=== PATIENT | female | born 1955 | race Caucasian/White ===

== ENCOUNTER 2017-10-19 14:09 | Emergency (ER) | payer OTHER, SELFPAY ==
[2017-10-19] MEDS ORDERED: MORPHINE 4 MG/ML SYR ONE (15:01)
[2017-10-19] MEDS ORDERED: ONDANSETRON 4 MG/2 ML VIAL ONE (15:02)
--- NOTE | 2017-10-19 17:46 | EDPHYS ---
Physician Documentation [facility] Name: Bernadine Dalal Age: 62 yrs Sex: Female : 1955 Arrival Date: 10/19/2017 Time: 14:12 Bed 23 Private MD: Patric Cole E ED Physician Osito Rodriguez HPI: 10/19 14:46 This 62 yrs old Female presents to ER via Ambulatory with complaints of Hip jmm Pain. 14:46 The patient or guardian reports pain. The complaints affect the left hip. Onset: The jmm symptoms/episode began/occurred gradually, 4 day(s) ago. This is a 62 year old female with a history of svt and hip fracture with multiple revisions that presents to the ED with worsening left lateral hip pain over the past 3 days. Patient states she stepped in a hole 4 days prior with no initial pain to her hip. Patient complains of worsening pain since. Patient is scheduled to see her orthopedic surgeon due to ongoing pain to the hip that she was most recently told, was most likely a muscle strain. Patient denies fever. Patient is concerned her hardware may be out of place. . Historical: - Allergies: 14:17 PENICILLINS; hj 14:17 Vancomycin; hj - Home Meds: 14:17 fentanyl patch [Active]; Robaxin Oral [Active]; hj - PMHx: 14:17 prolapsed uterus; SVT; UTI; hj - PSHx: 14:17 L hip; hj - Immunization history:: Adult Immunizations up to date. - Social history:: Smoking status: Patient/guardian denies using tobacco, Patient/guardian denies using alcohol. - Ebola Screening: : Patient negative for fever greater than or equal to 101.5 degrees Fahrenheit, and additional compatible Ebola Virus Disease symptoms Patient denies exposure to infectious person Patient denies travel to an Ebola-affected area in the 21 days before illness onset. ROS: 14:46 Constitutional: Negative for fever, chills, and weight loss, Cardiovascular: Negative jmm for chest pain, palpitations, and edema, Respiratory: Negative for shortness of breath, cough, wheezing, and pleuritic chest pain. 14:46 Neuro: Negative for headache, weakness, numbness, tingling, and seizure. 14:46 MS/extremity: Positive for pain. 14:46 All other systems are negative. Exam: 14:46 Head/Face: atraumatic. Chest/axilla: Normal chest wall appearance and motion. [facility] Cardiovascular: Regular rate and rhythm. No edema appreciated Respiratory: Normal respirations, no respiratory distress appreciated 14:46 Constitutional: The patient appears alert, awake, uncomfortable. 14:46 Musculoskeletal/extremity: ROM: limited passive range of motion due to pain, in the left hip, mild tenderness on palpation of the left lateral proximal femur. 14:46 Skin: Appearance: Color: normal in color. 14:46 Neuro: Orientation: is normal, Mentation: is normal, Memory: is normal. 14:46 Psych: Behavior/mood is pleasant, cooperative. Vital Signs: 14:18 BP 139 / 91; Pulse 75; Resp 18; Temp 98.0; Pulse Ox 100% on R/A; Weight 88.9 kg; Height hj 5 ft. 9 in. (175.26 cm); Pain 10/10; 15:11 BP 130 / 76; Pulse 73; Resp 18; Pulse Ox 97% on R/A; Pain 8/10; mg2 16:48 BP 109 / 71; Pulse 60; Resp 18; Pulse Ox 100% on R/A; tl3 18:02 BP 108 / 67; Pulse 67; Resp 18; Pulse Ox 98% on R/A; tl3 14:18 Body Mass Index 28.94 (88.90 kg, 175.26 cm) MDM: 14:46 Patient medically screened. [facility] 17:16 Data reviewed: vital signs, EMS record, radiologic studies, plain films. Response to [facility] treatment: the patient's symptoms have markedly improved after treatment, After administration of analgesics, the patient is able to bear weight without difficulty. Patient states feeling much better. . 17:41 Physician consultation: Jerman Wayne MD. ED course: Patient advised to follow up with [facility] orthopedics for further evaluation. otherwise given strict return precautions. . 10/19 14:46 Order name: Hip Left 2 View XRAY; Complete Time: 17:49 [facility] Administered Medications: 15:09 Drug: morphine 4 mg Route: IVP; Site: left hand; mg2 15:56 Follow up: Response: Pain is decreased tl3 15:09 Drug: Zofran 4 mg Route: IVP; Site: left hand; mg2 15:55 Follow up: Response: No adverse reaction tl3 Disposition: 10/19/17 17:45 Discharged to Home. Impression: Pain in left hip. - Condition is Stable. - Discharge Instructions: Joint Pain. - Prescriptions for Zanaflex 4 mg Oral tablet - take 1 tablet by ORAL route every 6 hours as needed not to exceed 3 doses in 24 hours; 20 tablet. Ultram 50 mg Oral Tablet - take 1 tablet by ORAL route every 6 hours As needed; 20 tablet. - Medication Reconciliation Form, Thank You Letter, Antibiotic Education, Prescription Opioid Use form. - Follow up: Private Physician; When: 2 - 3 days; Reason: Recheck today's complaints, Continuance of care, Re-evaluation by your physician. Addendum: 10/23/2017 22:13 Co-signature as Attending Physician, Osito Rodriguez MD Available for consultation at p s1 all times. . Signatures: Dispatcher [employer] EDMS Donald Diop PA PA jmm Joaquin, Henry, RN RN hj Osito Rodriguez MD MD ps1 Ginette Bryant RN RN tl3 Forest Duncan RN RN mg2 Corrections: (The following items were deleted from the chart) 10/19 18:04 17:45 10/19/2017 17:45 Discharged to Home. Impression: Pain in left hip. Condition is tl3 Stable. Forms are Medication Reconciliation Form, Thank You Letter, Antibiotic Education, Prescription Opioid Use. Follow up: Private Physician; When: 2 - 3 days; Reason: Recheck today's complaints, Continuance of care, Re-evaluation by your physician. praveen
--- NOTE | 2017-10-19 17:46 | RAD REPORT ---
EXAM DESCRIPTION: RAD - Hip Left 2 View - 10/19/2017 3:42 pm CLINICAL HISTORY: Left hip and leg pain, pain with ambulation. Extensive surgical history COMPARISON: September 2014 FINDINGS: Multiple AP and lateral views of the left hip and left hip prosthesis obtained. Since the prior examination long length surgical hardware has been removed from the lateral femur. The long thalia m revision implant remains in place. No subsidence of the implants. Bones are osteopenic. No fracture is identifiable. There is lucency along the medial margin of the femoral component in the intertroch anteric region. No lucency along the lateral margin of the proximal implant. Femoral component is wel l positioned. No fracture or acute left armida pelvic finding. No pathologic bone process. No periartic ular mass or hematoma seen. IMPRESSION: No fracture or acute bone process identified. No subsidence of the long-stem revision implant.
--- NOTE | 2017-10-19 17:46 | ER ---
Nurse's Notes [facility] Name: Bernadine Dalal Age: 62 yrs Sex: Female : 1955 Arrival Date: 10/19/2017 Time: 14:12 Bed 23 Private MD: Patric Cole E Diagnosis: Pain in left hip Presentation: 10/19 14:14 Presenting complaint: Patient states: art had 2 hip replacement, now my L hip is hj hurting and shifting; went to my ortho and gave a a steroid shot; i go to my pain doctor for fentanyl patch , now the fentanyl is not working with the pain that i have; its hard for me to walk with this; pain 12/19;. Transition of care: patient was not received from another setting of care. Onset of symptoms was October 19, 2017. Risk Assessment: Do you want to hurt yourself or someone else? Patient reports no desire to harm self or others. Initial Sepsis Screen: Does the patient meet any 2 criteria? No. Patient's initial sepsis screen is negative. Does the patient have a suspected source of infection? No. Patient's initial sepsis screen is negative. Care prior to arrival: None. 14:14 Method Of Arrival: Ambulatory 14:14 Acuity: JODEE 4 hj Triage Assessment: 14:17 General: Appears in no apparent distress. uncomfortable, Behavior is calm, cooperative, hj appropriate for age. General: Behavior is crying. Pain:. Pain: Complains of pain in left hip. Historical: - Allergies: 14:17 PENICILLINS; hj 14:17 Vancomycin; hj - Home Meds: 14:17 fentanyl patch [Active]; Robaxin Oral [Active]; hj - PMHx: 14:17 prolapsed uterus; SVT; UTI; hj - PSHx: 14:17 L hip; hj - Immunization history:: Adult Immunizations up to date. - Social history:: Smoking status: Patient/guardian denies using tobacco, Patient/guardian denies using alcohol. - Ebola Screening: : Patient negative for fever greater than or equal to 101.5 degrees Fahrenheit, and additional compatible Ebola Virus Disease symptoms Patient denies exposure to infectious person Patient denies travel to an Ebola-affected area in the 21 days before illness onset. Screenin:18 Abuse screen: Denies threats or abuse. Denies injuries from another. Nutritional hj screening: No deficits noted. Tuberculosis screening: No symptoms or risk factors identified. Fall Risk Fall in past 12 months (25 points). Assessment: 15:10 General: Appears in no apparent distress. comfortable, Behavior is calm, cooperative. mg2 Pain: Complains of pain in pelvis and left hip Pain does not radiate. Pain currently is 8 out of 10 on a pain scale. Quality of pain is described as aching, Pain began gradually, Is intermittent, Alleviated by medications, Aggravated by increased activity, repositioning, weight bearing. Neuro: Level of Consciousness is awake, alert, obeys commands, Oriented to person, place, time, situation. Cardiovascular: Capillary refill < 3 seconds Patient's skin is warm and dry. Respiratory: Airway is patent Respiratory effort is even, unlabored, Respiratory pattern is regular, symmetrical. GI: No signs and/or symptoms were reported involving the gastrointestinal system. : No signs and/or symptoms were reported regarding the genitourinary system. EENT: No signs and/or symptoms were reported regarding the EENT system. Derm: Skin is intact, Skin is pink, warm \T\ dry. normal. Musculoskeletal: Circulation, motion, and sensation intact. Reports pain in left hip. 16:48 Reassessment: Patient appears in no apparent distress at this time. No changes from tl3 previously documented assessment. Patient and/or family updated on plan of care and expected duration. Pain level reassessed. Patient is alert, oriented x 3, equal unlabored respirations, skin warm/dry/pink. awaiting radiology report. 18:02 Reassessment: Patient appears in no apparent distress at this time. No changes from tl3 previously documented assessment. Patient and/or family updated on plan of care and expected duration. Pain level reassessed. Patient is alert, oriented x 3, equal unlabored respirations, skin warm/dry/pink. Vital Signs: 14:18 BP 139 / 91; Pulse 75; Resp 18; Temp 98.0; Pulse Ox 100% on R/A; Weight 88.9 kg; Height hj 5 ft. 9 in. (175.26 cm); Pain 10/10; 15:11 BP 130 / 76; Pulse 73; Resp 18; Pulse Ox 97% on R/A; Pain 8/10; mg2 16:48 BP 109 / 71; Pulse 60; Resp 18; Pulse Ox 100% on R/A; tl3 18:02 BP 108 / 67; Pulse 67; Resp 18; Pulse Ox 98% on R/A; tl3 14:18 Body Mass Index 28.94 (88.90 kg, 175.26 cm) ED Course: 14:12 Patient arrived in ED. sb2 14:13 Patric Cole MD is Private Physician. sb2 14:16 Triage completed. hj 14:18 Arm band placed on right wrist. hj 14:18 Patient has correct armband on for positive identification. Bed in low position. Call light in reach. Side rails up X 1. 14:36 Donald Diop PA is PHCP. m 14:36 Osito Rodriguez MD is Attending Physician. jmm 15:09 Inserted saline lock: 22 gauge in left hand, using aseptic technique. mg2 15:33 Ginette Bryant, TAMMY is Primary Nurse. tl3 15:33 Patient moved to radiology. tl3 15:43 Hip Left 2 View XRAY In Process Unspecified. EDMS 18:02 No provider procedures requiring assistance completed. IV discontinued, intact, tl3 bleeding controlled, No redness/swelling at site. Pressure dressing applied. Administered Medications: 15:09 Drug: morphine 4 mg Route: IVP; Site: left hand; mg2 15:56 Follow up: Response: Pain is decreased tl3 15:09 Drug: Zofran 4 mg Route: IVP; Site: left hand; mg2 15:55 Follow up: Response: No adverse reaction tl3 Outcome: 17:45 Discharge ordered by MD. [facility] 18:02 Discharged to home ambulatory. tl3 18:02 Condition: stable 18:02 Discharge instructions given to patient, Instructed on discharge instructions, follow up and referral plans. medication usage, Demonstrated understanding of instructions, follow-up care, medications, Prescriptions given X 2. 18:04 Patient left the ED. tl3 Signatures: Dispatcher [employer] EDMS Donald Diop PA PA Boogie Le, Stephanie Ma RN sb2 Ginette Bryant, RN RN tl3 Forest Duncan, TAMMY RN mg2 Corrections: (The following items were deleted from the chart) 14:21 14:18 Pulse 75bpm; Resp 18bpm; Pulse Ox 100% RA; Temp 98.0F; 88.9 kg; Height 5 ft. 9 hj in.; BMI: 28.9; Pain 12/19; hj
[2017-10-19 19:38] VITALS: TEMP 98
[2017-10-19 19:42] VITALS: BP 108/67; O2SAT 98
== END 2017-10-19 18:04 | disposition home or self-care (01) ==
LOC: ER 14:09
DX: M25.552 Pain in left hip (principal); Z88.0 Allergy status to penicillin; Z88.3 Allergy status to other anti-infective agents
CPT/HCPCS: 96374; 96375; 99284; J2405

== ENCOUNTER 2018-02-14 12:20 | Observation (INO) | payer OTHER ==
[2018-02-14 12:57] LABS: Absolute Lymphocytes (CBC) 2.1 K/uL (0.7-4.9); Absolute Monocytes 0.6 K/uL (0.1-1.3); Absolute Neutrophil 4.1 K/uL (1.8-8.0); Eosinophils % 5.9 % (0-4.4); Lymphocytes % 28.5 % (15.3-44.8); MCV 93.1 fL (80-100); MPV 9.7 fL (7.6-11.3); Monocytes % 8.6 % (3.3-12.3); RBC Red Blood Cell Count 4.41 M/uL (3.86-4.86)
[2018-02-14 13:05] LABS: Protime INR 0.99
[2018-02-14] MEDS ORDERED: MORPHINE 4 MG/ML SYR ONE (13:22)
[2018-02-14] MEDS ORDERED: ONDANSETRON 4 MG/2 ML VIAL ONE (13:22)
[2018-02-14 13:26] LABS: ALT/SGPT 33 U/L (12-78); AST/SGOT 31 U/L (15-37); Albumin 3.6 g/dL (3.4-5.0); Alkaline Phosphatase 120 U/L (45-117); BUN Blood Urea Nitrogen 10 mg/dL (7-18); Bicarbonate 27 mmol/L (21-32); Bilirubin Direct 0.1 mg/dL (0-0.2); Bilirubin Total 0.5 mg/dL (0.2-1.0); Glucose Level 97 mg/dL (74-106); NT PRO-BNP 313 pg/mL (<125); Protein, Total 7.8 g/dL (6.4-8.2); Sodium Level 138 mmol/L (136-145); Troponin (Emerg Dept Use Only) < 0.02 ng/mL (0.0-0.045)
[2018-02-14] MEDS ORDERED: ACETAMINOPHEN 500 MG TAB PO PRN (14:10)
[2018-02-14] MEDS ORDERED: ONDANSETRON 4 MG/2 ML VIAL IV PRN (14:10)
--- NOTE | 2018-02-14 14:16 | ER ---
Nurse's Notes [facility] Name: Bernadine Dalal Age: 62 yrs Sex: Female : 1955 Arrival Date: 02/14/2018 Time: 12:20 Bed 16 Private MD: Diagnosis: Chest pain, unspecified Presentation: 02/14 12:24 Presenting complaint: Patient states: I feel like someone is stabbing an ice pick in my la1 chest and going in to my back. Transition of care: patient was not received from another setting of care. Onset of symptoms was February 14, 2018. Risk Assessment: Do you want to hurt yourself or someone else? Patient reports no desire to harm self or others. Initial Sepsis Screen: Does the patient meet any 2 criteria? No. Patient's initial sepsis screen is negative. Does the patient have a suspected source of infection? No. Patient's initial sepsis screen is negative. Care prior to arrival: None. 12:24 Method Of Arrival: Ambulatory la1 12:24 Acuity: JODEE 2 la1 Historical: - Allergies: 12:24 PENICILLINS; la1 12:24 Vancomycin; la1 - Home Meds: 16:27 muscle relaxant starts with a T [Active]; fentanyl patch [Active]; ch - PMHx: 12:24 prolapsed uterus; SVT; UTI; la1 16:27 fall/L hip fx, L hip infected after FX; ch - PSHx: 16:27 cardiac ablation; L hip; bladder "tacked in place"; ch - Immunization history:: Adult Immunizations up to date. - Social history:: Smoking status: Patient/guardian denies using tobacco. - Ebola Screening: : No symptoms or risks identified at this time. Screenin:36 Abuse screen: Denies threats or abuse. Denies injuries from another. Nutritional ch screening: No deficits noted. Tuberculosis screening: No symptoms or risk factors identified. Fall Risk None identified. Assessment: 13:00 General: Appears in no apparent distress. comfortable, Behavior is calm, cooperative, ch appropriate for age. Pain: Complains of pain in mid-sternal area Pain radiates to back Pain currently is 8 out of 10 on a pain scale. Pain began suddenly. Neuro: No deficits noted. Level of Consciousness is awake, alert, obeys commands. Cardiovascular: Heart tones S1 S2 present Capillary refill < 3 seconds in bilateral fingers toes Clubbing of nail beds is absent Patient's skin is warm and dry. Pulses are all present. Edema is absent. Respiratory: Airway is patent Respiratory effort is even, unlabored, Respiratory pattern is regular, Breath sounds are clear bilaterally. pt states it is tender with palpation and deep breath. GI: No signs and/or symptoms were reported involving the gastrointestinal system. Abdomen is round non-distended, Bowel sounds present X 4 quads. Abd is soft and non tender X 4 quads. Derm: Skin is pink, warm \\T\\ dry. 14:00 Reassessment: Patient appears in no apparent distress at this time. Patient and/or ch family updated on plan of care and expected duration. Pain level reassessed. Patient is alert, oriented x 3, equal unlabored respirations, skin warm/dry/pink. Patient states feeling better. Patient states symptoms have improved. 15:00 Reassessment: Patient appears in no apparent distress at this time. Patient and/or ch family updated on plan of care and expected duration. Pain level reassessed. Patient is alert, oriented x 3, equal unlabored respirations, skin warm/dry/pink. pt verb understanding of waiting for room assignment. Patient states feeling better. Patient states symptoms have improved. 15:56 Reassessment: Patient appears in no apparent distress at this time. Patient and/or ch family updated on plan of care and expected duration. Pain level reassessed. Patient is alert, oriented x 3, equal unlabored respirations, skin warm/dry/pink. attempting to call report now. 15:59 Reassessment: Patient appears in no apparent distress at this time. report called dayna garcia. Vital Signs: 12:24 BP 159 / 99; Pulse 90; Resp 16; Temp 97.4; Pulse Ox 98% on R/A; Weight 83.91 kg; la1 13:00 BP 142 / 72; Pulse 65; Resp 18; Temp 98.2; Pulse Ox 99% on R/A; Pain 8/10; ch 14:36 BP 163 / 91; Pulse 62; Resp 15; Temp 98.4; Pulse Ox 99% on R/A; Pain 3/10; ch 15:59 BP 158 / 86; Pulse 58; Resp 14; Temp 98.4; Pulse Ox 99% on R/A; Pain 4/10; ch 16:27 BP 140 / 101; Pulse 56; Resp 18; Temp 98.2; Pulse Ox 99% on R/A; Pain 3/10; ch ED Course: 12:20 Patient arrived in ED. as 12:24 Triage completed. la1 12:25 Arm band placed on right wrist. la1 12:31 Donald Diop PA is PHCP. [facility] 12:31 Jevon Hernandez MD is Attending Physician. [facility] 12:47 Initial lab(s) drawn, by me, sent to lab. Inserted saline lock: 20 gauge in left dh3 antecubital area, using aseptic technique. Blood collected. 12:52 Verena Long, TAMMY is Primary Nurse. ch 13:10 Patient has correct armband on for positive identification. Placed in gown. Bed in low ch position. Call light in reach. Side rails up X 1. surveillance monitor on. Pulse ox on. NIBP on. 13:10 No provider procedures requiring assistance completed. Patient maintains SpO2 ch saturation greater than 95% on room air. 14:08 Kaila Snow MD is Hospitalizing Provider. m 14:37 No apparent distress. Resting quietly. ch 14:40 XRAY Chest (1 view) In Process Unspecified. EDMS 15:59 Warm blanket given. ch 15:59 Inserted saline lock: 22 gauge in left wrist, using aseptic technique. IV discontinued, ch intact, bleeding controlled, No redness/swelling at site. Pressure dressing applied. Administered Medications: 13:26 Drug: morphine 4 mg Route: IVP; Site: left antecubital; ch 16:06 Follow up: Response: No adverse reaction; Marked relief of symptoms ch 13:26 Drug: Zofran 4 mg Route: IVP; Site: left antecubital; ch 16:05 Follow up: Response: No adverse reaction; Marked relief of symptoms ch 14:36 Drug: Aspirin Chewable Tablet 324 mg Route: PO; rb1 16:05 Follow up: Response: No adverse reaction; Marked relief of symptoms ch Outcome: 14:08 Decision to Hospitalize by Provider. jmm 15:59 Admitted to [facility] by [facility], via stretcher, room 428, with chart, Report called to [place] 15:59 Condition: stable 15:59 Instructed on the need for admit. 16:28 Patient left the ED. Signatures: Dispatcher [employer] Verena Navas RN RN Donald Zuleta PA PA jmm Martinez, Amelia as Attema, Lee, RN RN la1 Vivian Lewis RN RN rb1 Stephy Aviles 3 Corrections: (The following items were deleted from the chart) 15:56 15:29 Reassessment: Patient appears in no apparent distress at this time. Patient ch and/or family updated on plan of care and expected duration. Pain level reassessed. Patient is alert, oriented x 3, equal unlabored respirations, skin warm/dry/pink. awaiting ekg and lab results still. Lab contacted, states it will be 5 min. ch
--- NOTE | 2018-02-14 14:16 | EDPHYS ---
Physician Documentation [facility] Name: Bernadine Daall Age: 62 yrs Sex: Female : 1955 Arrival Date: 02/14/2018 Time: 12:20 Bed 16 Private MD: ED Physician Jevon Hernandez HPI: 02/14 12:38 This 62 yrs old Female presents to ER via Ambulatory with complaints of Chest jmm Pain. 12:38 The patient or guardian reports chest pain that is located primarily in the substernal jmm area. Onset: acutely, .5 hour(s) ago. The pain radiates to the left shoulder. Associated signs and symptoms: Pertinent negatives: cough, shortness of breath. The chest pain is described as a pressure, stabbing. Duration: The patient or guardian reports a single episode, that is still ongoing. This is a 62 year old female with a history of SVT that presents to the ED with chest pain beginning while putting groceries up. Patient describes the pain as an ice pick stabbing her alternating with chest pressure. The pain radiates to the left lateral side of her chest. . Historical: - Allergies: 12:24 PENICILLINS; la1 12:24 Vancomycin; la1 - Home Meds: 16:27 muscle relaxant starts with a T [Active]; fentanyl patch [Active]; ch - PMHx: 12:24 prolapsed uterus; SVT; UTI; la1 16:27 fall/L hip fx, L hip infected after FX; ch - PSHx: 16:27 cardiac ablation; L hip; bladder "tacked in place"; ch - Immunization history:: Adult Immunizations up to date. - Social history:: Smoking status: Patient/guardian denies using tobacco. - Ebola Screening: : No symptoms or risks identified at this time. ROS: 12:38 Constitutional: Negative for fever, chills, and weight loss, Eyes: Negative for injury, jmm pain, redness, and discharge. 12:38 Respiratory: Negative for shortness of breath, cough, wheezing, and pleuritic chest pain, Abdomen/GI: Negative for abdominal pain, nausea, vomiting, diarrhea, and constipation, Neuro: Negative for headache, weakness, numbness, tingling, and seizure. 12:38 Cardiovascular: Positive for chest pain. 12:38 All other systems are negative. Exam: 12:38 Constitutional: This is a well developed, well nourished patient who is awake, alert, jmm and in no acute distress. Head/Face: atraumatic. Eyes: EOMI, no conjunctival erythema appreciated ENT: Moist Mucus Membranes Neck: Trachea midline, Supple 12:38 Cardiovascular: Regular rate and rhythm. No edema appreciated Respiratory: Normal respirations, no respiratory distress appreciated Abdomen/GI: Non distended, soft Back: Normal ROM Skin: General appearance color normal MS/ Extremity: Moves all extremities, no obvious deformities appreciated, no edema noted to the lower extremities Neuro: Awake and alert, normal gait Psych: Behavior is normal, Mood is normal, Patient is cooperative and pleasant 12:38 Chest/axilla: Palpation: tenderness, that is moderate, that partially reproduces the patient's complaints. 12:38 Cardiovascular: Rate: normal, Rhythm: regular, Pulses: no pulse deficits are appreciated. Vital Signs: 12:24 BP 159 / 99; Pulse 90; Resp 16; Temp 97.4; Pulse Ox 98% on R/A; Weight 83.91 kg; la1 13:00 BP 142 / 72; Pulse 65; Resp 18; Temp 98.2; Pulse Ox 99% on R/A; Pain 8/10; ch 14:36 BP 163 / 91; Pulse 62; Resp 15; Temp 98.4; Pulse Ox 99% on R/A; Pain 3/10; ch 15:59 BP 158 / 86; Pulse 58; Resp 14; Temp 98.4; Pulse Ox 99% on R/A; Pain 4/10; ch 16:27 BP 140 / 101; Pulse 56; Resp 18; Temp 98.2; Pulse Ox 99% on R/A; Pain 3/10; ch MDM: 12:37 Patient medically screened. jmm 14:07 The patient was given aspirin in the Emergency Department. Data reviewed: vital signs, [facility] nurses notes, lab test result(s), EKG, radiologic studies, plain films. Counseling: I had a detailed discussion with the patient and/or guardian regarding: the historical points, exam findings, and any diagnostic results supporting the discharge/admit diagnosis, lab results, radiology results, the need for further work-up and treatment in the hospital. ED course: I discussed the patient with Dr. Snow whom accepted admission. . 02/14 12:32 Order name: Basic Metabolic Panel; Complete Time: 13:[address] [facility] 02/14 12:32 Order name: CBC with Diff; Complete Time: 13:[address] [facility] 02/14 12:32 Order name: LFT's; Complete Time: 13:[address] [facility] 02/14 12:32 Order name: Magnesium; Complete Time: 13:[address] [facility] 02/14 12:32 Order name: NT PRO-BNP; Complete Time: 13:[address] [facility] 02/14 12:32 Order name: PT-INR; Complete Time: 13:[address] [facility] 02/14 12:32 Order name: Troponin (emerg Dept Use Only); Complete Time: 13:[address] [facility] 02/14 14:41 Order name: CBC with Automated Diff EDMS 02/14 14:41 Order name: CBC with Automated Diff EDMS 02/14 14:41 Order name: CBC with Automated Diff EDMS 02/14 14:41 Order name: CBC with Automated Diff EDMS 02/14 14:42 Order name: Comprehensive Metabolic Panel EDID 02/14 14:42 Order name: Comprehensive Metabolic Panel EDID 02/14 14:42 Order name: Comprehensive Metabolic Panel EDID 02/14 12:32 Order name: XRAY Chest (1 view); Complete Time: 14:[address] [facility] 02/14 12:32 Order name: EKG; Complete Time: 12:[address] [facility] 02/14 12:32 Order name: Cardiac monitoring; Complete Time: 13:[address] [facility] 02/14 12:32 Order name: EKG - Nurse/Tech; Complete Time: 12:[address] [facility] 02/14 12:32 Order name: IV Saline Lock; Complete Time: 12:[address] [facility] 02/14 12:32 Order name: Labs collected and sent; Complete Time: 12:[address] [facility] 02/14 14:41 Order name: Heart Healthy EDID 02/14 14:41 Order name: NPO EDID 02/14 14:42 Order name: Comprehensive Metabolic Panel EDID 02/14 14:42 Order name: Troponin I EDID 02/14 14:42 Order name: Troponin I EDID 02/14 14:42 Order name: Troponin I EDID 02/14 16:16 Order name: Urine Dipstick--Ancillary (enter results) 02/14 12:32 Order name: O2 Per Protocol; Complete Time: 12:[address] [facility] 02/14 12:32 Order name: O2 Sat Monitoring; Complete Time: 12:[address] [facility] Administered Medications: 13:26 Drug: morphine 4 mg Route: IVP; Site: left antecubital; ch 16:06 Follow up: Response: No adverse reaction; Marked relief of symptoms ch 13:26 Drug: Zofran 4 mg Route: IVP; Site: left antecubital; ch 16:05 Follow up: Response: No adverse reaction; Marked relief of symptoms ch 14:36 Drug: Aspirin Chewable Tablet 324 mg Route: PO; rb1 16:05 Follow up: Response: No adverse reaction; Marked relief of symptoms ch Disposition: 18:02 Co-signature as Attending Physician, Jevon Hernandez MD. rn Disposition: 02/14/18 14:08 Hospitalization ordered by Kaila Snow for Observation. Preliminary diagnosis is Chest pain, unspecified. - Bed requested for Telemetry/MedSurg (observation). - Status is Observation. ch - Condition is Stable. - Problem is new. - Symptoms have improved. UTI on Admission? No Signatures: Dispatcher [employer] EDMS Verena Long RN RN ch Shanon Finch RN RN dw Donald Diop PA PA [facility] Jevon Hernandez MD MD rn Attema, Lee RN RN laVivian Sorensen, RN RN rb1 Corrections: (The following items were deleted from the chart) 15:24 14:08 Hospitalization Ordered by Kaila Snow MD for Observation. Preliminary diagnosis dw is Chest pain, unspecified. Bed requested for Telemetry/MedSurg (observation). Status is Observation. Condition is Stable. Problem is new. Symptoms have improved. UTI on Admission? No. [facility] 16:28 15:24 02/14/2018 14:08 Hospitalization Ordered by Kaila Snow MD for Observation. ch Preliminary diagnosis is Chest pain, unspecified. Bed requested for Telemetry/MedSurg (observation). Status is Observation. Condition is Stable. Problem is new. Symptoms have improved. UTI on Admission? No. dw
[2018-02-14] MEDS ORDERED: ASPIRIN 81 MG CHEWABLE TABLET ONE (14:39)
--- NOTE | 2018-02-14 14:50 | RAD REPORT ---
EXAM DESCRIPTION: RAD - Chest Single View - 02/14/2018 2:03 pm CLINICAL HISTORY: Chest pain COMPARISON: May 2016 TECHNIQUE: AP portable chest image was obtained 1322 hours . FINDINGS: No focal lung parenchymal process. Scattered fibrotic changes match the comparison. Heart and vasculature are normal. No measurable pleural effusion and no pneumothorax. No acute bony abnorma lity seen. No acute aortic findings suspected. IMPRESSION: No acute cardiopulmonary process. No significant interval change.
[2018-02-14] MEDS: ENOXAPARIN 40 MG/0.4 ML SQ SCH (17:30)
[2018-02-14 17:34] VITALS: BMI 27.3
[2018-02-14 19:28] LABS: Urine Blood NEGATIVE (NEG); Urine Glucose NEGATIVE (NEG); Urine Protein NEGATIVE (NEG); Urine Specific Gravity 1.015 (1.005-1.030)
[2018-02-14] MEDS ORDERED: TIZANIDINE 4 MG TABLET PO PRN (21:37)
[2018-02-14] MEDS ORDERED: MORPHINE 2 MG/ML SYR IV PRN (21:38)
[2018-02-14] MEDS ORDERED: NITROGLYCERIN 0.4 MG/TAB SL PRN (21:38)
--- NOTE | 2018-02-14 21:50 | P.HP ---
Certification for Inpatient Patient admitted to: Observation With expected LOS: <2 Midnights Practitioner: I am a practitioner with admitting privileges, knowledge of patient current condition, hospital course, and medical plan of care. Services: Services provided to patient in accordance with Admission requirements found in Title 42 Section 412.3 of the Code of Federal Regulations Patient History Date of Service: 02/14/18 Primary Care Provider: Dr. Cole Reason for admission: Chest pain History of Present Illness: This is a 62 yr old female who is a former 3 ppd smoker admitted for chest pain. 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 Pain started while she was putting groceries in the car, which scared her and she drove to the ED. SHe describes the pain as sharp intially which then turned to pressure like pain radiating to the shoulder and throat area. Exacerbating factors include deep breathing. No alleivating factors. She did have a prior episode similar to this approximately 1 yr ago, which she did not go the hospital for. She denies any sob, CLAUDIO, light headedness, dizziness, syncope/ presyncope, vision changes, GI or complaints. In the ED, her BP was found to be elevated to 159/99, which improved to 142/72 after morphine. Her trops were negative x 1, her EKG was normal sinus rhythm. At the time of my exam, she was still having the chest discomfort, though it was more of a soreness. Denied any other symptoms. Allergies Penicillins Allergy (Mild, Verified 06/09/16 21:00) Hives/Rash vancomycin Allergy (Unknown, Verified 06/09/16 21:00) Hives/Rash Home Medications: Fentanyl Patch [Duragesic Patch*] 1 patch TOP Q72H 02/14/18 Tizanidine [Zanaflex*] 4 mg PO Q4HP PRN 02/14/18 clonazePAM [Clonazepam] 1 mg PO BEDTIME 02/14/18 - Past Medical/Surgical History Has patient received pneumonia vaccine in the past: No Diabetic: No -: SVT -: migraines -: prolapsed uterus -: UTI -: Cardiac Ablation -: 2010 left hip replacement 2012,2014 -: 2014 Hip replacement rplacement was replacement x 2 -: 03-19-2014 bladder surgery/Bladder Tack -: 2016 hysterectomy -: cardiac ablation - Family History Father -: Cancer Notes: Prostate, Lung Cancer Mother -: Heart disease ( at age 38 from cardiac arrest) - Social History Smoking Status: Former smoker (3 ppd for 27 years, quit in 2010) Alcohol use: No CD- Drugs: No Caffeine use: Yes Place of Residence: Home Review of Systems General: Unremarkable Eyes: Unremarkable ENT: Unremarkable Respiratory: Unremarkable Cardiovascular: Chest Pain, As per HPI Gastrointestinal: Unremarkable Genitourinary: Unremarkable Musculoskeletal: Unremarkable Integumentary: Unremarkable Neurological: Unremarkable Lymphatics: Unremarkable Physical Examination - Vital Signs Temperature: 98.2 F Blood Pressure: 140/101 Pulse: 56 Respirations: 18 - Physical Exam General: Alert, In no apparent distress, Oriented x3 HEENT: Atraumatic, PERRLA, Mucous membr. moist/pink, EOMI, Sclerae nonicteric Neck: Supple, 2+ carotid pulse no bruit, No LAD, Without JVD or thyroid abnormality Respiratory: Clear to auscultation bilaterally, Normal air movement Cardiovascular: Regular rate/rhythm, Normal S1 S2 Gastrointestinal: Normal bowel sounds, No tenderness Musculoskeletal: No tenderness Integumentary: No rashes Neurological: Normal gait, Normal speech, Normal strength at 5/5 x4 extr, Normal tone, Normal affect Lymphatics: No axilla or inguinal lymphadenopathy - Studies Laboratory Data (last 24 hrs) 02/14/18 12:45: PT 11.7, INR 0.99 02/14/18 12:45: WBC 7.4, Hgb 14.1, Hct 41.0, Plt Count 239 02/14/18 12:45: Sodium 138, Potassium 4.0, BUN 10, Creatinine 1.10, Glucose 97, Magnesium 2.0, Total Bilirubin 0.5, AST 31, ALT 33, Alkaline Phosphatase 120 H Assessment and Plan - Plan This is a 62 yr old female with: chest pain, rule out ACS Risk factors: Overweight, age, Family hx of cardiac related in mother at age 38, former 3 ppd smoker for 27 yrs (quit 2010) Cardiology consulted BB, ACEi, ASA, statin. IV morphine for pain control Nitro prn ECHO pending Trops negative x 2, pending 3rd EKG w/ normal sinus rhythm Hx of SVT, with ablation In NSR at this time, monitor with tele Hypertensive urgency Started ACEi, BB. Will monitor and adjust as needed Chronic hip pain Patient with fentanyl patch on, needs to be changed tomorrow. Ordered DVT Prophylaxis: Lovenox GI prophylaxis: Not needed Diet: Heart healthy, NPO after midnight Disposition: Admit to floor with tele. Monitor BP. pending symptomatic improvement. - Advance Directives Does patient have a Living Will: No Does patient have a Durable POA for Healthcare: No Physician Review: Patient Assessed, Agree with Above Assessment and Plan Time Spent Managing Pts Care (In Minutes): 55
[2018-02-15 05:13] LABS: Absolute Lymphocytes (CBC) 2.2 K/uL (0.7-4.9); Absolute Monocytes 0.6 K/uL (0.1-1.3); Absolute Neutrophil 2.9 K/uL (1.8-8.0); Basophils % 1.4 % (0-1.3); Hematocrit 36.6 % (36.0-45.0); MCV 92.6 fL (80-100); MPV 9.9 fL (7.6-11.3); Monocytes % 9.6 % (3.3-12.3); RBC Red Blood Cell Count 3.95 M/uL (3.86-4.86)
[2018-02-15 05:23] LABS: Magnesium 2.1 mg/dL (1.8-2.4); Phosphorus 3.7 mg/dL (2.5-4.9)
[2018-02-15 05:36] LABS: Albumin 2.9 g/dL (3.4-5.0); Bilirubin Total 0.4 mg/dL (0.2-1.0); Potassium 3.9 mmol/L (3.5-5.1); Protein, Total 6.3 g/dL (6.4-8.2)
[2018-02-15] MEDS ORDERED: METOPROLOL TAR 25 MG TAB PO SCH (06:00)
[2018-02-15] MEDS ORDERED: REGADENOSON 0.4 MG/5 ML SYR IV ONE (08:09)
--- NOTE | 2018-02-15 08:34 | EKG ---
Test Date: 2018-02-14 Test Time: 12:39:44 Entry Level Project Coordinator: AG/D MEASUREMENT RESULTS: Intervals: Rate: 69 OH: 134 QRSD: 94 QT: 412 QTc: 441 Hayden: P: 25 OH: 134 QRS: -12 T: 54 INTERPRETIVE STATEMENTS: Normal sinus rhythm Normal ECG Compared to ECG 05/17/2016 06:30:49 Sinus bradycardia no longer present Electronically Signed On 02-15-18 08:33:07 COIL REPAIR TECHNICIAN by Froilan Gold
[2018-02-15] MEDS: ENOXAPARIN 40 MG/0.4 ML SQ SCH (08:49)
[2018-02-15] MEDS ORDERED: ASPIRIN EC 81 MG TAB PO SCH (09:00)
[2018-02-15] MEDS ORDERED: POTASSIUM CL SA 10 MEQ TAB PO ONE (09:00)
[2018-02-15] MEDS ORDERED: FENTANYL 50 MCG/PATCH TD SCH (09:00)
[2018-02-15] MEDS ORDERED: LISINOPRIL 5 MG TAB PO SCH (09:00)
[2018-02-15 09:27] VITALS: O2SAT 98
--- NOTE | 2018-02-15 10:49 | RAD REPORT ---
EXAM DESCRIPTION: NM - Rest Stress Cardiac Imaging - 02/15/2018 10:37 am CLINICAL HISTORY: CP Chest pain. COMPARISON: Rest Stress Cardiac Imaging dated 05/17/2016 TECHNIQUE: The patient was administered approximately 10mCi of Tc 99m Sestamibi prior to resting SPE CT imaging of the heart. The patient was then administered approximately 30 mCi of Tc 99m Sestamibi f ollowing exercise or pharmacologic stress. Multiplanar SPECT images were reviewed. FINDINGS: A small area of stress-induced ischemia is seen along the inferior wall near the apex. No fixed defect is seen to suggest hibernating myocardium or scarred myocardium. The end diastolic volume is 114 ml, the end systolic volume is 53 ml, and the ejection fraction is 53 %. IMPRESSION: Small area of stress-induced ischemia suspected along the inferior wall near the apex.
[2018-02-15] MEDS ORDERED: IBUPROFEN 400 MG TAB PO ONE (11:24)
--- NOTE | 2018-02-15 14:49 | CON ---
Date of Consultation: 02/15/[address] Snow's service on 02/14/2018. Reason For Consultation: Chest pain. History Of Present Illness: Ms. Dalal is a 62-year-old [place] woman. Most of her histor y is secondary to mitral valve prolapse, positive tobacco use, anxiety, chronic pain. She has had an ablation for SVT approximately 21 years ago with no further issue, has a history of mitral valve pro lapse by echocardiography in 05/26 without any mitral regurgitation, had a negative Lexiscan then as well. Came in with hypertension. She described an ice-pick sharp sensation in the chest that radiat ed to the back without any nausea, vomiting, diaphoresis, PND, orthopnea, pedal edema, palpitations, or syncope. So far, her EKG is negative. Chest x-ray is negative. Troponin is negative. Allergies: SHE IS ALLERGIC TO PENICILLIN AND VANCOMYCIN. Review of Systems: Positive for nose bleed. Positive tobacco. Social History: Negative. Family History: Noncontributory. Medications: Include clonazepam, fentanyl, and Zanaflex. Physical Examination: Her pressure initially was 160/100, then is 140/100, the last one was normal. She is slightly anxiou s, but feeling good. No symptoms. No acute distress. Sinus rhythm. HEENT: Negative. Neck: Supple without any bruit, lymphadenopathy, JVD, or thyromegaly. Chest: Clear to auscultation and percussion. Cardiac: Revealed a regular rhythm and rate without any murmurs, gallops, or rubs. Abdomen: Benign. Extremities: Revealed no clubbing, cyanosis, or edema. Diagnostic Data: As stated earlier. Impression And Plan: The patient with multiple risk factors for heart disease including t obacco use, hypertension. I think it is reasonable to do an echocardiogram and a chemical stress shakira t again as we did approximately 2 years ago to rule out coronary artery disease and/or cardiomyopathy . If these are negative, she can go home. Her primary care physician is Dr. Gelacio Cole. DOLORES/IDA Voice ID: [id number] Report ID: [id number]
[2018-02-15] MEDS ORDERED: D5 0.45 NS 1,000 ML IV SCH (15:00)
--- NOTE | 2018-02-15 15:12 | TREADPHA ---
DX: CHEST PAIN Date of Study: 02/15/18 Ht: 5 9 Wt: 185 lb 0 oz Consulting Physician: ABELARDO MEDICATIONS: TYLENOL, LIPITOR, ASPIRIN, LOVENOX, PRINIVIL, LOPRESSOR, KLONOPIN, NITROSTAT. HISTORY: 62 YEAR OLD FEMALE HERE FOR CHEST PAIN. HISTORY OF SUPRA VENTRICULAR TACHYCARDIA PHYSICIAL EXAMINATION: RESTING B.P.: 128/75 RESTING H.R.: 56 RESTING EKG: SINUS BRADYCARDIA PROTOCOL: LEXISCAN EXERCISE TIME: 3:30 B.P. AT PEAK STRESS: 142/65 IMPRESSION: LEXISCAN STRESS TEST COMPLETED. CARDIOLITE INJECTED PER PROTOCOL. RARE PREMATURE VENTRICULAR COMPLEXES AND PREMATURE ATRIAL COMPLEXES NOTED. DENIES ANY CHEST PAIN. SEE NUCLEAR MEDICINE REPORT.
--- NOTE | 2018-02-15 15:14 | ECHO ---
HEIGHT: 5 ft 9 in WEIGHT: 185 lb 0 oz DATE OF STUDY: 02/15/[address]: Kaila Snow MD 2-DIMENSIONAL: YES M.MODE: YES DOPPLER: YES COLOR FLOW: YES TDS: NO PORTABLE: NO DEFINITY: NO BUBBLE STUDY: NO DIAGNOSIS: CHEST PAIN CARDIAC HISTORY: CATHERIZATION: NO SURGERY: NO PROSTHETIC VALVE: NO PACEMAKER: NO MEASUREMENTS (cm) DIASTOLIC (NORMALS) SYSTOLIC (NORMALS) IVSd 1.1 (0.6-1.2) LA Diam 3.3 (1.9-4.0) LVEF 58% LVIDd 4.5 (3.5-5.7) LVIDs 3.1 (2.0-3.5) %FS 30% LVPWd 1.1 (0.6-1.2) Ao Diam 3.1 (2.0-3.7) 2 DIMENSIONAL ASSESSMENT: RIGHT ATRIUM: NORMAL LEFT ATRIUM: NORMAL RIGHT VENTRICLE: NORMAL LEFT VENTRICLE: NORMAL TRICUSPID VALVE: NORMAL MITRAL VALVE: NORMAL PULMONIC VALVE: NORMAL AORTIC VALVE: NORMAL PERICARDIAL EFFUSION: NONE AORTIC ROOT: NORMAL LEFT VENTRICULAR WALL MOTION: NORMAL. DOPPLER/COLOR FLOW: MILD TRICSPID REGURGITATION, AORTIC REGURGITATION. COMMENTS: MILD TRICSPID AND AORTIC REGURGITATION. NORMAL LEFT VENTRICULAR EJECTION FRACTION AND SIZE. NO WALL MOTION ABNORMALITY. NO EFFUSION. TECHNOLOGIST: IVETT HALE
[2018-02-15 17:15] VITALS: BP 117/54; TEMP 98
[2018-02-15] MEDS ORDERED: ATORVASTATIN 20 MG TAB PO SCH (21:00)
[2018-02-15] MEDS ORDERED: clonazePAM 1 MG TAB PO SCH (21:00)
== END 2018-02-15 18:14 | disposition home or self-care (01) ==
LOC: ER 12:20 → ERHOLD 14:11 → 4TH 16:01
PROVIDERS: ADMIT Family Medicine; ATTEND Family Medicine
DX: R07.9 Chest pain, unspecified (principal); I16.0 Hypertensive urgency; M25.559 Pain in unspecified hip; Z87.891 Personal history of nicotine dependence; Z88.0 Allergy status to penicillin; Z96.642 Presence of left artificial hip joint
CPT/HCPCS: 36415; 71045; 78452; 80048; 80053; 80061; 80076; 81003; 83735; 83880; 84100; 84484; 85025; 85610; 93005; 93017; 93306; 94760; 96374; 96375; 99285; A9500; G0378; J1650; J2405; J2785

== ENCOUNTER 2018-02-26 09:13 | Day surgery (SDC) | payer OTHER ==
[2018-02-22 12:19] LABS: Protime INR 0.98
[2018-02-26] MEDS ORDERED: NA CHLORIDE 0.9% 500 ML ONE (10:13)
[2018-02-26] MEDS ORDERED: MIDAZOLAM HCL 2 MG/2 ML INJ ONE ×2 (11:27→11:38)
[2018-02-26] MEDS ORDERED: ATROPINE SULF 1 MG/10 ML SYR IV ONE (11:28)
[2018-02-26] MEDS ORDERED: FENTANYL CITR 100 MCG/2 ML ONE (11:28)
[2018-02-26] MEDS ORDERED: NA CHLORIDE 0.9% 0 ML ONE (11:28)
--- NOTE | 2018-02-26 12:28 | OP ---
Surgeon: Jose Ball MD In School Suspension Coordinator: Altaf Castellanos. Procedure: The patient is a 62-year-old, a patient of Dr. De Anda. Had been in the hospital approxim ately 2 weeks ago with chest pain, had an abnormal Cardiolite. She was sent home and set up for an o utpatient heart catheterization today. She was brought to the dental laboratory technician today, 02/26/2018, prepped an d draped in routine sterile fashion. She had a left heart catheterization with selective coronary ar teriogram. Indication was chest pain, abnormal Cardiolite. The 6-Monegasque catheters with sheath were introduced in the right common femoral artery. Angiogram there was normal. Angio-Seal was used to c lose the case. 6-Monegasque catheters, Melody were used to do the catheterization. She had a normal le ft main LAD and circumflex. She was left dominant. Her RCA was small and nondominant, but free of d isease. There were no complications. Blood Loss: 5 cc. Postoperative Diagnoses: Positive Cardiolite with chest pain, normal heart catheterization. Plan: Plan is to continue medical therapy. Total conscious sedation was 30 minutes. Disposition: The patient will go home today after 2 hours of bedrest, and she will see me in the off ice in 2 weeks. DOLORES/IDA Voice ID: [id number] Report ID: [id number]
[2018-02-26] MEDS ORDERED: HEPA 1000U/500MLS 1,000 UNIT/500 ML BAG IV ONE (12:34)
[2018-02-26 13:36] VITALS: BP 112/53; TEMP 98.1; O2SAT 98
== END 2018-02-26 13:51 | disposition home or self-care (01) ==
LOC: CCL 09:13
DX: R94.39 Abnormal result of other cardiovascular function study (principal); R07.9 Chest pain, unspecified; I10 Essential (primary) hypertension; I34.1 Nonrheumatic mitral (valve) prolapse; F41.9 Anxiety disorder, unspecified; G89.29 Other chronic pain; F17.200 Nicotine dependence, unspecified, uncomplicated; Z79.891 Long term (current) use of opiate analgesic; Z79.899 Other long term (current) drug therapy
CPT/HCPCS: 36415; 85610; 85730; 93454; C1760; C1893; J0583; J2250; J3010

== ENCOUNTER 2018-03-06 11:06 | Emergency (ER) | payer OTHER ==
--- NOTE | 2018-03-06 12:31 | RAD REPORT ---
EXAM DESCRIPTION: RAD - Chest Pa And Lat (2 Views) - 03/06/2018 12:25 pm CLINICAL HISTORY: COUGH Chest pain. COMPARISON: Chest Single View dated 02/14/2018; Chest Single View dated 06/09/2016; Chest Single View dated 05/17/2016; Chest Single View dated 05/16/2016 FINDINGS: Mild linear subsegmental atelectasis suspected left upper lung. The lungs are otherwise cl ear. The heart is normal in size. No displaced fractures. IMPRESSION: No acute or concerning finding suspected.
[2018-03-06] MEDS ORDERED: IPRATROPIUM BROM 0.5MG/2.5ML ONE (12:40)
[2018-03-06] MEDS ORDERED: LEVALBUTEROL 1.25 MG/3 ML NEB ONE (12:41)
--- NOTE | 2018-03-06 13:22 | EDPHYS ---
Physician Documentation [facility] Name: Bernadine Dalal Age: 62 yrs Sex: Female : 1955 Arrival Date: 03/06/2018 Time: 11:16 Bed 28 Private MD: Patric Cole E ED Physician Clement Beltre HPI: 03/06 13:19 This 62 yrs old Female presents to ER via Ambulatory with complaints of kb Cough, Headache. 13:19 The patient or guardian reports cough, that is intermittent, described as severe, with kb no sputum, flu symptoms, low-grade fever, myalgias. Onset: The symptoms/episode began/occurred 5 day(s) ago. Severity of symptoms: At their worst the symptoms were moderate, in the emergency department the symptoms are unchanged. Modifying factors: The symptoms are alleviated by nothing, the symptoms are aggravated by nothing. Associated signs and symptoms: Pertinent positives: fever, rhinorrhea, Pertinent negatives: chest pain, diarrhea, ear ache, nausea, sore throat, vomiting. The patient has not experienced similar symptoms in the past, but family has similar symptoms. The patient has not recently seen a physician. Historical: - Allergies: 11:20 PENICILLINS; aj1 11:20 Vancomycin; aj1 - PMHx: 11:20 fall/L hip fx, L hip infected after FX; prolapsed uterus; SVT; UTI; Migraines; aj1 ROS: 13:19 ENT: Negative for injury, pain, and discharge, Neck: Negative for injury, pain, and kb swelling, Cardiovascular: Negative for chest pain, palpitations, and edema, Abdomen/GI: Negative for abdominal pain, nausea, vomiting, diarrhea, and constipation, MS/Extremity: Negative for injury and deformity, Skin: Negative for injury, rash, and discoloration, Neuro: Negative for headache, weakness, numbness, tingling, and seizure. 13:19 Constitutional: Positive for body aches, fever, malaise, Negative for chills, fatigue, poor PO intake, weight loss. 13:19 Respiratory: Positive for cough, Negative for dyspnea on exertion, hemoptysis, orthopnea, pleurisy, shortness of breath, sputum production, wheezing. Exam: 13:20 Constitutional: This is a well developed, well nourished patient who is awake, alert, kb and in no acute distress. Head/Face: Normocephalic, atraumatic. ENT: Nares patent. No nasal discharge, no septal abnormalities noted. Tympanic membranes are normal and external auditory canals are clear. Oropharynx with no redness, swelling, or masses, exudates, or evidence of obstruction, uvula midline. Mucous membranes moist. Neck: Trachea midline, no thyromegaly or masses palpated, and no cervical lymphadenopathy. Supple, full range of motion without nuchal rigidity, or vertebral point tenderness. No Meningismus. Chest/axilla: Normal chest wall appearance and motion. Nontender with no deformity. No lesions are appreciated. Cardiovascular: Regular rate and rhythm with a normal S1 and S2. No gallops, murmurs, or rubs. Normal PMI, no JVD. No pulse deficits. Abdomen/GI: Soft, non-tender, with normal bowel sounds. No distension or tympany. No guarding or rebound. No evidence of tenderness throughout. Skin: Warm, dry with normal turgor. Normal color with no rashes, no lesions, and no evidence of cellulitis. MS/ Extremity: Pulses equal, no cyanosis. Neurovascular intact. Full, normal range of motion. Neuro: Awake and alert, GCS 15, oriented to person, place, time, and situation. Cranial nerves II-XII grossly intact. Motor strength 5/5 in all extremities. Sensory grossly intact. Cerebellar exam normal. Normal gait. 13:20 Respiratory: the patient does not display signs of respiratory distress, Respirations: normal, Breath sounds: rhonchi, that are moderate, are heard diffusely. Vital Signs: 11:20 BP 141 / 76; Pulse 91; Resp 20; Temp 99.6(O); Pulse Ox 97% on R/A; Weight 90.26 kg (R); aj1 Pain 10/10; 13:43 BP 136 / 82; Pulse 131; Resp 18; Pulse Ox 98% on R/A; tl3 MDM: 12:07 Patient medically screened. kb 13:20 Data reviewed: vital signs, nurses notes. Data interpreted: Pulse oximetry: on room air kb is 97 %. Interpretation: normal. 13:21 Counseling: I had a detailed discussion with the patient and/or guardian regarding: the kb historical points, exam findings, and any diagnostic results supporting the discharge/admit diagnosis, lab results, radiology results, the need for outpatient follow up, a family practitioner, to return to the emergency department if symptoms worsen or persist or if there are any questions or concerns that arise at home. 03/06 11:48 Order name: Flu; Complete Time: 12:28 kb 03/06 11:22 Order name: XRAY Chest Pa And Lat (2 Views); Complete Time: 12:32 aj1 Administered Medications: 12:41 Drug: Xopenex (3) 1.25 mg Route: Inhalation; sg 13:43 Follow up: Response: No adverse reaction tl3 12:41 Drug: AtroVENT Aerosol 0.5 mg Route: Inhalation; sg 13:43 Follow up: Response: No adverse reaction tl3 Disposition: 16:18 Co-signature as Attending Physician, Clement Beltre MD I agree with the assessment and kdr plan of care. Disposition: 03/06/18 13:21 Discharged to Home. Impression: Influenza due to identified novel influenza A virus. - Condition is Stable. - Discharge Instructions: Influenza, Adult, [id number]. - Prescriptions for Albuterol Sulfate 90 mcg/actuation - inhale 1-2 puff by INHALATION route every 4-6 hours; 1 Inhaler. - Medication Reconciliation Form, Thank You Letter, Antibiotic Education, Prescription Opioid Use form. - Follow up: Emergency Department; When: As needed; Reason: Worsening of condition. Follow up: Patric Cole MD; When: 2 - 3 days; Reason: Recheck today's complaints, Continuance of care, Re-evaluation by your physician. Signatures: Dispatcher [employer] EDMD Geovanna Roy, NURSERY MANAGER-C NURSERY MANAGER-Ckb Tiara Madrid RN RN aj1 Abbe Montes RN RN sg Clement Beltre MD MD [facility] Ginette Bryant RN RN tl3 Corrections: (The following items were deleted from the chart) 13:45 13:21 03/06/2018 13:21 Discharged to Home. Impression: Influenza due to identified tl3 novel influenza A virus. Condition is Stable. Forms are Medication Reconciliation Form, Thank You Letter, Antibiotic Education, Prescription Opioid Use. Follow up: Emergency Department; When: As needed; Reason: Worsening of condition. Follow up: Patric Cole; When: 2 - 3 days; Reason: Recheck today's complaints, Continuance of care, Re-evaluation by your physician. kb
--- NOTE | 2018-03-06 13:22 | ER ---
Nurse's Notes [facility] Name: Bernadine Dalal Age: 62 yrs Sex: Female : 1955 Arrival Date: 03/06/2018 Time: 11:16 Bed 28 Private MD: Patric Cole E Diagnosis: Influenza due to identified novel influenza A virus Presentation: 03/06 11:18 Presenting complaint: Patient states: Headache, non-productive cough since Sunday. aj1 States that she has been taking Tessalon pearls at home with no relief. Reports fever at home TMax 102. Transition of care: patient was not received from another setting of care. Onset of symptoms was February 2018. Risk Assessment: Do you want to hurt yourself or someone else? Patient reports no desire to harm self or others. Initial Sepsis Screen: Does the patient meet any 2 criteria? No. Patient's initial sepsis screen is negative. Does the patient have a suspected source of infection? Yes: Productive cough/pneumonia. Care prior to arrival: None. 11:18 Method Of Arrival: Ambulatory [facility] 11:18 Acuity: JODEE 4 aj1 Triage Assessment: 11:20 Headache History: The patient has had previous headaches and this one is similar to aj1 previous episodes. General: Appears in no apparent distress. uncomfortable, Behavior is calm, cooperative, appropriate for age. Pain: Complains of pain in face Pain currently is 10 out of 10 on a pain scale. Pain began 2-3 days ago. Also complains of nausea. Neuro: Level of Consciousness is awake, alert, obeys commands. Cardiovascular: Patient's skin is warm and dry. Respiratory: Airway is patent Respiratory effort is even, unlabored, Respiratory pattern is regular, symmetrical. Historical: - Allergies: 11:20 PENICILLINS; aj1 11:20 Vancomycin; aj1 - PMHx: 11:20 fall/L hip fx, L hip infected after FX; prolapsed uterus; SVT; UTI; Migraines; aj1 Screenin:43 Abuse screen: Denies threats or abuse. Nutritional screening: No deficits noted. tl3 Tuberculosis screening: No symptoms or risk factors identified. Fall Risk None identified. Vital Signs: 11:20 BP 141 / 76; Pulse 91; Resp 20; Temp 99.6(O); Pulse Ox 97% on R/A; Weight 90.26 kg (R); aj1 Pain 10/10; 13:43 BP 136 / 82; Pulse 131; Resp 18; Pulse Ox 98% on R/A; tl3 ED Course: 11:16 Patient arrived in ED. mr 11:17 Patric Cole MD is Private Physician. mr 11:20 Triage completed. aj1 11:20 Arm band placed on Patient placed in waiting room, Patient notified of wait time. aj1 11:56 Flu Sent. aj1 12:06 Geovanna Roy FNP-C is [facility]. kb 12:06 Clement Beltre MD is Attending Physician. kb 12:24 X-ray completed. Patient tolerated procedure well. Patient moved back from radiology. ls3 12:25 XRAY Chest Pa And Lat (2 Views) In Process Unspecified. EDMS 12:26 Abbe Montes, RN is Primary Nurse. sg 13:21 Patric Cole MD is Referral Physician. kb 13:43 Patient has correct armband on for positive identification. tl3 13:43 No provider procedures requiring assistance completed. Patient did not have IV access tl3 during this emergency room visit. Administered Medications: 12:41 Drug: Xopenex (3) 1.25 mg Route: Inhalation; sg 13:43 Follow up: Response: No adverse reaction tl3 12:41 Drug: AtroVENT Aerosol 0.5 mg Route: Inhalation; sg 13:43 Follow up: Response: No adverse reaction tl3 Outcome: 13:21 Discharge ordered by . kb 13:43 Discharged to home ambulatory. tl3 13:43 Condition: stable 13:43 Instructed on discharge instructions, follow up and referral plans. medication usage, Demonstrated understanding of instructions, follow-up care, medications, Prescriptions given X 1. 13:45 Patient left the ED. tl3 Signatures: Dispatcher [employer] EDNY Geovanna Roy FNP-C FNP-Tiara Cody RN RN aj1 Abbe Montes, RN TAMMY Noris Diaz Ginette Bryant RN RN tl3 Debbie Garcia ls3
[2018-03-06 14:05] VITALS: TEMP 99.6
[2018-03-06 14:06] VITALS: BP 136/82; O2SAT 98
== END 2018-03-06 13:45 | disposition home or self-care (01) ==
LOC: ER 11:06
DX: J10.1 Influenza due to other identified influenza virus with other respiratory manifestations (principal)
CPT/HCPCS: 71046; 87804; 99284

== ENCOUNTER 2019-01-20 09:10 | Emergency (ER) | payer OTHER ==
--- OUTSIDE RECORDS SUMMARY | 2019-01-20 09:12 | XMS REPORT ---
:1955 [facility] Address [address] [place] [address] Dr. Hernandez [address] [place] [id number] Care Team Providers Name Role Phone Unavailable Unavailable Unavailable Problems This patient has no known problems. Allergies, Adverse Reactions, Alerts This patient has no known allergies or adverse reactions. Medications This patient has no known medications.
[2019-01-20 09:58] LABS: Urine Blood NEGATIVE (NEG); Urine Glucose NEGATIVE (NEG); Urine Protein NEGATIVE (NEG)
[2019-01-20] MEDS ORDERED: ONDANSETRON 4 MG/2 ML VIAL ONE (10:02)
[2019-01-20] MEDS ORDERED: MORPHINE 4 MG/ML SYR ONE (10:02)
--- NOTE | 2019-01-20 10:19 | RAD REPORT ---
EXAM DESCRIPTION: CT - Stone Protocol - 01/20/2019 10:07 am CLINICAL HISTORY: Flank pain. FLANK PAIN COMPARISON: Abdomen Pelvis W Contrast dated 06/09/2016 TECHNIQUE: Axial images were obtained without oral or IV contrast. Lack of contrast limits solid org an and vascular assessment. The [id number] spans the entirety of the system partially obscuring uppermost abdomen and lung bases. Coronal reformatted images were obtained and reviewed. All CT scans are performed using dose optimization technique as appropriate and may include automated exposure control or mA/KV adjustment according to patient size. FINDINGS: The lower lung johsnon are clear. Imaged portions of the liver and spleen show no suspicious findings on non-contrast imaging.The gallb ladder is distended and contains small stones. The pancreas and adrenal glands are normal. No patholo gic lymphadenopathy in the abdomen or pelvis. 3 mm nonobstructing calculus is present in the mid aspect of the left kidney. No hydronephrosis of ei ther kidney. No bowel obstruction, free air, free fluid or abscess. Normal appendix noted. No significant bony abnormality. IMPRESSION: Gallbladder distension with small stones present. Nonobstructing 3 mm left renal calculus.
[2019-01-20 11:33] LABS: Albumin 3.7 g/dL (3.4-5.0); Bilirubin Direct 0.1 mg/dL (0-0.2); Bilirubin Total 0.5 mg/dL (0.2-1.0); Potassium 4.5 mmol/L (3.5-5.1); Protein, Total 7.6 g/dL (6.4-8.2)
--- NOTE | 2019-01-20 11:37 | ER ---
Nurse's Notes [facility] Name: Bernadine Dalal Age: 63 yrs Sex: Female : 1955 Arrival Date: 01/20/2019 Time: 09: Bed 19 Private MD: Diagnosis: Mid back pain Presentation: 01/20 09:23 Presenting complaint: Patient states: BACK PAIN x1 WK. Transition of care: patient was bp not received from another setting of care. Onset of symptoms is unknown. Risk Assessment: Do you want to hurt yourself or someone else? Patient reports no desire to harm self or others. Initial Sepsis Screen: Does the patient meet any 2 criteria? No. Patient's initial sepsis screen is negative. Does the patient have a suspected source of infection? No. Patient's initial sepsis screen is negative. Care prior to arrival: None. 09:23 Method Of Arrival: Ambulatory bp 09:23 Acuity: JODEE 3 bp Triage Assessment: 09:26 General: Appears in no apparent distress. uncomfortable, Behavior is cooperative, bp appropriate for age, anxious. Pain: Complains of pain in back. EENT: No deficits noted. Neuro: No deficits noted. Cardiovascular: No deficits noted. Respiratory: No deficits noted. GI: No signs and/or symptoms were reported involving the gastrointestinal system. : No signs and/or symptoms were reported regarding the genitourinary system. Derm: No deficits noted. Musculoskeletal: Circulation, motion, and sensation intact. Historical: - Allergies: 09:26 PENICILLINS; bp 09:26 Vancomycin; bp - Home Meds: 09:26 fentanyl patch [Active]; Topamax Oral [Active]; bp - PMHx: 09:26 fall/L hip fx, L hip infected after FX; Migraines; prolapsed uterus; SVT; UTI; Chronic bp pain; - PSHx: 09:26 CARDIAC ABLATION; Hysterectomy; bp - Immunization history:: Adult Immunizations up to date. - Social history:: Smoking status: Patient/guardian denies using tobacco. - Ebola Screening: : No symptoms or risks identified at this time. Screenin:16 Abuse screen: Denies threats or abuse. Denies injuries from another. Nutritional bp screening: No deficits noted. Tuberculosis screening: No symptoms or risk factors identified. Fall Risk None identified. Assessment: 09:29 General: SEE TRIAGE NOTE. Neuro: No deficits noted. bp 10:15 Reassessment: PT RETURNED FROM CT, RESULTS PENDING. bp 12:09 Reassessment: PT D/C HOME AMBULATORY WITH FAMILY, DX WITH BACK PAIN. Neuro: Level of bp Consciousness is awake, alert, obeys commands, Oriented to person, place, time, situation, Appropriate for age. Vital Signs: 09:26 BP 172 / 83; Pulse 71; Resp 16; Temp 98; Pulse Ox 100% ; Weight 84.37 kg; Height 5 ft. bp 8 in. (172.72 cm); 10:15 BP 153 / 73; Pulse 53; Resp 16; Pulse Ox 97% ; bp 12:10 BP 146 / 88; Pulse 54; Resp 16; Temp 98; Pulse Ox 100% ; bp 09:26 Body Mass Index 28.28 (84.37 kg, 172.72 cm) bp ED Course: 09:11 Patient arrived in ED. rg4 09:15 Dylan Lipscomb, RN is Primary Nurse. bp 09:16 Patient has correct armband on for positive identification. Bed in low position. Call bp light in reach. Side rails up X2. 09:24 Triage completed. bp 09:24 Urine collected: clean catch specimen, clear. ms 09:26 Arm band placed on. bp 09:37 Geovanna Roy FNP-C is [facility]. kb 09:37 Jevon Hernandez MD is Attending Physician. kb 09:[address] via wheelchair. sw 10:09 CT Stone Protocol In Process Unspecified. EDMS 10:15 Inserted saline lock: 22 gauge in right forearm, using aseptic technique. Blood bp collected. 12:10 No provider procedures requiring assistance completed. IV discontinued, intact, bp bleeding controlled, No redness/swelling at site. Pressure dressing applied. Administered Medications: 10:15 Drug: morphine 4 mg Route: IVP; Site: right forearm; bp 10:45 Follow up: Response: Pain is decreased bp 10:15 Drug: Zofran 4 mg Route: IVP; Site: right forearm; bp 10:45 Follow up: Response: Nausea is decreased bp 11:45 Drug: TORadol - Ketorolac 15 mg Route: IVP; Site: right forearm; bp 12:09 Follow up: Response: Pain is decreased bp Outcome: 11:36 Discharge ordered by . kb 12:10 Discharged to home ambulatory, with family. bp 12:10 Condition: stable 12:10 Discharge instructions given to patient, Instructed on discharge instructions, follow up and referral plans. medication usage, Demonstrated understanding of instructions, follow-up care, medications, Prescriptions given X 2. 12:11 Patient left the ED. bp Signatures: Dispatcher [employer] EDMS Geovanna Roy, BANDING MACHINE OPERATOR-C BANDING MACHINE OPERATOR-CkAishwarya Smalls ms Jose, Cherelle Galvez rg4 Dylan Lipscomb, RN RN bp
--- NOTE | 2019-01-20 11:38 | EDPHYS ---
Physician Documentation [facility] Name: Bernadine Dalal Age: 63 yrs Sex: Female : 1955 Arrival Date: 01/20/2019 Time: 09: Bed 19 Private MD: ED Physician Jevon Hernandez HPI: 01/20 11:22 This 63 yrs old Female presents to ER via Ambulatory with complaints of Back kb Pain. 11:22 The patient presents with pain that is acute, with no known mechanism of injury. The kb symptoms are located in the mid back area. Onset: The symptoms/episode began/occurred 1 week(s) ago. The pain does not radiate. Associated signs and symptoms: The patient has no apparent associated signs or symptoms. The problem was sustained from unknown cause. Modifying factors: The patient symptoms are alleviated by nothing, the patient symptoms are aggravated by any movement. Severity of symptoms: At their worst the symptoms were moderate, in the emergency department the symptoms are unchanged. The patient has not experienced similar symptoms in the past. The patient has not recently seen a physician. Historical: - Allergies: 09: PENICILLINS; bp 09: Vancomycin; bp - Home Meds: : fentanyl patch [Active]; Topamax Oral [Active]; bp - PMHx: : fall/L hip fx, L hip infected after FX; Migraines; prolapsed uterus; SVT; UTI; Chronic bp pain; - PSHx: 09: CARDIAC ABLATION; Hysterectomy; bp - Immunization history:: Adult Immunizations up to date. - Social history:: Smoking status: Patient/guardian denies using tobacco. - Ebola Screening: : No symptoms or risks identified at this time. ROS: 11:22 Constitutional: Negative for fever, chills, and weight loss, Cardiovascular: Negative kb for chest pain, palpitations, and edema, Respiratory: Negative for shortness of breath, cough, wheezing, and pleuritic chest pain, Abdomen/GI: Negative for abdominal pain, nausea, vomiting, diarrhea, and constipation, : Negative for injury, bleeding, discharge, and swelling, MS/Extremity: Negative for injury and deformity, Skin: Negative for injury, rash, and discoloration, Neuro: Negative for headache, weakness, numbness, tingling, and seizure. 11:22 Back: Positive for pain at rest, pain with movement. Exam: 11:22 Constitutional: This is a well developed, well nourished patient who is awake, alert, kb and in no acute distress. Head/Face: Normocephalic, atraumatic. ENT: Nares patent. No nasal discharge, no septal abnormalities noted. Tympanic membranes are normal and external auditory canals are clear. Oropharynx with no redness, swelling, or masses, exudates, or evidence of obstruction, uvula midline. Mucous membranes moist. Neck: Trachea midline, no thyromegaly or masses palpated, and no cervical lymphadenopathy. Supple, full range of motion without nuchal rigidity, or vertebral point tenderness. No Meningismus. Chest/axilla: Normal chest wall appearance and motion. Nontender with no deformity. No lesions are appreciated. Cardiovascular: Regular rate and rhythm with a normal S1 and S2. No gallops, murmurs, or rubs. Normal PMI, no JVD. No pulse deficits. Respiratory: Lungs have equal breath sounds bilaterally, clear to auscultation and percussion. No rales, rhonchi or wheezes noted. No increased work of breathing, no retractions or nasal flaring. Abdomen/GI: Soft, non-tender, with normal bowel sounds. No distension or tympany. No guarding or rebound. No evidence of tenderness throughout. Skin: Warm, dry with normal turgor. Normal color with no rashes, no lesions, and no evidence of cellulitis. MS/ Extremity: Pulses equal, no cyanosis. Neurovascular intact. Full, normal range of motion. Neuro: Awake and alert, GCS 15, oriented to person, place, time, and situation. Cranial nerves II-XII grossly intact. Motor strength 5/5 in all extremities. Sensory grossly intact. Cerebellar exam normal. Normal gait. 11:22 Back: pain, that is moderate, of the left mid back and right mid back, ROM is painful, with flexion, with extension, normal spinal alignment noted. Vital Signs: 09:26 BP 172 / 83; Pulse 71; Resp 16; Temp 98; Pulse Ox 100% ; Weight 84.37 kg; Height 5 ft. bp 8 in. (172.72 cm); 10:15 BP 153 / 73; Pulse 53; Resp 16; Pulse Ox 97% ; bp 12:10 BP 146 / 88; Pulse 54; Resp 16; Temp 98; Pulse Ox 100% ; bp 09:26 Body Mass Index 28.28 (84.37 kg, 172.72 cm) bp MDM: 09:37 Patient medically screened. kb 11:23 Data reviewed: vital signs, nurses notes. Data interpreted: Pulse oximetry: on room air kb is 97 %. Interpretation: normal. ED course: Discussed CT findings with pt. Pt denies abd pain, fever, n/v/d, urinary symptoms. . 11:36 Counseling: I had a detailed discussion with the patient and/or guardian regarding: the kb historical points, exam findings, and any diagnostic results supporting the discharge/admit diagnosis, lab results, radiology results, the need for outpatient follow up, a family practitioner, to return to the emergency department if symptoms worsen or persist or if there are any questions or concerns that arise at home. 01/20 09:27 Order name: Urine Dipstick--Ancillary (enter results); Complete Time: 10:04 bd 01/20 09:46 Order name: Basic Metabolic Panel; Complete Time: 11:35 kb 01/20 09:46 Order name: CT Stone Protocol; Complete Time: 10:40 kb 01/20 10:48 Order name: Hepatic Function; Complete Time: 11:35 bp 01/20 10:48 Order name: Lipase; Complete Time: 11:28 bp 01/20 09:46 Order name: IV Start; Complete Time: 10:06 kb 01/20 10:41 Order name: Labs - recollect needed; Complete Time: 10:45 bd Administered Medications: 10:15 Drug: morphine 4 mg Route: IVP; Site: right forearm; bp 10:45 Follow up: Response: Pain is decreased bp 10:15 Drug: Zofran 4 mg Route: IVP; Site: right forearm; bp 10:45 Follow up: Response: Nausea is decreased bp 11:45 Drug: TORadol - Ketorolac 15 mg Route: IVP; Site: right forearm; bp 12:09 Follow up: Response: Pain is decreased bp Disposition: 15:57 Co-signature as Attending Physician, Jevon Hernandez MD. rn Disposition: 01/20/19 11:36 Discharged to Home. Impression: Mid back pain. - Condition is Stable. - Discharge Instructions: Back Pain, Adult, [id number]. - Prescriptions for Cyclobenzaprine 10 mg Oral Tablet - take 1 tablet by ORAL route every 8 hours As needed; 21 tablet. Diclofenac Sodium 75 mg Oral Tablet, Delayed Release (E.C.) - take 1 tablet by ORAL route 2 times per day As needed; 30 tablet. - Medication Reconciliation Form, Thank You Letter, Antibiotic Education, Prescription Opioid Use form. - Follow up: Emergency Department; When: As needed; Reason: Worsening of condition. Follow up: Private Physician; When: 2 - 3 days; Reason: Recheck today's complaints, Continuance of care, Re-evaluation by your physician. Signatures: Dispatcher [employer] EDMS Geovanna Roy, DIVISION COMMANDER-C DIVISION COMMANDER-Ckb Sana Chavez Roman, MD MD rn Dylan Lipscomb RN RN bp Corrections: (The following items were deleted from the chart) 11:23 11:22 Back: pain, that is moderate, of the left mid back and right mid back, ROM is kb painful, normal spinal alignment noted, kb 12:11 11:36 01/20/2019 11:36 Discharged to Home. Impression: Mid back pain. Condition is bp Stable. Forms are Medication Reconciliation Form, Thank You Letter, Antibiotic Education, Prescription Opioid Use. Follow up: Emergency Department; When: As needed; Reason: Worsening of condition. Follow up: Private Physician; When: 2 - 3 days; Reason: Recheck today's complaints, Continuance of care, Re-evaluation by your physician. kb
[2019-01-20] MEDS ORDERED: KETOROLAC 30 MG/ML INJ ONE (12:01)
[2019-01-20 12:35] VITALS: TEMP 98
[2019-01-20 12:38] VITALS: BP 146/88; O2SAT 100
== END 2019-01-20 12:11 | disposition home or self-care (01) ==
LOC: ER 09:10
DX: M54.9 Dorsalgia, unspecified (principal); G43.909 Migraine, unspecified, not intractable, without status migrainosus; Z88.0 Allergy status to penicillin; Z88.3 Allergy status to other anti-infective agents
CPT/HCPCS: 80048; 36415; 80076; 81003; 83690; 76377; 74176; 96375; 96374; 99284; J2405

== ENCOUNTER 2021-01-01 15:44 | Emergency (ER) | payer OTHER ==
[2021-01-01] MEDS ORDERED: HYDROCODONE/APAP 10/325 TAB ONE (16:27)
--- NOTE | 2021-01-01 17:42 | RAD REPORT ---
EXAM DESCRIPTION: RAD - Femur Left - 01/01/2021 5:05 pm CLINICAL HISTORY: PAIN COMPARISON: Femur Left dated 08/07/2010 FINDINGS: Status post left total hip arthroplasty. Lucency along the proximal femoral diaphyseal por tion of the arthroplasty could represent a periprosthetic fracture. No dislocation. IMPRESSION: Lucency through the proximal femoral diaphysis along the stem of the arthroplasty. This could represent a periprosthetic fracture. CT could confirm.
--- NOTE | 2021-01-01 18:55 | RAD REPORT ---
EXAM DESCRIPTION: CT - Pelvis Wo Cont - 01/01/2021 6:08 pm CLINICAL HISTORY: hip pain COMPARISON: Femur Right dated 12/22/2020; Hip Right 2 View dated 12/22/2020; Coccyx dated 12/22/2020 FINDINGS: Right sacral insufficiency fracture is present. The left hip arthroplasty is intact. Note that the distal stem is not included in the field of view. The area in question of possible fracture on the radiograph has a chronic deformity but no acute fracture is seen. No dislocation. IMPRESSION: Intact left hip arthroplasty. No periprosthetic fracture identified at the suspected sit e on the radiograph. Right sacral fracture which may be an acute sacral insufficiency fracture.
--- NOTE | 2021-01-01 19:15 | EDPHYS ---
Physician Documentation [facility] Name: Bernadine Dalal Age: 65 yrs Sex: Female : 1955 Arrival Date: 01/01/2021 Time: 15:46 Bed 5 Private MD: ED Physician Elba Ozuna HPI: 01/01 17:34 This 65 yrs old Female presents to ER via Ambulatory with complaints of Hip kb Pain. 17:34 The patient or guardian reports pain. that occurred at home, sustained from unknown kb reason, There is no obvious deformity, The patient is able to ambulate with assistance. The patient is able to bear partial body weight. The patient's discomfort radiates to the left quadriceps. The complaints affect the left hip. Onset: The symptoms/episode began/occurred 1 week(s) ago. Modifying factors: The symptoms are alleviated by nothing, the symptoms are aggravated by nothing. Associated signs and symptoms: Loss of consciousness: the patient experienced no loss of consciousness, Pertinent positives: None. Severity of symptoms: At their worst the symptoms were moderate, in the emergency department the symptoms are unchanged. The patient has not experienced similar symptoms in the past. The patient has not recently seen a physician. Pt reports left hip pain for 1 week. Denies injury or trauma. . Historical: - Allergies: 15:53 PENICILLINS; aa5 15:53 Vancomycin; aa5 - PMHx: 15:53 Chronic pain; fall/L hip fx, L hip infected after FX; Migraines; prolapsed uterus; SVT; aa5 UTI; - PSHx: 15:53 Left hip replacement; aa5 - Immunization history:: Adult Immunizations up to date, Client reports receiving the 2nd dose of the Covid vaccine. - Social history:: Smoking status: Patient denies any tobacco usage or history of. ROS: 17:34 Constitutional: Negative for fever, chills, and weight loss. kb 17:34 MS/extremity: Positive for pain, of the left hip. 17:34 All other systems are negative. Exam: 17:34 Constitutional: This is a well developed, well nourished patient who is awake, alert, kb and in no acute distress. Head/Face: Normocephalic, atraumatic. ENT: Moist Mucous membranes Respiratory: Respirations even and unlabored. No increased work of breathing, no retractions or nasal flaring. Skin: Warm, dry with normal turgor. Normal color. Neuro: Awake and alert, GCS 15, oriented to person, place, time, and situation. Moves all extremities. Normal gait. Psych: Awake, alert, with orientation to person, place and time. Behavior, mood, and affect are within normal limits. 17:34 Musculoskeletal/extremity: Extremities: grossly normal except: noted in the left hip: pain, tenderness, ROM: intact in all extremities, Circulation is intact in all extremities. Sensation intact. Weight bearing: can bear weight with assistance only, uses cane. Vital Signs: 15:52 BP 174 / 75; Pulse 82; Resp 18 S; Temp 98.2(O); Pulse Ox 100% on R/A; Weight 79.83 kg; aa5 Height 5 ft. 8 in. (172.72 cm) (R); 15:52 Body Mass Index 26.76 (79.83 kg, 172.72 cm) aa5 MDM: 15:52 Patient medically screened. kb 16:34 Data reviewed: vital signs, nurses notes. Data interpreted: Pulse oximetry: on room air kb is 100 %. Interpretation: normal. 19:13 Counseling: I had a detailed discussion with the patient and/or guardian regarding: the kb historical points, exam findings, and any diagnostic results supporting the discharge/admit diagnosis, radiology results, the need for outpatient follow up, a orthopedic surgeon, to return to the emergency department if symptoms worsen or persist or if there are any questions or concerns that arise at home. 19:14 Physician consultation: Justice Sherman MD was called at 19:14, regarding consult, patient's condition, recommends outpatient follow up. 01/01 15:54 Order name: Femur Left XRAY; Complete Time: 17:43 kb 01/01 17:48 Order name: Pelvis Wo Cont; Complete Time: 19:03 EDMS Administered Medications: 16:07 Drug: [place] (HYDROcodone-acetaminophen) 10 mg-325 mg 1 tabs Route: PO; ll1 Disposition Summary: 01/01/21 19:13 Discharge Ordered Location: Home kb Condition: Stable kb Diagnosis - Pain in left hip kb - Right Sacral fracture kb Followup: kb - With: Emergency Department - When: As needed - Reason: Worsening of condition Followup: kb - With: Private Physician - When: 2 - 3 days - Reason: Recheck today's complaints, Continuance of care, Re-evaluation by your physician Discharge Instructions: - Discharge Summary Sheet kb - Musculoskeletal Pain kb - Hip Pain kb Forms: - Medication Reconciliation Form kb - Thank You Letter kb - Antibiotic Education kb - Prescription Opioid Use kb Prescriptions: - Cyclobenzaprine 10 mg Oral Tablet - take 1 tablet by ORAL route every 8 hours As needed; 21 tablet; Refills: 0, kb Product Selection Permitted - Diclofenac Sodium 75 mg Oral tablet,delayed release (DR/EC) - take 1 tablet by ORAL route 2 times per day As needed; 30 tablet; Refills: 0, kb Product Selection Permitted Addendum: 01/10/2021 22:55 Co-signature as Attending Physician, Elba betancur a2 Signatures: Dispatcher [employer] EDGeovanna Lundberg, VEDA-C INTERNATIONAL ACCOUNT REPRESENTATIVE-Julia Cabrera RN RN aa5 Elba Ozuna MD MD ma2 Sobeida Stahl RN RN ll1 Corrections: (The following items were deleted from the chart) 01/01 15:57 15:55 Immunization history: Adult Immunizations up to date, ll1 aa5 17:48 17:46 CT LEFT HIP WO CONTRAST ordered. EDWI TERRANCE
--- NOTE | 2021-01-01 19:15 | ER ---
Nurse's Notes [facility] Name: Bernadine Dalal Age: 65 yrs Sex: Female : 1955 Arrival Date: 01/01/2021 Time: 15:46 Bed 5 Private MD: Diagnosis: Pain in left hip;Right Sacral fracture Presentation: 01/01 15:52 Chief complaint: Patient states: left hip radiating down left leg that began 1 week ago aa5 . Denies known injury. Coronavirus screen: At this time, the client does not indicate any symptoms associated with coronavirus-19. Ebola Screen: No symptoms or risks identified at this time. Initial Sepsis Screen: Does the patient meet any 2 criteria? No. Patient's initial sepsis screen is negative. Does the patient have a suspected source of infection? No. Patient's initial sepsis screen is negative. Risk Assessment: Do you want to hurt yourself or someone else? Patient reports no desire to harm self or others. Onset of symptoms was December 2020. 15:52 Method Of Arrival: Ambulatory aa5 15:52 Acuity: JODEE 4 aa5 Triage Assessment: 16:00 General: Appears uncomfortable, Behavior is calm, cooperative, appropriate for age. ll1 Pain: Complains of pain in L hip Quality of pain is described as aching, Aggravated by increased activity, weight bearing. Musculoskeletal: Circulation, motion, and sensation intact. Capillary refill < 3 seconds, Range of motion: intact in all extremities, Reports pain in L hip. Injury Description: no known new injuries. Historical: - Allergies: 15:53 PENICILLINS; aa5 15:53 Vancomycin; aa5 - PMHx: 15:53 Chronic pain; fall/L hip fx, L hip infected after FX; Migraines; prolapsed uterus; SVT; aa5 UTI; - PSHx: 15:53 Left hip replacement; aa5 - Immunization history:: Adult Immunizations up to date, Client reports receiving the 2nd dose of the Covid vaccine. - Social history:: Smoking status: Patient denies any tobacco usage or history of. Screenin:55 Abuse screen: Denies threats or abuse. Nutritional screening: No deficits noted. ll1 Tuberculosis screening: No symptoms or risk factors identified. 16:08 Fall Risk Ambulatory Aid- Crutches/Cane/Walker (15 pts). Gait- Impaired (20 pts.). ll1 Total Bourne Fall Scale indicates Low Risk Score (25-44 pts). Fall prevention measures have been instituted. Side Rails Up X 2 Frequent Obs/Assesments occuring Family Present and informed to notify staff if they need to leave bedside As available Patient and Family Educated on Fall Prevention Program and strategies. Assessment: 17:00 Reassessment: No changes from previously documented assessment. Patient and/or family ll1 updated on plan of care and expected duration. Pain level reassessed. Patient is alert, oriented x 3, equal unlabored respirations, skin warm/dry/pink. Gait steady with cane.. 17:59 Reassessment: No changes from previously documented assessment. Patient and/or family ll1 updated on plan of care and expected duration. Pain level reassessed. Patient is alert, oriented x 3, equal unlabored respirations, skin warm/dry/pink. 18:48 Reassessment: No changes from previously documented assessment. Patient and/or family ll1 updated on plan of care and expected duration. Pain level reassessed. Patient is alert, oriented x 3, equal unlabored respirations, skin warm/dry/pink. Vital Signs: 15:52 BP 174 / 75; Pulse 82; Resp 18 S; Temp 98.2(O); Pulse Ox 100% on R/A; Weight 79.83 kg; aa5 Height 5 ft. 8 in. (172.72 cm) (R); 15:52 Body Mass Index 26.76 (79.83 kg, 172.72 cm) aa5 ED Course: 15:46 Patient arrived in ED. ds1 15:52 Geovnana Roy FNP-C is PHCP. kb 15:52 Elba Ozuna MD is Attending Physician. kb 15:52 Arm band placed on. aa5 15:53 Triage completed. aa5 15:54 Sobeida Stahl, TAMMY is Primary Nurse. ll1 15:55 Patient placed in an exam room, on a stretcher. ll1 15:55 Patient has correct armband on for positive identification. Bed in low position. Call ll1 light in reach. Side rails up X 1. Cardiac monitoring not applicable on this patient. 17:05 Femur Left XRAY In Process Unspecified. EDMS 18:07 Pelvis Wo Cont In Process Unspecified. EDMS 19:21 No provider procedures requiring assistance completed. Patient did not have IV access ll1 during this emergency room visit. Administered Medications: 16:07 Drug: [place] (HYDROcodone-acetaminophen) 10 mg-325 mg 1 tabs Route: PO; ll1 Outcome: 19:13 Discharge ordered by . sofya 19:21 Discharged to home ambulatory. ll1 19:21 Condition: stable 19:21 Discharge instructions given to patient, Instructed on discharge instructions, follow up and referral plans. Demonstrated understanding of instructions, follow-up care, medications, Prescriptions given X 2. 19:22 Patient left the ED. ll1 Signatures: Dispatcher [employer] EDMS Geovanna Roy, AUTOMATION TECH-C AUTOMATION TECH-Meri Chen ds1 Julia Noyola, RN RN aa5 Sobeida Stahl, TAMMY RN ll1 Corrections: (The following items were deleted from the chart) 15:57 15:55 Immunization history: Adult Immunizations up to date, 1 aa5
[2021-01-01 19:26] VITALS: BP 174/75; TEMP 98.2; O2SAT 100
== END 2021-01-01 19:22 | disposition home or self-care (01) ==
LOC: ER 15:44
DX: M25.552 Pain in left hip (principal); S32.10XA Unspecified fracture of sacrum, initial encounter for closed fracture; X58.XXXA Exposure to other specified factors, initial encounter; Y93.9 Activity, unspecified; Y92.019 Unspecified place in single-family (private) house as the place of occurrence of the external cause; Z88.0 Allergy status to penicillin; Z88.3 Allergy status to other anti-infective agents
CPT/HCPCS: 72192; 99283

== ENCOUNTER 2021-05-22 14:16 | Inpatient (IN) | payer OTHER ==
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
[2021-05-22 14:53] LABS: Absolute Lymphocytes (CBC) 1.7 K/uL (0.7-4.9); Hematocrit 42.8 % (36.0-45.0); Lymphocytes % 17.8 % (15.3-44.8); RBC Red Blood Cell Count 4.54 M/uL (3.86-4.86)
[2021-05-22] MEDS ORDERED: NA CHLORIDE 0.9% 1,000 ML ONE (14:54)
[2021-05-22] MEDS ORDERED: ONDANSETRON 4 MG/2 ML VIAL ONE (14:54)
[2021-05-22] MEDS ORDERED: MORPHINE 4 MG/ML SYR ONE ×3 (14:54→17:40)
[2021-05-22 14:56] LABS: Protime INR 1.03
[2021-05-22 15:12] LABS: Albumin 3.6 g/dL (3.4-5.0); Bilirubin Direct 0.2 mg/dL (0-0.2); Bilirubin Total 0.6 mg/dL (0.2-1.0); Potassium 3.9 mmol/L (3.5-5.1); Protein, Total 8.1 g/dL (6.4-8.2); Troponin High Sensitivity 6.7 pg/mL (<58.9)
--- NOTE | 2021-05-22 15:35 | ER ---
Nurse's Notes [facility] Name: Bernadine Dalal Age: 65 yrs Sex: Female : 1955 Arrival Date: 05/22/2021 Time: 14:21 Bed 25 Private MD: Diagnosis: Fall on same level, unspecified;Pain in right hip;Fracture of unspecified part of neck of right femur;Unspecified kidney failure-insufficency Presentation: 05/22 14:21 Chief complaint: Patient states: "I was moving my couch and slipped and fell. I think ab2 my right hip is broken it feels like my other hip did when I broke it.". Coronavirus screen: Vaccine status: Patient reports receiving the 2nd dose of the covid vaccine. Client denies travel out of the [place] in the last 14 days. At this time, the client does not indicate any symptoms associated with coronavirus-19. Ebola Screen: Patient negative for fever greater than or equal to 101.5 degrees Fahrenheit, and additional compatible Ebola Virus Disease symptoms Patient denies exposure to infectious person. Patient denies travel to an Ebola-affected area in the 21 days before illness onset. No symptoms or risks identified at this time. Initial Sepsis Screen: Does the patient meet any 2 criteria? No. Patient's initial sepsis screen is negative. Does the patient have a suspected source of infection? No. Patient's initial sepsis screen is negative. Risk Assessment: Do you want to hurt yourself or someone else? Patient reports no desire to harm self or others. Onset of symptoms is unknown. 14:21 Method Of Arrival: EMS: [facility] ab2 14:21 Acuity: JODEE 3 ab2 Triage Assessment: 14:23 General: Appears in no apparent distress. uncomfortable, Behavior is calm, cooperative, ab2 appropriate for age. Pain: Complains of pain in right hip Pain does not radiate. Pain currently is 10 out of 10 on a pain scale. EENT: No deficits noted. No signs and/or symptoms were reported regarding the EENT system. Neuro: No deficits noted. Level of Consciousness is awake, alert, obeys commands, Oriented to person, place, time, situation, Appropriate for age Structures Engineer are equal bilaterally Speech is normal, Facial symmetry appears normal. Cardiovascular: No deficits noted. Denies chest pain, shortness of breath, Heart tones S1 S2 present Patient's skin is warm and dry. Respiratory: Airway is patent Respiratory effort is even, unlabored, Respiratory pattern is regular, symmetrical, Breath sounds are clear bilaterally. GI: No deficits noted. No signs and/or symptoms were reported involving the gastrointestinal system. Abdomen is round non-distended, Bowel sounds present X 4 quads. Abd is soft and non tender X 4 quads. : No deficits noted. No signs and/or symptoms were reported regarding the genitourinary system. Derm: No deficits noted. No signs and/or symptoms reported regarding the dermatologic system. Skin is intact, is healthy with good turgor, Skin is dry, Skin is pink, warm \\T\\ dry. Skin temperature is warm. Musculoskeletal: Reports pain in right leg. Injury Description: Puncture Pt was moving couch and slipped and fell onto hip. Historical: - Allergies: 14:23 PENICILLINS; ab2 14:23 Vancomycin; ab2 - Home Meds: 15:02 fentanyl patch [Active]; Topamax Oral [Active]; lr4 - PMHx: 14:23 Chronic pain; fall/L hip fx, L hip infected after FX; Migraines; prolapsed uterus; SVT; ab2 UTI; - PSHx: 14:23 Left hip replacement; ab2 - Immunization history:: Adult Immunizations up to date, Client reports receiving the 2nd dose of the Covid vaccine. - Social history:: Smoking status: Patient denies any tobacco usage or history of. - Family history:: not pertinent. Screenin:25 Abuse screen: Denies threats or abuse. Denies injuries from another. Nutritional ab2 screening: No deficits noted. Tuberculosis screening: No symptoms or risk factors identified. Fall Risk Fall in past 12 months (25 points). No secondary diagnosis (0 pts). No IV (0 pts). Ambulatory Aid- None/Bed Rest/Nurse Assist (0 pts). Gait- Normal/Bed Rest/Wheelchair (0 pts) Mental Status- Oriented to own ability (0 pts). Total Bourne Fall Scale indicates Low Risk Score (25-44 pts). Fall prevention measures have been instituted. Side Rails Up X 2 Placed close to Nursing Station Frequent Obs/Assesments occuring As available Patient and Family Educated on Fall Prevention Program and strategies. Assessment: 14:25 Reassessment: See triage assessment. ab2 Vital Signs: 14:21 BP 174 / 89; Pulse 97; Resp 24; Temp 97.5(O); Pulse Ox 100% on R/A; Weight 79.83 kg; ab2 Height 5 ft. 8 in. (172.72 cm); Pain 10/10; 17:42 BP 111 / 61; Pulse 71; Resp 20; Pulse Ox 98% on R/A; Pain 6/10; lr4 14:21 Body Mass Index 26.76 (79.83 kg, 172.72 cm) ab2 ED Course: 14:21 Patient arrived in ED. ab2 14:21 Arm band placed on Patient placed in an exam room, on a stretcher. ll1 14:22 Sae Miranda MD is Attending Physician. ruel 14:23 Triage completed. ab2 14:25 No provider procedures requiring assistance completed. ab2 14:26 Patient has correct armband on for positive identification. Bed in low position. Call ab2 light in reach. Side rails up X2. Adult w/ patient. 14:46 Dominique Littlejohn, TAMMY is Primary Nurse. lr4 14:47 Basic Metabolic Panel Sent. lr4 14:56 Femur Right XRAY Sent. lr4 14:56 Hip Right 2 View XRAY Sent. lr4 14:56 Pelvis XRAY Sent. lr4 15:34 Jim Wills is Hospitalizing Provider. ruel 15:40 Elba Louis MD is Hospitalizing Provider. ruel 15:44 XRAY Chest (1 view) Sent. lr4 15:53 XRAY Chest (1 view) In Process Unspecified. EDMS 15:53 Pelvis XRAY In Process Unspecified. EDMS 15:53 Hip Right 2 View XRAY In Process Unspecified. EDMS 15:53 Femur Right XRAY In Process Unspecified. EDMS 16:20 CT Pelvis wo Cont: att right hip, fracture In Process Unspecified. EDMS 17:43 Patient admitted, IV remains in place. lr4 18:10 Bates cath inserted, using sterile technique, 18 Fr., by id, balloon inflated, to lr4 gravity drainage. Administered Medications: 14:55 Drug: Zofran (Ondansetron) 4 mg Route: IVP; Site: left forearm; lr4 16:00 Follow up: Response: Nausea is decreased lr4 14:56 Drug: morphine 2 mg Route: IVP; Site: left forearm; lr4 15:01 Drug: NS 0.9% 1000 ml Route: IV; Rate: 125 ml/hr; Site: left forearm; lr4 15:44 Follow up: IV Status: Infusion continued lr4 15:01 Drug: morphine 2 mg Route: IVP; Site: left forearm; lr4 15:59 Follow up: Response: Pain is unchanged, physician notified lr4 15:59 Follow up: Response: Pain is unchanged, physician notified lr4 15:59 Drug: morphine 4 mg Route: IVP; Site: left forearm; lr4 16:00 Follow up: Response: Pain is decreased lr4 17:44 Follow up: Response: Pain is decreased lr4 17:41 Drug: morphine 4 mg Route: IVP; Site: left wrist; lr4 17:43 Follow up: Response: Pain is decreased lr4 Outcome: 15:35 Decision to Hospitalize by Provider. ruel 17:42 Condition: stable lr4 17:43 Instructed on the need for admit. lr4 18:11 Admitted to Med/surg accompanied by tech, room 213, Report called to Nishi lr4 18:33 Patient left the ED. lr4 Signatures: Dispatcher [employer] EDSae Rosario MD MD cha Lewis, Lynsay, RN RN ll1 Suraj Ricketts Lashaunda RN RN lr4
--- NOTE | 2021-05-22 15:36 | EDPHYS ---
Physician Documentation [facility] Name: Bernadine Dalal Age: 65 yrs Sex: Female : 1955 Arrival Date: 05/22/2021 Time: 14:21 Bed 25 Private MD: ED Physician Sae Miranda HPI: 05/22 15:30 This 65 yrs old Female presents to ER via EMS with complaints of FALL AND ruel LEFT HIP PAIN. 15:30 The patient or guardian reports decreased range of motion, deformity, pain. that ruel occurred at home, sustained from a fall, right leg is externally rotated, The patient is not able to ambulate. Patient is not able to bear weight. There is no radiation of the patient's discomfort. The complaints affect the right hip and right upper thigh. Onset: The symptoms/episode began/occurred just prior to arrival. Modifying factors: The symptoms are alleviated by remaining still, the symptoms are aggravated by any movement, flexion. Details of fall: The patient fell from an upright position, while standing. Associated injuries: The patient sustained right hip and right upper thigh, decreased range of motion, painful injury, swelling. Associated signs and symptoms: Loss of consciousness: the patient experienced no loss of consciousness, Pertinent positives: None. Severity of symptoms: At their worst the symptoms were moderate, in the emergency department the symptoms are unchanged. Historical: - Allergies: 14:23 PENICILLINS; ab2 14:23 Vancomycin; ab2 - Home Meds: 15:02 fentanyl patch [Active]; Topamax Oral [Active]; lr4 - PMHx: 14:23 Chronic pain; fall/L hip fx, L hip infected after FX; Migraines; prolapsed uterus; SVT; ab2 UTI; - PSHx: 14:23 Left hip replacement; ab2 - Immunization history:: Adult Immunizations up to date, Client reports receiving the 2nd dose of the Covid vaccine. - Social history:: Smoking status: Patient denies any tobacco usage or history of. - Family history:: not pertinent. ROS: 15:30 Constitutional: Negative for fever, chills, and weight loss, Eyes: Negative for injury, ruel pain, redness, and discharge, ENT: Negative for injury, pain, and discharge, Neck: Negative for injury, pain, and swelling, Cardiovascular: Negative for chest pain, palpitations, and edema, Respiratory: Negative for shortness of breath, cough, wheezing, and pleuritic chest pain, Abdomen/GI: Negative for abdominal pain, nausea, vomiting, diarrhea, and constipation, Back: Negative for injury and pain, : Negative for injury, bleeding, discharge, and swelling, Skin: Negative for injury, rash, and discoloration, Neuro: Negative for headache, weakness, numbness, tingling, and seizure, Psych: Negative for depression, anxiety, suicide ideation, homicidal ideation, and hallucinations, Allergy/Immunology: Negative for hives, rash, and allergies, Endocrine: Negative for neck swelling, polydipsia, polyuria, polyphagia, and marked weight changes, Hematologic/Lymphatic: Negative for swollen nodes, abnormal bleeding, and unusual bruising. 15:30 MS/extremity: Positive for decreased range of motion, pain, of the right hip and right upper thigh. Exam: 15:30 Constitutional: This is a well developed, well nourished patient who is awake, alert, ruel and in no acute distress. Head/Face: Normocephalic, atraumatic. Eyes: Pupils equal round and reactive to light, extra-ocular motions intact. Lids and lashes normal. Conjunctiva and sclera are non-icteric and not injected. Cornea within normal limits. Periorbital areas with no swelling, redness, or edema. ENT: Nares patent. No nasal discharge, no septal abnormalities noted. Tympanic membranes are normal and external auditory canals are clear. Oropharynx with no redness, swelling, or masses, exudates, or evidence of obstruction, uvula midline. Mucous membranes moist. Neck: Trachea midline, no thyromegaly or masses palpated, and no cervical lymphadenopathy. Supple, full range of motion without nuchal rigidity, or vertebral point tenderness. No Meningismus. Chest/axilla: Normal chest wall appearance and motion. Nontender with no deformity. No lesions are appreciated. Cardiovascular: Regular rate and rhythm with a normal S1 and S2. No gallops, murmurs, or rubs. Normal PMI, no JVD. No pulse deficits. Respiratory: Lungs have equal breath sounds bilaterally, clear to auscultation and percussion. No rales, rhonchi or wheezes noted. No increased work of breathing, no retractions or nasal flaring. Abdomen/GI: Soft, non-tender, with normal bowel sounds. No distension or tympany. No guarding or rebound. No evidence of tenderness throughout. Back: No spinal tenderness. No costovertebral tenderness. Full range of motion. Skin: Warm, dry with normal turgor. Normal color with no rashes, no lesions, and no evidence of cellulitis. Neuro: Awake and alert, GCS 15, oriented to person, place, time, and situation. Cranial nerves II-XII grossly intact. Motor strength 5/5 in all extremities. Sensory grossly intact. Cerebellar exam normal. Normal gait. Psych: Awake, alert, with orientation to person, place and time. Behavior, mood, and affect are within normal limits. 15:30 Musculoskeletal/extremity: Extremities: grossly normal except: noted in the right hip and right upper thigh: decreased ROM, laceration, ROM: limited active range of motion, limited passive range of motion, Circulation is intact in all extremities. Sensation intact. Compartment Syndrome exam of affected extremity: is normal. DVT Exam: negative Homans' sign noted on exam, no appreciated bluish discoloration, no erythema, no increased warmth, pain, swelling, tenderness. 15:41 ECG was reviewed by the Attending Physician. [facility] Vital Signs: 14:21 BP 174 / 89; Pulse 97; Resp 24; Temp 97.5(O); Pulse Ox 100% on R/A; Weight 79.83 kg; ab2 Height 5 ft. 8 in. (172.72 cm); Pain 10/10; 17:42 BP 111 / 61; Pulse 71; Resp 20; Pulse Ox 98% on R/A; Pain 6/10; lr4 14:21 Body Mass Index 26.76 (79.83 kg, 172.72 cm) ab2 MDM: 14:22 Patient medically screened. [facility] 15:38 Data reviewed: vital signs, nurses notes, lab test result(s), EKG, radiologic studies. [facility] 05/22 14:25 Order name: Basic Metabolic Panel [facility] 05/22 14:25 Order name: CBC with Diff; Complete Time: 15:42 [facility] 05/22 14:25 Order name: LFT's; Complete Time: 15:42 [facility] 05/22 14:25 Order name: Magnesium; Complete Time: 15:42 [facility] 05/22 14:25 Order name: NT PRO-BNP; Complete Time: 15:42 [facility] 05/22 14:25 Order name: PT-INR; Complete Time: 15:42 [facility] 05/22 14:25 Order name: Troponin HS; Complete Time: 15:42 [facility] 05/22 14:25 Order name: Urine Culture [facility] 05/22 14:25 Order name: SARS-COV-2 RT PCR (Document "Date of Onset" if Symptomatic) [facility] 05/22 14:26 Order name: Basic Metabolic Panel; Complete Time: 15:42 [facility] 05/22 15:44 Order name: Urine Dipstick-Ancillary; Complete Time: 16:00 EDMS 05/22 16:30 Order name: Comprehensive Metabolic Panel EDMS 05/22 16:31 Order name: CBC with Automated Diff EDMS 05/22 16:31 Order name: CBC with Automated Diff EDMS 05/22 14:25 Order name: XRAY Chest (1 view) [facility] 05/22 14:25 Order name: EKG; Complete Time: 14:26 [facility] 05/22 14:25 Order name: Pelvis XRAY [facility] 05/22 14:25 Order name: Hip Right 2 View XRAY [facility] 05/22 14:25 Order name: Femur Right XRAY [facility] 05/22 16:01 Order name: CT Pelvis wo Cont: att right hip, fracture [facility] 05/22 16:31 Order name: Comprehensive Metabolic Panel [facility] 05/22 16:31 Order name: Magnesium [facility] 05/22 16:31 Order name: Magnesium EDMS 05/22 16:31 Order name: Phosphorus EDMS 05/22 16:31 Order name: Phosphorus EDMS 05/22 14:25 Order name: Cardiac monitoring; Complete Time: 14:46 [facility] 05/22 14:25 Order name: EKG - Nurse/Tech; Complete Time: 14:31 [facility] 05/22 14:25 Order name: IV Saline Lock; Complete Time: 14:46 [facility] 05/22 14:25 Order name: Labs collected and sent; Complete Time: 14:46 [facility] 05/22 14:25 Order name: O2 Per Protocol; Complete Time: 14:31 [facility] 05/22 14:25 Order name: O2 Sat Monitoring; Complete Time: 14:31 [facility] 05/22 14:25 Order name: Urine Dipstick-Ancillary (obtain specimen); Complete Time: 15:44 [facility] 05/22 16:31 Order name: CONS Physician Consult [facility] 03/13 16:31 Order name: NPO EDMS EC:41 Rate is 71 beats/min. Rhythm is regular. QRS [place]alante is Normal. NV interval is normal. QRS ruel interval is normal. QT interval is normal. No Q waves. T waves are Normal. No ST changes noted. Clinical impression: NSR w/ Non-specific ST/T Changes and No evidence of ischemia. Administered Medications: 14:55 Drug: Zofran (Ondansetron) 4 mg Route: IVP; Site: left forearm; lr4 16:00 Follow up: Response: Nausea is decreased lr4 14:56 Drug: morphine 2 mg Route: IVP; Site: left forearm; lr4 15:01 Drug: NS 0.9% 1000 ml Route: IV; Rate: 125 ml/hr; Site: left forearm; lr4 15:44 Follow up: IV Status: Infusion continued lr4 15:01 Drug: morphine 2 mg Route: IVP; Site: left forearm; lr4 15:59 Follow up: Response: Pain is unchanged, physician notified lr4 15:59 Follow up: Response: Pain is unchanged, physician notified lr4 15:59 Drug: morphine 4 mg Route: IVP; Site: left forearm; lr4 16:00 Follow up: Response: Pain is decreased lr4 17:44 Follow up: Response: Pain is decreased lr4 17:41 Drug: morphine 4 mg Route: IVP; Site: left wrist; lr4 17:43 Follow up: Response: Pain is decreased lr4 Disposition Summary: 05/22/21 15:35 Hospitalization Ordered Hospitalization Status: Inpatient Admission ruel Location: Telemetry/MedSurg (Inpatient) ruel Condition: Stable ruel Problem: new ruel Symptoms: have improved ruel Bed/Room Type: Standard ruel Provider: Elba Louis(05/22/21 15:40) ruel Room Assignment: Counts include 234 beds at the [facility](05/22/21 17:38) Diagnosis - Fall on same level, unspecified ruel - Pain in right hip ruel - Fracture of unspecified part of neck of right femur ruel - Unspecified kidney failure - insufficency ruel Forms: - Medication Reconciliation Form ruel - SBAR form ruel Signatures: Dispatcher [employer] EDAZ Shanon Finch RN RN dw Anderson, Corey, MD MD cha Bleininger, Alexis [facility] Dominique Littlejohn RN RN lr4 Corrections: (The following items were deleted from the chart) 15:40 15:35 Jim Wills cha, cha 17:38 15:35 ruel elizabeth
[2021-05-22 15:44] LABS: Urine Blood Negative (Negative); Urine Glucose Negative (Negative); Urine Protein Negative (Negative)
--- NOTE | 2021-05-22 16:04 | RAD REPORT ---
EXAM DESCRIPTION: RAD - Hip Right 2 View - 05/22/2021 3:53 pm CLINICAL HISTORY: PAIN COMPARISON: Hip Right 2 View dated 12/22/2020; Pelvis dated 05/22/2021 FINDINGS: Right subcapital femoral neck fracture is suspected and which is only mildly displaced lef t hip arthroplasty. No pelvic fractures otherwise identified IMPRESSION: Right subcapital femoral neck fracture.
--- NOTE | 2021-05-22 16:04 | RAD REPORT ---
EXAM DESCRIPTION: RAD - Femur Right - 05/22/2021 3:53 pm CLINICAL HISTORY: PAIN COMPARISON: Femur Right dated 12/22/2020 FINDINGS: No acute fracture. No malalignment. Mild lateral compartment narrowing and spurring. IMPRESSION: No acute osseous abnormality involving the right knee.
--- NOTE | 2021-05-22 16:05 | RAD REPORT ---
EXAM DESCRIPTION: RAD - Pelvis - 05/22/2021 3:53 pm CLINICAL HISTORY: PAIN COMPARISON: Pelvis Wo Cont dated 01/01/2021 FINDINGS: Right subcapital femoral neck fracture which is only mildly displaced. Left hip arthroplas ty is intact. No pelvic fracture is seen. IMPRESSION: Right subcapital femoral neck fracture.
--- NOTE | 2021-05-22 16:06 | RAD REPORT ---
EXAM DESCRIPTION: RAD - Chest Single View - 05/22/2021 3:53 pm CLINICAL HISTORY: COUGH COMPARISON: Chest Pa And Lat (2 Views) dated 03/06/2018; Chest Single View dated 02/14/2018; Chest Si ngle View dated 06/09/2016; Chest Single View dated 05/17/2016 FINDINGS: Lines: None. Lungs: No evidence of edema or pneumonia. Pleural: No significant pleural effusions or pneumothorax. Cardiac: The heart size is within normal limits. Bones: No acute fractures. Other: IMPRESSION: No acute cardiopulmonary disease.
[2021-05-22] MEDS ORDERED: ACETAMINOPHEN 500 MG TAB PO PRN (16:26)
[2021-05-22] MEDS ORDERED: ONDANSETRON 4 MG/2 ML VIAL IV PRN (16:26)
--- NOTE | 2021-05-22 16:31 | RAD REPORT ---
EXAM DESCRIPTION: CT - Pelvis Wo Cont - 05/22/2021 4:20 pm CLINICAL HISTORY: PAIN COMPARISON: <Comparisons> FINDINGS: Right subcapital femoral neck fracture. There is slight apex anterior angulation. Left hip arthroplasty is intact. The with right sacral insufficiency fracture appears healed. There is some l ucency in the left aspect of the sacrum. IMPRESSION: Right subcapital femoral neck fracture. Probably healed right sacral insufficiency fract ure. There is some sclerosis at the left sacrum. MRI could better assess for sacral insufficiency fra cture if indicated.
[2021-05-22] MEDS: NA CHLORIDE 0.9% 1,000 ML IV SCH (17:00)
[2021-05-22] MEDS: ENOXAPARIN 40 MG/0.4 ML SQ SCH (17:00)
[2021-05-22] MEDS: CEFAZOLIN 1 GM in NA CHLORIDE 0.9% 50 ML IVPB SCH ×2 (18:00→23:52)
[2021-05-22] MEDS: HYDROMORPHONE HCL 0.5 MG/0.5 ML INJ IV PRN ×2 (18:39→22:12)
[2021-05-22 20:04] VITALS: BMI 26.7
--- NOTE | 2021-05-23 00:56 | P.HP ---
Certification for Inpatient Patient admitted to: Inpatient With expected LOS: >2 Midnights Patient will require the following post-hospital care: None Practitioner: I am a practitioner with admitting privileges, knowledge of patient current condition, hospital course, and medical plan of care. Services: Services provided to patient in accordance with Admission requirements found in Title 42 Section 412.3 of the Code of Federal Regulations Patient History Date of Service: 05/22/21 Reason for admission: Right subcapital femoral neck fracture History of Present Illness: Patient is a 65-year-old female who was at home moving her couch when she lost her balance and fell backwards. She fell on her right hip and suffered a right subcapital femoral neck fracture. Patient was brought to the emergency room and hip x-rays revealed that patient had a subcapital femoral neck fracture. Patient was recently diagnosed with osteoporosis and was started on bisphosphonates. She broke her left hip years ago. She did suffer an infection afterwards and required a bone graft. Patient is currently having significant pain. She will be admitted for surgical treatment. Patient had extensive cardiac work-up in the past including cardiac catheterization a few years ago which was completely normal. She denies any cardiac symptoms and has not had any chest pain or shortness of breath. She has had SVTs in the past and she had an ablation for this. Start her on a low-dose beta-sebastian. Patient is low risk for cardiopulmonary complications in the per ioperative. Benefits of surgery outweigh the risk. Would advise proceeding with surgery at this time. Allergies Penicillins Allergy (Mild, Verified 02/22/18 10:40) Hives/Rash vancomycin Allergy (Unknown, Verified 02/22/18 10:40) Hives/Rash Home Medications: Fentanyl Patch [Duragesic Patch*] 1 patch TOP Q72H 02/14/18 Tizanidine [Zanaflex*] 4 mg PO Q4HP PRN 02/14/18 clonazePAM [Clonazepam] 1 mg PO BEDTIME 02/14/18 Atorvastatin Calcium [Lipitor*] 20 mg PO BEDTIME #30 tab 02/15/18 Metoprolol Tartrate 25 mg PO DAILY #30 tablet 02/15/18 Nitroglycerin [Nitrostat*] 0.4 mg SL UD PRN #10 tab 02/15/18 lisinopriL [Prinivil*] 5 mg PO DAILY #30 tab 02/15/18 - Past Medical/Surgical History Has patient received pneumonia vaccine in the past: No Diabetic: No -: SVT -: migraines -: prolapsed uterus -: UTI -: Cardiac Ablation -: 2010 left hip replacement 2012,2014 -: 2014 Hip replacement rplacement was replacement x 2 -: 03-19-2014 bladder surgery/Bladder Tack -: 2015 hysterectomy -: cardiac ablation - Family History Father Medical History: Cancer Notes: Prostate, Lung Cancer Mother Medical History: Heart disease - Social History Smoking Status: Former smoker Place of Residence: Home Review of Systems 10-point ROS is otherwise unremarkable Physical Examination - Vital Signs Temperature: 98.8 F Blood Pressure: 150/67 Pulse: 64 Respirations: 18 Pulse Ox (%): 95 - Physical Exam General: Alert, In no apparent distress, Oriented x3 HEENT: Atraumatic, PERRLA, Mucous membr. moist/pink, EOMI, Sclerae nonicteric Neck: Supple, 2+ carotid pulse no bruit, No LAD, Without JVD or thyroid abnormality Respiratory: Clear to auscultation bilaterally, Normal air movement Cardiovascular: Regular rate/rhythm, Normal S1 S2, No murmurs Gastrointestinal: Normal bowel sounds, Soft and benign, Non-distended, No tenderness Musculoskeletal: Tenderness Integumentary: No rashes Neurological: Normal speech, Normal tone, Sensation intact, Cranial nerves 3-12 intact, Normal affect, Abnormal gait, Abnormal strength Lymphatics: No axilla or inguinal lymphadenopathy - Studies Laboratory Data (last 24 hrs) 05/22/21 14:40: PT 11.3, INR 1.03 05/22/21 14:40: WBC 9.30, Hgb 14.4, Hct 42.8, Plt Count 209 05/22/21 14:40: Sodium 136, Potassium 3.9, BUN 15, Creatinine 1.74 H, Glucose 82, Magnesium 2.0, Total Bilirubin 0.6, AST 30, ALT 31, Alkaline Phosphatase 133 H Assessment & Plan - Problems (Diagnosis) (1) Subcapital fracture of neck of right femur Current Visit: Yes Status: Acute (2) Osteoporosis Current Visit: Yes Status: Acute (3) SVT (supraventricular tachycardia) Current Visit: Yes Status: Acute (4) HTN (hypertension) Onset Date: 05/17/16 Current Visit: No Status: Chronic Qualifiers: Hypertension type: essential hypertension Qualified Code(s): I10 - Essential (primary) hypertension - Plan Plan: 1. Orthopedic consultation 2. Pain control 3. Monitor on telemetry 4. Continue beta-sebastian therapy 5. DVT prophylaxis after surgery 6. Bisphosphonates to be restarted for osteoporosis 7. Os-Marcio as needed 8. Preoperative antibiotics 9. GI and DVT prophylaxis Discharge Plan: Home Plan to discharge in: Greater than 2 days - Advance Directives Does patient have a Living Will: No Does patient have a Durable POA for Healthcare: No - Code Status/Comfort Care Code Status Assessed: Yes Code Status: Full Code Critical Care: No Time Spent Managing PTS Care (In Minutes): 45
[2021-05-23 05:47] LABS: Absolute Lymphocytes (CBC) 1.2 K/uL (0.7-4.9); Hematocrit 38.8 % (36.0-45.0); Lymphocytes % 10.9 % (15.3-44.8); MPV 8.8 fL (7.6-11.3); RBC Red Blood Cell Count 4.18 M/uL (3.86-4.86)
[2021-05-23 06:04] LABS: Albumin 3.3 g/dL (3.4-5.0); Phosphorus 3.2 mg/dL (2.5-4.9); Potassium 4.1 mmol/L (3.5-5.1); Protein, Total 7.3 g/dL (6.4-8.2)
[2021-05-23] MEDS: NA CHLORIDE 0.9% 1,000 ML IV SCH ×2 (06:20→19:40)
[2021-05-23] MEDS: METOPROLOL TAR 25 MG TAB PO SCH ×2 (06:23→18:38)
[2021-05-23] MEDS: CEFAZOLIN 1 GM in NA CHLORIDE 0.9% 50 ML IVPB SCH (06:23)
[2021-05-23] MEDS: HYDROMORPHONE HCL 0.5 MG/0.5 ML INJ IV PRN ×4 (06:24→20:42)
[2021-05-23] MEDS: ENOXAPARIN 40 MG/0.4 ML SQ SCH (09:00)
[2021-05-23] MEDS ORDERED: TRANEXAMIC ACID 1,000 MG in NA CHLORIDE 0.9% 50 ML IV ONE (10:00)
[2021-05-23] MEDS ORDERED: LIDOCAINE 2% MPF 5 ML VIAL ONE (10:41)
[2021-05-23] MEDS ORDERED: dexAMETHasone 10 MG/ML VIAL ONE ×2 (10:41→12:35)
[2021-05-23] MEDS ORDERED: MIDAZOLAM HCL 2 MG/2 ML INJ ONE (10:41)
[2021-05-23] MEDS ORDERED: ROCURONIUM 50 MG/5 ML VIAL IV ONE (10:41)
[2021-05-23] MEDS ORDERED: propofoL 200 MG/20 ML VIAL IV ONE (10:41)
[2021-05-23] MEDS ORDERED: FENTANYL CITR 250 MCG/5 ML ONE (10:41)
[2021-05-23] MEDS ORDERED: ONDANSETRON 4 MG/2 ML VIAL ONE ×2 (10:42→15:09)
[2021-05-23] MEDS ORDERED: Ringers Lactate 1,000 ML IV ONE ×2 (10:55→13:01)
[2021-05-23] MEDS ORDERED: CEFAZOLIN SODIUM 1 GM/VIAL ONE (11:13)
[2021-05-23] MEDS ORDERED: CLINDAMYCIN INJ 600 MG in NA CHLORIDE 0.9% 50 ML IV ONE (11:30)
[2021-05-23] MEDS ORDERED: EPHEDRINE SULF 50 MG/ML VIAL ONE (11:56)
--- NOTE | 2021-05-23 12:28 | CON ---
Date of Consultation: 05/23/2021 Reason For Consultation: Right hip pain. History Of Present Illness: Ms. Dalal is a 65-year-old female who presented to the ER yesterday after sustaining a fall onto her right side with subsequent pain of the right hip and inability to be ar weight. The patient was moving furniture and slipped. The patient has a history of left hip frac ture, which underwent left hip hemiarthroplasty in 2010 and subsequent infection and revision arthrop lasty of the left hip. She denies any ongoing infection involved at this time. Review of Systems: As above, otherwise, negative. Past Medical History: Includes history of SVT and migraines. Past Surgical History: Includes left hip surgery x2, hysterectomy, cardiac ablation, bladder surgery . Medications: Per medication list. Allergies: TO PENICILLIN AND VANCOMYCIN. Social History: Former smoker and lives at home. Physical Examination: General: No apparent distress. HEENT: Normocephalic, atraumatic. Neck: Supple. Cardiovascular: Brisk cap refill to all digits. Chest: Nonlabored breathing. Abdomen: Nondistended. Psychiatric: Responds to exam. Musculoskeletal: Bilateral upper extremities, functional range of motion without pain. No gross defo rmities. No obvious dislocations. Left lower extremity functional range of motion, no pain, no dee s deformities, no obvious dislocations. Right lower extremity pain with range of motion to the right hip. Tenderness to palpation of the right hip. No tenderness over the tibia, foot, or knee. She r eports some paresthesias of the dorsal and plantar surface of her foot. Diagnostic Studies: X-rays of the right hip demonstrated a displaced right femoral neck fracture. Assessment/plan: Ms. Dalal is a 65-year-old female with a right hip fracture. I discussed with the patient at length her diagnosis as well as treatment plan. Given the displaced fracture pattern, I recommend right hip hemiarthroplasty. Risks associated with the procedure were discussed with the patient at length including pain, bleeding, infection, leg length discrepancy, and dislocation. She expressed understanding, would like to proceed with surgical treatment later today and Rag Boiler apy will be consulted postoperatively to work on mobilizations. CV/MODL Voice ID: [id number] Report ID: [id number]
[2021-05-23] MEDS ORDERED: BUPIVACAINE 0.25% PF 10 ML VIAL ONE (12:36)
[2021-05-23] MEDS ORDERED: BUPIVACAINE 0.5% PF 10 ML VIAL ONE (12:36)
[2021-05-23] MEDS ORDERED: KETOROLAC 30 MG/ML INJ ONE (14:18)
--- NOTE | 2021-05-23 14:20 | P.BOP ---
Preoperative diagnosis: right femoral neck fracture Postoperative diagnosis: same Primary procedure: right hip hemiarthroplasty [employer] Worker: NONE,NONE Estimated blood loss: 150 cc Specimen: right femoral head, right lateral hip tissue Findings: see dictation Anesthesia: General Complications: None Drain(s): Urinary catheter Implants: Biomet Rubi 11 Echo Stem, 50 shell, 28 x -6 mm head Fluids & blood products: per anesthesia record Transferred to: Recovery Room Condition: Good
[2021-05-23] MEDS ORDERED: DOCUSATE NA 100 MG CAP PO PRN (14:26)
[2021-05-23] MEDS ORDERED: TRAMADOL HCL 50 MG TAB PO PRN (14:26)
--- NOTE | 2021-05-23 14:44 | P.PN ---
Date of Service: 05/23/21 Subjective: reports severe R hip pain overnight now s/p repair. pain control improved denies shortness of breath, no nausea/vomiting ROS: 10 point ROS as noted above, otherwise negative Physical Exam Gen: NAD HEENT: normal conjunctiva, sclera anicteric CV: regular rate/rhythm Pulm: clear to auscultation bilaterally, nonlabored respirations on room air Abd: soft, nontender, nondistended Neuro: normal speech/affect, wiggles distal toes Problem List: Subcapital fracture of neck of R femur, now s/p repair Osteoporosis SVT HTN Ortho consulted, s/p repair today continue telemetry, beta sebastian will discuss with ortho regarding dvt prophylaxis post-op bisphosphonates to restart for osteoporosis PT consult post-op continue razo for now, remove once improved, will see how she does with PT tomorrow Code: full Dispo: home vs rehab, likely 2-3 days Time Spent Managing PTS Care (In Minutes): 35
[2021-05-23] MEDS ORDERED: HYDROMORPHONE HCL 1 MG/ML INJ ONE (15:09)
--- NOTE | 2021-05-23 15:22 | RAD REPORT ---
EXAM DESCRIPTION: RAD - Hip Right 2 View - 05/23/2021 3:11 pm CLINICAL HISTORY: Right hip surgery FINDINGS: Right hip arthroplasty Prosthesis is in good position. No fracture or dislocation seen.
--- NOTE | 2021-05-23 15:22 | RAD REPORT ---
EXAM DESCRIPTION: RAD - Pelvis - 05/23/2021 3:11 pm CLINICAL HISTORY: Right hip surgery FINDINGS: Right hip arthroplasty Prosthesis is in good position. No fracture or dislocation seen. Visualized left femoral prosthesis in good position
[2021-05-23 15:34] LABS: Hematocrit 38.6 % (36.0-45.0)
[2021-05-23] MEDS: CLINDAMYCIN INJ 600 MG in NA CHLORIDE 0.9% 50 ML IV SCH ×2 (18:38→23:56)
[2021-05-23] MEDS: HYDROCODONE/APAP 7.5/325 MG TAB PO PRN ×2 (18:38→23:55)
--- NOTE | 2021-05-23 21:55 | P.OP ---
Preoperative diagnosis: right femoral neck fracture Postoperative diagnosis: same Primary procedure: right hip hemiarthroplasty Anesthesia: general Estimated blood loss: 150 cc Specimen: right femoral head, right lateral hip tissue Findings: see dictation Operative Technique: Indication For Procedure: Bernadine is a 65-year-old female who presented to the ER after sustaining a fall on her right side with subsequent pain to his right hip and inability to bear weight. X-rays demonstrated a displaced right femoral neck fracture. Discussed with the patient risks and benefits associated with operative and nonoperative treatment. The patient expressed understanding and elected to proceed with operative treatment. Description Of Procedure: After informed consent was obtained, the patient was identified in the preoperative holding area. The right lower extremity was marked. The patient was then taken back to the operating room, transferred to the operating table in supine fashion, placed under general anesthesia. He was then placed in the left lateral decubitus position with his extremities well padded. The right lower extremity was then prepped and draped in usual sterile fashion. A time-out was initiated. The correct patient and procedure were confirmed and identified. The patient did receive preoperative prophylactic antibiotics. Surgery was then begun and approximately a 12 cm long curvilinear incision was placed centered over the greater trochanter consistent with a posterior approach to the hip. Dissection was then taken out of the tensor f ascia kate which was split and divided and retracted using a Charnley retractor. Dissection was then taken down to the short external rotators, which were elevated off the greater trochanter using Bovie electrocautery and tagged using a #5 Ethibond. A T-shaped capsulotomy was then performed. Hematoma was then evacuated using suction. The fracture was then identified. A corkscrew was then placed to remove the femoral head and a size 50 mm head was selected. Trial implant was then placed within the acetabulum. There was good overall fit. Next, attention was taken to the proximal femur. A canal finder was first introduced after using a roloie cutter followed by lateralizer. The canal was then reamed from size 7 mm reamer to a size 13 mm reamer with good fit of the 13 mm reamer at that point. The canal was then broached starting with a 7 mm broach to a 13 mm broach with good fit. Calcar planar was then used to freshen up the femoral neck cut and a -6 mm head and neck with 50 mm shell was then placed on the trial. The hip was reduced. There was good overall leg length and range of motion as well as stability noted. The trial implants were then removed. The proximal femur as well as acetabulum were then irrigated thoroughly with normal saline using pulse lavage. The canal was then prepped for placement of cement. A bone plug was then placed to a depth of 160 mm deep to the medial calcar. There was good overall with the plug. Next, cement was placed using a cement gun down the femoral canal and the stem was then placed and held into position until the cement hardened. Excess cement was removed using [place] elevators. -6 x 28 mm head and a 50 mm shell were then placed on the stem and the hip was reduced. The patient had overall good leg length, good stability of the hip with good range of motion. The wound was then irrigated thoroughly with normal saline using pulse lavage. The capsule was then approximated using a 5-0 Ethibond. The external rotators were then tacked back to the greater trochanter using a drill and suture passer. The wound again was then irrigated with normal saline. The tensor fascia kate was approximated using 0 Vicryl. Subcutaneous tissue was approximated using a 2-0 Vicryl. Skin was approximated using david. Sterile dressings were applied. The patient was placed in an abduction pillow, awakened, and transferred to PACU in stable condition. Complications: None Drain(s): Urinary catheter Implants: Biomet Rubi Echo 11 Stem, 50 mm shell, 28 x -6 mm head Fluids & blood products: per anesthesia record Transferred to: Recovery Room Condition: Good
[2021-05-24] MEDS: HYDROMORPHONE HCL 0.5 MG/0.5 ML INJ IV PRN ×6 (02:15→20:23)
[2021-05-24] MEDS: NA CHLORIDE 0.9% 1,000 ML IV SCH (03:08)
[2021-05-24] MEDS: HYDROCODONE/APAP 7.5/325 MG TAB PO PRN ×5 (03:58→22:24)
[2021-05-24] MEDS: METOPROLOL TAR 25 MG TAB PO SCH ×2 (05:19→17:28)
[2021-05-24] MEDS: CLINDAMYCIN INJ 600 MG in NA CHLORIDE 0.9% 50 ML IV SCH (05:19)
[2021-05-24 05:37] LABS: Absolute Lymphocytes (CBC) 0.9 K/uL (0.7-4.9); Hematocrit 34.2 % (36.0-45.0); Lymphocytes % 6.9 % (15.3-44.8); MPV 9.4 fL (7.6-11.3); RBC Red Blood Cell Count 3.65 M/uL (3.86-4.86)
[2021-05-24 05:52] LABS: Potassium 4.6 mmol/L (3.5-5.1)
[2021-05-24 06:15] LABS: Blood Morphology Comment NOT SEEN (NOT SEEN); Platelet Estimate ADEQ; White Blood Cell Scan OK (OK)
--- NOTE | 2021-05-24 06:17 | P.PN ---
Date of Service: 05/24/21 Subjective: feeling better, pain improving, taking PO & IV medication ambulated with PT -using walker states she did well with outpatient PT after her last hip replacement and thinking of doing the same this time no nausea/vomiting, +flatus razo remains ROS: 10 point ROS as noted above, otherwise negative Physical Exam Gen: sitting up in bedside chair, slightly uncomfortable appearing HEENT: normal conjunctiva, sclera anicteric CV: regular rate/rhythm Pulm: clear to auscultation bilaterally, non-labored respirations on room air Abd: soft, nontender, nondistended R hip - no palpable fluid collection/abscess Neuro: normal speech/affect, wiggles distal toes, sensation intact Problem List: Subcapital fracture of neck of R femur, now s/p repair on 05/23 Osteoporosis SVT HTN Ortho consulted, s/p repair on 05/23 continue telemetry, beta sebastian, no events will discuss with ortho regarding dvt prophylaxis post-op bisphosphonates to restart for osteoporosis PT consulted / rehab consult placed pain control per Ortho can likely remove dc later today, patient improving Code: full Dispo: home vs rehab, likely 1-2 days Time Spent Managing PTS Care (In Minutes): 35
[2021-05-24] MEDS: ENOXAPARIN 40 MG/0.4 ML SQ SCH (08:24)
--- NOTE | 2021-05-24 13:07 | P.PN ---
Subjective Date of Service: 05/24/21 Chief Complaint: s/p right hip armida Subjective: Ambulating, Working w/ PT reports some breakthrough pain Physical Examination - Vital Signs Temperature: 97.8 F Blood Pressure: 126/65 Pulse: 57 Respirations: 16 Pulse Ox (%): 100 - Physical Exam General: Alert, In no apparent distress, Oriented x3 Musculoskeletal: Other (RLE: dressing c/d/i; no significant swelling; +EHL/FHL/GSC/TA; gross sensation intact) Assessment And Plan - Plan Bernadine is a 65 yo female s/p right hip hemiarthroplasty POD#1 -PT to mobilize; WBAT RLE; posterior hip precautions -lovenox for DVT prophylaxis -add Robaxin to aid with pain
[2021-05-25] MEDS: HYDROMORPHONE HCL 0.5 MG/0.5 ML INJ IV PRN ×3 (01:03→08:08)
[2021-05-25] MEDS: HYDROCODONE/APAP 7.5/325 MG TAB PO PRN ×3 (02:58→20:19)
[2021-05-25 04:50] LABS: Absolute Lymphocytes (CBC) 2.5 K/uL (0.7-4.9); Hematocrit 35.5 % (36.0-45.0); Lymphocytes % 20.3 % (15.3-44.8); MPV 8.9 fL (7.6-11.3); RBC Red Blood Cell Count 3.77 M/uL (3.86-4.86)
[2021-05-25] MEDS: METOPROLOL TAR 25 MG TAB PO SCH ×2 (06:02→16:46)
--- NOTE | 2021-05-25 06:10 | P.PN ---
Date of Service: 05/25/21 Subjective: continues with R hip pain, worse yesterday slept better overnight feels like still catching up to pain requiring IV pain medication denies SOB, no chest pain, denies dysuria, no change in urinary habits ROS: 10 point ROS as noted above, otherwise negative Physical Exam Gen: sitting up in bedside chair, NAD HEENT: normal conjunctiva, sclera anicteric CV: regular rate/rhythm Pulm: clear to auscultation bilaterally, non-labored respirations on room air Abd: soft, nontender, nondistended R hip - no palpable fluid collection/abscess, dressing c/d/i Neuro: normal speech/affect, wiggles distal toes, sensation intact Problem List: Subcapital fracture of neck of R femur, now s/p repair on 05/23 Osteoporosis SVT HTN Ortho consulted, s/p repair on 05/23 continue telemetry, beta sebastian, no events xarelto 10mg [id number] on discharge, will send to pharmacy to ensure coverage/ affordability bisphosphonates to restart for osteoporosis PT consulted, patient improving main issue has been pain control, still requiring IV pain control per Ortho, added robaxin last night Code: full Dispo: home with outpatient PT, within 24hrs Time Spent Managing PTS Care (In Minutes): 35
[2021-05-25] MEDS: ENOXAPARIN 40 MG/0.4 ML SQ SCH (08:08)
[2021-05-25] MEDS: methocarbamoL 500 MG TAB PO PRN ×2 (09:05→16:17)
--- NOTE | 2021-05-25 11:47 | P.PN ---
Subjective Date of Service: 05/25/21 Chief Complaint: s/p right hip armida Subjective: Improving, Working w/ PT pain controlled Physical Examination - Vital Signs Temperature: 98.2 F Blood Pressure: 134/65 Pulse: 58 Respirations: 18 Pulse Ox (%): 98 - Physical Exam General: Alert, In no apparent distress Musculoskeletal: Other (RLE: dressing c/d/i; +EHL/FHL/GSC/TA; sensation grossly intact distally) Assessment And Plan - Plan Bernadine is a 65 yo female s/p right hip hemiarthroplasty POD#2 -H/H stable -PT to mobilize; WBAT RLE; posterior hip precautions -lovenox for DVT prophylaxis; -july d/c home with HHPT from ortho standpoint
[2021-05-25] MEDS ORDERED: clonazePAM 1 MG TAB PO PRN (16:15)
[2021-05-25 16:49] VITALS: O2SAT 98
[2021-05-25] MEDS ORDERED: ATORVASTATIN 20 MG TAB PO SCH (21:00)
[2021-05-26] MEDS: HYDROCODONE/APAP 7.5/325 MG TAB PO PRN ×3 (00:18→09:10)
[2021-05-26] MEDS: methocarbamoL 500 MG TAB PO PRN (01:33)
[2021-05-26 05:09] LABS: Hematocrit 33.8 % (36.0-45.0); MPV 9.1 fL (7.6-11.3); RBC Red Blood Cell Count 3.56 M/uL (3.86-4.86)
[2021-05-26 05:24] LABS: Potassium 4.3 mmol/L (3.5-5.1)
[2021-05-26] MEDS: METOPROLOL TAR 25 MG TAB PO SCH (05:42)
[2021-05-26 08:24] VITALS: BP 136/62; TEMP 97.8
[2021-05-26] MEDS: ENOXAPARIN 40 MG/0.4 ML SQ SCH (09:10)
--- NOTE | 2021-05-26 17:27 | P.DS ---
Admission Date: 05/22/21 Discharge Date: 05/26/21 Disposition: ROUTINE DISCHARGE Discharge Condition: GOOD Reason for Admission: s/p right hip hemiarthroplasty Consultations: Ortho - Dr. Sherman Procedures: Problem List: Subcapital fracture of neck of R femur, now s/p repair on 05/23 Osteoporosis HTN Brief History of Present Illness: Patient is a 65-year-old female who was at home moving her couch when she lost her balance and fell backwards. She fell on her right hip and suffered a right subcapital femoral neck fracture. Patient was brought to the emergency room and hip x-rays revealed that patient had a subcapital femoral neck fracture. Patient was recently diagnosed with osteoporosis and was started on bisphosphonates. She broke her left hip years ago. She did suffer an infection afterwards and required a bone graft. Patient is currently having significant pain. She will be admitted for surgical treatment. Patient had extensive cardiac work-up in the past including cardiac catheterization a few years ago which was completely normal. She denies any cardiac symptoms and has not had any chest pain or shortness of breath. She has had SVTs in the past and she had an ablation for this. Started her on a low- dose beta-sebastian Hospital Course: Patient underwent right hip repair. Post-operative course was uncomplicated. Pain slowly improved. She ambulated with physical therapy. She was deemed stable for discharge home with home health / PT Prescribed xarelto 10mg daily for 1 month. Follow up with Dr. Sherman Continue home pain regimen with fentanyl patch and tramadol. Contact your pain management doctor for further medication if needed. If unable to contact your pain management doctor, call Dr. Sherman's office. Patient's UA was negative, however for some reason this was sent for culture as well. She denied any urinary symptoms, was afebrile, without any leukocytosis Urine culture eventually grew gram-positive strep. Patient continued to remain asymptomatic for several days without antibiotics, Patient does not have a urinary tract infection, no antibiotics indicated on discharge. Vital Signs/Physical Exam: Temp Pulse Resp BP Pulse Ox 97.8 F 54 18 136/62 98 05/26/21 08:00 05/26/21 08:00 05/26/21 10:10 05/26/21 08:00 05/26/21 10:10 Physical Exam Gen: sitting up in bedside chair, NAD HEENT: normal conjunctiva, sclera anicteric CV: regular rate/rhythm Pulm: clear to auscultation bilaterally, non-labored respirations on room air Abd: soft, nontender, nondistended R hip - no palpable fluid collection/abscess, dressing c/d/i Neuro: normal speech/affect, wiggles distal toes, sensation intact Laboratory Data at Discharge: WBC 8.00 K/uL (4.3-10.9) D 05/26/21 04:42 Hgb 11.3 g/dL (12.0-15.0) L 05/26/21 04:42 Hct 33.8 % (36.0-45.0) L 05/26/21 04:42 Plt Count 198 K/uL (152-406) 05/26/21 04:42 PT 11.3 SECONDS (9.5-12.5) 05/22/21 14:40 INR 1.03 05/22/21 14:40 APTT 31.8 SECONDS (24.3-36.9) 05/22/21 21:09 Sodium 139 mmol/L (136-145) 05/26/21 04:42 Potassium 4.3 mmol/L (3.5-5.1) 05/26/21 04:42 BUN 13 mg/dL (7-18) 05/26/21 04:42 Creatinine 0.92 mg/dL (0.55-1.3) 05/26/21 04:42 Glucose 92 mg/dL (74-106) 05/26/21 04:42 Phosphorus 3.2 mg/dL (2.5-4.9) 05/23/21 05:20 Magnesium 2.0 mg/dL (1.8-2.4) 05/23/21 05:20 Total Bilirubin 1.0 mg/dL (0.2-1.0) 05/23/21 05:20 AST 22 U/L (15-37) 05/23/21 05:20 ALT 26 U/L (12-78) 05/23/21 05:20 Alkaline Phosphatase 117 U/L (45-117) 05/23/21 05:20 Home Medications: Fentanyl Patch [Duragesic Patch*] 1 patch TOP Q72H 02/14/18 Tizanidine [Zanaflex*] 4 mg PO Q4HP PRN 02/14/18 clonazePAM [Clonazepam] 1 mg PO BEDTIME 02/14/18 Atorvastatin Calcium [Lipitor*] 20 mg PO BEDTIME #30 tab 02/15/18 Metoprolol Tartrate 25 mg PO DAILY #30 tablet 02/15/18 Nitroglycerin [Nitrostat*] 0.4 mg SL UD PRN #10 tab 02/15/18 lisinopriL [Prinivil*] 5 mg PO DAILY #30 tab 02/15/18 Rivaroxaban [Xarelto] 10 mg PO DAILY 30 Days #30 tablet 05/25/21 New Medications: Rivaroxaban [Xarelto] 10 mg PO DAILY 30 Days #30 tablet Physician Discharge Instructions: Patient underwent right hip repair. Post-operative course was uncomplicated. Pain slowly improved. She ambulated with physical therapy. She was deemed stable for discharge home with home health / PT Prescribed xarelto 10mg daily for 1 month. Follow up with Dr. Sherman Continue home pain regimen with fentanyl patch and tramadol. Contact your pain management doctor for further medication if needed. If unable to contact your pain management doctor, call Dr. Sherman's office. Diet: Regular Followup: Justice Sherman MD [ACTIVE - CAN ADMIT] - (Call to schedule follow up appointment.) Time spent managing pt's care (in minutes): 45
== END 2021-05-26 11:15 | disposition home health service (06) | DRG 522 ==
LOC: ER 14:16 → ERHOLD 16:32 → 2ND 17:50
PROVIDERS: ADMIT Hospitalist; ATTEND Hospitalist
PROC: 0SRR019 Replacement of Right Hip Joint, Femoral Surface with Metal Synthetic Substitute, Cemented, Open Approach (ICD-10-PCS; principal; 2021-05-23 11:30)
DX: S72.011A Unspecified intracapsular fracture of right femur, initial encounter for closed fracture (principal); I47.1 Supraventricular tachycardia; W01.0XXA Fall on same level from slipping, tripping and stumbling without subsequent striking against object, initial encounter; Y92.008 Other place in unspecified non-institutional (private) residence as the place of occurrence of the external cause; I10 Essential (primary) hypertension; M81.0 Age-related osteoporosis without current pathological fracture; Z96.642 Presence of left artificial hip joint; Z20.822 Contact with and (suspected) exposure to COVID-19; Z88.0 Allergy status to penicillin
CPT/HCPCS: 36415; 51702; 71045; 72170; 72192; 80048; 80053; 80076; 81003; 83735; 83880; 84100; 84484; 85014; 85018; 85025; 85027; 85610; 85730; 87077; 87086; 87088; 87186; 88305; 88311; 93005; 97110; 97116; 97161; 97530; 99285; J0690; J1100; J1170; J1650; J2250; J2405; J2704; J3010; J7030; J7120; U0003

== ENCOUNTER 2022-07-31 17:47 | Emergency (ER) | payer OTHER ==
--- OUTSIDE RECORDS SUMMARY | 2022-07-31 17:57 | XMS REPORT | Continuity of Care Document ---
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 [place] 00 72 Medical (seventy-t Branch wo) hours. FENTanyl 50 Yes 1{patch Apply 1 Univers mcg/hr 7-20 } Patch to ity of patch 00:00: skin every [place] 00 72 Medical (seventy-t Branch wo) hours. FENTanyl 50 0 Yes 1{patch Apply 1 Univers mcg/hr 7-20 } Patch to ity of patch 00:00: skin every [place] 00 72 Medical (seventy-t Branch wo) hours. FENTanyl 50 0 Yes 1{patch Apply 1 Univers mcg/hr 7-20 } Patch to ity of patch 00:00: skin every [place] 00 72 Medical (seventy-t Branch wo) hours. FENTanyl 50 0 Yes 1{patch Apply 1 Univers mcg/hr 7-20 } Patch to ity of patch 00:00: skin every [place] 72 Medical (seventy-t Branch wo) hours. FENTanyl 50 2020-0 Yes 1{patch Apply 1 [facility] mcg/hr 7-20 } Patch to ity of patch 00:00: skin every [place] 72 Medical (seventy-t Branch wo) hours. FENTanyl 50 2020-0 Yes 1{patch Apply 1 Univers mcg/hr 7-20 } Patch to ity of patch 00:00: skin every [place] 72 Medical (seventy-t Branch wo) hours. methocarbam 0 Yes Univer s oL 500 mg 7-14 ity of tablet 00:00: [place] [facility] methocarbam 2020-0 Yes Univer s oL 500 mg 7-14 ity of tablet 00:00: [place] [facility] methocarbam 2020-0 Yes Univer s oL 500 mg 7-14 ity of tablet 00:00: [place] [facility] methocarbam 2020-0 Yes Univer s oL 500 mg 7-14 ity of tablet 00:00: [place] [facility] methocarbam 2020-0 Yes Univer s oL 500 mg 7-14 ity of tablet 00:00: [place] [facility] methocarbam 2020-0 Yes Univer s oL 500 mg 7-14 ity of tablet 00:00: [place] [facility] methocarbam 2020-0 Yes Univer s oL 500 mg 7-14 ity of tablet 00:00: [place] [facility] methocarbam 2020-0 Yes Univer s oL 500 mg 7-14 ity of tablet 00:00: [place] [facility] methocarbam 2020-0 Yes Univer s oL 500 mg 7-14 ity of tablet 00:00: [place] [facility] methocarbam 2020-0 Yes Univer s oL 500 mg 7-14 ity of tablet 00:00: [place] [facility] methocarbam 2020-0 Yes Univer s oL 500 mg 7-14 ity of tablet 00:00: [place] [facility] methocarbam 2020-0 Yes Univer s oL 500 mg 7-14 ity of tablet 00:00: [place] [facility] methocarbam 2020-0 Yes Univer s oL 500 mg 7-14 ity of tablet 00:00: [place] [facility] Branch methocarbam 2020-0 Yes Univer s oL 500 mg 7-14 ity of tablet 00:00: [place] [facility] methocarbam 2020-0 Yes Univer s oL 500 mg 7-14 ity of tablet 00:00: [place] [facility] Branch cephALEXin 2020-0 2- No [id number] 500mg Take 1 Univers (KEFLEX) 09-17 capsule by ity of 500 mg 00:00: 00:00 mouth 2 [place] capsule 00 :00 (two) Medical times [place] daily. cephALEXin 2020-0 2021- No [id number] 500mg Take 1 Univers (KEFLEX) 09-17 capsule by ity of 500 mg 00:00: 00:00 mouth 2 [place] capsule 00 :00 (two) Medical times [place] daily. topiramate 0 Yes Univers 25 mg 7-01 ity of tablet 00:00: [place] [facility] topiramate 2020-0 Yes Univers 25 mg 7-01 ity of tablet 00:00: [place] [facility] Branch topiramate 2020-0 Yes Univers 25 mg 7-01 ity of tablet 00:00: [place] [facility] topiramate 2020-0 Yes Univers 25 mg 7-01 ity of tablet 00:00: [place] [facility] Branch topiramate 2020-0 Yes Univers 25 mg 7-01 ity of tablet 00:00: [place] [facility] topiramate 2020-0 Yes Univers 25 mg 7-01 ity of tablet 00:00: [place] [facility] topiramate 2020-0 Yes Univers 25 mg 7-01 ity of tablet 00:00: [place] [facility] topiramate 2020-0 Yes Univers 25 mg 7-01 ity of tablet 00:00: [place] [facility] topiramate 1-0 Yes Univers 25 mg 7-01 ity of tablet 00:00: [place] [facility] topiramate 2020-0 Yes Univers 25 mg 7-01 ity of tablet 00:00: [place] [facility] topiramate 2020-0 Yes Univers 25 mg 7-01 ity of tablet 00:00: [place] [facility] topiramate 2020-0 Yes Univers 25 mg 7-01 ity of tablet 00:00: [place] [facility] topiramate 2020-0 Yes Univers 25 mg 7-01 ity of tablet 00:00: Medical Branch topiramate 2020-0 Yes Univers 25 mg 7-01 ity of tablet 00:00: Medical Branch topiramate 2020-0 Yes Univers 25 mg 7-01 ity of tablet 00:00: [place] [facility] cephALEXin 0 2021- No [id number] 500mg Take 1 Univers (KEFLEX) 07-12- capsule by ity of 500 mg 00:00: 00:00 mouth 2 [place] capsule 00 :00 (two) Medical times Branch daily. cephALEXin 2021- No [id number] 500mg Take 1 Univers (KEFLEX) 5- capsule by ity of 500 mg 00:00: 00:00 mouth 2 [place] capsule 00 :00 (two) Medical times Branch daily. cephALEXin 2021- No [id number] 500mg Take 1 Univers (KEFLEX) 06-04- capsule by ity of 500 mg 00:00: 00:00 mouth 2 [place] capsule 00 :00 (two) Medical times Branch daily. cephALEXin 2021- No [id number] 500mg Take 1 Univers (KEFLEX) 06-04-28 capsule by ity of 500 mg 00:00: 00:00 mouth 2 [place] capsule 00 :00 (two) Medical times Branch daily. Kenalog Kenalog No 40mg Common (Triamcinol (Triamcinol 3-08 S pirit one) one) 00:00: - [facility] 00 [facility] Bupivicaine Bupivicaine 2020-0 No 2.5mg [facility] [place] [facility] 00:00: - [facility] 00 [facility] Kenalog Kenalog 2020-0 No 40mg Common (Triamcinol (Triamcinol 3-08 S pirit one) one) 00:00: - [facility] 00 [facility] Bupivicaine Bupivicaine 2020-0 No 2.5mg Common [place] [facility] 00:00: - [facility] Kenalog Kenalog 2020-0 No 40mg Common (Triamcinol (Triamcinol 3-08 S pirit one) one) 00:00: - [facility] 00 [facility] Bupivicaine Bupivicaine 2020-0 No 2.5mg Common [place] [facility] 00:00: - [facility] 00 [facility] Kenalog Kenalog 2020-0 No 40mg Common (Triamcinol (Triamcinol 3-08 S pirit one) one) 00:00: - [facility] 00 [facility] Bupivicaine Bupivicaine 1-0 No 2.5mg Common [place] [facility] 00:00: - [facility] 00 [facility] Kenalog Kenalog 2020-0 No 40mg Common (Triamcinol (Triamcinol 3-08 S pirit one) one) 00:00: - [facility] 00 [facility] Bupivicaine Bupivicaine 1-0 No Common [place] 3[facility] 00:00: - [facility] 00 [facility] Kenalog Kenalog 2020-0 No 40mg Common (Triamcinol (Triamcinol 3-08 S pirit one) one) 00:00: - [facility] 00 [facility] Bupivicaine Bupivicaine 2020-0 No 2.5mg Common [place] [facility] 00:00: - [facility] 00 [facility] ibuprofen 2020-0 Yes [id number] 600mg Take 1 U nivers 600 mg 1-28 tablet by ity of tablet 00:00: mouth [place] 00 every 6 Medical (six) Branch hours as needed for Pain (scale 4-6). ibuprofen 2020-0 Yes [id number] 600mg Take 1 U nivers 600 mg 1-28 tablet by ity of tablet 00:00: mouth [place] 00 every 6 Medical (six) Branch hours as needed for Pain (scale 4-6). ibuprofen 2020-0 Yes [id number] 600mg Take 1 U nivers 600 mg 1-28 tablet by ity of tablet 00:00: mouth [place] 00 every 6 Medical (six) Branch hours as needed for Pain (scale 4-6). ibuprofen 2021-0 Yes [id number] 600mg Take 1 U nivers 600 mg 1-28 tablet by ity of tablet 00:00: mouth [place] 00 every 6 Medical (six) Branch hours as needed for Pain (scale 4-6). ibuprofen 2020-0 Yes [id number] 600mg Take 1 U nivers 600 mg 1-28 tablet by ity of tablet 00:00: mouth [place] 00 every 6 Medical (six) Branch hours as needed for Pain (scale 4-6). ibuprofen 1-0 Yes [id number] 600mg Take 1 U nivers 600 mg 1-28 tablet by ity of tablet 00:00: mouth [place] 00 every 6 Medical (six) Branch hours as needed for Pain (scale 4-6). ibuprofen 2020-0 Yes [id number] 600mg Take 1 U nivers 600 mg 1-28 tablet by ity of tablet 00:00: mouth [place] 00 every 6 Medical (six) Branch hours as needed for Pain (scale 4-6). ibuprofen 2020-0 Yes [id number] 600mg Take 1 U nivers 600 mg 1-28 tablet by ity of tablet 00:00: mouth [place] 00 every 6 Medical (six) Branch hours as needed for Pain (scale 4-6). ibuprofen 2020-0 Yes [id number] 600mg Take 1 U nivers 600 mg 1-28 tablet by ity of tablet 00:00: mouth [place] 00 every 6 Medical (six) Branch hours as needed for Pain (scale 4-6). ibuprofen 2020-0 Yes [id number] 600mg Take 1 U nivers 600 mg 1-28 tablet by ity of tablet 00:00: mouth [place] 00 every 6 Medical (six) Branch hours as needed for Pain (scale 4-6). ibuprofen 2020-0 Yes [id number] 600mg Take 1 U nivers 600 mg 1-28 tablet by ity of tablet 00:00: mouth [place] 00 every 6 Medical (six) Branch hours as needed for Pain (scale 4-6). ibuprofen 2020-0 Yes [id number] 600mg Take 1 U nivers 600 mg 1-28 tablet by ity of tablet 00:00: mouth [place] 00 every 6 Medical (six) Branch hours as needed for Pain (scale 4-6). ibuprofen 2021-0 Yes [id number] 600mg Take 1 U nivers 600 mg 1-28 tablet by ity of tablet 00:00: mouth [place] 00 every 6 Medical (six) Branch hours as needed for Pain (scale 4-6). ibuprofen 2021-0 Yes [id number] 600mg Take 1 U nivers 600 mg 1-28 tablet by ity of tablet 00:00: mouth [place] 00 every 6 Medical (six) Branch hours as needed for Pain (scale 4-6). ibuprofen 2020-0 Yes [id number] 600mg Take 1 U nivers 600 mg 1-28 tablet by ity of tablet 00:00: mouth [place] 00 every 6 Medical (six) Branch hours as needed for Pain (scale 4-6). Bupivicaine Bupivicaine 2019- No 2.5mg Common [place] [facility] 00:00: - [facility] Kenalog Kenalog 2019- No 40mg Common (Triamcinol (Triamcinol 2-30 S pirit one) one) 00:00: - [facility] Bupivicaine Bupivicaine 2019- No 2.5mg Common [place] [facility] Spirit 00:00: - [facility] Kenalog Kenalog 2019- No 40mg Common (Triamcinol (Triamcinol 2-30 S pirit one) one) 00:00: - [facility] Bupivicaine Bupivicaine 2019- No 2.5mg Common [place] [facility] Spirit 00:00: - [facility] Kenalog Kenalog 2019- No 40mg Common (Triamcinol (Triamcinol 2-30 S pirit one) one) 00:00: - [facility] Bupivicaine Bupivicaine 2019- No 2.5mg Common [place] 2[facility] Spirit 00:00: - [facility] Kenalog Kenalog 2019- No 40mg Common (Triamcinol (Triamcinol 2-30 S pirit one) one) 00:00: - [facility] Bupivicaine Bupivicaine 2019- No [place] [facility] 00:00: - [facility] Kenalog Kenalog 2019- No 40mg Common (Triamcinol (Triamcinol 2-30 S pirit one) one) 00:00: - [facility] Bupivicaine Bupivicaine 2019- No 2.5mg Common [place] 2[facility] Spirit 00:00: - [facility] Kenalog Kenalog 2020-1 No 40mg Common (Triamcinol (Triamcinol 2-30 S pirit one) one) 00:00: - [facility] 00 [facility] Nitrofurant 2020-0 Yes [id number] 100mg Take 1 Univers oin&Nit. 9-15 capsule by ity o f Macrocryst 00:00: mouth as [place] (MACROBID) 00 needed for Med ical 100 mg Other Branch capsule (after intecourse ). Nitrofurant 2020-0 Yes [id number] 100mg Take 1 Univers oin&Nit. 9-15 capsule by ity o f Macrocryst 00:00: mouth as [place] (MACROBID) 00 needed for Med ical 100 mg Other Branch capsule (after intecourse ). Nitrofurant 2019-0 Yes [id number] 100mg Take 1 Univers oin&Nit. 9-15 capsule by ity o f Macrocryst 00:00: mouth as [place] (MACROBID) 00 needed for Med ical 100 mg Other Branch capsule (after intecourse ). Nitrofurant 2019-0 Yes [id number] 100mg Take 1 Univers oin&Nit. 9-15 capsule by ity o f Macrocryst 00:00: mouth as [place] (MACROBID) 00 needed for Med ical 100 mg Other Branch capsule (after intecourse ). Nitrofurant 2019-0 Yes [id number] 100mg Take 1 Univers oin&Nit. 9-15 capsule by ity o f Macrocryst 00:00: mouth as [place] (MACROBID) 00 needed for Med ical 100 mg Other Branch capsule (after intecourse ). Nitrofurant 2020-0 Yes [id number] 100mg Take 1 Univers oin&Nit. 9-15 capsule by ity o f Macrocryst 00:00: mouth as [place] (MACROBID) 00 needed for Med ical 100 mg Other Branch capsule (after intecourse ). Nitrofurant 2020-0 Yes [id number] 100mg Take 1 Univers oin&Nit. 9-15 capsule by ity o f Macrocryst 00:00: mouth as [place] (MACROBID) 00 needed for Med ical 100 mg Other Branch capsule (after intecourse ). Nitrofurant 2020-0 Yes [id number] 100mg Take 1 Univers oin&Nit. 9-15 capsule by ity o f Macrocryst 00:00: mouth as [place] (MACROBID) 00 needed for Med ical 100 mg Other Branch capsule (after intecourse ). Nitrofurant 2020-0 Yes [id number] 100mg Take 1 Univers oin&Nit. 9-15 capsule by ity o f Macrocryst 00:00: mouth as [place] (MACROBID) 00 needed for Med ical 100 mg Other Branch capsule (after intecourse ). Nitrofurant 2020-0 Yes [id number] 100mg Take 1 Univers oin&Nit. 9-15 capsule by ity o f Macrocryst 00:00: mouth as [place] (MACROBID) 00 needed for Med ical 100 mg Other Branch capsule (after intecourse ). Nitrofurant 2020-0 Yes [id number] 100mg Take 1 Univers oin&Nit. 9-15 capsule by ity o f Macrocryst 00:00: mouth as [place] (MACROBID) 00 needed for Med ical 100 mg Other Branch capsule (after intecourse ). Nitrofurant 2020-0 Yes [id number] 100mg Take 1 Univers oin&Nit. 9-15 capsule by ity o f Macrocryst 00:00: mouth as [place] (MACROBID) 00 needed for Med ical 100 mg Other Branch capsule (after intecourse ). Nitrofurant 2020-0 Yes [id number] 100mg Take 1 Univers oin&Nit. 9-15 capsule by ity o f Macrocryst 00:00: mouth as [place] (MACROBID) 00 needed for Med ical 100 mg Other Branch capsule (after intecourse ). Nitrofurant 2020-0 Yes [id number] 100mg Take 1 Univers oin&Nit. 9-15 capsule by ity o f Macrocryst 00:00: mouth as [place] (MACROBID) 00 needed for Med ical 100 mg Other Branch capsule (after intecourse ). Nitrofurant 2020-0 Yes [id number] 100mg Take 1 Univers oin&Nit. 9-15 capsule by ity o f Macrocryst 00:00: mouth as [place] (MACROBID) 00 needed for Med ical 100 mg Other Branch capsule (after intecourse ). Bupivicaine Bupivicaine 2020-0 No 5mL Common [place] [facility] 00:00: - [facility] 00 [facility] Kenalog Kenalog 2020-0 No 40mg Common (Triamcinol (Triamcinol 8-03 S pirit one) one) 00:00: - [facility] 00 [facility] Bupivicaine Bupivicaine 2020-0 No 5mL Common [place] [facility] 00:00: - [facility] 00 [facility] Kenalog Kenalog 2020-0 No 40mg Common (Triamcinol (Triamcinol 8-03 S pirit one) one) 00:00: - [facility] 00 [facility] Bupivicaine Bupivicaine 2020-0 No 5mL Common [place] [facility] 00:00: - [facility] 00 [facility] Kenalog Kenalog 2020-0 No 40mg Common (Triamcinol (Triamcinol 8-03 S pirit one) one) 00:00: - [facility] 00 [facility] Bupivicaine Bupivicaine 2020-0 No 5mL Common [place] [facility] 00:00: - [facility] 00 [facility] Kenalog Kenalog 2020-0 No 40mg Common (Triamcinol (Triamcinol 8-03 S pirit one) one) 00:00: - [facility] 00 [facility] Bupivicaine Bupivicaine 2020-0 No 5mL Common [place] [facility] 00:00: - [facility] 00 [facility] Kenalog Kenalog 2020-0 No 40mg Common (Triamcinol (Triamcinol 8-03 S pirit one) one) 00:00: - [facility] 00 [facility] Bupivicaine Bupivicaine 2020-0 No 5mL Common [place] [facility] 00:00: - [facility] 00 [facility] Kenalog Kenalog 2020-0 No 40mg Common (Triamcinol (Triamcinol 8-03 S pirit one) one) 00:00: - [facility]I 00 [facility] Meloxicam Meloxicam 2020-0 2020- No [facility] 1 tablet Common 10-12 [place] [facility] 00:00: 00:00 - [facility]I 00 :00 [facility] Estrace Estrace 2018-0 Yes [place] as Comm on 04-24 [place] directed Spirit 00:00: - [facility] 00 [facility] Estrace 0.1 Estrace 0.1 2018-0 No Estrace MG/GM MG/GM 2-13 0.1 MG/GM 00:00: 00 Estrace 0.1 Estrace 0.1 2018-0 No Estrace MG/GM MG/GM 2-13 0.1 MG/GM 00:00: 00 Estrace 0.1 Estrace 0.1 2018-0 No Estrace MG/GM MG/GM 2-13 0.1 MG/GM 00:00: 00 Estrace 0.1 Estrace 0.1 2018-0 No Estrace MG/GM MG/GM 2-13 0.1 MG/GM 00:00: 00 Estrace 0.1 Estrace 0.1 2018-0 No Estrace MG/GM MG/GM 2-13 0.1 MG/GM 00:00: 00 Estrace 0.1 Estrace 0.1 2018-0 No Estrace MG/GM MG/GM 2-13 0.1 MG/GM 00:00: 00 morpHINE 2021- No Univers E.R. (MS 12-06 ity of CONTIN) 30 00:00: 00:00 [place] mg SR 00 :00 Medical tablet Branch morpHINE 2021- No Univers I.R. (MSIR) 12-06 ity of 15 mg 00:00: 00:00 [place] tablet 00 :00 Medical Branch morpHINE 2021- No Univers E.R. (MS 905-09 ity of CONTIN) 30 00:00: 00:00 [place] mg SR 00 :00 Medical tablet Branch morpHINE 2021- No Univers I.R. (MSIR) 905-09 ity of 15 mg 00:00: 00:00 [place] tablet 00 :00 Medical Branch Robaxin-750 Robaxin-750 No Robaxin-75 Livia 750 mg 750 mg 8-05 0 750 mg [facility] tablet 1 po tablet 1 po 00:00: tablet 1 dic every 6 every 6 00 po every 6 Spo rts hours prn hours prn hours prn Medicin muscle muscle muscle e spasm spasm spasm Vimovo 500 Vimovo 500 No Vimovo 500 Livia mg-20 mg mg-20 mg 8-05 mg-20 mg [facility] hope tablet,imme tablet,imme 00:00: tablet,imm dic diate and diate and 00 ediate and Sports delay delay delay Medicin release 1 release 1 release 1 e tab twice tab twice tab twice daily daily daily Robaxin-750 Robaxin-750 No Robaxin-75 Livia 750 mg 750 mg 8-05 0 750 mg [facility] tablet 1 po tablet 1 po 00:00: tablet 1 dic every 6 every 6 00 po every 6 Spo rts hours prn hours prn hours prn Medicin muscle muscle muscle e spasm spasm spasm Vimovo 500 Vimovo 500 No Vimovo 500 Livia mg-20 mg mg-20 mg 8-05 mg-20 mg [facility] tablet,imme tablet,imme 00:00: tablet,imm dic diate and diate and 00 ediate and Sports delay delay delay Medicin release 1 release 1 release 1 e tab twice tab twice tab twice daily daily daily Robaxin-750 Robaxin-750 No Robaxin-75 Livia 750 mg 750 mg 8-05 0 750 mg [facility] tablet 1 po tablet 1 po 00:00: tablet 1 dic every 6 every 6 00 po every 6 Spo rts hours prn hours prn hours prn Medicin muscle muscle muscle e spasm spasm spasm Vimovo 500 Vimovo 500 No Vimovo 500 Livia mg-20 mg mg-20 mg 8-05 mg-20 mg [facility] tablet,imme tablet,imme 00:00: tablet,imm dic diate and diate and 00 ediate and Sports delay delay delay Medicin release 1 release 1 release 1 e tab twice tab twice tab twice daily daily daily Robaxin-750 Robaxin-750 No Robaxin-75 Livia 750 mg 750 mg 8-05 0 750 mg [facility] tablet 1 po tablet 1 po 00:00: tablet 1 dic every 6 every 6 00 po every 6 Spo rts hours prn hours prn hours prn Medicin muscle muscle muscle e spasm spasm spasm Vimovo 500 Vimovo 500 No Vimovo 500 Livia mg-20 mg mg-20 mg 8-05 mg-20 mg [facility] tablet,imme tablet,imme 00:00: tablet,imm dic diate and diate and 00 ediate and Sports delay delay delay Medicin release 1 release 1 release 1 e tab twice tab twice tab twice daily daily daily Robaxin-750 Robaxin-750 No Robaxin-75 Livia 750 mg 750 mg 8-05 0 750 mg [facility] tablet 1 po tablet 1 po 00:00: tablet 1 dic every 6 every 6 00 po every 6 Spo rts hours prn hours prn hours prn Medicin muscle muscle muscle e spasm spasm spasm Vimovo 500 Vimovo 500 No Vimovo 500 Livia mg-20 mg mg-20 mg 8-05 mg-20 mg [facility] tablet,imme tablet,imme 00:00: tablet,imm dic diate and diate and ediate and Sports delay delay delay Medicin release 1 release 1 release 1 e tab twice tab twice tab twice daily daily daily Robaxin-750 Robaxin-750 No Robaxin-75 Livia 750 mg 750 mg 8-05 0 750 mg [facility] tablet 1 po tablet 1 po 00:00: tablet 1 dic every 6 every 6 00 po every 6 Spo rts hours prn hours prn hours prn Medicin muscle muscle muscle e spasm spasm spasm Vimovo 500 Vimovo 500 No Vimovo 500 Livia mg-20 mg mg-20 mg 8-05 mg-20 mg [facility] tablet,imme tablet,imme 00:00: tablet,imm dic diate and diate and 00 ediate and Sports delay delay delay Medicin release 1 release 1 release 1 e tab twice tab twice tab twice daily daily daily Robaxin-750 Robaxin-750 No Robaxin-75 Livia 750 mg 750 mg 8-05 0 750 mg [facility] tablet 1 po tablet 1 po 00:00: tablet 1 dic every 6 every 6 00 po every 6 Spo rts hours prn hours prn hours prn Medicin muscle muscle muscle e spasm spasm spasm Vimovo 500 Vimovo 500 No Vimovo 500 Livia mg-20 mg mg-20 mg 8-05 mg-20 mg [facility] tablet,imme tablet,imme 00:00: tablet,imm dic diate and diate and 00 ediate and Sports delay delay delay Medicin release 1 release 1 release 1 e tab twice tab twice tab twice daily daily daily Robaxin-750 Robaxin-750 No Robaxin-75 Livia 750 mg 750 mg 8-05 0 750 mg [facility] tablet 1 po tablet 1 po 00:00: tablet 1 dic every 6 every 6 00 po every 6 Spo rts hours prn hours prn hours prn Medicin muscle muscle muscle e spasm spasm spasm Vimovo 500 Vimovo 500 No Vimovo 500 Livia mg-20 mg mg-20 mg 8-05 mg-20 mg [facility] tablet,imme tablet,imme 00:00: tablet,imm dic diate and diate and 00 ediate and Sports delay delay delay Medicin release 1 release 1 release 1 e tab twice tab twice tab twice daily daily daily Robaxin-750 Robaxin-750 No Robaxin-75 Livia 750 mg 750 mg 8-05 0 750 mg [facility] tablet 1 po tablet 1 po 00:00: tablet 1 dic every 6 every 6 00 po every 6 Spo rts hours prn hours prn hours prn Medicin muscle muscle muscle e spasm spasm spasm Vimovo 500 Vimovo 500 No Vimovo 500 Livia mg-20 mg mg-20 mg 8-05 mg-20 mg [facility] tablet,imme tablet,imme 00:00: tablet,imm dic diate and diate and 00 ediate and Sports delay delay delay Medicin release 1 release 1 release 1 e tab twice tab twice tab twice daily daily daily Robaxin-750 Robaxin-750 No Robaxin-75 Livia 750 mg 750 mg 8-05 0 750 mg [facility] tablet 1 po tablet 1 po 00:00: tablet 1 dic every 6 every 6 00 po every 6 Spo rts hours prn hours prn hours prn Medicin muscle muscle muscle e spasm spasm spasm Vimovo 500 Vimovo 500 No Vimovo 500 Livia mg-20 mg mg-20 mg 8-05 mg-20 mg [facility] tablet,imme tablet,imme 00:00: tablet,imm dic diate and diate and 00 ediate and Sports delay delay delay Medicin release 1 release 1 release 1 e tab twice tab twice tab twice daily daily daily Vicodin 5 Vicodin 5 No Vicodin 5 Livia mg-300 mg mg-300 mg 7-17 mg-300 mg [facility] tablet 1 tablet 1 00:00: tablet 1 d ic every 6 every 6 00 every 6 Sports hours prn hours prn hours prn Medicin pain pain pain e Vicodin 5 Vicodin 5 No Vicodin 5 Livia mg-300 mg mg-300 mg 7-17 mg-300 mg [facility] tablet 1 tablet 1 00:00: tablet 1 d ic every 6 every 6 00 every 6 Sports hours prn hours prn hours prn Medicin pain pain pain e Vicodin 5 Vicodin 5 No Vicodin 5 Livia mg-300 mg mg-300 mg 7-17 mg-300 mg [facility] tablet 1 tablet 1 00:00: tablet 1 d ic every 6 every 6 00 every 6 Sports hours prn hours prn hours prn Medicin pain pain pain e Vicodin 5 Vicodin 5 No Vicodin 5 Liiva mg-300 mg mg-300 mg 7-17 mg-300 mg [facility] tablet 1 tablet 1 00:00: tablet 1 d ic every 6 every 6 00 every 6 Sports hours prn hours prn hours prn Medicin pain pain pain e Vicodin 5 Vicodin 5 No Vicodin 5 Livia mg-300 mg mg-300 mg 7-17 mg-300 mg [facility] tablet 1 tablet 1 00:00: tablet 1 d ic every 6 every 6 00 every 6 Sports hours prn hours prn hours prn Medicin pain pain pain e Vicodin 5 Vicodin 5 No Vicodin 5 Livia mg-300 mg mg-300 mg 7-17 mg-300 mg [facility] tablet 1 tablet 1 00:00: tablet 1 d ic every 6 every 6 00 every 6 Sports hours prn hours prn hours prn Medicin pain pain pain e Vicodin 5 Vicodin 5 No Vicodin 5 Livia mg-300 mg mg-300 mg 7-17 mg-300 mg [facility] tablet 1 tablet 1 00:00: tablet 1 d ic every 6 every 6 00 every 6 Sports hours prn hours prn hours prn Medicin pain pain pain e Vicodin 5 Vicodin 5 No Vicodin 5 Livia mg-300 mg mg-300 mg 7-17 mg-300 mg [facility] tablet 1 tablet 1 00:00: tablet 1 d ic every 6 every 6 00 every 6 Sports hours prn hours prn hours prn Medicin pain pain pain e Vicodin 5 Vicodin 5 No Vicodin 5 Livia mg-300 mg mg-300 mg 7-17 mg-300 mg [facility] tablet 1 tablet 1 00:00: tablet 1 d ic every 6 every 6 00 every 6 Sports hours prn hours prn hours prn Medicin pain pain pain e Vicodin 5 Vicodin 5 No Vicodin 5 Livia mg-300 mg mg-300 mg 7-17 mg-300 mg [facility] tablet 1 tablet 1 00:00: tablet 1 d ic every 6 every 6 00 every 6 Sports hours prn hours prn hours prn Medicin pain pain pain e [place] 10 [place] 10 No [place] 10 A zalea mg-325 mg mg-325 mg 6-25 mg-325 mg [facility] tablet 1-2 tablet 1-2 00:00: tablet 1-2 dic every 4-6 every 4-6 00 every 4-6 Sports hours prn hours prn hours prn Medicin pain pain pain e Ciprofloxac Ciprofloxac Yes Justice not Common in HCl in HCl [facility] defined [facility] Nitrofurant Nitrofurant Yes Justice 1 capsule Common oin oin [place] with food Spirit Macrocrysta Macrocrysta or milk - [facility] Nitrofurant Nitrofurant Yes Justice not Common oin Monohyd oin Monohyd [place] defined Spirit Macro [facility] Fluticasone Fluticasone Yes Justice not Common Propionate Propionate [place] defined Spirit [facility] Topiramate Topiramate Yes Justice not Common [place] defined Spirit [facility] Levofloxaci Levofloxaci Yes Justice not Common n n [place] defined Spirit [facility] Cyclobenzap Cyclobenzap Yes Justice not Common rine HCl rine HCl Sherman defined Spir it [facility] Robaxin-750 Robaxin-750 Yes Justice 1 tablet Common [place] [facility] Tamsulosin Tamsulosin Yes Justice not Common HCl HCl [place] defined [facility] Cephalexin Cephalexin Yes Justice not Common [place] defined Spirit [facility] Tizanidine Tizanidine Yes Justice not Common HCl HCl [place] defined Spirit - [facility] Alprazolam Alprazolam Yes Justice not Common [place] defined [facility] Tramadol Tramadol Yes Justice not Comm on HCl HCl [place] defined [facility] Clonazepam Clonazepam Yes Justice not Common [place] defined [facility] Fentanyl Fentanyl Yes Justice 1 patch to Common [place] skin [facility] Topiramate Topiramate No Topiramate Estradiol Estradiol No Estradiol clonazePAM clonazePAM No clonazePAM Nitrofurant Nitrofurant No 1{capsu QD Nitrofuran oin oin le_with toin Macrocrysta Macrocrysta _food_o Macrocryst l 100 mg l 100 mg r_milk} al 100 mg Meloxicam Meloxicam No Meloxicam Tamsulosin Tamsulosin No Tamsulosin HCl HCl HCl Robaxin-750 Robaxin-750 No 1{table 6xD Robaxin-75 750 MG 750 MG t} 0 750 MG Doxycycline Doxycycline No Doxycyclin Monohydrate Monohydrate e Monohydrat e Ibuprofen Ibuprofen No Ibuprofen Fluconazole Fluconazole No Fluconazol e Cephalexin Cephalexin No Cephalexin traMADol traMADol No traMADol HCl HCl HCl Xarelto Xarelto No Xarelto Cyanocobala Cyanocobala No Cyanocobal min min [place] Ciprofloxac Ciprofloxac No Ciprofloxa in HCl in HCl jennifer HCl Nitrofurant Nitrofurant No Nitrofuran oin Monohyd oin Monohyd toin Macro Macro Monohyd Macro fentaNYL 75 fentaNYL 75 No 1{patch fentaNYL MCG/HR MCG/HR _to_ski 75 MCG/HR n} cyclobenzap cyclobenzap No cyclobenza rine rine brady Pantoprazol Pantoprazol No Pantoprazo e Sodium e Sodium le Sodium levoFLOXaci levoFLOXaci No levoFLOXac n n in ALPRAZolam ALPRAZolam No ALPRAZolam Cyclobenzap Cyclobenzap No Cyclobenza rine HCl rine HCl brady HCl tiZANidine tiZANidine No tiZANidine HCl HCl HCl Fluticasone Fluticasone No Fluticason Propionate Propionate e Propionate Pantoprazol Pantoprazol No Pantoprazo e Sodium e Sodium le Sodium cyclobenzap cyclobenzap No cyclobenza rine rine brady Nitrofurant Nitrofurant No 1{capsu QD Nitrofuran oin oin le_with toin Macrocrysta Macrocrysta _food_o Macrocryst l 100 mg l 100 mg r_milk} al 100 mg Tamsulosin Tamsulosin No Tamsulosin HCl HCl HCl Fluconazole Fluconazole No Fluconazol e clonazePAM clonazePAM No clonazePAM Meloxicam Meloxicam No Meloxicam tiZANidine tiZANidine No tiZANidine HCl HCl HCl Fluticasone Fluticasone No Fluticason Propionate Propionate e Propionate levoFLOXaci levoFLOXaci No levoFLOXac n n in Robaxin-750 Robaxin-750 No 1{table 6xD Robaxin-75 750 MG 750 MG t} 0 750 MG Doxycycline Doxycycline No Doxycyclin Monohydrate Monohydrate e Monohydrat e ALPRAZolam ALPRAZolam No ALPRAZolam Estradiol Estradiol No Estradiol fentaNYL 75 fentaNYL 75 No 1{patch fentaNYL MCG/HR MCG/HR _to_ski 75 MCG/HR n} Topiramate Topiramate No Topiramate Ciprofloxac Ciprofloxac No Ciprofloxa in HCl in HCl jennifer HCl Nitrofurant Nitrofurant No Nitrofuran oin Monohyd oin Monohyd toin Macro Macro Monohyd Macro Cyclobenzap Cyclobenzap No Cyclobenza rine HCl rine HCl brady HCl traMADol traMADol No traMADol HCl HCl HCl Ibuprofen Ibuprofen No Ibuprofen Xarelto Xarelto No Xarelto Cephalexin Cephalexin No Cephalexin Cyanocobala Cyanocobala No Cyanocobal min min l[place] Pantoprazol Pantoprazol No Pantoprazo e Sodium e Sodium le Sodium cyclobenzap cyclobenzap No cyclobenza rine rine brady Nitrofurant Nitrofurant No 1{capsu QD Nitrofuran oin oin le_with toin Macrocrysta Macrocrysta _food_o Macrocryst l 100 mg l 100 mg r_milk} al 100 mg Tamsulosin Tamsulosin No Tamsulosin HCl HCl HCl Fluconazole Fluconazole No Fluconazol e clonazePAM clonazePAM No clonazePAM Meloxicam Meloxicam No Meloxicam tiZANidine tiZANidine No tiZANidine HCl HCl HCl Fluticasone Fluticasone No Fluticason Propionate Propionate e Propionate levoFLOXaci levoFLOXaci No levoFLOXac n n in Robaxin-750 Robaxin-750 No 1{table 6xD Robaxin-75 750 MG 750 MG t} 0 750 MG Doxycycline Doxycycline No Doxycyclin Monohydrate Monohydrate e Monohydrat e ALPRAZolam ALPRAZolam No ALPRAZolam Estradiol Estradiol No Estradiol fentaNYL 75 fentaNYL 75 No 1{patch fentaNYL MCG/HR MCG/HR _to_ski 75 MCG/HR n} Topiramate Topiramate No Topiramate Ciprofloxac Ciprofloxac No Ciprofloxa in HCl in HCl jennifer HCl Nitrofurant Nitrofurant No Nitrofuran oin Monohyd oin Monohyd toin Macro Macro Monohyd Macro Cyclobenzap Cyclobenzap No Cyclobenza rine HCl rine HCl brady HCl traMADol traMADol No traMADol HCl HCl HCl Ibuprofen Ibuprofen No Ibuprofen Xarelto Xarelto No Xarelto Cephalexin Cephalexin No Cephalexin Cyanocobala Cyanocobala No Cyanocobal min min l[place] traMADol traMADol No traMADol HCl HCl HCl Topiramate Topiramate No Topiramate Doxycycline Doxycycline No Doxycyclin Monohydrate Monohydrate e Monohydrat e Ibuprofen Ibuprofen No Ibuprofen fentaNYL 75 fentaNYL 75 No 1{patch fentaNYL MCG/HR MCG/HR _to_ski 75 MCG/HR n} Tamsulosin Tamsulosin No Tamsulosin HCl HCl HCl Meloxicam Meloxicam No Meloxicam clonazePAM clonazePAM No clonazePAM Fluconazole Fluconazole No Fluconazol e tiZANidine tiZANidine No tiZANidine HCl HCl HCl ALPRAZolam ALPRAZolam No ALPRAZolam Robaxin-750 Robaxin-750 No 1{table 6xD Robaxin-75 750 MG 750 MG t} 0 750 MG Pantoprazol Pantoprazol No Pantoprazo e Sodium e Sodium le Sodium Fluticasone Fluticasone No Fluticason Propionate Propionate e Propionate Xarelto Xarelto No Xarelto cyclobenzap cyclobenzap No cyclobenza rine rine brady Cyanocobala Cyanocobala No Cyanocobal min min l[place] Estradiol Estradiol No Estradiol Alendronate Alendronate No Alendronat Sodium Sodium e Sodium Cephalexin Cephalexin No Cephalexin Nitrofurant Nitrofurant No Nitrofuran oin Monohyd oin Monohyd toin Macro Macro Monohyd Macro levoFLOXaci levoFLOXaci No levoFLOXac n n in Nitrofurant Nitrofurant No 1{capsu QD Nitrofuran oin oin le_with toin Macrocrysta Macrocrysta _food_o Macrocryst l 100 mg l 100 mg r_milk} al 100 mg Ciprofloxac Ciprofloxac No Ciprofloxa in HCl in HCl jennifer HCl Cyclobenzap Cyclobenzap No Cyclobenza rine HCl rine HCl brady HCl Topiramate Topiramate No Topiramate Estradiol Estradiol No Estradiol clonazePAM clonazePAM No clonazePAM Nitrofurant Nitrofurant No 1{capsu QD Nitrofuran oin oin le_with toin Macrocrysta Macrocrysta _food_o Macrocryst l 100 mg l 100 mg r_milk} al 100 mg Meloxicam Meloxicam No Meloxicam Tamsulosin Tamsulosin No Tamsulosin HCl HCl HCl Robaxin-750 Robaxin-750 No 1{table 6xD Robaxin-75 750 MG 750 MG t} 0 750 MG Doxycycline Doxycycline No Doxycyclin Monohydrate Monohydrate e Monohydrat e Ibuprofen Ibuprofen No Ibuprofen Fluconazole Fluconazole No Fluconazol e Cephalexin Cephalexin No Cephalexin traMADol traMADol No traMADol HCl HCl HCl Xarelto Xarelto No Xarelto Cyanocobala Cyanocobala No Cyanocobal min min [place] Ciprofloxac Ciprofloxac No Ciprofloxa in HCl in HCl jennifer HCl Nitrofurant Nitrofurant No Nitrofuran oin Monohyd oin Monohyd toin Macro Macro Monohyd Macro fentaNYL 75 fentaNYL 75 No 1{patch fentaNYL MCG/HR MCG/HR _to_ski 75 MCG/HR n} cyclobenzap cyclobenzap No cyclobenza rine rine bardy Pantoprazol Pantoprazol No Pantoprazo e Sodium e Sodium le Sodium levoFLOXaci levoFLOXaci No levoFLOXac n n in ALPRAZolam ALPRAZolam No ALPRAZolam Cyclobenzap Cyclobenzap No Cyclobenza rine HCl rine HCl brady HCl tiZANidine tiZANidine No tiZANidine HCl HCl HCl Fluticasone Fluticasone No Fluticason Propionate Propionate e Propionate Topiramate Topiramate No Topiramate Estradiol Estradiol No Estradiol clonazePAM clonazePAM No clonazePAM Nitrofurant Nitrofurant No 1{capsu QD Nitrofuran oin oin le_with toin Macrocrysta Macrocrysta _food_o Macrocryst l 100 mg l 100 mg r_milk} al 100 mg Meloxicam Meloxicam No Meloxicam Tamsulosin Tamsulosin No Tamsulosin HCl HCl HCl Robaxin-750 Robaxin-750 No 1{table 6xD Robaxin-75 750 MG 750 MG t} 0 750 MG Doxycycline Doxycycline No Doxycyclin Monohydrate Monohydrate e Monohydrat e Ibuprofen Ibuprofen No Ibuprofen Fluconazole Fluconazole No Fluconazol e Cephalexin Cephalexin No Cephalexin traMADol traMADol No traMADol HCl HCl HCl Xarelto Xarelto No Xarelto Cyanocobala Cyanocobala No Cyanocobal min min [place] Ciprofloxac Ciprofloxac No Ciprofloxa in HCl in HCl jennifer HCl Nitrofurant Nitrofurant No Nitrofuran oin Monohyd oin Monohyd toin Macro Macro Monohyd Macro fentaNYL 75 fentaNYL 75 No 1{patch fentaNYL MCG/HR MCG/HR _to_ski 75 MCG/HR n} cyclobenzap cyclobenzap No cyclobenza rine rine brady Pantoprazol Pantoprazol No Pantoprazo e Sodium e Sodium le Sodium levoFLOXaci levoFLOXaci No levoFLOXac n n in ALPRAZolam ALPRAZolam No ALPRAZolam Cyclobenzap Cyclobenzap No Cyclobenza rine HCl rine HCl brady HCl tiZANidine tiZANidine No tiZANidine HCl HCl HCl Fluticasone Fluticasone No Fluticason Propionate Propionate e Propionate meloxicam meloxicam No meloxicam Livia 15 mg 15 mg 15 mg [facility] tablet Take tablet Take tablet dic 1 tablet 1 tablet Take 1 Sport s every day every day tablet Med icin by oral by oral every day e route as route as by oral directed directed route as for 30 for 30 directed days. days. for 30 days. methocarbam methocarbam No methocarba Livia ol 500 mg ol 500 mg mol 500 mg [facility] tablet Take tablet Take tablet dic by oral by oral Take by Sports route for route for oral route Medicin 15 days. 15 days. for 15 e days. metoprolol metoprolol No metoprolol Livia succinate succinate succinate [facility] ER 25 mg ER 25 mg ER 25 mg dic tablet,exte tablet,exte tablet,ext Sports nded nded ended Medicin release 24 release 24 release 24 e hr hr hr nitroglycer nitroglycer No nitroglyce Livia in 0.4 mg in 0.4 mg rin 0.4 mg [facility] sublingual sublingual sublingual dic tablet tablet tablet Sports Medicin e Robaxin RX Robaxin RX No Robaxin RX Livia by other MD by other MD by other [facility] MD dic Sports Medicin e tizanidine tizanidine No tizanidine Livia 4 mg tablet 4 mg tablet 4 mg O rthope TAKE 1 TAKE 1 tablet dic TABLET BY TABLET BY TAKE 1 Spo rts MOUTH AT MOUTH AT TABLET BY Me dicin BEDTIME BEDTIME MOUTH AT e BEDTIME topiramate topiramate No topiramate Livia 25 mg 25 mg 25 mg [facility] tablet TAKE tablet TAKE tablet dic 1 TABLET BY 1 TABLET BY TAKE 1 Sports MOUTH TWICE MOUTH TWICE TABLET BY Medicin DAILY DAILY MOUTH e TWICE DAILY tramadol 50 tramadol 50 No tramadol Livia mg tablet mg tablet 50 mg Orth ope Take 1 Take 1 tablet dic tablet tablet Take 1 Sports every 6 every 6 tablet Medicin hours by hours by every 6 e oral route oral route hours by as needed as needed oral route for 7 days. for 7 days. as needed for 7 days. Xarelto 10 Xarelto 10 No Xarelto 10 Livia mg tablet mg tablet mg tablet [facility] TAKE ONE TAKE ONE TAKE ONE dic (1) (1) (1) Sports TABLET(S) TABLET(S) TABLET(S) Medicin BY MOUTH BY MOUTH BY MOUTH e ONCE A DAY. ONCE A DAY. ONCE A DAY. albuterol albuterol No albuterol Livia sulfate 2.5 sulfate 2.5 sulfate [facility] mg/3 mL mg/3 mL 2.5 mg/3 dic (0.083 %) (0.083 %) mL (0.083 Sports solution solution %) Medicin for for solution e nebulizatio nebulizatio for n n nebulizati on alendronate alendronate No alendronat Livia 70 mg 70 mg e 70 mg [facility] tablet tablet tablet dic Sports Medicin e amlodipine amlodipine No amlodipine Livia 10 mg 10 mg 10 mg [facility] tablet tablet tablet dic Sports Medicin e amlodipine amlodipine No amlodipine Livia 5 mg tablet 5 mg tablet 5 mg O rthope TAKE 1 TAKE 1 tablet dic TABLET BY TABLET BY TAKE 1 Spo rts MOUTH EVERY MOUTH EVERY TABLET BY Medicin DAY DAY MOUTH e EVERY DAY aspirin 81 aspirin 81 No 1 BID aspirin 81 Livia mg chewable mg chewable mg O r[facility]ope tablet Chew tablet Chew chewable dic 1 tablet 1 tablet tablet Sport s twice a day twice a day Chew 1 Medicin by oral by oral tablet e route as route as twice a directed directed day by for 30 for 30 oral route days. days. as directed for 30 days. cephalexin cephalexin No cephalexin Livia 500 mg 500 mg 500 mg [facility] capsule capsule capsule dic Sports Medicin e clonazepam clonazepam No clonazepam Livia 1 mg tablet 1 mg tablet 1 mg O r[facility]ope TAKE 1 TAKE 1 tablet dic TABLET BY TABLET BY TAKE 1 Spo rts MOUTH THREE MOUTH THREE TABLET BY Medicin TIMES DAILY TIMES DAILY MOUTH e THREE TIMES DAILY cyanocobala cyanocobala No cyanocobal Livia min (vit min (vit luevano (vit Or thope B-12) 1,000 B-12) 1,000 B-12) dic mcg/mL mcg/mL 1,000 Sports injection injection mcg/mL Med icin solution solution injection e INJECT 1ML INJECT 1ML solution ONCE A ONCE A INJECT 1ML MONTH MONTH ONCE A MONTH Dayvigo 5 Dayvigo 5 No Dayvigo 5 Livia mg tablet mg tablet mg tablet [facility] dic Sports Medicin e doxycycline doxycycline No doxycyclin Livia hyclate 100 hyclate 100 e hyclate [facility] mg capsule mg capsule 100 mg d ic Take 1 Take 1 capsule Sports capsule capsule Take 1 Medicin twice a day twice a day capsule e by oral by oral twice a route as route as day by directed directed oral route for 7 days. for 7 days. as directed for 7 days. fentanyl 50 fentanyl 50 No fentanyl Livia mcg/hr mcg/hr 50 mcg/hr [facility] e transdermal transdermal transderma dic patch APPLY patch APPLY l patch Sports ONE PATCH ONE PATCH APPLY ONE Medicin TO SKIN TO SKIN PATCH TO e EVERY 72 EVERY 72 SKIN EVERY HOURS HOURS 72 HOURS hydrocodone hydrocodone No hydrocodon Livia 10 10 e 10 [facility] mg-acetamin mg-acetamin mg-acetami dic ophen 325 ophen 325 nophen 325 Sports mg tablet mg tablet mg tablet Medicin Take 1 Take 1 Take 1 e tablet tablet tablet every 6 every 6 every 6 hours by hours by hours by oral route oral route oral route as needed as needed as needed for 7 days. for 7 days. for 7 days. hydrocodone hydrocodone No hydrocodon Livia 5 5 e 5 [facility] mg-acetamin mg-acetamin mg-acetami dic ophen 325 ophen 325 nophen 325 Sports mg tablet mg tablet mg tablet Medicin e hydromorpho hydromorpho No hydromorph Livia ne 4 mg ne 4 mg one 4 mg Ortho pe tablet tablet tablet dic Sports Medicin e meloxicam meloxicam No meloxicam Livia 15 mg 15 mg 15 mg [facility] tablet Take tablet Take tablet dic 1 tablet 1 tablet Take 1 Sport s every day every day tablet Med icin by oral by oral every day e route as route as by oral directed directed route as for 30 for 30 directed days. days. for 30 days. methocarbam methocarbam No methocarba Livia ol 500 mg ol 500 mg mol 500 mg [facility] tablet Take tablet Take tablet dic by oral by oral Take by Sports route for route for oral route Medicin 15 days. 15 days. for 15 e days. metoprolol metoprolol No metoprolol Livia succinate succinate succinate [facility] ER 25 mg ER 25 mg ER 25 mg dic tablet,exte tablet,exte tablet,ext Sports nded nded ended Medicin release 24 release 24 release 24 e hr hr hr nitroglycer nitroglycer No nitroglyce Livia in 0.4 mg in 0.4 mg rin 0.4 mg [facility] sublingual sublingual sublingual dic tablet tablet tablet Sports Medicin e Robaxin RX Robaxin RX No Robaxin RX Livia by other MD by other MD by other [facility] dic Sports Medicin e tizanidine tizanidine No tizanidine Livia 4 mg tablet 4 mg tablet 4 mg O r[facility]ope TAKE 1 TAKE 1 tablet dic TABLET BY TABLET BY TAKE 1 Spo rts MOUTH AT MOUTH AT TABLET BY Md dicin BEDTIME BEDTIME MOUTH AT e BEDTIME topiramate topiramate No topiramate Livia 25 mg 25 mg 25 mg [facility] tablet TAKE tablet TAKE tablet dic 1 TABLET BY 1 TABLET BY TAKE 1 Sports MOUTH TWICE MOUTH TWICE TABLET BY Medicin DAILY DAILY MOUTH e TWICE DAILY tramadol 50 tramadol 50 No tramadol Livia mg tablet mg tablet 50 mg Orth ope Take 1 Take 1 tablet dic tablet tablet Take 1 Sports every 6 every 6 tablet Medicin hours by hours by every 6 e oral route oral route hours by as needed as needed oral route for 7 days. for 7 days. as needed for 7 days. Xarelto 10 Xarelto 10 No Xarelto 10 Livia mg tablet mg tablet mg tablet [facility] TAKE ONE TAKE ONE TAKE ONE dic (1) (1) (1) Sports TABLET(S) TABLET(S) TABLET(S) Medicin BY MOUTH BY MOUTH BY MOUTH e ONCE A DAY. ONCE A DAY. ONCE A DAY. albuterol albuterol No albuterol Livia sulfate 2.5 sulfate 2.5 sulfate [facility] mg/3 mL mg/3 mL 2.5 mg/3 dic (0.083 %) (0.083 %) mL (0.083 Sports solution solution %) Medicin for for solution e nebulizatio nebulizatio for n n nebulizati on alendronate alendronate No alendronat Livia 70 mg 70 mg e 70 mg [facility] tablet tablet tablet dic Sports Medicin e amlodipine amlodipine No amlodipine Livia 10 mg 10 mg 10 mg [facility] tablet tablet tablet dic Sports Medicin e amlodipine amlodipine No amlodipine Livia 5 mg tablet 5 mg tablet 5 mg O r[facility]ope TAKE 1 TAKE 1 tablet dic TABLET BY TABLET BY TAKE 1 Spo rts MOUTH EVERY MOUTH EVERY TABLET BY Medicin DAY DAY MOUTH e EVERY DAY aspirin 81 aspirin 81 No 1 BID aspirin 81 Livia mg chewable mg chewable mg O [facility] tablet Chew tablet Chew chewable dic 1 tablet 1 tablet tablet Sport s twice a day twice a day Chew 1 Medicin by oral by oral tablet e route as route as twice a directed directed day by for 30 for 30 oral route days. days. as directed for 30 days. cephalexin cephalexin No cephalexin Livia 500 mg 500 mg 500 mg [facility] capsule capsule capsule dic Sports Medicin e clonazepam clonazepam No clonazepam Livia 1 mg tablet 1 mg tablet 1 mg O [facility]ope TAKE 1 TAKE 1 tablet dic TABLET BY TABLET BY TAKE 1 Spo rts MOUTH THREE MOUTH THREE TABLET BY Medicin TIMES DAILY TIMES DAILY MOUTH e THREE TIMES DAILY cyanocobala cyanocobala No cyanocobal Livia min (vit min (vit luevano (vit Or thope B-12) 1,000 B-12) 1,000 B-12) dic mcg/mL mcg/mL 1,000 Sports injection injection mcg/mL Med icin solution solution injection e INJECT 1ML INJECT 1ML solution ONCE A ONCE A INJECT 1ML MONTH MONTH ONCE A MONTH Dayvigo 5 Dayvigo 5 No Dayvigo 5 Livia mg tablet mg tablet mg tablet [facility] dic Sports Medicin e doxycycline doxycycline No doxycyclin Livia hyclate 100 hyclate 100 e hyclate [facility] mg capsule mg capsule 100 mg d ic Take 1 Take 1 capsule Sports capsule capsule Take 1 Medicin twice a day twice a day capsule e by oral by oral twice a route as route as day by directed directed oral route for 7 days. for 7 days. as directed for 7 days. fentanyl 50 fentanyl 50 No fentanyl Livia mcg/hr mcg/hr 50 mcg/hr [facility] e transdermal transdermal transderma dic patch APPLY patch APPLY l patch Sports ONE PATCH ONE PATCH APPLY ONE Medicin TO SKIN TO SKIN PATCH TO e EVERY 72 EVERY 72 SKIN EVERY HOURS HOURS 72 HOURS hydrocodone hydrocodone No hydrocodon Livia 10 10 e 10 [facility] mg-acetamin mg-acetamin mg-acetami dic ophen 325 ophen 325 nophen 325 Sports mg tablet mg tablet mg tablet Medicin Take 1 Take 1 Take 1 e tablet tablet tablet every 6 every 6 every 6 hours by hours by hours by oral route oral route oral route as needed as needed as needed for 7 days. for 7 days. for 7 days. hydrocodone hydrocodone No hydrocodon Livia 5 5 e 5 [facility] mg-acetamin mg-acetamin mg-acetami dic ophen 325 ophen 325 nophen 325 Sports mg tablet mg tablet mg tablet Medicin e hydromorpho hydromorpho No hydromorph Livia ne 4 mg ne 4 mg one 4 mg [facility] pe tablet tablet tablet dic Sports Medicin e meloxicam meloxicam No meloxicam Livia 15 mg 15 mg 15 mg [facility] tablet Take tablet Take tablet dic 1 tablet 1 tablet Take 1 Sport s every day every day tablet Med icin by oral by oral every day e route as route as by oral directed directed route as for 30 for 30 directed days. days. for 30 days. methocarbam methocarbam No methocarba Livia ol 500 mg ol 500 mg mol 500 mg [facility] tablet Take tablet Take tablet dic 1 tablet 1 tablet Take 1 Sport s every 8 every 8 tablet Medicin hours by hours by every 8 e oral route oral route hours by as needed as needed oral route for 30 for 30 as needed days. days. for 30 days. metoprolol metoprolol No metoprolol Livia succinate succinate succinate [facility] ER 25 mg ER 25 mg ER 25 mg dic tablet,exte tablet,exte tablet,ext Sports nded nded ended Medicin release 24 release 24 release 24 e hr hr hr nitroglycer nitroglycer No nitroglyce Livia in 0.4 mg in 0.4 mg rin 0.4 mg [facility] sublingual sublingual sublingual dic tablet tablet tablet Sports Medicin e ofloxacin ofloxacin No ofloxacin Livia 0.3 % eye 0.3 % eye 0.3 % eye [facility] drops drops drops dic Sports Medicin e Robaxin RX Robaxin RX No Robaxin RX Livia by other MD by other MD by other [facility] MD dic Sports Medicin e tizanidine tizanidine No tizanidine Livia 4 mg tablet 4 mg tablet 4 mg [facility] TAKE 1 TAKE 1 tablet dic TABLET BY TABLET BY TAKE 1 Spo rts MOUTH AT MOUTH AT TABLET BY Me dicin BEDTIME BEDTIME MOUTH AT e BEDTIME topiramate topiramate No topiramate Livia 25 mg 25 mg 25 mg [facility] tablet TAKE tablet TAKE tablet dic 1 TABLET BY 1 TABLET BY TAKE 1 Sports MOUTH TWICE MOUTH TWICE TABLET BY Medicin DAILY DAILY MOUTH e TWICE DAILY tramadol 50 tramadol 50 No tramadol Livia mg tablet mg tablet 50 mg Orth ope Take 1 Take 1 tablet dic tablet tablet Take 1 Sports every 6 every 6 tablet Medicin hours by hours by every 6 e oral route oral route hours by as needed as needed oral route for 7 days. for 7 days. as needed for 7 days. Xarelto 10 Xarelto 10 No Xarelto 10 Livia mg tablet mg tablet mg tablet [facility] TAKE ONE TAKE ONE TAKE ONE dic (1) (1) (1) Sports TABLET(S) TABLET(S) TABLET(S) Medicin BY MOUTH BY MOUTH BY MOUTH e ONCE A DAY. ONCE A DAY. ONCE A DAY. albuterol albuterol No albuterol Livia sulfate 2.5 sulfate 2.5 sulfate [facility] mg/3 mL mg/3 mL 2.5 mg/3 dic (0.083 %) (0.083 %) mL (0.083 Sports solution solution %) Medicin for for solution e nebulizatio nebulizatio for n n nebulizati on alendronate alendronate No alendronat Livia 70 mg 70 mg e 70 mg [facility] tablet tablet tablet dic Sports Medicin e amlodipine amlodipine No amlodipine Livia 10 mg 10 mg 10 mg [facility] tablet tablet tablet dic Sports Medicin e amlodipine amlodipine No amlodipine Livia 5 mg tablet 5 mg tablet 5 mg [facility] TAKE 1 TAKE 1 tablet dic TABLET BY TABLET BY TAKE 1 Spo rts MOUTH EVERY MOUTH EVERY TABLET BY Medicin DAY DAY MOUTH e EVERY DAY aspirin 81 aspirin 81 No 1 BID aspirin 81 Livia mg chewable mg chewable mg [facility] tablet Chew tablet Chew chewable dic 1 tablet 1 tablet tablet Sport s twice a day twice a day Chew 1 Medicin by oral by oral tablet e route as route as twice a directed directed day by for 30 for 30 oral route days. days. as directed for 30 days. cephalexin cephalexin No cephalexin Livia 500 mg 500 mg 500 mg [facility] capsule capsule capsule dic Sports Medicin e clonazepam clonazepam No clonazepam Livia 1 mg tablet 1 mg tablet 1 mg [facility]ope TAKE 1 TAKE 1 tablet dic TABLET BY TABLET BY TAKE 1 Spo rts MOUTH THREE MOUTH THREE TABLET BY Medicin TIMES DAILY TIMES DAILY MOUTH e THREE TIMES DAILY cyanocobala cyanocobala No cyanocobal Livia min (vit min (vit luevano (vit Or thope B-12) 1,000 B-12) 1,000 B-12) dic mcg/mL mcg/mL 1,000 [facility] injection injection mcg/mL Med [facility] solution solution injection e INJECT 1ML INJECT 1ML solution ONCE A ONCE A INJECT 1ML MONTH MONTH ONCE A MONTH Dayvigo 5 Dayvigo 5 No Dayvigo 5 [facility] mg tablet mg tablet mg tablet [facility] e doxycycline doxycycline No doxycyclin [facility] hyclate 100 hyclate 100 e hyclate [facility] mg capsule mg capsule 100 mg d ic Take 1 Take 1 capsule [facility] capsule capsule Take 1 Medicin twice a day twice a day capsule e by oral by oral twice a route as route as day by directed directed oral route for 7 days. for 7 days. as directed for 7 days. fentanyl 50 fentanyl 50 No fentanyl [facility] mcg/hr mcg/hr 50 mcg/hr [facility] e transdermal transdermal transderma dic patch APPLY patch APPLY l patch [facility] ONE PATCH ONE PATCH APPLY ONE Medicin TO SKIN TO SKIN PATCH TO e EVERY 72 EVERY 72 SKIN EVERY HOURS HOURS 72 HOURS hydrocodone hydrocodone No hydrocodon [facility] 10 10 e 10 [facility] mg-acetamin mg-acetamin mg-acetami dic ophen 325 ophen 325 nophen 325 [facility] mg tablet mg tablet mg tablet Medicin Take 1 Take 1 Take 1 e tablet tablet tablet every 6 every 6 every 6 hours by hours by hours by oral route oral route oral route as needed as needed as needed for 7 days. for 7 days. for 7 days. hydrocodone hydrocodone No hydrocodon [facility] 5 5 e 5 [facility] mg-acetamin mg-acetamin mg-acetami dic ophen 325 ophen 325 nophen 325 [facility] mg tablet mg tablet mg tablet Medicin e hydromorpho hydromorpho No hydromorph [facility] ne 4 mg ne 4 mg one 4 mg [facility] pe tablet tablet tablet dic Sports Medicin e meloxicam meloxicam No meloxicam L[facility] 15 mg 15 mg 15 mg [facility] tablet Take tablet Take tablet dic 1 tablet 1 tablet Take 1 Sport s every day every day tablet Med icin by oral by oral every day e route as route as by oral directed directed route as for 30 for 30 directed days. days. for 30 days. methocarbam methocarbam No methocarba [facility] ol 500 mg ol 500 mg mol 500 mg [facility] tablet Take tablet Take tablet dic 1 tablet 1 tablet Take 1 [facility] s every 8 every 8 tablet Medicin hours by hours by every 8 e oral route oral route hours by as needed as needed oral route for 30 for 30 as needed days. days. for 30 days. metoprolol metoprolol No metoprolol [facility] succinate succinate succinate [facility] ER 25 mg ER 25 mg ER 25 mg dic tablet,exte tablet,exte tablet,ext [facility] nded nded ended Medicin release 24 release 24 release 24 e hr hr hr nitroglycer nitroglycer No nitroglyce [facility] in 0.4 mg in 0.4 mg rin 0.4 mg [facility] sublingual sublingual sublingual dic tablet tablet tablet Sports Medicin e ofloxacin ofloxacin No ofloxacin [facility] 0.3 % eye 0.3 % eye 0.3 % eye [facility] drops drops drops dic Sports Medicin e Robaxin RX Robaxin RX No Robaxin RX [facility] by other MD by other MD by other [facility] MD dic [facility] Medicin e tizanidine tizanidine No tizanidine [facility] 4 mg tablet 4 mg tablet 4 mg O [facility] TAKE 1 TAKE 1 tablet dic TABLET BY TABLET BY TAKE 1 Spo rts MOUTH AT MOUTH AT TABLET BY Me dicin BEDTIME BEDTIME MOUTH AT e BEDTIME topiramate topiramate No topiramate [facility] 25 mg 25 mg 25 mg [facility] tablet TAKE tablet TAKE tablet dic 1 TABLET BY 1 TABLET BY TAKE 1 Sports MOUTH TWICE MOUTH TWICE TABLET BY Medicin DAILY DAILY MOUTH e TWICE DAILY tramadol 50 tramadol 50 No tramadol [facility] mg tablet mg tablet 50 mg [facility] Take 1 Take 1 tablet dic tablet tablet Take 1 Sports every 6 every 6 tablet Medicin hours by hours by every 6 e oral route oral route hours by as needed as needed oral route for 7 days. for 7 days. as needed for 7 days. Xarelto 10 Xarelto 10 No Xarelto 10 [facility] mg tablet mg tablet mg tablet [facility] TAKE ONE TAKE ONE TAKE ONE dic (1) (1) (1) Sports TABLET(S) TABLET(S) TABLET(S) Medicin BY MOUTH BY MOUTH BY MOUTH e ONCE A DAY. ONCE A DAY. ONCE A DAY. albuterol albuterol No albuterol [facility] sulfate 2.5 sulfate 2.5 sulfate [facility] mg/3 mL mg/3 mL 2.5 mg/3 dic (0.083 %) (0.083 %) mL (0.083 [facility] solution solution %) Medicin for for solution e nebulizatio nebulizatio for n n nebulizati on alendronate alendronate No alendronat [facility] 70 mg 70 mg e 70 mg [facility] tablet tablet tablet dic [facility] Medicin e amlodipine amlodipine No amlodipine [facility] 10 mg 10 mg 10 mg [facility] tablet tablet tablet dic [facility] Medicin e amlodipine amlodipine No amlodipine [facility] 5 mg tablet 5 mg tablet 5 mg [facility] TAKE 1 TAKE 1 tablet dic TABLET BY TABLET BY TAKE 1 Spo rts MOUTH EVERY MOUTH EVERY TABLET BY Medicin DAY DAY MOUTH e EVERY DAY aspirin 81 aspirin 81 No 1 BID aspirin 81 [facility] mg chewable mg chewable mg [facility] tablet Chew tablet Chew chewable dic 1 tablet 1 tablet tablet Sport s twice a day twice a day Chew 1 Medicin by oral by oral tablet e route as route as twice a directed directed day by for 30 for 30 oral route days. days. as directed for 30 days. cephalexin cephalexin No cephalexin [facility] 500 mg 500 mg 500 mg [facility] capsule capsule capsule dic [facility] Medicin e clonazepam clonazepam No clonazepam [facility] 1 mg tablet 1 mg tablet 1 mg [facility] TAKE 1 TAKE 1 tablet dic TABLET BY TABLET BY TAKE 1 Spo rts MOUTH THREE MOUTH THREE TABLET BY Medicin TIMES DAILY TIMES DAILY MOUTH e THREE TIMES DAILY cyanocobala cyanocobala No cyanocobal [facility] min (vit min (vit luevano (vit [facility] B-12) 1,000 B-12) 1,000 B-12) dic mcg/mL mcg/mL 1,000 [facility] injection injection mcg/mL Med ic[facility] solution solution injection e INJECT 1ML INJECT 1ML solution ONCE A ONCE A INJECT 1ML MONTH MONTH ONCE A MONTH Dayvigo 5 Dayvigo 5 No Dayvigo 5 [facility] mg tablet mg tablet mg tablet [facility] e doxycycline doxycycline No doxycyclin [facility] hyclate 100 hyclate 100 e hyclate [facility] mg capsule mg capsule 100 mg d ic Take 1 Take 1 capsule [facility] capsule capsule Take 1 Medicin twice a day twice a day capsule e by oral by oral twice a route as route as day by directed directed oral route for 7 days. for 7 days. as directed for 7 days. fentanyl 50 fentanyl 50 No fentanyl [facility] mcg/hr mcg/hr 50 mcg/hr [facility] e transdermal transdermal transderma dic patch APPLY patch APPLY l patch [facility] ONE PATCH ONE PATCH APPLY ONE Medicin TO SKIN TO SKIN PATCH TO e EVERY 72 EVERY 72 SKIN EVERY HOURS HOURS 72 HOURS hydrocodone hydrocodone No hydrocodon [facility] 10 10 e 10 [facility] mg-acetamin mg-acetamin mg-acetami dic ophen 325 ophen 325 nophen 325 [facility] mg tablet mg tablet mg tablet Medicin Take 1 Take 1 Take 1 e tablet tablet tablet every 6 every 6 every 6 hours by hours by hours by oral route oral route oral route as needed as needed as needed for 7 days. for 7 days. for 7 days. hydrocodone hydrocodone No hydrocodon [facility] 5 5 e 5 [facility] mg-acetamin mg-acetamin mg-acetami dic ophen 325 ophen 325 nophen 325 [facility] mg tablet mg tablet mg tablet Medicin e hydromorpho hydromorpho No hydromorph L[facility] ne 4 mg ne 4 mg one 4 mg [facility] pe tablet tablet tablet dic Sports Medicin e levofloxaci levofloxaci No levofloxac [facility] n 500 mg n 500 mg in 500 mg Or [facility]ope tablet tablet tablet dic [facility] Medicin e meloxicam meloxicam No meloxicam [facility] 15 mg 15 mg 15 mg [facility] tablet Take tablet Take tablet dic 1 tablet(s) 1 tablet(s) Take 1 [facility] every day every day tablet(s) Medicin by oral by oral every day e route as route as by oral directed directed route as for 30 for 30 directed days. days. for 30 days. methocarbam methocarbam No methocarba [facility] ol 500 mg ol 500 mg mol 500 mg [facility] tablet Take tablet Take tablet dic 1 tablet 1 tablet Take 1 Sport s every 8 every 8 tablet Medicin hours by hours by every 8 e oral route oral route hours by as needed as needed oral route for 30 for 30 as needed days. days. for 30 days. metoprolol metoprolol No metoprolol [facility] succinate succinate succinate [facility] ER 25 mg ER 25 mg ER 25 mg dic tablet,exte tablet,exte tablet,ext [facility] nded nded ended Medicin release 24 release 24 release 24 e hr hr hr nitroglycer nitroglycer No nitroglyce [facility] in 0.4 mg in 0.4 mg rin 0.4 mg [facility] sublingual sublingual sublingual dic tablet tablet tablet Sports Medicin e ofloxacin ofloxacin No ofloxacin [facility] 0.3 % eye 0.3 % eye 0.3 % eye [facility] drops drops drops dic [facility] Medicin e Robaxin RX Robaxin RX No Robaxin RX [facility] by other MD by other MD by other [facility] MD dic [facility] Medicin e tizanidine tizanidine No tizanidine [facility] 4 mg tablet 4 mg tablet 4 mg [facility] TAKE 1 TAKE 1 tablet dic TABLET BY TABLET BY TAKE 1 Spo rts MOUTH AT MOUTH AT TABLET BY Me dicin BEDTIME BEDTIME MOUTH AT e BEDTIME topiramate topiramate No topiramate L[facility] 25 mg 25 mg 25 mg [facility] tablet TAKE tablet TAKE tablet dic 1 TABLET BY 1 TABLET BY TAKE 1 Sports MOUTH TWICE MOUTH TWICE TABLET BY Medicin DAILY DAILY MOUTH e TWICE DAILY tramadol 50 tramadol 50 No tramadol [facility] mg tablet mg tablet 50 mg [facility] Take 1 Take 1 tablet dic tablet tablet Take 1 Sports every 6 every 6 tablet Medicin hours by hours by every 6 e oral route oral route hours by as needed as needed oral route for 7 days. for 7 days. as needed for 7 days. Xarelto 10 Xarelto 10 No Xarelto 10 [facility] mg tablet mg tablet mg tablet [facility] TAKE ONE TAKE ONE TAKE ONE dic (1) (1) (1) Sports TABLET(S) TABLET(S) TABLET(S) Medicin BY MOUTH BY MOUTH BY MOUTH e ONCE A DAY. ONCE A DAY. ONCE A DAY. albuterol albuterol No albuterol [facility] sulfate 2.5 sulfate 2.5 sulfate [facility] mg/3 mL mg/3 mL 2.5 mg/3 dic (0.083 %) (0.083 %) mL (0.083 [facility] solution solution %) Medicin for for solution e nebulizatio nebulizatio for n n nebulizati on alendronate alendronate No alendronat [facility] 70 mg 70 mg e 70 mg [facility] tablet tablet tablet dic [facility] Medic[facility] e amlodipine amlodipine No amlodipine [facility] 10 mg 10 mg 10 mg [facility] tablet tablet tablet dic [facility] Medicin e amlodipine amlodipine No amlodipine [facility] 5 mg tablet 5 mg tablet 5 mg [facility] TAKE 1 TAKE 1 tablet dic TABLET BY TABLET BY TAKE 1 Spo rts MOUTH EVERY MOUTH EVERY TABLET BY Medicin DAY DAY MOUTH e EVERY DAY aspirin 81 aspirin 81 No 1 BID aspirin 81 [facility] mg chewable mg chewable mg [facility] tablet Chew tablet Chew chewable dic 1 tablet 1 tablet tablet Sport s twice a day twice a day Chew 1 Medicin by oral by oral tablet e route as route as twice a directed directed day by for 30 for 30 oral route days. days. as directed for 30 days. cephalexin cephalexin No cephalexin [facility] 500 mg 500 mg 500 mg [facility] capsule capsule capsule dic [facility] Medicin e clonazepam clonazepam No clonazepam [facility] 1 mg tablet 1 mg tablet 1 mg [facility] TAKE 1 TAKE 1 tablet dic TABLET BY TABLET BY TAKE 1 Spo rts MOUTH THREE MOUTH THREE TABLET BY Medicin TIMES DAILY TIMES DAILY MOUTH e THREE TIMES DAILY cyanocobala cyanocobala No cyanocobal [facility] min (vit min (vit luevano (vit [facility] B-12) 1,000 B-12) 1,000 B-12) dic mcg/mL mcg/mL 1,000 [facility] injection injection mcg/mL Med ic[facility] solution solution injection e INJECT 1ML INJECT 1ML solution ONCE A ONCE A INJECT 1ML MONTH MONTH ONCE A MONTH Dayvigo 5 Dayvigo 5 No Dayvigo 5 [facility] mg tablet mg tablet mg tablet [facility] e doxycycline doxycycline No doxycyclin L[facility] hyclate 100 hyclate 100 e hyclate [facility] mg capsule mg capsule 100 mg d ic Take 1 Take 1 capsule [facility] capsule capsule Take 1 Medicin twice a day twice a day capsule e by oral by oral twice a route as route as day by directed directed oral route for 7 days. for 7 days. as directed for 7 days. fentanyl 50 fentanyl 50 No fentanyl [facility] mcg/hr mcg/hr 50 mcg/hr [facility] e transdermal transdermal transderma dic patch APPLY patch APPLY l patch [facility] ONE PATCH ONE PATCH APPLY ONE Medicin TO SKIN TO SKIN PATCH TO e EVERY 72 EVERY 72 SKIN EVERY HOURS HOURS 72 HOURS hydrocodone hydrocodone No hydrocodon [facility] 10 10 e 10 [facility] mg-acetamin mg-acetamin mg-acetami dic ophen 325 ophen 325 nophen 325 [facility] mg tablet mg tablet mg tablet Medicin Take 1 Take 1 Take 1 e tablet tablet tablet every 6 every 6 every 6 hours by hours by hours by oral route oral route oral route as needed as needed as needed for 7 days. for 7 days. for 7 days. hydrocodone hydrocodone No hydrocodon [facility] 5 5 e 5 [facility] mg-acetamin mg-acetamin mg-acetami dic ophen 325 ophen 325 nophen 325 [facility] mg tablet mg tablet mg tablet Medicin e hydromorpho hydromorpho No hydromorph L[facility] ne 4 mg ne 4 mg one 4 mg [facility] pe tablet tablet tablet dic [facility] Medicin e levofloxaci levofloxaci No levofloxac [facility] n 500 mg n 500 mg in 500 mg Or [facility] tablet tablet tablet dic [facility] Medicin e meloxicam meloxicam No meloxicam [facility] 15 mg 15 mg 15 mg [facility] tablet Take tablet Take tablet dic 1 tablet(s) 1 tablet(s) Take 1 [facility] every day every day tablet(s) Medicin by oral by oral every day e route as route as by oral directed directed route as for 30 for 30 directed days. days. for 30 days. methocarbam methocarbam No methocarba [facility] ol 500 mg ol 500 mg mol 500 mg [facility] tablet Take tablet Take tablet dic 1 tablet 1 tablet Take 1 Sport s every 8 every 8 tablet Medicin hours by hours by every 8 e oral route oral route hours by as needed as needed oral route for 30 for 30 as needed days. days. for 30 days. metoprolol metoprolol No metoprolol [facility] succinate succinate succinate [facility] ER 25 mg ER 25 mg ER 25 mg dic tablet,exte tablet,exte tablet,ext [facility] nded nded ended Medicin release 24 release 24 release 24 e hr hr hr nitroglycer nitroglycer No nitroglyce [facility] in 0.4 mg in 0.4 mg rin 0.4 mg [facility] sublingual sublingual sublingual dic tablet tablet tablet Sports Medicin e ofloxacin ofloxacin No ofloxacin [facility] 0.3 % eye 0.3 % eye 0.3 % eye [facility] drops drops drops dic [facility] Medicin e Robaxin RX Robaxin RX No Robaxin RX [facility] by other by other MD by other [facility] MD bell [facility] Medicin e tizanidine tizanidine No tizanidine [facility] 4 mg tablet 4 mg tablet 4 mg [facility] TAKE 1 TAKE 1 tablet dic TABLET BY TABLET BY TAKE 1 Spo rts MOUTH AT MOUTH AT TABLET BY Me mendoza BEDTIME BEDTIME MOUTH AT e BEDTIME Robaxin RX Robaxin RX No Robaxin RX [facility] by other by other by other [facility] MD bell [facility] Medicin e topiramate topiramate No topiramate [facility] 25 mg 25 mg 25 mg [facility] tablet TAKE tablet TAKE tablet dic 1 TABLET BY 1 TABLET BY TAKE 1 Sports MOUTH TWICE MOUTH TWICE TABLET BY Medicin DAILY DAILY MOUTH e TWICE DAILY tramadol 50 tramadol 50 No tramadol [facility] mg tablet mg tablet 50 mg [facility] Take 1 Take 1 tablet dic tablet tablet Take 1 Sports every 6 every 6 tablet Medicin hours by hours by every 6 e oral route oral route hours by as needed as needed oral route for 7 days. for 7 days. as needed for 7 days. Xarelto 10 Xarelto 10 No Xarelto 10 [facility] mg tablet mg tablet mg tablet [facility] TAKE ONE TAKE ONE TAKE ONE dic (1) (1) (1) Sports TABLET(S) TABLET(S) TABLET(S) Medicin BY MOUTH BY MOUTH BY MOUTH e ONCE A DAY. ONCE A DAY. ONCE A DAY. Robaxin 500 Robaxin 500 No Robaxin [facility] mg tablet 1 mg tablet 1 500 mg [facility] tid tid tablet 1 dic tid Sports Medicin e albuterol albuterol No albuterol [facility] sulfate 2.5 sulfate 2.5 sulfate [facility] mg/3 mL mg/3 mL 2.5 mg/3 dic (0.083 %) (0.083 %) mL (0.083 [facility] solution solution %) Medicin for for solution e nebulizatio nebulizatio for n n nebulizati on albuterol albuterol No albuterol [facility] sulfate HFA sulfate HFA sulfate [facility] 90 90 HFA 90 dic mcg/actuati mcg/actuati mcg/actuat [facility] on aerosol on aerosol ion Med icin inhaler inhaler aerosol e inhaler alendronate alendronate No alendronat [facility] 70 mg 70 mg e 70 mg [facility] tablet tablet tablet dic [facility] Medicin e amlodipine amlodipine No amlodipine [facility] 10 mg 10 mg 10 mg [facility] tablet tablet tablet dic [facility] Medicin e amlodipine amlodipine No amlodipine L[facility] 5 mg tablet 5 mg tablet 5 mg [facility] TAKE 1 TAKE 1 tablet dic TABLET BY TABLET BY TAKE 1 Spo rts MOUTH EVERY MOUTH EVERY TABLET BY Medicin DAY DAY MOUTH e EVERY DAY aspirin 81 aspirin 81 No 1 BID aspirin 81 [facility] mg chewable mg chewable mg [facility] tablet Chew tablet Chew chewable dic 1 tablet 1 tablet tablet [facility] s twice a day twice a day Chew 1 Medicin by oral by oral tablet e route as route as twice a directed directed day by for 30 for 30 oral route days. days. as directed for 30 days. cephalexin cephalexin No cephalexin [facility] 500 mg 500 mg 500 mg [facility] capsule capsule capsule dic [facility] Medicin e clonazepam clonazepam No clonazepam [facility] 1 mg tablet 1 mg tablet 1 mg [facility] TAKE 1 TAKE 1 tablet dic TABLET BY TABLET BY TAKE 1 Spo rts MOUTH THREE MOUTH THREE TABLET BY Medicin TIMES DAILY TIMES DAILY MOUTH e THREE TIMES DAILY cyanocobala cyanocobala No cyanocobal [facility] min (vit min (vit luevano (vit [facility] B-12) 1,000 B-12) 1,000 B-12) dic mcg/mL mcg/mL 1,000 [facility] injection injection mcg/mL Med ic[facility] solution solution injection e INJECT 1ML INJECT 1ML solution ONCE A ONCE A INJECT 1ML MONTH MONTH ONCE A MONTH Dayvigo 5 Dayvigo 5 No Dayvigo 5 [facility] mg tablet mg tablet mg tablet [facility] Medicin e doxycycline doxycycline No doxycyclin [facility] hyclate 100 hyclate 100 e hyclate [facility] mg capsule mg capsule 100 mg d ic Take 1 Take 1 capsule [facility] capsule capsule Take 1 Medicin twice a day twice a day capsule e by oral by oral twice a route as route as day by directed directed oral route for 7 days. for 7 days. as directed for 7 days. fentanyl 50 fentanyl 50 No fentanyl [facility] mcg/hr mcg/hr 50 mcg/hr [facility] e transdermal transdermal transderma dic patch APPLY patch APPLY l patch [facility] ONE PATCH ONE PATCH APPLY ONE Medicin TO SKIN TO SKIN PATCH TO e EVERY 72 EVERY 72 SKIN EVERY HOURS HOURS 72 HOURS hydrocodone hydrocodone No hydrocodon [facility] 10 10 e 10 [facility] mg-acetamin mg-acetamin mg-acetami dic ophen 325 ophen 325 nophen 325 [facility] mg tablet mg tablet mg tablet Medicin Take 1 Take 1 Take 1 e tablet tablet tablet every 6 every 6 every 6 hours by hours by hours by oral route oral route oral route as needed as needed as needed for 7 days. for 7 days. for 7 days. hydrocodone hydrocodone No hydrocodon [facility] 5 5 e 5 [facility] mg-acetamin mg-acetamin mg-acetami dic ophen 325 ophen 325 nophen 325 [facility] mg tablet mg tablet mg tablet Medicin e hydromorpho hydromorpho No hydromorph L[facility] ne 4 mg ne 4 mg one 4 mg [facility] pe tablet tablet tablet dic [facility] Medicin e levofloxaci levofloxaci No levofloxac [facility] n 500 mg n 500 mg in 500 mg [facility] tablet tablet tablet dic [facility] Medicin e meloxicam meloxicam No meloxicam [facility] 15 mg 15 mg 15 mg [facility] tablet Take tablet Take tablet dic 1 tablet(s) 1 tablet(s) Take 1 [facility] every day every day tablet(s) Medicin by oral by oral every day e route as route as by oral directed directed route as for 30 for 30 directed days. days. for 30 days. methocarbam methocarbam No 1 Q8H methocarba [facility] ol 500 mg ol 500 mg mol 500 mg [facility] tablet Take tablet Take tablet dic 1 tablet 1 tablet Take 1 Sport s every 8 every 8 tablet Medicin hours by hours by every 8 e oral route oral route hours by as needed as needed oral route for 30 for 30 as needed days. days. for 30 days. metoprolol metoprolol No metoprolol [facility] succinate succinate succinate [facility] ER 25 mg ER 25 mg ER 25 mg dic tablet,exte tablet,exte tablet,ext [facility] nded nded ended Medicin release 24 release 24 release 24 e hr hr hr nitroglycer nitroglycer No nitroglyce [facility] in 0.4 mg in 0.4 mg rin 0.4 mg [facility] sublingual sublingual sublingual dic tablet tablet tablet Sports Medicin e ofloxacin ofloxacin No ofloxacin [facility] 0.3 % eye 0.3 % eye 0.3 % eye [facility] drops drops drops dic [facility] Medicin e Robaxin RX Robaxin RX No Robaxin RX [facility] by other MD by other MD by other [facility] MD dic [facility] Medicin e tizanidine tizanidine No tizanidine [facility] 4 mg tablet 4 mg tablet 4 mg [facility] TAKE 1 TAKE 1 tablet dic TABLET BY TABLET BY TAKE 1 Spo rts MOUTH AT MOUTH AT TABLET BY dicin BEDTIME BEDTIME MOUTH AT e BEDTIME topiramate topiramate No topiramate L[facility] 25 mg 25 mg 25 mg [facility] tablet TAKE tablet TAKE tablet dic 1 TABLET BY 1 TABLET BY TAKE 1 Sports MOUTH TWICE MOUTH TWICE TABLET BY Medicin DAILY DAILY MOUTH e TWICE DAILY tramadol 50 tramadol 50 No tramadol [facility] mg tablet mg tablet 50 mg [facility] Take 1 Take 1 tablet dic tablet tablet Take 1 Sports every 6 every 6 tablet Medicin hours by hours by every 6 e oral route oral route hours by as needed as needed oral route for 7 days. for 7 days. as needed for 7 days. Xarelto 10 Xarelto 10 No Xarelto 10 [facility] mg tablet mg tablet mg tablet [facility] TAKE ONE TAKE ONE TAKE ONE dic (1) (1) (1) Sports TABLET(S) TABLET(S) TABLET(S) Medicin BY MOUTH BY MOUTH BY MOUTH e ONCE A DAY. ONCE A DAY. ONCE A DAY. albuterol albuterol No albuterol [facility] sulfate 2.5 sulfate 2.5 sulfate [facility] mg/3 mL mg/3 mL 2.5 mg/3 dic (0.083 %) (0.083 %) mL (0.083 [facility] solution solution %) Medicin for for solution e nebulizatio nebulizatio for n n nebulizati on albuterol albuterol No albuterol [facility] sulfate HFA sulfate HFA sulfate [facility] 90 90 HFA 90 dic mcg/actuati mcg/actuati mcg/actuat [facility] on aerosol on aerosol ion Med icin inhaler inhaler aerosol e inhaler alendronate alendronate No alendronat [facility] 70 mg 70 mg e 70 mg [facility] tablet tablet tablet dic [facility] Medicin e amlodipine amlodipine No amlodipine [facility] 10 mg 10 mg 10 mg [facility] tablet tablet tablet dic [facility] Medicin e amlodipine amlodipine No amlodipine L[facility] 5 mg tablet 5 mg tablet 5 mg [facility] TAKE 1 TAKE 1 tablet dic TABLET BY TABLET BY TAKE 1 Spo rts MOUTH EVERY MOUTH EVERY TABLET BY Medicin DAY DAY MOUTH e EVERY DAY aspirin 81 aspirin 81 No 1 BID aspirin 81 [facility] mg chewable mg chewable mg [facility] tablet Chew tablet Chew chewable dic 1 tablet 1 tablet tablet Sport s twice a day twice a day Chew 1 Medicin by oral by oral tablet e route as route as twice a directed directed day by for 30 for 30 oral route days. days. as directed for 30 days. cephalexin cephalexin No cephalexin [facility] 500 mg 500 mg 500 mg [facility] capsule capsule capsule dic [facility] Medicin e clonazepam clonazepam No clonazepam [facility] 1 mg tablet 1 mg tablet 1 mg [facility] TAKE 1 TAKE 1 tablet dic TABLET BY TABLET BY TAKE 1 Spo rts MOUTH THREE MOUTH THREE TABLET BY Medicin TIMES DAILY TIMES DAILY MOUTH e THREE TIMES DAILY cyanocobala cyanocobala No cyanocobal [facility] min (vit min (vit luevano (vit [facility] B-12) 1,000 B-12) 1,000 B-12) dic mcg/mL mcg/mL 1,000 [facility] injection injection mcg/mL Med icin solution solution injection e INJECT 1ML INJECT 1ML solution ONCE A ONCE A INJECT 1ML MONTH MONTH ONCE A MONTH Dayvigo 5 Dayvigo 5 No Dayvigo 5 [facility] mg tablet mg tablet mg tablet [facility] dic [facility] Medicin e doxycycline doxycycline No doxycyclin L[facility] hyclate 100 hyclate 100 e hyclate [facility] mg capsule mg capsule 100 mg d ic Take 1 Take 1 capsule [facility] capsule capsule Take 1 Medicin twice a day twice a day capsule e by oral by oral twice a route as route as day by directed directed oral route for 7 days. for 7 days. as directed for 7 days. fentanyl 50 fentanyl 50 No fentanyl [facility] mcg/hr mcg/hr 50 mcg/hr [facility] e transdermal transdermal transderma dic patch APPLY patch APPLY l patch Sports ONE PATCH ONE PATCH APPLY ONE Medicin TO SKIN TO SKIN PATCH TO e EVERY 72 EVERY 72 SKIN EVERY HOURS HOURS 72 HOURS hydrocodone hydrocodone No hydrocodon [facility] 10 10 e 10 [facility] mg-acetamin mg-acetamin mg-acetami dic ophen 325 ophen 325 nophen 325 [facility] mg tablet mg tablet mg tablet Medicin Take 1 Take 1 Take 1 e tablet tablet tablet every 6 every 6 every 6 hours by hours by hours by oral route oral route oral route as needed as needed as needed for 7 days. for 7 days. for 7 days. hydrocodone hydrocodone No hydrocodon [facility] 5 5 e 5 [facility] mg-acetamin mg-acetamin mg-acetami dic ophen 325 ophen 325 nophen 325 [facility] mg tablet mg tablet mg tablet Medicin e hydromorpho hydromorpho No hydromorph L[facility] ne 4 mg ne 4 mg one 4 mg [facility] pe tablet tablet tablet dic Sports Medicin e levofloxaci levofloxaci No levofloxac [facility] n 500 mg n 500 mg in 500 mg Or [facility]ope tablet tablet tablet dic [facility] Medicin e meloxicam meloxicam No meloxicam [facility] 15 mg 15 mg 15 mg [facility] tablet Take tablet Take tablet dic 1 tablet(s) 1 tablet(s) Take 1 [facility] every day every day tablet(s) Medicin by oral by oral every day e route as route as by oral directed directed route as for 30 for 30 directed days. days. for 30 days. methocarbam methocarbam No 1 Q8H methocarba [facility] ol 500 mg ol 500 mg mol 500 mg [facility] tablet Take tablet Take tablet dic 1 tablet 1 tablet Take 1 Sport s every 8 every 8 tablet Medicin hours by hours by every 8 e oral route oral route hours by as needed as needed oral route for 30 for 30 as needed days. days. for 30 days. metoprolol metoprolol No metoprolol [facility] succinate succinate succinate [facility] ER 25 mg ER 25 mg ER 25 mg dic tablet,exte tablet,exte tablet,ext Sports nded nded ended Medicin release 24 release 24 release 24 e hr hr hr nitroglycer nitroglycer No nitroglyce Livia in 0.4 mg in 0.4 mg rin 0.4 mg [facility] sublingual sublingual sublingual dic tablet tablet tablet Sports Medicin e ofloxacin ofloxacin No ofloxacin Livia 0.3 % eye 0.3 % eye 0.3 % eye [facility] drops drops drops dic Sports Medicin e Robaxin RX Robaxin RX No Robaxin RX Livia by other MD by other MD by other [facility] MD dic Sports Medicin e tizanidine tizanidine No tizanidine Livia 4 mg tablet 4 mg tablet 4 mg O rthope TAKE 1 TAKE 1 tablet dic TABLET BY TABLET BY TAKE 1 Spo rts MOUTH AT MOUTH AT TABLET BY dicin BEDTIME BEDTIME MOUTH AT e BEDTIME topiramate topiramate No topiramate [facility] 25 mg 25 mg 25 mg [facility] tablet TAKE tablet TAKE tablet dic 1 TABLET BY 1 TABLET BY TAKE 1 Sports MOUTH TWICE MOUTH TWICE TABLET BY Medicin DAILY DAILY MOUTH e TWICE DAILY tramadol 50 tramadol 50 No tramadol [facility] mg tablet mg tablet 50 mg Orth ope Take 1 Take 1 tablet dic tablet tablet Take 1 Sports every 6 every 6 tablet Medicin hours by hours by every 6 e oral route oral route hours by as needed as needed oral route for 7 days. for 7 days. as needed for 7 days. Xarelto 10 Xarelto 10 No Xarelto 10 [facility]ivia mg tablet mg tablet mg tablet [facility] TAKE ONE TAKE ONE TAKE ONE dic (1) (1) (1) Sports TABLET(S) TABLET(S) TABLET(S) Medicin BY MOUTH BY MOUTH BY MOUTH e ONCE A DAY. ONCE A DAY. ONCE A DAY. albuterol albuterol No albuterol [facility] sulfate 2.5 sulfate 2.5 sulfate [facility] mg/3 mL mg/3 mL 2.5 mg/3 dic (0.083 %) (0.083 %) mL (0.083 Sports solution solution %) Medicin for for solution e nebulizatio nebulizatio for n n nebulizati on alendronate alendronate No alendronat [facility]ivia 70 mg 70 mg e 70 mg [facility] tablet tablet tablet dic Sports Medicin e amlodipine amlodipine No amlodipine [facility] 10 mg 10 mg 10 mg [facility] tablet tablet tablet dic Sports Medicin e amlodipine amlodipine No amlodipine Livia 5 mg tablet 5 mg tablet 5 mg O rthope TAKE 1 TAKE 1 tablet dic TABLET BY TABLET BY TAKE 1 Spo rts MOUTH EVERY MOUTH EVERY TABLET BY Medicin DAY DAY MOUTH e EVERY DAY aspirin 81 aspirin 81 No 1 BID aspirin 81 Livia mg chewable mg chewable mg O rthope tablet Chew tablet Chew chewable dic 1 tablet 1 tablet tablet Sport s twice a day twice a day Chew 1 Medicin by oral by oral tablet e route as route as twice a directed directed day by for 30 for 30 oral route days. days. as directed for 30 days. cephalexin cephalexin No cephalexin [facility] 500 mg 500 mg 500 mg [facility] capsule capsule capsule dic Sports Medicin e clonazepam clonazepam No clonazepam [facility] 1 mg tablet 1 mg tablet 1 mg O rthope TAKE 1 TAKE 1 tablet dic TABLET BY TABLET BY TAKE 1 Spo rts MOUTH THREE MOUTH THREE TABLET BY Medicin TIMES DAILY TIMES DAILY MOUTH e THREE TIMES DAILY cyanocobala cyanocobala No cyanocobal [facility] min (vit min (vit luevano (vit Or thope B-12) 1,000 B-12) 1,000 B-12) dic mcg/mL mcg/mL 1,000 Sports injection injection mcg/mL Med icin solution solution injection e INJECT 1ML INJECT 1ML solution ONCE A ONCE A INJECT 1ML MONTH MONTH ONCE A MONTH Dayvigo 5 Dayvigo 5 No Dayvigo 5 Livia mg tablet mg tablet mg tablet [facility] dic Sports Medicin e doxycycline doxycycline No doxycyclin [facility] hyclate 100 hyclate 100 e hyclate [facility] mg capsule mg capsule 100 mg d ic Take 1 Take 1 capsule Sports capsule capsule Take 1 Medicin twice a day twice a day capsule e by oral by oral twice a route as route as day by directed directed oral route for 7 days. for 7 days. as directed for 7 days. fentanyl 50 fentanyl 50 No fentanyl [facility]ivia mcg/hr mcg/hr 50 mcg/hr Orthop e transdermal transdermal transderma dic patch APPLY patch APPLY l patch Sports ONE PATCH ONE PATCH APPLY ONE Medicin TO SKIN TO SKIN PATCH TO e EVERY 72 EVERY 72 SKIN EVERY HOURS HOURS 72 HOURS hydrocodone hydrocodone No hydrocodon [facility] 10 10 e 10 [facility] mg-acetamin mg-acetamin mg-acetami dic ophen 325 ophen 325 nophen 325 Sports mg tablet mg tablet mg tablet Medicin Take 1 Take 1 Take 1 e tablet tablet tablet every 6 every 6 every 6 hours by hours by hours by oral route oral route oral route as needed as needed as needed for 7 days. for 7 days. for 7 days. hydromorpho hydromorpho No hydromorph [facility] ne 4 mg ne 4 mg one 4 mg Ortho pe tablet tablet tablet dic Sports Medicin e meloxicam meloxicam No meloxicam [facility] 15 mg 15 mg 15 mg [facility] tablet Take tablet Take tablet dic 1 tablet 1 tablet Take 1 Sport s every day every day tablet Med icin by oral by oral every day e route as route as by oral directed directed route as for 30 for 30 directed days. days. for 30 days. methocarbam methocarbam No methocarba [facility] ol 500 mg ol 500 mg mol 500 mg [facility] tablet Take tablet Take tablet dic by oral by oral Take by Sports route for route for oral route Medicin 15 days. 15 days. for 15 e days. metoprolol metoprolol No metoprolol [facility] succinate succinate succinate [facility] ER 25 mg ER 25 mg ER 25 mg dic tablet,exte tablet,exte tablet,ext Sports nded nded ended Medicin release 24 release 24 release 24 e hr hr hr nitroglycer nitroglycer No nitroglyce [facility] in 0.4 mg in 0.4 mg rin 0.4 mg [facility] sublingual sublingual sublingual dic tablet tablet tablet Sports Medicin e Robaxin RX Robaxin RX No Robaxin RX [facility]ivia by other MD by other MD by other [facility] MD dic Sports Medicin e tizanidine tizanidine No tizanidine [facility] 4 mg tablet 4 mg tablet 4 mg O rthope TAKE 1 TAKE 1 tablet dic TABLET BY TABLET BY TAKE 1 Spo rts MOUTH AT MOUTH AT TABLET BY Me dicin BEDTIME BEDTIME MOUTH AT e BEDTIME topiramate topiramate No topiramate L[facility] 25 mg 25 mg 25 mg [facility] tablet TAKE tablet TAKE tablet dic 1 TABLET BY 1 TABLET BY TAKE 1 Sports MOUTH TWICE MOUTH TWICE TABLET BY Medicin DAILY DAILY MOUTH e TWICE DAILY tramadol 50 tramadol 50 No tramadol [facility] mg tablet mg tablet 50 mg Orth ope Take 1 Take 1 tablet dic tablet tablet Take 1 Sports every 6 every 6 tablet Medicin hours by hours by every 6 e oral route oral route hours by as needed as needed oral route for 7 days. for 7 days. as needed for 7 days. Xarelto 10 Xarelto 10 No Xarelto 10 [facility] mg tablet mg tablet mg tablet [facility] TAKE ONE TAKE ONE TAKE ONE dic (1) (1) (1) Sports TABLET(S) TABLET(S) TABLET(S) Medicin BY MOUTH BY MOUTH BY MOUTH e ONCE A DAY. ONCE A DAY. ONCE A DAY. albuterol albuterol No albuterol [facility] sulfate 2.5 sulfate 2.5 sulfate [facility] mg/3 mL mg/3 mL 2.5 mg/3 dic (0.083 %) (0.083 %) mL (0.083 Sports solution solution %) Medicin for for solution e nebulizatio nebulizatio for n n nebulizati on alendronate alendronate No alendronat [facility] 70 mg 70 mg e 70 mg [facility] tablet tablet tablet dic Sports Medicin e amlodipine amlodipine No amlodipine [facility] 10 mg 10 mg 10 mg [facility] tablet tablet tablet dic Sports Medicin e amlodipine amlodipine No amlodipine Livia 5 mg tablet 5 mg tablet 5 mg O rthope TAKE 1 TAKE 1 tablet dic TABLET BY TABLET BY TAKE 1 Spo rts MOUTH EVERY MOUTH EVERY TABLET BY Medicin DAY DAY MOUTH e EVERY DAY aspirin 81 aspirin 81 No 1 BID aspirin 81 Livia mg chewable mg chewable mg O rthope tablet Chew tablet Chew chewable dic 1 tablet 1 tablet tablet Sport s twice a day twice a day Chew 1 Medicin by oral by oral tablet e route as route as twice a directed directed day by for 30 for 30 oral route days. days. as directed for 30 days. cephalexin cephalexin No cephalexin [facility] 500 mg 500 mg 500 mg [facility] capsule capsule capsule dic Sports Medicin e clonazepam clonazepam No clonazepam Livia 1 mg tablet 1 mg tablet 1 mg O rthope TAKE 1 TAKE 1 tablet dic TABLET BY TABLET BY TAKE 1 Spo rts MOUTH THREE MOUTH THREE TABLET BY Medicin TIMES DAILY TIMES DAILY MOUTH e THREE TIMES DAILY cyanocobala cyanocobala No cyanocobal [facility] min (vit min (vit luevano (vit Or thope B-12) 1,000 B-12) 1,000 B-12) dic mcg/mL mcg/mL 1,000 Sports injection injection mcg/mL Med icin solution solution injection e INJECT 1ML INJECT 1ML solution ONCE A ONCE A INJECT 1ML MONTH MONTH ONCE A MONTH Dayvigo 5 Dayvigo 5 No Dayvigo 5 Livia mg tablet mg tablet mg tablet [facility] dic Sports Medicin e doxycycline doxycycline No doxycyclin Livia hyclate 100 hyclate 100 e hyclate [facility] mg capsule mg capsule 100 mg d ic Take 1 Take 1 capsule Sports capsule capsule Take 1 Medicin twice a day twice a day capsule e by oral by oral twice a route as route as day by directed directed oral route for 7 days. for 7 days. as directed for 7 days. fentanyl 50 fentanyl 50 No fentanyl Livia mcg/hr mcg/hr 50 mcg/hr Orth[facility] e transdermal transdermal transderma dic patch APPLY patch APPLY l patch Sports ONE PATCH ONE PATCH APPLY ONE Medicin TO SKIN TO SKIN PATCH TO e EVERY 72 EVERY 72 SKIN EVERY HOURS HOURS 72 HOURS hydrocodone hydrocodone No hydrocodon [facility]ivia 10 10 e 10 [facility] mg-acetamin mg-acetamin mg-acetami dic ophen 325 ophen 325 nophen 325 Sports mg tablet mg tablet mg tablet Medicin Take 1 Take 1 Take 1 e tablet tablet tablet every 6 every 6 every 6 hours by hours by hours by oral route oral route oral route as needed as needed as needed for 7 days. for 7 days. for 7 days. hydrocodone hydrocodone No hydrocodon [facility] 5 5 e 5 [facility] mg-acetamin mg-acetamin mg-acetami dic ophen 325 ophen 325 nophen 325 Sports mg tablet mg tablet mg tablet Medicin e hydromorpho hydromorpho No hydromorph Livia ne 4 mg ne 4 mg one 4 mg Ortho pe tablet tablet tablet dic Sports Medicin e Immunizations Ordered Filled Immunization Date Status Comments [facility] e Immunization Name Name SARS-COV-2 COVID-19 2020-07-07 Completed Unive rsity of MODER[facility] VACCINE 00:00:00 [facility] SARS-COV-2 COVID-19 2020-07-07 Completed Unive rsity of MODERNA VACCINE 00:00:00 [facility] SARS-COV-2 COVID-19 2020-07-07 Completed Unive rsity of MODERNA VACCINE 00:00:00 [facility] SARS-COV-2 COVID-19 2020-07-07 Completed Unive rsity of MODERNA 12+ YRS 00:00:00 [facility] ical VACCINE Branch SARS-COV-2 COVID-19 2020-07-07 Completed Unive rsity of MODERNA 12+ YRS 00:00:00 [facility] ical VACCINE Branch SARS-COV-2 COVID-19 2020-07-07 Completed Unive rsity of MODERNA 12+ YRS 00:00:00 [facility] ical VACCINE Branch SARS-COV-2 COVID-19 2020-07-07 Completed Unive rsity of MODERNA 12+ YRS 00:00:00 [facility] ical VACCINE Branch SARS-COV-2 COVID-19 2020-07-07 Completed Unive rsity of MODERNA 12+ YRS 00:00:00 [facility] ical VACCINE Branch SARS-COV-2 COVID-19 2020-07-07 Completed Unive rsity of MODERNA 12+ YRS 00:00:00 [facility] ical VACCINE Branch SARS-COV-2 COVID-19 2020-07-07 Completed Unive rsity of MODERNA 12+ YRS 00:00:00 [place] [facility] SARS-COV-2 COVID-19 2020-07-07 Completed Unive rsity of MODERNA 12+ YRS 00:00:00 [place] [facility]ACCINE [facility] SARS-COV-2 COVID-19 2020-07-07 Completed Unive rsity of MODERNA 12+ YRS 00:00:00 [place] [facility]INE [facility] SARS-COV-2 COVID-19 2020-07-07 Completed Unive rsity of MODERNA 12+ YRS 00:00:00 [place] [facility]INE [facility] SARS-COV-2 COVID-19 2020-07-07 Completed Unive rsity of MODERNA 12+ YRS 00:00:00 [place] [facility]INE [facility] SARS-COV-2 COVID-19 2020-07-07 Completed Unive rsity of MODERNA 12+ YRS 00:00:00 [place] [facility]ACCINE [facility] SARS-COV-2 COVID-19 2020-06-09 Completed Unive rsity of MODERNA VACCINE 00:00:00 [place] [facility] SARS-COV-2 COVID-19 2020-06-09 Completed Unive rsity of MODERNA VACCINE 00:00:00 [place] [facility] SARS-COV-2 COVID-19 2020-06-09 Completed Unive rsity of MODERNA VACCINE 00:00:00 [place] [facility] SARS-COV-2 COVID-19 2020-06-09 Completed Unive rsity of MODERNA 12+ YRS 00:00:00 [place] [facility] VACCINE [facility] SARS-COV-2 COVID-19 2020-06-09 Completed Unive rsity of MODERNA 12+ YRS 00:00:00 [place] [facility] VACCINE [facility] SARS-COV-2 COVID-19 2020-06-09 Completed Unive rsity of MODERNA 12+ YRS 00:00:00 [place] [facility] VACCINE [facility] SARS-COV-2 COVID-19 2020-06-09 Completed Unive rsity of MODERNA 12+ YRS 00:00:00 [place] [facility] VACCINE [facility] SARS-COV-2 COVID-19 2020-06-09 Completed Unive rsity of MODERNA 12+ YRS 00:00:00 [place] [facility]ACCINE [facility] SARS-COV-2 COVID-19 2020-06-09 Completed Unive rsity of MODERNA 12+ YRS 00:00:00 [place] [facility] VACCINE [facility] SARS-COV-2 COVID-19 2020-06-09 Completed Unive rsity of MODERNA 12+ YRS 00:00:00 [place] [facility] VACCINE [facility] SARS-COV-2 COVID-19 2020-06-09 Completed Unive rsity of MODERNA 12+ YRS 00:00:00 [place] [facility] VACCINE [facility] SARS-COV-2 COVID-19 2020-06-09 Completed Unive rsity of MODERNA 12+ YRS 00:00:00 [place] [facility] VACCINE [facility] SARS-COV-2 COVID-19 2020-06-09 Completed Unive rsity of MODERNA 12+ YRS 00:00:00 [place] [facility] VACCINE [facility] SARS-COV-2 COVID-19 2020-06-09 Completed Unive rsity of MODERNA 12+ YRS 00:00:00 [place] [facility] VACCINE [facility] SARS-COV-2 COVID-19 2020-06-09 Completed Unive rsity of MODERNA 12+ YRS 00:00:00 [place] [facility] VACCINE [facility] Vital Signs Vital Name Observation Time Observation Value Comments Source Height 2022-06-14 00:00:00 68 [in_i] [facility] BMI (Body Mass 2022-06-14 00:00:00 25.8 kg/m2 [facility] Index) Sports Medicine Body Weight 2022-06-14 00:00:00 170 [lb_av] [facility] Height 2022-04-28 00:00:00 68 [in_i] [facility] BMI (Body Mass 2022-04-28 00:00:00 25.8 kg/m2 [facility] Index) Sports Medicine Body Weight 2022-04-28 00:00:00 170 [lb_av] [facility] Height 2022-03-15 00:00:00 68 [in_i] [facility] BMI (Body Mass 2022-03-15 00:00:00 25.8 kg/m2 [facility] Index) Sports Medicine Body Weight 2022-03-15 00:00:00 170 [lb_av] [facility] Height 2022-02-15 00:00:00 68 [in_i] [facility] BMI (Body Mass 2022-02-15 00:00:00 25.8 kg/m2 [facility] Index) Sports Medicine Body Weight 2022-02-15 00:00:00 170 [lb_av] [facility] Systolic blood 2021-12-29 17:53:00 107 mm[Hg] Univer sity of pressure [facility] Diastolic blood 2021-12-29 17:53:00 67 mm[Hg] Unive rsity of pressure [facility] Heart rate 2021-12-29 17:53:00 74 /min [facility] Body temperature 2021-12-29 17:53:[address] [facility] Respiratory rate 2021-12-29 17:53:00 18 /min [facility] Body height 2021-12-29 17:53:00 172.7 cm per pt [facility] Body weight 2021-12-29 17:53:00 81.965 kg Univers[facility] BMI 2021-12-29 17:53:00 27.48 kg/m2 [facility] Oxygen saturation in 2021-12-29 17:53:00 99 /min [facility] Arterial blood by [facility] Pulse oximetry Branch Height 2021-11-02 00:00:00 68 [in_i] [facility] BMI (Body Mass 2021-11-02 00:00:00 25.8 kg/m2 [facility] Index) Sports Medicine Body Weight 2021-11-02 00:00:00 170 [lb_av] [facility] Systolic blood 2021-10-20 15:53:00 160 mm[Hg] Univer sity of [facility] Diastolic blood 2021-10-20 15:53:00 78 mm[Hg] Unive rsity of pressure [facility] Heart rate 2021-10-20 15:50:00 82 /min [facility]i [facility] of [facility] Body temperature 2021-10-20 15:50:00 36.89 Sonam [facility] Respiratory rate 2021-10-20 15:50:00 17 /min [facility] Body height 2021-10-20 15:50:00 172.7 cm [facility] Body weight 2021-10-20 15:50:00 77.565 kg [facility] BMI 2021-10-20 15:50:00 26.00 kg/m2 [facility] Oxygen saturation in 2021-10-20 15:50:00 98 /min [facility] Arterial blood by [facility] Pulse oximetry Branch height 2021-09-06 08:30:00 68 [in_i] [facility] weight 2021-09-06 08:30:00 173.3 [lb_av] [facility] bmi 2021-09-06 08:30:00 26.35 kg/m2 [facility] blood pressure 2021-09-06 08:30:00 144 mm[Hg] [facility] blood pressure 2021-09-06 08:30:00 84 mm[Hg] [facility] diastolic [facility] height 2021-07-07 13:30:00 68 [in_i] [facility] weight 2021-07-07 13:30:00 176 [lb_av] [facility] temperature 2021-07-07 13:30:00 97.2 [degF] [facility] bmi 2021-07-07 13:30:00 26.76 kg/m2 [facility] blood pressure 2021-07-07 13:30:00 148 mm[Hg] [facility] systolic [facility] blood pressure 2021-07-07 13:30:00 73 mm[Hg] [facility] diastolic [facility] height 2021-06-07 13:00:00 68 [in_i] [facility] weight 2021-06-07 13:00:00 176 [lb_av] [facility] temperature 2021-06-07 13:00:00 96.8 [degF] Common [facility] bmi 2021-06-07 13:00:00 26.76 kg/m2 [facility] blood pressure 2021-06-07 13:00:00 124 mm[Hg] [facility] systolic [facility] blood pressure 2021-06-07 13:00:00 76 mm[Hg] [facility] diastolic [facility] Systolic blood 2021-05-09 16:22:00 153 mm[Hg] Univer sity of [facility] Diastolic blood 2021-05-09 16:22:00 73 mm[Hg] Unive rsity [facility] Heart rate 2021-05-09 16:22:00 69 /min [facility] Respiratory rate 2021-05-09 16:21:00 19 /min [facility] Body height 2021-05-09 16:21:00 172.7 cm [facility] Body weight 2021-05-09 16:21:00 81.285 kg [facility] BMI 2021-05-09 16:21:00 27.25 kg/m2 [facility] Oxygen saturation in 2021-05-09 16:21:00 100 /min [facility] Arterial blood by [facility] Pulse oximetry Branch Procedures Procedure Date / Time Performing Clinician Source Performed XR, femur, 2 or more 2022-06-14 00:00:00 [facility] view [facility] Medicine XR, hip + pelvis, 2022-06-14 00:00:00 Livia Ort hopedic unilateral, 2 or 3 view Sports M edicine XR, hip + pelvis, 2022-03-15 00:00:00 Livia Ort hopedic unilateral, 2 or [address], lower extremity, 2022-03-15 00:00:00 [facility] w/o contrast Sports Medicine XR, hip + pelvis, 2022-02-15 00:00:00 [facility] Ort hopedic unilateral, 2 or 3 view Sports M edicine [id number] 2022-01-20 00:00:00 MATVA.01 [facility] [id number] 2022-01-20 00:00:00 MATVA.01 [facility] [id number] 2022-01-19 00:00:00 BRIMA.01 [facility] [id number] 2022-01-19 00:00:00 MATVA.01 [facility] [id number] 2022-01-19 00:00:00 MATVA.01 [facility] [id number] 2022-01-19 00:00:00 MATVA.01 [facility] Revise Hip Joint 2022-01-19 00:00:00 [facility]edic Replacement Sports Medicine ASSIGNMENT OF BENEFITS 2021-12-29 17:31:06 Doctor Unassigned, No [facility] Medical Branch MEDICAL 2021-12-14 05:01:00 Doctor Unassigned, No [facility] RELEASE/CLEARANCE FORMS [facility] NOTICE OF BILLING 2021-12-08 14:33:50 Doctor Unassigned, No [facility] PRACTICES FOR MEDICARE Name Medical B ranch PATIENTS MEDICAL 2021-11-25 05:01:00 Doctor Unassigned, No [facility] RELEASE/CLEARANCE FORMS [facility] XR, hip + pelvis, 2021-11-02 00:00:00 Livia Landry hopedic unilateral, 2 or 3 view Sports edicine POCT URINALYSIS 2021-10-20 15:58:00 Kelly Avalos [place] [facility] HB ECG ROUTINE & RHYTHM 2021-05-09 16:14:24 Maricarmen Nguyen [facility] Plan of Care Planned Activity Planned Date Details Comments Source Future Appointment 2022-09-20 Juan Francisco Wilder ea Orthopedic 10:00:00 [address] [facility] , [place] [address] Future Appointment 2022-08-16 Vineet Weeks, [address] [facility] Orthopedic 10:15:00 [facility] [place] [facility] [place] [id number] Instructions [facility] Medicine Encounters Start End Encounter Admission Attending Care Care Encounter Source Date/Time Date/Time Type Type Clinicians Facility Department ID 2021-10-10 Outpatient Cole, STLMLC [facility] [id number] Common 12:15:00 Patric Henry [facility] 2021-09-06 Outpatient Cole, STLMLC [facility] [id number] Common 08:26:01 Patric Henry [facility] 2021-06-07 Outpatient Cole, STLMLC [facility] [id number] Common 14:54:02 Patric Henry [facility] 2021-05-23 Outpatient Cole, STLMLC [facility] [id number] Common 15:27:02 Patric Henry [facility] 2021-04-06 Outpatient Cole, STLMLC [facility] [id number] Common 12:20:03 Patric [id number] Henry Mayo [facility] 2021-04-06 Outpatient Cole, STLMLC [facility] [id number] Common 11:34:20 Patric [id number] Henry Mayo [facility] 2021-03-07 Inpatient OLGA LIDIA Linares, [facility] [id number] [facility] 10:45:[address] 2021-01-12 Outpatient [facility] [id number] [place] 13:28:28 [facility] 2021-01-10 Outpatient MAXINE, [facility] [id number] [place] 11:46:45 [facility]ly [facility] 2021-01-08 Emergency [facility] [id number] Univers 23:01:54 [facility] 2021-01-08 Emergency [facility] [id number] Univers 20:27:01 [facility] 2022-07-19 2022-07-19 Outpatient FOG_Mathews AOSM AOSM [id number] Livia 00:00:00 00:00:00 _Domitila [id number] [facility] e 2022-07-19 2022-07-19 Outpatient FOG_Mathews AOSM AOSM [id number] Livia 00:00:00 00:00:00 _Domitila [id number] Orth ope dic Sports Medicin e 2022-07-11 2022-07-11 Outpatient FOG_Mathews AOSM AOSM [id number] Livia 00:00:00 00:00:00 _Domitila [id number] Orth ope dic Sports Medicin e 2022-06-16 2022-06-16 Outpatient FOG_Mathews AOSM AOSM [id number] Livia 00:00:00 00:00:00 _Domitila [id number] Orth ope dic Sports Medicin e 2022-06-14 2022-06-14 Fabricio AOSM [place] - Ortho 05 Livia 00:00:00 00:00:00 Swathi Cartagena MD: [id number] FOG_Ofc dic [facility] Spo [facility], [place] [address] , Ph. [phone] 2022-06-10 2022-06-10 Outpatient FOG_Mathews AOSM AOSM [id number] Livia 00:00:00 00:00:00 _Domitila [id number] Orth ope dic Sports Medicin e 2022-06-10 2022-06-10 Outpatient FOG_Mathews AOSM AOSM [id number] Livia 00:00:00 00:00:00 _Domitila [id number] Orth ope dic Sports Medicin e 2022-06-10 2022-06-10 Outpatient FOG_Mathews AOSM AOSM [id number] Livia 00:00:00 00:00:00 _Domitila [id number] Orth ope dic Sports Medicin e 2022-05-30 2022-05-30 Outpatient FOG_Mathews AOSM AOSM [id number] Livia 00:00:00 00:00:00 _Domitila [id number] Orth ope dic Sports Medicin e 2022-05-12 2022-05-12 Outpatient FOG_Mathews AOSM AOSM [id number] Livia 00:00:00 00:00:00 _Domitila [id number] Orth ope dic Sports Medicin e 2022-05-08 2022-05-08 Outpatient FOG_Mathews AOSM AOSM [id number] Livia 00:00:00 00:00:00 _Domitila [id number] Orth ope dic Sports Medicin e 2022-05-08 2022-05-08 Outpatient FOG_Mathews AOSM AOSM [id number] Livia 00:00:00 00:00:00 _Domitila [id number] Orth ope dic Sports Medicin e 2022-05-03 2022-05-03 Outpatient FOG_Mathews AOSM AOSM [id number] Livia 00:00:00 00:00:00 _Domitila [id number] Orth ope dic Sports Medicin e 2022-05-02 2022-05-02 Outpatient FOG_Mathews AOSM AOSM 557 1276-20 Livia 00:00:00 00:00:00 _Domitila [id number] [facility] 2022-04-28 2022-04-28 Vineet AOSM [place] - Ortho [id number] 7 Livia 00:00:00 00:00:00 Swathi Weeks MD: 7401 FOG_Ofc dic [facility], [place] [address] , Ph. [phone] 2022-04-19 2022-04-19 Outpatient FOG_Mathews AOSM AOSM 557 1276-20 Livia 00:00:00 00:00:00 _Domitila [id number] Orth ope dic Sports Medicin e 2022-04-19 2022-04-19 Outpatient FOG_Mathews AOSM AOSM 557 1276-20 Livia 00:00:00 00:00:00 _Domitila [id number] Orth ope dic Sports Medicin e 2022-04-19 2022-04-19 Outpatient FOG_Mathews AOSM AOSM 557 1276-20 Livia 00:00:00 00:00:00 _Domitila [id number] Orth ope dic Sports Medicin e 2022-04-19 2022-04-19 Outpatient FOG_Mathews AOSM AOSM 557 1276-20 Livia 00:00:00 00:00:00 _Domitila [id number] Orth ope dic Sports Medicin e 2022-04-11 2022-04-11 Outpatient R PATRICK, [facility] [id number] Univers 10:00:00 10:00:00 LYDIANGJUN ity o f [facility] 2022-03-15 2022-03-15 Outpatient FOG_Mathews AOSM AOSM 557 1276-20 Livia 00:00:00 00:00:00 _Domitila [id number] Orth ope dic Sports Medicin e 2022-03-15 2022-03-15 Fabricio AOSM [place] - Ortho 04 Livia 00:00:00 00:00:00 Swathi Cartagena MD: 7401 FOG_Ofc dic [facility] [place] [place], [place] [address] , Ph. [phone] 2022-03-06 2022-03-06 Outpatient FOG_Mathews AOSM AOSM 557 1276-20 Livia 00:00:00 00:00:00 _Domitila [id number] Orth ope dic Sports Medicin e 2022-03-06 2022-03-06 Outpatient FOG_Mathews AOSM AOSM 557 1276-20 Livia 00:00:00 00:00:00 _Domitila [id number] Orth ope dic Sports Medicin e 2022-03-06 2022-03-06 Outpatient FOG_Mathews AOSM AOSM 557 1276-20 Livia 00:00:00 00:00:00 _Domitila [id number] Orth ope dic Sports Medicin e 2022-02-17 2022-02-17 Outpatient FOG_Mathews AOSM AOSM 557 1276-20 Livia 00:00:00 00:00:00 _Domitila [id number] Orth ope dic Sports Medicin e 2022-02-15 2022-02-15 Outpatient FOG_Mathews AOSM AOSM 557 1276-20 Livia 00:00:00 00:00:00 _Domitila [id number] Orth ope dic Sports Medicin e 2022-02-15 2022-02-15 Fabricio AOSM [place] - Ortho [id number] 07 Livia 00:00:00 00:00:00 Swathi Cartagena MD: 7401 FOG_Ofc dic [facility] Spo [place]ts [place], [place] [address] , Ph. [phone] 2022-02-07 2022-02-07 Outpatient FOG_Mathews AOSM AOSM 557 1276-20 Livia 00:00:00 00:00:00 _Domitila [id number] Orth ope dic Sports Medicin e 2022-02-06 2022-02-06 Outpatient FOG_Mathews AOSM AOSM 557 1276-20 Livia 00:00:00 00:00:00 _Domitila [id number] Orth ope dic Sports Medicin e 2022-01-31 2022-01-31 Outpatient FOG_Mathews AOSM AOSM 557 1276-20 Livia 00:00:00 00:00:00 _Domitila [id number] Orth ope dic Sports Medicin e 2022-01-26 2022-01-26 Outpatient FOG_Mathews AOSM AOSM 557 1276-20 Livia 00:00:00 00:00:00 _Domitila [id number] Orth ope dic Sports Medicin e 2022-01-19 2022-01-24 Inpatient EL Osiel, [facility] SURG [id number] [facility] 08:01:00 18:53:00 Fabricio [facility] 2022-01-24 2022-01-24 Outpatient FOG_Mathews AOSM AOSM 557 1276-20 Livia 00:00:00 00:00:00 _Domitila [id number] Orth ope dic Sports Medicin e 2022-01-23 2022-01-23 Outpatient FOG_Mathews AOSM AOSM 557 1276-20 Livia 00:00:00 00:00:00 _Domitila [id number] Orth ope dic Sports Medicin e 2022-01-19 2022-01-19 Fabricio AOSM [place] - [place] [id number] Livia 00:00:00 00:00:00 Swathi Cartagena MD: 7401 FOG_Surgery dic [facility], [facility] [place] [address] , Ph. [phone] 2021-12-29 2021-12-29 [facility] [id number] 295 [facility] 13:00:00 16:09:11 MARICARMEN ity o f [facility] 2021-12-29 2021-12-29 Office [facility] 1.2.840.114 [id number] Univers 13:00:00 13:20:00 Visit Maricarmen REID 350.1.13.10 ity [facility] [place] [phone] Md dical NAL [address] [place] [address] 2021-12-29 2021-12-29 Orders Doctor RAMIREZ 1.2.840.114 [id number] Univers 00:00:00 00:00:00 Only Unassigned, THEA 350.1.13.10 ity of [place] [facility] 4.2.7.2.686 Jose as [phone] [address] 2021-12-22 2021-12-22 Outpatient FOG_Mathews AOSM AOSM 557 1276-20 Livia 00:00:00 00:00:00 _Domitila [id number] Orth ope dic Sports Medicin e 2021-12-16 2021-12-16 Outpatient FOG_Mathews AOSM AOSM 557 1276-20 Livia 00:00:00 00:00:00 _Domitila [id number] Orth ope dic Sports Medicin e 2021-12-15 2021-12-15 Telephone [facility] 1.2.393.062 [id number] Univers 00:00:00 00:00:00 Maricarmen MATHEWS 350.1.13.10 ity of [facility] [place] [phone] Md dical NAL [address] [place] [address] 2021-12-14 2021-12-14 Telephone [facility] 1.2.628.589 [id number] Univers 00:00:00 00:00:00 Maricarmen MATHEWS 350.1.13.10 ity of [place] [phone] Md rayal NAL 059 [facility] 2021-12-14 2021-12-14 Orders Doctor RAMIREZ 1.2.840.114 [id number] Univers 00:00:00 00:00:00 Only Unassigned, THEA 350.1.13.10 ity of [place] [facility] 4.2.7.2.686 Jose as [phone] [place] [address] [address] 2021-12-13 2021-12-13 Telephone [facility] 1.2.381.526 [id number] Univers 00:00:00 00:00:00 Maricarmen MATHEWS 350.1.13.10 ity of [place] [phone] Md dical NAL 059 [facility] 2021-12-08 2021-12-08 Outpatient R [facility] [id number] Univers 09:33:57 23:59:00 MARICARMEN mendiola o f [facility] 2021-12-08 2021-12-08 Orders Doctor RAMIREZ 1.2.840.114 [id number] Univers 00:00:00 00:00:00 Only Unassigned, THEA 350.1.13.10 ity of [place] [facility] 4.2.7.2.686 Jose as [phone] [address] 2021-12-02 2021-12-02 Outpatient ELLA CartagenaCL LABO [id number] [facility] 16:09:00 16:09:00 Fabricio 81 [facility] 2021-12-02 2021-12-02 Outpatient ELLA CardozaCL LABO [id number] [facility] 16:09:00 16:09:00 Fabricio 81 [facility] 2021-12-02 2021-12-02 Outpatient OLGA LIDIA Cartagena HCATO RADI [id number] [facility] 10:27:00 10:27:00 Fabricio [facility] 2021-12-02 2021-12-02 Outpatient OLGA LIDIA Cartagena HCATO RADI [id number] [facility] 10:27:00 10:27:00 Fabricio 21 [facility] 2021-11-25 2021-11-25 Telephone [facility] 1.2.688.377 [id number] Univers 00:00:00 00:00:00 Maricarmen MATHEWS 350.1.13.10 ity of [place] [phone] Md dical NAL 059 [facility] 2021-11-25 2021-11-25 Orders Doctor RAMIREZ 1.2.840.114 [id number] Univers 00:00:00 00:00:00 Only Unassigned, THEA 350.1.13.10 ity of [place] [facility] 4.2.7.2.686 Jose as [phone] [address] 2021-11-24 2021-11-24 Outpatient FOG_Mathews AOSM AOSM 557 1276-20 Livia 00:00:00 00:00:00 _Domitila [id number] Orth ope dic Sports Medicin e 2021-11-21 2021-11-21 Outpatient OLGA LIDIA FITO Cartagena LABO [id number] [facility] 16:22:00 16:22:00 Fabricio 87 [facility] 2021-11-21 2021-11-21 Outpatient OLGA LIDIA ELLA CartagenaTO 3DAY [id number] [facility] 09:00:00 09:01:00 Fabricio 15 [facility] 2021-11-11 2021-11-11 Outpatient FOG_Mathews AOSM AOSM 557 1276-20 Livia 00:00:00 00:00:00 _Domitila [id number] Orth ope dic Sports Medicin e 2021-11-02 2021-11-02 Outpatient FOG_Mathews AOSM AOSM 557 1276-20 Livia 00:00:00 00:00:00 _Domitila [id number] Orth ope dic Sports Medicin e 2021-11-02 2021-11-02 Fabricio AOSM [place] - Ortho 24 Livia 00:00:00 00:00:00 Swathi Cartagena MD: 7401 FOG_Ofc dic [facility], [place] [address] , Ph. [phone] 2021-11-02 2021-11-02 Outpatient Osiel AOSM AOSM [id number]-2 00:00:00 00:00:00 Fabricio [id number] 2021-10-20 2021-10-20 Outpatient R LETA [facility] [id number] Univers 11:00:00 11:20:08 [facility]-10-20 2021-10-20 Urgent [facility] 1.2.840.114 [id number] Univers 11:00:00 11:20:00 Care [facility] 350.1.13.10 it [facility] 4.2.7.2.686 Jose as LEXIE?BLEA [phone] Md dical [facility] [address] [place] MEDICAL OFFICE [facility]ILDING 2021-09-28 2021-09-28 Outpatient FOG_Osiel AOSM AOSM 557 1276-20 Livia 00:00:00 00:00:00 _Domitila [id number] Orth ope dic Sports Medicin e 2021-09-21 2021-09-21 Telephone [facility] 1.2.620.199 [id number] Univers 00:00:00 00:00:00 Maricarmen ASHER 350.1.13.10 ity [facility] [place] [phone] Md dical [facility] 059 [facility] 2021-09-06 2021-09-06 OFFICE STLMLC STLMLC [id number] Co mmon 00:00:00 00:00:00 VISIT Spirit ESTAB PT - CHI LEVEL 4 [facility] 2021-07-13 2021-07-13 (TEL) STLMLC STLMLC [id number] Co mmon 00:00:00 00:00:00 Spirit - CHI [facility] 2021-07-07 2021-07-07 Postop STLMLC STLMLC [id number] Co mmon 00:00:00 00:00:00 visit [facility] CHI [facility] 2021-07-04 2021-07-04 (TEL) STLMLC STLMLC [id number] Co mmon 00:00:00 00:00:00 [facility] 2021-06-23 2021-06-23 (TEL) STLMLC STLMLC [id number] Co mmon 00:00:00 00:00:00 [facility] 2021-06-08 2021-06-08 Outpatient R PATRICK, [facility] [id number] Univers 09:00:00 09:00:00 MARICARMEN stewart [facility] 2021-06-07 2021-06-07 Outpatient R PATRICK, [facility] [id number] Univers 10:00:00 10:00:00 MARICARMEN stewart [facility] 2021-06-07 2021-06-07 Outpatient R PATRICK, [facility] [id number] Univers 10:00:00 10:00:[address] [facility] 2021-06-07 2021-06-07 NON-BILLAB STLMLC STLMLC [id number] Common 00:00:00 00:00:00 [facility] 2021-06-06 2021-06-06 Outpatient R [facility] [id number] Univers 10:00:00 10:00:00 ity [facility] 2021-05-09 2021-05-09 Outpatient R PATRICK, [facility] [id number] Univers 09:40:00 10:48:[address] [facility] 2021-05-09 2021-05-09 Office [facility] 1.2.840.114 [id number] Univers 09:40:00 10:48:25 Visit Harshilisak REID 350.1.13.10 [facility] 4.2.7.2.686 Lisseth WINTERS [phone] Md dical NAL [address] [facility] 2021-05-09 2021-05-09 Outpatient R PATRICK, [facility] [id number] Univers 09:40:00 10:48:[address] [facility] 2021-05-09 2021-05-09 Outpatient R PATRICK, [facility] [id number] Univers 09:40:00 10:48:[address] [facility] 2021-05-09 2021-05-09 Orders Doctor GUZMÁN 1.2.840.114 [id number] Univers 00:00:00 00:00:00 Only Unassigned, THEA 350.1.13.10 ity of [place] [facility] 4.2.7.2.686 Jose as [phone] [facility] [address] 2021-04-11 2021-04-11 Outpatient R KIRILL [facility] [id number] Univers 08:06:01 23:59:00 SHANNAN mendiola [facility] 2021-04-11 2021-04-11 Hospital [facility] 1.2.792.659 [id number] Univers 08:00:00 23:59:00 Encounter Shannan MATHEWS 350.1.13.10 ity [facility] [place]2.[place].2.[place] [phone] [facility] [address] 2021-04-04 2021-04-04 Outpatient [facility] [id number] Univers 00:00:00 00:00:00 SHANNAN orellanaomaira [facility] 2021-03-29 2021-03-29 Outpatient R MARCK HANNA [facility] [id number] Univers 11:00:00 11:00:00 MARCK HANNA itomaira [facility] 2021-03-25 2021-03-25 Outpatient [facility] [id number] Univers 11:00:00 11:50:59 SHANNAN [facility] 2021-03-25 2021-03-25 Office [facility] 1.2.840.114 [id number] Univers 11:00:00 11:50:59 Visit Shannan MATHEWS 350.1.13.10 i ty [facility] [place]2.7.2.[place] [facility] [phone] Md dical [facility] 098 [facility] 2021-03-25 2021-03-25 Outpatient R [facility] [id number] Univers 11:00:00 11:50:59 SHANNAN [facility] 2021-03-25 2021-03-25 Orders Doctor GUZMÁN 1.2.840.114 [id number] Univers 00:00:00 00:00:00 Only Unassigned, THEA 350.1.13.10 ity [place] [facility]OSPITAL 4.2.7.2.686 Jose as [phone] [facility] [address] [place] 2021-03-21 2021-03-21 Fast Food Supervisor Pinky Pugh Lab Main [facility] 1.2.8 40.114 [id number] Univers 07:45:00 08:00:00 Visit Shannan RoyPEARL 350.1.13.10 [facility] [place].2.[place] [phone] Md dical [facility] 353 [facility] 2021-03-21 2021-03-21 Outpatient R [facility] [id number] Univers 07:45:00 07:45:00 SHANNAN ity of [facility] 2021-02-18 2021-02-18 Outpatient R [facility] [id number] Univers 10:00:00 10:00:00 ity of [facility] 2021-02-17 2021-02-17 Telephone [facility] 1.2.840.114 [id number] Univers 00:00:00 00:00:00 Shannan REID 350.1.13.10 i ty of [place] [phone] Md dical NAL 204 [facility] 2021-02-14 2021-02-14 Orders Doctor RAMIREZ 1.2.840.114 [id number] Univers 00:00:00 00:00:00 Only Unassigned, THEA 350.1.13.10 ity [place] HOSPITAL 4.2.7.2.686 Jose as [phone] [address] 2021-02-08 2021-02-08 Telephone [facility] 1.2.840.114 [id number] Univers 00:00:00 00:00:00 Shannan REID 350.1.13.10 i ty [facility] 4.2.[place].2.[place] [phone] Md dical NAL 204 [facility] 2021-01-10 2021-01-10 Case [facility] 1.2.840.114 [id number] Univers 00:00:00 00:00:00 [facility] 350.1.13.10 ity of [place]2.7.2.[place] [phone] [place] [id number] [place] OFFICE [facility] 2021-01-07 2021-01-07 Outpatient R [facility] [id number] Univers 10:00:00 10:27:04 SHANNAN ity [facility] 2021-01-07 2021-01-07 Office [facility] 1.2.840.114 [id number] Univers 09:56:23 10:27:04 Visit Shannan [place] 350.1.13.10 i ty of [place] 4.2.7.2.[place] [phone] [facility] 098 [facility] 2021-01-07 2021-01-07 Outpatient R [facility] [id number] Univers 10:00:00 10:00:00 SHANNAN ity [facility] 2021-01-03 2021-01-03 Telephone [facility] 1.2.840.114 [id number] Univers 00:00:00 00:00:00 [facility] 350.1.13.10 it y of [place] [phone] [address] Office [facility] 2021-01-03 2021-01-03 Telephone [facility] 1.2.840.114 [id number] Univers 00:00:00 00:00:00 Shannan Romulus 350.1.13.10 i ty of [place] [phone] Md dical [facility] 134 [facility] 2020-12-30 2020-12-30 Hospital Radiology [facility] 1.2.840.114 [id number] Univers 08:40:00 23:59:00 Encounter Romulus 350.1.13.10 ity of [place].2.[place] [phone] [facility] [address] 2020-12-30 2020-12-30 Outpatient R ERICA CABA [facility] [id number] Univers 10:30:00 10:30:00 ERICA CABA i ty of [facility] 2020-12-30 2020-12-30 Fast Food Supervisor Keaton, Pinky Lab Main [facility] 1.2.8 40.114 [id number] Univers 08:59:10 09:14:10 Visit Shannan Roy 350.1.13.10 ity of [place].2.[place] [phone] Md dical nal [address] [facility] 2020-12-28 2020-12-28 Hospital Radiology [facility] 1.2.840.114 [id number] Univers 09:58:42 23:59:00 Encounter Romulus 350.1.13.10 ity of [place].2.[place] [phone] [facility] [address] 2020-12-28 2020-12-28 Outpatient R RADIOLOGY [facility] [id number] Univers 00:00:00 00:00:00 ity of [facility] 2020-12-28 2020-12-28 Orders Doctor RAMIREZ 1.2.840.114 [id number] Univers 00:00:00 00:00:00 Only Unassigned, THEA 350.1.13.10 it[place] [facility]OSPITAL 4.2.7.2.686 Jose as [phone] [facility] [address] 2020-11-12 2020-11-12 Outpatient R KIRILL [facility] [id number] Univers 09:30:00 09:30:00 SHANNAN itomaira of [facility] 2020-11-12 2020-11-12 Telephone Aleks [facility] 1.2.752.030 [id number] Univers 00:00:00 00:00:00 Shimartinn Romulus 350.1.13.10 i ty [place] [phone] Md dical nal 085 [facility] 2020-11-08 2020-11-08 [facility] 1.2.840.114 [id number] Univers 07:50:52 23:59:00 Encounter Erica Casont[place] 350.1.13.10 ity of [place].2.[place] [phone] [facility] [address] 2020-11-08 2020-11-08 Outpatient R [facility] [id number] Univers 09:00:00 09:00:00 SHANNAN mendiola [facility] 2020-11-08 2020-11-08 Outpatient R ERICA CABA [facility] [id number] Univers 00:00:00 00:00:00 ERICA CABA i ty [facility] 2020-11-05 2020-11-05 Outpatient R [facility] [id number] Univers 13:00:00 13:00:00 SHANNAN omaira [facility] 2020-10-29 2020-10-29 Office [facility] 1.2.840.114 [id number] Univers 13:48:11 14:15:23 Visit Erica Mathews 350.1.13.10 i ty [facility] [place].2.7.2.[place] [phone] Md dical nal 085 [facility] 2020-10-29 2020-10-29 Outpatient R ERICA CABA [facility] [id number] Univers 14:00:00 14:00:00 ERICA CABA i ty [facility] 2020-10-11 2020-10-11 Outpatient R [facility] [id number] Univers 10:00:00 10:00:00 [facility] 2020-10-07 2020-10-07 Telephone [facility] 1.2.922.657 [id number] Univers 00:00:00 00:00:00 Sana Mathews 350.1.13.10 ity [facility] 4[place]2.7.2.[place] [phone] Md dical nal 204 [facility] 2020-10-05 2020-10-05 Outpatient R [facility] [id number] Univers 11:30:00 11:30:00 SANA mendiola [facility] 2020-10-05 2020-10-05 Fast Food Supervisor Keaton, Pinky Lab Main [facility] 1.2.8 40.114 [id number] Univers 11:14:57 11:29:57 Visit Sana Gao 350.1.13.10 ity of [place] [phone] Md dical nal 353 [facility] 2020-10-05 2020-10-05 Orders Doctor RAMIREZ 1.2.840.114 [id number] Univers 00:00:00 00:00:00 Only Unassigned, THEA 350.1.13.10 ity of [place] [facility] 4.2.7.2.686 Jose as [phone] [facility] [address] 2020-09-30 2020-09-30 Outpatient R ERICA CABA [facility] [id number] Univers 09:00:00 09:00:00 ERICA CABA i ty [facility] 2020-09-17 2020-09-17 Telephone [facility] 1.2.696.651 [id number] Univers 00:00:00 00:00:00 Sana A Romulus 350.1.13.10 [place] of [place] [phone] Md dical nal 204 [facility] 2020-09-16 2020-09-16 Telephone [facility] 1.2.377.178 [id number] Univers 00:00:00 00:00:00 Sana A Romulus 350.1.13.10 ity of [place] [phone] Md dical [facility] 204 [facility] 2020-08-16 2020-08-16 Telephone [facility] 1.2.908.826 [id number] Univers 00:00:00 00:00:00 [facility] 350.1.13.10 it y of [place].2.[place] - [phone] Med ical [facility] [address] 2020-08-12 2020-08-12 Hospital Radiology [facility] 1.2.840.114 [id number] Univers 10:23:08 23:59:00 Encounter Reid 350.1.13.10 ity of [place].2.[place] [phone] [facility] [address] 2020-08-12 2020-08-12 Fast Food Supervisor Keaton, Adc Lab Main [facility] 1.2.8 40.114 [id number] Univers 10:25:23 10:40:23 Visit Eusebio Johanny Mathews 350.1.13.10 ity of [place].7.2.[place] [phone] Md dical nal 353 [facility] 2020-08-12 2020-08-12 Outpatient R RADIOLOGY [facility] [id number] Univers 00:00:00 00:00:00 ity of [facility] 2020-08-12 2020-08-12 Orders Doctor RAMIREZ 1.2.840.114 [id number] Univers 00:00:00 00:00:00 Only Unassigned, THEA 350.1.13.10 ity of [facility] 4.2.7.2.686 Jose as [phone] [address] 2020-08-11 2020-08-11 Telephone [facility] 1.2.556.280 [id number] Univers 00:00:00 00:00:00 Sana Mathews 350.1.13.10 ity of [place] [phone] [facility] [address] [facility] 2020-07-26 2020-07-26 Outpatient R MIKE, [facility] [id number] Univers 13:20:00 13:20:00 GRACY ity [facility] 2020-07-20 2020-07-20 Outpatient R EUSEBIO [facility] [id number] Univers 10:00:00 10:00:00 BILAL ity [facility] 2020-07-12 2020-07-12 Telephone Murray, [facility] [id number] Univers 00:00:00 00:00:00 Sana Mathews [id number] [id number] [phone] Md dical nal [address] [facility] 2020-07-08 2020-07-08 Fast Food Supervisor Keaton, [facility] Main [facility] 1.2.8 40.114 [id number] Univers 10:28:55 10:43:55 Visit Giuseppe Tri Mathews [id number] [id number] [phone] Md dical [facility] [address] [facility] 2020-07-08 2020-07-08 Outpatient R GIUSEPPE [facility] [id number] Univers 10:30:00 10:30:00 TRI ity [facility] 2020-07-08 2020-07-08 Telephone [facility] [id number] Univers 00:00:00 00:00:00 Sana Mathews [id number] [id number] [phone] [facility] [address] [facility] 2020-07-08 2020-07-08 Orders Doctor RAMIREZ [id number] Univers 00:00:00 00:00:00 Only Unassigned, THEA [id number] ity of [place] [facility] [id number] Jose as [phone] [facility] [address] 2020-07-06 2020-07-06 Office [facility] [id number] Univers 09:48:07 10:54:20 Visit [facility] [id number] it [id number] [facility] [phone] [facility] Primary & [address] [facility] 2020-07-06 2020-07-06 Outpatient R EUSEBIO [facility] [id number] Univers 09:45:00 09:45:00 BILAZ ity [facility] 2020-06-30 2020-06-30 Fast Food Supervisor Pinky Pugh Lab Main [facility] 1.2.8 40.114 [id number] Univers 16:54:53 17:09:53 Visit Sana Gao [id number] [id number] [phone] [facility] [address] [facility] 2020-06-30 2020-06-30 [facility] [id number] Univers 17:00:00 17:00:00 SANA ity of [facility] 2020-06-30 2020-06-30 Orders Doctor RAMIREZ 1.2.840.114 [id number] Univers 00:00:00 00:00:00 Only Unassigned, THEA 350.1.13.10 ity of [place] [facility] 4.2.7.2.686 Jose as [phone] [facility] [address] [place] 2020-06-28 2020-06-28 Telephone [facility] 1.2.578.425 [id number] Univers 00:00:00 00:00:00 Sana Mathews 350.1.13.10 [place] [phone] [address] 2020-06-21 2020-06-21 Hospital Radiology [facility] 1.2.840.114 [id number] Univers 10:25:21 23:59:00 Encounter Romulus 350.1.13.10 [place] [phone] [facility] 801 [place] 2020-06-21 2020-06-21 Outpatient R RADIOLOGY [facility] [id number] Univers 00:00:00 00:00:00 ity of [facility] 2020-06-04 2020-06-04 Case [facility] 1.2.840.114 [id number] Univers 00:00:00 00:00:00 Management Sana Mathews 350.1.13.10 [place] [phone] [facility] 204 [facility] 2020-06-03 2020-06-03 [facility] 1.2.840.114 [id number] Univers 16:10:40 23:59:00 Encounter Sana Casonton 350.1.13.10 [place] [phone] [facility] 801 [place] 2020-06-03 2020-06-03 Nurse Nurse, Adc [facility] 1.2. 840.114 [id number] Univers 14:28:14 16:02:32 Visit Sana Gao 350.1.13.10 [place] [phone] Md dical nal 204 [facility] 2020-06-03 2020-06-03 Outpatient R [facility] [id number] Univers 14:30:00 14:30:00 ity of [facility] 2020-06-03 2020-06-03 Orders Doctor RAMIREZ 1.2.840.114 [id number] Univers 00:00:00 00:00:00 Only Unassigned, THEA 350.1.13.10 [facility] [place] [facility] 4.2.7.2.686 Jose as [phone] [address] 2020-06-02 2020-06-02 Fast Food Supervisor Keaton, Adc Lab Main [facility] 1.2.8 40.114 [id number] Univers 12:51:03 13:06:03 Visit Sana Gao 350.1.13.10 [place] [phone] Md dical nal 353 [facility] 2020-06-02 2020-06-02 Outpatient R MURRAY [facility] [id number] Univers 13:00:00 13:00:00 SANA mendiola of [facility] 2020-06-01 2020-06-01 Patient Sunday [facility] 1.2.840.114 [id number] Univers 00:00:00 00:00:00 Outreach Paul KEEN 350.1.13.10 i ty of [facility] [place] [phone] Md dical 388 [place] 2020-05-17 2020-05-17 Outpatient [facility] [id number] Common 00:00:00 00:00:00 [facility] 2020-05-11 2020-05-11 Office [facility] 1.2.840.114 [id number] Univers 10:39:02 11:23:09 Visit Sana Mathews 350.1.13.10 [place] [facility] [phone] Md dical [facility] 204 [facility] 2020-05-11 2020-05-11 Outpatient R MURRAY [facility] [id number] Univers 10:45:00 10:45:00 SANA mendiola [facility] 2020-04-27 2020-04-27 Outpatient R MURRAY [facility] [id number] Univers 10:30:00 10:30:00 SANA [facility] [place] 2020-04-22 2020-04-22 Emergency [facility] 1.2.162.669 [id number] Univers 09:35:00 10:45:00 Osito Mathews 350.1.13.10 i ty [place] [phone] [address] 2020-04-13 2020-04-13 Telephone Geovany Carbone [facility] 1.2.840.114 [id number] Univers 00:00:00 00:00:00 [facility] 350.1.13.10 it y [place] [phone] [address] Office Building 2020-04-08 2020-04-08 Emergency Sergio, K [facility] 1.2.840.114 [id number] Univers 18:57:00 21:59:00 Sue Mathews 350.1.13.10 i ty [place] [phone] [address] 2020-04-07 2020-04-07 Telephone Aisha [facility] 1.2.343.294 [id number] Univers 00:00:00 00:00:00 [facility] 350.1.13.10 it y [place] [phone] [address] Office Building 2020-04-05 2020-04-05 Outpatient R GEOVANY CARBONE [facility] [id number] Univers 10:00:00 10:00:00 ity of [facility] 2020-04-05 2020-04-05 Fast Food Supervisor Keaton, Pinky Lab Main [facility] 1.2.8 40.114 [id number] Univers 09:08:27 09:23:27 Visit Geovany Carbone [place] 350.1.13.10 ity of [place] [phone] Md dical [address] 2020-04-05 2020-04-05 Orders Doctor RAMIREZ 1.2.840.114 [id number] Univers 00:00:00 00:00:00 Only Unassigned, THEA 350.1.13.10 ity of [place] [facility] 4.2.7.2.686 Jose as [phone] [address] 2020-04-05 2020-04-05 Outpatient STLMLC [facility] [id number] Common 00:00:00 00:00:00 [facility] 2020-04-02 2020-04-02 Telephone Aisha [facility] 1.2.778.397 [id number] Univers 00:00:00 00:00:00 [facility] 350.1.13.10 it y [place] [phone] [address] Office Building 2020-04-02 2020-04-02 Telephone Geovany Carbone [facility] 1.2.840.114 [id number] Univers 00:00:00 00:00:00 [facility] 350.1.13.10 it [place] [phone] [address] Office Building 2020-03-22 2020-03-22 Outpatient STLMLC ST[facility] [id number] Common 00:00:00 00:00:00 [facility] 2020-03-10 2020-03-10 Outpatient STLMLC STLMLC [id number] Common 00:00:00 00:00:00 [facility] 2020-02-24 2020-02-24 Outpatient [facility] [id number] Univers 10:30:00 10:30:00 ELIEL ity of [facility] 2020-02-10 2020-02-10 Outpatient STLMLC STLC [id number] Common 00:00:00 00:00:00 [facility] 2020-01-12 2020-01-12 Outpatient STLMLC STLC [id number] Common 00:00:00 00:00:00 [facility] 2019-11-28 2019-11-28 Telephone [facility] 1.2.325.845 [id number] Univers 00:00:00 00:00:00 Kendra SPECIALTY 350.1.13.10 ity of CARE 4.2.7.2.[address] [facility] KATHLEEN AT [phone] [address] 2019-11-25 2019-11-25 Office [facility] 1.2.840.114 [id number] Univers 13:17:08 14:58:15 Visit Kendra SPECIALTY 350.1.13.10 ity of CARE 4.2.7.2.686 [facility] KATHLEEN AT [phone] [address] 2019-11-25 2019-11-25 Outpatient R [facility] [id number] Univers 13:30:00 13:30:00 [facility] ity [facility] 2019-11-25 2019-11-25 Orders Doctor RAMIREZ 1.2.840.114 [id number] Univers 00:00:00 00:00:00 Only Unassigned, THEA 350.1.13.10 ity [place] [facility] 4.2.7.2.686 Jose [phone] [address] 2019-11-18 2019-11-18 Outpatient R [facility] [id number] Univers 09:30:00 09:30:00 KENDRA ity [facility] 2019-10-13 2019-10-13 Outpatient [facility] [id number] Common 10:00:00 10:00:00 [facility] 2018-11-29 2018-11-29 Telephone [facility] 1.2.827.456 [id number] 00:00:00 00:00:00 Sana Mathews 350.1.13.10 [place] 4.2.7.2.686 Professio [phone] [facility] 204 [facility] 2018-11-29 2018-11-29 Telephone [facility] 1.2.886.792 [id number] Univers 00:00:00 00:00:00 Sana Mathews 350.1.13.10 [place] [phone] [facility] 204 [facility] 2018-10-24 2018-10-24 Office [facility] 1.2.840.114 [id number] 15:15:31 15:41:04 Visit Erica Mathews 350.1.13.10 [place] 4.2.7.2.686 Professio [phone] [address] 2018-10-24 2018-10-24 Office [facility] 1.2.840.114 [id number] Univers 15:15:31 15:41:04 Visit Erica Casonton 350.1.13.10 i [place] [phone] [facility] 085 [facility] 2018-10-16 2018-10-16 Orders Doctor RAMIREZ 1.2.840.114 [id number] Univers 00:00:00 00:00:00 Only Unassigned, THEA 350.1.13.10 [place] [facility] 4.2.7.2.686 Jose as [phone] [address] Results Test Description Test Time Test Comments Results Result [facility] e Comments - XR PELVIS 03/132022-01-24 VIEWS 10:13:00 [facility] : 1955 Sex: F Patient Name: VALENTINO DALAL Unit No: [id number] EXAMS: CPT CODE: [id number] XR PELVIS 1/2 VIEWS 59611 AP VIEW OF THE PELVIS. COMMENT: In progress total right hip arthroplasty. Fracture of the right proximal femur is partially demonstrated laterally. AP view of the pelvis COMMENT: Completed total right hip arthroplasty. Lateral plate and screw fixation of the right femur is noted without immediate complication. at 1013 Reported and signed by: Chong Ochoa M.D. CC: Fabricio Cartagena MD Technologist: Charles Munoz(R) Transcribed D/ (1013) VicenteSLJ [facility] NAME: VALENTINO DALAL [address] [facility] PHYS: MATVA.Yvrose - Fabricio Cartagena : 1955 AGE: 66 SEX: F [place] [address] LOC: Y.507 A PHONE #: [phone] EXAM DATE: 01/20/2022 STATUS: ADM IN FAX #: [phone] RAD #: D/C DT PAGE 1 Signed Report Patient Name: VALENTINO DALAL Unit No: [id number] EXAMS: CPT CODE: [id number] XR PELVIS 1/2 VIEWS 94481 (Continued) Orig Print D/T: S: 01/24/2022 (1017) [facility] NAME: VALENTINO DALAL [address] [facility] PHYS: MATVA.Yvrose - Fabricio Cartagena : 1955 AGE: 66 SEX: F [place] [address] LOC: Y.507 A PHONE #: [phone] EXAM DATE: 01/20/2022 STATUS: ADM IN FAX #: [phone] RAD #: D/C DT PAGE 2 Signed Report - XR PELVIS 1/2 2022-01-24 VIEWS 10:13:00 [facility] 1955 Sex: F Patient Name: VALENTINO DALAL Unit No: [id number] EXAMS: CPT CODE: [id number] XR PELVIS 1/2 VIEWS 94316 AP VIEW OF THE PELVIS. COMMENT: In progress total right hip arthroplasty. Fracture of the right proximal femur is partially demonstrated laterally. AP view of the pelvis COMMENT: Completed total right hip arthroplasty. Lateral plate and screw fixation of the right femur is noted without immediate complication. at 1013 Reported and signed by: Chong Ochoa M.D. CC: Fabricio Cartagena MD Technologist: Charles Munoz(R) Transcribed D/ (1013) VicenteSLJ [facility] NAME: VALENTINO DALAL [address] [facility] PHYS: MATVA.01 - Fabricio Cartagena : 1955 AGE: 66 SEX: F [place], [place] [address] LOC: Y.507 A PHONE #: [phone] EXAM DATE: 01/19/2022 STATUS: ADM IN FAX #: [phone] RAD #: D/C DT PAGE 1 Signed Report Patient Name: VALENTINO DALAL Unit No: [id number] EXAMS: CPT CODE: [id number] XR PELVIS 1/2 VIEWS 15555 (Continued) Orig Print D/T: S: 01/24/2022 (1017) [facility] NAME: VALENTINO DALAL [address] [facility] PHYS: JACKLYN.01 - Fabricio Cartagena : 1955 AGE: 66 SEX: F [place], [place] [address] LOC: YJovany Wall PHONE #: [phone] EXAM DATE: 01/19/2022 STATUS: ADM IN FAX #: [phone] RAD #: D/C DT PAGE 2 Signed Report BASIC METABOLIC PANEL 2022-01-20 07:12:00 Test Item Value Reference Range Interpretation Comme nts SODIUM (test code = NA) 139 mmol/L 136-145 N POTASSIUM (test code = K) 5.2 mmol/L 3.5-5.1 H CHLORIDE (test code = CL) 103.0 mmol/L 98-107 N CARBON DIOXIDE (test code = 23.7 mmol/L 21-32 N CO2) GLUCOSE (test code = GLU) 127 mg/dL 70-110 H BLOOD UREA NITROGEN (test 20 mg/dL 7-18 H code = BUN) GLOMERULAR FILTRATION RATE 45.6 >60 T he Glomerular Filtration Rate (test code = GFR) is a calcu lated parameterbased on serum Creati nine, patient age and sex. GFR va luesless than 60 mL/min/1.73 squ are meters are indicative ofCh ronic Kidney Disease. Values less than 15 mL/min/1.73squa re meters indicate Kidney failure. The calculation for GFR is based on the CKD-EPI (20 21) calculation. This formulais race indifferent and is the olga mmended formula for GFRby the [facility] Kidney Foundation for Adults.The GFR will not calcul ate if the sex is unknown or if t hepatient's age is <18 years. CREATININE (test code = 1.30 mg/dL 0.55-1.30 N CREAT) CALCIUM (test code = CA) 8.1 mg/dL 8.2-10.1 L HGB [id number] 06:43:00 Test Item Value Reference Range Interpretation Comments HEMOGLOBIN (test code = HGB) 9.9 g/dL 12-16 L HEMATOCRIT (test code = HCT) 29.7 % 37-47 L Hemoglobin and Hematocrit panel - [id number] 04:00:00 Test Item Value Reference Range Interpretation Comments hemoglobin (test code = hemoglobin) 9.9 g/dL 12-16 L hematocrit (test code = hematocrit) 29.7 % 37-47 L performing lab: (test code = performing lab:) [facility] metabolic [id number] 04:00:00 Test Item Value Reference Range Interpretation Comments sodium (test code = sodium) 139 mmol/L 136-145 potassium (test code = 5.2 mmol/L 3.5-5.1 H potassium) chloride (test code = chloride) 103.0 mmol/L 98-107 carbon dioxide (test code = 23.7 mmol/L 21-32 carbon dioxide) glucose (test code = glucose) 127 mg/dL 70-110 H blood urea nitrogen (test code = 20 mg/dL 7-18 H blood urea nitrogen) glomerular filtration rate (test 45.6 >60 code = glomerular filtration rate) creatinine (test code = 1.30 mg/dL 0.55-1.30 creatinine) calcium (test code = calcium) 8.1 mg/dL 8.2-10.1 L performing lab: (test code = performing lab:) [facility] 2022-01-20 04:00:00 Test Item Value Reference Range Interpretation Comments hemoglobin (test code = hemoglobin) 9.9 g/dL 12-16 L hematocrit (test code = hematocrit) 29.7 % 37-47 L performing lab: (test code = performing lab:) [facility] metabolic [id number] 04:00:00 Test Item Value Reference Range Interpretation Comments sodium (test code = sodium) 139 mmol/L 136-145 potassium (test code = 5.2 mmol/L 3.5-5.1 H potassium) chloride (test code = chloride) 103.0 mmol/L 98-107 carbon dioxide (test code = 23.7 mmol/L 21-32 carbon dioxide) glucose (test code = glucose) 127 mg/dL 70-110 H blood urea nitrogen (test code = 20 mg/dL 7-18 H blood urea nitrogen) glomerular filtration rate (test 45.6 >60 code = glomerular filtration rate) creatinine (test code = 1.30 mg/dL 0.55-1.30 creatinine) calcium (test code = calcium) 8.1 mg/dL 8.2-10.1 L performing lab: (test code = performing lab:) [facility] Blood 2022-01-20 04:00:00 Test Item Value Reference Range Interpretation Comments hemoglobin (test code = hemoglobin) 9.9 g/dL 12-16 L hematocrit (test code = hematocrit) 29.7 % 37-47 L performing lab: (test code = performing lab:) [facility] [id number] 04:00:00 Test Item Value Reference Range Interpretation Comments sodium (test code = sodium) 139 mmol/L 136-145 potassium (test code = 5.2 mmol/L 3.5-5.1 H potassium) chloride (test code = chloride) 103.0 mmol/L 98-107 carbon dioxide (test code = 23.7 mmol/L 21-32 carbon dioxide) glucose (test code = glucose) 127 mg/dL 70-110 H blood urea nitrogen (test code = 20 mg/dL 7-18 H blood urea nitrogen) glomerular filtration rate (test 45.6 >60 code = glomerular filtration rate) creatinine (test code = 1.30 mg/dL 0.55-1.30 creatinine) calcium (test code = calcium) 8.1 mg/dL 8.2-10.1 L performing lab: (test code = performing lab:) [facility]- XR FLUORO [id number] 11:29:00 [facility] 1955 Sex: F Patient Name: VALENTINO DALAL Unit No: [id number] EXAMS: CPT CODE: [id number] XR FLUORO NDL 56607 Fluoroscopically guided right hip aspiration FINDINGS: After informed consent was obtained a 22-gauge needle is inserted into the right hip under fluoroscopic guidance using sterile technique. 1.5 cc of red fluid was aspirated. This is sent to the lab for analysis. The patient tolerated the procedure well. 4 seconds of fluoroscopy time was used on this exam. IMPRESSION: Fluoroscopically guided right hip aspiration. at 1129 Reported and signed by: Chong Ochoa M.D. CC: Fabricio Cartagena MD Technologist: Kallie BECKWITH-RAD-TECH Transcribed D/ (1129) Celestine [facility] NAME: VALENTINO DALAL [address] [place] [address] PHYS: MATGODWIN. - Fabricio Cartagena : 1955 AGE: 66 SEX: F [place] [address] LOC: Y.RAD PHONE #: [phone] EXAM DATE: 12/02/2021 STATUS: DEP CLI FAX #: [phone] RAD #: D/C DT PAGE 1 Signed Report Patient Name: VALENTINO DALAL Unit No: [id number] EXAMS: CPT CODE: [id number] XR FLUORO NDL 97116 (Continued) Orig Print D/T: S: 12/07/2021 (1132) [facility] NAME: VALENTINO DALAL [address] [place] [address] PHYS: MATGODWIN. - Fabricio Cartagena : 1955 AGE: 66 SEX: F [place] [address] LOC: Y.RAD PHONE #: [phone] EXAM DATE: 12/02/2021 STATUS: DEP CLI FAX #: [phone] RAD #: D/C DT PAGE 2 Signed Report- XR FLUORO [id number] 11:29:00 [facility] : 1955 Sex: F Patient Name: VALENTINO DALAL Unit No: [id number] EXAMS: CPT CODE: [id number] XR FLUORO NDL 65998 Fluoroscopically guided right hip aspiration FINDINGS: After informed consent was obtained a 22-gauge needle isinserted into the right hip under fluoroscopic guidance using sterile technique. 1.5 cc of red fluidwas aspirated. This is sent to the lab for analysis. The patient tolerated the procedure well. 4 seconds of fluoroscopy time was used on this exam. IMPRESSION: Fluoroscopically guided right hip aspiration. at 1129 Reported and signed by: Chong Ochoa M.D. CC: Fabricio Cartagena MD Technologist: Kallie BECKWITH-RAD-TECH Transcribed D/ (0590) VicenteSLJ [facility] NAME: VALENTINO DALAL [address] [place] [address] PHYS: Fabricio Hoffman : 1955 AGE: 66 SEX: F [place] [address] LOC: Y.RAD PHONE #: [phone] EXAM DATE: 12/02/2021 STATUS: DEP CLI FAX #: [phone] RAD #: D/C DT PAGE 1 Signed Report Patient Name: VALENTINO DALAL Unit No: [id number] EXAMS: CPT CODE: [id number] XR FLUORO NDL 06477 (Continued) Orig Print D/T: S: 12/07/2021 (1132) [facility] NAME: VALENTINO DALAL [address] [place] [address] PHYS: JACKLYN.Yvrose - Fabricio Cartagena : 1955 AGE: 66 SEX: F [place] [address] LOC: NICK PHONE #: [phone] EXAM DATE: 12/02/2021 STATUS: DEP CLI FAX #: [phone] RAD #: D/C DT PAGE [address] FLD CELL [id number] 16:31:00 Test Item Value Reference Range Interpretation Comments SYNOVIAL FLD BLOODY LT. YELLOW A COLOR (test code = COLSY) SYNOVIAL FLD SLIGHT HAZY CLEAR APPEARANCE (test code = APPSY) SYNOVIAL FLD 1 mL VOLUME (test code = VOLSY) SYNOVIAL FLD WBC 1170.000 /MM3 0-200 H (test code = WBCSY) SYNOVIAL FLD RBC 172211.000 0-2 H NOTE: An au tomated (test code = /mm3 method is now b eing used RBCSY) to determinesyn ovial fluid WBC and R BC counts. The dif ferential willstill be pe rformed manually. SYNOVIAL FLD POLY 25 % 0-25 N (test code = POLYSY) SYNOVIAL FLD 19 % 0-78 N LYMPHOCYTE (test code = LYMPHSY) SYNOVIAL FLD 1 % 0-71 N MONOCYTE (test code = MONOSY) SYNOVIAL FLUID 1 EOS (test code = EOSSY) SYNOVIAL FLD 54 % 0-0 H PLASMA CELL (test code = PLASY) SPECIMEN COMMENT: ASPIRATIONCBC W/MANUAL [id number] 13:15:00 Test Item Value Reference Range Interpretation Comments WHITE BLOOD CELL 7.6 K/mm3 5.8-11.0 N (test code = WBC) RED BLOOD CELL (test 4.39 M/mm3 4.2-5.4 N code = RBC) HEMOGLOBIN (test 13.2 g/dL 12-16 N code = HGB) HEMATOCRIT (test 39.9 % 37-47 N code = HCT) MEAN CELL VOLUME 91 fL 80-98 N (test code = MCV) MEAN CELL HGB (test 30.1 pg 27-34 N code = MCH) MEAN CELL HGB 33.1 g/dL 30.8-34.1 N CONCENTRATION (test code = MCHC) RED CELL 13.4 % 11-16 N DISTRIBUTION WIDTH (test code = RDW) PLT (test code = 209 K/mm3 130-400 N PLT) MEAN PLATELET VOLUME 11.1 fL 8.9-12.1 N (test code = MPV) STAIN ACCEPTABILITY STAIN ACCEPTABLE (test code = STN ACCEPTABLE) CELLS COUNTED (test 100 See_Comment [Automa ian code = TCC) message] The system which generated this result transmitted reference range : 100. The reference range was not used to interpret this result as normal/abnormal . SEGMENTED 57 % 50-65 N NEUTROPHILS (test code = SEG) LYMPHOCYTE (test 26 % 20-40 N code = LYMPH) NUCLEATED RED BLOOD 0 % 0-0 N CELL (test code = NRBC) MONOCYTE (test code 7 % 2-9 N = MON) EOSINOPHIL (test 10 % 1-3 H code = EOS) SED [id number] 13:15:00 Test Item Value Reference Range Interpretation Comments SED RATE (test code = SEDW) 30 mm/hr 0-20 H COMPREHENSIVE METABOLIC [id number] 12:49:00 Test Item Value Reference Range Interpretation Comments SODIUM (test code = 138 mmol/L 136-145 N NA) POTASSIUM (test code = 4.7 mmol/L 3.5-5.1 N K) CHLORIDE (test code = 102.0 mmol/L 98-107 N CL) CARBON DIOXIDE (test 29.4 mmol/L 21-32 N code = CO2) GLUCOSE (test code = 90 mg/dL 70-110 N GLU) BLOOD UREA NITROGEN 18 mg/dL 7-18 N (test code = BUN) GLOMERULAR FILTRATION 46.0 >60 Unit o f measure: RATE (test code = GFR) mL/mi n/1.73 [id number] Range:Healthy Adults >90 mL/min/1.73 m2 For Chronic Kidney Disease: Stage II Mild Decrease i n GFR 60-90 Stage III Moderate Decrea se in GFR 30-59 St age IV Severe Decre ase in GFR 15-29 St age V Kidney Failur e <15 CREATININE (test code 1.18 mg/dL 0.55-1.30 N = CREAT) TOTAL PROTEIN (test 7.0 g/dL 6.4-8.2 N code = PROT) ALBUMIN (test code = 3.2 g/dL 3.4-5.0 L ALB) GLOBULIN (test code = 3.8 g/dL 2.2-4.2 N GLOB) ALBUMIN/GLOBULIN RATIO 0.8 0.7-2.0 N (test code = A/G) CALCIUM (test code = 8.7 mg/dL 8.2-10.1 N CA) BILIRUBIN TOTAL (test 0.50 mg/dL 0.2-1.00 N code = BILT) SGOT/AST (test code = 29.0 U/L 15-37 N AST) SGPT/ALT (test code = 38.0 U/L 12-78 N Please note new ALT) normal range. ALKALINE PHOSPHATASE 123 U/L 46-116 H TOTAL (test code = ALKP) PROTHROMBIN [id number] 12:49:00 Test Item Value Reference Range Interpretation Comments PROTHROMBIN TIME 10.8 secs 9.7-12.5 N Please note new normal PATIENT (test code = range. PTP) INTERNATIONAL NORMAL 0.97 <2.0 RECOMME NDED THERAPEUTIC RATIO (test code = RANGE FOR ORAL INR) ANTICOAGULANTTR EATMENT: CONDITION INRPr ophylaxis of venous throm bosis in 2.0 - 3.0 high- risk medical or surg ical patientsTreatme nt of venous thrombos is 2.0 - 3.0Prevention o f embolism 2.0 - 3.0Prevention o f recurrent embol ism, or 3.0 - 4.5 patie nts with mechanical pros thetic intravascular v mercado IS PATIENT ON ANTICOAGULANTS ? NHas Lab been notified if Patient is on Heparin Drip? NOIf Yes, orderCBC, OCCULT BLOOD, PT every other day NTHROMBOPLASTIN TIME [id number] 12:49:00 Test Item Value Reference Range Interpretation Comments PTT ACTIVATED (test 31.4 secs 26.6-34.6 N Please n ote new code = APTT) normal range. IS PATIENT ON ANTICOAGULANTS ? NHas Lab been notified if Patient is on Heparin Drip? NOIf Yes, orderCBC, OCCULT BLOOD, PT every other day NC REACTIVE PROTEIN 2021-11-21 12:49:00 Test Item Value Reference Range Interpretation Comments C REACTIVE PROTEIN (test code = 1.7 mg/dL <0.9 CRP) CBC W/AUTO [id number] 12:39:00 Test Item Value Reference Range Interpretation Comments WHITE BLOOD CELL (test 7.6 K/mm3 5.8-11.0 N code = WBC) RED BLOOD CELL (test 4.39 M/mm3 4.2-5.4 N code = RBC) HEMOGLOBIN (test code = 13.2 g/dL 12-16 N HGB) HEMATOCRIT (test code = 39.9 % 37-47 N HCT) MEAN CELL VOLUME (test 91 fL 80-98 N code = MCV) MEAN CELL HGB (test code 30.1 pg 27-34 N = MCH) MEAN CELL HGB 33.1 g/dL 30.8-34.1 N CONCENTRATION (test code = MCHC) RED CELL DISTRIBUTION 13.4 % 11-16 N WIDTH (test code = RDW) PLT (test code = PLT) 209 K/mm3 130-400 N MEAN PLATELET VOLUME 11.1 fL 8.9-12.1 N (test code = MPV) NEUTROPHIL % (test code 53.7 % 45-70 N = NT%) LYMPHOCYTE % (test code 22.0 % 20-40 N = LY%) MONOCYTE % (test code = 10.8 % 3-10 H MO%) EOSINOPHIL % (test code 12.3 % 1-5 H = EO%) BASOPHIL % (test code = 0.8 % 0.0-1.1 N BA%) NEUTROPHIL # (test code 4.06 K/mm3 2.00-7.50 N = NT#) LYMPHOCYTE # (test code 1.66 K/mm3 1.50-4.00 N = LY#) MONOCYTE # (test code = 0.82 K/mm3 0.2-0.8 H MO#) EOSINOPHIL # (test code 0.93 K/mm3 0.04-0.4 H = EO#) BASOPHIL # (test code = 0.06 K/mm3 0.02-0.10 N BA#) MANUAL DIFF REQUIRED YES MANUAL DIFF MANUAL DIFF (test code = MDIFF) REQUIRED . NUCLEATED RED BLOOD CELL 0 % 0-0 N (test code = NRBC) POCT URINALYSIS W SPECIFIC [id number] 16:01:00 Test Item Value Reference Range Interpretation Comments POCT U SP GRAV (test 1.015 mg/dl 1.005-1.025 code = 3255) POCT PH U (test code = 5 mg/dl 5-8 3254) POCT U LEUK EST (test ++ Negative - code = 7203) Negative POCT U NIT (test code positive Negative - = 3262) Negative POCT U PROT (test code trace Negative - = 3259) Negative POCT U GLU (test code normal Negative - = 3256) Negative POCT U KETONE (test negative Negative - code = 3258) Negative POCT U UROBILI (test normal 0.2-1 code = 3260) POCT U BILI (test code negative Negative - = 3261) Negative POCT U BLD (test code trace Negative - = 3257) Negative POCT U COLOR (test dark yellow code = 3266) POCT U APPEAR (test cloudy code = 3267) HARRIET (test code = HARRIET) accurate development and interpretation of all internal controls Lab Interpretation Abnormal (test code = 00396-6) [facility] Notes Date/Time Note Provider Source 2022-01-26 17:22:00-00:00 [id number] [place] [address] PATIENT NAME: VALENTINO DALAL ADMIT DATE: 01/19/22 ACCOUNT NO: [id number] ROOM NO: .[facility] AGE: 66 REPORT TYPE: OPERATIVE REPORT SEX: F ADMITTING PHYSICIAN:Fabricio Cartagena MD ATTENDING PHYSICIAN:Fabricio Cartagena MD OPERATION DATE: 01/19/2022 SURGEON: Vineet Weeks MD COOK TACO: Fabricio Cartagena MD PREOPERATIVE DIAGNOSIS: Periprosthetic fracture around internal prosthetic right hip joint, intraoperative fracture (ICD-10 , #M97.01XA). POSTOPERATIVE DIAGNOSIS: Periprosthetic fracture around internal prosthetic right hip joint, intraoperative fracture (ICD-10 , #M97.01XA). PROCEDURE: 1. Open reduction internal fixation of periprost hetic right femoral shaft fracture. 2. Open reduction and internal fixation of right periprosthetic greater trochanteric fracture. ANESTHESIA: Per anesthesia team and general endo tracheal. COMPLICATIONS: None. TOURNIQUET TIME: None used. DESCRIPTION OF PROCEDURE: During the course of a complex revision total hip arthroplasty, Dr. Cartagena noted a fracture of th e greater trochanter and the right femoral shaft. He called myself, Dr. Vineet Weeks of the trauma service with an intraoperative consu lt to fixate this complex right periprosthetic femur fracture involving the right femoral shaft and g reater trochanter. After Dr. Cartagena had placed the femor al stem, the case was turned over to Dr. Weeks for stabilization of the greater trochanteric fractu re as well as the complex comminuted shaft fracture. The exposure was extended. Cheyanne Weeks performed the longitudinal incision over the distal femur. Dissection was carried down th rough skin and subcutaneous tissue. Hemostasis was achieved using electrocau dafne. Dissection was carried down through the layers of tissue to the lateral aspect of the femur. Next, a Synthes periprosthetic plate with a grea ter trochanteric hook was fashioned to the lateral asp ect of the femur. Reduction was performed with bone reduction forceps and the greater trocha nteric fracture as well as the femoral shaft fracture were reduced and stabilized using multiple locking screws. PATIENT NAME: VALENTINO DALAL Excellent stability was achieved. This was a com plex fracture and required multiple manipulations. It also required the skilled assistance of Dr. Cartagena as this case required four skilled hands and two skilled hands would not have been able to complete such a procedure. After stabilization, Dr. Mario trivedi continued with the hip replacement arthroplasty and completed this revision and then performed w ound closure. Following this, bulky sterile dressings were applied. An esthesia was reversed, the patient was taken to the recovery room, where it was noted that the toes had good capillary refill. The skilled assistance of Dr. Fabricio dodson the fracture fixation portion was necessary because it was complex and required sophisticated instrumentation. Dr. Cartagena assisted with every aspect of the op eration including but not limited to proper and safe positioning of the pa tient, obtaining adequate surgical exposure, manipulat ion of surgical instruments and the delicate task of providing suction to the surgical wound. In addition, Dr. Cartagena assisted with reduction and fixation of this intraoperative periprosthetic fracture. He also performed wound closure. Dr. Cartagena' assistance allowed me to pe rform the most sensitive and technical portions of this operation using two rodriguez ds thus enhancing patient safety. This would not be possible without the help of the josette gautam land surveyor assistant familiar with the procedure and capable safely performing the aforementioned tasks. Dictated By: Vineet Weeks MD Date Dictated: 01/26/2022 17:22:48 Date Transcribed: 01/26/2022 20:46:00 ARABELLA/ROHAN Receipt ID: [id number] Authenticated by Vineet Weeks MD On 09:31:57 AM at 0931 PATIENT NAME: VALENTINO DALAL 2022-01-24 16:57:00-00:00 [facility]) Clinical Note REPORT#:[id number] REPORT STATUS: Signed DATE:01/24/22 TIME: 1656 PATIENT: VALENTINO DALAL UNIT #: [id number] ROOM/BED: [address] : 56 AGE: 66 SEX: F ATTEND: Mary Cartagena MD ADM AUTHOR: Brant Inman MD * ALL edits or amendments must be made on the [employer]/computer document * Clinical Note Note: Progress Note Dictated [id number] Electronically Signed by Brant Inman MD o n 01/24/22 at 1701 RPT #:[id number] END OF REPORT 2022-01-24 15:31:00-00:00 [id number] [place] [address] PATIENT NAME: VALENTINO DALAL ADMIT DATE: 01/19/22 ACCOUNT NO: [id number] ROOM NO: [facility] AGE: 66 REPORT TYPE: PROGRESS NOTE SEX: F ADMITTING PHYSICIAN:Fabricio Cartagena MD ATTENDING PHYSICIAN:Fabricio Cartagena MD DATE: 01/24/2022 The patient is seen in her room. The patient's brother and son are present. The patient states that she is doing better toda y. The patient feels the pain is under better control at this time. The patient does have pain primarily in her righ t thigh anteriorly. Some cramping and spasm is present, but less intense. The patient states the pain overall is about a 4 on a scale of 0 to 10. No nausea. Motor exam does show good strength in both arms. Good strength in the left leg. Good strength in the right anterior tibialis mus randy. Vital signs reviewed. Blood pressure is 141/83, pulse rate 101, respirations 15. Temperature is 36.9 Celsius. Oxygen saturation is 96%. Medications reviewed. The patient is on Robaxin 500 mg q. 6 hours to help reduce muscle spasm. We will dispense 40 pills w ith 1 refill. The patient is instructed to take it as schedule d for the first 10 days, then p.r.n. muscle spasm thereafter. The patient is also on Toradol, which will be di scontinued at the time of discharge. The patient is on famotidine 40 mg q.a.m. and as pirin 81 mg b.i.d. The patient is on her baseline of amlodipine 5 m g daily for blood pressure control. PATIENT NAME: VALENTINO DALAL The patient will be discharged on tramadol 50 mg q. 6 hours for muscle spasm. Dispensed 30 pills with 1 refill. The patient is instructed to take as scheduled q . 6 hours for a week, then p.r.n. muscle spasm thereafter. The patient will also be discharged on [place] 5 m g q. 6 hours p.r.n. for pain, dispensed 32 pills. The patient is instr ucted to take it q. 6 hours p.r.n. for breakthrough pain symptoms. The patient to follow up with Dr. Cartagena [facility]. Dictated By: Brant Inman MD Date Dictated: 01/24/2022 15:31:37 Date Transcribed: 01/24/2022 17:20:57 RADHA/ARNULFO/YOLANDA/ROLO Receipt ID: [id number] CC: Fabricio Cartagena MD Authenticated by Brant Inman MD On 01/31 04:51:20 PM at 0451 PATIENT NAME: VALENTINO DALAL 2022-01-24 08:38:00-00:00 [facility] ([facility]) Discharge Summary REPORT#:[id number] REPORT STATUS: Signed DATE:01/24/22 TIME: 837 PATIENT: VALENTINO DALAL UNIT #: [id number] ROOM/BED: .507-A : 56 AGE: 66 SEX: F ATTEND: Mary Cartagena MD ADM AUTHOR: Elida Yanes * ALL edits or amendments must be made on the [employer]/computer document * General Information Discharge date: 01/24/22 Discharge diagnosis: RIGHT HIP LOOSE HARDWARE Hospital course: Discharge Diagnosis: Right Hip Degenerative Dise ase Procedure: Right Hip REVISION Arthroplasty Hospital Course and Findings The patient underwent the pr ocedure without incident. Findings were significant for degenerative disease of the hip. The patient was hemodynamically and medically monitored during the postoperative per iod. Anticoagulation was instituted for postoperative DVT prophylaxis. Th e patient was progressively able to tolerate PO pain med ications and the appropriate diet. Physical therapy was instituted, with a progressive ability to am bulate and perform exercises. The patient was eventually deemed stable and saf e for discharge. At discharge, the patient w as comfortable, with a controlled pain level. There were no chest or abdominal symptoms present. Dis charge physical examination demonstrated stable vital signs and no acute dis tress. The patient had an intact wound with no signifi cant drainage, and no calf tenderness and a negative Endy s sign bilaterally. There were no neurolog ic or vascular deficits or changes from the preoperative state. Disposition: Discharged to home Discharge Condition: Stable Instructions: Instruction sheet given to patient Activity: weight-bearing as instructed in the ho spital. Weight bearing limitations were reviewed with the patient ida g the hospitalization. Diet: As per preoperatively Prescriptions 1. Pain Medications: As per discharge prescription, with progressive weaning as pain decreases 2. Anticoagulation: As per discharge prescription, or PreOp anticoa gulant, as discussed with patient Follow-up Appointment: Patient instructe d to arrange appointment for an office visit in 2 weeks Med Rec Med Rec Discharge meds: Continue taking these medications: tiZANidine (ZANAFLEX) 4 MG TAB 4 MILLIGRAM ORAL BEDTIME. amLODIPine (NORVASC) 5 MG TAB 5 MILLIGRAM ORAL DAILY AT NOON. NITROGLYCERIN (NITROSTAT) (Unknown Strength) TAB .SL Unknown Dose SUBLINGUAL EVERY 5 MINUTES NEED ED. as needed for CHEST PAIN CALCIUM CARBONATE (TUMS) 200 MG CALCIUM (500 MG) TAB.CHEW 500 MILLIGRAM ORAL PRN as needed for WITH NTG HYDROcodone/APAP (HYDROcodone/APAP 10/325) 10 MG -325 MG TAB 1 TABLET ORAL EVERY 6 HOURS. traMADol (ULTRAM) 50 MG TAB 50 MILLIGRAM ORAL EVERY FOUR HOURS. Start taking the following new medications: ASPIRIN (ASPIRIN) 81 MG TAB.CHEW 81 MILLIGRAM ORAL TWICE DAILY. Qty = 30 No Refills DOXYCYCLINE HYCLATE (VIBRAMYCIN) 100 MG CAP 100 MILLIGRAM ORAL TWICE DAILY. Qty = 14 No Refills methocarbamoL (ROBAXIN) 500 MG TAB 500 MILLIGRAM ORAL FOUR TIMES A DAY. Qty = 60 No Refills MELOXICAM (MOBIC) 15 MG TAB 15 MILLIGRAM ORAL DAILY. Qty = 30 No Refills Discharge Instructions PCP PCP: PCP: Fabricio Cartagena MD Discharge Instructions Additional Discharge Routines: None at 0841 at 1647 RPT #:[id number] END OF REPORT 2022-01-23 17:10:00-00:00 [facility] ([facility]) Clinical Note REPORT#:[id number] REPORT STATUS: Signed DATE:01/23/22 TIME: 1709 PATIENT: VALENTINO DALAL UNIT #: [id number] ROOM/BED: [address] : 56 AGE: 66 SEX: F ATTEND: Mary Cartagena MD ADM AUTHOR: Brant Inman MD * ALL edits or amendments must be made on the [employer]/computer document * Clinical Note Note: Consult Note Dictated [id number] Electronically Signed by Brant Inman MD o n 01/23/22 at 1713 RPT #:[id number] END OF REPORT 2022-01-23 13:06:00-00:00 [id number] [address] PATIENT NAME: VALENTINO DALAL ADMIT DATE: 01/19/22 ACCOUNT NO: [id number] ROOM NO: [facility] AGE: 66 REPORT TYPE: CONSULTATION REPORT SEX: F ADMITTING PHYSICIAN:Fabricio Cartagena MD ATTENDING PHYSICIAN:Fabricio Cartagena MD CONSULTATION DATE: 01/23/2022 I constantly cover this consultation out to Meenakshi Cartagena M.D. The patient is a 66-year-old woman, , r ight hand, right footed. The patient is being seen at the request of Dr. Adorno for neurologic evaluation of pain symptoms and medication manag ement. The patient was admitted to [facility] on January 19. The patient had sustained a fall at home earlier in May 2021. The patient was diagnosed as having a right femu r fracture. The patient did undergo initial surgery on or ab out 05/16/2021. The patient did have a right hip hemiarthroplast y. The patient has had an increase of pain in the r ight hip area. The patient's pain is radiating to the right thi gh. She has also had pain in the right groin. The patient has had low back pain. The patient has had cramping and spasm, low back , right hip, right groin and right thigh area. She has had some weakness in t he legs. No numbness or tingling in the legs or feet. No incontinence of urine or stool. No blurred vision, diplopia or loss of vision. PAST MEDICAL HISTORY: 1. Hypertension. 2. Supraventricular tachycardia. 3. Cardiac ablation in 1996. 4. Gastroesophageal reflux disease. PAST SURGICAL HISTORY: PATIENT NAME: VALENTINO DALAL 1. Left total hip arthroplasty, 2010 2. Hysterectomy, 2013. REVIEW OF SYSTEMS: EYES: No blurred vision. ENT: No dizziness. PULMONARY: No chest pain, cough or hemoptysis. CARDIOVASCULAR: The patient does have a history of hypertension. The patient did have cardiac ablation in 1996 for treatment of supraventricular tachycardia. GASTROINTESTINAL: The patient does have epigastr ic pain. GENITOURINARY: The patient did have a hysterecto my. MUSCULOSKELETAL: As above. NEUROLOGICAL: As above. PSYCHIATRIC: The patient states in the past jamar h, pain has made her energy level to be less. Pain does interfere with her g etting sleep and staying asleep. Pain has made her nervous, restless, dep ressed and forgetful. MEDICATIONS: Prior to this admission include nit roglycerin p.r.n. chest pain, tizanidine 4 mg at bedtime, amlodipine 5 mg vasyl y at noon and also calcium carbonate ____ p.r.n. DRUG ALLERGIES: PENICILLIN AND VANCOMYCIN. SOCIAL HISTORY: The patient stopped smoking ciga rettes in approximately 2010. Prior to that, the patient smoked 2.5 to 3 packs a day for 31 years. The patient does not drink alcohol. The patient does not take street drugs. The patient is . She does live in a 1-l evel house. The patient's son and grandchild live with her. The patient did have surgery on January 19. The patient was diagnosed as having a loose righ t total hip arthroplasty. The patient to undergo revision of right total h ip arthroplasty and open reduction internal fixation of right femur fract ure. The patient is now touchdown weightbearing in e right leg. Postoperatively, the patient was prescribed Roba alban ____ mg q. 6 hours p.r.n. muscle spasm. The patient also prescribed Toradol 50 mg IV pus h q. 6 hours p.r.n. pain. The patient was prescribed Tramadol 50 m g q. 6 hours p.r.n. moderate levels of pain. The patient also prescribed oxycodone 5 mg q. 4 hours p.r.n. moderate levels of pain and oxycodone 10 mg q. [address] levels of pain. PATIENT NAME: VALENTINO DALAL The patient did have pain increased yesterday. The patient was started on a pain pump with hydromorphone, Dilaudid, dose 0.1 mg delay 8 minutes, 1 hour limit of 0.8 mg. PHYSICAL EXAMINATION: EYES: Pupils are equal, 3 mm in size. Extraocula r movements, visual johnson intact. NEUROLOGIC: Mental status: The patient is alert. She is oriented to place and to year. The patient could subtract serial 7s x2 to 86. The patient reversed presidents x2 to Cristino Bentley. Short-term memory intact to 3/3 objects. The patient states that her righ t hip, right leg pain is a 5 now on a scale of 0-10, yesterday was an 8 on a scale of 0-10. Cranial n erves II, III, IV, and as above. V, VII through XII intact. Motor exam, go od strength in the arms and legs. Sensory exam intact to light touch. Reflex es 2 at the biceps, 2 at the wrist, zero at both knees, zero at both ankles. CLINICAL DIAGNOSES: 1. History of right femur fracture in May 2021 . 2. Right hip hemiarthroplasty performed on or ab out 05/16/2021. 3. Loose hardware. 4. Right total hip arthroplasty revision. 5. Open reduction internal fixation of right fem ur fracture. 6. Musculoskeletal spasm, low back, right hip, r ight leg. 7. Hypertension. 8. Gastroesophageal reflux disease. 9. History of supraventricular tachycardia and c ardiac ablation in 1996. TREATMENT: Will continue pain pump overnight thr ough tomorrow a.m. We will make the Robaxin schedule as opposed to p.r.n. 5 mg q. 6 hours. If pain does remain better controlled, we will w pete and stop the pain pump tomorrow and place her back on pain pills. The p atient agrees with same ____. Dictated By: Brant Inman MD Date Dictated: 01/23/2022 13:06:44 Date Transcribed: 01/23/2022 19:03:28 RADHA/MEI/BRANT/ROLO Receipt ID: [id number] Authenticated by Brant Inman MD On 01/31 04:51:16 PM at 0451 PATIENT NAME: VALENTINO DALAL 2022-01-23 07:05:00-00:00 [facility]) Pain Management Progress Note REPORT#:[id number] REPORT STATUS: Signed DATE:01/23/22 TIME: 704 PATIENT: VALENTINO DALAL UNIT #: [id number] ROOM/BED: [facility]-A : 56 AGE: 66 SEX: F ATTEND: Mary Cartagena MD ADM AUTHOR: Indra Humphries APRN * ALL edits or amendments must be made on the [employer]/computer document * Subjective Chief complaint: Post OP Pain Management Requested by Surgeon Right hip and Right Leg pain s/p Right Hip Arthr oplasty Revision with ORIF of periprosthetic femur fracture HPI: Interval History: Right hip and Right Leg pain s /p Right Hip Arthroplasty Revision with ORIF of periprosthetic fem ur fracture. Consultation requested by Dr Cartagena to initiate CASH REGISTER BALANCER pump for patient last night. Patient reports her pain is primarily in the rig ht anterior and lateral thigh area, not so much the hip. Due to the pain, patient's ability to frankie ate walking is limited to the door of her room. Patient ra ian severe pain 9-12/19 with an inability to sleep. Patient reports significant improved pain management with the CASH REGISTER BALANCER pump, now 3-. Patient reports finally getting a good nigh t's sleep. Dr Inman contacted nursing staff this AM and he will see the patient today Comments: Vital Signs: Date Time Temp Pulse Resp B/P B/P Pulse O2 O2 F low FiO2 Mean Ox Delivery Rate 01/23 0702 36.9 79 16 153/66 95.1 100 Room air 01/23 0538 35.5 80 16 159/80 106.2 100 Room air 01/23 0031 99 Room air 21 01/22 2202 36.1 78 16 137/66 90.1 97 Room air 01/22 1923 35.8 84 16 152/74 99.8 98 Room air 01/22 1920 Room air History: PMH: SVT-Ablation 1996, HTN, GERD, FORMER SMOKE R 3PPD X 40 YRS POD: 4 Medication: DILAUDID Pump settings: BASAL RATE: O DOSE: 0.1MG DELAY: 8 MIN CASH REGISTER BALANCER Use: Moderate Activity status: OOB Pain: 3/10 Physical Exam: VAS: 3/10 LOS: Awake, Alert, Oriented Resp Quality: Regular, Unlabored, Even Side Effects: None PATIENT RESTING IN BED WATCHING TV AND APPEARS COMFORTABLE AND WELL RESTED Plan: CONTINUE CASH REGISTER BALANCER PUMP PATIENT TO BE SEEN BY DR INMAN IN THE AM. at 0732 RPT #:[id number] END OF REPORT 2022-01-22 09:09:00-00:00 [facility] ([facility]) Clinical Note REPORT#:[id number] REPORT STATUS: Signed DATE:01/22/22 TIME: 09 PATIENT: VALENTINO DALAL UNIT #: [id number] AGE: 66 SEX: F ATTEND: Mary Cartagena MD ADM AUTHOR: Fabricio Cartagena MD * ALL edits or amendments must be made on the [employer] document * Clinical Note Note: Able to walk to the door yesterday. Pain signifi cant. No Shortness of breath or chest symptoms. Afebrile VSS Alert, oriented, no acute distress Wound clean and dry. No significant drainage. Neurologic and vascular systems intact distally. (-) Endy s (-) Calf tenderness A/P: s/p Joint Arthroplasty 1)Anticoagulation instituted 2)PT progressing 3)Following labs 4)Discharge planning - likely tomorrow 5) Will add a couple more days of Torad ol, as it helps significantly with her pain Last Documented: Result Date Time Pulse Ox 95 01/22 717 B/P 158/49 01/22 717 B/P Mean 85.5 01/22 717 O2 Delivery Room air 01/22 717 Temp 96.4 01/22 717 Pulse 70 01/22 717 Resp 18 01/22 717 FiO2 32 01/20 0306 O2 Flow Rate 3 01/20 0306 at 0910 [facility] #:[id number] END OF REPORT 2022-01-21 11:20:00-00:00 [facility]) Orthopaedic Progress Note REPORT#:[id number] REPORT STATUS: Signed DATE:01/21/22 TIME: 1119 PATIENT: VALENTINO DALAL UNIT #: [id number] ROOM/BED: [address] : 56 AGE: 66 SEX: F ATTEND: Mary Cartagena MD ADM AUTHOR: Elida Yanes * ALL edits or amendments must be made on the [employer] document * Diagnosis, Assessment Plan Free text A P: Comfortable. Pain moderate. No Shortness of ran ath or chest symptoms. Afebrile VSS Alert, oriented, no acute distress Wound clean and dry. No significant drainage. Neurologic and vascular systems intact distally. (-) Endy s (-) Calf tenderness A/P: s/p Joint Arthroplasty 1)Anticoagulation instituted 2)PT progressing 3)Following labs 4)Discharge planning - will plan to masha p patient here at least one more night due to issues with pain control. Electronically Signed by Elida Yanes on 1 03/23/21 at 1122 at 0908 RPT #:[id number] END OF REPORT 2022-01-20 10:40:00-00:00 [facility]) Orthopaedic Progress Note REPORT#:[id number] REPORT STATUS: Signed DATE:01/20/22 TIME: 1040 PATIENT: VALENTINO DALAL UNIT #: [id number] ROOM/BED: [address] : 56 AGE: 66 SEX: F ATTEND: Mary Cartagena MD ADM AUTHOR: Hafsa Mathew * ALL edits or amendments must be made on the [employer] document * Subjective HPI: Patient sleeping upon exam. No family in the [facility]. Objective VS: Last Documented: Result Date Time Pulse Ox 97 01/20 722 B/P 154/68 01/20 722 B/P Mean 96.5 01/20 722 O2 Delivery Room air 01/20 722 Temp 36.8 01/20 722 Pulse 73 01/20 722 Resp 16 01/20 722 FiO2 32 01/20 306 O2 Flow Rate 3 01/20 306 PATIENT WEIGHT: Weight (lb): 175 Weight (oz): 14.86 Weight (kg): 79.800 Medications: Active Meds + DC'd Last 24 Hrs Ketorolac Tromethamine (TORADOL) 15 MG Q6H PRN P RN IV Famotidine (PEPCID) 40 MG DAILY PO Aspirin (ASPIRIN) 81 MG BID@0600,1700 PO Dexamethasone Sodium Phosphate 10 MG ONCE ONE IV Ketorolac Tromethamine (TORADOL) 15 MG Q6HR IV ( DC) Methocarbamol (ROBAXIN) 500 MG Q6H PRN PRN PO (D C) Docusate Sodium (COLACE) 100 MG BID PO Amlodipine Besylate (NORVASC) 5 MG DAILY 1200 PO Ketorolac Tromethamine (TORADOL) 15 MG Q6H IV Methocarbamol (ROBAXIN) 500 MG Q6H PRN PRN PO Cefazolin Sodium (KEFZOL) 2 GM Q8HR IV Sodium Chloride (SODIUM CHLORIDE) 20 ML ASDIR I V Acetaminophen (TYLENOL) 650 MG Q4H PRN PRN PO Al Hydrox/Mg Hydrox/Simethicone (MAALOX PLUS) 30 ML Q6H PRN PRN PO Benzocaine/Menthol (CEPACOL SORE THROAT LOZENGE) 1 LOZENGE Q2H PRN PRN PO Bisacodyl (BISACODYL 10 MG SUPP) 10 MG ASDIR PRN RECTAL Bisacodyl (bisacodyL) 10 MG DAILY PRN PO Diphenhydramine HCl (BENADRYL) 25 MG Q4H PRN PRN PO Hydromorphone HCl (DILAUDID) 0.5 MG Q6H PRN PRN IV Hydroxyzine (ATARAX) 25 MG Q4H PRN PRN PO (CAN) Lactated Ringer's (LACTATED RINGERS) 1,000 ML .Q 10H IV Magnesium Hydroxide (MILK OF MAGNESIA) 30 ML BED TIME PRN PRN PO Ondansetron HCl (ZOFRAN) 4 MG Q8H PRN PRN IV Oxycodone HCl (ROXICODONE) 5 MG Q4H PRN PRN PO Oxycodone HCl (ROXICODONE) 10 MG Q6H PRN PRN PO Promethazine HCl (PHENERGAN) 12.5 MG Q6H PRN PRN IM Tramadol HCl (ULTRAM) 50 MG Q6H PRN PRN PO Nitroglycerin (NITROSTAT) 0.4 MG Q5M PRN PRN SL Aztreonam (AZACTAM) 1 GM .STK-MED ONE IV (DC) Dexamethasone Sodium Phosphate (DECADRON) 8 MG . STK-MED ONE IV (DC) Esmolol HCl (BREVIBLOC) 100 MG .STK-MED ONE IV ( DC) Fentanyl Citrate (SUBLIMAZE) 100 MCG .STK-MED ON E IV (DC) Hydromorphone HCl (DILAUDID) 2 MG .STK-MED ONE I V (DC) Ketamine HCl (Ketamine HCl) 100 MG .STK-MED ONE IV (DC) Lactated Ringer's (LACTATED RINGERS) 4,000 ML . STK-MED ONE IV (DC) Lidocaine HCl (XYLOCAINE MPF 1% 5 mL) 5 ML .STK- MED ONE IV (DC) Midazolam HCl (VERSED) 5 MG .STK-MED ONE IV (DC) Nicardipine HCl (CARDENE I.V.) 25 MG .STK-MED ON E IV (DC) Ondansetron HCl (ZOFRAN) 4 MG .STK-MED ONE IV (D C) Propofol (DIPRIVAN) 200 MG .STK-MED ONE IV (DC) Rocuronium Cavalier (Rocuronium Cavalier 10 mg/mL) 50 MG .STK-MED ONE IV ( DC) Sodium Chloride (SODIUM CHLORIDE 0.9%) 100 ML .S TK-MED ONE IV (DC) Sugammadex Sodium (Bridion) 200 MG .STK-MED ONE IV (DC) Tranexamic Acid (CYKLOKAPRON) 2,000 MG .STK-MED ONE IV (DC) Vecuronium Cavalier (NORCURON) 10 MG .STK-MED ONE IV (DC) Oxycodone/Acetaminophen (PERCOCET) 1 TAB Q6H PRN PRN PO (DC) Oxycodone/Acetaminophen (PERCOCET) 2 TAB Q6H PRN PRN PO (DC) Cefazolin Sodium (KEFZOL) 0 .STK-MED ONE .ROUTE (DCr) Aztreonam (AZACTAM) 0 .STK-MED ONE .ROUTE (DC) Albumin Human (ALBUMINAR-5) 500 ML .STK-MED ONE IV (DC) Pharmacy Profile Note (CLARIFICATION NEEDED) PAT IENT W/ CONVULSIONS TO PCN, CAN SHE TOLERATE ANCEF? Nurse Do not delete this Rx. Pharmacy will delete. To remove the admin time, use FD (full document) Given = No Q2HR MISC (DC) Fentanyl Citrate (SUBLIMAZE) 25 MCG PACU Q5MIN P RN PRN IV (DC) Hydralazine HCl (hydrALAZINE HCL) 10 MG PACU Q10 MIN PRN PRN IV (DC) Hydrocodone Bitart/Acetaminophen (NORCO 5/325 TA BLET) 1 UDTAB PACU Q4H PRN PRN PO (DC) Hydrocodone Bitart/Acetaminophen (NORCO 10/325 T ABLET) 1 UDTAB PACU Q4H PRN PRN PO (DC) Hydromorphone HCl (DILAUDID) 0.2 MG PACU Q5MIN P RN PRN IV (DC) Meperidine HCl (MEPERIDINE HCL) 12.5 MG PACU Q5M IN PRN PRN IV (DC) Methocarbamol (ROBAXIN) 500 MG PACU ONCE PRN PO (DC) Metoprolol Tartrate (LOPRESSOR) 2 MG PACU Q10MIN PRN PRN IV (DC) Ondansetron HCl (ZOFRAN) 4 MG PACU ONCE PRN PRN IV (DC) Acetaminophen (TYLENOL) 650 MG PREOP ONCE PO (DC ) Celecoxib (CeleBREX) 200 MG PREOP PO (DC) Lactated Ringer's (LACTATED RINGERS) 1,000 ML OH EOP IV FLUID IV (DC) Lidocaine HCl (XYLOCAINE) 2 ML PREOP SUBQ (DC) Methocarbamol (ROBAXIN) 500 MG PREOP ONCE PO (DC ) Physical Exam Extremities: Right femur with dressing C/D/I. Diagnosis, Assessment Plan Free text A P: POD#1 s/p right JEAN CARLOS with ORIF of periprosthetic fracture - DVT prophylaxis - PT - Pain control - CM on board for d/c planning Electronically Signed by Hafsa Mathew on at 1043 Electronically Signed by Vineet Weeks MD on at 0902 RPT #:[id number] END OF REPORT 2022-01-20 07:00:00-00:00 [facility] ([facility]) Orthopaedic Progress Note REPORT#:[id number] REPORT STATUS: Signed DATE:01/20/22 TIME: 0700 PATIENT: VALENTINO DALAL UNIT #: [id number] ROOM/BED: [id number] : 56 AGE: 66 SEX: F ATTEND: Mary Cartagena MD ADM AUTHOR: Eilda Yanes * ALL edits or amendments must be made on the el ectronic/computer document * Diagnosis, Assessment Plan Free text A P: Comfortable. Pain mild-moderate. No Shortness of breath or chest symptoms. Afebrile VSS Alert, oriented, no acute distress Wound clean and dry. No significant drainage. Neurologic and vascular systems intact distally. (-) Endy s (-) Calf tenderness A/P: s/p Joint Arthroplasty 1)Anticoagulation instituted 2)PT progressing 3)Following labs 4)Discharge planning Electronically Signed by Elida Yanes on 1 03/22/21 at 0700 at 0952 RPT #:[id number] END OF REPORT 2022-01-20 06:58:00-00:00 [id number] [facility] [place] [address] PATIENT NAME: VALENTINO DALAL ADMIT DATE: 01/19/22 ACCOUNT NO: [id number] ROOM NO: [facility] AGE: 66 REPORT TYPE: OPERATIVE REPORT SEX: F ADMITTING PHYSICIAN:Fabricio Cartagena MD ATTENDING PHYSICIAN:Fabricio Cartagena MD OPERATION DATE: PREOPERATIVE DIAGNOSIS: Loosening of right hip a rthroplasty. POSTOPERATIVE DIAGNOSIS: Loosening of right hip arthroplasty and femur fracture. PROCEDURES: 1. Revision right total hip replacement. 2. Open reduction and internal fixation of right femur. SURGEON: Fabricio Dawson M.D. COOK TACO: Vineet Weeks M.D. COMPONENTS USED IMPLANTS: Rubi Biomet Janusz 17 x 250 fully porous coated cylindrical stem with a 58 body and a -6 dual mo bility 44 mm femoral head, a Biomet PPS 56 mm acetabular component. ESTIMATED BLOOD LOSS: 700 mL. FINDINGS: 1. Loosening of femoral stem. 2. Minmimal, cracked proximal cement mantle. 3. Well interdigitated distal cement mantle. 4. Acetabular wear. 5. Right leg was 1.5 cm long preoperatively 6. Cement migration and interdigitation well dis domenico to the stem. PROCEDURE IN DETAIL: The patient was brought to the operating room and placed in supine position. After induction of anesthesi a, she was turned to the left side and secured to the operating table. Right h ip area was sterilely prepped and draped. Incision was made through the patient's old inci antonietta, but the entire old incision was not necessarily at first. Dissectio n was sharply carried down through the subcutaneous tissues, the gl uteus joyce and IT band were incised and split and held open with a Charnley retracto r. The external rotators and capsule were taken down and tagged. The femoral head was dislocated and the stem was found to be loosely swimming within the proximal femur eroding the entire proximal femur. This was removed easily. PATIENT NAME: VALENTINO DALAL The femur was then retracted anteriorly and retr actors were placed around the acetabulum. 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 Labrectomy was performed and soft tissue was removed from the acetabular fossa and then reaming was performed. A size 55 reamer created excellent bleeding bone in all the santizo areas and a 56 mm acetabular component was impacted into position in the correct amount of anteve rsion and lateral opening. This had an excellent scratch fit. A trial dual mobility kelly er was placed. The decision was made to use a dual mobility in this patient who was ligamentously lax and high risk for dislocation, given the revision si tuation. We next came to the painstaking process of cemen t removal. I worked on it for an hour with osteotomes as well as the Ultra anupama bang. The proxiaml cement was easy to remove, but distally, the cement was extremely well interdigitated and for several centimeters distal to the stem, with a solid cement column. During the process, the very thin osteoporotic b one began to fail, and there was noted to be a femoral fracture, which was di splacing. The incison was extended distally, and the fract ure site was exposed. There was also noted to be another separate fracture f ragment. At this point in time, I asked Dr. Nitza barnett to come in to help us with fixation of the femur fracture, given his expertise and t he extremely poor bone quality, so that we could have an intact femur t o work with. Even exposing into the fract ure site, I had significant difficulty removing this well interdigitated distal cement. I had to use the Ultra drive as well as osteotomes for several centimeters until I was a ble to remove all the cement through the fracture site and removed the plasti c plug. Next, the decision was made to proceed w ith implantation of a hip stem all the way down toward the knee, taking advantage of th e intact distal diaphyseal region for fixation. Using a stem with distal fi xation hasd been the plan all along, so these instruments were already availab le. This was reamed over a guidewire and had excelle nt cortical chatter at 17 mm. The stem was then after thorough irrigation open ed and impacted into position and had an excellent scratch fit. A body was prepared for it. A trial body was lashay rudi and the hip was relocated found to have excellent stability in fle xion, internal rotation, with position of sleep, in extension and external rotation. A trial x-ray demonstrated adequate positioning and sizing of the components. The hip was once again redislocated. The final body was impacted into position and locked down and the hip was relocated once a gain. Next, a definitive fracture fixation was perform ed by Dr. Weeks as per his operative report. After thorough irrigation an d a Betadine soak, the external rotators and capsule were closed back to the trochanter through drill holes. PATIENT NAME: VALNETINO DALAL The vastus lateralis was kemal sed over the hardware as much as possible, and then the gluteus joyce and IT band were closed usin g Quill suture. Subcutaneous tissues were closed in a multilayered fa shion using Vicryl and Monocryl suture and david were used for skin. Sterile dressing was applied. The patient was awakened and transported to the recovery room in stable condition having tolerated the procedure well. Dictated By: Fabricio Cartagena MD Date Dictated: 01/20/2022 06:58:26 Date Transcribed: 01/20/2022 07:45:22 SORIN/ZOHRA/BRANT Receipt ID: [id number] Authenticated and Edited by Fabricio Cartagena MD On 01/22/22 7:58:29 AM at 0801 PATIENT NAME: VALENTINO DALAL 2022-01-19 14:23:00-00:00 [facility] ([facility]) Brief Op Note REPORT#:[id number] REPORT STATUS: Signed DATE:01/19/22 TIME: 1423 PATIENT: VALENTINO DALAL UNIT #: [id number] ROOM/BED: [place] [id number] : 56 AGE: 66 SEX: F ATTEND: Mary Cartagena MD ADM AUTHOR: Fabricio Cartagena MD * ALL edits or amendments must be made on the [employer]/computer document * Op/Inv Proc Note - Brief Pre-procedure diagnosis: R LOOSE JEAN CARLOS Post-procedure diagnosis: same as pre procedure dx Procedures performed: R REV JEAN CARLOS Primary Surgeon: OSIEL Co-surgeon: JENNIFER Cigar Packer And Sorter(s): Lana YANES PA-C Findings: LOOSE STEM, ACETABULAR WEAR WELL-EMBEDDED DISTAL CEMENT, WEAKENED BONE Complications: INTRAOP FEMUR FX Estimated blood loss in ml's: 700 CC Specimens removed/altered: none at 2055 RPT #:[id number] END OF REPORT 2021-11-21 11:37:00-00:00 [id number] [place] [address] PATIENT NAME: VALENTINO DALAL ADMIT DATE: ACCOUNT NO: [id number] ROOM NO: AGE: 66 REPORT TYPE: ELECTROCARDIOGRAM SEX: F ADMITTING PHYSICIAN:Fabricio Cartagena MD ATTENDING PHYSICIAN:Fabricio Cartagena MD Order: [id number] Test Reason : PRE-OP CLEARANCE HTN Test Date/Time Stamp: SunNov 21 2021 11:37:34 Blood Pressure : / mmHG Vent. Rate : 058 BPM Atrial Rate : 058 BPM P-R Int : 112 ms QRS Dur : 098 ms QT Int : 424 ms P-R-T Axes : 012 -08 061 degree s QTc Int : 416 ms Sinus bradycardia Otherwise normal ECG When compared with ECG of 07-DEC-2014 12:02, No significant change was found Confirmed by DOM FORBES MD ([id number]) on 11/22/2021 5:35:29 PM Referred By: Fabricio Cartagena Confirmed by:RENARD FORBES MD PATIENT NAME: VALENTINO DALAL
--- NOTE | 2022-07-31 19:42 | RAD REPORT ---
EXAM DESCRIPTION: CT - Head Brain Wo Cont - 07/31/2022 7:11 pm CLINICAL HISTORY: HEADACHE COMPARISON: No comparisons TECHNIQUE: All CT scans are performed using dose optimization technique as appropriate and may inclu de automated exposure control or mA/KV adjustment according to patient size. FINDINGS: No intracranial hemorrhage, hydrocephalus or extra-axial fluid collection.No areas of brai n edema or evidence of midline shift. The paranasal sinuses and mastoids are clear. The calvarium is intact. IMPRESSION: No acute intracranial abnormality.
[2022-07-31] MEDS ORDERED: HYDROMORPHONE HCL 1 MG/ML INJ ONE (20:27)
[2022-07-31] MEDS ORDERED: ONDANSETRON 4 MG/2 ML VIAL ONE (20:27)
[2022-07-31] MEDS ORDERED: LABETALOL 20 MG/4ML SYRINGE IV ONE (20:28)
[2022-07-31 20:53] LABS: Absolute Lymphocytes (CBC) 1.7 K/uL (0.7-4.9); Hematocrit 32.4 % (36.0-45.0); Lymphocytes % 27.7 % (15.3-44.8); MCV 77.8 fL (80-100); MPV 8.8 fL (7.6-11.3); RBC Red Blood Cell Count 4.17 M/uL (3.86-4.86)
[2022-07-31 20:54] LABS: Protime INR 0.96
[2022-07-31] MEDS ORDERED: OXYMETAZOLINE HCL 0.05% 15ML NAS ONE (21:02)
[2022-07-31 21:09] LABS: Potassium 3.9 mEq/L (3.5-5.1)
[2022-07-31] MEDS ORDERED: NA CHLORIDE 0.9% 50 ML ONE ×2 (21:48→21:55)
[2022-07-31] MEDS ORDERED: DIPHENHYDRAMINE 50 MG/ML VIAL ONE ×2 (21:48→21:54)
[2022-07-31] MEDS ORDERED: METOCLOPRAMIDE 10 MG/2mL INJ ONE (21:48)
[2022-07-31] MEDS ORDERED: KETOROLAC 30 MG/ML INJ ONE ×2 (21:48→21:54)
--- NOTE | 2022-07-31 22:49 | EDPHYS ---
Physician Documentation [facility] Name: Bernadine Dalal Age: 67 yrs Sex: Female : 1955 Arrival Date: 07/31/2022 Time: 17:47 Bed 5 Private MD: Patric Cole E ED Physician Artemio Oseguera HPI: 07/31 21:29 This 67 yrs old Female presents to ER via Ambulatory with complaints of Nose sp4 Bleed, Headache. 21:29 A very pleasant 67-year-old female presents with headache and an episode of nosebleed sp4 since starting 4 days ago.. Historical: - Allergies: 18:14 PENICILLINS; aa5 18:14 Vancomycin; aa5 - PMHx: 18:14 Chronic pain; fall/L hip fx, L hip infected after FX; Migraines; prolapsed uterus; SVT; aa5 UTI; 18:14 Hypertensive disorder; Brain cyst; aa5 - PSHx: 18:14 Left hip replacement; Right hip replacement; aa5 - Immunization history:: Adult Immunizations unknown. - Social history:: Smoking status: Patient denies any tobacco usage or history of. - Family history:: not pertinent. ROS: 23:32 Constitutional: Negative for fever, chills, and weight loss. sp4 Vital Signs: 18:14 BP 181 / 84; Pulse 72; Resp 18 S; Temp 98.5(O); Pulse Ox 99% on R/A; Weight 78.93 kg aa5 (R); Height 5 ft. 7 in. (R); 20:00 BP 160 / 66; Pulse 66; Pulse Ox 100% ; vc1 20:27 BP 156 / 76; Pulse 78; kl 21:45 BP 145 / 67; Pulse 68; Resp 15; Pulse Ox 99% ; vc1 18:14 Body Mass Index 27.25 (78.93 kg, 170.18 cm) aa5 MDM: 18:28 Patient medically screened. sp3 07/31 18:27 Order name: Basic Metabolic Panel; Complete Time: 21:36 sp3 07/31 18:27 Order name: CBC with Diff; Complete Time: 21:36 sp3 07/31 18:27 Order name: PT-INR; Complete Time: 21:36 sp3 07/31 18:27 Order name: Troponin HS; Complete Time: 21:36 sp3 07/31 18:27 Order name: CT Head Brain wo Cont: Known prior cysts; Complete Time: 20:11 sp3 07/31 18:27 Order name: EKG; Complete Time: 18:28 sp3 07/31 18:27 Order name: NPO; Complete Time: 20:58 sp3 07/31 18:27 Order name: Cardiac monitoring; Complete Time: 20:57 sp3 07/31 18:27 Order name: EKG - Nurse/Tech; Complete Time: 20:57 sp3 07/31 18:27 Order name: IV Saline Lock; Complete Time: 20:42 sp3 07/31 18:27 Order name: Labs collected and sent; Complete Time: 20:42 sp3 07/31 18:27 Order name: O2 Sat Monitoring; Complete Time: 20:57 sp3 Administered Medications: 20:21 Drug: HYDROmorphone IVP 1 mg Route: IVP; Site: right antecubital; kl 23:32 Follow up: Response: No adverse reaction; Pain is decreased kd3 20:26 Drug: Ondansetron IVP 4 mg Route: IVP; Site: right antecubital; kl 23:33 Follow up: Response: No adverse reaction; Nausea is decreased kd3 20:58 Drug: Oxymetazoline Intranasal Drops (0.05 %) 2 sprays Route: Intranasal; Site: left vc1 nare; 21:59 Drug: Ketorolac IVP 30 mg Route: IVP; Site: right antecubital; vc1 23:33 Follow up: Response: No adverse reaction; Pain is decreased kd3 21:59 Drug: metoCLOPramide IVP 10 mg Route: IVP; Site: right antecubital; vc1 23:33 Follow up: Response: No adverse reaction kd3 21:59 Drug: diphenhydrAMINE IVP 25 mg Route: IVP; Site: right antecubital; vc1 23:33 Follow up: Response: No adverse reaction kd3 23:32 Not Given (blood pressure within defined parameter ): Labetalol IV 10 mg IV at kd3 calculated rate once Disposition Summary: 07/31/22 22:48 Discharge Ordered Location: Home sp4 Problem: new sp4 Symptoms: have improved sp4 Condition: Stable sp4 Diagnosis - Migraine without aura, intractable sp4 - Epistaxis sp4 - Acute anterior epistaxis left nostril, exacerbation of migraine headache, elevated sp4 blood pressure Followup: sp4 - With: Mariangel Aviles MD - When: 7 - 10 days - Reason: Recheck today's complaints Discharge Instructions: - Discharge Summary Sheet sp4 - Chronic Migraine Headache sp4 Forms: - Medication Reconciliation Form sp4 Prescriptions: - Fioricet 50-300-40 mg Oral capsule - take 1 capsule by ORAL route every 4 to 6 hours as needed for headache; 30 sp4 capsule; Refills: 0, Product Selection Permitted - oxymetazoline 0.05 % Nasal spray, non-aerosol - spray 3 spray by INTRANASAL route every 12 hours for 5 days as needed for nasal sp4 congestion or nasal bleeds; 1 unit; Refills: 0, Product Selection Permitted Signatures: Dispatcher [employer] EDEdilma Thomas, RN RN kl Julia Noyola RN RN aa5 Lesly Moser MD MD sp3 Erika Fish RN RN vc1 Artemio Oseguera MD MD sp4 Chrissie Grossman RN kd3
--- NOTE | 2022-07-31 22:49 | ER ---
Nurse's Notes [facility] Name: Bernadine Dalal Age: 67 yrs Sex: Female : 1955 Arrival Date: 07/31/2022 Time: 17:47 Bed 5 Private MD: Patric Cole E Diagnosis: Migraine without aura, intractable;Epistaxis;Acute anterior epistaxis left nostril, exacerbation of migraine headache, elevated blood pressure Presentation: 07/31 18:14 Chief complaint: Patient states: nose bleed to left nare on and off since Sunday, pt aa5 also reports migraine. Reports she sees a surgical oncologist and has not been taking antihypertensive medication since May 2021. 18:14 Onset of symptoms was July 2022. aa5 18:14 Method Of Arrival: Ambulatory aa5 18:14 Coronavirus screen: At this time, the client does not indicate any symptoms associated aa5 with coronavirus-19. Ebola Screen: Patient denies travel to an Ebola-affected area in the 21 days before illness onset. Initial Sepsis Screen: Does the patient meet any 2 criteria? No. Patient's initial sepsis screen is negative. Does the patient have a suspected source of infection? No. Patient's initial sepsis screen is negative. Risk Assessment: Do you want to hurt yourself or someone else? Patient reports no desire to harm self or others. 18:14 Acuity: JODEE 3 aa5 Triage Assessment: 18:14 General: Appears comfortable. EENT: no active nose bleed noted. aa5 23:37 Headache History: Denies prior headaches. General: Behavior is calm, cooperative. Pain: kd3 Pain at worst was 8 out of 10 on a pain scale. Pain began gradually, Also complains of photophobia. Historical: - Allergies: 18:14 PENICILLINS; aa5 18:14 Vancomycin; aa5 - PMHx: 18:14 Chronic pain; fall/L hip fx, L hip infected after FX; Migraines; prolapsed uterus; SVT; aa5 UTI; 18:14 Hypertensive disorder; Brain cyst; aa5 - PSHx: 18:14 Left hip replacement; Right hip replacement; aa5 - Immunization history:: Adult Immunizations unknown. - Social history:: Smoking status: Patient denies any tobacco usage or history of. - Family history:: not pertinent. Screenin:58 [facility] ED Fall Risk Assessment (Adult) History of falling in the last 3 months, vc1 including since admission No falls in past 3 months (0 pts) Confusion or Disorientation No (0 pts) Intoxicated or Sedated No (0 pts) Impaired Gait No (0 pts) Mobility Assist Device Used No (0 pt) Altered Elimination No (0 pt) Score/Fall Risk Level 0 - 2 = Low Risk Oriented to surroundings, Maintained a safe environment, Educated pt \T\ family on fall prevention, incl call for assistance when getting out of bed. Abuse screen: Denies threats or abuse. Nutritional screening: No deficits noted. Tuberculosis screening: No symptoms or risk factors identified. Assessment: 20:40 Reassessment: Patient and/or family updated on plan of care and expected duration. Pain vc1 level reassessed. Patient is alert, oriented x 3, equal unlabored respirations, skin warm/dry/pink. Neuro: Level of Consciousness is awake, alert, obeys commands, Oriented to person, place, time, situation, Appropriate for age. 22:09 Reassessment: No changes from previously documented assessment. Patient and/or family vc1 updated on plan of care and expected duration. Pain level reassessed. Patient is alert, oriented x 3, equal unlabored respirations, skin warm/dry/pink. Vital Signs: 18:14 BP 181 / 84; Pulse 72; Resp 18 S; Temp 98.5(O); Pulse Ox 99% on R/A; Weight 78.93 kg aa5 (R); Height 5 ft. 7 in. (R); 20:00 BP 160 / 66; Pulse 66; Pulse Ox 100% ; vc1 20:27 BP 156 / 76; Pulse 78; kl 21:45 BP 145 / 67; Pulse 68; Resp 15; Pulse Ox 99% ; vc1 18:14 Body Mass Index 27.25 (78.93 kg, 170.18 cm) aa5 ED Course: 17:50 Patient arrived in ED. mr 17:50 Patric Cole MD is Private Physician. mr 18:14 Lesly Moser MD is Attending Physician. sp3 18:14 Arm band placed on Patient placed in an exam room, on a stretcher. aa5 18:22 Tracee Prater RN is Primary Nurse. jl7 18:32 Triage completed. aa5 19:12 CT Head Brain wo Cont: Known prior cysts In Process Unspecified. EDMS 20:20 Inserted saline lock: 20 gauge in right antecubital area, using aseptic technique. kl 20:35 Initial lab(s) drawn, by me, sent to lab. wm 20:40 Erika Fish, RN is Primary Nurse. vc1 20:42 Basic Metabolic Panel Sent. wm 20:42 CBC with Diff Sent. wm 20:42 PT-INR Sent. wm 20:42 Troponin HS Sent. wm 20:58 Patient has correct armband on for positive identification. Placed in gown. Call light vc1 in reach. Client placed on continuous cardiac and pulse oximetry monitoring. NIBP monitoring applied. 20:58 EKG done, by ED staff. wm 21:29 Attending Physician role handed off by Lesly Moser MD sp4 21:29 Artemio Oseguera MD is Attending Physician. sp4 22:48 Mariangel Aviles MD is Referral Physician. sp4 23:37 No provider procedures requiring assistance completed. IV discontinued, intact, kd3 bleeding controlled, No redness/swelling at site. Pressure dressing applied. Administered Medications: 20:21 Drug: HYDROmorphone IVP 1 mg Route: IVP; Site: right antecubital; kl 23:32 Follow up: Response: No adverse reaction; Pain is decreased kd3 20:26 Drug: Ondansetron IVP 4 mg Route: IVP; Site: right antecubital; kl 23:33 Follow up: Response: No adverse reaction; Nausea is decreased kd3 20:58 Drug: Oxymetazoline Intranasal Drops (0.05 %) 2 sprays Route: Intranasal; Site: left vc1 nare; 21:59 Drug: Ketorolac IVP 30 mg Route: IVP; Site: right antecubital; vc1 23:33 Follow up: Response: No adverse reaction; Pain is decreased kd3 21:59 Drug: metoCLOPramide IVP 10 mg Route: IVP; Site: right antecubital; vc1 23:33 Follow up: Response: No adverse reaction kd3 21:59 Drug: diphenhydrAMINE IVP 25 mg Route: IVP; Site: right antecubital; vc1 23:33 Follow up: Response: No adverse reaction kd3 23:32 Not Given (blood pressure within defined parameter ): Labetalol IV 10 mg IV at kd3 calculated rate once Medication: 20:59 VIS not applicable for this client. vc1 Outcome: 22:48 Discharge ordered by . sp4 23:38 Discharged to home ambulatory. kd3 23:38 Condition: stable 23:38 Discharge instructions given to patient, family, Instructed on discharge instructions, follow up and referral plans. Demonstrated understanding of instructions, follow-up care. 23:38 Patient left the ED. kd3 Signatures: Dispatcher [employer] EDMS Edilma Stahl, RN RN chano DiazNoris, Julia, RN RN aa5 Tracee Prater RN RN [email or web address] Sophie Lagunas Setul, MD MD sp3 Chrissie Grossman RN RN kd3 Erika Fish RN RN vc1 Artemio Oseguera MD MD sp4 Corrections: (The following items were deleted from the chart) 20:59 20:58 EKG done, by ED staff, [facility]
[2022-08-01 00:50] VITALS: TEMP 98.5
[2022-08-01 00:56] VITALS: BP 145/67; O2SAT 99
== END 2022-07-31 23:38 | disposition home or self-care (01) ==
LOC: ER 17:47
DX: G43.019 Migraine without aura, intractable, without status migrainosus (principal); R04.0 Epistaxis; I10 Essential (primary) hypertension; Z96.643 Presence of artificial hip joint, bilateral; Z88.0 Allergy status to penicillin; Z88.3 Allergy status to other anti-infective agents
CPT/HCPCS: 85025; 80048; 36415; 85610; 84484; 70450; J2765; J1200 ×2; J1170; J2405; 93005

== ENCOUNTER 2022-08-26 19:28 | Emergency (ER) | payer OTHER ==
--- OUTSIDE RECORDS SUMMARY | 2022-08-26 19:37 | XMS REPORT | Continuity of Care Document ---
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 Evangeline Evangeline 3-08 Spirit 00:00: - [facility] 00 [facility] Kenalog Kenalog 2020-0 No 40mg Common (Triamcinol (Triamcinol 3-08 S pirit one) one) 00:00: - [facility] 00 [facility] Bupivicaine Bupivicaine 1-0 No 2.5mg Common Evangeline Evangeline 3-08 Spirit 00:00: - [facility] 00 [facility] Kenalog Kenalog 2020-0 No 40mg Common (Triamcinol (Triamcinol 3-08 S pirit one) one) 00:00: - [facility] 00 [facility] Bupivicaine Bupivicaine 1-0 No Common Evangeline Evangeline 3-08 Spirit 00:00: - [facility] 00 [facility] Kenalog Kenalog 2020-0 No 40mg Common (Triamcinol (Triamcinol 3-08 S pirit one) one) 00:00: - [facility] 00 [facility] Bupivicaine Bupivicaine 2020-0 No 2.5mg Common Evangeline Evangeline 3-08 Spirit 00:00: - [facility] 00 [facility] ibuprofen 2020-0 Yes [id number] 600mg Take 1 U nivers 600 mg 1-28 tablet by ity of tablet 00:00: mouth [place] 00 every 6 Medical (six) Branch hours as needed for Pain (scale 4-6). ibuprofen 2020-0 Yes [id number] 600mg Take 1 U nivers 600 mg 1-28 tablet by ity of tablet 00:00: mouth [place] 00 every 6 Medical (six) Branch hours as needed for Pain (scale 4-6). ibuprofen 2020-0 Yes [id number] 600mg Take 1 U nivers 600 mg 1-28 tablet by ity of tablet 00:00: mouth [place] 00 every 6 Medical (six) Branch hours as needed for Pain (scale 4-6). ibuprofen 2021-0 Yes [id number] 600mg Take 1 U nivers 600 mg 1-28 tablet by ity of tablet 00:00: mouth [place] 00 every 6 Medical (six) Branch hours as needed for Pain (scale 4-6). ibuprofen 2020-0 Yes [id number] 600mg Take 1 U nivers 600 mg 1-28 tablet by ity of tablet 00:00: mouth [place] 00 every 6 Medical (six) Branch hours as needed for Pain (scale 4-6). ibuprofen 1-0 Yes [id number] 600mg Take 1 U nivers 600 mg 1-28 tablet by ity of tablet 00:00: mouth [place] 00 every 6 Medical (six) Branch hours as needed for Pain (scale 4-6). ibuprofen 2020-0 Yes [id number] 600mg Take 1 U nivers 600 mg 1-28 tablet by ity of tablet 00:00: mouth [place] 00 every 6 Medical (six) Branch hours as needed for Pain (scale 4-6). ibuprofen 2020-0 Yes [id number] 600mg Take 1 U nivers 600 mg 1-28 tablet by ity of tablet 00:00: mouth [place] 00 every 6 Medical (six) Branch hours as needed for Pain (scale 4-6). ibuprofen 2020-0 Yes [id number] 600mg Take 1 U nivers 600 mg 1-28 tablet by ity of tablet 00:00: mouth [place] 00 every 6 Medical (six) Branch hours as needed for Pain (scale 4-6). ibuprofen 2020-0 Yes [id number] 600mg Take 1 U nivers 600 mg 1-28 tablet by ity of tablet 00:00: mouth [place] 00 every 6 Medical (six) Branch hours as needed for Pain (scale 4-6). ibuprofen 2020-0 Yes [id number] 600mg Take 1 U nivers 600 mg 1-28 tablet by ity of tablet 00:00: mouth [place] 00 every 6 Medical (six) Branch hours as needed for Pain (scale 4-6). ibuprofen 2020-0 Yes [id number] 600mg Take 1 U nivers 600 mg 1-28 tablet by ity of tablet 00:00: mouth [place] 00 every 6 Medical (six) Branch hours as needed for Pain (scale 4-6). ibuprofen 2021-0 Yes [id number] 600mg Take 1 U nivers 600 mg 1-28 tablet by ity of tablet 00:00: mouth [place] 00 every 6 Medical (six) Branch hours as needed for Pain (scale 4-6). ibuprofen 2021-0 Yes [id number] 600mg Take 1 U nivers 600 mg 1-28 tablet by ity of tablet 00:00: mouth [place] 00 every 6 Medical (six) Branch hours as needed for Pain (scale 4-6). ibuprofen 2020-0 Yes [id number] 600mg Take 1 U nivers 600 mg 1-28 tablet by ity of tablet 00:00: mouth [place] 00 every 6 Medical (six) Branch hours as needed for Pain (scale 4-6). Bupivicaine Bupivicaine 2019- No 2.5mg Common Evangeline Evangeline 2-30 Spirit 00:00: - [facility] Kenalog Kenalog 2019- No 40mg Common (Triamcinol (Triamcinol 2-30 S pirit one) one) 00:00: - [facility] Bupivicaine Bupivicaine 2019- No 2.5mg Common Evangeline Evangeline 2-30 Spirit 00:00: - [facility] Kenalog Kenalog 2019- No 40mg Common (Triamcinol (Triamcinol 2-30 S pirit one) one) 00:00: - [facility] Bupivicaine Bupivicaine 2019- No 2.5mg Common Evangeline Evangeline 2-30 Spirit 00:00: - [facility] Kenalog Kenalog 2019- No 40mg Common (Triamcinol (Triamcinol 2-30 S pirit one) one) 00:00: - [facility] Bupivicaine Bupivicaine 2019- No 2.5mg Common Evangeline Evangeline 2-30 Spirit 00:00: - [facility] Kenalog Kenalog 2019- No 40mg Common (Triamcinol (Triamcinol 2-30 S pirit one) one) 00:00: - [facility] Bupivicaine Bupivicaine 2019- No Common Evangeline Evangeline 2-30 Spirit 00:00: - [facility] Kenalog Kenalog 2019- No 40mg Common (Triamcinol (Triamcinol 2-30 S pirit one) one) 00:00: - [facility] Bupivicaine Bupivicaine 2019- No 2.5mg Common Evangeline Evangeline 2-30 Spirit 00:00: - [facility] Kenalog Kenalog 2020-1 No 40mg Common (Triamcinol (Triamcinol 2-30 S pirit one) one) 00:00: - [facility] 00 [facility] Nitrofurant 2020-0 Yes [id number] 100mg Take 1 Univers oin&Nit. 9-15 capsule by ity o f Macrocryst 00:00: mouth as [place] as (MACROBID) 00 needed for Med ical 100 mg Other Branch capsule (after intecourse ). Nitrofurant 2020-0 Yes [id number] 100mg Take 1 Univers oin&Nit. 9-15 capsule by ity o f Macrocryst 00:00: mouth as [place] (MACROBID) 00 needed for Med ical 100 mg Other Branch capsule (after intecourse ). Nitrofurant 2019-0 Yes [id number] 100mg Take 1 Univers oin&Nit. 9-15 capsule by ity o f Macrocryst 00:00: mouth as [place] (MACROBID) 00 needed for Med ical 100 mg Other Branch capsule (after intecourse ). Nitrofurant 2019-0 Yes [id number] 100mg Take 1 Univers oin&Nit. 9-15 capsule by ity o f Macrocryst 00:00: mouth as [place] (MACROBID) 00 needed for Med ical 100 mg Other Branch capsule (after intecourse ). Nitrofurant 2019-0 Yes [id number] 100mg Take 1 Univers oin&Nit. 9-15 capsule by ity o f Macrocryst 00:00: mouth as [place] (MACROBID) 00 needed for Med ical 100 mg Other Branch capsule (after intecourse ). Nitrofurant 2020-0 Yes [id number] 100mg Take 1 Univers oin&Nit. 9-15 capsule by ity o f Macrocryst 00:00: mouth as [place] (MACROBID) 00 needed for Med ical 100 mg Other Branch capsule (after intecourse ). Nitrofurant 2020-0 Yes [id number] 100mg Take 1 Univers oin&Nit. 9-15 capsule by ity o f Macrocryst 00:00: mouth as [place] (MACROBID) 00 needed for Med ical 100 mg Other Branch capsule (after intecourse ). Nitrofurant 2020-0 Yes [id number] 100mg Take 1 Univers oin&Nit. 9-15 capsule by ity o f Macrocryst 00:00: mouth [place] (MACROBID) 00 needed for Med ical 100 mg Other Branch capsule (after intecourse ). Nitrofurant 2020-0 Yes [id number] 100mg Take 1 Univers oin&Nit. 9-15 capsule by ity o f Macrocryst 00:00: mouth as [place] (MACROBID) 00 needed for Med ical 100 mg Other Branch capsule (after intecourse ). Nitrofurant 2020-0 Yes [id number] 100mg Take 1 Univers oin&Nit. 9-15 capsule by ity o f Macrocryst 00:00: mouth as [place] (MACROBID) 00 needed for Med ical 100 mg Other Branch capsule (after intecourse ). Nitrofurant 2020-0 Yes [id number] 100mg Take 1 Univers oin&Nit. 9-15 capsule by ity o f Macrocryst 00:00: mouth as [place] (MACROBID) 00 needed for Med ical 100 mg Other Branch capsule (after intecourse ). Nitrofurant 2020-0 Yes [id number] 100mg Take 1 Univers oin&Nit. 9-15 capsule by ity o f Macrocryst 00:00: mouth as [place] (MACROBID) 00 needed for Med ical 100 mg Other Branch capsule (after intecourse ). Nitrofurant 2020-0 Yes [id number] 100mg Take 1 Univers oin&Nit. 9-15 capsule by ity o f Macrocryst 00:00: mouth as [place] (MACROBID) 00 needed for Med ical 100 mg Other Branch capsule (after intecourse ). Nitrofurant 2020-0 Yes [id number] 100mg Take 1 Univers oin&Nit. 9-15 capsule by ity o f Macrocryst 00:00: mouth as [place] (MACROBID) 00 needed for Med ical 100 mg Other Branch capsule (after intecourse ). Nitrofurant 2020-0 Yes [id number] 100mg Take 1 Univers oin&Nit. 9-15 capsule by ity o f Macrocryst 00:00: mouth as [place] (MACROBID) 00 needed for Med ical 100 mg Other Branch capsule (after intecourse ). Bupivicaine Bupivicaine 2020-0 No 5mL Common Evangeline Evangeline 8-03 Spirit 00:00: - [facility] 00 [facility] Kenalog Kenalog 2020-0 No 40mg Common (Triamcinol (Triamcinol 8-03 S pirit one) one) 00:00: - [facility] 00 [facility] Bupivicaine Bupivicaine 2020-0 No 5mL Common Evangeline Evangeline 8-03 Spirit 00:00: - [facility] 00 [facility] Kenalog Kenalog 2020-0 No 40mg Common (Triamcinol (Triamcinol 8-03 S pirit one) one) 00:00: - [facility] 00 [facility] Bupivicaine Bupivicaine 2020-0 No 5mL Common Evangeline Evangeline 8-03 Spirit 00:00: - [facility] 00 [facility] Kenalog Kenalog 2020-0 No 40mg Common (Triamcinol (Triamcinol 8-03 S pirit one) one) 00:00: - [facility] 00 [facility] Bupivicaine Bupivicaine 2020-0 No 5mL Common Evangeline Evangeline 8-03 Spirit 00:00: - [facility] 00 [facility] Kenalog Kenalog 2020-0 No 40mg Common (Triamcinol (Triamcinol 8-03 S pirit one) one) 00:00: - [facility] 00 [facility] Bupivicaine Bupivicaine 2020-0 No 5mL Common Evangeline Evangeline 8-03 Spirit 00:00: - [facility] 00 [facility] Kenalog Kenalog 2020-0 No 40mg Common (Triamcinol (Triamcinol 8-03 S pirit one) one) 00:00: - [facility] 00 [facility] Bupivicaine Bupivicaine 2020-0 No 5mL Common Evangeline Evangeline 8-03 Spirit 00:00: - [facility] 00 [facility] Kenalog Kenalog 2020-0 No 40mg Common (Triamcinol (Triamcinol 8-03 S pirit one) one) 00:00: - [facility] 00 [facility] Meloxicam Meloxicam 2020-0 2020- No [place] 1 tablet Common 10-12 [place] [facility] 00:00: 00:00 - [facility] 00 :00 [facility] Estrace Estrace 2018-0 Yes [place] as Comm on 04-24 [place] directed Spirit 00:00: - [facility] 00 [facility] Estrace 0.1 Estrace 0.1 2018-0 No [...] hours prn Medicin pain pain pain e [place] No [place] 10 A zalea mg-325 mg mg-325 mg 6-25 mg-325 mg Orthope tablet 1-2 tablet 1-2 00:00: tablet 1-2 dic every 4-6 every 4-6 00 every 4-6 Sports hours prn hours prn hours prn Medicin pain pain pain e Ciprofloxac Ciprofloxac Yes Justice not Common in HCl in HCl [place] defined [facility] Nitrofurant Nitrofurant Yes Justice 1 capsule Common oin oin [place] with food Spirit Macrocrysta Macrocrysta or milk - CHI l l [facility] Nitrofurant Nitrofurant Yes Justice not Common oin Monohyd oin Monohyd [place] defined Spirit Macro Macro [facility] Fluticasone Fluticasone Yes Justice not Common Propionate Propionate [place] defined Spirit [facility] Topiramate Topiramate Yes Justice not Common [place] defined Spirit [facility] Levofloxaci Levofloxaci Yes Justice not Common n n [place] defined Spirit [facility] Cyclobenzap Cyclobenzap Yes Justice not Common rine HCl rine HCl [place] defined Spir it [facility] Robaxin-750 Robaxin-750 Yes Justice 1 tablet Common [place] [facility] Tamsulosin Tamsulosin Yes Justice not Common HCl HCl [place] defined [facility] Cephalexin Cephalexin Yes [place] not Common [place] defined Spirit [facility] Tizanidine Tizanidine Yes Justice not Common HCl HCl [place] defined Spirit - [facility] Alprazolam Alprazolam Yes [place] not Common [place] defined [facility] Tramadol Tramadol Yes Justice not Comm on HCl HCl [place] defined [facility] Clonazepam Clonazepam Yes Justice not Common [place] defined [facility] Fentanyl Fentanyl Yes Justice 1 patch to Common [place] skin [facility] Topiramate Topiramate No Topiramate Estradiol Estradiol [...] rts MOUTH AT MOUTH AT TABLET BY Ri dicin BEDTIME BEDTIME MOUTH AT e BEDTIME [...] hr hr hr nitroglycer nitroglycer No nitroglyce Ilvia in 0.4 mg in 0.4 mg rin [...] tablet Medicin e hydromorpho hydromorpho No hydromorph Liiva ne 4 mg ne 4 mg one [...] Immunizations Ordered Filled Immunization Date Status Comments [facility] e Immunization Name Name SARS-COV-2 COVID-19 2020-07-07 Completed Unive rsity of MODERNA VACCINE 00:00:00 [facility] ical Branch SARS-COV-2 COVID-19 2020-07-07 Completed Unive rsity of MODERNA VACCINE 00:00:00 [facility] ical Branch SARS-COV-2 COVID-19 2020-07-07 Completed Unive rsity of MODERNA VACCINE 00:00:00 [facility] ical Branch SARS-COV-2 COVID-19 2020-07-07 Completed Unive rsity of MODERNA 12+ YRS 00:00:00 [facility] ical VACCINE Branch SARS-COV-2 COVID-19 2020-07-07 Completed Unive rsity of MODERNA 12+ YRS 00:00:00 [facility] ical VACCINE Branch SARS-COV-2 COVID-19 2020-07-07 Completed Unive rsity of MODERNA 12+ YRS 00:00:00 [facility] ical VACCINE Branch SARS-COV-2 COVID-19 2020-07-07 Completed Unive rsity of MODERNA 12+ YRS 00:00:00 [facility] ical VACCINE Branch SARS-COV-2 COVID-19 2020-07-07 Completed Unive rsity of MODERNA 12+ YRS 00:00:00 [facility] ical VACCINE Branch SARS-COV-2 COVID-19 2020-07-07 Completed Unive rsity of MODERNA 12+ YRS 00:00:00 [facility] ical VACCINE Branch SARS-COV-2 COVID-19 2020-07-07 Completed [...] 17:53:00 107 mm[Hg] Univer sity of pressure [facility] Diastolic blood 2021-12-29 17:53:00 67 mm[Hg] Unive rsity of pressure [facility] Heart rate 2021-12-29 17:53:00 74 /min Universi ty [facility] Body temperature 2021-12-29 17:53:00 36.44 Sonam [facility] Res[facility] rate 2021-12-29 17:53:00 18 /min [facility] Body height 2021-12-29 17:53:00 172.7 cm per pt Universi ty [facility] Body weight 2021-12-29 17:53:00 81.965 kg Universi ty [facility] BMI 2021-12-29 17:53:00 27[facility]48 [facility] O[facility] in 2021-12-29 17:53:00 99 /min [facility] Arterial blood by [facility] Pulse oximetry Branch Height 2021-11-02 00:00:00 68 [in_i] [facility] BMI (Body Mass 2021-11-02 00:00:00 25.8 kg/m2 [facility] Index) Sports Medicine Body Weight 2021-11-02 00:00:00 170 [lb_av] [facility] Systolic blood 2021-10-20 15:53:00 160 mm[Hg] Univer [facility] Diastolic blood 2021-10-20 15:53:00 78 mm[Hg] Unive rsity of pressure [facility] Heart rate 2021-10-20 15:50:00 82 /min Universi ty of [facility] Body temperature 2021-10-20 15:50:00 36.89 Sonam [facility] Respiratory rate 2021-10-20 15:50:00 17 /min [facility] Body height 2021-10-20 15:50:00 172.7 cm [facility] Body weight 2021-10-20 15:50:00 77.565 kg [facility] BMI 2021-10-20 15:50:00 26.00 kg/m2 [facility] Oxygen saturation in 2021-10-20 15:50:00 98 /min [facility] Arterial blood by [facility] Pulse oximetry Branch height 2021-09-06 08:30:00 68 [in_i] [facility] weight 2021-09-06 08:30:00 173.3 [lb_av] [facility] bmi 2021-09-06 08:30:00 26.35 kg/m2 [facility] blood pressure 2021-09-06 08:30:00 144 mm[Hg] [facility] - systolic [facility] blood pressure 2021-09-06 08:30:00 84 mm[Hg] [facility] - diastolic [facility] height 2021-07-07 13:30:00 68 [in_i] [facility] weight 2021-07-07 13:30:00 176 [lb_av] [facility] temperature 2021-07-07 13:30:00 97.2 [degF] [facility] bmi 2021-07-07 13:30:00 26.76 kg/m2 [facility] blood pressure 2021-07-07 13:30:00 148 mm[Hg] [facility] - systolic [facility] blood pressure 2021-07-07 13:30:00 73 mm[Hg] [facility] - diastolic [facility] height 2021-06-07 13:00:00 68 [in_i] [facility] weight 2021-06-07 13:00:00 176 [lb_av] Common S pirit - [facility] temperature 2021-06-07 13:00:00 96.8 [degF] Common [facility] bmi 2021-06-07 13:00:00 26.76 kg/m2 Common S pirit - [facility] blood pressure 2021-06-07 13:00:00 124 mm[Hg] [facility] - systolic [facility] blood pressure 2021-06-07 13:00:00 76 mm[Hg] [facility] - diastolic [facility] Systolic blood 2021-05-09 16:22:00 153 mm[Hg] Univer [facility] Diastolic blood 2021-05-09 16:22:00 73 mm[Hg] Unive rsity [facility] Heart rate 2021-05-09 16:22:00 69 /min [facility] Respiratory rate 2021-05-09 16:21:00 19 /min [facility] Body height 2021-05-09 16:21:00 172.7 cm [facility] Body weight 2021-05-09 16:21:00 81.285 kg [facility] BMI 2021-05-09 16:21:00 27.25 kg/m2 [facility] Oxygen saturation in 2021-05-09 16:21:00 100 /min [facility] Arterial blood by [facility] Pulse oximetry Branch Procedures Procedure Date [...] 2 or 3 view Sports M edicine [id number] 2022-01-20 00:00:00 MATVA.01 [facility] [id number] 2022-01-20 00:00:00 MATVA.01 [facility] [id number] 2022-01-19 00:00:00 BRIMA.01 [facility] [id number] 2022-01-19 00:00:00 MATVA.01 [facility] [id number] 2022-01-19 00:00:00 MATVA.01 [facility] [id number] 2022-01-19 00:00:00 MATVA.01 [facility] Revise Hip Joint 2022-01-19 00:00:00 Livia Muir opedic Replacement Sports Medicine ASSIGNMENT OF BENEFITS 2021-12-29 17:31:06 Doctor Unassigned, No [facility] MEDICAL 2021-12-14 05:01:00 Doctor Unassigned, No [facility] RELEASE/CLEARANCE FORMS [facility] NOTICE OF BILLING 2021-12-08 14:33:50 Doctor Unassigned, No [facility] PRACTICES FOR MEDICARE Name Medical B ranch PATIENTS MEDICAL 2021-11-25 05:01:00 Doctor Unassigned, No [facility] RELEASE/CLEARANCE FORMS [facility] XR, hip + pelvis, 2021-11-02 00:00:00 Livia Landry hopedic unilateral, 2 or 3 view Sports M edicine POCT URINALYSIS 2021-10-20 15:58:00 Kelly Avalos Garrison o f [facility] HB ECG ROUTINE & RHYTHM 2021-05-09 16:14:24 Maricarmen Nguyen [facility] Plan of Care Planned Activity Planned Date Details Comments Source Future Appointment 2022-09-20 Juan Francisco Wilder ea Orthopedic 10:00:[address]; , [place] [address] Instructions [facility] Medicine Encounters Start End Encounter Admission Attending Care Care Encounter Source Date/Time Date/Time Type Type Clinicians Facility Department ID 2021-10-10 Outpatient Cole, STLMLC [facility] [id number] Common 12:15:00 Patric [facility] 2021-09-06 Outpatient Cole, STLMLC [facility] [id number] Common 08:26:01 Patric [facility] 2021-06-07 Outpatient Cole, STLMLC [facility] [id number] Common 14:54:02 Patric [facility] 2021-05-23 Outpatient Cole, STLMLC [facility] [id number] Common 15:27:02 Patric [facility] 2021-04-06 Outpatient Cole, STLMLC [facility] [id number] Common 12:20:03 Patric [id number] [facility] 2021-04-06 [facility] [id number] Common 11:34:20 Patric [id number] [facility] 2021-03-07 Inpatient OLGA LIDIA Linares, [facility] [id number] [facility] 10:45:[address] [place] [address] 2021-01-12 Outpatient [facility] [id number] [place] 13:28:28 [facility] 2021-01-10 Outpatient RADWAN, [facility] [id number] [place] 11:46:45 [facility] 2021-01-08 Emergency [facility] [id number] Univers 23:01:54 [facility] 2021-01-08 Emergency [facility] [id number] Univers 20:27:01 [facility] 2022-08-15 2022-08-15 Outpatient FOG_Mathews AOSM AOSM [id number] Livia 00:00:00 00:00:00 _Domitila [id number] Orth ope dic Sports Medicin e 2022-08-08 2022-08-08 Outpatient FOG_Mathews AOSM AOSM [id number] Livia 00:00:00 00:00:00 _Domitila [id number] Orth ope dic Sports Medicin e 2022-08-08 2022-08-08 Outpatient FOG_Mathews AOSM AOSM [id number] Livia 00:00:00 00:00:00 _Domitila [id number] Orth ope dic Sports Medicin e 2022-08-08 2022-08-08 Outpatient FOG_Mathews AOSM AOSM [id number] Livia 00:00:00 00:00:00 _Domitila [id number] Orth ope dic Sports Medicin e 2022-07-29 2022-07-29 Outpatient FOG_Mathews AOSM AOSM [id number] Livia 00:00:00 00:00:00 _Domitila [id number] Orth ope dic Sports Medicin e 2022-07-19 2022-07-19 Outpatient FOG_Mathews AOSM AOSM [id number] Livia 00:00:00 00:00:00 _Domitila [id number] Orth ope dic Sports Medicin e 2022-07-19 2022-07-19 Outpatient FOG_Mathews AOSM AOSM [id number] Livia 00:00:00 00:00:00 _Domitila [id number] Orth ope dic Sports Medicin e 2022-07-11 2022-07-11 Outpatient FOG_Mathews AOSM AOSM [id number] Livia 00:00:00 00:00:00 _Domitila [id number] Orth ope dic Sports Medicin e 2022-06-16 2022-06-16 Outpatient FOG_Mathews AOSM AOSM [id number] Livia 00:00:00 00:00:00 _Domitila [id number] Orth ope dic Sports Medicin e 2022-06-14 2022-06-14 Fabricio AOSM [place] - Ortho 05 Livia 00:00:00 00:00:00 Swathi Cartagena MD: [id number] FOG_Ofc dic [facility] [place], [place] [address] , Ph. [phone] 2022-06-10 2022-06-10 Outpatient FOG_Mathews AOSM AOSM [id number] Livia 00:00:00 00:00:00 _Domitila [id number] Orth ope dic Sports Medicin e 2022-06-10 2022-06-10 Outpatient FOG_Mathews AOSM AOSM [id number] Livia 00:00:00 00:00:00 _Domitila [id number] Orth ope dic Sports Medicin e 2022-06-10 2022-06-10 Outpatient FOG_Mathews AOSM AOSM [id number] Livia 00:00:00 00:00:00 _Domitila [id number] Orth ope dic Sports Medicin e 2022-05-30 2022-05-30 Outpatient FOG_Mathews AOSM AOSM [id number] Livia 00:00:00 00:00:00 _Domitila [id number] Orth ope dic Sports Medicin e 2022-05-12 2022-05-12 Outpatient FOG_Mathews AOSM AOSM [id number] Livia 00:00:00 00:00:00 _Domitila [id number] Orth ope dic Sports Medicin e 2022-05-08 2022-05-08 Outpatient FOG_Mathews AOSM AOSM [id number] Livia 00:00:00 00:00:00 _Domitila [id number] Orth ope dic Sports Medicin e 2022-05-08 2022-05-08 Outpatient FOG_Mathews AOSM AOSM [id number] Livia 00:00:00 00:00:00 _Domitila [id number] Orth ope dic Sports Medicin e 2022-05-03 2022-05-03 Outpatient FOG_Mathews AOSM AOSM 557 [id number] Livia 00:00:00 00:00:00 _Domitila [id number] [facility] 2022-05-02 2022-05-02 Outpatient FOG_Mathews AOSM AOSM 557 1276-20 Livia 00:00:00 00:00:00 _Domitila [id number] [facility] 2022-04-28 2022-04-28 Vineet AOSM [place] - [place] [id number] Livia 00:00:00 00:00:00 Swathi Weeks MD: 7401 FOG_Ofc dic [facility] Spo [facility], [place] [address] , Ph. [phone] 2022-04-19 2022-04-19 Outpatient FOG_Mathews AOSM AOSM 557 1276-20 Livia 00:00:00 00:00:00 _Domitila [id number] [facility] 2022-04-19 2022-04-19 Outpatient FOG_Mathews AOSM AOSM 557 1276-20 Livia 00:00:00 00:00:00 _Domitila [id number] [facility] 2022-04-19 2022-04-19 Outpatient FOG_Mathews AOSM AOSM 557 1276-20 Livia 00:00:00 00:00:00 _Domitila [id number] [facility] Medicin e 2022-04-19 2022-04-19 Outpatient FOG_Mathews AOSM AOSM 557 1276-20 Livia 00:00:00 00:00:00 _Domitila [id number] [facility] 2022-04-11 2022-04-11 Outpatient R PATRICK, [facility] [id number] Univers 10:00:00 10:00:00 MARICARMEN mendiola o f [facility] 2022-03-15 2022-03-15 Outpatient FOG_Mathews AOSM AOSM 557 1276-20 Livia 00:00:00 00:00:00 _Domitila [id number] [facility] 2022-03-15 2022-03-15 Fabricio [place]OSM [place] - [place] [id number] 04 Livia 00:00:00 00:00:00 Swathi Cartagena MD: 7401 FOG_Ofc dic [facility] Spo [facility] [place], [place] [address] , Ph. [phone] 2022-03-06 2022-03-06 Outpatient FOG_Mathews AOSM AOSM 557 1276-20 Livia 00:00:00 00:00:00 _Domitila [id number] [facility] Medicin e 2022-03-06 2022-03-06 Outpatient FOG_Mathews AOSM AOSM 557 1276-20 Livia 00:00:00 00:00:00 _Domitila [id number] Orth [facility] Medicin e 2022-03-06 2022-03-06 Outpatient FOG_Mathews AOSM AOSM 557 1276-20 Livia 00:00:00 00:00:00 _Domitila [id number] [facility] 2022-02-17 2022-02-17 Outpatient FOG_Mathews AOSM AOSM 557 1276-20 Livia 00:00:00 00:00:00 _Domitila [id number] [facility] Medicin e 2022-02-15 2022-02-15 Outpatient FOG_Mathews AOSM AOSM 557 1276-20 Livia 00:00:00 00:00:00 _Domitila [id number] [facility] Medicin e 2022-02-15 2022-02-15 Fabricio [place]OSM [place] - [place] [id number] Livia 00:00:00 00:00:00 Swathi Cartagena MD: 7401 FOG_[address] [facility], [place] [address] , Ph. [phone] 2022-02-07 2022-02-07 Outpatient FOG_Mathews AOSM AOSM 557 1276-20 Livia 00:00:00 00:00:00 _Domitila [id number] Orth [facility] Sports Medicin e 2022-02-06 2022-02-06 Outpatient FOG_Mathews AOSM AOSM 557 1276-20 Livia 00:00:00 00:00:00 _Domitila [id number] Orth [facility] Medicin e 2022-01-31 2022-01-31 Outpatient FOG_Mathews AOSM AOSM 557 1276-20 Livia 00:00:00 00:00:00 _Domitila [id number] [facility] Medicin e 2022-01-26 2022-01-26 Outpatient FOG_Mathews AOSM AOSM 557 1276-20 Livia 00:00:00 00:00:00 _Domitila [id number] [facility] Medicin e 2022-01-19 2022-01-24 Inpatient EL Osiel, HCATO SURG [id number] 286 [facility] 08:01:00 18:53:00 Fabricio [facility] [place] [facility] 2022-01-24 2022-01-24 Outpatient FOG_Mathews AOSM AOSM 557 1276-20 Livia 00:00:00 00:00:00 _Domitila [id number] [facility] Medicin e 2022-01-23 2022-01-23 Outpatient FOG_Mathews AOSM AOSM 557 1276-20 Livia 00:00:00 00:00:00 _Domitila [id number] Orth [facility] Sports Medicin e 2022-01-19 2022-01-19 Fabricio [place]OSM [place] - [place] [id number] Livia 00:00:00 00:00:00 Swathi Cartagena MD: 7401 FOG_Surgery dic [facility], [place] [address] , Ph. [phone] 2021-12-29 2021-12-29 Outpatient R PATRICK [facility] [id number] [facility] 13:00:00 16:09:11 MARICARMEN stewart f [facility] 2021-12-29 2021-12-29 Office Patrick, [facility] 1.2.840.114 [id number] Univers 13:00:00 13:20:00 Visit Maricarmen MATHEWS 350.1.13.10 ity of [place] [phone] Ri dical NAL 059 [facility] 2021-12-29 2021-12-29 Orders Doctor RAMIREZ 1.2.840.114 [id number] Univers 00:00:00 00:00:00 Only Unassigned, THEA 350.1.13.10 ity of [place] [facility] 4.2.7.2.686 Jose as [phone] [address] 2021-12-22 2021-12-22 Outpatient FOG_Mathews AOSM AOSM 557 1276-20 Livia 00:00:00 00:00:00 _Domitila 732358 [facility] Medicin e 2021-12-16 2021-12-16 Outpatient FOG_Mathews AOSM AOSM 557 1276-20 Livia 00:00:00 00:00:00 _Domitila 834153 Orth [facility] dic Sports Medicin e 2021-12-15 2021-12-15 [facility] 1.2.502.310 [id number] Univers 00:00:00 00:00:00 Qiajevon [place] 350.1.13.10 ity of [facility] 4.2.[place] [phone] Ri dical NAL [address] [place] [address] 2021-12-14 2021-12-14 [facility] 1.2.749.232 [id number] Univers 00:00:00 00:00:00 Qiajevon [place] 350.1.13.10 ity of [facility] 4.2.7.2.[place] [phone] Ri dical NAL [address] [place] [address] 2021-12-14 2021-12-14 Orders Doctor RAMIREZ 1.2.840.114 [id number] Univers 00:00:00 00:00:00 Only Unassigned, THEA 350.1.13.10 ity of [facility] [facility] 4.2.7.2.686 Jose as [phone] [address] 2021-12-13 2021-12-13 [facility] 1.2.923.068 [id number] Univers 00:00:00 00:00:00 Maricarmen [place] 350.1.13.10 ity of [facility] 4.2.7.2.[place] [phone] Ri dical NAL [address] [place] [address] 2021-12-08 2021-12-08 Outpatient R [facility] [id number] Univers 09:33:57 23:59:00 MARICARMEN mendiola o f [facility] 2021-12-08 2021-12-08 Orders Doctor RAMIREZ 1.2.840.114 [id number] Univers 00:00:00 00:00:00 Only Unassigned, THEA 350.1.13.10 ity of [place] [facility] 4.2.7.2.686 Jose as [phone] [address] 2021-12-02 2021-12-02 Outpatient FITO Cartagena LABO [id number] [facility] 16:09:00 16:09:00 Fabricio 81 [facility] 2021-12-02 2021-12-02 Outpatient FITO Cardoza LABO [id number] [facility] 16:09:00 16:09:00 Fabricio 81 [facility] 2021-12-02 2021-12-02 Outpatient SAMUEL Cardoza RADI [id number] [facility] 10:27:00 10:27:00 Fabricio [facility] 2021-12-02 2021-12-02 Outpatient SAMUEL Cardoza RADI [id number] [facility] 10:27:00 10:27:00 Fabricio 21 [place] [facility] 2021-11-25 2021-11-25 Telephone Patrick [facility] 1.2.759.478 [id number] Univers 00:00:00 00:00:00 Maricarmen MATHEWS 350.1.13.10 ity of [place] [phone] Ri dical NAL 9 [facility] 2021-11-25 2021-11-25 Orders Doctor RAMIREZ 1.2.840.114 [id number] Univers 00:00:00 00:00:00 Only Unassigned, THEA 350.1.13.10 ity of [facility] 4.2.7.2.686 Jose as [phone] [address] 2021-11-24 2021-11-24 Outpatient [place]_Osiel AOSM AOSM 557 1276-20 Livia 00:00:00 00:00:00 _Libby_ [id number] [facility] 2021-11-21 2021-11-21 Outpatient FITO Cardoza LABO [id number] [facility] 16:22:00 16:22:00 Fabricio 87 [facility] 2021-11-21 2021-11-21 Outpatient SAMUEL Cardoza 3DAY [id number] [facility] 09:00:00 09:01:00 Fabricio [facility] [place] [facility] 2021-11-11 2021-11-11 Outpatient FOG_Mathews AOSM AOSM 557 1276-20 Livia 00:00:00 00:00:00 _Domitila [id number] [facility]in e 2021-11-02 2021-11-02 Outpatient FOG_Mathews AOSM AOSM 557 1276-20 Livia 00:00:00 00:00:00 _Domitila 616083 Orth [facility] Medicin e 2021-11-02 2021-11-02 Fabricio AOSM [place] - Ortho L[place] 00:00:00 00:00:00 Swathi Cartagena MD: 7401 FOG_Ofc dic [facility] Spo [facility], [place] [address] , Ph. [phone] 2021-11-02 2021-11-02 Outpatient LENNY Cartagena AOSM [id number] 00:00:00 00:00:00 Fabricio [id number] 2021-10-20 2021-10-20 [facility] [id number] Univers 11:00:00 11:20:08 [facility] 2021-10-20 2021-10-20 Urgent [facility] 1.2.840.114 [id number] Univers 11:00:00 11:20:00 [facility] 350.1.13.10 it y [facility] 4.2.7.2.686 Jose as LEXIE?BLEA [phone] Ri dical [address] MEDICAL OFFICE BUILDING 2021-09-28 2021-09-28 Outpatient FOG_Mathews AOSM AOSM 557 1276-20 Livia 00:00:00 00:00:00 _Domitila 587702 [facility] Medicin e 2021-09-21 2021-09-21 [facility] 1.2.534.640 [id number] Univers 00:00:00 00:00:00 Maricarmen [place] 350.1.13.10 [facility] 4.2.7.2.686 Lisseth [place] [phone] [facility] 059 [facility] 2021-09-06 2021-09-06 OFFICE STLMLC STLMLC [id number] Co mmon 00:00:00 00:00:00 VISIT [facility] LEVEL 4 [facility] 2021-07-13 2021-07-13 (TEL) STLMLC STLMLC [id number] Co mmon 00:00:00 00:00:00 [facility] 2021-07-07 2021-07-07 Postop STLMLC STLMLC [id number] Co mmon 00:00:00 00:00:00 visit [facility] 2021-07-04 2021-07-04 (TEL) STLMLC STLMLC [id number] Co mmon 00:00:00 00:00:00 [facility] 2021-06-23 2021-06-23 (TEL) STLMLC STLMLC [id number] Co mmon 00:00:00 00:00:00 [facility] 2021-06-08 2021-06-08 Outpatient R PATRICK, [facility] [id number] Univers 09:00:00 09:00:00 [facility] 2021-06-07 2021-06-07 Outpatient R PATRICK, [facility] [id number] Univers 10:00:00 10:00:00 ABNERVALERIA reynaomaira [facility] 2021-06-07 2021-06-07 Outpatient R PATRICK, [facility] [id number] Univers 10:00:00 10:00:00 [facility] 2021-06-07 2021-06-07 NON-BILLAB STLMLC STLMLC [id number] Common 00:00:00 00:00:00 LE VISIT Zoltan [facility] 2021-06-06 2021-06-06 Outpatient R [facility] [id number] Univers 10:00:00 10:00:00 ity [facility] 2021-05-09 2021-05-09 Outpatient R PATRICK, [facility] [id number] Univers 09:40:00 10:48:25 MARICARMEN mendiola o f [facility] 2021-05-09 2021-05-09 Office [facility] 1.2.840.114 [id number] Univers 09:40:00 10:48:25 Visit Maricarmen MATHEWS 350.1.13.10 ity of [place] 4.2.[place].2.686 [place] [facility] [phone] Ri dical [facility] 059 [facility] 2021-05-09 2021-05-09 Outpatient R [facility] [id number] Univers 09:40:00 10:48:25 MARICARMEN mendiola o [facility] 2021-05-09 2021-05-09 Outpatient R [facility] [id number] Univers 09:40:00 10:48:25 MARICARMEN mendiola o [facility] 2021-05-09 2021-05-09 Orders Doctor GUZMÁN 1.2.840.114 [id number] Univers 00:00:00 00:00:00 Only Unassigned, THEA 350.1.13.10 ity [facility] 4.2.7.2.686 Jose as [phone] [facility] [address] 2021-04-11 2021-04-11 [facility] [id number] Univers 08:06:01 23:59:00 [facility] 2021-04-11 2021-04-11 Hospital [facility] 1.2.511.093 [id number] Univers 08:00:00 23:59:00 Encounter Shannan MATHEWS 350.1.13.10 ity of [place] [phone] [facility] [address] 2021-04-04 2021-04-04 [facility] [id number] Univers 00:00:00 00:00:00 SHANNAN mendiola [facility] 2021-03-29 2021-03-29 Outpatient R MARCK HANNA [facility] [id number] Univers 11:00:00 11:00:00 MARCK HANNA [facility] 2021-03-25 2021-03-25 Outpatient R [facility] [id number] Univers 11:00:00 11:50:59 SHANNAN mendiola [facility] 2021-03-25 2021-03-25 Office [facility] 1.2.840.114 [id number] Univers 11:00:00 11:50:59 Visit Shannan MATHEWS 350.1.13.10 i ty of [place] 4[place] [phone] Ri dical NAL 098 [facility] 2021-03-25 2021-03-25 Outpatient R [facility] [id number] Univers 11:00:00 11:50:59 SHANNAN [facility] 2021-03-25 2021-03-25 Orders Doctor RAMIREZ 1.2.840.114 [id number] Univers 00:00:00 00:00:00 Only Unassigned, THEA 350.1.13.10 ity of [facility] 4.2.7.2.686 Jose as [phone] [address] 2021-03-21 2021-03-21 Final Expense Agent Keaton, Pinky Lab Main [facility] 1.2.8 40.114 [id number] Univers 07:45:00 08:00:00 Visit Shannan Roy REID 350.1.13.10 ity of [place] [phone] Ri dical NAL 353 [facility] 2021-03-21 2021-03-21 Outpatient R [facility] [id number] Univers 07:45:00 07:45:00 SHANNAN mendiola [facility] 2021-02-18 2021-02-18 Outpatient R [facility] [id number] Univers 10:00:00 10:00:00 ity of [facility] 2021-02-17 2021-02-17 Telephone [facility] 1.2.840.114 [id number] Univers 00:00:00 00:00:00 Shannan MATHEWS 350.1.13.10 i ty of [place] [phone] Ri dical NAL 204 [facility] 2021-02-14 2021-02-14 Orders Doctor RAMIREZ 1.2.840.114 [id number] Univers 00:00:00 00:00:00 Only Unassigned, THEA 350.1.13.10 ity of [facility] 4.2.7.2.686 Jose as [phone] [address] 2021-02-08 2021-02-08 Telephone [facility] 1.2.840.114 [id number] Univers 00:00:00 00:00:00 Shannan REID 350.1.13.10 i ty of [place] [phone] Ri dical NAL 204 [facility] 2021-01-10 2021-01-10 Case [facility] 1.2.840.114 [id number] Univers 00:00:00 00:00:00 Management Shannan HEALTH 350.1.13.10 [place] of [place].2.[place] [phone] [facility] [address] [place] OFFICE [facility] 2021-01-07 2021-01-07 Outpatient R [facility] [id number] Univers 10:00:00 10:27:04 SHANNAN ity of [facility] 2021-01-07 2021-01-07 Office [facility] 1.2.840.114 [id number] Univers 09:56:23 10:27:04 Visit Shannan MATHEWS 350.1.13.10 i ty of [facility] 4.2.7.2.686 [place] [phone] Ri dical NAL 098 [facility] 2021-01-07 2021-01-07 Outpatient R [facility] [id number] Univers 10:00:00 10:00:00 SHANNAN ity of [facility] 2021-01-03 2021-01-03 Telephone [facility] 1.2.840.114 [id number] Univers 00:00:00 00:00:00 Shannan Health 350.1.13.10 it y of [place].2.[place] [phone] [facility][note 3] [address] Office Building 2021-01-03 2021-01-03 Telephone Kirill [facility] 1.2.840.114 [id number] Univers 00:00:00 00:00:00 Shannan Reid 350.1.13.10 i ty of [place].2.[place] [phone] Ri dical nal 134 [facility] 2020-12-30 2020-12-30 [facility] Radiology [facility] 1.2.840.114 [id number] Univers 08:40:00 23:59:00 Encounter [place] 350.1.13.10 ity of [place].7.2.686 [place] [phone] [facility] [address] [place] 2020-12-30 2020-12-30 Outpatient R ERICA CABA [facility] [id number] Univers 10:30:00 10:30:00 ERICA CABA i ty of [facility] 2020-12-30 2020-12-30 Final Expense Agent Keaton, Pinky Lab Main [facility] 1.2.8 40.114 [id number] Univers 08:59:10 09:14:10 Visit Shannan Roy [place] 350.1.13.10 ity of [place].2.7.2.686 [place] [phone] Ri dical nal 353 [facility] 2020-12-28 2020-12-28 [facility] Radiology [facility] 1.2.840.114 [id number] Univers 09:58:42 23:59:00 Encounter [place] 350.1.13.10 ity of [place] 4.2.7.2.686 [place] [phone] [facility] 8[address] [place] 2020-12-28 2020-12-28 Outpatient R RADIOLOGY [facility] [id number] Univers 00:00:00 00:00:00 ity of [facility] 2020-12-28 2020-12-28 Orders Doctor GUZMÁN 1.2.840.114 [id number] Univers 00:00:00 00:00:00 Only Unassigned, THEA 350.1.13.10 ity of [place] [facility] 4.2.7.2.686 Jose as [phone] [facility] [address] 2020-11-12 2020-11-12 Out[facility] [id number] Univers 09:30:00 09:30:00 SHANNAN mendiola [facility] 2020-11-12 2020-11-12 [facility]phone [facility] 1.2.410.481 [id number] Univers 00:00:00 00:00:00 Shiwan [place] 350.1.13.10 i ty of [place] [phone] Ri dical nal 5 [facility] 2020-11-08 2020-11-08 [facility] 1.2.840.114 [id number] Univers 07:50:52 23:59:00 Encounter Erica Mathews 350.1.13.10 ity of [place] 4.2.7.2.[place] [phone] [facility] [address] 2020-11-08 2020-11-08 Out[facility] [id number] Univers 09:00:00 09:00:00 SHANNAN omaira [facility] 2020-11-08 2020-11-08 Outpatient R ERICA CABA [facility] [id number] Univers 00:00:00 00:00:00 ERICA CABA i ty of [facility] 2020-11-05 2020-11-05 Outpatient [facility] [id number] Univers 13:00:00 13:00:00 [facility] 2020-10-29 2020-10-29 Office [facility] 1.2.840.114 [id number] Univers 13:48:11 14:15:23 Visit Erica Mathews 350.1.13.10 i ty of [place].2.[place] [phone] Ri dical nal [address] [place] [address] 2020-10-29 2020-10-29 Outpatient R ERICA CABA [facility] [id number] Univers 14:00:00 14:00:00 ERICA CABA i ty [facility] 2020-10-11 2020-10-11 Outpatient R KIRILL [facility] [id number] Univers 10:00:00 10:00:00 SHANNAN ity [facility] 2020-10-07 2020-10-07 Telephone [facility] 1.2.100.537 [id number] Univers 00:00:00 00:00:00 Sana Mathews 350.1.13.10 ity of [place].2.[place] [phone] Ri dical [facility] 204 [facility] 2020-10-05 2020-10-05 Outpatient [facility] [id number] Univers 11:30:00 11:30:00 SANA mendiola [facility] 2020-10-05 2020-10-05 Final Expense Agent Keaton, [facility] Lab Main [facility] 1.2.8 40.114 [id number] Univers 11:14:57 11:29:57 Visit Sana Gao 350.1.13.10 ity of [place] 4.[place].2.[place] [phone] [facility] 353 [facility] 2020-10-05 2020-10-05 Orders Doctor RAMIREZ 1.2.840.114 [id number] Univers 00:00:00 00:00:00 Only Unassigned, THEA 350.1.13.10 ity of [place] [facility] 4.2.7.2.686 Jose as [phone] [address] 2020-09-30 2020-09-30 Outpatient R ERICA CABA [facility] 10 [id number] Univers 09:00:00 09:00:00 ERICA CABA i ty [facility] 2020-09-17 2020-09-17 [facility]phone [facility] 1.2.286.179 [id number] Univers 00:00:00 00:00:00 Sana Mathews 350.1.13.10 ity of [place] [phone] Ri dical [facility] 204 [facility] 2020-09-16 2020-09-16 [facility]phone [facility] 1.2.571.170 [id number] Univers 00:00:00 00:00:00 Sana Mathews 350.1.13.10 ity of [place] [phone] Ri dical nal [address] [facility] 2020-08-16 2020-08-16 Telephone Eusebio [facility] 1.2.902.481 [id number] Univers 00:00:00 00:00:00 [facility] 350.1.13.10 it y of [place]2.7.2.686 [place] [phone] Med ical [facility] [address] 2020-08-12 2020-08-12 Hospital Radiology [facility] 1.2.840.114 [id number] Univers 10:23:08 23:59:00 Encounter Reid 350.1.13.10 ity of [place] 4.2.7.2.686 [place] [phone] [facility] [address] [place] 2020-08-12 2020-08-12 Final Expense Agent Keaton, Adc Lab Main [facility] 1.2.8 40.114 [id number] Univers 10:25:23 10:40:23 Visit Johanny Kaplan [place] 350.1.13.10 ity of [place] 4.2.7.2.[place] [phone] Ri dicmt nal 353 [facility] 2020-08-12 2020-08-12 Outpatient R RADIOLOGY [facility] [id number] Univers 00:00:00 00:00:00 ity of [facility] 2020-08-12 2020-08-12 Orders Doctor RAMIREZ 1.2.840.114 [id number] Univers 00:00:00 00:00:00 Only Unassigned, THEA 350.1.13.10 ity of [place] [facility] 4.2.7.2.686 Jose as [phone] [facility] [address] 2020-08-11 2020-08-11 Telephone [facility] 1.2.079.206 [id number] Univers 00:00:00 00:00:00 Sana Mathews 350.1.13.10 ity of [place].2.[place] [phone] Ri dical nal 204 [facility] 2020-07-26 2020-07-26 Outpatient R MIKE [facility] [id number] Univers 13:20:00 13:20:00 GRACY ity [facility] 2020-07-20 2020-07-20 Outpatient R EUSEBIO, [facility] [id number] Univers 10:00:00 10:00:00 BILAL ity [facility] 2020-07-12 2020-07-12 Telephone [facility] [id number] Univers 00:00:00 00:00:00 Sana Mathews [id number] [place] [phone] Ri dicmt nal 204 [facility] 2020-07-08 2020-07-08 Final Expense Agent Keaton, Pinky [facility] Main [facility] 1.2.8 40.114 [id number] Univers 10:28:55 10:43:55 Visit Tri Chin 350.1.13.10 [place] [phone] [facility] 353 [facility] 2020-07-08 2020-07-08 Outpatient R BRIAN [facility] [id number] Univers 10:30:00 10:30:00 TRI itomaira [facility] 2020-07-08 2020-07-08 Telephone [facility] [id number] Univers 00:00:00 00:00:00 Sana Mathews [id number] [place] [phone] Ri dical nal 204 [facility] 2020-07-08 2020-07-08 Orders Doctor GUZMÁN [id number] Univers 00:00:00 00:00:00 Only Unassigned, THEA 350.1.13.10 ity of [place] [facility] 4.2.7.2.686 Jose as [phone] [address] 2020-07-06 2020-07-06 Office [facility] [id number] Univers 09:48:07 10:54:20 Visit [facility] 350.1.13.10 it [place]2.[place] [facility] [phone] [facility] [address] [facility] 2020-07-06 2020-07-06 [facility] [id number] Univers 09:45:00 09:45:00 BILAL ity of [facility] 2020-06-30 2020-06-30 Final Expense Agent Keaton, Pinky [facility] Main [facility] 1.2.8 40.114 [id number] Univers 16:54:53 17:09:53 Visit Sana Gao 350.1.13.10 [place] [facility] [phone] [facility] 353 [facility] 2020-06-30 2020-06-30 Outpatient R MURRAY [facility] [id number] Univers 17:00:00 17:00:00 SANA ity of [facility] 2020-06-30 2020-06-30 Orders Doctor RAMIREZ 1.2.840.114 [id number] Univers 00:00:00 00:00:00 Only Unassigned, THEA 350.1.13.10 ity of [place] [facility] 4.2.7.2.686 Jose as [phone] [address] 2020-06-28 2020-06-28 Telephone Murray [facility] 1.2.659.850 3022 4788 Univers 00:00:00 00:00:00 Sana Mathews 350.1.13.10 [place] [facility] [phone] Ri dical nal 204 [facility] 2020-06-21 2020-06-21 Hospital Radiology [facility] 1.2.840.114 [id number] Univers 10:25:21 23:59:00 Encounter Reid 350.1.13.10 [place] [phone] [facility] [address] [place] 2020-06-21 2020-06-21 Outpatient R RADIOLOGY [facility] [id number] Univers 00:00:00 00:00:00 ity of [facility] 2020-06-04 2020-06-04 [facility] 1.2.840.114 [id number] 26 Univers 00:00:00 00:00:00 Management Sana Mathews 350.1.13.10 [place] Profess[place] [phone] [facility] 204 [facility] 2020-06-03 2020-06-03 Hospital [facility] 1.2.840.114 [id number] 756 Univers 16:10:40 23:59:00 Encounter Sana Mathews 350.1.13.10 [place] of [place] [phone] [facility] [address] 2020-06-03 2020-06-03 Nurse Nurse, [facility] Gu [facility] 1.2. 840.114 [id number] Univers 14:28:14 16:02:32 Visit Sana Gao 350.1.13.10 [place] Profess[place] [phone] [address] 2020-06-03 2020-06-03 Outpatient R [facility] [id number] Univers 14:30:00 14:30:00 ity of [facility] 2020-06-03 2020-06-03 Orders Doctor RAMIREZ 1.2.840.114 [id number] Univers 00:00:00 00:00:00 Only Unassigned, THEA 350.1.13.10 ity of [place] [facility] 4.2.7.2.686 Jose as [phone] [facility] [address] [place] 2020-06-02 2020-06-02 Final Expense Agent Keaton, Adc Lab Main [facility] 1.2.8 40.114 [id number] Univers 12:51:03 13:06:03 Visit Sana Gao 350.1.13.10 [place] Profess[place] [phone] Ri dical nal 353 [facility] 2020-06-02 2020-06-02 Outpatient R MURRAY [facility] [id number] Univers 13:00:00 13:00:00 SANAMIKKI mendiola [facility] 2020-06-01 2020-06-01 [facility] 1.2.840.114 [id number] Univers 00:00:00 00:00:00 Outreach Paulabdelrahman KEEN 350.1.13.10 i ty of [facility] [place].2.[place].2.[place] [facility] [phone] Ri dical [address] 2020-05-17 2020-05-17 [facility] [id number] Common 00:00:00 00:00:00 [facility] 2020-05-11 2020-05-11 Office [facility] 1.2.840.114 [id number] 08 Univers 10:39:02 11:23:09 Visit Sana Mathews 350.1.13.10 [place] of [place] Profess[place] [phone] Ri dical nal 204 [facility] 2020-05-11 2020-05-11 [facility] [id number] Univers 10:45:00 10:45:00 SANA mendiola [facility] 2020-04-27 2020-04-27 Out[facility] [id number] Univers 10:30:00 10:30:00 SANA mendiola [facility] 2020-04-22 2020-04-22 Emergency [facility] 1.2.810.828 [id number] Univers 09:35:00 10:45:00 Osito Mathews 350.1.13.10 i ty of [place] [phone] [facility] [address] [place] 2020-04-13 2020-04-13 Telephone Geovany Carbone [facility] 1.2.840.114 [id number] [id number] Univers 00:00:00 00:00:00 Formerly [facility] 350.1.13.10 it [place] of [place] [phone] [address] Office [facility] 2020-04-08 2020-04-08 Emergency Oscar Hill [facility] 1.2.840.114 [id number] Univers 18:57:00 21:59:00 Sue Jackson 350.1.13.10 i ty of [place].7.2.[place] [phone] [place] [address] [place] 2020-04-07 2020-04-07 Telephone [facility] 1.2.422.427 [id number] 7680 Univers 00:00:00 00:00:00 [place] 350.1.13.10 [place] [phone] [address] Office [facility] 2020-04-05 2020-04-05 Outpatient GEOVANY FERNANDEZ [facility] [id number] Univers 10:00:00 10:00:00 ity of [facility] 2020-04-05 2020-04-05 Final Expense Agent Keaton, Pinky Lab Main [facility] 1.2.8 40.114 [id number] Univers 09:08:27 09:23:27 Visit Geovany Carbone 350.1.13.10 ity of [place]2.[place] [facility] [phone] Ri dical nal 353 [facility] 2020-04-05 2020-04-05 Outpatient STLMLC [facility] [id number] Common 00:00:00 00:00:00 [facility] 2020-04-05 2020-04-05 Orders Doctor RAMIREZ 1.2.840.114 [id number] Univers 00:00:00 00:00:00 Only Unassigned, THEA 350.1.13.10 ity of [place] [facility] 4.2.7.2.686 Jose as [phone] [facility] [address] 2020-04-02 2020-04-02 Telephone [facility] 1.2.754.701 2314 9419 Univers 00:00:00 00:00:00 [place] 350.1.13.10 [place] [phone] [address] Office Building 2020-04-02 2020-04-02 Telephone Geovany Carbone [facility] 1.2.840.114 [id number] [id number] Univers 00:00:00 00:00:00 [facility] 350.1.13.10 it [place] of [place] [phone] [address] Office Building 2020-03-22 2020-03-22 Outpatient STLMLC ST[facility]C [id number] Common 00:00:00 00:00:00 [facility] 2020-03-10 2020-03-10 Outpatient STLMLC STLMLC [id number] Common 00:00:00 00:00:00 [facility] 2020-02-24 2020-02-24 Outpatient R SOHAIL [facility] [id number] Univers 10:30:00 10:30:00 [facility] 2020-02-10 2020-02-10 Outpatient STLMLC STLMLC [id number] Common 00:00:00 00:00:00 [facility] 2020-01-12 2020-01-12 Outpatient STLMLC STLMLC [id number] Common 00:00:00 00:00:00 [facility] 2019-11-28 2019-11-28 Telephone [facility] 1.2.364.635 [id number] Univers 00:00:00 00:00:00 Kendra SPECIALTY 350.1.13.10 ity of [place].2.[place] CENTER AT [phone] Ri rupert DIAZ [address] [place] [address] 2019-11-25 2019-11-25 Office [facility] 1.2.840.114 [id number] Univers 13:17:08 14:58:15 Visit Kendra SPECIALTY 350.1.13.10 ity of [place] CENTER AT [phone] Ri dicisaac DIAZ [address] [place] [address] 2019-11-25 2019-11-25 [facility] [id number] Univers 13:30:00 13:30:00 KENDRA ity [facility] 2019-11-25 2019-11-25 Orders Doctor RAMIREZ 1.2.840.114 [id number] Univers 00:00:00 00:00:00 Only Unassigned, THEA 350.1.13.10 ity of [place] [facility] 4.2.7.2.686 Jose as [phone] [address] 2019-11-18 2019-11-18 Outpatient Evaristo ODEN [facility] [id number] Univers 09:30:00 09:30:00 [facility] 2019-10-13 2019-10-13 Outpatient [facility] [id number] Common 10:00:00 10:00:00 [facility] 2018-11-29 2018-11-29 Telephone Murray [facility] 1.2.732.752 [id number] 3334 00:00:00 00:00:00 Sana Mathews 350.1.13.10 [place] 4.2.7.2.686 Professio [phone] [address] 2018-11-29 2018-11-29 Telephone Murray [facility] 1.2.642.560 9685 3334 Univers 00:00:00 00:00:00 Sana Mathews 350.1.13.10 [place] of [place] [phone] Ri dical [facility] 204 [facility] 2018-10-24 2018-10-24 Office Aleks NYEBER 1.2.840.114 [id number] 15:15:31 15:41:04 Visit Eirca Mathews 350.1.13.10 [place] 4.2.7.2.686 Professio [phone] [address] 2018-10-24 2018-10-24 Office Aleks NYEBER 1.2.840.114 [id number] Univers 15:15:31 15:41:04 Visit Erica Mathews 350.1.13.10 i ty of [place].2.[place] [phone] Ri dical nal [address] 2018-10-16 2018-10-16 Orders Doctor RAMIREZ 1.2.840.114 [id number] Univers 00:00:00 00:00:00 Only Unassigned, THEA 350.1.13.10 ity [facility] [place] [facility] 4.2.7.2.686 Jose as [phone] [facility] [address] Results Test Description Test Time Test Comments Results Result [facility] e Comments - XR PELVIS 1/2 2022-01-24 VIEWS 10:13:00 [facility] 1955 Sex: F Patient Name: VALENTINO DALAL Unit No: [id number] EXAMS: CPT CODE: [id number] XR PELVIS 03/13 VIEWS 77628 AP VIEW OF THE PELVIS. COMMENT: In [...] MD Technologist: Charles Munoz(R) Transcribed D/ (1013) [facility]: VAL[facility]AL [address] [facility] PHYS: MATVA.01 - Fabricio Cartagena : 1955 AGE: 66 SEX: F [place], [place] [address] LOC: YPhi507 A PHONE #: [phone] EXAM DATE: 01/20/2022 STATUS: ADM IN FAX #: [phone] RAD #: D/C DT PAGE 1 Signed Report Patient Name: VALENTINO DALAL Unit No: [id number] EXAMS: CPT CODE: [id number] XR PELVIS 1/2 VIEWS 20531 (Continued) Orig Print D/T: S: 01/24/2022 (1017) [facility] NAME: VALENTINO DALAL [address] [facility] PHYS: MATVA.01 - Fabricio Cartagena Lana : 1955 AGE: 66 SEX: F [place], [place] [address] LOC: Y.507 A PHONE #: [phone] EXAM DATE: 01/20/2022 STATUS: ADM IN FAX #: [phone] RAD #: D/C DT PAGE 2 Signed Report - XR PELVIS 1/2 2022-01-24 VIEWS 10:13:00 [facility] : 1955 Sex: F Patient Name: VALENTINO DALAL Unit No: [id number] EXAMS: CPT CODE: [id number] XR PELVIS 1/2 VIEWS 53388 AP VIEW OF THE PELVIS. COMMENT: In [...] MD Technologist: Charles Munoz(R) Transcribed D/ (1013) Celestine [facility] NAME: VALENTINO DALAL [address] [facility] PHYS: Martinez Hoffmanos Lana : 1955 AGE: 66 SEX: F [place] [address] LOC: Y.507 A PHONE #: [phone] EXAM DATE: 01/19/2022 STATUS: ADM IN FAX #: [phone] RAD #: D/C DT PAGE 1 Signed Report Patient Name: VALENTINO DALAL Unit No: [id number] EXAMS: CPT CODE: [id number] XR PELVIS 1/2 VIEWS 49325 (Continued) Orig Print D/T: S: 01/24/2022 (1017) [facility] NAME: VALENTINO DALAL [address] [place] [address] PHYS: Fabricio Hoffman : 1955 AGE: 66 SEX: F [place], [place] [address] LOC: Y.507 A PHONE #: [phone] EXAM DATE: 01/19/2022 STATUS: ADM IN FAX #: [phone] RAD #: D/C DT PAGE 2 Signed [...] the olga mmended formula for GFRby the [facility] for Adults.The GFR will not calcul ate if the sex is unknown or if t hepatient's age is <18 years. CREATININE (test code = 1.30 mg/dL 0.55-1.30 N CREAT) CALCIUM (test code = CA) 8.1 mg/dL 8.2-10.1 L HGB [id number] 06:43:00 Test Item Value Reference Range Interpretation Comments HEMOGLOBIN (test code = HGB) 9.9 g/dL 12-16 L HEMATOCRIT (test code = HCT) 29.7 % 37-47 L Hemoglobin and Hematocrit panel - [id number] 04:00:00 Test Item Value Reference Range Interpretation Comments hemoglobin (test code = hemoglobin) 9.9 g/dL 12-16 L hematocrit (test code = hematocrit) 29.7 % 37-47 L performing lab: (test code = performing lab:) [facility] [id number] 04:00:00 Test Item Value Reference Range Interpretation [...] lab: (test code = performing lab:) [facility] Blood 2022-01-20 04:00:00 Test Item Value Reference Range Interpretation Comments hemoglobin (test code = hemoglobin) 9.9 g/dL 12-16 L hematocrit (test code = hematocrit) 29.7 % 37-47 L performing lab: (test code = performing lab:) [facility] [id number] 04:00:00 Test Item Value Reference Range Interpretation [...] lab: (test code = performing lab:) [facility] Blood 2022-01-20 04:00:00 Test Item Value Reference Range Interpretation Comments hemoglobin (test code = hemoglobin) 9.9 g/dL 12-16 L hematocrit (test code = hematocrit) 29.7 % 37-47 L performing lab: (test code = performing lab:) [facility] metabolic [id number] 04:00:00 Test Item Value Reference Range Interpretation [...] performing lab: (test code = performing lab:) [facility] Sports Medicine- XR FLUORO [id number] 11:29:00 [facility] 1955 Sex: F Patient Name: VALENTINO DALAL Unit No: [id number] EXAMS: CPT CODE: [id number] XR FLUORO NDL 44072 Fluoroscopically guided right hip aspiration FINDINGS: After [...] MD Technologist: Kallie BECKWITH-RAD-TECH Transcribed D/ (1129) [email or web address] [facility] NAME: VALENTINO DALAL [address] [facility] Main PHYS: Fabricio Hoffman : 1955 AGE: 66 SEX: F [place], [place] [address] LOC: Y.RAD PHONE #: [phone] EXAM DATE: 12/02/2021 STATUS: DEP CLI FAX #: [phone] RAD #: D/C DT PAGE 1 Signed Report Patient Name: VALENTINO DALAL Unit No: [id number] EXAMS: CPT CODE: [id number] XR FLUORO NDL 63597 (Continued) Orig Print D/T: S: 12/07/2021 (1132) [facility] NAME: VALENTINO DALAL [address] [facility] PHYS: JACKLYN.01 - Fabricio Cartagena : [birth year] AGE: 66 SEX: F [place], [place] [address] LOC: Y.RAD PHONE #: [phone] EXAMDATE: 12/02/2021 STATUS: DEP CLI FAX #: [phone] RAD #: D/C DT PAGE 2 Signed Report- XR FLUORO [id number] 11:29:00 [facility] : 1955 Sex: F Patient Name: VALENTINO DALAL Unit No: [id number] EXAMS: CPT CODE: [id number] XR FLUORO NDL 76234 Fluoroscopically guided right hip aspiration FINDINGS: After [...] MD Technologist: Kallie BECKWITH-RAD-TECH Transcribed D/ (1129) FlorenceJ [facility] NAME: VALENTINO DALAL [address] [place] [address] PHYS: Fabricio Hoffman : 1955 AGE: 66 SEX: F [place] [address] LOC: Y.RAD PHONE #: [phone] EXAM DATE: 12/02/2021 STATUS: DEP CLI FAX #: [phone] RAD #: D/C DT PAGE 1 Signed Report Patient Name: VALENTINO DALAL Unit No: [id number] EXAMS: CPT CODE: [id number] XR FLUORO NDL 29557 (Continued) Orig Print D/T: S: 12/07/2021 (1132) [facility] NAME: VALENTINO DALAL [address] [place] [address] PHYS: Fabricio Hoffman : 1955 AGE: 66 SEX: F [place] [address] LOC: Y.RAD PHONE #: [phone] EXAM DATE: 12/02/2021 STATUS: DEP CLI FAX #: [phone] RAD #: D/C DT PAGE [address] CE[id number] 16:31:00 Test Item Value Reference Range Interpretation Comments SYNOVIAL FLD BLOODY LT. YELLOW A COLOR (test code = COLSY) SYNOVIAL FLD SLIGHT HAZY CLEAR APPEARANCE (test code = APPSY) SYNOVIAL FLD 1 mL VOLUME (test code = VOLSY) SYNOVIAL FLD WBC 1170.000 /MM3 0-200 H (test code = WBCSY) SYNOVIAL FLD RBC 204113.000 0-2 H NOTE: An au tomated (test [...] code = PLASY) SPECIMEN COMMENT: ASPIRATIONCBC W/MANUAL [id number] 13:15:00 Test Item Value Reference Range Interpretation [...] % 1-3 H code = EOS) SED [id number] 13:15:00 Test Item Value Reference Range Interpretation Comments SED RATE (test code = SEDW) 30 mm/hr 0-20 H COMPREHENSIVE METABOLIC [id number] 12:49:00 Test Item Value Reference Range Interpretation [...] RATE (test code = GFR) mL/mi n/1.73 i7Agdjexfmd Range:Healthy Adults >90 mL/min/1.73 m2 For Chronic Kidney Disease: Stage II Mild Decrease i n GFR 60-90 Stage III Moderate Decre ase in GFR 30-59 St age IV Severe [...] H TOTAL (test code = ALKP) PROTHROMBIN [id number] 12:49:00 Test Item Value Reference Range Interpretation [...] BLOOD, PT every other day NTHROMBOPLASTIN TIME [id number] 12:49:00 Test Item Value Reference Range Interpretation [...] = 1.7 mg/dL <0.9 CRP) CBC W/AUTO [id number] 12:39:00 Test Item Value Reference Range Interpretation [...] code = NRBC) POCT URINALYSIS W SPECIFIC [id number] 16:01:00 Test Item Value Reference Range Interpretation Comments POCT U SP GRAV (test 1.015 mg/dl 1.005-1.025 code = 3255) POCT PH U (test code = 5 mg/dl 5-8 3254) POCT U LEUK EST (test ++ Negative - code = 3263) Negative POCT U NIT (test code positive [...] controls Lab Interpretation Abnormal (test code = 12703-8) [facility] Notes Date/Time Note Provider Source 2022-01-26 17:22:00-00:00 [id number] [place] [address] PATIENT NAME: VALENTINO DALAL ADMIT DATE: 01/19/22 ACCOUNT NO: [id number] ROOM NO: [facility] AGE: 66 REPORT TYPE: OPERATIVE REPORT SEX: F ADMITTING PHYSICIAN:Fabricio Cartagena MD ATTENDING PHYSICIAN:Fabricio Cartagena MD OPERATION DATE: 01/19/2022 SURGEON: Vineet Weeks MD PIANO REGULATOR: Fabricio Cartagena MD PREOPERATIVE DIAGNOSIS: Periprosthetic fracture [...] refill. The skilled assistance of Dr. Fabricio callejas uring the fracture fixation portion was necessary because [...] be possible without the help of the sk dain court assistant familiar with the procedure and capable safely performing the aforementioned tasks. Dictated By: Vineet Weeks MD Date Dictated: 01/26/2022 17:22:48 Date Transcribed: 01/26/2022 20:46:00 Rhianna/ROHAN Receipt ID: [id number] Authenticated by Vineet Weeks MD On 09:31:57 AM at 0931 PATIENT NAME: VALENTINO DALAL 2022-01-24 16:57:00-00:00 [facility] Clinical Note REPORT#:[id number] REPORT STATUS: Signed DATE:01/24/22 TIME: 1656 PATIENT: VALENTINO DALAL UNIT #: [id number] ROOM/BED: [address] : 56 AGE: 66 SEX: F ATTEND: Mary Cartagena MD ADM AUTHOR: Brant Inman MD * ALL edits or amendments must be made on the el ectronic/computer document * Clinical Note Note: Progress Note Dictated [id number] Electronically Signed by Brant Inman MD o n 01/24/22 at 1701 RPT #:[id number] END OF REPORT 2022-01-24 15:31:00-00:00 [id number] [facility] [address] [place] [address] PATIENT NAME: VALENTINO DALAL ADMIT DATE: 01/19/22 ACCOUNT NO: [id number] ROOM NO: Y.507 AGE: 66 REPORT TYPE: PROGRESS NOTE SEX: [...] The patient will also be discharged on [place] 5 m g q. 6 hours p.r.n. for pain, dispensed 32 pills. The patient is instr ucted to take it q. 6 hours p.r.n. for breakthrough pain symptoms. The patient to follow up with [facility]. [facility] 2 weeks. Dictated By: Brant Inman MD Date Dictated: 01/24/2022 15:31:37 Date Transcribed: 01/24/2022 17:20:57 SIM/MUR/YOLANDA/SHA Receipt ID: [id number] CC: Fabricio Cartagena MD Authenticated by Brant Inman MD On 01/31 04:51:20 PM at 0451 PATIENT NAME: VALENTINO DALAL 2022-01-24 08:38:00-00:00 [facility] Discharge Summary REPORT#:[id number] REPORT STATUS: Signed DATE:01/24/22 TIME: 08 PATIENT: VALENTINO DALAL UNIT #: [id number] [facility] AGE: 66 SEX: F ATTEND: Mary Cartagena MD ADM AUTHOR: Elida Yanes * ALL edits or amendments must be made on the [employer]/computer document * General Information Discharge date: 01/24/22 [...] limitations were reviewed with the patient ida cindy the hospitalization. Diet: As per preoperatively Prescriptions [...] Routines: None at 0841 at 1647 RPT #:[id number] END OF REPORT 2022-01-23 17:10:00-00:00 [facility] Clinical Note REPORT#:[id number] REPORT STATUS: Signed DATE:01/23/22 TIME: 1710 PATIENT: VALENTINO DALAL UNIT #: [id number] [facility] AGE: 66 SEX: F ATTEND: Mary Cartagena MD ADM AUTHOR: Brant Inman MD * ALL edits or amendments must be made on the el ectronic/computer document * Clinical Note Note: Consult Note Dictated [id number] Electronically Signed by Brant Inman MD o n 01/23/22 at 1713 RPT #:[id number] END OF REPORT 2022-01-23 13:06:00-00:00 6311-5193 [place] [address] PATIENT NAME: VALENTINO DALAL ADMIT DATE: 01/19/22 ACCOUNT NO: [id number] [facility] AGE: 66 REPORT TYPE: CONSULTATION REPORT SEX: [...] manag ement. The patient was admitted to [facility] on January 19. The patient had [...] The patient is now touchdown weightbearing in th e right leg. Postoperatively, the patient was [...] Dictated: 01/23/2022 13:06:44 Date Transcribed: 01/23/2022 19:03:28 SIM/LAT/BRANT/SHA Receipt ID: [id number] Authenticated by Brant Inman MD On 01/31 04:51:16 PM at 0451 PATIENT NAME: VALENTINO DALAL 2022-01-23 07:05:00-00:00 [facility] Pain Management Progress Note REPORT#:[id number] REPORT STATUS: Signed DATE:01/23/22 TIME: 704 PATIENT: VALENTINO DALAL UNIT #: [id number] [facility] AGE: 66 SEX: F ATTEND: Mary Cartagena MD ADM AUTHOR: Indra Humphries APRN * ALL edits or amendments must be made on the [employer]/computer document * Subjective Chief complaint: Post OP Pain Management Requested by Surgeon Right hip and Right Leg pain s/p Right Hip Arthr oplasty Revision with ORIF of periprosthetic femur fracture HPI: Interval History: Right hip and Right Leg pain s /p Right Hip Arthroplasty Revision with ORIF of periprosthetic fem ur fracture. Consultation requested by Dr Cartagena to initiate PHARMACIST MANAGER pump for patient last night. Patient reports her pain is primarily in the rig ht anterior and lateral thigh area, not so much the hip. Due to the pain, patient's ability to frankie ate walking is limited to the door of her room. Patient ra ian severe pain 9-10/10 with an inability to sleep. Patient reports significant improved pain management with the PHARMACIST MANAGER pump, now 3-4 /10. Patient reports finally getting a good nigh [...] 84 16 152/74 99.8 98 Room air 01/220 Room air History: PMH: SVT-Ablation 1996, HTN, GERD, FORMER SMOKE R 3PPD X 40 YRS POD: 4 Medication: DILAUDID Pump settings: BASAL RATE: O DOSE: 0.1MG DELAY: 8 MIN PHARMACIST MANAGER Use: Moderate Activity status: OOB Pain: 10 Physical Exam: VAS: 310 LOS: Awake, Alert, Oriented Resp Quality: Regular, Unlabored, Even Side Effects: None PATIENT RESTING IN BED WATCHING TV AND APPEARS COMFORTABLE AND WELL RESTED Plan: CONTINUE PHARMACIST MANAGER PUMP PATIENT TO BE SEEN BY DR INMAN IN THE AM. at 0732 RPT #:[id number] END OF REPORT 2022-01-22 09:09:00-00:00 [facility] Clinical Note REPORT#:[id number] REPORT STATUS: Signed DATE:01/22/22 TIME: 908 PATIENT: VALENTINO DALAL UNIT #: [id number] [facility] AGE: 66 SEX: F ATTEND: Mary Cartagena MD ADM AUTHOR: Fabricio Cartagena MD * ALL edits or amendments must be made on the [employer]/computer document * Clinical Note Note: Able to [...] Resp 18 01/22 717 FiO2 32 01/20 030 O2 Flow Rate 3 01/20 306 at 0910 RPT #:[id number] END OF REPORT 2022-01-21 11:20:00-00:00 [facility] Orthopaedic Progress Note REPORT#:[id number] REPORT STATUS: Signed DATE:01/21/22 TIME: 1120 PATIENT: VALENTINO DALAL UNIT #: [id number] ROOM/BED: [address] : 57 AGE: 66 SEX: F ATTEND: Mary Cartagena MD ADM AUTHOR: Elida Yanes * ALL edits or amendments must be made on the el [employer]/computer document * Diagnosis, Assessment Plan Free text A P: Comfortable. Pain moderate. No Shortness of harjit th or chest symptoms. Afebrile VSS Alert, oriented, [...] 1 03/23/21 at 1122 at 0908 RPT #:[id number] END OF REPORT 2022-01-20 10:40:00-00:00 [facility] ([facility]) Orthopaedic Progress Note REPORT#:[id number] REPORT STATUS: Signed DATE:01/20/22 TIME: 1040 PATIENT: VALENTINO DALAL UNIT #: [id number] [facility] AGE: 66 SEX: F ATTEND: Mary Cartagena MD ADM AUTHOR: Hafsa Mathew * ALL edits or amendments must be made on the [employer] document * Subjective HPI: Patient sleeping upon exam. No family in the [place]. Objective VS: Last Documented: Result Date Time [...] Sodium Chloride (SODIUM CHLORIDE) 20 ML ASDIR IV Acetaminophen (TYLENOL) 650 MG Q4H PRN PRN [...] (DC) Lactated Ringer's (LACTATED RINGERS) 4,000 ML .S TK-MED ONE IV (DC) Lidocaine HCl (XYLOCAINE MPF 1% 5 mL) 5 ML .STK- MED ONE IV (DC) Midazolam HCl (VERSED) 5 MG .STK-MED ONE IV (DC) Nicardipine HCl (CARDENE I.V.) 25 MG .STK-MED ON E IV (DC) Ondansetron HCl (ZOFRAN) 4 MG .STK-MED ONE IV (D C) Propofol (DIPRIVAN) 200 MG .STK-MED ONE IV (DC) Rocuronium [place] (Rocuronium [place] 10 mg/mL) 50 MG .STK-MED ONE IV ( DC) Sodium Chloride (SODIUM CHLORIDE 0.9%) 100 ML .S TK-MED ONE IV (DC) Sugammadex Sodium (Bridion) 200 MG .STK-MED ONE IV (DC) Tranexamic Acid (CYKLOKAPRON) 2,000 MG .STK-MED ONE IV (DC) Vecuronium [place] (NORCURON) 10 MG .STK-MED ONE IV (DC) [...] (DC) Lactated Ringer's (LACTATED RINGERS) 1,000 ML MI EOP IV FLUID IV (DC) Lidocaine HCl [...] Vineet Weeks MD on at 0902 RPT #:[id number] END OF REPORT 2022-01-20 07:00:00-00:00 [facility] ([facility]) Orthopaedic Progress Note REPORT#:[id number] REPORT STATUS: Signed DATE:01/20/22 TIME: 0700 PATIENT: VALENTINO DALAL UNIT #: [id number] ROOM/BED: [address] : 56 AGE: 66 SEX: F ATTEND: Mary Cartagena MD ADM AUTHOR: Elida Yanes * ALL edits or amendments must be made on the el [employer]/computer document * Diagnosis, Assessment Plan Free text A P: Comfortable. Pain mild-moderate. No Shortness of breath or chest symptoms. Afebrile VSS Alert, oriented, no acute distress Wound clean and dry. No significant drainage. Neurologic and vascular systems intact distally. (-) Endy s (-) Calf tenderness A/P: s/p Joint Arthroplasty 1)Anticoagulation instituted 2)PT progressing 3)Following labs 4)Discharge planning at 0700 at 0952 RPT #:[id number] END OF REPORT 2022-01-20 06:58:00-00:00 [id number] [place] [address] PATIENT NAME: VALENTINO DALAL ADMIT DATE: 01/19/22 ACCOUNT NO: [id number] ROOM NO: Y.[id number] AGE: 66 REPORT TYPE: OPERATIVE REPORT SEX: F ADMITTING PHYSICIAN:Fabricio Cartagena MD ATTENDING PHYSICIAN:Fabricio Cartagena MD OPERATION DATE: PREOPERATIVE DIAGNOSIS: Loosening of right hip a rthroplasty. POSTOPERATIVE DIAGNOSIS: Loosening of right hip arthroplasty and femur fracture. PROCEDURES: 1. Revision right total hip replacement. 2. Open reduction and internal fixation of right femur. SURGEON: Fabricio Dawson M.D. PIANO REGULATOR: Vineet Weeks M.D. COMPONENTS USED IMPLANTS: Rubi [...] with osteotomes as well as the Ultra dri ve. The proxiaml cement was easy to remove, [...] the trochanter through drill holes. PATIENT NAME: VALENTINO DALAL The vastus lateralis was kemal sed [...] Date Transcribed: 01/20/2022 07:45:22 SORIN/ZOHRA/BRANT Receipt ID: [id number] Authenticated and Edited by Fabricio Cartagena MD On 01/22/22 7:58:29 AM at 0801 PATIENT NAME: VALENTINO DALAL 2022-01-19 14:23:00-00:00 [facility] Brief Op Note REPORT#:[id number] REPORT STATUS: Signed DATE:01/19/22 TIME: 1423 PATIENT: VALENTINO DALAL UNIT #: [id number] ROOM/BED: [place] [address] : 56 AGE: 66 SEX: F ATTEND: Mary Cartagena MD ADM AUTHOR: Fabricio Cartagena MD * ALL edits or amendments must be made on the el [employer]/computer document * Op/Inv Proc Note - Brief Pre-procedure diagnosis: R LOOSE JEAN CARLOS Post-procedure diagnosis: same as pre procedure dx Procedures performed: R REV JEAN CARLOS Primary Surgeon: OSIEL Co-surgeon: JENNIFER Store Promoter(s): Lana YANES PA-C Findings: LOOSE STEM, ACETABULAR WEAR WELL-EMBEDDED DISTAL CEMENT, WEAKENED BONE Complications: INTRAOP FEMUR FX Estimated blood loss in ml's: 700 CC Specimens removed/altered: none at 2055 [facility] #:[id number] END OF REPORT 2021-11-21 11:37:00-00:00 [id number] [facility] [address] [place] [address] PATIENT NAME: VALENTINO DALAL ADMIT DATE: ACCOUNT NO: [id number] ROOM NO: AGE: 66 REPORT TYPE: ELECTROCARDIOGRAM SEX: F ADMITTING PHYSICIAN:Fabricoi Cartagena MD ATTENDING PHYSICIAN:Fabricio Cartagena MD Order: [id number] Test Reason : PRE-OP CLEARANCE HTN Test [...] was found Confirmed by DOM FORBES MD ([id number]) on 11/22/2021 5:35:29 PM Referred By: Fabricio Cartagena Confirmed by:RENARD FORBES MD PATIENT NAME: VALENTINO DALAL
[2022-08-26 20:01] LABS: Specific Gravity 1.009 (1.005-1.030); Urine Bacteria >50 /HPF (<20); Urine Bilirubin NEGATIVE (Negative); Urine Blood Negative (Negative); Urine Clarity Extremely Turbid (Clear); Urine Color Yellow (Yellow); Urine Glucose NEGATIVE (Negative); Urine Protein NEGATIVE (Negative); Urine RBC <5 /HPF (None Seen); Urine Urobilinogen Normal (Normal); Urine WBC Clump Rare /HPF (None Seen); Urine pH 7.5 (5.0-7.0)
[2022-08-26 20:06] LABS: Absolute Lymphocytes (CBC) 1.6 K/uL (0.7-4.9); Hematocrit 34.9 % (36.0-45.0); Lymphocytes % 23.2 % (15.3-44.8); MCV 78.8 fL (80-100); MPV 8.5 fL (7.6-11.3); RBC Red Blood Cell Count 4.43 M/uL (3.86-4.86)
[2022-08-26] MEDS ORDERED: DICYCLOMINE HCL 10 MG CAP ONE (20:12)
[2022-08-26] MEDS ORDERED: ACETAMINOPHEN 500 MG TAB ONE (20:12)
[2022-08-26] MEDS ORDERED: IBUPROFEN 200 MG TAB PO ONE (20:12)
[2022-08-26] MEDS ORDERED: IBUPROFEN 400 MG TAB ONE (20:12)
[2022-08-26] MEDS ORDERED: ONDANSETRON 4 MG/2 ML VIAL ONE (20:13)
[2022-08-26 20:21] LABS: Albumin 3.1 g/dL (3.4-5.0); Bilirubin Total 0.3 mg/dL (0.2-1.0); Potassium 3.9 mEq/L (3.5-5.1); Protein, Total 7.7 g/dL (6.4-8.2)
[2022-08-26] MEDS ORDERED: levoFLOXacin 250 MG TAB ONE (20:31)
--- NOTE | 2022-08-26 21:37 | EDPHYS ---
Physician Documentation [facility] Name: Bernadine Dalal Age: 67 yrs Sex: Female : 1955 Arrival Date: 08/26/2022 Time: 19:28 Bed 2 Private MD: ED Physician Artemio Oseguera HPI: 08/26 19:35 This 67 yrs old Female presents to ER via Unassigned with complaints of Back sp4 Pain, Pain With Urination. 21:31 Very pleasant 67-year-old female presents with worsening right upper back pain, pain sp4 with urination, bladder pain, burning with urination starting yesterday afternoon. Patient states she commonly gets these symptoms with UTI. Patient took Azo at home for bladder pain.. Historical: - Allergies: 19:48 PENICILLINS; as6 19:48 Vancomycin; as6 - PMHx: 19:48 BRAIN CYST; Chronic pain; fall/L hip fx, L hip infected after FX; Hypertensive as6 disorder; Migraines; prolapsed uterus; SVT; UTI; - PSHx: 19:48 Left hip replacement; Right hip replacement; Total abdominal hysterectomy; as6 - Immunization history:: Client reports receiving the 2nd dose of the Covid vaccine, moderna. - Social history:: Smoking status: Patient denies any tobacco usage or history of. - Family history:: not pertinent. ROS: 21:31 Constitutional: Negative for fever, chills, and weight loss, Eyes: Negative for injury, sp4 pain, redness, and discharge, ENT: Negative for injury, pain, and discharge, Back: Negative for injury positive for right upper back pain : Negative for injury, bleeding, discharge, and swelling, positive for pain on urination, burning with urination, suprapubic pain. Positive for right upper back pain MS/Extremity: Negative for injury and deformity. 21:31 All other systems are negative. Exam: 21:31 Constitutional: This is a well developed, well nourished patient who is awake, alert, sp4 and in no acute distress. Head/Face: Normocephalic, atraumatic. Eyes: Pupils equal round and reactive to light, extra-ocular motions intact. Lids and lashes normal. Conjunctiva and sclera are not injected. Cornea within normal limits. Periorbital areas with no swelling, redness, or edema. ENT: Nares patent. No nasal discharge, no septal abnormalities noted. Tympanic membranes are normal and external auditory canals are clear. Oropharynx with no redness, swelling, or masses, exudates, or evidence of obstruction, uvula midline. Mucous membranes moist. Neck: Trachea midline, no thyromegaly or masses palpated, and no cervical lymphadenopathy. Supple, full range of motion without nuchal rigidity, or vertebral point tenderness. Chest/axilla: Normal chest wall appearance and motion. Nontender with no deformity. No lesions are appreciated. Cardiovascular: Regular rate and rhythm with a normal S1 and S2. No gallops, murmurs, or rubs. Normal PMI, no JVD. No pulse deficits. Respiratory: Lungs have equal breath sounds bilaterally, clear to auscultation and percussion. No rales, rhonchi or wheezes noted. No increased work of breathing, no retractions or nasal flaring. Abdomen/GI: Soft, non-tender, with normal bowel sounds. No distension or tympany. No guarding or rebound. No evidence of tenderness throughout. Back: No spinal tenderness. Positive right CVA tenderness Skin: Warm, dry with normal turgor. Normal color with no rashes, no lesions, and no evidence of cellulitis. MS/ Extremity: Pulses equal, no cyanosis. Neurovascular intact. Full, normal range of motion. Neuro: Awake and alert, GCS 15, oriented to person, place, time, and situation. Cranial nerves II-XII grossly intact. Motor strength 5/5 in all extremities. Sensory grossly intact. Psych: Awake, alert, with orientation to person, place and time. Behavior, mood, and affect are within normal limits Vital Signs: 19:48 BP 176 / 76; Pulse 74; Resp 18 S; Temp 97.4(O); Pulse Ox 100% on R/A; Weight 79.83 kg as6 (R); Height 5 ft. 7 in. (R); Pain 9/10; 20:11 BP 145 / 73; Pulse 84; Resp 16; Pulse Ox 98% on R/A; kd3 20:58 BP 141 / 64; Pulse 67; Resp 19; Pulse Ox 95% on R/A; kd3 21:42 BP 136 / 63; Pulse 61; Resp 15; Pulse Ox 100% on R/A; kd3 19:48 Body Mass Index 27.57 (79.83 kg, 170.18 cm) as6 19:48 Pain Scale: Adult as6 MDM: 19:35 Patient medically screened. sp4 21:31 Differential diagnosis: Ligament Injury Pyelonephritis spinal injury, Ureterolithiasis. sp4 Data reviewed: vital signs, nurses notes, old medical records, lab test result(s). Consideration of Admission/Observation Escalation of care including admission/observation considered. ED course: Analysis reveals signs of urinary tract infection, CBC reveals no elevated white cells. 08/26 19:34 Order name: CBC with Diff; Complete Time: 21:29 sp4 08/26 19:34 Order name: CMP; Complete Time: 21:29 sp4 08/26 19:34 Order name: Urinalysis w/ reflexes; Complete Time: 20:12 sp4 08/26 20:04 Order name: Urine Culture EDWA 08/26 19:34 Order name: IV Saline Lock; Complete Time: 19:59 sp4 08/26 19:34 Order name: Labs collected and sent; Complete Time: 19:59 sp4 Administered Medications: 20:05 Drug: Ibuprofen PO 600 mg Route: PO; kd3 21:44 Follow up: Response: No adverse reaction; Pain is decreased kd3 20:05 Drug: Acetaminophen PO 1000 mg Route: PO; kd3 21:44 Follow up: Response: No adverse reaction kd3 20:05 Drug: Dicyclomine PO 20 mg Route: PO; kd3 21:44 Follow up: Response: No adverse reaction kd3 20:05 Drug: Ondansetron IVP 4 mg Route: IVP; Site: right forearm; kd3 21:44 Follow up: Response: No adverse reaction; Nausea is decreased kd3 20:26 Drug: LevOfloxacin PO 500 mg Route: PO; ll3 21:44 Follow up: Response: No adverse reaction kd3 Disposition Summary: 08/26/22 21:36 Discharge Ordered Location: Home sp4 Problem: new sp4 Symptoms: have improved sp4 Condition: Stable sp4 Diagnosis - Acute cystitis sp4 - UTI/ Urinary tract infection, site not specified sp4 Followup: sp4 - With: Private Physician - When: 7 - 10 days - Reason: Recheck today's complaints Discharge Instructions: - Discharge Summary Sheet sp4 - Urinary Tract Infection, Adult, Poyc-uz-Uvmx sp4 Prescriptions: - Ibuprofen 600 mg Oral Tablet - take 1 tablet by ORAL route every 6 hours As needed take with food; 30 tablet; sp4 Refills: 0, Product Selection Permitted - Pyridium 200 mg Oral Tablet - take 1 tablet by ORAL route every 8 hours for 3 days; 9 tablet; Refills: 0, sp4 Product Selection Permitted - levofloxacin 500 mg Oral Tablet - take 1 tablet by ORAL route once daily for 7 days; 7 tablet; Refills: 0, sp4 Product Selection Permitted Signatures: Dispatcher [employer] EDEric Rosen RN RN as6 Grace Cevallos RN RN ll3 Chrissie Grossman RN RN kd3 Artemio Oseguera MD MD sp4
--- NOTE | 2022-08-26 21:37 | ER ---
Nurse's Notes [facility] Name: Bernadine Dalal Age: 67 yrs Sex: Female : 1955 Arrival Date: 08/26/2022 Time: 19:28 Bed 2 Private MD: Diagnosis: Acute cystitis;UTI/ Urinary tract infection, site not specified Presentation: 08/26 19:48 Chief complaint: Patient states: "I think I have a UTI. I have back pain, it hurts to as6 pee, and it smells. I'm also nauseous". Coronavirus screen: At this time, the client does not indicate any symptoms associated with coronavirus-19. Ebola Screen: No symptoms or risks identified at this time. Initial Sepsis Screen: Does the patient meet any 2 criteria? No. Patient's initial sepsis screen is negative. Does the patient have a suspected source of infection? No. Patient's initial sepsis screen is negative. Risk Assessment: Do you want to hurt yourself or someone else? Patient reports no desire to harm self or others. Onset of symptoms was August 25, 2022. 19:48 Acuity: JODEE 3 as6 19:48 Method Of Arrival: Ambulatory as6 Triage Assessment: 20:12 General: Appears uncomfortable, Behavior is calm, cooperative. Pain: Complains of pain kd3 in left low back and right low back. Neuro: Level of Consciousness is awake, alert, obeys commands, Oriented to person, place, time, situation. Respiratory: Airway is patent Trachea midline Respiratory effort is even, unlabored, Respiratory pattern is regular, symmetrical. Musculoskeletal: Circulation, motion, and sensation intact. Historical: - Allergies: 19:48 PENICILLINS; as6 19:48 Vancomycin; as6 - PMHx: 19:48 BRAIN CYST; Chronic pain; fall/L hip fx, L hip infected after FX; Hypertensive as6 disorder; Migraines; prolapsed uterus; SVT; UTI; - PSHx: 19:48 Left hip replacement; Right hip replacement; Total abdominal hysterectomy; as6 - Immunization history:: Client reports receiving the 2nd dose of the Covid vaccine, moderna. - Social history:: Smoking status: Patient denies any tobacco usage or history of. - Family history:: not pertinent. Screenin:12 [facility] ED Fall Risk Assessment (Adult) History of falling in the last 3 months, kd3 including since admission No falls in past 3 months (0 pts) Confusion or Disorientation No (0 pts) Intoxicated or Sedated No (0 pts) Impaired Gait No (0 pts) Mobility Assist Device Used No (0 pt) Altered Elimination No (0 pt) Score/Fall Risk Level 0 - 2 = Low Risk Maintained a safe environment. Abuse screen: Denies threats or abuse. Denies injuries from another. Nutritional screening: No deficits noted. Tuberculosis screening: No symptoms or risk factors identified. Assessment: 20:13 General: see triage assessment . kd3 21:43 Reassessment: Patient states feeling better. Patient states symptoms have improved. kd3 Neuro: Level of Consciousness is awake, alert, obeys commands. Respiratory: Airway is patent Trachea midline Respiratory effort is even, unlabored, Respiratory pattern is regular, symmetrical. Vital Signs: 19:48 BP 176 / 76; Pulse 74; Resp 18 S; Temp 97.4(O); Pulse Ox 100% on R/A; Weight 79.83 kg as6 (R); Height 5 ft. 7 in. (R); Pain 9/10; 20:11 BP 145 / 73; Pulse 84; Resp 16; Pulse Ox 98% on R/A; kd3 20:58 BP 141 / 64; Pulse 67; Resp 19; Pulse Ox 95% on R/A; kd3 21:42 BP 136 / 63; Pulse 61; Resp 15; Pulse Ox 100% on R/A; kd3 19:48 Body Mass Index 27.57 (79.83 kg, 170.18 cm) as6 19:48 Pain Scale: Adult as6 ED Course: 19:32 Patient arrived in ED. ja2 19:34 Artemio Oseguera MD is Attending Physician. sp4 19:47 Arm band placed on. as6 19:50 Triage completed. as6 19:58 Inserted saline lock: 20 gauge in right forearm, using aseptic technique. Blood kd3 collected. 19:59 Chrissie Grossman, RN is Primary Nurse. kd3 19:59 CBC with Diff Sent. kd3 19:59 CMP Sent. kd3 19:59 Urinalysis w/ reflexes Sent. kd3 20:13 Patient has correct armband on for positive identification. kd3 21:43 No provider procedures requiring assistance completed. IV discontinued, intact, kd3 bleeding controlled, No redness/swelling at site. Pressure dressing applied. Administered Medications: 20:05 Drug: Ibuprofen PO 600 mg Route: PO; kd3 21:44 Follow up: Response: No adverse reaction; Pain is decreased kd3 20:05 Drug: Acetaminophen PO 1000 mg Route: PO; kd3 21:44 Follow up: Response: No adverse reaction kd3 20:05 Drug: Dicyclomine PO 20 mg Route: PO; kd3 21:44 Follow up: Response: No adverse reaction kd3 20:05 Drug: Ondansetron IVP 4 mg Route: IVP; Site: right forearm; kd3 21:44 Follow up: Response: No adverse reaction; Nausea is decreased kd3 20:26 Drug: LevOfloxacin PO 500 mg Route: PO; ll3 21:44 Follow up: Response: No adverse reaction kd3 Medication: 20:13 VIS not applicable for this client. kd3 Outcome: 21:36 Discharge ordered by . sp4 21:43 Discharged to home ambulatory. kd3 21:43 Condition: stable 21:43 Discharge instructions given to patient, Instructed on discharge instructions, follow up and referral plans. Demonstrated understanding of instructions, follow-up care, medications, Prescriptions given X 3. 21:44 Patient left the ED. kd3 Addendum: 08/29/2022 08:22 Addendum: Culture Results: Positive urine culture. No further action required. Bacteria a a5 sensitive to prescribed antibiotic. Signatures: Julia Noyola, RN RN [id number] Donna Dalal Ashby, RN RN as6 Grace Cevallos RN RN ll3 Chrissie Grossman RN RN kd3 Artemio Oseguera MD MD sp4
[2022-08-26 22:25] VITALS: TEMP 97.4
[2022-08-26 22:32] VITALS: BP 136/63; O2SAT 100
== END 2022-08-26 21:44 | disposition home or self-care (01) ==
LOC: ER 19:28
DX: N30.00 Acute cystitis without hematuria (principal); I10 Essential (primary) hypertension; Z88.0 Allergy status to penicillin; Z88.3 Allergy status to other anti-infective agents
CPT/HCPCS: 87088; 85025; 81001; 87086; 36415; 80053; 96374; 99284; J2405; 87077; 87186

== ENCOUNTER → 2023-03-10 | Emergency (ER) | payer OTHER ==
[~2023-03-10] MED LIST: HYDROCODONE/APAP 10/325 TAB ONE
--- OUTSIDE RECORDS SUMMARY | 2023-03-10 13:45 | XMS REPORT | Continuity of Care Document ---
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 Kenalog (Triamcinol one) 0 3-08 00:00: 00 No 40mg [facility] Bupivicaine [place] Bupivicaine [place] 2020-0 3-08 00:00: 00 No 2.5mg [facility] Kenalog (Triamcinol one) Kenalog (Triamcinol one) 0 3-08 00:00: 00 No 40mg [facility] Bupivicaine [place] Bupivicaine [place] 2020-0 3-08 00:00: 00 No 2.5mg [facility] Kenalog (Triamcinol one) Kenalog (Triamcinol one) 2020-0 3-08 00:00: 00 No 40mg [facility] Bupivicaine [place] Bupivicaine [place] 2020-0 3-08 00:00: 00 No 2.5mg [facility] Kenalog (Triamcinol one) Kenalog (Triamcinol one) 3-08 00:00: 00 No 40mg [facility] Bupivicaine [place] Bupivicaine [place] 3-08 00:00: 00 No [facility] Kenalog (Triamcinol one) Kenalog (Triamcinol one) 3-08 00:00: 00 No 40mg [facility] Bupivicaine [place] Bupivicaine [place] 2020-0 308 00:00: 00 No 2.5mg [facility] ibuprofen 600 mg tablet 04-08 00:00: 00 Yes [id number] 600mg Take 1 tablet by mouth every 6 (six) hours as needed for Pain (scale 4-6). [facility] ibuprofen 600 mg tablet 04-08 00:00: 00 Yes [id number] 600mg Take 1 tablet by mouth every 6 (six) hours as needed for Pain (scale 4-6). [facility] ibuprofen 600 mg tablet 04-08 00:00: 00 Yes [id number] 600mg Take 1 tablet by mouth every 6 (six) hours as needed for Pain (scale 4-6). [facility] ibuprofen 600 mg tablet 04-08 00:00: 00 Yes [id number] 600mg Take 1 tablet by mouth every 6 (six) hours as needed for Pain (scale 4-6). [facility] ibuprofen 600 mg tablet 04-08 00:00: 00 Yes [id number] 600mg Take 1 tablet by mouth every 6 (six) hours as needed for Pain (scale 4-6). [facility] ibuprofen 600 mg tablet 04-08 00:00: 00 Yes [id number] 600mg Take 1 tablet by mouth every 6 (six) hours as needed for Pain (scale 4-6). [facility] ibuprofen 600 mg tablet 04-08 00:00: 00 Yes [id number] 600mg Take 1 tablet by mouth every 6 (six) hours as needed for Pain (scale 4-6). [facility] ibuprofen 600 mg tablet 04-08 00:00: 00 Yes [id number] 600mg Take 1 tablet by mouth every 6 (six) hours as needed for Pain (scale 4-6). [facility] ibuprofen 600 mg tablet 04-08 00:00: 00 Yes [id number] 600mg Take 1 tablet by mouth every 6 (six) hours as needed for Pain (scale 4-6). [facility] ibuprofen 600 mg tablet 04-08 00:00: 00 Yes [id number] 600mg Take 1 tablet by mouth every 6 (six) hours as needed for Pain (scale 4-6). [facility] ibuprofen 600 mg tablet 04-08 00:00: 00 Yes [id number] 600mg Take 1 tablet by mouth every 6 (six) hours as needed for Pain (scale 4-6). [facility] ibuprofen 600 mg tablet 04-08 00:00: 00 Yes [id number] 600mg Take 1 tablet by mouth every 6 (six) hours as needed for Pain (scale 4-6). [facility] ibuprofen 600 mg tablet 04-08 00:00: 00 Yes [id number] 600mg Take 1 tablet by mouth every 6 (six) hours as needed for Pain (scale 4-6). [facility] ibuprofen 600 mg tablet 04-08 00:00: 00 Yes [id number] 600mg Take 1 tablet by mouth every 6 (six) hours as needed for Pain (scale 4-6). [facility] ibuprofen 600 mg tablet 04-08 00:00: 00 Yes [id number] 600mg Take 1 tablet by mouth every 6 (six) hours as needed for Pain (scale 4-6). [facility] Bupivicaine [place] Bupivicaine [place] 2019-03 00:00: 00 No 2.5mg [facility] Kenalog (Triamcinol one) Kenalog (Triamcinol one) 2019-03 00:00: 00 No 40mg [facility] Bupivicaine [place] Bupivicaine [place] 2019-03 00:00: 00 No 2.5mg [facility] Kenalog (Triamcinol one) Kenalog (Triamcinol one) 2019-03 00:00: 00 No 40mg [facility] Bupivicaine [place] Bupivicaine [place] 2019-03 00:00: 00 No 2.5mg [facility] Kenalog (Triamcinol one) Kenalog (Triamcinol one) 2019-03 00:00: 00 No 40mg [facility] Bupivicaine [place] Bupivicaine [place] 2019-03 00:00: 00 No 2.5mg [facility] Kenalog (Triamcinol one) Kenalog (Triamcinol one) 2019-03 00:00: 00 No 40mg [facility] Bupivicaine [place] Bupivicaine [place] 2019-03 00:00: 00 No [facility] Kenalog (Triamcinol one) Kenalog (Triamcinol one) 2019-03 00:00: 00 No 40mg [facility] Bupivicaine [place] Bupivicaine [place] 2019-03 00:00: 00 No 2.5mg [facility] Kenalog (Triamcinol one) Kenalog (Triamcinol one) 2019-03 00:00: 00 No 40mg [facility] Nitrofurant oin&Nit. Macrocryst (MACROBID) 100 mg capsule 915 00:00: 00 Yes [id number] 100mg Take 1 capsule by mouth as needed for Other (after intecourse ). [facility] Nitrofurant oin&Nit. Macrocryst (MACROBID) 100 mg capsule 0 915 00:00: 00 Yes [id number] 100mg Take 1 capsule by mouth as needed for Other (after intecourse ). [facility] Nitrofurant oin&Nit. Macrocryst (MACROBID) 100 mg capsule 2020-0 9-15 00:00: 00 Yes [id number] 100mg Take 1 capsule by mouth as needed for Other (after intecourse ). [facility] Nitrofurant oin&Nit. Macrocryst (MACROBID) 100 mg capsule 2020-0 9-15 00:00: 00 Yes [id number] 100mg Take 1 capsule by mouth as needed for Other (after intecourse ). [facility] Nitrofurant oin&Nit. Macrocryst (MACROBID) 100 mg capsule 2020-0 9-15 00:00: 00 Yes [id number] 100mg Take 1 capsule by mouth as needed for Other (after intecourse ). [facility] Nitrofurant oin&Nit. Macrocryst (MACROBID) 100 mg capsule 2020-0 9-15 00:00: 00 Yes [id number] 100mg Take 1 capsule by mouth as needed for Other (after intecourse ). [facility] Nitrofurant oin&Nit. Macrocryst (MACROBID) 100 mg capsule 2020-0 9-15 00:00: 00 Yes [id number] 100mg Take 1 capsule by mouth as needed for Other (after intecourse ). [facility] Nitrofurant oin&Nit. Macrocryst (MACROBID) 100 mg capsule 2020-0 9-15 00:00: 00 Yes [id number] 100mg Take 1 capsule by mouth as needed for Other (after intecourse ). [facility] Nitrofurant oin&Nit. Macrocryst (MACROBID) 100 mg capsule 2020-0 9-15 00:00: 00 Yes [id number] 100mg Take 1 capsule by mouth as needed for Other (after intecourse ). [facility] Nitrofurant oin&Nit. Macrocryst (MACROBID) 100 mg capsule 2020-0 9-15 00:00: 00 Yes [id number] 100mg Take 1 capsule by mouth as needed for Other (after intecourse ). [facility] Nitrofurant oin&Nit. Macrocryst (MACROBID) 100 mg capsule 2020-0 9-15 00:00: 00 Yes 100mg Take 1 capsule by mouth as needed for Other (after intecourse ). [facility] Nitrofurant oin&Nit. Macrocryst (MACROBID) 100 mg capsule 11-24 00:00: 00 Yes 100mg Take 1 capsule by mouth as needed for Other (after intecourse ). [facility] Nitrofurant oin&Nit. Macrocryst (MACROBID) 100 mg capsule 11-24 00:00: 00 Yes 100mg Take 1 capsule by mouth as needed for Other (after intecourse ). [facility] Nitrofurant oin&Nit. Macrocryst (MACROBID) 100 mg capsule 11-24 00:00: 00 Yes 100mg Take 1 capsule by mouth as needed for Other (after intecourse ). [facility] Nitrofurant oin&Nit. Macrocryst (MACROBID) 100 mg capsule 11-24 00:00: 00 Yes 100mg Take 1 capsule by mouth as needed for Other (after intecourse ). [facility] Bupivicaine [place] Bupivicaine [place] 2019-0 8-03 00:00: 00 No 5mL [facility] Kenalog (Triamcinol one) Kenalog (Triamcinol one) 2019-0 8-03 00:00: 00 No 40mg [facility] Bupivicaine [place] Bupivicaine [place] 2019-0 8-03 00:00: 00 No 5mL [facility] Kenalog (Triamcinol one) Kenalog (Triamcinol one) 2020-0 8-03 00:00: 00 No 40mg [facility] Bupivicaine [place] Bupivicaine [place] 2019-0 8-03 00:00: 00 No 5mL [facility] Kenalog (Triamcinol one) Kenalog (Triamcinol one) 2020-0 8-03 00:00: 00 No 40mg [facility] Bupivicaine [place] Bupivicaine [place] 8 00:00: 00 No 5mL [facility] Kenalog (Triamcinol one) Kenalog (Triamcinol one) 8- 00:00: 00 No 40mg [facility] Bupivicaine [place] Bupivicaine [place] - 00:00: 00 No 5mL [facility] Kenalog (Triamcinol one) Kenalog (Triamcinol one) 8 00:00: 00 No 40mg [facility] Bupivicaine [place] Bupivicaine [place] 10-12 00:00: 00 No 5mL [facility] Kenalog (Triamcinol one) Kenalog (Triamcinol one) 10-12 00:00: 00 No 40mg [facility] Meloxicam Meloxicam 10-12 00:00: 00 11-11 00:00 :00 No [facility] 1 tablet [facility] Estrace Estrace 04-24 00:00: 00 [address] [facility] as directed [facility] Estrace 0.1 MG/GM Estrace 0.1 MG/GM 04-24 00:00: 00 No Estrace 0.1 MG/GM Estrace 0.1 MG/GM Estrace 0.1 MG/GM 04-24 00:00: 00 No Estrace 0.1 MG/GM Estrace 0.1 MG/GM Estrace 0.1 MG/GM 04-24 00:00: 00 No Estrace 0.1 MG/GM Estrace 0.1 MG/GM Estrace 0.1 MG/GM 04-24 00:00: 00 No Estrace 0.1 MG/GM Estrace 0.1 MG/GM Estrace 0.1 MG/GM 04-24 00:00: 00 No Estrace 0.1 MG/GM Estrace 0.1 MG/GM Estrace 0.1 MG/GM 04-24 00:00: 00 No Estrace 0.1 MG/GM morpHINE E.R. (MS CONTIN) 30 mg SR tablet 12-06 00:00: 00 05-09 00:00 :00 No [facility] morpHINE I.R. (MSIR) 15 mg tablet 12-06 00:00: 05-09 00:00 :00 No [facility] morpHINE E.R. (MS CONTIN) 30 mg SR tablet 12-06 00:00: 05-09 00:00 :00 No [facility] morpHINE I.R. (MSIR) 15 mg tablet 12-06 00:00: 00 05-09 00:00 :00 No [facility] Robaxin-750 750 mg tablet 1 po every 6 hours prn muscle spasm Robaxin-750 750 mg tablet 1 po every 6 hours prn muscle spasm 10-14 00:00: 00 No Robaxin-75 0 750 mg tablet 1 po every 6 hours prn muscle spasm [facility] Vimovo 500 mg-20 mg tablet,imme diate and delay release 1 tab twice daily Vimovo 500 mg-20 mg tablet,imme diate and delay release 1 tab twice daily 10-14 00:00: 00 No Vimovo 500 mg-20 mg tablet,imm ediate and delay release 1 tab twice daily [facility] Robaxin-750 750 mg tablet 1 po every 6 hours prn muscle spasm Robaxin-750 750 mg tablet 1 po every 6 hours prn muscle spasm 10-14 00:00: 00 No Robaxin-75 0 750 mg tablet 1 po every 6 hours prn muscle spasm [facility] [place] 500 mg-20 mg tablet,imme diate and delay release 1 tab twice daily Vimovo 500 mg-20 mg tablet,imme diate and delay release 1 tab twice daily 10-14 00:00: 00 No [place]ovo 500 mg-20 mg tablet,imm ediate and delay release 1 tab twice daily [facility] Robaxin-750 750 mg tablet 1 po every 6 hours prn muscle spasm Robaxin-750 750 mg tablet 1 po every 6 hours prn muscle spasm 10-14 00:00: 00 No Robaxin-75 0 750 mg tablet 1 po every 6 hours prn muscle spasm [facility] [place] 500 mg-20 mg tablet,imme diate and delay release 1 tab twice daily Vimovo 500 mg-20 mg tablet,imme diate and delay release 1 tab twice daily 10-14 00:00: 00 No [place] 500 mg-20 mg tablet,imm ediate and delay release 1 tab twice daily [facility] Robaxin-750 750 mg tablet 1 po every 6 hours prn muscle spasm Robaxin-750 750 mg tablet 1 po every 6 hours prn muscle spasm 10-14 00:00: 00 No Robaxin-75 0 750 mg tablet 1 po every 6 hours prn muscle spasm [facility] [place] 500 mg-20 mg tablet,imme diate and delay release 1 tab twice daily Vimovo 500 mg-20 mg tablet,imme diate and delay release 1 tab twice daily 10-14 00:00: 00 No [place] 500 mg-20 mg tablet,imm ediate and delay release 1 tab twice daily [facility] Robaxin-750 750 mg tablet 1 po every 6 hours prn muscle spasm Robaxin-750 750 mg tablet 1 po every 6 hours prn muscle spasm 10-14 00:00: 00 No Robaxin-75 0 750 mg tablet 1 po every 6 hours prn muscle spasm [facility] [place] 500 mg-20 mg tablet,imme diate and delay release 1 tab twice daily Vimovo 500 mg-20 mg tablet,imme diate and delay release 1 tab twice daily 10-14 00:00: 00 No [place] 500 mg-20 mg tablet,imm ediate and delay release 1 tab twice daily [facility] Robaxin-750 750 mg tablet 1 po every 6 hours prn muscle spasm Robaxin-750 750 mg tablet 1 po every 6 hours prn muscle spasm 10-14 00:00: 00 No Robaxin-75 0 750 mg tablet 1 po every 6 hours prn muscle spasm [facility] [place] 500 mg-20 mg tablet,imme diate and delay release 1 tab twice daily Vimovo 500 mg-20 mg tablet,imme diate and delay release 1 tab twice daily 10-14 00:00: 00 No [place] 500 mg-20 mg tablet,imm ediate and delay release 1 tab twice daily [facility] Robaxin-750 750 mg tablet 1 po every 6 hours prn muscle spasm Robaxin-750 750 mg tablet 1 po every 6 hours prn muscle spasm 10-14 00:00: 00 No Robaxin-75 0 750 mg tablet 1 po every 6 hours prn muscle spasm [facility] [place] 500 mg-20 mg tablet,imme diate and delay release 1 tab twice daily Vimovo 500 mg-20 mg tablet,imme diate and delay release 1 tab twice daily 10-14 00:00: 00 No [place]imovo 500 mg-20 mg tablet,imm ediate and delay release 1 tab twice daily [facility] Robaxin-750 750 mg tablet 1 po every 6 hours prn muscle spasm Robaxin-750 750 mg tablet 1 po every 6 hours prn muscle spasm 10-14 00:00: 00 No Robaxin-75 0 750 mg tablet 1 po every 6 hours prn muscle spasm [facility] [place] 500 mg-20 mg tablet,imme diate and delay release 1 tab twice daily Vimovo 500 mg-20 mg tablet,imme diate and delay release 1 tab twice daily 10-14 00:00: 00 No [place] 500 mg-20 mg tablet,imm ediate and delay release 1 tab twice daily [facility] Robaxin-750 750 mg tablet 1 po every 6 hours prn muscle spasm Robaxin-750 750 mg tablet 1 po every 6 hours prn muscle spasm 10-14 00:00: 00 No Robaxin-75 0 750 mg tablet 1 po every 6 hours prn muscle spasm [facility] [place] 500 mg-20 mg tablet,imme diate and delay release 1 tab twice daily Vimovo 500 mg-20 mg tablet,imme diate and delay release 1 tab twice daily 10-14 00:00: 00 No [place]ovo 500 mg-20 mg tablet,imm ediate and delay release 1 tab twice daily [facility] Robaxin-750 750 mg tablet 1 po every 6 hours prn muscle spasm Robaxin-750 750 mg tablet 1 po every 6 hours prn muscle spasm 10-14 00:00: 00 No Robaxin-75 0 750 mg tablet 1 po every 6 hours prn muscle spasm [facility] [place] 500 mg-20 mg tablet,imme diate and delay release 1 tab twice daily Vimovo 500 mg-20 mg tablet,imme diate and delay release 1 tab twice daily 10-14 00:00: 00 No Vimovo 500 mg-20 mg tablet,imm ediate and delay release 1 tab twice daily [facility] Vicodin 5 mg-300 mg tablet 1 every 6 hours prn pain Vicodin 5 mg-300 mg tablet 1 every 6 hours prn pain 09-25 00:00: 00 No Vicodin 5 mg-300 mg tablet 1 every 6 hours prn pain [facility] Vicodin 5 mg-300 mg tablet 1 every 6 hours prn pain Vicodin 5 mg-300 mg tablet 1 every 6 hours prn pain 09-25 00:00: 00 No Vicodin 5 mg-300 mg tablet 1 every 6 hours prn pain [facility] Vicodin 5 mg-300 mg tablet 1 every 6 hours prn pain Vicodin 5 mg-300 mg tablet 1 every 6 hours prn pain 09-25 00:00: 00 No Vicodin 5 mg-300 mg tablet 1 every 6 hours prn pain [facility] Vicodin 5 mg-300 mg tablet 1 every 6 hours prn pain Vicodin 5 mg-300 mg tablet 1 every 6 hours prn pain 09-25 00:00: 00 No Vicodin 5 mg-300 mg tablet 1 every 6 hours prn pain [facility] Vicodin 5 mg-300 mg tablet 1 every 6 hours prn pain Vicodin 5 mg-300 mg tablet 1 every 6 hours prn pain 09-25 00:00: 00 No Vicodin 5 mg-300 mg tablet 1 every 6 hours prn pain [facility] Vicodin 5 mg-300 mg tablet 1 every 6 hours prn pain Vicodin 5 mg-300 mg tablet 1 every 6 hours prn pain 09-25 00:00: 00 No Vicodin 5 mg-300 mg tablet 1 every 6 hours prn pain [facility] Vicodin 5 mg-300 mg tablet 1 every 6 hours prn pain Vicodin 5 mg-300 mg tablet 1 every 6 hours prn pain 09-25 00:00: 00 No Vicodin 5 mg-300 mg tablet 1 every 6 hours prn pain [facility] Vicodin 5 mg-300 mg tablet 1 every 6 hours prn pain Vicodin 5 mg-300 mg tablet 1 every 6 hours prn pain 09-25 00:00: 00 No Vicodin 5 mg-300 mg tablet 1 every 6 hours prn pain [facility] Vicodin 5 mg-300 mg tablet 1 every 6 hours prn pain Vicodin 5 mg-300 mg tablet 1 every 6 hours prn pain 09-25 00:00: 00 No Vicodin 5 mg-300 mg tablet 1 every 6 hours prn pain [facility] Vicodin 5 mg-300 mg tablet 1 every 6 hours prn pain Vicodin 5 mg-300 mg tablet 1 every 6 hours prn pain 09-25 00:00: 00 No Vicodin 5 mg-300 mg tablet 1 every 6 hours prn pain [facility] [place] 10 mg-325 mg tablet 1-2 every 4-6 hours prn pain [place] 10 mg-325 mg tablet 1-2 every 4-6 hours prn pain 09-03 00:00: 00 No [place] 10 mg-325 mg tablet 1-2 every 4-6 hours prn pain [facility] Ciprofloxac in HCl Ciprofloxac in HCl Yes [facility] not defined [facility] Nitrofurant oin Macrocrysta l Nitrofurant oin Macrocrysta l Yes [facility] 1 capsule with food or milk [facility] Nitrofurant oin Monohyd Macro Nitrofurant oin Monohyd Macro Yes [facility] not defined [facility] Fluticasone Propionate Fluticasone Propionate Yes [facility] Sherman not defined [facility] Topiramate Topiramate Yes [facility] not defined [facility] Levofloxaci n Levofloxaci n Yes Justice Sherman not defined [facility] Cyclobenzap rine HCl Cyclobenzap rine HCl Yes Justice Sherman not defined [facility] Robaxin-750 Robaxin-750 Yes Andry quick Sherman 1 tablet [facility] Tamsulosin HCl Tamsulosin HCl Yes Justice Sherman not defined [facility] Cephalexin Cephalexin Yes Justice Sherman not defined [facility] Tizanidine HCl Tizanidine HCl Yes Justice Sherman not defined [facility] Alprazolam Alprazolam Yes Justice Sherman not defined [facility] Tramadol HCl Tramadol HCl Yes Justice Sherman not defined [facility] Clonazepam Clonazepam Yes Justice Sherman not defined [facility] Fentanyl Fentanyl Yes Justice Sherman 1 patch to skin [facility] Topiramate Topiramate No Topiramate Estradiol Estradiol No Estradiol clonazePAM clonazePAM No clonazePAM Nitrofurant oin Macrocrysta l 100 mg Nitrofurant oin Macrocrysta l 100 mg No 1{capsu le_with _food_o r_milk} QD Nitrofuran toin Macrocryst al 100 mg Meloxicam Meloxicam No Meloxicam Tamsulosin HCl Tamsulosin HCl No Tamsulosin HCl Robaxin-750 750 MG Robaxin-750 750 MG No 1{table t} 6xD Robaxin-75 0 750 MG Doxycycline Monohydrate Doxycycline Monohydrate No Doxycyclin e Monohydrat e Ibuprofen Ibuprofen No Ibuprofen Fluconazole Fluconazole No Fl uconazol e Cephalexin Cephalexin No Cephalexin traMADol HCl traMADol HCl No traMADol HCl Xarelto Xarelto No Xarelto Cyanocobala min Cyanocobala min No Cyanocobal luevano Ciprofloxac in HCl Ciprofloxac in HCl No Ciprofloxa jennifer HCl Nitrofurant oin Monohyd Macro Nitrofurant oin Monohyd Macro No Nitrofuran toin Monohyd Macro fentaNYL 75 MCG/HR fentaNYL 75 MCG/HR No 1{patch _to_ski n} fentaNYL 75 MCG/HR cyclobenzap rine cyclobenzap rine No cyclobenza brady Pantoprazol e Sodium Pantoprazol e Sodium No Pantoprazo le Sodium levoFLOXaci n levoFLOXaci n No levoFLOXac in ALPRAZolam ALPRAZolam No ALPRAZolam Cyclobenzap rine HCl Cyclobenzap rine HCl No Cyclobenza brady HCl tiZANidine HCl tiZANidine HCl No tiZANidine HCl Fluticasone Propionate Fluticasone Propionate No Fluticason e Propionate Pantoprazol e Sodium Pantoprazol e Sodium No Pantoprazo le Sodium cyclobenzap rine cyclobenzap rine No cyclobenza brady Nitrofurant oin Macrocrysta l 100 mg Nitrofurant oin Macrocrysta l 100 mg No 1{capsu le_with _food_o r_milk} QD Nitrofuran toin Macrocryst al 100 mg Tamsulosin HCl Tamsulosin HCl No Tamsulosin HCl Fluconazole Fluconazole No Fl uconazol e clonazePAM clonazePAM No clonazePAM Meloxicam Meloxicam No Meloxicam tiZANidine HCl tiZANidine HCl No tiZANidine HCl Fluticasone Propionate Fluticasone Propionate No Fluticason e Propionate levoFLOXaci n levoFLOXaci n No levoFLOXac in Robaxin-750 750 MG Robaxin-750 750 MG No 1{table t} 6xD Robaxin-75 0 750 MG Doxycycline Monohydrate Doxycycline Monohydrate No Doxycyclin e Monohydrat e ALPRAZolam ALPRAZolam No ALPRAZolam Estradiol Estradiol No Estradiol fentaNYL 75 MCG/HR fentaNYL 75 MCG/HR No 1{patch _to_ski n} fentaNYL 75 MCG/HR Topiramate Topiramate No Topiramate Ciprofloxac in HCl Ciprofloxac in HCl No Ciprofloxa jennifer HCl Nitrofurant oin Monohyd Macro Nitrofurant oin Monohyd Macro No Nitrofuran toin Monohyd Macro Cyclobenzap rine HCl Cyclobenzap rine HCl No Cyclobenza brady HCl traMADol HCl traMADol HCl No traMADol HCl Ibuprofen Ibuprofen No Ibuprofen Xarelto Xarelto No Xarelto Cephalexin Cephalexin No Cephalexin Cyanocobala min Cyanocobala min No Cyanocobal luevano Pantoprazol e Sodium Pantoprazol e Sodium No Pantoprazo le Sodium cyclobenzap rine cyclobenzap rine No cyclobenza brady Nitrofurant oin Macrocrysta l 100 mg Nitrofurant oin Macrocrysta l 100 mg No 1{capsu le_with _food_o r_milk} QD Nitrofuran toin Macrocryst al 100 mg Tamsulosin HCl Tamsulosin HCl No Tamsulosin HCl Fluconazole Fluconazole No Fl uconazol e clonazePAM clonazePAM No clonazePAM Meloxicam Meloxicam No Meloxicam tiZANidine HCl tiZANidine HCl No tiZANidine HCl Fluticasone Propionate Fluticasone Propionate No Fluticason e Propionate levoFLOXaci n levoFLOXaci n No levoFLOXac in Robaxin-750 750 MG Robaxin-750 750 MG No 1{table t} 6xD Robaxin-75 0 750 MG Doxycycline Monohydrate Doxycycline Monohydrate No Doxycyclin e Monohydrat e ALPRAZolam ALPRAZolam No ALPRAZolam Estradiol Estradiol No Estradiol fentaNYL 75 MCG/HR fentaNYL 75 MCG/HR No 1{patch _to_ski n} fentaNYL 75 MCG/HR Topiramate Topiramate No Topiramate Ciprofloxac in HCl Ciprofloxac in HCl No Ciprofloxa jennifer HCl Nitrofurant oin Monohyd Macro Nitrofurant oin Monohyd Macro No Nitrofuran toin Monohyd Macro Cyclobenzap rine HCl Cyclobenzap rine HCl No Cyclobenza brady HCl traMADol HCl traMADol HCl No traMADol HCl Ibuprofen Ibuprofen No Ibuprofen Xarelto Xarelto No Xarelto Cephalexin Cephalexin No Cephalexin Cyanocobala min Cyanocobala min No Cyanocobal luevano traMADol HCl traMADol HCl No traMADol HCl Topiramate Topiramate No Topiramate Doxycycline Monohydrate Doxycycline Monohydrate No Doxycyclin e Monohydrat e Ibuprofen Ibuprofen No Ibuprofen fentaNYL 75 MCG/HR fentaNYL 75 MCG/HR No 1{patch _to_ski n} fentaNYL 75 MCG/HR Tamsulosin HCl Tamsulosin HCl No Tamsulosin HCl Meloxicam Meloxicam No Meloxicam clonazePAM clonazePAM No clonazePAM Fluconazole Fluconazole No Fl uconazol e tiZANidine HCl tiZANidine HCl No tiZANidine HCl ALPRAZolam ALPRAZolam No ALPRAZolam Robaxin-750 750 MG Robaxin-750 750 MG No 1{table t} 6xD Robaxin-75 0 750 MG Pantoprazol e Sodium Pantoprazol e Sodium No Pantoprazo le Sodium Fluticasone Propionate Fluticasone Propionate No Fluticason e Propionate Xarelto Xarelto No Xarelto cyclobenzap rine cyclobenzap rine No cyclobenza brady Cyanocobala min Cyanocobala min No Cyanocobal luevano Estradiol Estradiol No Estradiol Alendronate Sodium Alendronate Sodium No Alendronat e Sodium Cephalexin Cephalexin No Cephalexin Nitrofurant oin Monohyd Macro Nitrofurant oin Monohyd Macro No Nitrofuran toin Monohyd Macro levoFLOXaci n levoFLOXaci n No levoFLOXac in Nitrofurant oin Macrocrysta l 100 mg Nitrofurant oin Macrocrysta l 100 mg No 1{capsu le_with _food_o r_milk} QD Nitrofuran toin Macrocryst al 100 mg Ciprofloxac in HCl Ciprofloxac in HCl No Ciprofloxa jennifer HCl Cyclobenzap rine HCl Cyclobenzap rine HCl No Cyclobenza brady HCl Topiramate Topiramate No Topiramate Estradiol Estradiol No Estradiol clonazePAM clonazePAM No clonazePAM Nitrofurant oin Macrocrysta l 100 mg Nitrofurant oin Macrocrysta l 100 mg No 1{capsu le_with _food_o r_milk} QD Nitrofuran toin Macrocryst al 100 mg Meloxicam Meloxicam No Meloxicam Tamsulosin HCl Tamsulosin HCl No Tamsulosin HCl Robaxin-750 750 MG Robaxin-750 750 MG No 1{table t} 6xD Robaxin-75 0 750 MG Doxycycline Monohydrate Doxycycline Monohydrate No Doxycyclin e Monohydrat e Ibuprofen Ibuprofen No Ibuprofen Fluconazole Fluconazole No Fl uconazol e Cephalexin Cephalexin No Cephalexin traMADol HCl traMADol HCl No traMADol HCl Xarelto Xarelto No Xarelto Cyanocobala min Cyanocobala min No Cyanocobal luevano Ciprofloxac in HCl Ciprofloxac in HCl No Ciprofloxa jennifer HCl Nitrofurant oin Monohyd Macro Nitrofurant oin Monohyd Macro No Nitrofuran toin Monohyd Macro fentaNYL 75 MCG/HR fentaNYL 75 MCG/HR No 1{patch _to_ski n} fentaNYL 75 MCG/HR cyclobenzap rine cyclobenzap rine No cyclobenza brady Pantoprazol e Sodium Pantoprazol e Sodium No Pantoprazo le Sodium levoFLOXaci n levoFLOXaci n No levoFLOXac in ALPRAZolam ALPRAZolam No ALPRAZolam Cyclobenzap rine HCl Cyclobenzap rine HCl No Cyclobenza brady HCl tiZANidine HCl tiZANidine HCl No tiZANidine HCl Fluticasone Propionate Fluticasone Propionate No Fluticason e Propionate Topiramate Topiramate No Topiramate Estradiol Estradiol No Estradiol clonazePAM clonazePAM No clonazePAM Nitrofurant oin Macrocrysta l 100 mg Nitrofurant oin Macrocrysta l 100 mg No 1{capsu le_with _food_o r_milk} QD Nitrofuran toin Macrocryst al 100 mg Meloxicam Meloxicam No Meloxicam Tamsulosin HCl Tamsulosin HCl No Tamsulosin HCl Robaxin-750 750 MG Robaxin-750 750 MG No 1{table t} 6xD Robaxin-75 0 750 MG Doxycycline Monohydrate Doxycycline Monohydrate No Doxycyclin e Monohydrat e Ibuprofen Ibuprofen No Ibuprofen Fluconazole Fluconazole No Fl uconazol e Cephalexin Cephalexin No Cephalexin traMADol HCl traMADol HCl No traMADol HCl Xarelto Xarelto No Xarelto Cyanocobala min Cyanocobala min No Cyanocobal luevano Ciprofloxac in HCl Ciprofloxac in HCl No Ciprofloxa jennifer HCl Nitrofurant oin Monohyd Macro Nitrofurant oin Monohyd Macro No Nitrofuran toin Monohyd Macro meloxicam 15 mg tablet Take 1 tablet every day by oral route as directed for 30 days. meloxicam 15 mg tablet Take 1 tablet every day by oral route as directed for 30 days. No meloxicam 15 mg tablet Take 1 tablet every day by oral route as directed for 30 days. [facility] fentaNYL 75 MCG/HR fentaNYL 75 MCG/HR No 1{patch _to_ski n} fentaNYL 75 MCG/HR methocarbam ol 500 mg tablet Take by oral route for 15 days. methocarbam ol 500 mg tablet Take by oral route for 15 days. No methocarba mol 500 mg tablet Take by oral route for 15 days. [facility] cyclobenzap rine cyclobenzap rine No cyclobenza brady metoprolol succinate ER 25 mg tablet,exte nded release 24 hr metoprolol succinate ER 25 mg tablet,exte nded release 24 hr No metoprolol succinate ER 25 mg tablet,ext ended release 24 hr [facility] Pantoprazol e Sodium Pantoprazol e Sodium No Pantoprazo le Sodium nitroglycer in 0.4 mg sublingual tablet nitroglycer in 0.4 mg sublingual tablet No nitroglyce rin 0.4 mg sublingual tablet [facility] levoFLOXaci n levoFLOXaci n No levoFLOXac in Robaxin RX by other MD Robaxin RX by other MD No Robaxin RX by other MD [facility] ALPRAZolam ALPRAZolam No ALPRAZolam tizanidine 4 mg tablet TAKE 1 TABLET BY MOUTH AT BEDTIME tizanidine 4 mg tablet TAKE 1 TABLET BY MOUTH AT BEDTIME No tizanidine 4 mg tablet TAKE 1 TABLET BY MOUTH AT BEDTIME [facility] Cyclobenzap rine HCl Cyclobenzap rine HCl No Cyclobenza brady HCl topiramate 25 mg tablet TAKE 1 TABLET BY MOUTH TWICE DAILY topiramate 25 mg tablet TAKE 1 TABLET BY MOUTH TWICE DAILY No topiramate 25 mg tablet TAKE 1 TABLET BY MOUTH TWICE DAILY [facility] tramadol 50 mg tablet Take 1 tablet every 6 hours by oral route as needed for 7 days. tramadol 50 mg tablet Take 1 tablet every 6 hours by oral route as needed for 7 days. No tramadol 50 mg tablet Take 1 tablet every 6 hours by oral route as needed for 7 days. [facility] tiZANidine HCl tiZANidine HCl No tiZANidine HCl Xarelto 10 mg tablet TAKE ONE (1) TABLET(S) BY MOUTH ONCE A DAY. Xarelto 10 mg tablet TAKE ONE (1) TABLET(S) BY MOUTH ONCE A DAY. No Xarelto 10 mg tablet TAKE ONE (1) TABLET(S) BY MOUTH ONCE A DAY. [facility] Fluticasone Propionate Fluticasone Propionate No Fluticason e Propionate albuterol sulfate 2.5 mg/3 mL (0.083 %) solution for nebulizatio n albuterol sulfate 2.5 mg/3 mL (0.083 %) solution for nebulizatio n No albuterol sulfate 2.5 mg/3 mL (0.083 %) solution for nebulizati on [facility] alendronate 70 mg tablet alendronate 70 mg tablet No alendronat e 70 mg tablet [facility] amlodipine 10 mg tablet amlodipine 10 mg tablet No amlodipine 10 mg tablet [facility] amlodipine 5 mg tablet TAKE 1 TABLET BY MOUTH EVERY DAY amlodipine 5 mg tablet TAKE 1 TABLET BY MOUTH EVERY DAY No amlodipine 5 mg tablet TAKE 1 TABLET BY MOUTH EVERY DAY [facility] aspirin 81 mg chewable tablet Chew 1 tablet twice a day by oral route as directed for 30 days. aspirin 81 mg chewable tablet Chew 1 tablet twice a day by oral route as directed for 30 days. No 1 BID aspirin 81 mg chewable tablet Chew 1 tablet twice a day by oral route as directed for 30 days. [facility] cephalexin 500 mg capsule cephalexin 500 mg capsule No cephalexin 500 mg capsule [facility] clonazepam 1 mg tablet TAKE 1 TABLET BY MOUTH THREE TIMES DAILY clonazepam 1 mg tablet TAKE 1 TABLET BY MOUTH THREE TIMES DAILY No clonazepam 1 mg tablet TAKE 1 TABLET BY MOUTH THREE TIMES DAILY [facility] cyanocobala min (vit B-12) 1,000 mcg/mL injection solution INJECT 1ML ONCE A MONTH cyanocobala min (vit B-12) 1,000 mcg/mL injection solution INJECT 1ML ONCE A MONTH No cyanocobal luevano (vit B-12) 1,000 mcg/mL injection solution INJECT 1ML ONCE A MONTH [facility] Dayvigo 5 mg tablet Dayvigo 5 mg tablet No Dayvigo 5 mg tablet [facility] doxycycline hyclate 100 mg capsule Take 1 capsule twice a day by oral route as directed for 7 days. doxycycline hyclate 100 mg capsule Take 1 capsule twice a day by oral route as directed for 7 days. No doxycyclin e hyclate 100 mg capsule Take 1 capsule twice a day by oral route as directed for 7 days. [facility] fentanyl 50 mcg/hr transdermal patch APPLY ONE PATCH TO SKIN EVERY 72 HOURS fentanyl 50 mcg/hr transdermal patch APPLY ONE PATCH TO SKIN EVERY 72 HOURS No fentanyl 50 mcg/hr transderma l patch APPLY ONE PATCH TO SKIN EVERY 72 HOURS [facility] hydrocodone 10 mg-acetamin ophen 325 mg tablet Take 1 tablet every 6 hours by oral route as needed for 7 days. hydrocodone 10 mg-acetamin ophen 325 mg tablet Take 1 tablet every 6 hours by oral route as needed for 7 days. No hydrocodon e 10 mg-acetami nophen 325 mg tablet Take 1 tablet every 6 hours by oral route as needed for 7 days. [facility] hydrocodone 5 mg-acetamin ophen 325 mg tablet hydrocodone 5 mg-acetamin ophen 325 mg tablet No hydrocodon e 5 mg-acetami nophen 325 mg tablet [facility] hydromorpho ne 4 mg tablet hydromorpho ne 4 mg tablet No hydromorph one 4 mg tablet [facility] meloxicam 15 mg tablet Take 1 tablet every day by oral route as directed for 30 days. meloxicam 15 mg tablet Take 1 tablet every day by oral route as directed for 30 days. No meloxicam 15 mg tablet Take 1 tablet every day by oral route as directed for 30 days. [facility] methocarbam ol 500 mg tablet Take by oral route for 15 days. methocarbam ol 500 mg tablet Take by oral route for 15 days. No methocarba mol 500 mg tablet Take by oral route for 15 days. [facility] metoprolol succinate ER 25 mg tablet,exte nded release 24 hr metoprolol succinate ER 25 mg tablet,exte nded release 24 hr No metoprolol succinate ER 25 mg tablet,ext ended release 24 hr [facility] nitroglycer in 0.4 mg sublingual tablet nitroglycer in 0.4 mg sublingual tablet No nitroglyce rin 0.4 mg sublingual tablet [facility] Robaxin RX by other Robaxin RX by other MD No Robaxin RX by other MD [facility] tizanidine 4 mg tablet TAKE 1 TABLET BY MOUTH AT BEDTIME tizanidine 4 mg tablet TAKE 1 TABLET BY MOUTH AT BEDTIME No tizanidine 4 mg tablet TAKE 1 TABLET BY MOUTH AT BEDTIME [facility] topiramate 25 mg tablet TAKE 1 TABLET BY MOUTH TWICE DAILY topiramate 25 mg tablet TAKE 1 TABLET BY MOUTH TWICE DAILY No topiramate 25 mg tablet TAKE 1 TABLET BY MOUTH TWICE DAILY [facility] tramadol 50 mg tablet Take 1 tablet every 6 hours by oral route as needed for 7 days. tramadol 50 mg tablet Take 1 tablet every 6 hours by oral route as needed for 7 days. No tramadol 50 mg tablet Take 1 tablet every 6 hours by oral route as needed for [address] [facility] Xarelto 10 mg tablet TAKE ONE (1) TABLET(S) BY MOUTH ONCE A DAY. Xarelto 10 mg tablet TAKE ONE (1) TABLET(S) BY MOUTH ONCE A DAY. No Xarelto 10 mg tablet TAKE ONE (1) TABLET(S) BY MOUTH ONCE A DAY. [facility] albuterol sulfate 2.5 mg/3 mL (0.083 %) solution for nebulizatio n albuterol sulfate 2.5 mg/3 mL (0.083 %) solution for nebulizatio n No albuterol sulfate 2.5 mg/3 mL (0.083 %) solution for nebulizati on [facility] alendronate 70 mg tablet alendronate 70 mg tablet No alendronat e 70 mg tablet [facility] amlodipine 10 mg tablet amlodipine 10 mg tablet No amlodipine 10 mg tablet [facility] amlodipine 5 mg tablet TAKE 1 TABLET BY MOUTH EVERY DAY amlodipine 5 mg tablet TAKE 1 TABLET BY MOUTH EVERY DAY No amlodipine 5 mg tablet TAKE 1 TABLET BY MOUTH EVERY DAY [facility] aspirin 81 mg chewable tablet Chew 1 tablet twice a day by oral route as directed for 30 days. aspirin 81 mg chewable tablet Chew 1 tablet twice a day by oral route as directed for 30 days. No 1 BID aspirin 81 mg chewable tablet Chew 1 tablet twice a day by oral route as directed for 30 days. [facility] cephalexin 500 mg capsule cephalexin 500 mg capsule No cephalexin 500 mg capsule [facility] clonazepam 1 mg tablet TAKE 1 TABLET BY MOUTH THREE TIMES DAILY clonazepam 1 mg tablet TAKE 1 TABLET BY MOUTH THREE TIMES DAILY No clonazepam 1 mg tablet TAKE 1 TABLET BY MOUTH THREE TIMES DAILY [facility] cyanocobala min (vit B-12) 1,000 mcg/mL injection solution INJECT 1ML ONCE A MONTH cyanocobala min (vit B-12) 1,000 mcg/mL injection solution INJECT 1ML ONCE A MONTH No cyanocobal luevano (vit B-12) 1,000 mcg/mL injection solution INJECT 1ML ONCE A MONTH [facility] Dayvigo 5 mg tablet Dayvigo 5 mg tablet No Dayvigo 5 mg tablet [facility] doxycycline hyclate 100 mg capsule Take 1 capsule twice a day by oral route as directed for 7 days. doxycycline hyclate 100 mg capsule Take 1 capsule twice a day by oral route as directed for 7 days. No doxycyclin e hyclate 100 mg capsule Take 1 capsule twice a day by oral route as directed for 7 days. [facility] fentanyl 50 mcg/hr transdermal patch APPLY ONE PATCH TO SKIN EVERY 72 HOURS fentanyl 50 mcg/hr transdermal patch APPLY ONE PATCH TO SKIN EVERY 72 HOURS No fentanyl 50 mcg/hr transderma l patch APPLY ONE PATCH TO SKIN EVERY 72 HOURS [facility] hydrocodone 10 mg-acetamin ophen 325 mg tablet Take 1 tablet every 6 hours by oral route as needed for 7 days. hydrocodone 10 mg-acetamin ophen 325 mg tablet Take 1 tablet every 6 hours by oral route as needed for 7 days. No hydrocodon e 10 mg-acetami nophen 325 mg tablet Take 1 tablet every 6 hours by oral route as needed for 7 days. [facility] hydrocodone 5 mg-acetamin ophen 325 mg tablet hydrocodone 5 mg-acetamin ophen 325 mg tablet No hydrocodon e 5 mg-acetami nophen 325 mg tablet [facility] hydromorpho ne 4 mg tablet hydromorpho ne 4 mg tablet No hydromorph one 4 mg tablet [facility] meloxicam 15 mg tablet Take 1 tablet every day by oral route as directed for 30 days. meloxicam 15 mg tablet Take 1 tablet every day by oral route as directed for 30 days. No meloxicam 15 mg tablet Take 1 tablet every day by oral route as directed for 30 days. [facility] methocarbam ol 500 mg tablet Take 1 tablet every 8 hours by oral route as needed for 30 days. methocarbam ol 500 mg tablet Take 1 tablet every 8 hours by oral route as needed for 30 days. No methocarba mol 500 mg tablet Take 1 tablet every 8 hours by oral route as needed for 30 days. [facility] metoprolol succinate ER 25 mg tablet,exte nded release 24 hr metoprolol succinate ER 25 mg tablet,exte nded release 24 hr No metoprolol succinate ER 25 mg tablet,ext ended release 24 hr [facility] nitroglycer in 0.4 mg sublingual tablet nitroglycer in 0.4 mg sublingual tablet No nitroglyce rin 0.4 mg sublingual tablet [facility] ofloxacin 0.3 % eye drops ofloxacin 0.3 % eye drops No ofloxacin 0.3 % eye drops [facility] Robaxin RX by other Robaxin RX by other MD No Robaxin RX by other MD [facility] tizanidine 4 mg tablet TAKE 1 TABLET BY MOUTH AT BEDTIME tizanidine 4 mg tablet TAKE 1 TABLET BY MOUTH AT BEDTIME No tizanidine 4 mg tablet TAKE 1 TABLET BY MOUTH AT BEDTIME [facility] topiramate 25 mg tablet TAKE 1 TABLET BY MOUTH TWICE DAILY topiramate 25 mg tablet TAKE 1 TABLET BY MOUTH TWICE DAILY No topiramate 25 mg tablet TAKE 1 TABLET BY MOUTH TWICE DAILY [facility] tramadol 50 mg tablet Take 1 tablet every 6 hours by oral route as needed for 7 days. tramadol 50 mg tablet Take 1 tablet every 6 hours by oral route as needed for 7 days. No tramadol 50 mg tablet Take 1 tablet every 6 hours by oral route as needed for 7 days. [facility] Xarelto 10 mg tablet TAKE ONE (1) TABLET(S) BY MOUTH ONCE A DAY. Xarelto 10 mg tablet TAKE ONE (1) TABLET(S) BY MOUTH ONCE A DAY. No Xarelto 10 mg tablet TAKE ONE (1) TABLET(S) BY MOUTH ONCE A DAY. [facility] albuterol sulfate 2.5 mg/3 mL (0.083 %) solution for nebulizatio n albuterol sulfate 2.5 mg/3 mL (0.083 %) solution for nebulizatio n No albuterol sulfate 2.5 mg/3 mL (0.083 %) solution for nebulizati on [facility] alendronate 70 mg tablet alendronate 70 mg tablet No alendronat e 70 mg tablet [facility] amlodipine 10 mg tablet amlodipine 10 mg tablet No amlodipine 10 mg tablet [facility] amlodipine 5 mg tablet TAKE 1 TABLET BY MOUTH EVERY DAY amlodipine 5 mg tablet TAKE 1 TABLET BY MOUTH EVERY DAY No amlodipine 5 mg tablet TAKE 1 TABLET BY MOUTH EVERY DAY [facility] aspirin 81 mg chewable tablet Chew 1 tablet twice a day by oral route as directed for 30 days. aspirin 81 mg chewable tablet Chew 1 tablet twice a day by oral route as directed for 30 days. No 1 BID aspirin 81 mg chewable tablet Chew 1 tablet twice a day by oral route as directed for 30 days. [facility] cephalexin 500 mg capsule cephalexin 500 mg capsule No cephalexin 500 mg capsule [facility] clonazepam 1 mg tablet TAKE 1 TABLET BY MOUTH THREE TIMES DAILY clonazepam 1 mg tablet TAKE 1 TABLET BY MOUTH THREE TIMES DAILY No clonazepam 1 mg tablet TAKE 1 TABLET BY MOUTH THREE TIMES DAILY [facility] cyanocobala min (vit B-12) 1,000 mcg/mL injection solution INJECT 1ML ONCE A MONTH cyanocobala min (vit B-12) 1,000 mcg/mL injection solution INJECT 1ML ONCE A MONTH No cyanocobal luevano (vit B-12) 1,000 mcg/mL injection solution INJECT 1ML ONCE A MONTH [facility] Dayvigo 5 mg tablet Dayvigo 5 mg tablet No Dayvigo 5 mg tablet [facility] doxycycline hyclate 100 mg capsule Take 1 capsule twice a day by oral route as directed for 7 days. doxycycline hyclate 100 mg capsule Take 1 capsule twice a day by oral route as directed for 7 days. No doxycyclin e hyclate 100 mg capsule Take 1 capsule twice a day by oral route as directed for 7 days. [facility] fentanyl 50 mcg/hr transdermal patch APPLY ONE PATCH TO SKIN EVERY 72 HOURS fentanyl 50 mcg/hr transdermal patch APPLY ONE PATCH TO SKIN EVERY 72 HOURS No fentanyl 50 mcg/hr transderma l patch APPLY ONE PATCH TO SKIN EVERY 72 HOURS [facility] hydrocodone 10 mg-acetamin ophen 325 mg tablet Take 1 tablet every 6 hours by oral route as needed for 7 days. hydrocodone 10 mg-acetamin ophen 325 mg tablet Take 1 tablet every 6 hours by oral route as needed for 7 days. No hydrocodon e 10 mg-acetami nophen 325 mg tablet Take 1 tablet every 6 hours by oral route as needed for 7 days. [facility] [facility] hydrocodone 5 mg-acetamin ophen 325 mg tablet hydrocodone 5 mg-acetamin ophen 325 mg tablet No hydrocodon e 5 mg-acetami nophen 325 mg tablet [facility] hydromorpho ne 4 mg tablet hydromorpho ne 4 mg tablet No hydromorph one 4 mg tablet [facility] meloxicam 15 mg tablet Take 1 tablet every day by oral route as directed for 30 days. meloxicam 15 mg tablet Take 1 tablet every day by oral route as directed for 30 days. No meloxicam 15 mg tablet Take 1 tablet every day by oral route as directed for 30 days. [facility] methocarbam ol 500 mg tablet Take 1 tablet every 8 hours by oral route as needed for 30 days. methocarbam ol 500 mg tablet Take 1 tablet every 8 hours by oral route as needed for 30 days. No methocarba mol 500 mg tablet Take 1 tablet every 8 hours by oral route as needed for 30 days. [facility] metoprolol succinate ER 25 mg tablet,exte nded release 24 hr metoprolol succinate ER 25 mg tablet,exte nded release 24 hr No metoprolol succinate ER 25 mg tablet,ext ended release 24 hr [facility] nitroglycer in 0.4 mg sublingual tablet nitroglycer in 0.4 mg sublingual tablet No nitroglyce rin 0.4 mg sublingual tablet [facility] ofloxacin 0.3 % eye drops ofloxacin 0.3 % eye drops No ofloxacin 0.3 % eye drops [facility] Robaxin RX by other Robaxin RX by other MD No Robaxin RX by other MD [facility] tizanidine 4 mg tablet TAKE 1 TABLET BY MOUTH AT BEDTIME tizanidine 4 mg tablet TAKE 1 TABLET BY MOUTH AT BEDTIME No tizanidine 4 mg tablet TAKE 1 TABLET BY MOUTH AT BEDTIME [facility] topiramate 25 mg tablet TAKE 1 TABLET BY MOUTH TWICE DAILY topiramate 25 mg tablet TAKE 1 TABLET BY MOUTH TWICE DAILY No topiramate 25 mg tablet TAKE 1 TABLET BY MOUTH TWICE DAILY [facility] tramadol 50 mg tablet Take 1 tablet every 6 hours by oral route as needed for 7 days. tramadol 50 mg tablet Take 1 tablet every 6 hours by oral route as needed for 7 days. No tramadol 50 mg tablet Take 1 tablet every 6 hours by oral route as needed for 7 days. [facility] Xarelto 10 mg tablet TAKE ONE (1) TABLET(S) BY MOUTH ONCE A DAY. Xarelto 10 mg tablet TAKE ONE (1) TABLET(S) BY MOUTH ONCE A DAY. No Xarelto 10 mg tablet TAKE ONE (1) TABLET(S) BY MOUTH ONCE A DAY. [facility] albuterol sulfate 2.5 mg/3 mL (0.083 %) solution for nebulizatio n albuterol sulfate 2.5 mg/3 mL (0.083 %) solution for nebulizatio n No albuterol sulfate 2.5 mg/3 mL (0.083 %) solution for nebulizati on [facility] alendronate 70 mg tablet alendronate 70 mg tablet No alendronat e 70 mg tablet [facility] amlodipine 10 mg tablet amlodipine 10 mg tablet No amlodipine 10 mg tablet [facility] amlodipine 5 mg tablet TAKE 1 TABLET BY MOUTH EVERY DAY amlodipine 5 mg tablet TAKE 1 TABLET BY MOUTH EVERY DAY No amlodipine 5 mg tablet TAKE 1 TABLET BY MOUTH EVERY DAY [facility] aspirin 81 mg chewable tablet Chew 1 tablet twice a day by oral route as directed for 30 days. aspirin 81 mg chewable tablet Chew 1 tablet twice a day by oral route as directed for 30 days. No 1 BID aspirin 81 mg chewable tablet Chew 1 tablet twice a day by oral route as directed for 30 days. [facility] cephalexin 500 mg capsule cephalexin 500 mg capsule No cephalexin 500 mg capsule [facility] clonazepam 1 mg tablet TAKE 1 TABLET BY MOUTH THREE TIMES DAILY clonazepam 1 mg tablet TAKE 1 TABLET BY MOUTH THREE TIMES DAILY No clonazepam 1 mg tablet TAKE 1 TABLET BY MOUTH THREE TIMES DAILY [facility] cyanocobala min (vit B-12) 1,000 mcg/mL injection solution INJECT 1ML ONCE A MONTH cyanocobala min (vit B-12) 1,000 mcg/mL injection solution INJECT 1ML ONCE A MONTH No cyanocobal luevano (vit B-12) 1,000 mcg/mL injection solution INJECT 1ML ONCE A MONTH [facility] Dayvigo 5 mg tablet Dayvigo 5 mg tablet No Dayvigo 5 mg tablet [facility] doxycycline hyclate 100 mg capsule Take 1 capsule twice a day by oral route as directed for 7 days. doxycycline hyclate 100 mg capsule Take 1 capsule twice a day by oral route as directed for 7 days. No doxycyclin e hyclate 100 mg capsule Take 1 capsule twice a day by oral route as directed for 7 days. [facility] fentanyl 50 mcg/hr transdermal patch APPLY ONE PATCH TO SKIN EVERY 72 HOURS fentanyl 50 mcg/hr transdermal patch APPLY ONE PATCH TO SKIN EVERY 72 HOURS No fentanyl 50 mcg/hr transderma l patch APPLY ONE PATCH TO SKIN EVERY 72 HOURS [facility] hydrocodone 10 mg-acetamin ophen 325 mg tablet Take 1 tablet every 6 hours by oral route as needed for 7 days. hydrocodone 10 mg-acetamin ophen 325 mg tablet Take 1 tablet every 6 hours by oral route as needed for 7 days. No hydrocodon e 10 mg-acetami nophen 325 mg tablet Take 1 tablet every 6 hours by oral route as needed for 7 days. [facility] hydrocodone 5 mg-acetamin ophen 325 mg tablet hydrocodone 5 mg-acetamin ophen 325 mg tablet No hydrocodon e 5 mg-acetami nophen 325 mg tablet [facility] hydromorpho ne 4 mg tablet hydromorpho ne 4 mg tablet No hydromorph one 4 mg tablet [facility] levofloxaci n 500 mg tablet levofloxaci n 500 mg tablet No levofloxac in 500 mg tablet [facility] meloxicam 15 mg tablet Take 1 tablet(s) every day by oral route as directed for 30 days. meloxicam 15 mg tablet Take 1 tablet(s) every day by oral route as directed for 30 days. No meloxicam 15 mg tablet Take 1 tablet(s) every day by oral route as directed for 30 days. [facility] methocarbam ol 500 mg tablet Take 1 tablet every 8 hours by oral route as needed for 30 days. methocarbam ol 500 mg tablet Take 1 tablet every 8 hours by oral route as needed for 30 days. No methocarba mol 500 mg tablet Take 1 tablet every 8 hours by oral route as needed for 30 days. [facility] metoprolol succinate ER 25 mg tablet,exte nded release 24 hr metoprolol succinate ER 25 mg tablet,exte nded release 24 hr No metoprolol succinate ER 25 mg tablet,ext ended release 24 hr [facility] nitroglycer in 0.4 mg sublingual tablet nitroglycer in 0.4 mg sublingual tablet No nitroglyce rin 0.4 mg sublingual tablet [facility] ofloxacin 0.3 % eye drops ofloxacin 0.3 % eye drops No ofloxacin 0.3 % eye drops [facility] Robaxin RX by other Robaxin RX by other MD No [facility]in [facility] tizanidine 4 mg tablet TAKE 1 TABLET BY MOUTH AT BEDTIME tizanidine 4 mg tablet TAKE 1 TABLET BY MOUTH AT BEDTIME No tizanidine 4 mg tablet TAKE 1 TABLET BY MOUTH AT BEDTIME [facility] topiramate 25 mg tablet TAKE 1 TABLET BY MOUTH TWICE DAILY topiramate 25 mg tablet TAKE 1 TABLET BY MOUTH TWICE DAILY No topiramate 25 mg tablet TAKE 1 TABLET BY MOUTH TWICE DAILY [facility] tramadol 50 mg tablet Take 1 tablet every 6 hours by oral route as needed for 7 days. tramadol 50 mg tablet Take 1 tablet every 6 hours by oral route as needed for 7 days. No tramadol 50 mg tablet Take 1 tablet every 6 hours by oral route as needed for 7 days. [facility] Xarelto 10 mg tablet TAKE ONE (1) TABLET(S) BY MOUTH ONCE A DAY. Xarelto 10 mg tablet TAKE ONE (1) TABLET(S) BY MOUTH ONCE A DAY. No Xarelto 10 mg tablet TAKE ONE (1) TABLET(S) BY MOUTH ONCE A DAY. [facility] albuterol sulfate 2.5 mg/3 mL (0.083 %) solution for nebulizatio n albuterol sulfate 2.5 mg/3 mL (0.083 %) solution for nebulizatio n No albuterol sulfate 2.5 mg/3 mL (0.083 %) solution for nebulizati on [facility] alendronate 70 mg tablet alendronate 70 mg tablet No alendronat e 70 mg tablet [facility] amlodipine 10 mg tablet amlodipine 10 mg tablet No amlodipine 10 mg tablet [facility] amlodipine 5 mg tablet TAKE 1 TABLET BY MOUTH EVERY DAY amlodipine 5 mg tablet TAKE 1 TABLET BY MOUTH EVERY DAY No amlodipine 5 mg tablet TAKE 1 TABLET BY MOUTH EVERY DAY [facility] aspirin 81 mg chewable tablet Chew 1 tablet twice a day by oral route as directed for 30 days. aspirin 81 mg chewable tablet Chew 1 tablet twice a day by oral route as directed for 30 days. No 1 BID aspirin 81 mg chewable tablet Chew 1 tablet twice a day by oral route as directed for 30 days. [facility] cephalexin 500 mg capsule cephalexin 500 mg capsule No cephalexin 500 mg capsule [facility] clonazepam 1 mg tablet TAKE 1 TABLET BY MOUTH THREE TIMES DAILY clonazepam 1 mg tablet TAKE 1 TABLET BY MOUTH THREE TIMES DAILY No clonazepam 1 mg tablet TAKE 1 TABLET BY MOUTH THREE TIMES DAILY [facility] cyanocobala min (vit B-12) 1,000 mcg/mL injection solution INJECT 1ML ONCE A MONTH cyanocobala min (vit B-12) 1,000 mcg/mL injection solution INJECT 1ML ONCE A MONTH No cyanocobal luevano (vit B-12) 1,000 mcg/mL injection solution INJECT 1ML ONCE A MONTH [facility] Dayvigo 5 mg tablet Dayvigo 5 mg tablet No Dayvigo 5 mg tablet [facility] doxycycline hyclate 100 mg capsule Take 1 capsule twice a day by oral route as directed for 7 days. doxycycline hyclate 100 mg capsule Take 1 capsule twice a day by oral route as directed for 7 days. No doxycyclin e hyclate 100 mg capsule Take 1 capsule twice a day by oral route as directed for 7 days. [facility] fentanyl 50 mcg/hr transdermal patch APPLY ONE PATCH TO SKIN EVERY 72 HOURS fentanyl 50 mcg/hr transdermal patch APPLY ONE PATCH TO SKIN EVERY 72 HOURS No fentanyl 50 mcg/hr transderma l patch APPLY ONE PATCH TO SKIN EVERY 72 HOURS [facility] hydrocodone 10 mg-acetamin ophen 325 mg tablet Take 1 tablet every 6 hours by oral route as needed for 7 days. hydrocodone 10 mg-acetamin ophen 325 mg tablet Take 1 tablet every 6 hours by oral route as needed for 7 days. No hydrocodon e 10 mg-acetami nophen 325 mg tablet Take 1 tablet every 6 hours by oral route as needed for 7 days. [facility] hydrocodone 5 mg-acetamin ophen 325 mg tablet hydrocodone 5 mg-acetamin ophen 325 mg tablet No hydrocodon e 5 mg-acetami nophen 325 mg tablet [facility] hydromorpho ne 4 mg tablet hydromorpho ne 4 mg tablet No hydromorph one 4 mg tablet [facility] levofloxaci n 500 mg tablet levofloxaci n 500 mg tablet No levofloxac in 500 mg tablet [facility] meloxicam 15 mg tablet Take 1 tablet(s) every day by oral route as directed for 30 days. meloxicam 15 mg tablet Take 1 tablet(s) every day by oral route as directed for 30 days. No meloxicam 15 mg tablet Take 1 tablet(s) every day by oral route as directed for 30 days. [facility] methocarbam ol 500 mg tablet Take 1 tablet every 8 hours by oral route as needed for 30 days. methocarbam ol 500 mg tablet Take 1 tablet every 8 hours by oral route as needed for 30 days. No methocarba mol 500 mg tablet Take 1 tablet every 8 hours by oral route as needed for 30 days. [facility] metoprolol succinate ER 25 mg tablet,exte nded release 24 hr metoprolol succinate ER 25 mg tablet,exte nded release 24 hr No metoprolol succinate ER 25 mg tablet,ext ended release 24 hr [facility] nitroglycer in 0.4 mg sublingual tablet nitroglycer in 0.4 mg sublingual tablet No nitroglyce rin 0.4 mg sublingual tablet [facility] ofloxacin 0.3 % eye drops ofloxacin 0.3 % eye drops No ofloxacin 0.3 % eye drops [facility] Robaxin RX by other Robaxin RX by other No Robaxin RX by other MD [facility] tizanidine 4 mg tablet TAKE 1 TABLET BY MOUTH AT BEDTIME tizanidine 4 mg tablet TAKE 1 TABLET BY MOUTH AT BEDTIME No tizanidine 4 mg tablet TAKE 1 TABLET BY MOUTH AT BEDTIME [facility] Robaxin RX by other Robaxin RX by other No [facility]axin RX by other MD [facility] topiramate 25 mg tablet TAKE 1 TABLET BY MOUTH TWICE DAILY topiramate 25 mg tablet TAKE 1 TABLET BY MOUTH TWICE DAILY No topiramate 25 mg tablet TAKE 1 TABLET BY MOUTH TWICE DAILY [facility] tramadol 50 mg tablet Take 1 tablet every 6 hours by oral route as needed for 7 days. tramadol 50 mg tablet Take 1 tablet every 6 hours by oral route as needed for 7 days. No tramadol 50 mg tablet Take 1 tablet every 6 hours by oral route as needed for 7 days. [facility] Xarelto 10 mg tablet TAKE ONE (1) TABLET(S) BY MOUTH ONCE A DAY. Xarelto 10 mg tablet TAKE ONE (1) TABLET(S) BY MOUTH ONCE A DAY. No Xarelto 10 mg tablet TAKE ONE (1) TABLET(S) BY MOUTH ONCE A DAY. [facility] Robaxin 500 mg tablet 1 tid Robaxin 500 mg tablet 1 tid No Robaxin 500 mg tablet 1 tid [facility] albuterol sulfate 2.5 mg/3 mL (0.083 %) solution for nebulizatio n albuterol sulfate 2.5 mg/3 mL (0.083 %) solution for nebulizatio n No albuterol sulfate 2.5 mg/3 mL (0.083 %) solution for nebulizati on [facility] albuterol sulfate HFA 90 mcg/actuati on aerosol inhaler albuterol sulfate HFA 90 mcg/actuati on aerosol inhaler No albuterol sulfate HFA 90 mcg/actuat ion aerosol inhaler [facility] alendronate 70 mg tablet alendronate 70 mg tablet No alendronat e 70 mg tablet [facility] amlodipine 10 mg tablet amlodipine 10 mg tablet No amlodipine 10 mg tablet [facility] amlodipine 5 mg tablet TAKE 1 TABLET BY MOUTH EVERY DAY amlodipine 5 mg tablet TAKE 1 TABLET BY MOUTH EVERY DAY No amlodipine 5 mg tablet TAKE 1 TABLET BY MOUTH EVERY DAY [facility] aspirin 81 mg chewable tablet Chew 1 tablet twice a day by oral route as directed for 30 days. aspirin 81 mg chewable tablet Chew 1 tablet twice a day by oral route as directed for 30 days. No 1 BID aspirin 81 mg chewable tablet Chew 1 tablet twice a day by oral route as directed for 30 days. [facility] cephalexin 500 mg capsule cephalexin 500 mg capsule No cephalexin 500 mg capsule [facility] clonazepam 1 mg tablet TAKE 1 TABLET BY MOUTH THREE TIMES DAILY clonazepam 1 mg tablet TAKE 1 TABLET BY MOUTH THREE TIMES DAILY No clonazepam 1 mg tablet TAKE 1 TABLET BY MOUTH THREE TIMES DAILY [facility] cyanocobala min (vit B-12) 1,000 mcg/mL injection solution INJECT 1ML ONCE A MONTH cyanocobala min (vit B-12) 1,000 mcg/mL injection solution INJECT 1ML ONCE A MONTH No cyanocobal luevano (vit B-12) 1,000 mcg/mL injection solution INJECT 1ML ONCE A MONTH [facility] Dayvigo 5 mg tablet Dayvigo 5 mg tablet No Dayvigo 5 mg tablet [facility] doxycycline hyclate 100 mg capsule Take 1 capsule twice a day by oral route as directed for 7 days. doxycycline hyclate 100 mg capsule Take 1 capsule twice a day by oral route as directed for 7 days. No doxycyclin e hyclate 100 mg capsule Take 1 capsule twice a day by oral route as directed for 7 days. [facility] fentanyl 50 mcg/hr transdermal patch APPLY ONE PATCH TO SKIN EVERY 72 HOURS fentanyl 50 mcg/hr transdermal patch APPLY ONE PATCH TO SKIN EVERY 72 HOURS No fentanyl 50 mcg/hr transderma l patch APPLY ONE PATCH TO SKIN EVERY 72 HOURS [facility] hydrocodone 10 mg-acetamin ophen 325 mg tablet Take 1 tablet every 6 hours by oral route as needed for 7 days. hydrocodone 10 mg-acetamin ophen 325 mg tablet Take 1 tablet every 6 hours by oral route as needed for 7 days. No hydrocodon e 10 mg-acetami nophen 325 mg tablet Take 1 tablet every 6 hours by oral route as needed for 7 days. [facility] hydrocodone 5 mg-acetamin ophen 325 mg tablet hydrocodone 5 mg-acetamin ophen 325 mg tablet No hydrocodon e 5 mg-acetami nophen 325 mg tablet [facility] hydromorpho ne 4 mg tablet hydromorpho ne 4 mg tablet No hydromorph one 4 mg tablet [facility] levofloxaci n 500 mg tablet levofloxaci n 500 mg tablet No levofloxac in 500 mg tablet [facility] meloxicam 15 mg tablet Take 1 tablet(s) every day by oral route as directed for 30 days. meloxicam 15 mg tablet Take 1 tablet(s) every day by oral route as directed for 30 days. No meloxicam 15 mg tablet Take 1 tablet(s) every day by oral route as directed for 30 days. [facility] methocarbam ol 500 mg tablet Take 1 tablet every 8 hours by oral route as needed for 30 days. methocarbam ol 500 mg tablet Take 1 tablet every 8 hours by oral route as needed for 30 days. No 1 Q8H methocarba mol 500 mg tablet Take 1 tablet every 8 hours by oral route as needed for 30 days. [facility] metoprolol succinate ER 25 mg tablet,exte nded release 24 hr metoprolol succinate ER 25 mg tablet,exte nded release 24 hr No metoprolol succinate ER 25 mg tablet,ext ended release 24 hr [facility] nitroglycer in 0.4 mg sublingual tablet nitroglycer in 0.4 mg sublingual tablet No nitroglyce rin 0.4 mg sublingual tablet [facility] ofloxacin 0.3 % eye drops ofloxacin 0.3 % eye drops No ofloxacin 0.3 % eye drops [facility] Robaxin RX by other Robaxin RX by other MD No Robaxin RX by other [facility] tizanidine 4 mg tablet TAKE 1 TABLET BY MOUTH AT BEDTIME tizanidine 4 mg tablet TAKE 1 TABLET BY MOUTH AT BEDTIME No tizanidine 4 mg tablet TAKE 1 TABLET BY MOUTH AT BEDTIME [facility] topiramate 25 mg tablet TAKE 1 TABLET BY MOUTH TWICE DAILY topiramate 25 mg tablet TAKE 1 TABLET BY MOUTH TWICE DAILY No topiramate 25 mg tablet TAKE 1 TABLET BY MOUTH TWICE DAILY [facility] tramadol 50 mg tablet Take 1 tablet every 6 hours by oral route as needed for 7 days. tramadol 50 mg tablet Take 1 tablet every 6 hours by oral route as needed for 7 days. No tramadol 50 mg tablet Take 1 tablet every 6 hours by oral route as needed for 7 days. [facility] Xarelto 10 mg tablet TAKE ONE (1) TABLET(S) BY MOUTH ONCE A DAY. Xarelto 10 mg tablet TAKE ONE (1) TABLET(S) BY MOUTH ONCE A DAY. No Xarelto 10 mg tablet TAKE ONE (1) TABLET(S) BY MOUTH ONCE A DAY. [facility] albuterol sulfate 2.5 mg/3 mL (0.083 %) solution for nebulizatio n albuterol sulfate 2.5 mg/3 mL (0.083 %) solution for nebulizatio n No albuterol sulfate 2.5 mg/3 mL (0.083 %) solution for nebulizati on [facility] albuterol sulfate HFA 90 mcg/actuati on aerosol inhaler albuterol sulfate HFA 90 mcg/actuati on aerosol inhaler No albuterol sulfate HFA 90 mcg/actuat ion aerosol inhaler [facility] alendronate 70 mg tablet alendronate 70 mg tablet No alendronat e 70 mg tablet [facility] amlodipine 10 mg tablet amlodipine 10 mg tablet No amlodipine 10 mg tablet [facility] amlodipine 5 mg tablet TAKE 1 TABLET BY MOUTH EVERY DAY amlodipine 5 mg tablet TAKE 1 TABLET BY MOUTH EVERY DAY No amlodipine 5 mg tablet TAKE 1 TABLET BY MOUTH EVERY DAY [facility] aspirin 81 mg chewable tablet Chew 1 tablet twice a day by oral route as directed for 30 days. aspirin 81 mg chewable tablet Chew 1 tablet twice a day by oral route as directed for 30 days. No 1 BID aspirin 81 mg chewable tablet Chew 1 tablet twice a day by oral route as directed for 30 days. [facility] cephalexin 500 mg capsule cephalexin 500 mg capsule No cephalexin 500 mg capsule [facility] clonazepam 1 mg tablet TAKE 1 TABLET BY MOUTH THREE TIMES DAILY clonazepam 1 mg tablet TAKE 1 TABLET BY MOUTH THREE TIMES DAILY No clonazepam 1 mg tablet TAKE 1 TABLET BY MOUTH THREE TIMES DAILY [facility] cyanocobala min (vit B-12) 1,000 mcg/mL injection solution INJECT 1ML ONCE A MONTH cyanocobala min (vit B-12) 1,000 mcg/mL injection solution INJECT 1ML ONCE A MONTH No cyanocobal luevano (vit B-12) 1,000 mcg/mL injection solution INJECT 1ML ONCE A MONTH [facility] Dayvigo 5 mg tablet Dayvigo 5 mg tablet No Dayvigo 5 mg tablet [facility] doxycycline hyclate 100 mg capsule Take 1 capsule twice a day by oral route as directed for 7 days. doxycycline hyclate 100 mg capsule Take 1 capsule twice a day by oral route as directed for 7 days. No doxycyclin e hyclate 100 mg capsule Take 1 capsule twice a day by oral route as directed for 7 days. [facility] fentanyl 50 mcg/hr transdermal patch APPLY ONE PATCH TO SKIN EVERY 72 HOURS fentanyl 50 mcg/hr transdermal patch APPLY ONE PATCH TO SKIN EVERY 72 HOURS No fentanyl 50 mcg/hr transderma l patch APPLY ONE PATCH TO SKIN EVERY 72 HOURS [facility] hydrocodone 10 mg-acetamin ophen 325 mg tablet Take 1 tablet every 6 hours by oral route as needed for 7 days. hydrocodone 10 mg-acetamin ophen 325 mg tablet Take 1 tablet every 6 hours by oral route as needed for 7 days. No hydrocodon e 10 mg-acetami nophen 325 mg tablet Take 1 tablet every 6 hours by oral route as needed for 7 days. [facility] hydrocodone 5 mg-acetamin ophen 325 mg tablet hydrocodone 5 mg-acetamin ophen 325 mg tablet No hydrocodon e 5 mg-acetami nophen 325 mg tablet [facility] hydromorpho ne 4 mg tablet hydromorpho ne 4 mg tablet No hydromorph one 4 mg tablet [facility] levofloxaci n 500 mg tablet levofloxaci n 500 mg tablet No levofloxac in 500 mg tablet [facility] meloxicam 15 mg tablet Take 1 tablet(s) every day by oral route as directed for 30 days. meloxicam 15 mg tablet Take 1 tablet(s) every day by oral route as directed for 30 days. No meloxicam 15 mg tablet Take 1 tablet(s) every day by oral route as directed for 30 days. [facility] methocarbam ol 500 mg tablet Take 1 tablet every 8 hours by oral route as needed for 30 days. methocarbam ol 500 mg tablet Take 1 tablet every 8 hours by oral route as needed for 30 days. No 1 Q8H methocarba mol 500 mg tablet Take 1 tablet every 8 hours by oral route as needed for 30 days. [facility] metoprolol succinate ER 25 mg tablet,exte nded release 24 hr metoprolol succinate ER 25 mg tablet,exte nded release 24 hr No metoprolol succinate ER 25 mg tablet,ext ended release 24 hr [facility] nitroglycer in 0.4 mg sublingual tablet nitroglycer in 0.4 mg sublingual tablet No nitroglyce rin 0.4 mg sublingual tablet [facility] ofloxacin 0.3 % eye drops ofloxacin 0.3 % eye drops No ofloxacin 0.3 % eye drops [facility] Robaxin RX by other Robaxin RX by other MD No Robaxin RX by other MD [facility] tizanidine 4 mg tablet TAKE 1 TABLET BY MOUTH AT BEDTIME tizanidine 4 mg tablet TAKE 1 TABLET BY MOUTH AT BEDTIME No tizanidine 4 mg tablet TAKE 1 TABLET BY MOUTH AT BEDTIME [facility] topiramate 25 mg tablet TAKE 1 TABLET BY MOUTH TWICE DAILY topiramate 25 mg tablet TAKE 1 TABLET BY MOUTH TWICE DAILY No topiramate 25 mg tablet TAKE 1 TABLET BY MOUTH TWICE DAILY [facility] tramadol 50 mg tablet Take 1 tablet every 6 hours by oral route as needed for 7 days. tramadol 50 mg tablet Take 1 tablet every 6 hours by oral route as needed for 7 days. No tramadol 50 mg tablet Take 1 tablet every 6 hours by oral route as needed for 7 days. [facility] Xarelto 10 mg tablet TAKE ONE (1) TABLET(S) BY MOUTH ONCE A DAY. Xarelto 10 mg tablet TAKE ONE (1) TABLET(S) BY MOUTH ONCE A DAY. No Xarelto 10 mg tablet TAKE ONE (1) TABLET(S) BY MOUTH ONCE A DAY. [facility] albuterol sulfate 2.5 mg/3 mL (0.083 %) solution for nebulizatio n albuterol sulfate 2.5 mg/3 mL (0.083 %) solution for nebulizatio n No albuterol sulfate 2.5 mg/3 mL (0.083 %) solution for nebulizati on [facility] alendronate 70 mg tablet alendronate 70 mg tablet No alendronat e 70 mg tablet [facility] amlodipine 10 mg tablet amlodipine 10 mg tablet No amlodipine 10 mg tablet [facility] amlodipine 5 mg tablet TAKE 1 TABLET BY MOUTH EVERY DAY amlodipine 5 mg tablet TAKE 1 TABLET BY MOUTH EVERY DAY No amlodipine 5 mg tablet TAKE 1 TABLET BY MOUTH EVERY DAY [facility] aspirin 81 mg chewable tablet Chew 1 tablet twice a day by oral route as directed for 30 days. aspirin 81 mg chewable tablet Chew 1 tablet twice a day by oral route as directed for 30 days. No 1 BID aspirin 81 mg chewable tablet Chew 1 tablet twice a day by oral route as directed for 30 days. [facility] cephalexin 500 mg capsule cephalexin 500 mg capsule No cephalexin 500 mg capsule [facility] clonazepam 1 mg tablet TAKE 1 TABLET BY MOUTH THREE TIMES DAILY clonazepam 1 mg tablet TAKE 1 TABLET BY MOUTH THREE TIMES DAILY No clonazepam 1 mg tablet TAKE 1 TABLET BY MOUTH THREE TIMES DAILY [facility] cyanocobala min (vit B-12) 1,000 mcg/mL injection solution INJECT 1ML ONCE A MONTH cyanocobala min (vit B-12) 1,000 mcg/mL injection solution INJECT 1ML ONCE A MONTH No cyanocobal luevano (vit B-12) 1,000 mcg/mL injection solution INJECT 1ML ONCE A MONTH [facility] Dayvigo 5 mg tablet Dayvigo 5 mg tablet No Dayvigo 5 mg tablet [facility] doxycycline hyclate 100 mg capsule Take 1 capsule twice a day by oral route as directed for 7 days. doxycycline hyclate 100 mg capsule Take 1 capsule twice a day by oral route as directed for 7 days. No doxycyclin e hyclate 100 mg capsule Take 1 capsule twice a day by oral route as directed for 7 days. [facility] fentanyl 50 mcg/hr transdermal patch APPLY ONE PATCH TO SKIN EVERY 72 HOURS fentanyl 50 mcg/hr transdermal patch APPLY ONE PATCH TO SKIN EVERY 72 HOURS No fentanyl 50 mcg/hr transderma l patch APPLY ONE PATCH TO SKIN EVERY 72 HOURS [facility] hydrocodone 10 mg-acetamin ophen 325 mg tablet Take 1 tablet every 6 hours by oral route as needed for 7 days. hydrocodone 10 mg-acetamin ophen 325 mg tablet Take 1 tablet every 6 hours by oral route as needed for 7 days. No hydrocodon e 10 mg-acetami nophen 325 mg tablet Take 1 tablet every 6 hours by oral route as needed for 7 days. [facility] hydromorpho ne 4 mg tablet hydromorpho ne 4 mg tablet No hydromorph one 4 mg tablet [facility] meloxicam 15 mg tablet Take 1 tablet every day by oral route as directed for 30 days. meloxicam 15 mg tablet Take 1 tablet every day by oral route as directed for 30 days. No meloxicam 15 mg tablet Take 1 tablet every day by oral route as directed for 30 days. [facility] methocarbam ol 500 mg tablet Take by oral route for 15 days. methocarbam ol 500 mg tablet Take by oral route for 15 days. No methocarba mol 500 mg tablet Take by oral route for 15 days. [facility] metoprolol succinate ER 25 mg tablet,exte nded release 24 hr metoprolol succinate ER 25 mg tablet,exte nded release 24 hr No metoprolol succinate ER 25 mg tablet,ext ended release 24 hr [facility] nitroglycer in 0.4 mg sublingual tablet nitroglycer in 0.4 mg sublingual tablet No nitroglyce rin 0.4 mg sublingual tablet [facility] Robaxin RX by other Robaxin RX by other MD No Robaxin RX by other MD [facility] tizan[facility] 4 mg tablet TAKE 1 TABLET BY MOUTH AT BEDTIME tizanidine 4 mg tablet TAKE 1 TABLET BY MOUTH AT BEDTIME No tizanidine 4 mg tablet TAKE 1 TABLET BY MOUTH AT BEDTIME [facility] topiramate 25 mg tablet TAKE 1 TABLET BY MOUTH TWICE DAILY topiramate 25 mg tablet TAKE 1 TABLET BY MOUTH TWICE DAILY No topiramate 25 mg tablet TAKE 1 TABLET BY MOUTH TWICE DAILY [facility] tramadol 50 mg tablet Take 1 tablet every 6 hours by oral route as needed for 7 days. tramadol 50 mg tablet Take 1 tablet every 6 hours by oral route as needed for 7 days. No tramadol 50 mg tablet Take 1 tablet every 6 hours by oral route as needed for 7 days. [facility] Xarelto 10 mg tablet TAKE ONE (1) TABLET(S) BY MOUTH ONCE A DAY. Xarelto 10 mg tablet TAKE ONE (1) TABLET(S) BY MOUTH ONCE A DAY. No Xarelto 10 mg tablet TAKE ONE (1) TABLET(S) BY MOUTH ONCE A DAY. [facility] albuterol sulfate 2.5 mg/3 mL (0.083 %) solution for nebulizatio n albuterol sulfate 2.5 mg/3 mL (0.083 %) solution for nebulizatio n No albuterol sulfate 2.5 mg/3 mL (0.083 %) solution for nebulizati on [facility] alendronate 70 mg tablet alendronate 70 mg tablet No alendronat e 70 mg tablet [facility] amlodipine 10 mg tablet amlodipine 10 mg tablet No amlodipine 10 mg tablet [facility] amlodipine 5 mg tablet TAKE 1 TABLET BY MOUTH EVERY DAY amlodipine 5 mg tablet TAKE 1 TABLET BY MOUTH EVERY DAY No amlodipine 5 mg tablet TAKE 1 TABLET BY MOUTH EVERY DAY [facility] aspirin 81 mg chewable tablet Chew 1 tablet twice a day by oral route as directed for 30 days. aspirin 81 mg chewable tablet Chew 1 tablet twice a day by oral route as directed for 30 days. No 1 BID aspirin 81 mg chewable tablet Chew 1 tablet twice a day by oral route as directed for 30 days. [facility] cephalexin 500 mg capsule cephalexin 500 mg capsule No cephalexin 500 mg capsule [facility] clonazepam 1 mg tablet TAKE 1 TABLET BY MOUTH THREE TIMES DAILY clonazepam 1 mg tablet TAKE 1 TABLET BY MOUTH THREE TIMES DAILY No clonazepam 1 mg tablet TAKE 1 TABLET BY MOUTH THREE TIMES DAILY [facility] cyanocobala min (vit B-12) 1,000 mcg/mL injection solution INJECT 1ML ONCE A MONTH cyanocobala min (vit B-12) 1,000 mcg/mL injection solution INJECT 1ML ONCE A MONTH No cyanocobal luevano (vit B-12) 1,000 mcg/mL injection solution INJECT 1ML ONCE A MONTH [facility] Dayvigo 5 mg tablet Dayvigo 5 mg tablet No Dayvigo 5 mg tablet [facility] doxycycline hyclate 100 mg capsule Take 1 capsule twice a day by oral route as directed for 7 days. doxycycline hyclate 100 mg capsule Take 1 capsule twice a day by oral route as directed for 7 days. No doxycyclin e hyclate 100 mg capsule Take 1 capsule twice a day by oral route as directed for 7 days. [facility] fentanyl 50 mcg/hr transdermal patch APPLY ONE PATCH TO SKIN EVERY 72 HOURS fentanyl 50 mcg/hr transdermal patch APPLY ONE PATCH TO SKIN EVERY 72 HOURS No fentanyl 50 mcg/hr transderma l patch APPLY ONE PATCH TO SKIN EVERY 72 HOURS [facility] hydrocodone 10 mg-acetamin ophen 325 mg tablet Take 1 tablet every 6 hours by oral route as needed for 7 days. hydrocodone 10 mg-acetamin ophen 325 mg tablet Take 1 tablet every 6 hours by oral route as needed for 7 days. No hydrocodon e 10 mg-acetami nophen 325 mg tablet Take 1 tablet every 6 hours by oral route as needed for 7 days. [facility] hydrocodone 5 mg-acetamin ophen 325 mg tablet hydrocodone 5 mg-acetamin ophen 325 mg tablet No hydrocodon e 5 mg-acetami nophen 325 mg tablet [facility] hydromorpho ne 4 mg tablet hydromorpho ne 4 mg tablet No hydromorph one 4 mg tablet [facility] Vital Signs Vital Name Observation Time Observation Value Comments S ource Height 2022-06-14 00:00:00 68 [in_i] [facility] BMI (Body Mass Index) 2022-06-14 00:00:00 25.8 kg/m2 [facility] Body Weight 2022-06-14 00:00:00 170 [lb_av] [facility] Height 2022-04-28 00:00:00 68 [in_i] [facility] BMI (Body Mass Index) 2022-04-28 00:00:00 25.8 kg/m2 [facility] Body Weight 2022-04-28 00:00:00 170 [lb_av] [facility] Height 2022-03-15 00:00:00 68 [in_i] [facility] BMI (Body Mass Index) 2022-03-15 00:00:00 25.8 kg/m2 [facility] Body Weight 2022-03-15 00:00:00 170 [lb_av] [facility] Height 2022-02-15 00:00:00 68 [in_i] [facility] BMI (Body Mass Index) 2022-02-15 00:00:00 25.8 kg/m2 [facility] Body Weight 2022-02-15 00:00:00 170 [lb_av] [facility] Systolic blood pressure 2021-12-29 17:53:00 107 mm[Hg] [facility] Diastolic blood pressure 2021-12-29 17:53:00 67 mm[Hg] [facility] Heart rate 2021-12-29 17:53:00 74 /min Unive [facility] Body temperature 2021-12-29 17:53:00 36.44 Sonam [facility] Respiratory rate 2021-12-29 17:53:00 18 /min [facility] Body height 2021-12-29 17:53:00 172.7 cm per pt [facility] Body weight 2021-12-29 17:53:00 81.965 kg [facility] BMI 2021-12-29 17:53:00 27.48 kg/m2 [facility] Oxygen saturation in Arterial blood by Pulse oximetry 2021-12-29 17:53:00 99 /min [facility] Height 2021-11-02 00:00:00 68 [in_i] [facility] BMI (Body Mass Index) 2021-11-02 00:00:00 25.8 kg/m2 [facility] Body Weight 2021-11-02 00:00:00 170 [lb_av] [facility] Systolic blood pressure 2021-10-20 15:53:00 160 mm[Hg] [facility] Diastolic blood pressure 2021-10-20 15:53:00 78 mm[Hg] [facility] Heart rate 2021-10-20 15:50:00 82 /min Unive [facility] Body temperature 2021-10-20 15:50:00 36.89 Sonam [facility] Respiratory rate 2021-10-20 15:50:00 17 /min [facility] Body height 2021-10-20 15:50:00 172.7 cm [facility] Body weight 2021-10-20 15:50:00 77.565 kg [facility] BMI 2021-10-20 15:50:00 26.00 kg/m2 [facility] Oxygen saturation in Arterial blood by Pulse oximetry 2021-10-20 15:50:00 98 /min [facility] height 2021-09-06 08:30:00 68 [in_i] Commo n [facility] weight 2021-09-06 08:30:00 173.3 [lb_av] Co mmon [facility] bmi 2021-09-06 08:30:00 26.35 kg/m2 Comm on [facility] blood pressure systolic 2021-09-06 08:30:00 144 mm[Hg] Common [facility] blood pressure diastolic 2021-09-06 08:30:00 84 mm[Hg] Common [facility] height 2021-07-07 13:30:00 68 [in_i] Commo n [facility] weight 2021-07-07 13:30:00 176 [lb_av] Comm on [facility] temperature 2021-07-07 13:30:00 97.2 [degF] Com [facility] bmi 2021-07-07 13:30:00 26.76 kg/m2 Comm on [facility] blood pressure systolic 2021-07-07 13:30:00 148 mm[Hg] Common [facility] blood pressure diastolic 2021-07-07 13:30:00 73 mm[Hg] Common [facility] height 2021-06-07 13:00:00 68 [in_i] Commo n [facility] weight 2021-06-07 13:00:00 176 [lb_av] Comm on [facility] temperature 2021-06-07 13:00:00 96.8 [degF] Com mon [facility] bmi 2021-06-07 13:00:00 26.76 kg/m2 Comm on [facility] blood pressure systolic 2021-06-07 13:00:00 124 mm[Hg] [facility] blood pressure diastolic 2021-06-07 13:00:00 76 mm[Hg] [facility] Systolic blood pressure 2021-05-09 16:22:00 153 mm[Hg] [facility] Diastolic blood pressure 2021-05-09 16:22:00 73 mm[Hg] [facility] Heart rate 2021-05-09 16:22:00 69 /min [facility] Respiratory rate 2021-05-09 16:21:00 19 /min [facility] Body height 2021-05-09 16:21:00 172.7 cm [facility] Body weight 2021-05-09 16:21:00 81.285 kg [facility] BMI 2021-05-09 16:21:00 27.25 kg/m2 [facility] Oxygen saturation in Arterial blood by Pulse oximetry 2021-05-09 16:21:00 100 /min [facility] Procedures Procedure Date / Time Performed Performing Clinician Source XR, femur, 2 or more view 2022-06-14 00:00:00 [facility] XR, hip + pelvis, unilateral, 2 or 3 view 2022-06-14 00:00:00 [facility] XR, hip + pelvis, unilateral, 2 or 3 view 2022-03-15 00:00:[address] [facility], lower extremity, w/o contrast 2022-03-15 00:00:00 [facility] XR, hip + pelvis, unilateral, 2 or 3 view 2022-02-15 00:00:00 [facility] Revise Hip Joint Replacement 2022-01-19 00:00:00 [facility] ASSIGNMENT OF BENEFITS 2021-12-29 17:31:06 Sintia ortega Unassigned, [place] [facility] MEDICAL RELEASE/CLEARANCE FORMS 2021-12-14 05:01:00 Doctor Unassigned, [place] [facility] NOTICE OF BILLING PRACTICES FOR MEDICARE PATIENTS 2021-12-08 14:33:50 Doctor Unassigned, [place] [facility] MEDICAL RELEASE/CLEARANCE FORMS 2021-11-25 05:01:00 Doctor Unassigned, [place] [facility] XR, hip + pelvis, unilateral, 2 or 3 view 2021-11-02 00:00:00 [facility] POCT URINALYSIS 2021-10-20 15:58:00 Kelly Avalos [facility] HB ECG ROUTINE & RHYTHM STRIP 2021-05-09 16:14:24 Maricarmen Garcia [facility] Plan of Care Planned Activity Planned Date Details Comments Source Instructions [facility] Encounters Start Date/Time End Date/Time Encounter Type Admission Type Attending [facility] Facility Care Department Encounter ID Source 2021-10-10 12:15:00 Outpatient Cole, Patric [facility] [id number] [facility] 2021-09-06 08:26:01 Outpatient Cole, Patric [facility] [id number] [facility] 2021-06-07 14:54:02 Outpatient Cole, Patric [facility] [id number] [facility] 2021-05-23 15:27:02 Outpatient Cole, Patric [facility] [id number] [facility] 2021-04-06 12:20:03 Outpatient Cole, Patric [facility] [id number] [facility] 2021-04-06 11:34:20 Outpatient Cole, [facility] [id number] [facility] 2021-03-07 10:45:00 Inpatient Andreas Rodriguez [facility] EDUARD[facility] [id number] [facility] 2021-01-12 13:28:28 Outpatient [facility] ER [id number] [facility] 2021-01-10 11:46:45 Outpatient STEFANIE GOODMAN [facility] ER [id number] [facility] 2021-01-08 23:01:54 Emergency [facility] [id number] [facility] 2021-01-08 20:27:01 Emergency [facility] [id number] [facility] 2023-01-24 00:00:00 2023-01-24 00:00:00 Outpatient FOG_Mathews _Vasil_MD AOSM AOSM [id number] [facility] 2023-01-08 00:00:00 2023-01-08 00:00:00 Outpatient GC_GCBZW_Ka diyala_S PRIV PRIV [id number] [facility] 2023-01-07 00:00:00 2023-01-07 00:00:00 Outpatient GC_GCBZW_Ka diyala_S PRIV PRIV [id number] [facility] 2022-12-28 00:00:00 2022-12-28 00:00:00 Outpatient FOG_Mathews _Vasil_MD AOSM AOSM [id number] [facility] 2022-12-28 00:00:00 2022-12-28 00:00:00 Outpatient FOG_Mathews _Vasil_MD AOSM AOSM [id number] [facility] 2022-12-11 00:00:00 2022-12-11 00:00:00 Outpatient FOG_Mathews _Vasil_MD AOSM AOSM [id number] [facility] 2022-12-11 00:00:00 2022-12-11 00:00:00 Outpatient FOG_Mathews _Vasil_MD AOSM AOSM [id number] [facility] 2022-12-11 00:00:00 2022-12-11 00:00:00 Outpatient FOG_Mathews _Vasil_MD AOSM AOSM [id number] [facility] 2022-09-11 00:00:00 2022-09-11 00:00:00 Outpatient FOG_Mathews _Vasil_MD AOSM AOSM [id number] [facility] 2022-08-18 00:00:00 2022-08-18 00:00:00 Outpatient FOG_Mathews _Vasil_MD AOSM AOSM [id number] [facility] 2022-08-15 00:00:00 2022-08-15 00:00:00 Outpatient FOG_Mathews _Vasil_MD AOSM AOSM [id number] [facility] 2022-08-08 00:00:00 2022-08-08 00:00:00 Outpatient FOG_Mathews _Vasil_MD AOSM AOSM [id number] [facility] 2022-08-08 00:00:00 2022-08-08 00:00:00 Outpatient FOG_Mathews _Vasil_MD AOSM AOSM [id number] [facility] 2022-08-08 00:00:00 2022-08-08 00:00:00 Outpatient FOG_Mathews _Vasil_MD AOSM AOSM [id number] [facility] 2022-07-29 00:00:00 2022-07-29 00:00:00 Outpatient FOG_Mathews _Vasil_MD AOSM AOSM [id number] [facility] 2022-07-19 00:00:00 2022-07-19 00:00:00 Outpatient FOG_Mathews _Vasil_MD AOSM AOSM [id number] [facility] 2022-07-19 00:00:00 2022-07-19 00:00:00 Outpatient FOG_Mathews _Vasil_MD AOSM AOSM [id number] [facility] 2022-07-11 00:00:00 2022-07-11 00:00:00 Outpatient FOG_Mathews _Vasil_MD AOSM AOSM [id number] [facility] 2022-06-16 00:00:00 2022-06-16 00:00:00 Outpatient FOG_Mathews _Vasil_MD AOSM AOSM [id number] [facility] 2022-06-14 00:00:00 2022-06-14 00:00:00 Fabricio Cartagena MD: [address] [place] [address] , Ph. [phone] [place] [facility] [place] [facility] [id number] [facility] 2022-06-10 00:00:00 2022-06-10 00:00:00 Outpatient FOG_Mathews _Vasil_MD AOSM AOSM [id number] [facility] 2022-06-10 00:00:00 2022-06-10 00:00:00 Outpatient FOG_Mathews _Vasil_MD AOSM AOSM [id number] [facility] 2022-06-10 00:00:00 2022-06-10 00:00:00 Outpatient FOG_Mathews _Vasil_MD AOSM AOSM [id number] [facility] 2022-05-30 00:00:00 2022-05-30 00:00:00 Outpatient FOG_Mathews _Vasil_MD AOSM AOSM [id number] [facility] 2022-05-12 00:00:00 2022-05-12 00:00:00 Outpatient FOG_Mathews _Vasil_MD AOSM AOSM [id number] [facility] 2022-05-08 00:00:00 2022-05-08 00:00:00 Outpatient FOG_Mathews _Vasil_MD AOSM AOSM [id number] [facility] 2022-05-08 00:00:00 2022-05-08 00:00:00 Outpatient FOG_Mathews _Vasil_MD AOSM AOSM [id number] [facility] 2022-05-03 00:00:00 2022-05-03 00:00:00 Outpatient FOG_Mathews _Vasil_MD AOSM AOSM [id number] [facility] 2022-05-02 00:00:00 2022-05-02 00:00:00 Outpatient FOG_Mathews _Vasil_MD AOSM AOSM [id number] [facility] 2022-04-28 00:00:00 2022-04-28 00:00:00 Vineet Weeks MD: [address] [place] [address] , Ph. [phone] [facility] [place] [facility] [place] [facility] [id number] [facility] 2022-04-19 00:00:00 2022-04-19 00:00:00 Outpatient FOG_Mathews _Vasil_MD AOSM AOSM [id number] [facility] 2022-04-19 00:00:00 2022-04-19 00:00:00 Outpatient FOG_Mathews _Vasil_MD AOSM AOSM [id number] [facility] 2022-04-19 00:00:00 2022-04-19 00:00:00 Outpatient FOG_Mathews _Vasil_MD AOSM AOSM [id number] [facility] 2022-04-19 00:00:00 2022-04-19 00:00:00 Outpatient FOG_Mathews _Vasil_MD AOSM AOSM [id number] [facility] 2022-04-11 10:00:00 2022-04-11 10:00:00 Outpatient MARICARMEN SANDOVAL [facility] [id number] [facility] 2022-03-15 00:00:00 2022-03-15 00:00:00 Outpatient FOG_Mathews _Vasil_MD AOSM AOSM [id number] [facility] 2022-03-15 00:00:00 2022-03-15 00:00:00 Fabricio Cartagena MD: [address] [place] [address] , Ph. [phone] [place] [facility] [place] [facility] [place] [id number] [facility] 2022-03-06 00:00:00 2022-03-06 00:00:00 Outpatient FOG_Mathews _Vasil_ AOSM AO [id number] [facility] 2022-03-06 00:00:00 2022-03-06 00:00:00 Outpatient FOG_Mathdanilo _Maryil_ AOSM AO [id number] [facility] 2022-03-06 00:00:00 2022-03-06 00:00:00 Outpatient FOG_Mathdanilo _Vasil_ AOSM AO [id number] [facility] 2022-02-17 00:00:00 2022-02-17 00:00:00 Outpatient FOG_Mathews _Vasil_ AOSM AO [id number] [facility] 2022-02-15 00:00:00 2022-02-15 00:00:00 Outpatient FOG_Mathews _Vasil_ AOSM AO [id number] [facility] 2022-02-15 00:00:00 2022-02-15 00:00:00 Fabricio Cartagena MD: [address] [place] [address] , Ph. [phone] [place] [facility] [place] [facility] [id number] [facility] 2022-02-07 00:00:00 2022-02-07 00:00:00 Outpatient FOG_Mathews _Vasil_MD AOSM AOSM [id number] [facility] 2022-02-06 00:00:00 2022-02-06 00:00:00 Outpatient FOG_Mathews _Vasil_MD AOSM AO [id number] [facility] 2022-01-31 00:00:00 2022-01-31 00:00:00 Outpatient FOG_Mathdanilo _Vasil_MD AOSM AO [id number] [facility] 2022-01-26 00:00:00 2022-01-26 00:00:00 Outpatient FOG_Mathews _Vasil_MD AOSM AO [id number] [facility] 2022-01-24 00:00:00 2022-01-24 00:00:00 Outpatient FOG_Mathews _Vasil_MD AOSM AO [id number] [facility] 2022-01-23 00:00:00 2022-01-23 00:00:00 Outpatient FOG_Mathews _Vasil_ AO AO [id number] [facility] 2022-01-19 00:00:00 2022-01-19 00:00:00 Fabricio Cartagena MD: [address] [place] [address] , Ph. [phone] [place] [facility] [place] [facility] [id number] [facility] 2021-12-29 13:00:00 2021-12-29 16:09:11 Outpatient R MARICARMEN GARCIA [facility] [id number] [facility] 2021-12-29 13:00:00 2021-12-29 13:20:00 [id number] [facility] 2021-12-29 00:00:00 2021-12-29 00:00:00 Orders Only Doctor Unassigned, [place] [facility] ..[id number] [facility] 2021-12-22 00:00:00 2021-12-22 00:00:00 [facility]patient [place] [id number] [facility] 2021-12-16 00:00:00 2021-12-16 00:00:00 Outpatient [facility] [id number] [facility] 2021-12-15 00:00:00 2021-12-15 00:00[facility] [place] 1.2.840.114 350.1.13.10 4.2.7.2.686 [id number] 059 [id number] [facility] 2021-12-14 00:00:00 2021-12-14 00:00:00 [facility] 1.2.840.114 350.1.13.10 4.2.7.2.686 [id number] 059 [id number] [facility] 2021-12-14 00:00:00 2021-12-14 00:00:00 Orders Only Doctor Unassigned, [place] [facility] 1.2.840.114 350.1.13.10 4.2.7.2.686 [id number] [id number] [facility] 2021-12-13 00:00:00 2021-12-13 00:00:00 [facility] 1.2.840.114 350.1.13.10 4.2.7.2.686 [id number] 059 [id number] [facility] 2021-12-08 09:33:57 2021-12-08 23:59:00 Outpatient R HARSHIL [facility] [id number] [facility] 2021-12-08 00:00:00 2021-12-08 00:00:00 Orders Only Doctor Unassigned, [place] [facility] 1.2.840.114 350.1.13.10 4.2.7.2.686 [id number] [id number] [facility] 2021-12-02 16:09:00 2021-12-02 16:09:00 Outpatient CartagenaMaryFabricio HCACL LABO [id number] [facility] 2021-12-02 16:09:00 2021-12-02 16:09:00 Outpatient OLGA LIDIA CartagenaMaryFabricio HCACL LABO [id number] 81 [facility] 2021-12-02 10:27:00 2021-12-02 10:27:00 Outpatient OLGA LIDIA OsielMaryFabricio HCATO RADI [id number] [facility] 2021-11-25 00:00:00 2021-11-25 00:00:00 Telephone [facility]armen [facility] 1.2.840.114 350.1.13.10 4.2.7.2.686 [id number] [id number] [facility] 2021-11-25 00:00:00 2021-11-25 00:00:00 Orders Only Doctor Unassigned, [place] [facility] 1.2.840.114 350.1.13.10 4.2.7.2.686 [id number] [id number] [facility] 2021-11-24 00:00:00 2021-11-24 00:00:00 Outpatient [place]_Osiel _Libby_ AOSM AO [id number] [facility] 2021-11-21 16:22:00 2021-11-21 16:22:00 Outpatient Fabricio Cardoza HCACL LABO [id number] [facility] 2021-11-11 00:00:00 2021-11-11 00:00:00 Outpatient FOG_Osiel _Libby_ AOSM AO [id number] [facility] 2021-11-02 00:00:00 2021-11-02 00:00:00 Outpatient FOG_Osiel _Libby_ AOSM AO [id number] [facility] 2021-11-02 00:00:00 2021-11-02 00:00:00 Fabricio Cartagena MD: [id number] [place] [address] , Ph. [phone] [facility] [place] [facility] [place] [facility] [id number] [facility] 2021-11-02 00:00:00 2021-11-02 00:00:00 Outpatient Fabricio Cartagena AO AO [id number] 2021-10-20 11:00:00 2021-10-20 11:20:08 Outpatient R FAHEEM DES [facility] [id number] [facility] 2021-10-20 11:00:00 2021-10-20 11:20:00 Urgent Care Faheem [facility] 1.2.840.114 350.1.13.10 4.2.7.2.686 [id number] [facility] 2021-09-28 00:00:00 2021-09-28 00:00:00 Outpatient FOG_Osiel De La Vega AO AO [id number] [facility] 2021-09-21 00:00:00 2021-09-21 00:00:00 Telephone [facility]armen [facility] 1.2.840.114 350.1.13.10 4.2.7.2.686 [id number] [facility] 2021-09-06 00:00:00 2021-09-06 00:00:00 OFFICE VISIT ESTAB PT LEVEL 4 STLMLC STLMLC [id number] [facility] 2021-07-13 00:00:00 2021-07-13 00:00:00 (TEL) STLMLC STLMLC [id number] [facility] 2021-07-07 00:00:00 2021-07-07 00:00:00 Postop visit STLMLC STLMLC [id number] [facility] 2021-07-04 00:00:00 2021-07-04 00:00:00 (TEL) STLMLC STLMLC [id number] [facility] 2021-06-23 00:00:00 2021-06-23 00:00:00 (TEL) STLMLC STLMLC [id number] [facility] 2021-06-08 09:00:00 2021-06-08 09:00:00 Outpatient R MARICARMEN GARCIA [facility] [id number] [facility] 2021-06-07 10:00:00 2021-06-07 10:00:00 Outpatient R HARSHIL [facility]ARCIAFORMERLY [facility] [id number] [facility] 2021-06-07 10:00:00 2021-06-07 10:00:00 Outpatient R MARICARMEN GARCIA [facility] [id number] [facility] 2021-06-07 00:00:00 2021-06-07 00:00:00 NON-BILLAB LE VISIT STLMLC STLMLC [id number] [facility] 2021-06-06 10:00:00 2021-06-06 10:00:00 Outpatient R [facility] [id number] [facility] 2021-05-09 09:40:00 2021-05-09 10:48:25 Outpatient R MARICARMEN GARCIA [facility] [id number] [facility] 2021-05-09 09:40:00 2021-05-09 10:48:25 Office Visit Maricarmen Garcia [facility] 1..840.114 350.1.13.10 4.2.7.2.686 [id number] [facility] 2021-05-09 09:40:00 2021-05-09 10:48:25 Outpatient R HARSHIL GARCIAFORMERLY [facility] [id number] [facility] 2021-05-09 09:40:00 2021-05-09 10:48:25 Outpatient R HARSHIL [facility]ARCIAFORMERLY [facility] [id number] [facility] 2021-05-09 00:00:00 2021-05-09 00:00:00 Orders Only Doctor Unassigned, [place] [facility] 1.2.840.114 350.1.13.10 4.2.7.2.686 [id number] [facility] 2021-04-11 08:06:01 2021-04-11 23:59:00 Outpatient R SHANNAN ROY [facility] [id number] [facility] 2021-04-11 08:00:00 2021-04-11 23:59:00 Hospital Encounter Shannan Roy [facility] 1.2.840.114 350.1.13.10 4.2.7.2.686 [id number] [facility] 2021-04-04 00:00:00 2021-04-04 00:00:00 Outpatient R SHANNAN ROY [facility] [id number] [facility] 2021-03-29 11:00:00 2021-03-29 11:00:00 Outpatient R MARCK HANNA OGECHUKWU [facility] [id number] [facility] 2021-03-25 11:00:00 2021-03-25 11:50:59 Outpatient R SAHNNAN ROY [facility] [id number] [facility] 2021-03-25 11:00:00 2021-03-25 11:50:59 Office Visit Shannan Roy [facility] 1.2.840.114 350.1.13.10 4.2.7.2.686 [id number] [facility] 2021-03-25 11:00:00 2021-03-25 11:50:59 Outpatient R SHANNAN ROY [facility] [id number] [facility] 2021-03-25 00:00:00 2021-03-25 00:00:00 Orders Only Doctor Unassigned, [place] [facility] 1.2840.114 350.1.13.10 4.2.7.2.686 [id number] [id number] [facility] 2021-03-21 07:45:00 2021-03-21 08:00:00 Program Officer Visit Pob, Adc Lab Main [facility] 1.2.840.114 350.1.13.10 4.2.7.2.686 [id number] [facility] 2021-03-21 07:45:00 2021-03-21 07:45:00 Outpatient R SHANNAN ROY [facility] [id number] [facility] 2021-02-18 10:00:00 2021-02-18 10:00:00 Outpatient R [facility] [id number] [facility] 2021-02-17 00:00:00 2021-02-17 00:00:00 [facility] 1.2.840.114 350.1.13.10 4.2.7.2.686 [id number] [facility] 2021-02-14 00:00:00 2021-02-14 00:00:00 Orders Only Doctor Unassigned, [place] [facility] 1.2840.114 350.1.13.10 4.2.7.2.686 [id number] [facility] 2021-02-08 00:00:00 2021-02-08 00:00:00 Telephone Shannan Roy [facility] 1.2.840.114 350.1.13.10 4.2.7.2.686 [id number] [facility] 2021-01-10 00:00:00 2021-01-10 00:00:00 [facility] 1.2.840.114 350.1.13.10 4.2.7.2.686 [id number] [facility] 2021-01-07 10:00:00 2021-01-07 10:27:04 [facility] [id number] 2021-01-07 09:56:23 2021-01-07 10:27:04 [facility] 1.2.840.114 350.1.13.10 4.2.7.2.686 [id number] [facility] 2021-01-07 10:00:00 2021-01-07 10:00:00 [facility] [id number] [facility] 2021-01-03 00:00:00 2021-01-03 00:00:00 [facility] 1.2.840.114 350.1.13.10 4.2.7.2.686 [id number] [facility] 2021-01-03 00:00:00 2021-01-03 00:00:00 [facility] 1.2.840.114 350.1.13.10 4.2.7.2.686 [id number] [facility] 2020-12-30 08:40:00 2020-12-30 23:59:00 Hospital Encounter Radiology [facility] 1.2.840.114 350.1.13.10 4.2.7.2.686 [id number] [facility] 2020-12-30 10:30:00 2020-12-30 10:30:00 Outpatient R ERICA CABA SHIWAN [facility] [id number] [facility] 2020-12-30 08:59:10 2020-12-30 09:14:10 Program Officer Visit Pob, Adc Lab Main Shannan Roy [facility] Professio nal Building 1.2840.114 350.1.13.10 4.2.7.2.686 [id number] [facility] 2020-12-28 09:58:42 2020-12-28 23:59:00 Hospital Encounter Radiology [facility] 1.2.840.114 350.1.13.10 4.2.7.2.686 [id number] [facility] 2020-12-28 00:00:00 2020-12-28 00:00:00 Outpatient R RADIOLOGY [facility] [id number] [facility] 2020-12-28 00:00:00 2020-12-28 00:00:00 Orders Only Doctor Unassigned, [place] [facility] 1.2840.114 350.1.13.10 4.2.7.2.686 [id number] [facility] 2020-11-12 09:30:00 2020-11-12 09:30:00 Outpatient R SHANNAN ROY [facility] [id number] [facility] 2020-11-12 00:00:00 2020-11-12 00:00:00 Telephone Erica Caba [facility] Building 1.2840.114 350.1.13.10 4.2.7.2.686 [id number] [facility] 2020-11-08 07:50:52 2020-11-08 23:59:00 Hospital Encounter Caba Erica [facility] 1.2.840.114 350.1.13.10 4.2.7.2.686 [id number] [facility] 2020-11-08 09:00:00 2020-11-08 09:00:00 Outpatient R SHANNAN ROY [facility] [id number] [facility] 2020-11-08 00:00:00 2020-11-08 00:00:00 Outpatient R ERICA CABA [facility] [id number] [facility] 2020-11-05 13:00:00 2020-11-05 13:00:00 Outpatient R SHANNAN ROY [facility] [id number] [facility] 2020-10-29 13:48:11 2020-10-29 14:15:23 Office Visit Erica Caba [facility] 1.2.840.114 350.1.13.10 4.2.7.2.686 [id number] [facility] 2020-10-29 14:00:00 2020-10-29 14:00:00 Outpatient R ERICA CABA SHIWAN [facility] [id number] [facility] 2020-10-11 10:00:00 2020-10-11 10:00:00 Outpatient R KALEIGH SHANNAN [facility] [id number] [facility] 2020-10-07 00:00:00 2020-10-07 00:00:00 Telephone [facility]ana Gao [facility] 1.2.840.114 350.1.13.10 4.2.7.2.686 [id number] [facility] 2020-10-05 11:30:00 2020-10-05 11:30:00 Outpatient SANA VEGAS [facility] [id number] [facility] 2020-10-05 11:14:57 2020-10-05 11:29:57 Program Officer Visit Keaton, Pinky Lab Main Sana Gao [facility] 1.2.840.114 350.1.13.10 4.2.7.2.686 [id number] [facility] 2020-10-05 00:00:00 2020-10-05 00:00:00 Orders Only Doctor Unassigned, [place] [facility] 1.840.114 350.1.13.10 4.2.7.2.686 [id number] [id number] [facility] 2020-09-30 09:00:00 2020-09-30 09:00:00 Outpatient ERICA LOVE SHIWAN [facility] [id number] [facility] 2020-09-17 00:00:00 2020-09-17 00:00:00 Telephone PerfectoSana [facility] 1.840.114 350.1.13.10 4.2.7.2.686 [id number] [facility] 2020-09-16 00:00:00 2020-09-16 00:00:00 Telephone Perfecto Sana Wall [facility] 1.2.840.114 350.1.13.10 4.2.7.2.686 [id number] [facility] 2020-08-16 00:00:00 2020-08-16 00:00:00 Telephone Johanny Kaplan [facility] 1.2840.114 350.1.13.10 4.2.7.2.686 [id number] [facility] 2020-08-12 10:23:08 2020-08-12 23:59:00 Hospital Encounter Radiology [facility] 1.2840.114 350.1.13.10 4.2.7.2.686 [id number] [facility] 2020-08-12 10:25:23 2020-08-12 10:40:23 Program Officer Visit Pob, Adc Lab Main Eusebio [facility] 1.284.114 350.1.13.10 4.2.7.2.686 [id number] [facility] 2020-08-12 00:00:00 2020-08-12 00:00:00 Outpatient R RADIOLOGY [facility] [id number] [facility] 2020-08-12 00:00:00 2020-08-12 00:00:00 Orders Only Doctor Unassigned, [place] [facility] 1.284.114 350.1.13.10 4.2.7.2.686 [id number] [facility] 2020-08-11 00:00:00 2020-08-11 00:00:00 Telephone Sana Gao [facility] 1.284.114 350.1.13.10 4.2.7.2.686 [id number] [facility] 2020-07-26 13:20:00 2020-07-26 13:20:00 Outpatient R GRACY MCKEON [facility] [id number] [facility] 2020-07-20 10:00:00 2020-07-20 10:00:00 Outpatient R EUSEBIO, RALPHCORAL [facility] [id number] [facility] 2020-07-12 00:00:00 2020-07-12 00:00:00 Telephone Sana Gao [facility] 1.2840.114 350.1.13.10 4.2.7.2.686 [id number] [facility] 2020-07-08 10:28:55 2020-07-08 10:43:55 Program Officer Visit Keaton, Adc Lab Main Tri Torres [facility] Building 1.114 350.1.13.10 4.2.7.2.686 [id number] [facility] 2020-07-08 10:30:00 2020-07-08 10:30:00 Outpatient TRI DURAND [facility] [id number] [facility] 2020-07-08 00:00:00 2020-07-08 00:00:00 Telephone Sana Gao [facility] 1..114 350.1.13.10 4.2.7.2.686 [id number] [facility] 2020-07-08 00:00:00 2020-07-08 00:00:00 Orders Only Doctor Unassigned, [place] [facility] 1.114 350.1.13.10 4.2.7.2.686 [id number] [id number] [facility] 2020-07-06 09:48:07 2020-07-06 10:54:20 Office Visit EusebioJohanny [facility] 1.114 350.1.13.10 4.2.7.2.686 [id number] [facility] 2020-07-06 09:45:00 2020-07-06 09:45:00 Outpatient Evaristo [facility] [id number] [facility] 2020-06-30 16:54:53 2020-06-30 17:09:53 Program Officer Visit Keaton, Adc Lab Main Sana Gao [facility] Building 1.114 350.1.13.10 4.2.7.2.686 [id number] [facility] 2020-06-30 17:00:00 2020-06-30 17:00:00 Outpatient R SANA GAO [facility] [id number] [facility] 2020-06-30 00:00:00 2020-06-30 00:00:00 Orders Only Doctor Unassigned, [place] [facility] 1.2.840.114 350.1.13.10 4.2.7.2.686 [id number] [id number] [facility] 2020-06-28 00:00:00 2020-06-28 00:00:00 Telephone Sana Gao [facility] 1.2.840.114 350.1.13.10 4.2.7.2.686 [id number] [facility] 2020-06-21 10:25:21 2020-06-21 23:59:00 Hospital Encounter Radiology [facility] 1.2.840.114 350.1.13.10 4.2.7.2.686 [id number] [facility] 2020-06-21 00:00:00 2020-06-21 00:00:00 Outpatient R RADIOLOGY [facility] [id number] [facility] 2020-06-04 00:00:00 2020-06-04 00:00:00 Case Management Sana Gao [facility] Building 1.2.840.114 350.1.13.10 4.2.7.2.686 [id number] [facility] 2020-06-03 16:10:40 2020-06-03 23:59:00 Hospital Encounter Sana Gao [facility] 1.2.840.114 350.1.13.10 4.2.7.2.686 [id number] [facility] 2020-06-03 14:28:14 2020-06-03 16:02:32 Nurse Visit Nurse, [facility] Surgery Gu Sana Gao [facility] 1..840.114 350.1.13.10 4.2.7.2.686 [id number] [facility] 2020-06-03 14:30:00 2020-06-03 14:30:00 Outpatient R [facility] [id number] [facility] 2020-06-03 00:00:00 2020-06-03 00:00:00 Orders Only Doctor Unassigned, [place] [facility] 1.840.114 350.1.13.10 4.2.7.2.686 [id number] [id number] [facility] 2020-06-02 12:51:03 2020-06-02 13:06:03 Program Officer Visit Pob, [facility] Lab Main Sana Gao [facility] 1..840.114 350.1.13.10 4.2.7.2.686 [id number] [facility] 2020-06-02 13:00:00 2020-06-02 13:00:00 Outpatient R SANA GAO [facility] [id number] [facility] 2020-06-01 00:00:00 2020-06-01 00:00:00 Patient Outreach Paul Brand [facility] 1.840.114 350.1.13.10 4.2.7.2.686 [id number] [facility] 2020-05-17 00:00:00 2020-05-17 00:00:00 Outpatient STLMLC STLMLC [id number] [facility] 2020-05-11 10:39:02 2020-05-11 11:23:09 Office Visit Sana Gao [facility] 1..840.114 350.1.13.10 4.2.7.2.686 [id number] [facility] 2020-05-11 10:45:00 2020-05-11 10:45:00 Outpatient SANA VEGAS [facility] [id number] [facility] 2020-04-27 10:30:00 2020-04-27 10:30:00 Outpatient SANA VEGAS [facility] [id number] [facility] 2020-04-22 09:35:00 2020-04-22 10:45:00 Emergency Osito Rodriguez [facility] 1.2.840.114 350.1.13.10 4.2.7.2.686 [id number] [facility] 2020-04-13 00:00:00 2020-04-13 00:00:00 Telephone Geovany Brink [facility] Medical Office Building 1.2.840.114 350.1.13.10 4.2.7.2.686 [id number] [facility] 2020-04-08 18:57:00 2020-04-08 21:59:00 Emergency Oscar Hill [facility] 1.2.840.114 350.1.13.10 4.2.7.2.686 [id number] [facility] 2020-04-07 00:00:00 2020-04-07 00:00:00 Telephone Kendra Oden [facility] Medical Office Building 1.2.840.114 350.1.13.10 4.2.7.2.686 [id number] [facility] 2020-04-05 10:00:00 2020-04-05 10:00:00 Outpatient GEOVANY FERNANDEZ [facility] [id number] [facility] 2020-04-05 09:08:27 2020-04-05 09:23:27 Program Officer Visit Pob, Adc Lab Main [facility]ovany [facility]ink [facility] 1.2.840.114 350.1.13.10 4.2.7.2.686 [id number] [facility] 2020-04-05 00:00:00 2020-04-05 00:00:00 Outpatient STLMLC STLMLC [id number] [facility] 2020-04-05 00:00:00 2020-04-05 00:00:00 Orders Only Doctor Unassigned, [place] [facility] 1.2.840.114 350.1.13.10 4.2.7.2.686 [id number] [id number] [facility] 2020-04-02 00:00:00 2020-04-02 00:00:00 Telephone AkshatKendra [facility] Medical Office Building 1.2.840.114 350.1.13.10 4.2.7.2.686 [id number] [facility] 2020-04-02 00:00:00 2020-04-02 00:00:00 Telephone Geovany Brink [facility] Medical Office Building 1.2.840.114 350.1.13.10 4.2.7.2.686 [id number] [facility] 2020-03-22 00:00:00 2020-03-22 00:00:00 Outpatient STLMLC STLMLC [id number] [facility] 2020-03-10 00:00:00 2020-03-10 00:00:00 Outpatient STLMLC STLMLC [id number] [facility] 2020-02-24 10:30:00 2020-02-24 10:30:00 Outpatient ELIEL BRITO [facility] [id number] [facility] 2020-02-10 00:00:00 2020-02-10 00:00:00 Outpatient STLMLC STLMLC [id number] [facility] 2020-01-12 00:00:00 2020-01-12 00:00:00 Outpatient STLMLC STLMLC [id number] [facility] 2019-11-28 00:00:00 2019-11-28 00:00:00 Telephone Akshat [facility] 1.840.114 350.1.13.10 4.2.7.2.686 [id number] [facility] 2019-11-25 13:17:08 2019-11-25 14:58:15 Office Visit Akshat [facility] 1..114 350.1.13.10 4.2.7.2.686 [id number] [facility] 2019-11-25 13:30:00 2019-11-25 13:30:00 Outpatient R AKSHAT KENDRA [facility] [id number] [facility] 2019-11-25 00:00:00 2019-11-25 00:00:00 Orders Only Doctor Unassigned, [place] [facility] 1..114 350.1.13.10 4.2.7.2.686 [id number] [id number] [facility] 2019-11-18 09:30:00 2019-11-18 09:30:00 Outpatient R ISIDRA ODENKHAN [facility] [id number] [facility] 2019-10-13 10:00:00 2019-10-13 10:00:00 Outpatient [facility] [id number] [facility] 2018-11-29 00:00:00 2018-11-29 00:00:00 Telephone Sana Gao [facility] Thomas Esparza [facility] 1.84.114 350.1.13.10 4.2.7.2.686 [id number] 2018-11-29 00:00:00 2018-11-29 00:00:00 Telephone Sana Gao [facility] 1.2.840.114 350.1.13.10 4.2.7.2.686 [id number] [facility] 2018-10-24 15:15:31 2018-10-24 15:41:04 Office Visit Erica Caba [facility] [id number] 350.1.13.10 [id number] [id number] [facility] 2018-10-24 15:15:31 2018-10-24 15:41:04 Office Visit Erica Caba [facility] [id number] [id number] [id number] 2018-10-16 00:00:00 2018-10-16 00:00:00 Orders Only Doctor Unassigned, [place] [facility] [id number] [id number] [id number] [id number] [facility] Results Test Description Test Time Test Comments Results Result Co mments Source [facility] metabolic [id number] 04:00:00* Test Item Value Reference Range Interpretation Comme nts sodium (test code = sodium) 139 mmol/L 136-145 potassium (test code = potassium) 5.2 mmol/L 3.5-5.1 H chloride (test code = chloride) 103.0 mmol/L 98-107 carbon dioxide (test code = carbon dioxide) 23.7 mmol/L 21-32 glucose (test code = glucose) 127 mg/dL 70-110 H blood urea nitrogen (test co de = blood urea nitrogen) 20 mg/dL 7-18 H glomerular filtration rate ( test code = glomerular filtration rate) 45.6 >60 creatinine (test code = creatinine) 1.30 mg/dL 0.55-1.30 calcium (test code = calcium) 8.1 mg/dL 8.2-10.1 L performing lab: (test code = performing lab[facility]20 04:00:00* Test Item Value Reference Range Interpretation Comme nts hemoglobin (test code = hemoglobin) 9.9 g/dL 12-16 L hematocrit (test code = hematocrit) 29.7 % 37-47 L performing lab: (test code = performing lab:) [facility] metabolic [id number] 04:00:00* Test Item Value Reference Range Interpretation Comme nts sodium (test code = sodium) 139 mmol/L 136-145 potassium (test code = potassium) 5.2 mmol/L 3.5-5.1 H chloride (test code = chloride) 103.0 mmol/L 98-107 carbon dioxide (test code = carbon dioxide) 23.7 mmol/L 21-32 glucose (test code = glucose) 127 mg/dL 70-110 H blood urea nitrogen (test co de = blood urea nitrogen) 20 mg/dL 7-18 H glomerular filtration rate ( test code = glomerular filtration rate) 45.6 >60 creatinine (test code = creatinine) 1.30 mg/dL 0.55-1.30 calcium (test code = calcium) 8.1 mg/dL 8.2-10.1 L performing lab: (test code = performing lab:) [facility] 2022-01-20 04:00:00* Test Item Value Reference Range Interpretation Comme nts hemoglobin (test code = hemoglobin) 9.9 g/dL 12-16 L hematocrit (test code = hematocrit) 29.7 % 37-47 L performing lab: (test code = performing lab:) [facility] [id number] 04:00:00* Test Item Value Reference Range Interpretation Comme nts sodium (test code = sodium) 139 mmol/L 136-145 potassium (test code = potassium) 5.2 mmol/L 3.5-5.1 H chloride (test code = chloride) 103.0 mmol/L 98-107 carbon dioxide (test code = carbon dioxide) 23.7 mmol/L 21-32 glucose (test code = glucose) 127 mg/dL 70-110 H blood urea nitrogen (test co de = blood urea nitrogen) 20 mg/dL 7-18 H glomerular filtration rate ( test code = glomerular filtration rate) 45.6 >60 creatinine (test code = creatinine) 1.30 mg/dL 0.55-1.30 calcium (test code = calcium) 8.1 mg/dL 8.2-10.1 L performing lab: (test code = performing lab:) [facility]- XR FLUORO [id number] 11:29:00 [facility] : 1955 Sex: F Patient Name: VALENTINO DALAL Unit No: [id number] EXAMS: CPT CODE: [id number] XR FLUORO NDL 11832 Fluoroscopically guided right hip aspiration FINDINGS: After informed consent was obtained a 22-gauge needle is inserted into the right hip under fluoroscopic guidance using sterile technique. 1.5 cc of red fluid was aspirated. This is sent to the lab for analysis. The patient tolerated the procedure well.4 seconds of fluoroscopy time was used on this exam. IMPRESSION: Fluoroscopically guided right hip aspiration. at 1129 Reported and signed by: Chong Ochoa M.D. CC: Fabricio Cartagena MD Technologist: Kallie BECKWITH-RAD-TECH Transcribed D/ 1124) VicenteJ [facility] NAME: VALENTINO DALAL[address] [facility] PHYS: [id number] - Fabricio Cartagena : 1955 AGE: 66 SEX: F [place], [place] [address] LOC: Y.RAD PHONE #: [phone] EXAM DATE: 12/02/2021 STATUS: DEP CLI FAX #: [phone] RAD #: D/C DT PAGE 1 Signed Report Patient Name: VALENTINO DALAL Unit No: [id number] EXAMS: CPT CODE: [id number] XR FLUORO NDL 07771 (Continued) Orig Print D/T: S: 12/07/2021 (1132) [facility] NAME: VALENTINO DALAL [address] [facility] [place] PHYS: [id number] - Fabricio Cartagena : 1955 AGE: 66 SEX: F [place], [place] [address] LOC: RanjithRAD PHONE #: EXAM DATE: 12/02/2021 STATUS: DEP CLI FAX #: [phone] RAD #: D/C DT PAGE 2 Signed ReportSYNOVIAL FLD CELL [id number] 16:31:00* Test Item Value Reference Range Interpretation Comme nts SYNOVIAL FLD COLOR (test code = COLSY) BLOODY LT. YELLOW A SYNOVIAL FLD APPEARANCE (test code = APPSY) SLIGHT HAZY CLEAR SYNOVIAL FLD VOLUME (test code = VOLSY) 1 mL SYNOVIAL FLD WBC (test code = WBCSY) 1170.000 /MM3 0-200 H SYNOVIAL FLD RBC (test code = RBCSY) 725665.000 /mm3 0-2 H NOTE: An automated method is now being used to determinesynovial fluid WBC and RBC counts. The differential willstill be performed manually. SYNOVIAL FLD POLY (test code = POLYSY) 25 % 0-25 N SYNOVIAL FLD LYMPHOCYTE (test code = LYMPHSY) 19 % 0-78 N SYNOVIAL FLD MONOCYTE (test code = MONOSY) 1 % 0-71 N SYNOVIAL FLUID EOS (test code = EOSSY) 1 SYNOVIAL FLD PLASMA CELL (test code = PLASY) 54 % 0-0 H SPECIMEN COMMENT: ASPIRATIONPOCT URINALYSIS W SPECIFIC [id number] 16:01:00* Test Item Value Reference Range Interpretation Comme nts POCT U SP GRAV (test code = 3255) 1.015 mg/dl 1.005-1.025 POCT PH U (test code = 3254) 5 mg/dl 5-8 POCT U LEUK EST (test code = 3263) ++ Negative - Negative POCT U NIT (test code = 3262) positive Negative - Negative POCT U PROT (test code = 3259) trace Negative - Negative POCT U GLU (test code = 3256) normal Negative - Negative POCT U KETONE (test code = 3258) negative Negative - Negative POCT U UROBILI (test code = 3260) normal 0.2-1 POCT U BILI (test code = 3261) negative Negative - Negative POCT U BLD (test code = 3257) trace Negative - Negative POCT U COLOR (test code = 3266) dark yellow POCT U APPEAR (test code = 3267) cloudy HARRIET (test code = HARRIET) accurate developme nt and interpretation of all internal controls Lab Interpretation (test code = 16212-2) Abnormal [facility]
--- NOTE | 2023-03-10 15:29 | RAD REPORT ---
EXAM DESCRIPTION: RAD - Elbow Right 3 View - 03/10/2023 3:09 pm CLINICAL HISTORY: Right elbow pain status post injury FINDINGS: Mildly displaced radial neck fracture No dislocation Joint effusion
--- NOTE | 2023-03-10 15:30 | RAD REPORT ---
EXAM DESCRIPTION: RAD - Wrist Right 3 View - 03/10/2023 3:09 pm CLINICAL HISTORY: Right wrist pain status post injury FINDINGS: No fracture or dislocation is seen. If the patient continues to have symptoms to suggest a n occult fracture then a followup plain film series in 7 days would be recommended.
--- NOTE | 2023-03-10 15:30 | RAD REPORT ---
EXAM DESCRIPTION: RAD - Forearm Right - 03/10/2023 3:09 pm CLINICAL HISTORY: Right arm pain status post fall FINDINGS: A mildly displaced radial neck fracture
--- NOTE | 2023-03-10 15:31 | RAD REPORT ---
EXAM DESCRIPTION: RAD - Hand Right 3 View - 03/10/2023 3:09 pm CLINICAL HISTORY: Right hand pain status post injury FINDINGS: No fracture or dislocation is seen. Ring overlies the first proximal phalanx obscuring detail
--- NOTE | 2023-03-10 15:58 | EDPHYS ---
Physician Documentation [facility] Name: Bernadine Dalal Age: 67 yrs Sex: Female : 1955 Arrival Date: 03/10/2023 Time: 13:38 Bed 11 Private MD: ED Physician Jevon Hernandez HPI: 03/10 14:03 This 67 yrs old Female presents to ER via Ambulatory with complaints of Arm Injury, jh7 Fall Injury. 14:03 The patient or guardian complains of injury, pain, that is acute, swelling. The jh7 complaints affect the right antecubital area, dorsal aspect of right forearm, right wrist and right hand. Context: The problem was sustained at home, resulted from a fall. Onset: The symptoms/episode began/occurred acutely. Treatment prior to arrival includes: no previous treatment. Associated signs and symptoms: Pertinent positives: decreased range of motion, Pertinent negatives: numbness, tingling, weakness. 67-year-old female presents to the ER status post fall. She reports that she tripped over her dogs and landed on her right arm. She reports pain to the right elbow, forearm, wrist, and dorsal hand, but states the worst of the pain is on the elbow.. Historical: - Allergies: 14:05 PENICILLINS; bp 14:05 Vancomycin; bp - PMHx: 14:05 BRAIN CYST; Chronic pain; fall/L hip fx; Migraines; SVT; UTI; prolapsed uterus; bp Hypertensive disorder; - PSHx: 14:05 Left hip replacement; Total abdominal hysterectomy; Right hip replacement; bp - Immunization history:: Adult Immunizations up to date. - Social history:: Smoking status: Patient denies any tobacco usage or history of. ROS: 14:03 Constitutional: Negative for fever, chills, and weight loss, jh7 14:03 Eyes: Negative for injury, pain, redness, and discharge, Neck: Negative for injury, pain, and swelling, Cardiovascular: Negative for chest pain, palpitations, and edema, Respiratory: Negative for shortness of breath, cough, wheezing, and pleuritic chest pain, Abdomen/GI: Negative for abdominal pain, nausea, vomiting, diarrhea, and constipation, Back: Negative for injury and pain, Skin: Negative for injury, rash, and discoloration, Neuro: Negative for headache, weakness, numbness, tingling, and seizure, 14:03 MS/extremity: Positive for decreased range of motion, pain, swelling, tenderness, of the right wrist and right antecubital area, 14:03 All other systems are negative, Exam: 14:03 Constitutional: This is a well developed, well nourished patient who is awake, alert, jh7 and in no acute distress. Head/Face: Normocephalic, atraumatic. Eyes: Pupils equal round and reactive to light, extra-ocular motions intact. Lids and lashes normal. Conjunctiva and sclera are non-icteric and not injected. Cornea within normal limits. Periorbital areas with no swelling, redness, or edema. Neck: Trachea midline, no thyromegaly or masses palpated, and no cervical lymphadenopathy. Supple, full range of motion without nuchal rigidity, or vertebral point tenderness. No Meningismus. Cardiovascular: Regular rate and rhythm with a normal S1 and S2. No gallops, murmurs, or rubs. Normal PMI, no JVD. No pulse deficits. Respiratory: Lungs have equal breath sounds bilaterally, clear to auscultation and percussion. No rales, rhonchi or wheezes noted. No increased work of breathing, no retractions or nasal flaring. Abdomen/GI: Soft, non-tender, with normal bowel sounds. No distension or tympany. No guarding or rebound. No evidence of tenderness throughout. Back: No spinal tenderness. No costovertebral tenderness. Full range of motion. Skin: Warm, dry with normal turgor. Normal color with no rashes, no lesions, and no evidence of cellulitis. Neuro: Awake and alert, GCS 15, oriented to person, place, time, and situation. Sensory grossly intact. Normal gait. 14:03 Musculoskeletal/extremity: Extremities: noted in the right wrist and right antecubital area: contusion, decreased ROM, swelling, tenderness, ROM: limited active range of motion due to pain, in the right antecubital area, Circulation is intact in all extremities. Perfusion: the extremity is normally perfused throughout, pink, warm, with brisk capillary refill, Sensation intact. Vital Signs: 14:03 BP 162 / 66; Pulse 80; Resp 16; Temp 98.1; Pulse Ox 100% ; Weight 77.11 kg; Height 5 bp ft. 6 in. ; 14:03 Body Mass Index 27.44 (77.11 kg, 167.64 cm) bp MDM: 13:42 Patient medically screened. [facility] 15:40 Differential diagnosis: dislocation, closed fracture, contusion, sprain. Data reviewed: [facility] vital signs, nurses notes, radiologic studies, plain films. I considered the following discharge prescriptions or medication management in the emergency department Medications were administered in the Emergency Department. See MAR. Independent interpretation of the following test(s) in the Emergency Department X-Ray: My interpretation is radial neck fracture. Care significantly affected by the following chronic conditions: Hypertension. Counseling: I had a detailed discussion with the patient and/or guardian regarding the historical points, exam findings, and any diagnostic results supporting the discharge/admit diagnosis, the need for outpatient follow up, a orthopedic surgeon, to return to the emergency department if symptoms worsen or persist or if there are any questions or concerns that arise at home. Response to treatment: the patient's symptoms have mildly improved after treatment. 03/10 13:49 Order name: XRAY Elbow RIGHT 3 view; Complete Time: 15:33 7 03/10 13:49 Order name: XRAY Forearm RIGHT; Complete Time: 15:33 jh7 03/10 13:49 Order name: XRAY Wrist RIGHT 3 view; Complete Time: 15:33 jh7 03/10 13:49 Order name: XRAY Hand RIGHT 3 View; Complete Time: 15:33 jh7 03/10 15:34 Order name: Sling; Complete Time: 16:05 jh7 Administered Medications: 14:10 Drug: [place] PO 10 mg-325 mg 1 tabs PO once Route: PO; bp Disposition: 18:37 Co-signature as Attending Physician, Jevon Hernandez MD I reviewed the patient's care rn provided by the Advanced Practice Provider and agree with the diagnosis and treatment plan. Disposition Summary: 03/10/23 15:57 Discharge Ordered Notes: Location: Home [facility] Problem: new [facility] Symptoms: are unchanged [facility] Condition: Stable [facility] Diagnosis - Right radial neck fracture [facility] Followup: [facility] - With: Julius Oreilly MD - When: 5 - 6 days - Reason: Recheck today's complaints Discharge Instructions: - Discharge Summary Sheet 7 - Radial Fracture [facility] - How to Use a Sling [facility] Forms: - Medication Reconciliation Form [facility] - Thank You Letter 7 - Prescription Opioid Use 7 - Patient Portal Instructions 7 - Leadership Thank You Letter 7 Prescriptions: - Tramadol 50 mg Oral Tablet - take 1 tablet ORAL route every 8 hours as needed; 12 tablet; Refills: 0, jh7 Product Selection Permitted Signatures: Dispatcher [employer] Jevon Roque MD MD rn Peltier, Brian, RN RN Tanya Simpson FNP VEDA [facility] Corrections: (The following items were deleted from the chart) 14:05 14:05 PMHx: fall/L hip fx; bp bp
--- NOTE | 2023-03-10 15:58 | ER ---
Nurse's Notes [facility] Name: Bernadine Dalal Age: 67 yrs Sex: Female : 1955 Arrival Date: 03/10/2023 Time: 13:38 Bed 11 Private MD: Diagnosis: Right radial neck fracture Presentation: 03/10 14:03 Chief complaint: Patient states: TRIP OVER DOG \T\ 0900, NOW R FA AND WRIST PAIN. bp Coronavirus screen: At this time, the client does not indicate any symptoms associated with coronavirus-19. Ebola Screen: No symptoms or risks identified at this time. Initial Sepsis Screen: Does the patient meet any 2 criteria? No. Patient's initial sepsis screen is negative. Does the patient have a suspected source of infection? No. Patient's initial sepsis screen is negative. Risk Assessment: Do you want to hurt yourself or someone else? Patient reports no desire to harm self or others. Onset of symptoms was March 10, 2023 at 09:00. 14:03 Method Of Arrival: Ambulatory bp 14:03 Acuity: JODEE 4 bp Historical: - Allergies: 14:05 PENICILLINS; bp 14:05 Vancomycin; bp - PMHx: 14:05 BRAIN CYST; Chronic pain; fall/L hip fx; Migraines; SVT; UTI; prolapsed uterus; bp Hypertensive disorder; - PSHx: 14:05 Left hip replacement; Total abdominal hysterectomy; Right hip replacement; bp - Immunization history:: Adult Immunizations up to date. - Social history:: Smoking status: Patient denies any tobacco usage or history of. Vital Signs: 14:03 BP 162 / 66; Pulse 80; Resp 16; Temp 98.1; Pulse Ox 100% ; Weight 77.11 kg; Height 5 bp ft. 6 in. ; 14:03 Body Mass Index 27.44 (77.11 kg, 167.64 cm) bp ED Course: 13:40 Patient arrived in ED. ts1 13:42 [facility] j[facility]7 13:42 Jevon Hernandez MD is Attending Physician. jh7 14:05 Triage completed. bp 14:05 Arm band placed on. bp 15:11 XRAY Elbow RIGHT 3 view In Process Unspecified. EDMS 15:11 XRAY Forearm RIGHT In Process Unspecified. EDMS 15:11 XRAY Wrist RIGHT 3 view In Process Unspecified. EDMS 15:11 XRAY Hand RIGHT 3 View In Process Unspecified. EDMS 15:55 Julius Oreilly MD is Referral Physician. [facility] 16:05 Sling applied to right arm. ds4 Administered Medications: 14:10 Drug: [place] PO 10 mg-325 mg 1 tabs PO once Route: PO; bp Outcome: 15:57 Discharge ordered by . [facility] 16:23 Discharged to home via wheelchair, with family, 16:23 Condition: stable 16:23 Discharge instructions given to patient, family, Instructed on discharge instructions, follow up and referral plans. medication usage, Demonstrated understanding of instructions, follow-up care, medications, Prescriptions given X 1, 16:23 Patient left the ED. Signatures: Dispatcher [employer] EDMS Kevin Mcfarland ds4 Rosanna Sheth RN RN Dylan Lipscomb, RN RN Tanya Rojas, STORM WINDOW INSTALLER ST[employer] WINDOW INSTALLER [facility] Monalisa Rowan, PAS PAS ts1 Corrections: (The following items were deleted from the chart) 14:05 14:05 PMHx: fall/L hip fx; bp bp
[2023-03-10 16:50] VITALS: BP 162/66; TEMP 98.1; O2SAT 100
== END ==
LOC: ER 13:38
DX: S52.131A Displaced fracture of neck of right radius, initial encounter for closed fracture (principal); W01.0XXA Fall on same level from slipping, tripping and stumbling without subsequent striking against object, initial encounter; Z96.643 Presence of artificial hip joint, bilateral
CPT/HCPCS: 99283

== ENCOUNTER → 2023-04-07 | Emergency (ER) | payer OTHER ==
[~2023-04-07] MED LIST changes: +CEFTRIAXONE 2000 MG/VIAL ONE; +DIPHENHYDRAMINE 50 MG/ML VIAL ONE; -HYDROCODONE/APAP 10/325 TAB ONE; +KETOROLAC 30 MG/ML INJ ONE; +METOCLOPRAMIDE 10 MG/2mL INJ ONE; +NA CHLORIDE 0.9% 1,000 ML ONE; +dexAMETHasone 10 MG/ML VIAL ONE; +levoFLOXacin 750 MG TAB ONE
[2023-04-07 20:14] LABS: Absolute Lymphocytes (CBC) 1.6 K/uL (0.7-4.9); Hematocrit 34.8 % (36.0-45.0); Lymphocytes % 22.2 % (15.3-44.8); MCV 76.6 fL (80-100); MPV 9.4 fL (7.6-11.3); Platelets 224 thou/uL (152-406); RBC Red Blood Cell Count 4.54 M/uL (3.86-4.86)
[2023-04-07 20:27] LABS: Albumin 3.3 g/dL (3.4-5.0); Bilirubin Total 0.5 mg/dL (0.2-1.0); Protein, Total 7.8 g/dL (6.4-8.2)
[2023-04-07 20:38] LABS: Specific Gravity 1.018 (1.005-1.030); Urine Bacteria None Seen /HPF (<20); Urine Bilirubin NEGATIVE (Negative); Urine Blood Negative (Negative); Urine Clarity Turbid (Clear); Urine Color Light-Yellow (Yellow); Urine Glucose NEGATIVE (Negative); Urine Mucus Slight /HPF (None Seen); Urine Protein NEGATIVE (Negative); Urine RBC <5 /HPF (None Seen); Urine Urobilinogen Normal (Normal); Urine pH 6.5 (5.0-7.0)
--- NOTE | 2023-04-07 21:18 | RAD REPORT ---
EXAM DESCRIPTION: CT - Head Brain Wo Cont - 04/07/2023 9:00 pm CLINICAL HISTORY: Headache COMPARISON: July 2022 TECHNIQUE: Computed axial tomography of the head was obtained. IV contrast was not requested. All CT scans are performed using dose optimization technique as appropriate and may include automated exposure control or mA/KV adjustment according to patient size. FINDINGS: An intracranial bleed is not seen The ventricles are normal in caliber No extra-axial fluid collection is noted. No significant hypodensity within the brain. 10 millimeter partially calcified mass left parietal convexity unchanged. No surrounding edema. This probably represents a meningioma. 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
--- NOTE | 2023-04-07 21:26 | RAD REPORT ---
EXAM DESCRIPTION: Michelle Angio04/07/2023 9:00 pm CLINICAL HISTORY: Headache COMPARISON: None TECHNIQUE: 100 cc Isovue [address] angiogram of the neck was obtained. 3D MIPS reconstruction performed. All CT scans are performed using dose optimization technique as appropriate and may include automated exposure control or mA/KV adjustment according to patient size. FINDINGS: Mild plaque is present within the internal carotid arteries bilaterally. The common carotid and external carotid arteries are unremarkable Vertebral arteries unremarkable No dissection is seen. No high-grade stenosis IMPRESSION: No significant abnormality is displayed [place] Mild stenosis 0 to 49 % Moderate stenosis 50-69% Severe stenosis 70-99%
--- NOTE | 2023-04-07 21:26 | RAD REPORT ---
EXAM DESCRIPTION: CTHead angio04/07/2023 9:00 pm CLINICAL HISTORY: Headache COMPARISON: none TECHNIQUE: 100 cc Isovue [address] angiogram of the head was obtained. 3D MIPS reconstruction performed. All CT scans are performed using dose optimization technique as appropriate and may include automated exposure control or mA/KV adjustment according to patient size. FINDINGS: The basilar, anterior cerebral, middle cerebral and posterior cerebral arteries do not dem onstrate a significant stenosis Mild calcified plaque distal internal carotid arteries An aneurysm is not seen No large vessel occlusion IMPRESSION: No significant abnormality is displayed
--- NOTE | 2023-04-07 21:32 | RAD REPORT ---
EXAM DESCRIPTION: CT - C Spine Wo Con - 04/07/2023 9:03 pm CLINICAL HISTORY: Neck pain COMPARISON: None TECHNIQUE: Computed axial tomography of the cervical spine were obtained with sagittal and coronal r econstruction images generated and reviewed. All CT scans are performed using dose optimization technique as appropriate and may include automated exposure control or mA/KV adjustment according to patient size. FINDINGS: A cervical fracture is not seen. No dislocation. Mild posterior subluxation C5 on C6. Left posterior-lateral disc osteophyte complex C5-6 and C6-7. Moderate to marked narrowing left neura l foramina IMPRESSION: A cervical fracture is not seen. Left posterior-lateral disc osteophyte complexes C5-6 and C6-7 results in moderate to marked left for aminal stenosis If the patient continues to have symptoms to suggest spinal cord/spinal canal/ neural foraminal patho logy then MRI would be recommended.
--- NOTE | 2023-04-07 21:34 | ER ---
Nurse's Notes [facility] Name: Bernadine Dalal Age: 67 yrs Sex: Female : 1955 Arrival Date: 04/07/2023 Time: 18:43 Bed 18 Private MD: Patric Cole E Diagnosis: Headache;Chronic mastoiditis, left ear;Cervical disc disorder with radiculopathy, unspecified cervical region;Cervical disc disorder with radiculopathy Presentation: 04/07 19:02 Chief complaint: Patient states: I have been having a migraine for the past two days ha1 and nothing is helping. I have history of migraines. Coronavirus screen: Vaccine status: Patient reports receiving the 2nd dose of the covid vaccine. Moderna. Ebola Screen: No symptoms or risks identified at this time. Initial Sepsis Screen: Does the patient meet any 2 criteria? No. Patient's initial sepsis screen is negative. Does the patient have a suspected source of infection? No. Patient's initial sepsis screen is negative. Risk Assessment: Do you want to hurt yourself or someone else? Patient reports no desire to harm self or others. Onset of symptoms was April 07, 2023. 19:02 Method Of Arrival: Ambulatory ha1 19:02 Acuity: JODEE 3 ha1 Triage Assessment: 19:06 Headache History: The patient has had previous headaches and this one is similar to [facility] previous episodes. General: Appears uncomfortable, Behavior is calm, cooperative. Pain: Complains of pain in occipital area Pain does not radiate. Pain currently is 10 out of 10 on a pain scale. Neuro: Level of Consciousness is awake, alert, obeys commands, Oriented to person, place, time, situation. Cardiovascular: Capillary refill < 3 seconds Patient's skin is warm and dry. Respiratory: Airway is patent Respiratory effort is even, unlabored, Respiratory pattern is regular, symmetrical. Historical: - Allergies: 19:06 PENICILLINS; ha1 19:06 Vancomycin; ha1 - Home Meds: 19:06 fentanyl patch [Active]; ha1 - PMHx: 19:06 BRAIN CYST; Chronic pain; fall/L hip fx; Hypertensive disorder; Migraines; prolapsed ha1 uterus; SVT; UTI; - PSHx: 19:06 Left hip replacement; Right hip replacement; Total abdominal hysterectomy; ha1 - Immunization history:: Adult Immunizations up to date. - Social history:: Smoking status: Patient/guardian denies using tobacco, the patient reports quitting approximately 13 years ago. Screenin:10 [facility] ED Fall Risk Assessment (Adult) History of falling in the last 3 months, cp4 including since admission No falls in past 3 months (0 pts) Confusion or Disorientation No (0 pts) Intoxicated or Sedated No (0 pts) Impaired Gait No (0 pts) Mobility Assist Device Used No (0 pt) Altered Elimination No (0 pt) Score/Fall Risk Level 0 - 2 = Low Risk Oriented to surroundings, Maintained a safe environment, Educated pt \T\ family on fall prevention, incl call for assistance when getting out of bed, Assessed \T\ reinforced patient's understanding of fall precautions, Hourly rounding (assess needs \T\ fall precautionary measures) done. Abuse screen: Denies threats or abuse. Nutritional screening: No deficits noted. Tuberculosis screening: No symptoms or risk factors identified. Assessment: 19:10 General: Appears in no apparent distress. Behavior is calm, cooperative, appropriate cp4 for age. Pain:. Vital Signs: 19:02 BP 197 / 77; Pulse 85; Resp 17 S; Temp 98.2; Pulse Ox 100% on R/A; Weight 77.11 kg; ha1 Height 5 ft. 6 in. ; Pain 10/10; 20:00 BP 153 / 67; Pulse 66; Resp 18; Pulse Ox 100% ; cp4 21:00 BP 107 / 95; Pulse 63; Resp 18; Pulse Ox 100% ; cp4 19:02 Body Mass Index 27.44 (77.11 kg, 167.64 cm) ha1 19:02 Pain Scale: Adult ha1 [place] Coma Score: 20:11 Eye Response: spontaneous(4). Motor Response: obeys commands(6). Verbal Response: ruel oriented(5). Total: 15. ED Course: 18:46 Patient arrived in ED. mr 18:46 Patric Cole MD is Private Physician. mr 19:06 Triage completed. ha1 19:09 Verena Garg is Primary Nurse. cp4 19:10 Sae Miranda MD is Attending Physician. ruel 19:10 Bed in low position. Call light in reach. Side rails up X2. cp4 20:03 Comprehensive Metabolic Panel Sent. vc1 20:03 CBC with Diff Sent. vc1 20:21 Urinalysis w/ reflexes Sent. cp4 20:21 No provider procedures requiring assistance completed. Inserted saline lock: 22 gauge cp4 in right antecubital area, using aseptic technique. Blood collected. 21:02 CT Head Brain wo Cont In Process Unspecified. EDMS 21:02 CT Head Angio In Process Unspecified. EDMS 21:02 CT Neck Angio In Process Unspecified. EDMS 21:05 CT C Spine In Process Unspecified. EDMS 21:33 Patric Cole MD is Referral Physician. [facility] 21:33 Armaan Snowden MD is Referral Physician. [facility] 21:34 Referral Physician role handed off by Armaan nSowden MD [facility] 21:34 Nelia Russell MD is Referral Physician. [facility] 22:07 Provided Education on: mastoiditis. ha1 22:07 intact, bleeding controlled, No redness/swelling at site. Pressure dressing applied. ha1 Administered Medications: 20:20 Drug: metoCLOPramide IVP 10 mg IVP once; over 1 to 2 minutes Route: IVP; Site: right cp4 antecubital; 20:21 Drug: NS 0.9% IV 1000 ml IV at 1 bolus Per protocol; 1000 mL bolus Route: IV; Rate: 1 cp4 bolus; Site: right antecubital; 20:21 Drug: Ketorolac IVP 30 mg IVP once Route: IVP; Site: right antecubital; cp4 20:21 Drug: diphenhydrAMINE IVP 50 mg IVP once Route: IVP; Site: right antecubital; cp4 21:53 Drug: Rocephin - Rocephin (cefTRIAXone) IVPB 2 grams IVPB once over 30 mins; (mix in cp4 100 mL NS) Route: IVPB; Infused Over: 30 mins; Site: right antecubital; 21:53 Drug: LevOfloxacin PO 750 mg PO once Route: PO; cp4 21:53 Drug: Decadron - Dexamethasone IVP 10 mg IVP once Route: IVP; Site: right antecubital; cp4 Medication: 19:10 VIS not applicable for this client. cp4 Outcome: 21:33 Discharge ordered by . [facility] 22:07 Discharged to home ambulatory, ha 22:07 Condition: stable 22:07 Discharge instructions given to patient, Instructed on discharge instructions, follow up and referral plans. medication usage, Demonstrated understanding of instructions, follow-up care, medications, Prescriptions given X 3, 22:09 Patient left the ED. ha1 Signatures: Dispatcher [employer] EDSae Rosario MD MD cha Rivera, Mary, Reg Reg mr DesiremassimoErika RN RN vc1 Mary Ledbetter RN RN ha1 Verena Garg cp4 Corrections: (The following items were deleted from the chart) 19: 19:06 PMHx: fall/L hip fx; ha1 ha1 : 19:06 PMHx: fall/L hip fx; ha1 ha1 : 19:06 PMHx: fall/L hip fx; ha1 ha1 : 19:06 PMHx: fall/L hip fx; ha1 ha1 19: 19:06 PMHx: fall/L hip fx; ha1 ha1 19: 19:06 PMHx: fall/L hip fx; ha1 ha1 19: 19:06 PMHx: fall/L hip fx; ha1 ha1 19: 19:06 PMHx: fall/L hip fx; ha1 1
--- NOTE | 2023-04-07 21:34 | EDPHYS ---
Physician Documentation [facility] Name: Bernadine Dalal Age: 67 yrs Sex: Female : 1955 Arrival Date: 04/07/2023 Time: 18:43 Bed 18 Private MD: Patric Cole E ED Physician Sae Miranda HPI: 04/07 20:08 This 67 yrs old Female presents to ER via Ambulatory with complaints of ruel Headache, Neck pain. 20:08 The patient complains of pain to the right base of the skull. The patient describes the ruel headache as aching, constant. Onset: The symptoms/episode began/occurred 10 day(s) ago. Associated signs and symptoms: The patient has no apparent associated signs or symptoms. Historical: - Allergies: 19:06 PENICILLINS; ha1 19:06 Vancomycin; ha1 - Home Meds: 19:06 fentanyl patch [Active]; ha1 - PMHx: 19:06 BRAIN CYST; Chronic pain; fall/L hip fx; Hypertensive disorder; Migraines; prolapsed ha1 uterus; SVT; UTI; - PSHx: 19:06 Left hip replacement; Right hip replacement; Total abdominal hysterectomy; ha1 - Immunization history:: Adult Immunizations up to date. - Social history:: Smoking status: Patient/guardian denies using tobacco, the patient reports quitting approximately 13 years ago. ROS: 20:11 Constitutional: Negative for fever, chills, and weight loss, Eyes: Negative for injury, ruel pain, redness, and discharge, ENT: Negative for injury, pain, and discharge, Neck: Negative for injury, pain, and swelling, Cardiovascular: Negative for chest pain, palpitations, and edema, Respiratory: Negative for shortness of breath, cough, wheezing, and pleuritic chest pain, Abdomen/GI: Negative for abdominal pain, nausea, vomiting, diarrhea, and constipation, Back: Negative for injury and pain, : Negative for injury, bleeding, discharge, and swelling, MS/Extremity: Negative for injury and deformity, Skin: Negative for injury, rash, and discoloration, Psych: Negative for depression, anxiety, suicide ideation, homicidal ideation, and hallucinations, Allergy/Immunology: Negative for hives, rash, and allergies, Endocrine: Negative for neck swelling, polydipsia, polyuria, polyphagia, and marked weight changes, Hematologic/Lymphatic: Negative for swollen nodes, abnormal bleeding, and unusual bruising, 20:11 Neuro: Positive for headache, Exam: 20:11 Constitutional: This is a well developed, well nourished patient who is awake, alert, ruel and in no acute distress. Eyes: Pupils equal round and reactive to light, extra-ocular motions intact. Lids and lashes normal. Conjunctiva and sclera are non-icteric and not injected. Cornea within normal limits. Periorbital areas with no swelling, redness, or edema. ENT: Nares patent. No nasal discharge, no septal abnormalities noted. Tympanic membranes are normal and external auditory canals are clear. Oropharynx with no redness, swelling, or masses, exudates, or evidence of obstruction, uvula midline. Mucous membranes moist. Neck: Trachea midline, no thyromegaly or masses palpated, and no cervical lymphadenopathy. Supple, full range of motion without nuchal rigidity, or vertebral point tenderness. No Meningismus. Chest/axilla: Normal chest wall appearance and motion. Nontender with no deformity. No lesions are appreciated. Cardiovascular: Regular rate and rhythm with a normal S1 and S2. No gallops, murmurs, or rubs. Normal PMI, no JVD. No pulse deficits. Respiratory: Lungs have equal breath sounds bilaterally, clear to auscultation and percussion. No rales, rhonchi or wheezes noted. No increased work of breathing, no retractions or nasal flaring. Abdomen/GI: Soft, non-tender, with normal bowel sounds. No distension or tympany. No guarding or rebound. No evidence of tenderness throughout. Back: No spinal tenderness. No costovertebral tenderness. Full range of motion. Female : Normal external genitalia. Skin: Warm, dry with normal turgor. Normal color with no rashes, no lesions, and no evidence of cellulitis. MS/ Extremity: Pulses equal, no cyanosis. Neurovascular intact. Full, normal range of motion. Neuro: Awake and alert, GCS 15, oriented to person, place, time, and situation. Cranial nerves II-XII grossly intact. Motor strength 5/5 in all extremities. Sensory grossly intact. Cerebellar exam normal. Normal gait. Psych: Awake, alert, with orientation to person, place and time. Behavior, mood, and affect are within normal limits. 20:11 Head/face: Noted is tenderness, that is moderate, of the right base of the skull, Vital Signs: 19:02 BP 197 / 77; Pulse 85; Resp 17 S; Temp 98.2; Pulse Ox 100% on R/A; Weight 77.11 kg; ha1 Height 5 ft. 6 in. ; Pain 10/10; 20:00 BP 153 / 67; Pulse 66; Resp 18; Pulse Ox 100% ; cp4 21:00 BP 107 / 95; Pulse 63; Resp 18; Pulse Ox 100% ; cp4 19:02 Body Mass Index 27.44 (77.11 kg, 167.64 cm) ha1 19:02 Pain Scale: Adult ha1 [place] Coma Score: 20:11 Eye Response: spontaneous(4). Motor Response: obeys commands(6). Verbal Response: ruel oriented(5). Total: 15. MDM: 19:10 Patient medically screened. ruel 20:11 Differential diagnosis: cluster headache, intracerebral hemorrhage, migraine, neoplasm, ruel otitis, subarachnoid bleed, subdural hematoma, tension headache, trigeminal neuralgia, vasomotor headache. Data reviewed: vital signs, nurses notes, lab test result(s), radiologic studies, CT scan. Consideration of Admission/Observation Escalation of care including admission/observation considered. I considered the following discharge prescriptions or medication management in the emergency department I discussed and recommended Over The Counter medications. Independent interpretation of the following test(s) in the Emergency Department CT Scan: My interpretation is ct head. Test considered but Not performed: MRI: no mri brain. Historians other than the Patient: pt well informed. Care significantly affected by the following chronic conditions: Hypertension, pain, falls, migraine. 04/07 19:57 Order name: CBC with Diff; Complete Time: 20:49 [facility] 04/07 19:57 Order name: Comprehensive Metabolic Panel; Complete Time: 20:49 [facility] 04/07 19:57 Order name: Urinalysis w/ reflexes; Complete Time: 20:49 [facility] 04/07 19:57 Order name: CT Head Brain wo Cont; Complete Time: 21:29 [facility] 04/07 19:57 Order name: CT Head Angio; Complete Time: 21:29 [facility] 04/07 19:57 Order name: CT Neck Angio; Complete Time: 21:29 [facility] 04/07 20:11 Order name: CT C Spine; Complete Time: 21:42 ruel Administered Medications: 20:20 Drug: metoCLOPramide IVP 10 mg IVP once; over 1 to 2 minutes Route: IVP; Site: right cp4 antecubital; 20:21 Drug: NS 0.9% IV 1000 ml IV at 1 bolus Per protocol; 1000 mL bolus Route: IV; Rate: 1 cp4 bolus; Site: right antecubital; 20:21 Drug: Ketorolac IVP 30 mg IVP once Route: IVP; Site: right antecubital; cp4 20:21 Drug: diphenhydrAMINE IVP 50 mg IVP once Route: IVP; Site: right antecubital; cp4 21:53 Drug: Rocephin - Rocephin (cefTRIAXone) IVPB 2 grams IVPB once over 30 mins; (mix in cp4 100 mL NS) Route: IVPB; Infused Over: 30 mins; Site: right antecubital; 21:53 Drug: LevOfloxacin PO 750 mg PO once Route: PO; cp4 21:53 Drug: Decadron - Dexamethasone IVP 10 mg IVP once Route: IVP; Site: right antecubital; cp4 Disposition Summary: 04/07/23 21:33 Discharge Ordered Notes: Location: Home ruel Problem: new ruel Symptoms: have improved ruel Condition: Stable ruel Diagnosis - Headache ruel - Chronic mastoiditis, left ear ruel - Cervical disc disorder with radiculopathy, unspecified cervical region ruel - Cervical disc disorder with radiculopathy ruel Followup: ruel - With: Patric Cole MD - When: 2 - 3 days - Reason: Recheck today's complaints, Continuance of care, Re-evaluation by your physician Followup: ruel - With: Armaan Snowden MD - When: 2 - 3 days - Reason: Recheck today's complaints, Re-evaluation by your physician Followup: ruel - With: Nelia Russell MD - When: 2 - 3 days - Reason: Recheck today's complaints, Re-evaluation by your physician Discharge Instructions: - Discharge Summary Sheet ruel - Cervical Radiculopathy ruel - General Headache Without Cause ruel - Mastoiditis, Pediatric ruel - General Headache Without Cause, [id number] ruel - Cervical Radiculopathy, [id number] ruel Forms: - Medication Reconciliation Form ruel - Thank You Letter ruel - Antibiotic Education ruel - Prescription Opioid Use [facility] - Patient Portal Instructions [facility] - Leadership Thank You Letter [facility] Prescriptions: - dexamethasone 2 mg Oral tablet - take 1 tablet ORAL route every 12 hours; 10 tablet; Refills: 0, Product [facility] Selection Permitted - Ibuprofen 600 mg Oral Tablet - take 1 tablet ORAL route every 6 hours As needed take with food; 30 tablet; [facility] Refills: 0, Product Selection Permitted - Zofran 4 mg Oral Tablet - take 1 tablet ORAL route every 12 hours As needed; 20 tablet; Refills: 0, [facility] Product Selection Permitted - levofloxacin 500 mg Oral tablet - take 1 tablet ORAL route once daily for 7 days; 10 tablet; Refills: 0, Product [facility] Selection Permitted Signatures: Dispatcher [employer] EDSae Rosario MD MD cha Ayala, Heidy RN RN haVerena Peters cp4 Corrections: (The following items were deleted from the chart) 19:07 19:06 PMHx: fall/L hip fx; ha1 ha1 19: 19:06 PMHx: fall/L hip fx; ha1 ha1 19: 19:06 PMHx: fall/L hip fx; ha1 ha1 19:07 19:06 PMHx: fall/L hip fx; ha1 ha1 19:07 19:06 PMHx: fall/L hip fx; ha1 ha1 19:07 19:06 PMHx: fall/L hip fx; ha1 ha1 19:07 19:06 PMHx: fall/L hip fx; ha1 ha1 19:07 19:06 PMHx: fall/L hip fx; ha1 ha1
[2023-04-07 22:30] VITALS: TEMP 98.2; O2SAT 100
[2023-04-07 22:45] VITALS: BP 107/95
== END ==
LOC: ER 18:43
DX: R51.9 Headache, unspecified (principal); H70.12 Chronic mastoiditis, left ear; M50.10 Cervical disc disorder with radiculopathy, unspecified cervical region; Z88.0 Allergy status to penicillin; Z88.1 Allergy status to other antibiotic agents; G93.0 Cerebral cysts; G89.29 Other chronic pain; I10 Essential (primary) hypertension
CPT/HCPCS: 85025; 81001; 36415; 80053; 70450; 72125; 70496; 70498; Q9967; J2765; J1200; J1100; J0696; J7030

== ENCOUNTER → 2023-04-26 | Emergency (ER) | payer OTHER ==
[~2023-04-26] MED LIST changes: -CEFTRIAXONE 2000 MG/VIAL ONE; -DIPHENHYDRAMINE 50 MG/ML VIAL ONE; -KETOROLAC 30 MG/ML INJ ONE; +METHYLPREDNISOLONE 125 MG INJ ONE; -METOCLOPRAMIDE 10 MG/2mL INJ ONE; +MORPHINE 4 MG/ML SYR ONE; -NA CHLORIDE 0.9% 1,000 ML ONE; +ONDANSETRON 4 MG (ODT) TAB ONE; -dexAMETHasone 10 MG/ML VIAL ONE; -levoFLOXacin 750 MG TAB ONE
--- OUTSIDE RECORDS SUMMARY | 2023-04-26 13:10 | XMS REPORT | Continuity of Care Document ---
Author Name Unknown Address [address] [facility] [place] [address] [facility] Address [address] [facility] [address] [place] [address] Care Team Providers Care Load Mixer Name Role Phone Patric Cole Primary Care Physician [phone] Patric Cole Attending Clinician Unavailable Andreas Linares Attending Clinician Unavailable STEFANIE GOODMAN Attending Clinician Unavailable [place]_Sharron Attending Clinician Unavail able Vineet Weeks Attending Clinician Unavailable Maricarmen Nguyen MD Attending Clinician [phone] Doctor Unassigned, Silas Attending Clinician U navailable [email or web address]_S Attending Clinician Unavaila MARICARMEN Cardoso Attending Clinician Unavailable Fabricio Cartagena Attending Clinician Unavailabl e Fabricio Cartagena Attending Clinician DES GILLETTE Attending Clinician Unavailable Green [employer], Des Attending Clinician SHANNAN ROY Attending Clinician Unavailable MARCK HANNA Attending Clinician Unavailab MARCK Mariscal Attending Clinician Unavailab jessika Pugh, [facility] Attending Clinician Unavailabl e Radiology Attending Clinician Unavailable ERICA CABA Attending Clinician Unavailable ERICA CABA Attending Clinician Unavailable RADIOLOGY Attending Clinician Unavailable Erica Caba DO Attending Clinician Gramm [employer], Sana A Attending Clinician [phone] GRAMM, SANA A Attending Clinician Unavailable Johanny Kaplan MD Attending Clinician [phone] GRACY MCKEON Attending Clinician Unavailab JOHANNY Moore Attending Clinician Unavailable Tri Chin MD Attending Clinician [phone] TRI CHIN Attending Clinician Unavailbert castellon Nurse, [facility] Attending Clinician UnaPaul Donovan DO Attending Clinician [phone] Osito Rodriguez DO Attending Clinician [phone] Geovany Carbone MD Attending Clinician [phone] Sergio CONWAY, Oscar Rogers Attending Clinician [phone] Kendra Oden MD Attending Clinician [phone] GEOVANY CARBONE Attending Clinician Unavailable ELIEL SAUCEDA Attending Clinician Unavail able KENDRA ODEN Attending Clinician Unavailable Patric Cole Admitting Clinician Unavailable Bernice Admitting Clinician Unavail able Vineet Weeks Admitting Clinician Unavailable [email or web address]_S Admitting Clinician Unavaila Fabricio Ledesma Admitting Clinician Unavailabl MARICARMEN Dooley Admitting Clinician Unavailable SHANNAN ROY Admitting Clinician Unavailable Payers Payer Name Policy Type Policy Number Effective Date Expirati on Date Source [facility] MEDICAID STAR [id number] 2021 00:00:00 [facility] PL[facility] STAR PLUS [id number] 2020 00:00:00 [facility] [id number] 00:00:00 [facility] [place] STAR PLUS [id number] 00:00:00 [place] [id number] 2021 00:00:00 [facility] [place]MEDICAID REPLACEMENT - HMO) [id number] 2023 00:00:00 [place]/ADVANTA GE - HMO) [id number] 2022 00:00:00 2023 00:00:00 [place] [id number] Problems Condition Name Condition Details Condition Category Status Onset Date Resolution Date Last Treatment Date Treating Clinician Comments Source Mechanical complicati on associated with orthopedic device Mechanical Complicati on Associated with Orthopedic Device Problem Active 1-24 00:00: 00 [facility] Periprosth etic fracture Periprosth etic Fracture Problem Active 2022-03 0-11 00:00: 00 [facility] Subtrochan teric fracture of left femur Subtrochan teric Fracture of Left Femur Problem Active 2022-03 0-11 00:00: 00 [facility] Closed fracture of shaft of right femur Closed Fracture of Shaft of Right Femur Problem Active 4-05 00:00: 00 [facility] Osteoarthr itis of right hip joint Osteoarthr itis of Right Hip Joint Problem Active 2-16 00:00: 00 [facility] 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 Pain of left hip joint Pain [...] 00 [facility] [id number] Primary osteoarthr itis of right shoulder Problem Active [facility] [id number] Hip joint replacemen t by other means Problem Active [facility] [id number] Recurrent UTI Problem Active [facility] [id number] Hematuria, unspecifie d type Problem Active [facility] Allergies, Adverse Reactions, Alerts Allergy Name Allergy Type Status Severity Reaction(s) Onset Date Inactive Date Treating Clinician Comments Source Iodinate d Contrast Media DA Active IN "INSIDES ON FIRE", HYPERVENTILA MANUEL 04-19 00:00: 00 [facility] Penicill ins DA Active SV convulsions 04-19 00:00: 00 [facility] vancomyc in DA Active IN HIVES, SKIN PEELED OFF, EXTREME RED SKIN 04-19 00:00: 00 [facility] Iodinate d Contrast Media DA Active IN "INSIDES ON FIRE", HYPERVENTILA MANUEL 04-04 00:00: 00 [facility] Penicill ins DA Active SV convulsions 04-04 00:00: 00 [facility] vancomyc in DA Active IN HIVES, SKIN PEELED OFF, EXTREME RED SKIN 04-04 00:00: 00 [facility] OL DRUG INGREDI Active Other-Cmnt 2021-03 00:00: 00 [facility] Metoprol ol Propensi ty to adverse reaction s Active Other - See comments 2021-03 00:00: 00 migraine [facility] Vancomyc in Propensi ty to adverse reaction s to drug Active Other - See comments 2016-03 00:00: 00 [facility] VANCOMYC IN DRUG INGREDI Active High Other-Cmnt 2016-03 00:00: 00 [facility] Penicill in Propensi ty to adverse reaction s Active Other - See comments 2015-03 00:00: 00 [facility] PENICILL IN DRUG INGREDI Active Other-Cmnt 2015-03 00:00: 00 [facility] Iodinate d Contrast Media DA Active IN "INSIDES ON FIRE", HYPERVENTILA MANUEL 2014-03 00:00: 00 [facility] Penicill ins DA Active SV convulsions 2014-03 00:00: 00 [facility] vancomyc in DA Active IN HIVES, SKIN PEELED OFF, EXTREME RED SKIN 2014-03 00:00: 00 [facility] PENICILL IN Allergy to substanc e Active 03-19 00:00: 00 [facility] Penicill in Penicill in Active Unknown [facility] Vancomyc in Vancomyc in Active Unknown [facility] Vancomyc in Allergy to substanc e Active Severe Other [facility] Social History Social Habit Start Date Stop Date Quantity Comments Source [facility] of Tobacco Use [facility] Sex Assigned At [facility] Exposure to SARS-CoV-2 (event) 2021-12-19 00:00:00 2021-12-29 12:30:00 Not sure [facility] Alcohol intake 2021-10-20 00:00:00 2021-10-20 00:00:00 Lifetime non-drinker (finding) [facility] Tobacco use and exposure 2021-05-09 00:00:00 2021-05-09 00:00:00 Smokeless tobacco non-user [facility] Cigarettes smoked current (pack per day) - Reported 2021-05-09 00:00:00 2021-05-09 00:00:00 [facility] Cigarette pack-years 2021-05-09 00:00:00 2021-05-09 00:00:00 [facility] History of Social function 2021-05-09 00:00:00 2021-05-09 00:00:00 [facility] Smoking Status Start Date Stop Date Source Never Smoker [facility] Former Smoker 2021-09-06 00:00:00 2021-09-06 00:00:00 [facility] Medications Ordered Medication Name Filled Medication Name Start Date Stop Date Current Medication? Ordering Clinician Indication Dosage Frequency Signature (SIG) Comments Components Source phenazopyri dine (PYRIDIUM) 200 mg tablet 10-20 00:00: 00 Yes [id number] 200mg Take 1 tablet by mouth every 8 (eight) hours as needed for Pain. [facility] phenazopyri dine (PYRIDIUM) 200 mg tablet 10-20 00:00: 00 Yes [id number] 200mg Take 1 tablet by mouth every 8 (eight) hours as needed for Pain. [facility] phenazopyri dine (PYRIDIUM) 200 mg tablet 10-20 00:00: 00 Yes [id number] 200mg Take 1 tablet by mouth every 8 (eight) hours as needed for Pain. [facility] phenazopyri dine (PYRIDIUM) 200 mg tablet 2021-0 8-11 00:00: 00 Yes [id number] 200mg Take 1 tablet by mouth every 8 (eight) hours as needed for Pain. [facility] phenazopyri dine (PYRIDIUM) 200 mg tablet 2021-0 8-11 00:00: 00 Yes [id number] 200mg Take 1 tablet by mouth every 8 (eight) hours as needed for Pain. [facility] phenazopyri dine (PYRIDIUM) 200 mg tablet 2021-0 8-11 00:00: 00 Yes [id number] 200mg Take 1 tablet by mouth every 8 (eight) hours as needed for Pain. [facility] phenazopyri dine (PYRIDIUM) 200 mg tablet 2021-0 8-11 00:00: 00 Yes [id number] 200mg Take 1 tablet by mouth every 8 (eight) hours as needed for Pain. [facility] phenazopyri dine (PYRIDIUM) 200 mg tablet 2021-0 8-11 00:00: 00 Yes [id number] 200mg Take 1 tablet by mouth every 8 (eight) hours as needed for Pain. [facility] phenazopyri dine (PYRIDIUM) 200 mg tablet 2021-0 8-11 00:00: 00 Yes [id number] 200mg Take 1 tablet by mouth every 8 (eight) hours as needed for Pain. [facility] phenazopyri dine (PYRIDIUM) 200 mg tablet 2021-0 8-11 00:00: 00 Yes [id number] 200mg Take 1 tablet by mouth every 8 (eight) hours as needed for Pain. [facility] phenazopyri dine (PYRIDIUM) 200 mg tablet 2-0 8-11 00:00: 00 Yes [id number] 200mg Take 1 tablet by mouth every 8 (eight) hours as needed for Pain. [facility] phenazopyri dine (PYRIDIUM) 200 mg tablet 2021-0 8-11 00:00: 00 Yes [id number] 200mg Take 1 tablet by mouth every 8 (eight) hours as needed for Pain. [facility] phenazopyri dine (PYRIDIUM) 200 mg tablet 10-20 00:00: 00 Yes [id number] 200mg Take 1 tablet by mouth every 8 (eight) hours as needed for Pain. [facility] phenazopyri dine (PYRIDIUM) 200 mg tablet 10-20 00:00: 00 Yes [id number] 200mg Take 1 tablet by mouth every 8 (eight) hours as needed for Pain. [facility] phenazopyri dine (PYRIDIUM) 200 mg tablet 10-20 00:00: 00 Yes [id number] 200mg Take 1 tablet by mouth every 8 (eight) hours as needed for Pain. [facility] cephALEXin 500 mg capsule 10-20 00:00: 00 10-28 04:59 :00 No [id number] 500mg Take 1 capsule by mouth in the morning and 1 capsule in the evening. Do all this for 7 days. [facility] metoprolol succinate XL 25 mg 24 hr tablet 09-21 00:00: 00 Yes [id number] 25mg Take 1 tablet by mouth in the morning and 1 tablet in the evening. [facility] metoprolol succinate XL 25 mg 24 hr tablet 09-21 00:00: 00 Yes [id number] 25mg Take 1 tablet by mouth in the morning and 1 tablet in the evening. [facility] metoprolol succinate XL 25 mg 24 hr tablet 09-21 00:00: 00 Yes [id number] 25mg Take 1 tablet by mouth in the morning and 1 tablet in the evening. [facility] metoprolol succinate XL 25 mg 24 hr tablet 09-21 00:00: 00 Yes [id number] 25mg Take 1 tablet by mouth in the morning and 1 tablet in the evening. [facility] metoprolol succinate XL 25 mg 24 hr tablet 09-21 00:00: 00 Yes [id number] 25mg Take 1 tablet by mouth in the morning and 1 tablet in the evening. [facility] metoprolol succinate XL 25 mg 24 hr tablet 09-21 00:00: 00 Yes [id number] 25mg Take 1 tablet by mouth in the morning and 1 tablet in the evening. [facility] metoprolol succinate XL 25 mg 24 hr tablet 2-0 7-13 00:00: 00 Yes [id number] 25mg Take 1 tablet by mouth in the morning and 1 tablet in the evening. [facility] metoprolol succinate XL 25 mg 24 hr tablet 2-0 7-13 00:00: 00 Yes [id number] 25mg Take 1 tablet by mouth in the morning and 1 tablet in the evening. [facility] metoprolol succinate XL 25 mg 24 hr tablet 2-0 7-13 00:00: 00 Yes [id number] 25mg Take 1 tablet by mouth in the morning and 1 tablet in the evening. [facility] metoprolol succinate XL 25 mg 24 hr tablet 2021-0 7-13 00:00: 00 Yes [id number] 25mg Take 1 tablet by mouth in the morning and 1 tablet in the evening. [facility] metoprolol succinate XL 25 mg 24 hr tablet 2021-0 - 00:00: 00 Yes [id number] 25mg Take 1 tablet by mouth in the morning and 1 tablet in the evening. [facility] metoprolol succinate XL 25 mg 24 hr tablet 2021-0 09-21 00:00: 00 Yes [id number] 25mg Take 1 tablet by mouth in the morning and 1 tablet in the evening. [facility] metoprolol succinate XL 25 mg 24 hr tablet 2021-0 -13 00:00: 00 Yes [id number] 25mg Take 1 tablet by mouth in the morning and 1 tablet in the evening. [facility] metoprolol succinate XL 25 mg 24 hr tablet 2-0 -13 00:00: 00 Yes [id number] 25mg Take 1 tablet by mouth in the morning and 1 tablet in the evening. [facility] metoprolol succinate XL 25 mg 24 hr tablet 2-0 7-13 00:00: 00 Yes [id number] 25mg Take 1 tablet by mouth in the morning and 1 tablet in the evening. [facility] metoprolol succinate XL 25 mg 24 hr tablet 2-0 7-13 00:00: 00 Yes [id number] 25mg Take 1 tablet by mouth in the morning and 1 tablet in the evening. [facility] it[facility] amLODIPine 5 mg tablet 05-09 10:44: 43 05-09 00:00 :00 No 5mg Take 5 mg by mouth daily. [facility] amLODIPine 5 mg tablet 05-09 10:44: 43 05-09 00:00 :00 No 5mg Take 5 mg by mouth daily. [facility] nitroglycer in 0.4 mg sublingual tablet 05-09 00:00: [id number] 1 tablet under the tongue every 5 (five) minutes as needed for Chest pain. [facility] tablet 05-09 00:00: 00 Yes [id number] 10mg Take 1 tablet by mouth daily. [facility] nitroglycer in 0.4 mg sublingual tablet 05-09 00:00: [id number] 1 tablet under the tongue every 5 (five) minutes as needed for Chest pain. [facility] mg tablet 05-09 00:00: 00 Yes [id number] 10mg Take 1 tablet by mouth daily. [facility] nitroglycer in 0.4 mg sublingual tablet 05-09 00:00: [id number] 1 tablet under the tongue every 5 (five) minutes as needed for Chest pain. [facility] amLODIPine 10 mg tablet 05-09 00:00: 00 Yes [id number] 10mg Take 1 tablet by mouth daily. [facility] nitroglycer in 0.4 mg sublingual tablet 0 05-09 00:00: [id number] 1 tablet under the tongue every 5 (five) minutes as needed for Chest pain. [facility] amLODIPine 10 mg tablet 0 05-09 00:00: 00 Yes [id number] 10mg Take 1 tablet by mouth daily. [facility] nitroglycer in 0.4 mg sublingual tablet 0 05-09 00:00: [id number] 1 tablet under the tongue every 5 (five) minutes as needed for Chest pain. [facility] amLODIPine 10 mg tablet 0 05-09 00:00: 00 Yes [id number] 10mg Take 1 tablet by mouth daily. [facility] nitroglycer in 0.4 mg sublingual tablet 0 05-09 00:00: [id number] 1 tablet under the tongue every 5 (five) minutes as needed for Chest pain. [facility] amLODIPine 10 mg tablet 0 05-09 00:00: 00 Yes [id number] 10mg Take 1 tablet by mouth daily. [facility] nitroglycer in 0.4 mg sublingual tablet 0 05-09 00:00: [id number] 1 tablet under the tongue every 5 (five) minutes as needed for Chest pain. [facility] amLODIPine 10 mg tablet 0 05-09 00:00: 00 Yes [id number] 10mg Take 1 tablet by mouth daily. [facility] nitroglycer in 0.4 mg sublingual tablet 0 05-09 00:00: [id number] 1 tablet under the tongue every 5 (five) minutes as needed for Chest pain. [facility] amLODIPine 10 mg tablet 0 05-09 00:00: 00 Yes [id number] 10mg Take 1 tablet by mouth daily. [facility] nitroglycer in 0.4 mg sublingual tablet 0 05-09 00:00: [id number] 1 tablet under the tongue every 5 (five) minutes as needed for Chest pain. [facility] amLODIPine 10 mg tablet 0 05-09 00:00: 00 Yes [id number] 10mg Take 1 tablet by mouth daily. [facility] nitroglycer in 0.4 mg sublingual tablet 0 05-09 00:00: [id number] 1 tablet under the tongue every 5 (five) minutes as needed for Chest pain. [facility] amLODIPine 10 mg tablet 2021-0 05-09 00:00: 00 Yes [id number] 10mg Take 1 tablet by mouth daily. [facility] nitroglycer in 0.4 mg sublingual tablet 0 05-09 00:00: [id number] 1 tablet under the tongue every 5 (five) minutes as needed for Chest pain. [facility] amLODIPine 10 mg tablet 0 28 00:00: 00 Yes [id number] 10mg Take 1 tablet by mouth daily. [facility] nitroglycer in 0.4 mg sublingual tablet 0 28 00:00: [id number] 1 tablet under the tongue every 5 (five) minutes as needed for Chest pain. [facility] amLODIPine 10 mg tablet 2021-0 05-09 00:00: 00 Yes [id number] 10mg Take 1 tablet by mouth daily. [facility] nitroglycer in 0.4 mg sublingual tablet 0 05-09 00:00: [id number] 1 tablet under the tongue every 5 (five) minutes as needed for Chest pain. [facility] amLODIPine 10 mg tablet 0 05-09 00:00: 00 Yes [id number] 10mg Take 1 tablet by mouth daily. [facility] nitroglycer in 0.4 mg sublingual tablet 0 05-09 00:00: [id number] 1 tablet under the tongue every 5 (five) minutes as needed for Chest pain. [facility] amLODIPine 10 mg tablet 0 05-09 00:00: 00 Yes [id number] 10mg Take 1 tablet by mouth daily. [facility] nitroglycer in 0.4 mg sublingual tablet 2021-0 28 00:00: [id number] 1 tablet under the tongue every 5 (five) minutes as needed for Chest pain. [facility] amLODIPine 10 mg tablet 2021-0 28 00:00: 00 Yes [id number] 10mg Take 1 tablet by mouth daily. [facility] nitroglycer in 0.4 mg sublingual tablet 2021-0 28 00:00: [id number] 1 tablet under the tongue every 5 (five) minutes as needed for Chest pain. [facility] amLODIPine 10 mg tablet 05-09 00:00: 00 Yes [id number] 10mg Take 1 tablet by mouth daily. [facility] nitroglycer in 0.4 mg sublingual tablet 05-09 00:00: [id number] 1 tablet under the tongue every 5 (five) minutes as needed for Chest pain. [facility] amLODIPine 10 mg tablet 05-09 00:00: 00 Yes [id number] 10mg Take 1 tablet by mouth daily. [facility] nitroglycer in 0.4 mg sublingual tablet 05-09 00:00: [id number] 1 tablet under the tongue every 5 (five) minutes as needed for Chest pain. [facility] amLODIPine 10 mg tablet 05-09 00:00: 00 Yes [id number] 10mg Take 1 tablet by mouth daily. [facility] ALPRAZolam 1 mg tablet 2020-03 0 00:00: 00 Yes [facility] ALPRAZolam 1 mg tablet 2020-03 0 00:00: 00 Yes [facility] ALPRAZolam 1 mg tablet 2020-03 0 00:00: 00 Yes [facility] ALPRAZolam 1 mg tablet 2020-03 0-25 00:00: 00 Yes [facility] ALPRAZolam 1 mg tablet 2020-03 0-25 00:00: 00 Yes [facility] ALPRAZolam 1 mg tablet 2020-03 0-25 00:00: 00 Yes [facility] ALPRAZolam 1 mg tablet 2020-03 0-25 00:00: 00 Yes [facility] ALPRAZolam 1 mg tablet 2020-03 0-25 00:00: 00 Yes [facility] ALPRAZolam 1 mg tablet 2020-03 0-25 00:00: 00 Yes [facility] ALPRAZolam 1 mg tablet 2020-03 0-25 00:00: 00 Yes [facility] ALPRAZolam 1 mg tablet 2020-03 0-25 00:00: 00 Yes [facility] ALPRAZolam 1 mg tablet 2020-03 0-25 00:00: 00 Yes [facility] ALPRAZolam 1 mg tablet 2020-03 0-25 00:00: 00 Yes [facility] ALPRAZolam 1 mg tablet 2020-03 0-25 00:00: 00 Yes [facility] ALPRAZolam 1 mg tablet 2020-03 0-25 00:00: 00 Yes [facility] ALPRAZolam 1 mg tablet 2020-03 0-25 00:00: 00 Yes [facility] ALPRAZolam 1 mg tablet 2020-03 0-25 00:00: 00 Yes [facility] ALPRAZolam 1 mg tablet 2020-03 0-25 00:00: 00 Yes [facility] estradioL (ESTRACE) 0.01 % (0.1 mg/gram) vaginal cream 10-11 00:00: 00 Yes [id number] Apply 1g vaginally at bedtime every night for 2 weeks and then apply 0.5 g vaginally at bedtime 2-3 times per week [facility] estradioL (ESTRACE) 0.01 % (0.1 mg/gram) vaginal cream 10-11 00:00: 00 Yes [id number] Apply 1g vaginally at bedtime every night for 2 weeks and then apply 0.5 g vaginally at bedtime 2-3 times per week [facility] estradioL (ESTRACE) 0.01 % (0.1 mg/gram) vaginal cream 10-11 00:00: 00 Yes [id number] Apply 1g vaginally at bedtime every night for 2 weeks and then apply 0.5 g vaginally at bedtime 2-3 times per week [facility] estradioL (ESTRACE) 0.01 % (0.1 mg/gram) vaginal cream 10-11 00:00: 00 Yes [id number] Apply 1g vaginally at bedtime every night for 2 weeks and then apply 0.5 g vaginally at bedtime 2-3 times per week [facility] estradioL (ESTRACE) 0.01 % (0.1 mg/gram) vaginal cream 10-11 00:00: 00 Yes [id number] Apply 1g vaginally at bedtime every night for 2 weeks and then apply 0.5 g vaginally at bedtime 2-3 times per week [facility] estradioL (ESTRACE) 0.01 % (0.1 mg/gram) vaginal cream 10-11 00:00: 00 Yes [id number] Apply 1g vaginally at bedtime every night for 2 weeks and then apply 0.5 g vaginally at bedtime 2-3 times per week [facility] estradioL (ESTRACE) 0.01 % (0.1 mg/gram) vaginal cream 10-11 00:00: 00 Yes [id number] Apply 1g vaginally at bedtime every night for 2 weeks and then apply 0.5 g vaginally at bedtime 2-3 times per week [facility] estradioL (ESTRACE) 0.01 % (0.1 mg/gram) vaginal cream 10-11 00:00: 00 Yes [id number] Apply 1g vaginally at bedtime every night for 2 weeks and then apply 0.5 g vaginally at bedtime 2-3 times per week [facility] estradioL (ESTRACE) 0.01 % (0.1 mg/gram) vaginal cream 10-11 00:00: 00 Yes [id number] Apply 1g vaginally at bedtime every night for 2 weeks and then apply 0.5 g vaginally at bedtime 2-3 times per week [facility] estradioL (ESTRACE) 0.01 % (0.1 mg/gram) vaginal cream 10-11 00:00: 00 Yes [id number] Apply 1g vaginally at bedtime every night for 2 weeks and then apply 0.5 g vaginally at bedtime 2-3 times per week [facility] estradioL (ESTRACE) 0.01 % (0.1 mg/gram) vaginal cream 10-11 00:00: 00 Yes [id number] Apply 1g vaginally at bedtime every night for 2 weeks and then apply 0.5 g vaginally at bedtime 2-3 times per week [facility] estradioL (ESTRACE) 0.01 % (0.1 mg/gram) vaginal cream 10-11 00:00: 00 Yes [id number] Apply 1g vaginally at bedtime every night for 2 weeks and then apply 0.5 g vaginally at bedtime 2-3 times per week [facility] estradioL (ESTRACE) 0.01 % (0.1 mg/gram) vaginal cream 10-11 00:00: 00 Yes [id number] Apply 1g vaginally at bedtime every night for 2 weeks and then apply 0.5 g vaginally at bedtime 2-3 times per week [facility] estradioL (ESTRACE) 0.01 % (0.1 mg/gram) vaginal cream 10-11 00:00: 00 Yes [id number] Apply 1g vaginally at bedtime every night for 2 weeks and then apply 0.5 g vaginally at bedtime 2-3 times per week [facility] estradioL (ESTRACE) 0.01 % (0.1 mg/gram) vaginal cream 10-11 00:00: 00 Yes [id number] Apply 1g vaginally at bedtime every night for 2 weeks and then apply 0.5 g vaginally at bedtime 2-3 times per week [facility] estradioL (ESTRACE) 0.01 % (0.1 mg/gram) vaginal cream 10-11 00:00: 00 Yes [id number] Apply 1g vaginally at bedtime every night for 2 weeks and then apply 0.5 g vaginally at bedtime 2-3 times per week [facility] estradioL (ESTRACE) 0.01 % (0.1 mg/gram) vaginal cream 10-11 00:00: 00 Yes [id number] Apply 1g vaginally at bedtime every night for 2 weeks and then apply 0.5 g vaginally at bedtime 2-[address] [facility] estradioL (ESTRACE) 0.01 % (0.1 mg/gram) vaginal cream 10-11 00:00: 00 Yes [id number] Apply 1g vaginally at bedtime every night for 2 weeks and then apply 0.5 g vaginally at bedtime 2-3 times per week [facility] ciprofloxac in HCl 500 mg tablet 10-07 00:00: 00 05-09 00:00 :00 No [id number] 500mg Take 1 tablet by mouth every 12 (twelve) hours. [facility] ciprofloxac in HCl 500 mg tablet 10-07 00:00: 00 05-09 00:00 :00 No [id number] 500mg Take 1 tablet by mouth every 12 (twelve) hours. [facility] FENTanyl 50 mcg/hr patch 2020-0 09-28 00:00: 00 Yes 1{patch } Apply 1 Patch to skin every 72 (seventy-t wo) hours. [facility] FENTanyl 50 mcg/hr patch 2020-0 09-28 00:00: 00 Yes 1{patch } Apply 1 Patch to skin every 72 (seventy-t wo) hours. [facility] FENTanyl 50 mcg/hr patch 0 09-28 00:00: 00 Yes 1{patch } Apply 1 Patch to skin every 72 (seventy-t wo) hours. [facility] FENTanyl 50 mcg/hr patch 0 09-28 00:00: 00 Yes 1{patch } Apply 1 Patch to skin every 72 (seventy-t wo) hours. [facility] FENTanyl 50 mcg/hr patch 0 09-28 00:00: 00 Yes 1{patch } Apply 1 Patch to skin every 72 (seventy-t wo) hours. [facility] FENTanyl 50 mcg/hr patch 2020-0 09-28 00:00: 00 Yes 1{patch } Apply 1 Patch to skin every 72 (seventy-t wo) hours. [facility] FENTanyl 50 mcg/hr patch 0 09-28 00:00: 00 Yes 1{patch } Apply 1 Patch to skin every 72 (seventy-t wo) hours. [facility] FENTanyl 50 mcg/hr patch 2020-0 09-28 00:00: 00 Yes 1{patch } Apply 1 Patch to skin every 72 (seventy-t wo) hours. [facility] FENTanyl 50 mcg/hr patch 2020-0 20 00:00: 00 Yes 1{patch } Apply 1 Patch to skin every 72 (seventy-t wo) hours. [facility] FENTanyl 50 mcg/hr patch 2020-0 09-28 00:00: 00 Yes 1{patch } Apply 1 Patch to skin every 72 (seventy-t wo) hours. [facility] FENTanyl 50 mcg/hr patch 2020-0 09-28 00:00: 00 Yes 1{patch } Apply 1 Patch to skin every 72 (seventy-t wo) hours. [facility] FENTanyl 50 mcg/hr patch 2020-0 09-28 00:00: 00 Yes 1{patch } Apply 1 Patch to skin every 72 (seventy-t wo) hours. [facility] FENTanyl 50 mcg/hr patch 2020-0 09-28 00:00: 00 Yes 1{patch } Apply 1 Patch to skin every 72 (seventy-t wo) hours. [facility] FENTanyl 50 mcg/hr patch 2020-0 09-28 00:00: 00 Yes 1{patch } Apply 1 Patch to skin every 72 (seventy-t wo) hours. [facility] FENTanyl 50 mcg/hr patch 2020-0 09-28 00:00: 00 Yes 1{patch } Apply 1 Patch to skin every 72 (seventy-t wo) hours. [facility] FENTanyl 50 mcg/hr patch 2020-0 09-28 00:00: 00 Yes 1{patch } Apply 1 Patch to skin every 72 (seventy-t wo) hours. [facility] FENTanyl 50 mcg/hr patch 2020-0 09-28 00:00: 00 Yes 1{patch } Apply 1 Patch to skin every 72 (seventy-t wo) hours. [facility] FENTanyl 50 mcg/hr patch 2020-0 09-28 00:00: 00 Yes 1{patch } Apply 1 Patch to skin every 72 (seventy-t wo) hours. [facility] methocarbam oL 500 mg tablet 2020-0 09-22 00:00: 00 Yes [facility] methocarbam oL 500 mg tablet 2020-0 09-22 00:00: 00 Yes [facility] methocarbam oL 500 mg tablet 0 09-22 00:00: 00 Yes [facility] methocarbam oL 500 mg tablet 0 09-22 00:00: 00 Yes [facility] methocarbam oL 500 mg tablet 0 09-22 00:00: 00 Yes [facility] methocarbam oL 500 mg tablet 09-22 00:00: 00 Yes [facility] methocarbam oL 500 mg tablet 09-22 00:00: 00 Yes [facility] methocarbam oL 500 mg tablet 09-22 00:00: 00 Yes [facility] methocarbam oL 500 mg tablet 09-22 00:00: 00 Yes [facility] methocarbam oL 500 mg tablet 09-22 00:00: 00 Yes [facility] methocarbam oL 500 mg tablet 09-22 00:00: 00 Yes [facility] methocarbam oL 500 mg tablet 09-22 00:00: 00 Yes [facility] methocarbam oL 500 mg tablet 09-22 00:00: 00 Yes [facility] methocarbam oL 500 mg tablet 09-22 00:00: 00 Yes [facility] methocarbam oL 500 mg tablet 09-22 00:00: 00 Yes [facility] methocarbam oL 500 mg tablet 09-22 00:00: 00 Yes [facility] methocarbam oL 500 mg tablet 09-22 00:00: 00 Yes [facility] methocarbam oL 500 mg tablet 09-22 00:00: 00 Yes [facility] cephALEXin (KEFLEX) 500 mg capsule 09-17 00:00: 00 05-09 00:00 :00 No [id number] 500mg Take 1 capsule by mouth 2 (two) times daily. [facility] cephALEXin (KEFLEX) 500 mg capsule 09-17 00:00: 00 05-09 00:00 :00 No [id number] 500mg Take 1 capsule by mouth 2 (two) times daily. [facility] topiramate 25 mg tablet 09-09 00:00: [address] [facility] topiramate 25 mg tablet 09-09 00:00: 00 Yes [facility] topiramate 25 mg tablet 09-09 00:00: [address] Yes [facility] topiramate 25 mg tablet 09-09 00:00: 00 Yes [facility] topiramate 25 mg tablet 09-09 00:00: 00 Yes [facility] topiramate 25 mg tablet 09-09 00:00: 00 Yes [facility] topiramate 25 mg tablet 09-09 00:00: 00 Yes [facility] topiramate 25 mg tablet 09-09 00:00: 00 Yes [facility] topiramate 25 mg tablet 09-09 00:00: [address] Yes [facility] topiramate 25 mg tablet 09-09 00:00: 00 Yes [facility] topiramate 25 mg tablet 09-09 00:00: [address] Yes [facility] topiramate 25 mg tablet 09-09 00:00: [address] Yes [facility] topiramate 25 mg tablet 09-09 00:00: [address] Yes [facility] topiramate 25 mg tablet 09-09 00:00: 00 Yes [facility] topiramate 25 mg tablet 09-09 00:00: [address] [facility] topiramate 25 mg tablet 09-09 00:00: [address] [facility] topiramate 25 mg tablet 09-09 00:00: [address] [facility] topiramate 25 mg tablet - 00:00: 00 Yes [facility] cephALEXin (KEFLEX) 500 mg capsule 5-03 00:00: 00 05-09 00:00 :00 No [id number] 500mg Take 1 capsule by mouth 2 (two) times daily. [facility] cephALEXin (KEFLEX) 500 mg capsule 5- 00:00: 00 05-09 00:00 :00 No [id number] 500mg Take 1 capsule by mouth 2 (two) times daily. [facility] cephALEXin (KEFLEX) 500 mg capsule 3- 00:00: 00 05-09 00:00 :00 No [id number] 500mg Take 1 capsule by mouth 2 (two) times daily. [facility] cephALEXin (KEFLEX) 500 mg capsule 3-26 00:00: 00 05-09 00:00 :00 No [id number] 500mg Take 1 capsule by mouth 2 (two) times daily. [facility] Kenalog (Triamcinol one) Kenalog (Triamcinol one) 0 3-08 00:00: 00 No 40mg [facility] Bupivicaine [place] Bupivicaine [place] 0 3-08 00:00: 00 No 2.5mg [facility] Kenalog (Triamcinol one) Kenalog (Triamcinol one) 0 3-08 00:00: 00 No 40mg [facility] Bupivicaine [place] Bupivicaine [place] 2020-0 3-08 00:00: 00 No 2.5mg [facility] Kenalog (Triamcinol one) Kenalog (Triamcinol one) 0 3-08 00:00: 00 No 40mg [facility] Bupivicaine [place] Bupivicaine [place] 2020-0 3-08 00:00: 00 No 2.5mg [facility] Kenalog (Triamcinol one) Kenalog (Triamcinol one) 0 3-08 00:00: 00 No 40mg [facility] Bupivicaine [place] Bupivicaine [place] 0 3-08 00:00: 00 No 2.5mg [facility] Kenalog (Triamcinol one) Kenalog (Triamcinol one) 0 3-08 00:00: 00 No 40mg [facility] Bupivicaine [place] Bupivicaine [place] 0 3-08 00:00: 00 No [facility] Kenalog (Triamcinol one) Kenalog (Triamcinol one) 0 3-08 00:00: 00 No 40mg [facility] Bupivicaine [place] Bupivicaine [place] 3-08 00:00: 00 No 2.5mg [facility] ibuprofen 600 mg tablet 04-08 00:00: 00 Yes [id number] 600mg Take 1 tablet by mouth every 6 (six) hours as needed for Pain (scale 4-6). [facility] ibuprofen 600 mg tablet 04-08 00:00: 00 Yes [id number] 600mg Take 1 tablet by mouth every 6 (six) hours as needed for Pain (scale 4-6). [facility] ibuprofen 600 mg tablet 04-08 00:00: 00 Yes [id number] 600mg Take 1 tablet by mouth every 6 (six) hours as needed for Pain (scale 4-6). [facility] ibuprofen 600 mg tablet 04-08 00:00: 00 Yes [id number] 600mg Take 1 tablet by mouth every 6 (six) hours as needed for Pain (scale 4-6). [facility] ibuprofen 600 mg tablet 04-08 00:00: 00 Yes [id number] 600mg Take 1 tablet by mouth every 6 (six) hours as needed for Pain (scale 4-6). [facility] ibuprofen 600 mg tablet 04-08 00:00: 00 Yes [id number] 600mg Take 1 tablet by mouth every 6 (six) hours as needed for Pain (scale 4-6). [facility] 0 04-08 00:00: 00 Yes [id number] 600mg Take 1 tablet by mouth every 6 (six) hours as needed for Pain (scale 4-6). [facility] mg tablet 0 04-08 00:00: 00 Yes [id number] 600mg Take 1 tablet by mouth every 6 (six) hours as needed for Pain (scale 4-6). [facility] mg tablet 0 04-08 00:00: 00 Yes [id number] 600mg Take 1 tablet by mouth every 6 (six) hours as needed for Pain (scale 4-6). [facility] ibuprofen 600 mg tablet 0 04-08 00:00: 00 Yes [id number] 600mg Take 1 tablet by mouth every 6 (six) hours as needed for Pain (scale 4-6). [facility] ibuprofen 600 mg tablet 2020-0 04-08 00:00: 00 Yes [id number] 600mg Take 1 tablet by mouth every 6 (six) hours as needed for Pain (scale 4-6). [facility] ibuprofen 600 mg tablet 0 04-08 00:00: 00 Yes [id number] 600mg Take 1 tablet by mouth every 6 (six) hours as needed for Pain (scale 4-6). [facility] ibuprofen 600 mg tablet 0 04-08 00:00: 00 Yes [id number] 600mg Take 1 tablet by mouth every 6 (six) hours as needed for Pain (scale 4-6). [facility] ibuprofen 600 mg tablet 2020-0 04-08 00:00: 00 Yes [id number] 600mg Take 1 tablet by mouth every 6 (six) hours as needed for Pain (scale 4-6). [facility] ibuprofen 600 mg tablet 2020-0 04-08 00:00: 00 Yes [id number] 600mg Take 1 tablet by mouth every 6 (six) hours as needed for Pain (scale 4-6). [facility] ibuprofen 600 mg tablet 2020-0 04-08 00:00: 00 Yes [id number] 600mg Take 1 tablet by mouth every 6 (six) hours as needed for Pain (scale 4-6). [facility] ibuprofen 600 mg tablet 04-08 00:00: 00 Yes [id number] 600mg Take 1 tablet by mouth every 6 (six) hours as needed for Pain (scale 4-6). [facility] ibuprofen 600 mg tablet 04-08 00:00: 00 Yes [id number] 600mg Take 1 tablet by mouth every 6 (six) hours as needed for Pain (scale 4-6). [facility] Bupivicaine [place] Bupivicaine [place] 2019-03 00:00: 00 No 2.5mg [facility] Kenalog (Triamcinol one) Kenalog (Triamcinol one) 2019-03 00:00: 00 No 40mg [facility] Bupivicaine [place] Bupivicaine [place] 2019-03 00:00: 00 No 2[facility] Kenalog (Triamcinol one) Kenalog (Triamcinol one) 2019-03 00:00: 00 No 40mg [facility] Bupivicaine [place] Bupivicaine [place] 2019-03 00:00: 00 No 2[facility]5mg [facility] Kenalog (Triamcinol one) Kenalog (Triamcinol one) 2019-03 00:00: 00 No [facility] Bupivicaine [place] Bupivicaine [place] 2019-03 00:00: 00 No 2.5mg [facility] Kenalog (Triamcinol one) Kenalog (Triamcinol one) 2019-03 00:00: 00 No [facility] Bupivicaine [place] Bupivicaine [place] 2019-03 00:00: 00 No [facility] Kenalog (Triamcinol one) Kenalog (Triamcinol one) 2019-03 00:00: 00 No 40mg [facility] Bupivicaine [place] Bupivicaine [place] 2019-1 2-30 00:00: 00 No 2.5mg [facility] Kenalog (Triamcinol one) Kenalog (Triamcinol one) 1 2-30 00:00: 00 No 40mg [facility] Nitrofurant oin&Nit. Macrocryst (MACROBID) 100 mg capsule 2020-0 9-15 00:00: 00 Yes 100mg Take 1 capsule by mouth as needed for Other (after intecourse ). [facility] Nitrofurant oin&Nit. Macrocryst (MACROBID) 100 mg capsule 2020-0 9-15 00:00: 00 Yes 100mg Take 1 capsule by mouth as needed for Other (after intecourse ). [facility] Nitrofurant oin&Nit. Macrocryst (MACROBID) 100 mg capsule 2019-0 9-15 00:00: 00 Yes 100mg Take 1 capsule by mouth as needed for Other (after intecourse ). [facility] Nitrofurant oin&Nit. Macrocryst (MACROBID) 100 mg capsule 2019-0 9-15 00:00: 00 Yes 100mg Take 1 capsule by mouth as needed for Other (after intecourse ). [facility] Nitrofurant oin&Nit. Macrocryst (MACROBID) 100 mg capsule 2020-0 9-15 00:00: 00 Yes 100mg Take 1 capsule by mouth as needed for Other (after intecourse ). [facility] Nitrofurant oin&Nit. Macrocryst (MACROBID) 100 mg capsule 2020-0 9-15 00:00: 00 Yes 100mg Take 1 capsule by mouth as needed for Other (after intecourse ). [facility] Nitrofurant oin&Nit. Macrocryst (MACROBID) 100 mg capsule 2020-0 9-15 00:00: 00 Yes 100mg Take 1 capsule by mouth as needed for Other (after intecourse ). [facility] Nitrofurant oin&Nit. Macrocryst (MACROBID) 100 mg capsule 2020-0 9-15 00:00: 00 Yes [id number] 100mg Take 1 capsule by mouth as needed for Other (after intecourse ). [facility] Nitrofurant oin&Nit. Macrocryst (MACROBID) 100 mg capsule 2020-0 9-15 00:00: 00 Yes [id number] 100mg Take 1 capsule by mouth as needed for Other (after intecourse ). [facility] Nitrofurant oin&Nit. Macrocryst (MACROBID) 100 mg capsule 2020-0 9-15 00:00: 00 Yes [id number] 100mg Take 1 capsule by mouth as needed for Other (after intecourse ). [facility] Nitrofurant oin&Nit. Macrocryst (MACROBID) 100 mg capsule 2020-0 9-15 00:00: 00 Yes [id number] 100mg Take 1 capsule by mouth as needed for Other (after intecourse ). [facility] Nitrofurant oin&Nit. Macrocryst (MACROBID) 100 mg capsule 2020-0 9-15 00:00: 00 Yes [id number] 100mg Take 1 capsule by mouth as needed for Other (after intecourse ). [facility] Nitrofurant oin&Nit. Macrocryst (MACROBID) 100 mg capsule 2020-0 9-15 00:00: 00 Yes [id number] 100mg Take 1 capsule by mouth as needed for Other (after intecourse ). [facility] Nitrofurant oin&Nit. Macrocryst (MACROBID) 100 mg capsule 2020-0 9-15 00:00: 00 Yes [id number] 100mg Take 1 capsule by mouth as needed for Other (after intecourse ). [facility] Nitrofurant oin&Nit. Macrocryst (MACROBID) 100 mg capsule 2020-0 9-15 00:00: 00 Yes [id number] 100mg Take 1 capsule by mouth as needed for Other (after intecourse ). [facility] Nitrofurant oin&Nit. Macrocryst (MACROBID) 100 mg capsule 2020-0 9-15 00:00: 00 Yes [id number] 100mg Take 1 capsule by mouth as needed for Other (after intecourse ). [facility] Nitrofurant oin&Nit. Macrocryst (MACROBID) 100 mg capsule 11-24 00:00: 00 Yes [id number] 100mg Take 1 capsule by mouth as needed for Other (after intecourse ). [facility] Nitrofurant oin&Nit. Macrocryst (MACROBID) 100 mg capsule 11-24 00:00: 00 Yes [id number] 100mg Take 1 capsule by mouth as needed for Other (after intecourse ). [facility] Bupivicaine [place] Bupivicaine [place] 2019-0 10-12 00:00: 00 No 5mL [facility] Kenalog (Triamcinol one) Kenalog (Triamcinol one) 2019-0 8- 00:00: 00 No 40mg [facility] Bupivicaine [place] Bupivicaine [place] 2019-0 8-03 00:00: 00 No 5mL [facility] Kenalog (Triamcinol one) Kenalog (Triamcinol one) 2019-0 8-03 00:00: 00 No 40mg [facility] Bupivicaine [place] Bupivicaine [place] 2019-0 8-03 00:00: 00 No 5mL [facility] Kenalog (Triamcinol one) Kenalog (Triamcinol one) 2019-0 8-03 00:00: 00 No 40mg [facility] Bupivicaine [place] Bupivicaine [place] 2019-0 8-03 00:00: 00 No 5mL [facility] Kenalog (Triamcinol one) Kenalog (Triamcinol one) 2019-0 8-03 00:00: 00 No 40mg [facility] Bupivicaine [place] Bupivicaine [place] 2019-0 8-03 00:00: 00 No 5mL [facility] Kenalog (Triamcinol one) Kenalog (Triamcinol one) 2019-0 8-03 00:00: 00 No 40mg [facility] Bupivicaine [place] Bupivicaine [place] 10-12 00:00: 00 No 5mL [facility] Kenalog (Triamcinol one) Kenalog (Triamcinol one) 10-12 00:00: 00 No 40mg [facility] Meloxicam Meloxicam 10-12 00:00: 11-11 00:00 :00 No [facility] 1 tablet [facility] Estrace Estrace 04-24 00:00: 00 Yes Justice Sherman as directed [facility] Estrace 0.1 MG/GM Estrace 0.1 MG/GM 04-24 [...] 12-06 00:00: 00 05-09 00:00 :00 No [facility] morpHINE I.R. (MSIR) 15 mg tablet 12-06 00:00: 00 05-09 00:00 :00 No [facility] morpHINE E.R. (MS CONTIN) 30 mg SR tablet 12-06 00:00: 00 05-09 00:00 :00 No [facility] morpHINE I.R. (MSIR) 15 mg tablet 12-06 00:00: 00 05-09 00:00 :00 No [facility] Robaxin-750 750 mg tablet 1 po [...] [facility] [place] 10 mg-325 mg tablet 1-2 every 4-6 hours prn pain [place] 10 mg-325 mg tablet 1-2 every 4-6 hours prn pain 09-03 00:00: 00 No [place] 10 mg-325 mg tablet 1-2 every 4-6 hours prn pain [facility] metoprolol succinate ER 25 mg tablet,exte nded release 24 hr metoprolol succinate ER 25 mg tablet,exte nded release 24 hr No metoprolol succinate ER 25 mg tablet,ext ended release [facility] nitroglycer in 0.4 mg sublingual tablet nitroglycer in 0.4 mg sublingual tablet No nitroglyce rin 0.4 mg sublingual tablet [facility] ofloxacin 0.3 % eye drops ofloxacin 0.3 % eye drops No ofloxacin 0.3 % eye drops [facility] Robaxin RX by other Robaxin RX by other No Robaxin RX by other [facility] tizanidine 4 mg tablet TAKE 1 TABLET BY MOUTH AT BEDTIME tizanidine 4 mg tablet TAKE 1 TABLET BY MOUTH AT BEDTIME No tizanidine 4 mg tablet TAKE 1 TABLET BY MOUTH AT BEDTIME [facility] Robaxin RX by other Robaxin RX by other No Robaxin RX by other MD [facility] topiramate 25 mg tablet TAKE 1 TABLET BY MOUTH TWICE DAILY topiramate 25 mg tablet TAKE 1 TABLET BY MOUTH TWICE DAILY No topiramate 25 mg tablet TAKE 1 TABLET BY MOUTH TWICE DAILY [facility] tramadol 50 mg tablet Take 1 tablet every 6 hours by oral route as needed for 7 days. tramadol 50 mg tablet Take 1 tablet every 6 hours by oral route as needed for 7 days. No tramadol 50 mg tablet Take 1 tablet every 6 hours by oral route as needed for 7 days. [facility] Xarelto 10 mg tablet TAKE ONE (1) TABLET(S) BY MOUTH ONCE A DAY. Xarelto 10 mg tablet TAKE ONE (1) TABLET(S) BY MOUTH ONCE A DAY. No Xarelto 10 mg tablet TAKE ONE (1) TABLET(S) BY MOUTH ONCE A DAY. [facility] Robaxin 500 mg tablet 1 tid Robaxin 500 mg tablet 1 tid No Robaxin 500 mg tablet 1 tid [facility] albuterol sulfate 2.5 [...] MD No Robaxin RX by other MD [facility] tizanidine 4 mg tablet TAKE 1 TABLET BY MOUTH AT BEDTIME tizanidine 4 mg tablet TAKE 1 TABLET BY MOUTH AT BEDTIME No tizanidine 4 mg tablet TAKE 1 TABLET BY MOUTH AT BEDTIME [facility] topiramate 25 [...] No Robaxin RX by other [facility] tizanidine 4 mg [...] tablet [facility] alprazolam 0.5 mg tablet alprazolam 0.5 mg tablet No alprazolam 0.5 mg tablet [facility] amlodipine 10 mg tablet amlodipine 10 mg tablet No amlodipine 10 mg tablet [facility] amlodipine 5 [...] days. [facility] butalbital- acetaminoph en-caffeine 50 mg-300 mg-40 mg capsule butalbital- acetaminoph en-caffeine 50 mg-300 mg-40 mg capsule No butalbital -acetamino phen-caffe ine 50 mg-300 mg-40 mg capsule [facility] cephalexin [...] days. [facility] estradiol 0.01% (0.1 mg/gram) vaginal cream estradiol 0.01% (0.1 mg/gram) vaginal cream No estradiol 0.01% (0.1 mg/gram) vaginal cream [facility] fentanyl 50 mcg/hr transdermal patch APPLY ONE PATCH TO SKIN EVERY 72 HOURS fentanyl 50 mcg/hr transdermal patch APPLY ONE PATCH TO SKIN EVERY 72 HOURS No fentanyl 50 mcg/hr transderma l patch APPLY ONE PATCH TO SKIN EVERY 72 HOURS [facility] fentanyl 75 mcg/hr transdermal patch fentanyl 75 mcg/hr transdermal patch No fentanyl 75 mcg/hr transderma l patch [facility] gabapentin 300 mg capsule gabapentin 300 mg capsule No gabapentin 300 mg capsule [facility] hydrocodone [...] e 5 mg-acetami nophen 325 mg tablet [facility] hydromorpho ne 4 mg tablet hydromorpho ne 4 mg tablet No hydromorph one 4 mg tablet [facility] ibuprofen 600 mg tablet TAKE ONE (1) TABLET(S) BY MOUTH EVERY SIX HOURS NEEDED FOR PAIN. TAKE WITH FOOD. ibuprofen 600 mg tablet TAKE ONE (1) TABLET(S) BY MOUTH EVERY SIX HOURS NEEDED FOR PAIN. TAKE WITH FOOD. No ibuprofen 600 mg tablet TAKE ONE (1) TABLET(S) BY MOUTH EVERY SIX HOURS NEEDED FOR PAIN. TAKE WITH FOOD. [facility] levofloxaci n 500 mg tablet TAKE ONE (1) TABLET(S) BY MOUTH DAILY. levofloxaci n 500 mg tablet TAKE ONE (1) TABLET(S) BY MOUTH DAILY. No levofloxac in 500 mg tablet TAKE ONE (1) TABLET(S) BY MOUTH DAILY. [facility] meloxicam [...] Medicin e methocarbam ol 500 mg tablet TAKE 1 TABLET BY MOUTH EVERY 6-8 HOUR NEEDED FOR MUSCLE SPASMS methocarbam ol 500 mg tablet TAKE 1 TABLET BY MOUTH EVERY 6-8 HOUR NEEDED FOR MUSCLE SPASMS No methocarba mol 500 mg tablet TAKE 1 TABLET BY MOUTH EVERY 6-8 HOUR NEEDED FOR MUSCLE SPASMS [facility] metoprolol [...] drops [facility] ondansetron 8 mg disintegrat ing tablet ondansetron 8 mg disintegrat ing tablet No ondansetro n 8 mg disintegra ting tablet [facility] prednisone 5 mg tablet prednisone 5 mg tablet No prednisone 5 mg tablet [facility] pregabalin 100 mg capsule pregabalin 100 mg capsule No pregabalin 100 mg capsule [facility] Qulipta 60 mg tablet Qulipta 60 mg tablet No Qulipta 60 mg tablet [facility] Robaxin RX by other Robaxin RX by other MD No Robaxin RX by other MD [facility] sulfamethox azole 800 mg-trimetho prim 160 mg tablet sulfamethox azole 800 mg-trimetho prim 160 mg tablet No sulfametho xazole 800 mg-trimeth oprim 160 mg tablet [facility] tizanidine 4 [...] Sports [facility] tramadol 50 mg tablet TAKE ONE (1) TABLET(S) BY MOUTH EVERY EIGHT HOURS NEEDED. tramadol 50 mg tablet TAKE ONE (1) TABLET(S) BY MOUTH EVERY EIGHT HOURS NEEDED. No tramadol 50 mg tablet TAKE ONE (1) TABLET(S) BY MOUTH EVERY EIGHT HOURS NEEDED. [facility] Ubrelvy 100 mg tablet Ubrelvy 100 mg tablet No Ubrelvy 100 mg tablet [facility] Xarelto [...] tablet [facility] alprazolam 0.5 mg tablet alprazolam 0.5 mg tablet No alprazolam 0.5 mg tablet [facility] [...] days. [facility] butalbital- acetaminoph en-caffeine 50 mg-300 mg-40 mg capsule butalbital- acetaminoph en-caffeine 50 mg-300 mg-40 mg capsule No butalbital -acetamino phen-caffe ine 50 mg-300 mg-40 mg capsule [facility] cephalexin 500 mg capsule cephalexin 500 mg capsule No cephalexin 500 mg capsule [facility] alendronate 70 mg tablet alendronate 70 mg tablet No alendronat e 70 mg tablet [facility] clonazepam [...] days. [facility] estradiol 0.01% (0.1 mg/gram) vaginal cream estradiol 0.01% (0.1 mg/gram) vaginal cream No estradiol 0.01% (0.1 mg/gram) vaginal cream [facility] fentanyl 50 mcg/hr transdermal patch APPLY ONE PATCH TO SKIN EVERY 72 HOURS fentanyl 50 mcg/hr transdermal patch APPLY ONE PATCH TO SKIN EVERY 72 HOURS No fentanyl 50 mcg/hr transderma l patch APPLY ONE PATCH TO SKIN EVERY 72 HOURS [facility] fentanyl 75 mcg/hr transdermal patch fentanyl 75 mcg/hr transdermal patch No fentanyl 75 mcg/hr transderma l patch [facility] gabapentin 300 mg capsule gabapentin 300 mg capsule No gabapentin 300 mg capsule [facility] hydrocodone [...] tablet [facility] ibuprofen 600 mg tablet TAKE ONE (1) TABLET(S) BY MOUTH EVERY SIX HOURS NEEDED FOR PAIN. TAKE WITH FOOD. ibuprofen 600 mg tablet TAKE ONE (1) TABLET(S) BY MOUTH EVERY SIX HOURS NEEDED FOR PAIN. TAKE WITH FOOD. No ibuprofen 600 mg tablet TAKE ONE (1) TABLET(S) BY MOUTH EVERY SIX HOURS NEEDED FOR PAIN. TAKE WITH FOOD. [facility] levofloxaci n 500 mg tablet TAKE ONE (1) TABLET(S) BY MOUTH DAILY. levofloxaci n 500 mg tablet TAKE ONE (1) TABLET(S) BY MOUTH DAILY. No levofloxac in 500 mg tablet TAKE ONE (1) TABLET(S) BY MOUTH DAILY. [facility] meloxicam [...] Medicin e methocarbam ol 500 mg tablet TAKE 1 TABLET BY MOUTH EVERY 6-8 HOUR NEEDED FOR MUSCLE SPASMS methocarbam ol 500 mg tablet TAKE 1 TABLET BY MOUTH EVERY 6-8 HOUR NEEDED FOR MUSCLE SPASMS No methocarba mol 500 mg tablet TAKE 1 TABLET BY MOUTH EVERY 6-8 HOUR NEEDED FOR MUSCLE SPASMS [facility] metoprolol [...] drops [facility] ondansetron 8 mg disintegrat ing tablet ondansetron 8 mg disintegrat ing tablet No ondansetro n 8 mg disintegra ting tablet [facility] prednisone 5 mg tablet prednisone 5 mg tablet No prednisone 5 mg tablet [facility] amlodipine 5 mg tablet TAKE 1 TABLET BY MOUTH EVERY DAY amlodipine 5 mg tablet TAKE 1 TABLET BY MOUTH EVERY DAY No amlodipine 5 mg tablet TAKE 1 TABLET BY MOUTH EVERY DAY [facility] pregabalin 100 mg capsule pregabalin 100 mg capsule No pregabalin 100 mg capsule [facility] Qulipta 60 mg tablet Qulipta 60 mg tablet No Qulipta 60 mg tablet [facility] Robaxin RX by other MD Robaxin RX by other MD No Robaxin RX by other MD [facility] sulfamethox azole 800 mg-trimetho prim 160 mg tablet sulfamethox azole 800 mg-trimetho prim 160 mg tablet No sulfametho xazole 800 mg-trimeth oprim 160 mg tablet [facility] tizanidine 4 [...] TAKE 1 TABLET BY MOUTH TWICE DAILY [facility] tramadol 50 mg tablet TAKE ONE (1) TABLET(S) BY MOUTH EVERY EIGHT HOURS NEEDED. tramadol 50 mg tablet TAKE ONE (1) TABLET(S) BY MOUTH EVERY EIGHT HOURS NEEDED. No tramadol 50 mg tablet TAKE ONE (1) TABLET(S) BY MOUTH EVERY EIGHT HOURS NEEDED. [facility] Ubrelvy 100 mg tablet Ubrelvy 100 mg tablet No Ubrelvy 100 mg tablet [facility] aspirin [...] DAY. [facility] cephalexin 500 mg capsule cephalexin 500 mg capsule No cephalexin 500 mg capsule [facility] albuterol sulfate 2.5 mg/3 mL (0.083 %) solution for nebulizatio n albuterol sulfate 2.5 mg/3 mL (0.083 %) solution for nebulizatio n No albuterol sulfate 2.5 mg/3 mL (0.083 %) solution for nebulizati on [facility] clonazepam 1 mg tablet TAKE 1 TABLET BY MOUTH THREE TIMES DAILY clonazepam 1 mg tablet TAKE 1 TABLET BY MOUTH THREE TIMES DAILY No clonazepam 1 mg tablet TAKE 1 TABLET BY MOUTH THREE TIMES DAILY [facility] albuterol sulfate HFA 90 mcg/actuati on aerosol inhaler albuterol sulfate HFA 90 mcg/actuati on aerosol inhaler No albuterol sulfate HFA 90 mcg/actuat ion aerosol inhaler [facility] alendronate 70 mg tablet alendronate 70 mg tablet No alendronat e 70 mg tablet [facility] alprazolam 0.5 mg tablet alprazolam 0.5 mg tablet No alprazolam 0.5 mg tablet [facility] [...] days. [facility] butalbital- acetaminoph en-caffeine 50 mg-300 mg-40 mg capsule butalbital- acetaminoph en-caffeine 50 mg-300 mg-40 mg capsule No butalbital -acetamino phen-caffe ine 50 mg-300 mg-40 mg capsule [facility] cephalexin [...] MONTH [facility] cyanocobala [...] tablet [facility] dexamethaso ne 2 mg tablet TAKE ONE (1) TABLET(S) BY MOUTH EVERY TWELVE HOURS. dexamethaso ne 2 mg tablet TAKE ONE (1) TABLET(S) BY MOUTH EVERY TWELVE HOURS. No dexamethas one 2 mg tablet TAKE ONE (1) TABLET(S) BY MOUTH EVERY TWELVE HOURS. [facility] doxycycline [...] days. [facility] estradiol 0.01% (0.1 mg/gram) vaginal cream estradiol 0.01% (0.1 mg/gram) vaginal cream No estradiol 0.01% (0.1 mg/gram) vaginal cream [facility] fentanyl 50 mcg/hr transdermal patch APPLY ONE PATCH TO SKIN EVERY 72 HOURS fentanyl 50 mcg/hr transdermal patch APPLY ONE PATCH TO SKIN EVERY 72 HOURS No fentanyl 50 mcg/hr transderma l patch APPLY ONE PATCH TO SKIN EVERY 72 HOURS [facility] fentanyl 75 mcg/hr transdermal patch fentanyl 75 mcg/hr transdermal patch No fentanyl 75 mcg/hr transderma l patch [facility] gabapentin 300 mg capsule gabapentin 300 mg capsule No gabapentin 300 mg capsule [facility] hydrocodone [...] tablet [facility] Dayvigo 5 mg tablet Dayvigo 5 mg tablet No Dayvigo 5 mg tablet [facility] ibuprofen 600 mg tablet TAKE ONE (1) TABLET(S) BY MOUTH EVERY SIX HOURS WITH FOOD NEEDED FOR PAIN. ibuprofen 600 mg tablet TAKE ONE (1) TABLET(S) BY MOUTH EVERY SIX HOURS WITH FOOD NEEDED FOR PAIN. No ibuprofen 600 mg tablet TAKE ONE (1) TABLET(S) BY MOUTH EVERY SIX HOURS WITH FOOD NEEDED FOR PAIN. [facility] levofloxaci n 500 mg tablet TAKE ONE (1) TABLET(S) BY MOUTH ONCE A DAY FOR SEVEN DAYS. levofloxaci n 500 mg tablet TAKE ONE (1) TABLET(S) BY MOUTH ONCE A DAY FOR SEVEN DAYS. No levofloxac in 500 mg tablet TAKE ONE (1) TABLET(S) BY MOUTH ONCE A DAY FOR SEVEN DAYS. [facility] meloxicam [...] Medicin e methocarbam ol 500 mg tablet TAKE 1 TABLET BY MOUTH EVERY 6-8 HOUR NEEDED FOR MUSCLE SPASMS methocarbam ol 500 mg tablet TAKE 1 TABLET BY MOUTH EVERY 6-8 HOUR NEEDED FOR MUSCLE SPASMS No methocarba mol 500 mg tablet TAKE 1 TABLET BY MOUTH EVERY 6-8 HOUR NEEDED FOR MUSCLE SPASMS [facility] metoprolol [...] drops [facility] ondansetron 8 mg disintegrat ing tablet ondansetron 8 mg disintegrat ing tablet No ondansetro n 8 mg disintegra ting tablet [facility] ondansetron HCl 4 mg tablet TAKE ONE (1) TABLET(S) BY MOUTH EVERY TWELVE HOURS NEEDED. ondansetron HCl 4 mg tablet TAKE ONE (1) TABLET(S) BY MOUTH EVERY TWELVE HOURS NEEDED. No ondansetro n HCl 4 mg tablet TAKE ONE (1) TABLET(S) BY MOUTH EVERY TWELVE HOURS NEEDED. [facility] prednisone 5 mg tablet prednisone 5 mg tablet No prednisone 5 mg tablet [facility] [...] days. [facility] pregabalin 100 mg capsule pregabalin 100 mg capsule No pregabalin 100 mg capsule [facility] Qulipta 60 mg tablet Qulipta 60 mg tablet No Qulipta 60 mg tablet [facility] Robaxin RX by other Robaxin RX by other MD No Robaxin RX by other MD [facility] sulfamethox azole 800 mg-trimetho prim 160 mg tablet sulfamethox azole 800 mg-trimetho prim 160 mg tablet No sulfametho xazole 800 mg-trimeth oprim 160 mg tablet [facility] tizanidine 4 [...] Sports [facility] tramadol 50 mg tablet TAKE ONE (1) TABLET(S) BY MOUTH EVERY EIGHT HOURS NEEDED. tramadol 50 mg tablet TAKE ONE (1) TABLET(S) BY MOUTH EVERY EIGHT HOURS NEEDED. No tramadol 50 mg tablet TAKE ONE (1) TABLET(S) BY MOUTH EVERY EIGHT HOURS NEEDED. [facility] Ubrelvy 100 mg tablet Ubrelvy 100 mg tablet No Ubrelvy 100 mg tablet [facility] fentanyl 50 mcg/hr transdermal patch APPLY ONE PATCH TO SKIN EVERY 72 HOURS fentanyl 50 mcg/hr transdermal patch APPLY ONE PATCH TO SKIN EVERY 72 HOURS No fentanyl 50 mcg/hr transderma l patch APPLY ONE PATCH TO SKIN EVERY 72 HOURS [facility] Xarelto 10 mg tablet TAKE ONE (1) TABLET(S) BY MOUTH ONCE A DAY. Xarelto 10 mg tablet TAKE ONE (1) TABLET(S) BY MOUTH ONCE A DAY. No Xarelto 10 mg tablet TAKE ONE (1) TABLET(S) BY MOUTH ONCE A DAY. [facility] hydrocodone [...] No Robaxin RX by other MD [facility] tizanidine 4 mg tablet TAKE 1 TABLET BY MOUTH AT BEDTIME tizanidine 4 mg tablet TAKE 1 TABLET BY MOUTH AT BEDTIME No tizanidine 4 mg tablet TAKE 1 TABLET BY MOUTH AT BEDTIME [facility] topiramate 25 mg tablet TAKE 1 TABLET BY MOUTH TWICE DAILY topiramate 25 mg tablet TAKE 1 TABLET BY MOUTH TWICE DAILY No topiramate 25 mg tablet TAKE 1 TABLET BY MOUTH TWICE DAILY [facility] tramadol 50 mg tablet Take 1 tablet every 6 hours by oral route as needed for 7 days. tramadol 50 mg tablet Take 1 tablet every 6 hours by oral route as needed for 7 days. No tramadol 50 mg tablet Take 1 tablet every 6 hours by oral route as needed for 7 days. [facility] Xarelto 10 mg tablet TAKE ONE (1) TABLET(S) BY MOUTH ONCE A DAY. Xarelto 10 mg tablet TAKE ONE (1) TABLET(S) BY MOUTH ONCE A DAY. No Xarelto 10 mg tablet TAKE ONE (1) TABLET(S) BY MOUTH ONCE A DAY. [facility] albuterol sulfate 2.5 mg/3 mL (0.083 %) solution for nebulizatio n albuterol sulfate 2.5 mg/3 mL (0.083 %) solution for nebulizatio n No albuterol sulfate 2.5 mg/3 mL (0.083 %) solution for nebulizati on [facility] alendronate 70 mg tablet alendronate 70 mg tablet No alendronat e 70 mg tablet [facility] amlodipine 10 mg tablet amlodipine 10 mg tablet No amlodipine 10 mg tablet [facility] amlodipine 5 mg tablet TAKE 1 TABLET BY MOUTH EVERY DAY amlodipine 5 mg tablet TAKE 1 TABLET BY MOUTH EVERY DAY No amlodipine 5 mg tablet TAKE 1 TABLET BY MOUTH EVERY DAY [facility] aspirin 81 mg [...] tablet [facility] Ciprofloxac in HCl Ciprofloxac in HCl Yes Justice Sherman not defined [facility] Nitrofurant oin Macrocrysta l Nitrofurant oin Macrocrysta l Yes Justice Sherman 1 capsule with food or milk [facility] Nitrofurant oin Monohyd Macro Nitrofurant oin Monohyd Macro Yes Justice Sherman not defined [facility] Fluticasone Propionate Fluticasone Propionate Yes Justice Sherman not defined [facility] Topiramate Topiramate Yes Justice Sherman not defined [facility] Levofloxaci n Levofloxaci n Yes Justice Sherman not defined [facility] Cyclobenzap rine HCl Cyclobenzap rine HCl Yes Justice Sherman not defined [facility] Robaxin-750 Robaxin-750 Yes Andry Sherman 1 tablet [facility] Tamsulosin HCl Tamsulosin HCl Yes Justice Sherman not defined [facility] Cephalexin Cephalexin Yes Justice Sherman not defined [facility] Tizanidine HCl Tizanidine HCl Yes Justice Sherman not defined [facility] Alprazolam Alprazolam Yes Justice Sherman not defined [facility] Tramadol HCl Tramadol HCl Yes Justice Sherman not defined [facility] Clonazepam Clonazepam Yes Justice Sherman not defined [facility] Fentanyl Fentanyl Yes Justice Sherman 1 patch to skin [facility] Topiramate Topiramate No Topiramate Estradiol Estradiol No [...] Propionate Fluticasone Propionate No Fluticason e Propionate meloxicam 15 mg tablet Take 1 tablet [...] No Robaxin RX by other MD [facility] tizanidine 4 mg [...] No Robaxin RX by other MD [facility] tizanidine 4 mg tablet TAKE 1 TABLET BY MOUTH AT BEDTIME tizanidine 4 mg tablet TAKE 1 TABLET BY MOUTH AT BEDTIME No tizanidine 4 mg tablet TAKE 1 TABLET BY MOUTH AT BEDTIME [facility] topiramate 25 mg tablet TAKE 1 TABLET BY MOUTH TWICE DAILY topiramate 25 mg tablet TAKE 1 TABLET BY MOUTH TWICE DAILY No topiramate 25 mg tablet TAKE 1 TABLET BY MOUTH TWICE DAILY [facility] tramadol 50 mg tablet Take 1 tablet every 6 hours by oral route as needed for 7 days. tramadol 50 mg tablet Take 1 tablet every 6 hours by oral route as needed for 7 days. No tramadol 50 mg tablet Take 1 tablet every 6 hours by oral route as needed for 7 days. [facility] Xarelto 10 mg tablet TAKE ONE (1) TABLET(S) BY MOUTH ONCE A DAY. Xarelto 10 mg tablet TAKE ONE (1) TABLET(S) BY MOUTH ONCE A DAY. No Xarelto 10 mg tablet TAKE ONE (1) TABLET(S) BY MOUTH ONCE A DAY. [facility] albuterol sulfate 2.5 mg/3 mL (0.083 %) solution for nebulizatio n albuterol sulfate 2.5 mg/3 mL (0.083 %) solution for nebulizatio n No albuterol sulfate 2.5 mg/3 mL (0.083 %) solution for nebulizati on [facility] alendronate 70 mg tablet alendronate 70 mg tablet No alendronat e 70 mg tablet [facility] amlodipine 10 mg tablet amlodipine 10 mg tablet No amlodipine 10 mg tablet [facility] amlodipine 5 mg tablet TAKE 1 TABLET BY MOUTH EVERY DAY amlodipine 5 mg tablet TAKE 1 TABLET BY MOUTH EVERY DAY No amlodipine 5 mg tablet TAKE 1 TABLET BY MOUTH EVERY DAY [facility] aspirin 81 mg [...] MD [facility] tizanidine 4 [...] days. [facility] Immunizations Ordered Immunization Name Filled Immunization Name Date Status Comments Source SARS-COV-2 COVID-19 MODERNA VACCINE 2020-07-07 00:00:00 Completed [facility] SARS-COV-2 COVID-19 MODERNA VACCINE 2020-07-07 00:00:00 Completed [facility] SARS-COV-2 COVID-19 MODERNA VACCINE 2020-07-07 00:00:00 Completed [facility] SARS-COV-2 COVID-19 MODERNA 12+ YRS VACCINE 2020-07-07 00:00:00 Completed [facility] SARS-COV-2 COVID-19 MODERNA 12+ YRS VACCINE 2020-07-07 00:00:00 Completed [facility] SARS-COV-2 COVID-19 MODERNA 12+ YRS VACCINE 2020-07-07 00:00:00 Completed [facility] SARS-COV-2 COVID-19 MODERNA 12+ YRS VACCINE 2020-07-07 00:00:00 Completed [facility] SARS-COV-2 COVID-19 MODERNA 12+ YRS VACCINE 2020-07-07 00:00:00 Completed [facility] SARS-COV-2 COVID-19 MODERNA 12+ YRS VACCINE 2020-07-07 00:00:00 Completed [facility] SARS-COV-2 COVID-19 MODERNA 12+ YRS VACCINE 2020-07-07 00:00:00 Completed [facility] SARS-COV-2 COVID-19 MODERNA 12+ YRS VACCINE 2020-07-07 00:00:00 Completed [facility] SARS-COV-2 COVID-19 MODERNA 12+ YRS VACCINE 2020-07-07 00:00:00 Completed [facility] SARS-COV-2 COVID-19 MODERNA 12+ YRS VACCINE 2020-07-07 00:00:00 Completed [facility] SARS-COV-2 COVID-19 MODERNA 12+ YRS VACCINE 2020-07-07 00:00:00 Completed [facility] SARS-COV-2 COVID-19 MODERNA 12+ YRS VACCINE 2020-07-07 00:00:00 Completed [facility] SARS-COV-2 COVID-19 MODERNA VACCINE 2020-06-09 00:00:00 Completed [facility] SARS-COV-2 COVID-19 MODERNA VACCINE 2020-06-09 00:00:00 Completed [facility] SARS-COV-2 COVID-19 MODERNA VACCINE 2020-06-09 00:00:00 Completed [facility] SARS-COV-2 COVID-19 MODERNA 12+ YRS VACCINE 2020-06-09 00:00:00 Completed [facility] SARS-COV-2 COVID-19 MODERNA 12+ YRS VACCINE 2020-06-09 00:00:00 Completed [facility] SARS-COV-2 COVID-19 MODERNA 12+ YRS VACCINE 2020-06-09 00:00:00 Completed [facility] SARS-COV-2 COVID-19 MODERNA 12+ YRS VACCINE 2020-06-09 00:00:00 Completed [facility] SARS-COV-2 COVID-19 MODERNA 12+ YRS VACCINE 2020-06-09 00:00:00 Completed [facility] SARS-COV-2 COVID-19 MODERNA 12+ YRS VACCINE 2020-06-09 00:00:00 Completed [facility] SARS-COV-2 COVID-19 MODERNA 12+ YRS VACCINE 2020-06-09 00:00:00 Completed [facility] SARS-COV-2 COVID-19 MODERNA 12+ YRS VACCINE 2020-06-09 00:00:00 Completed [facility] SARS-COV-2 COVID-19 MODERNA 12+ YRS VACCINE 2020-06-09 00:00:00 Completed [facility] SARS-COV-2 COVID-19 MODERNA 12+ YRS VACCINE 2020-06-09 00:00:00 Completed [facility] SARS-COV-2 COVID-19 MODERNA 12+ YRS VACCINE 2020-06-09 00:00:00 Completed [facility] SARS-COV-2 COVID-19 MODERNA 12+ YRS VACCINE 2020-06-09 00:00:00 Completed [facility] SARS-COV-2 COVID-19 MODERNA 12+ YRS VACCINE Unknown Completed [facility] SARS-COV-2 COVID-19 MODERNA 12+ YRS VACCINE Unknown Completed [facility] SARS-COV-2 COVID-19 MODERNA 12+ YRS VACCINE Unknown Completed [facility] SARS-COV-2 COVID-19 MODERNA 12+ YRS VACCINE Unknown Completed [facility] SARS-COV-2 COVID-19 MODERNA 12+ YRS VACCINE Unknown Completed [facility] SARS-COV-2 COVID-19 MODERNA 12+ YRS VACCINE Unknown Completed [facility] Vital Signs Vital Name Observation Time Observation Value Comments S bobbyce Height 2023-04-04 00:00:00 68 [in_i] [facility] Body Weight 2023-04-04 00:00:00 177.6 [lb_av] [facility] BMI (Body Mass Index) 2023-04-04 00:00:00 27 kg/m2 [facility] Height 2022-06-14 00:00:00 68 [in_i] Azale a [...] Systolic blood pressure 2021-12-29 17:53:00 107 mm[Hg] [facility] Diastolic blood pressure 2021-12-29 17:53:00 67 mm[Hg] [facility] Heart rate 2021-12-29 17:53:00 74 /min [facility] Body temperature 2021-12-29 17:53:00 36.44 Sonam [facility] Respiratory rate 2021-12-29 17:53:00 18 /min [facility] Body height 2021-12-29 17:53:00 172.7 cm per pt [facility] Body weight 2021-12-29 17:53:00 81.965 kg [facility] BMI 2021-12-29 17:53:00 27.48 kg/m2 [facility] Oxygen saturation in Arterial blood by Pulse oximetry 2021-12-29 17:53:00 99 /min [facility] Height 2021-11-02 00:00:00 68 [in_i] [facility] BMI (Body Mass Index) 2021-11-02 00:00:00 25.8 kg/m2 [facility] Body Weight 2021-11-02 00:00:00 170 [lb_av] [facility] Systolic blood pressure 2021-10-20 15:53:00 160 mm[Hg] [facility] Diastolic blood pressure 2021-10-20 15:53:00 78 mm[Hg] [facility] Heart rate 2021-10-20 15:50:00 82 /min General acute hospital Body temperature 2021-10-20 15:50:00 36.89 Sonam [facility] Respiratory rate 2021-10-20 15:50:00 17 /min [facility] Body height 2021-10-20 15:50:00 172.7 cm [facility] Body weight 2021-10-20 15:50:00 77.565 kg [facility] BMI 2021-10-20 15:50:00 26.00 kg/m2 [facility] Oxygen saturation in Arterial blood by Pulse oximetry 2021-10-20 15:50:00 98 /min [facility] height 2021-09-06 08:30:00 68 [in_i] Althea cabrera [facility] weight 2021-09-06 08:30:00 173.3 [lb_av] Co mmon [facility] bmi 2021-09-06 08:30:00 26.35 kg/m2 Comm on [facility] blood pressure systolic 2021-09-06 08:30:00 144 mm[Hg] [facility] blood pressure diastolic 2021-09-06 08:30:00 84 mm[Hg] Common [facility] height 2021-07-07 13:30:00 68 [in_i] Commo n [facility] weight 2021-07-07 13:30:00 176 [lb_av] Comm on [facility] temperature 2021-07-07 13:30:00 97.2 [degF] Com mon [facility] bmi 2021-07-07 13:30:00 26.76 kg/m2 Comm on [facility] blood pressure systolic 2021-07-07 13:30:00 148 mm[Hg] [facility] blood pressure diastolic 2021-07-07 13:30:00 73 mm[Hg] [facility] height 2021-06-07 13:00:00 68 [in_i] Commo n [facility] weight 2021-06-07 13:00:00 176 [lb_av] Comm on [facility] temperature 2021-06-07 13:00:00 96.8 [degF] Com mon [facility] bmi 2021-06-07 13:00:00 26.76 kg/m2 Comm on [facility] blood pressure systolic 2021-06-07 13:00:00 124 mm[Hg] [facility] blood pressure diastolic 2021-06-07 13:00:00 76 mm[Hg] Common [facility] Systolic blood pressure 2021-05-09 16:22:00 153 mm[Hg] [facility] Diastolic blood pressure 2021-05-09 16:22:00 73 mm[Hg] [facility] Heart rate 2021-05-09 16:22:00 69 /min General acute hospital Respiratory rate 2021-05-09 16:21:00 19 /min [facility] Body height 2021-05-09 16:21:00 172.7 cm [facility] Body weight 2021-05-09 16:21:00 81.285 kg [facility] BMI 2021-05-09 16:21:00 27.25 kg/m2 [facility] Oxygen saturation in Arterial blood by Pulse oximetry 2021-05-09 16:21:00 100 /min [facility] Procedures Procedure Date / Time Performed Performing Clinician Source MEDICAL RELEASE/CLEARANCE FORMS 2023-04-05 06:01:00 Doctor Unassigned, Silas [facility] XR, femur, 2 or more view 2023-04-04 00:00:00 [facility] XR, femur, 2 or more view 2022-06-14 [...] 2022-02-15 00:00:00 [facility] [id number] 2022-01-20 00:00:00 MATVA.01 [facility] [id number] 2022-01-20 00:00:00 MATVA.01 [facility] [id number] 2022-01-19 00:00:00 MATVA.01 [facility] [id number] 2022-01-19 00:00:00 MATVA.01 [facility] Revise Hip Joint Replacement 2022-01-19 00:00:00 [facility] [id number] 2022-01-19 00:00:00 BRIMA.01 [facility] [id number] 2022-01-19 00:00:00 MATVA.01 [facility] ASSIGNMENT OF BENEFITS 2021-12-29 17:31:06 Sintia r Unassigned, Silas [facility] MEDICAL RELEASE/CLEARANCE FORMS 2021-12-14 05:01:00 Doctor Unassigned, Silas [facility] NOTICE OF BILLING PRACTICES FOR MEDICARE PATIENTS 2021-12-08 14:33:50 Doctor Unassigned, Silas [facility] MEDICAL RELEASE/CLEARANCE FORMS 2021-11-25 05:01:00 Doctor Unassigned, Silas [facility] XR, hip + pelvis, unilateral, 2 or 3 view 2021-11-02 00:00:00 [facility] POCT URINALYSIS 2021-10-20 15:58:00 Kelly [facility] HB ECG ROUTINE & RHYTHM STRIP 2021-05-09 16:14:24 Maricarmen Nguyen [facility] Plan of Care Planned Activity Planned Date Details Comments Source Future Appointment 2023-05-02 09:30:00 Vineet Weeks, [address] [place] [address] [facility] Instructions [facility] Encounters Start Date/Time End Date/Time Encounter Type Admission Type Attending Clinicians Care Facility Care Department Encounter ID Source 2021-10-10 12:15:00 Outpatient Cole, Patric [facility] [id number] [facility] 2021-09-06 08:26:01 Outpatient Cole, Patric [facility] [id number] [facility] 2021-06-07 14:54:02 Outpatient ColePatric [facility] [id number] [facility] 2021-05-23 15:27:02 Outpatient ColePatric [facility] [id number] [facility] 2021-04-06 12:20:03 Outpatient Cole, Patric [facility] [id number] [facility] 2021-04-06 11:34:20 Outpatient Patric Cole [facility] [id number] [facility] 2021-03-07 10:45:00 Inpatient Andreas Rodriguez [facility] EDUARDO [id number] [facility] 2021-01-12 13:28:28 Outpatient [facility] [id number] [facility] 2021-01-10 11:46:45 Outpatient STEFANIE GOODMAN [facility] [id number] [facility] 2021-01-08 23:01:54 Emergency [facility] [id number] [facility] 2021-01-08 20:27:01 Emergency [facility] [id number] [facility] 2023-04-23 00:00:00 2023-04-23 00:00:00 Outpatient [place] [id number] [facility] 2023-04-19 06:14:00 2023-04-20 15:05:00 Inpatient Vineet Roe [facility] [id number] [facility] 2023-04-19 00:00:00 2023-04-19 00:00:00 Vineet Weeks MD: [address] [place] [address] , Ph. [phone] [place] [facility] [place] [facility]Surgery [id number] [facility] 2023-04-12 00:00:00 2023-04-12 00:00:00 Outpatient [place]_Osiel De La Vega AO AO [id number] [facility] 2023-04-05 00:00:00 2023-04-05 00:00:00 Telephone [facility]armen [facility] [id number] [id number] [facility] 2023-04-05 00:00:00 2023-04-05 00:00:00 Orders Only Doctor Unassigned, Silas [facility] [id number] [id number] [id number] [facility] 2023-04-04 00:00:00 2023-04-04 00:00:00 Fabricio Cartagena MD: [address] [place] [address] , Ph. [phone] AOSM [place] [facility] [place] [facility] [id number] [facility] 2023-03-26 00:00:00 2023-03-26 00:00:00 Outpatient FOG_Osiel _Libby_ AO AO [id number] [facility] 2023-03-22 00:00:00 2023-03-22 00:00:00 Outpatient FOG_Osiel _Libby_ AO AO [id number] [facility] 2023-01-24 00:00:00 2023-01-24 00:00:00 Outpatient FOG_Mathdanilo _Libby_ AO AO [id number] [facility] 2023-01-08 00:00:00 2023-01-08 00:00:00 Outpatient GC_GCBZW_Ka diyala_S PRIV PRIV [id number] [facility] 2023-01-07 00:00:00 2023-01-07 00:00:00 Outpatient GC_GCBZW_Ka diyala_S PRIV PRIV [id number] [facility] 2022-12-28 00:00:00 2022-12-28 00:00:00 Outpatient FOG_Mathews _Vasil_ AO AO [id number] [facility] 2022-12-28 00:00:00 2022-12-28 00:00:00 Outpatient FOG_Mathews _Vasil_ AO AO [id number] [facility] 2022-12-11 00:00:00 2022-12-11 00:00:00 Outpatient FOG_Mathews _Vasil_MD AOSM AOSM [id number] [facility] 2022-12-11 00:00:00 2022-12-11 00:00:00 Outpatient FOG_Mathews _Vasil_MD AOSM AOSM [id number] [facility] 2022-12-11 00:00:00 2022-12-11 00:00:00 Outpatient FOG_Mathews _Vasil_MD AOSM AOSM [id number] [facility] 2022-09-11 00:00:00 2022-09-11 00:00:00 Outpatient FOG_Mathews _Vasil_MD AOSM AOSM [id number] [facility] 2022-08-18 00:00:00 2022-08-18 00:00:00 Outpatient FOG_Mathews _Vasil_MD AOSM AOSM [id number] [facility] 2022-08-15 00:00:00 2022-08-15 00:00:00 Outpatient FOG_Mathews _Vasil_MD AOSM AOSM [id number] [facility] 2022-08-08 00:00:00 2022-08-08 00:00:00 Outpatient FOG_Mathews _Vasil_MD AOSM AOSM [id number] [facility] 2022-08-08 00:00:00 2022-08-08 00:00:00 Outpatient FOG_Mathews _Vasil_MD AOSM AOSM [id number] [facility] 2022-08-08 00:00:00 2022-08-08 00:00:00 Outpatient FOG_Mathews _Vasil_MD AOSM AOSM [id number] [facility] 2022-07-29 00:00:00 2022-07-29 00:00:00 Outpatient FOG_Mathews _Vasil_MD AOSM AOSM [id number] [facility] 2022-07-19 00:00:00 2022-07-19 00:00:00 Outpatient FOG_Mathews _Vasil_MD AOSM AOSM [id number] [facility] 2022-07-19 00:00:00 2022-07-19 00:00:00 Outpatient FOG_Mathews _Vasil_MD AOSM AOSM [id number] [facility] 2022-07-11 00:00:00 2022-07-11 00:00:00 Outpatient FOG_Mathews _Vasil_MD AOSM AOSM [id number] [facility] 2022-06-16 00:00:00 2022-06-16 00:00:00 Outpatient FOG_Mathews _Vasil_MD AOSM AOSM [id number] [facility] 2022-06-14 00:00:00 2022-06-14 00:00:00 Fabricio Cartagena MD: [address] [place] [address] , Ph. [phone] [place]M [place] [facility] [place] [facility] [id number] [facility] 2022-06-10 00:00:00 2022-06-10 00:00:00 Outpatient FOG_Mathews _Vasil_MD AOSM AOSM [id number] [facility] 2022-06-10 00:00:00 2022-06-10 00:00:00 Outpatient FOG_Mathews _Vasil_MD AOSM AOSM [id number] [facility] 2022-06-10 00:00:00 2022-06-10 00:00:00 Outpatient FOG_Mathews _Vasil_MD AOSM AOSM [id number] [facility] 2022-05-30 00:00:00 2022-05-30 00:00:00 Outpatient FOG_Mathews _Vasil_MD AOSM AOSM [id number] [facility] 2022-05-12 00:00:00 2022-05-12 00:00:00 Outpatient FOG_Mathews _Vasil_MD AOSM AOSM [id number] [facility] 2022-05-08 00:00:00 2022-05-08 00:00:00 Outpatient FOG_Mathews _Vasil_MD AOSM AOSM [id number] [facility] 2022-05-08 00:00:00 2022-05-08 00:00:00 Outpatient FOG_Mathews _Vasil_MD AOSM AOSM [id number] [facility] 2022-05-03 00:00:00 2022-05-03 00:00:00 Outpatient FOG_Mathews _Vasil_MD AOSM AOSM [id number] [facility] 2022-05-02 00:00:00 2022-05-02 00:00:00 Outpatient FOG_Mathews _Vasil_MD AOSM AOSM [id number] [facility] 2022-04-28 00:00:00 2022-04-28 00:00:00 Vineet Weeks MD: [address] [place] [address] , Ph. [phone] AOSM [place] [facility] [place] [facility] [id number] [facility] 2022-04-19 00:00:00 2022-04-19 00:00:00 Outpatient FOG_Mathews _Vasil_MD AOSM AOSM [id number] [facility] 2022-04-19 00:00:00 2022-04-19 00:00:00 Outpatient FOG_Mathews _Vasil_MD AOSM AOSM [id number] [facility] 2022-04-19 00:00:00 2022-04-19 00:00:00 Outpatient FOG_Mathews _Vasil_MD AOSM AOSM [id number] [facility] 2022-04-19 00:00:00 2022-04-19 00:00:00 Outpatient FOG_Mathews _Vasil_MD AOSM AOSM [id number] [facility] 2022-04-11 10:00:00 2022-04-11 10:00:00 Outpatient [facility] [id number] [facility] 2022-03-15 00:00:00 2022-03-15 00:00:00 Outpatient FOG_Mathews _Vasil_ AOSM AOSM [id number] [facility] 2022-03-15 00:00:00 2022-03-15 00:00:00 Fabricio Cartagena MD: [address] [place] [address] , Ph. [phone] [place]OSM [place] [facility] [place] [facility] [id number] [facility] 2022-03-06 00:00:00 2022-03-06 00:00:00 Outpatient FOG_Mathews _Vasil_ AOSM AOSM [id number] [facility] 2022-03-06 00:00:00 2022-03-06 00:00:00 Outpatient FOG_Mathews _Vasil_MD AOSM AOSM [id number] [facility] 2022-03-06 00:00:00 2022-03-06 00:00:00 Outpatient FOG_Mathews _Vasil_MD AOSM AOSM [id number] [facility] 2022-02-17 00:00:00 2022-02-17 00:00:00 Outpatient FOG_Mathews _Vasil_MD AOSM AOSM [id number] [facility] 2022-02-15 00:00:00 2022-02-15 00:00:00 Outpatient FOG_Osiel De La Vega AOSM AOSM [id number] [facility] 2022-02-15 00:00:00 2022-02-15 00:00:00 Fabricio Cartagena MD: [address] [place] [address] , Ph. [phone] AOSM [place] - [facility] [place] [facility] [id number] [facility] 2022-02-07 00:00:00 2022-02-07 00:00:00 Outpatient FOG_Osiel De La Vega AOSM AOSM [id number] [facility] 2022-02-06 00:00:00 2022-02-06 00:00:00 Outpatient FOG_Osiel De La Vega AOSM AOSM [id number] [facility] 2022-01-31 00:00:00 2022-01-31 00:00:00 Outpatient FOG_Osiel De La Vega AOSM AOSM [id number] [facility] 2022-01-26 00:00:00 2022-01-26 00:00:00 Outpatient FOG_Osiel uBrgess_ AOSM AOSM [id number] [facility] 2022-01-19 08:01:00 2022-01-24 18:53:00 Inpatient Fabricio Cardoza [facility] [id number] [facility] 2022-01-24 00:00:00 2022-01-24 00:00:00 Outpatient FOG_Osiel De La Vega AOSM AOSM [id number] [facility] 2022-01-23 00:00:00 2022-01-23 00:00:00 Outpatient FOG_Osiel _Domitila AOSM AOSM [id number] [facility] 2022-01-19 00:00:00 2022-01-19 00:00:00 Fabricio Cartagena MD: [address] [place] [address] , Ph. [phone] [place] [facility] [place] [facility] [id number] [facility] 2021-12-29 13:00:00 2021-12-29 16:09:11 [facility] [id number] [facility] 2021-12-29 13:00:00 2021-12-29 13:20:00 [facility] 1.2.840.114 350.1.13.10 [id number] [id number] [facility] 2021-12-29 00:00:00 2021-12-29 00:00:00 Orders Only Doctor Unassigned, Silas [facility] [id number] 350.1.13.10 [id number] [id number] [facility] 2021-12-22 00:00:00 2021-12-22 00:00:00 Outpatient [place]_Osiel De La Vega AO AO [id number] [facility] 2021-12-16 00:00:00 2021-12-16 00:00:00 Outpatient [place]_Osiel De La Vega AO AO [id number] [facility] 2021-12-15 00:00:00 2021-12-15 00:00:00 [facility] 1.2.840.114 350.1.13.10 4.2.7.2.686 [id number] [facility] 2021-12-14 00:00:00 2021-12-14 00:00:00 [facility] 1.2.840.114 350.1.13.10 4.2.7.2.686 [id number] [facility] 2021-12-14 00:00:00 2021-12-14 00:00:00 Orders Only Doctor Unassigned, Silas [facility] 1.2.840.114 350.1.13.10 4.2.7.2.686 [id number] [facility] 2021-12-13 00:00:00 2021-12-13 00:00:00 [facility] 1.2.840.114 350.1.13.10 4.2.7.2.686 [id number] [facility] 2021-12-08 09:33:57 2021-12-08 23:59:00 [id number] [facility] 2021-12-08 00:00:00 2021-12-08 00:00:00 Orders Only Doctor Unassigned, Silas [facility] 1.2.840.114 350.1.13.10 4.2.7.2.686 [id number] [facility] 2021-12-02 16:09:00 2021-12-02 16:09:00 Outpatient Fabricio CardozaCL LABO [id number] [facility] 2021-12-02 16:09:00 2021-12-02 16:09:00 Outpatient Fabricio CartagenaCL LABO [id number] 81 [facility] 2021-12-02 10:27:00 2021-12-02 10:27:00 Outpatient Fabricio Cardoza [facility] RADI [id number] [facility] 2021-12-02 10:27:00 2021-12-02 10:27:00 Outpatient Fabricio Cardoza [facility] RADI [id number] [facility] 2021-11-25 00:00:00 2021-11-25 00:00:00 Telephone PatrickMaricarmen [facility] 1..840.114 350.1.13.10 4.2.7.2.686 [id number] [facility] 2021-11-25 00:00:00 2021-11-25 00:00:00 Orders Only Doctor Unassigned, Silas [facility] 1..840.114 350.1.13.10 4.2.7.2.686 [id number] [facility] 2021-11-24 00:00:00 2021-11-24 00:00:00 Outpatient FOG_Osiel De La Vega AO AO [id number] [facility] 2021-11-21 16:22:00 2021-11-21 16:22:00 Outpatient Fabricio Cardoza HCACL LABO [id number] 87 [facility] 2021-11-21 09:00:00 2021-11-21 09:01:00 Outpatient Fabricio Cardoza HCATO 3DAY [id number] [facility] 2021-11-11 00:00:00 2021-11-11 00:00:00 Outpatient FOG_Osiel De La Vega AOSM AO [id number] [facility] 2021-11-02 00:00:00 2021-11-02 00:00:00 Outpatient FOG_Osiel De La Vega AOSM AO [id number] [facility] 2021-11-02 00:00:00 2021-11-02 00:00:00 Fabricio Cartagena MD: [address] [place] [address] , Ph. [phone] AOSM [place] - [facility] [place] [facility] [id number] [facility] 2021-11-02 00:00:00 2021-11-02 00:00:00 Outpatient Fabricio Cartagena AOSM AOSM [id number] 2021-10-20 11:00:00 2021-10-20 11:20:08 Outpatient R [facility] [id number] [facility] 2021-10-20 11:00:00 2021-10-20 11:20:00 Urgent Care [facility]em [facility] 1.2.840.114 350.1.13.10 4.2.7.2.686 [id number] [facility] 2021-09-28 00:00:00 2021-09-28 00:00:00 Outpatient [place]_Osiel _Libby_ AOSM AOSM [id number] [facility] 2021-09-21 00:00:00 2021-09-21 00:00:00 Telephone Maricarmen Nguyen [facility] [id number] [facility] 2021-09-06 00:00:00 2021-09-06 00:00:00 OFFICE VISIT ESTAB PT LEVEL 4 [facility] [id number] [facility] 2021-07-13 00:00:00 2021-07-13 00:00:00 (TEL) [facility] [id number] [facility] 2021-07-07 00:00:00 2021-07-07 00:00:00 Postop visit [facility] [id number] [facility] 2021-07-04 00:00:00 2021-07-04 00:00:00 (TEL) [facility] [id number] [facility] 2021-06-23 00:00:00 2021-06-23 00:00:00 (TEL) [facility] [id number] [facility] 2021-06-08 09:00:00 2021-06-08 09:00:00 [facility] [id number] 2021-06-07 10:00:00 2021-06-07 10:00:00 [facility] [id number] [facility] 2021-06-07 10:00:00 2021-06-07 10:00:00 [facility] [id number] [facility] 2021-06-07 00:00:00 2021-06-07 00:00:00 NON-BILLAB LE VISIT [facility] [id number] [facility] 2021-06-06 10:00:00 2021-06-06 10:00:00 Outpatient R [facility] [id number] [facility] 2021-05-09 09:40:00 2021-05-09 10:48:25 [facility] [id number] [facility] 2021-05-09 09:40:00 2021-05-09 10:48:25 [facility] [place] 1.2.840.114 350.1.13.10 4.2.7.2.686 [id number] [facility] 2021-05-09 09:40:00 2021-05-09 10:48:25 [facility] [id number] 2021-05-09 09:40:00 2021-05-09 10:48:25 [facility] [id number] [facility] 2021-05-09 00:00:00 2021-05-09 00:00:00 Orders Only Doctor Unassigned, Silas [facility] 1.840.114 350.1.13.10 4.2.7.2.686 [id number] [facility] 2021-04-11 08:06:01 2021-04-11 23:59:00 [facility] [id number] [facility] 2021-04-11 08:00:00 2021-04-11 23:59:00 [facility] 1.840.114 350.1.13.10 4.2.7.2.686 [id number] [facility] 2021-04-04 00:00:00 2021-04-04 00:00:00 [facility] [id number] [facility] 2021-03-29 11:00:00 2021-03-29 11:00:00 Outpatient R MARCK HANNA, [facility]CK [facility] [id number] [facility] 2021-03-25 11:00:00 2021-03-25 11:50:59 Outpatient [facility] [id number] [facility] 2021-03-25 11:00:00 2021-03-25 11:50:59 Office Visit [facility] 1.840.114 350.1.13.10 4.2.7.2.686 [id number] [facility] 2021-03-25 11:00:00 2021-03-25 11:50:59 Outpatient [facility] [id number] [facility] 2021-03-25 00:00:00 2021-03-25 00:00:00 Orders Only Doctor Unassigned, Silas [facility] 1.840.114 350.1.13.10 4.2.7.2.686 [id number] [facility] 2021-03-21 07:45:00 2021-03-21 08:00:00 It Business Process Architect Visit Pob, Adc Lab Main [facility] 1.2840.114 350.1.13.10 4.2.7.2.686 [id number] [facility] 2021-03-21 07:45:00 2021-03-21 07:45:00 Outpatient R [facility] [id number] [facility] 2021-02-18 10:00:00 2021-02-18 10:00:00 Outpatient R [facility] [id number] [facility] 2021-02-17 00:00:00 2021-02-17 00:00:00 [facility] 1.2840.114 350.1.13.10 4.2.7.2.686 [id number] [facility] 2021-02-14 00:00:00 2021-02-14 00:00:00 Orders Only Doctor Unassigned, Silas [facility] 1.2840.114 350.1.13.10 4.2.7.2.686 [id number] [facility] 2021-02-08 00:00:00 2021-02-08 00:00:00 [facility] 1.2840.114 350.1.13.10 4.2.7.2.686 [id number] [facility] 2021-01-10 00:00:00 2021-01-10 00:00:00 [facility] 1.2840.114 350.1.13.10 4.2.7.2.686 [id number] [facility] 2021-01-07 10:00:00 2021-01-07 10:27:04 Outpatient R SHANNAN ROY [facility] [id number] [facility] 2021-01-07 09:56:23 2021-01-07 10:27:04 [facility] 1.2.840.114 350.1.13.10 4.2.7.2.686 [id number] [facility] 2021-01-07 10:00:00 2021-01-07 10:00:00 Outpatient Evaristo SHANNAN ROY [facility] [id number] [facility] 2021-01-03 00:00:00 2021-01-03 00:00:00 [facility] 1.2.840.114 350.1.13.10 4.2.7.2.686 [id number] [facility] 2021-01-03 00:00:00 2021-01-03 00:00:00 Telephone Shannan Roy [facility] Building 1.2.840.114 350.1.13.10 4.2.7.2.686 [id number] [facility] 2020-12-30 08:40:00 2020-12-30 23:59:00 Hospital Encounter Radiology [facility] 1.2.840.114 350.1.13.10 4.2.7.2.686 [id number] [facility] 2020-12-30 10:30:00 2020-12-30 10:30:00 Outpatient ERICA LOVE [facility] [id number] [facility] 2020-12-30 08:59:10 2020-12-30 09:14:10 It Business Process Architect Visit Pob, Adc Lab Main Kirill, [facility] 1.2.840.114 350.1.13.10 4.2.7.2.686 [id number] [facility] 2020-12-28 09:58:42 2020-12-28 23:59:00 Hospital Encounter Radiology [facility] 1.2.840.114 350.1.13.10 4.2.7.2.686 [id number] [facility] 2020-12-28 00:00:00 2020-12-28 00:00:00 Outpatient R RADIOLOGY [facility] [id number] [facility] 2020-12-28 00:00:00 2020-12-28 00:00:00 Orders Only Doctor Unassigned, Silas [facility] 1.2.840.114 350.1.13.10 4.2.7.2.686 [id number] [facility] 2020-11-12 09:30:00 2020-11-12 09:30:00 Outpatient R SHANNAN ROY [facility] [id number] [facility] 2020-11-12 00:00:00 2020-11-12 00:00:00 Telephone Piedad Cabaardeborah [facility] Building 1.2.840.114 350.1.13.10 4.2.7.2.686 [id number] [facility] 2020-11-08 07:50:52 2020-11-08 23:59:00 Hospital Encounter Erica Caba [facility] 1.2.840.114 350.1.13.10 4.2.7.2.686 [id number] [facility] 2020-11-08 09:00:00 2020-11-08 09:00:00 Outpatient R SHANNAN ROY [facility] [id number] [facility] 2020-11-08 00:00:00 2020-11-08 00:00:00 Outpatient R ERICA CABA PIEDAD CABAFLORENCEDeborah [facility] [id number] [facility] 2020-11-05 13:00:00 2020-11-05 13:00:00 Outpatient SHANNAN DAVIS [facility] [id number] [facility] 2020-10-29 13:48:11 2020-10-29 14:15:23 Office Visit CabaHeatherdeborah [facility] 1.2.840.114 350.1.13.10 4.2.7.2.686 [id number] [facility] 2020-10-29 14:00:00 2020-10-29 14:00:00 Outpatient R HEATHER CABAPIEDAD BLOCKPRDeborah [facility] [id number] [facility] 2020-10-11 10:00:00 2020-10-11 10:00:00 Outpatient SHANNAN DAVIS [facility] [id number] [facility] 2020-10-07 00:00:00 2020-10-07 00:00:00 Telephone Sana Gao [facility] 1.2.840.114 350.1.13.10 4.2.7.2.686 [id number] [facility] 2020-10-05 11:30:00 2020-10-05 11:30:00 Outpatient SANA VEGAS [facility] [id number] [facility] 2020-10-05 11:14:57 2020-10-05 11:29:57 It Business Process Architect Visit Pob, Adc Lab Main Sana Gao [facility] 1.2.840.114 350.1.13.10 4.2.7.2.686 [id number] [facility] 2020-10-05 00:00:00 2020-10-05 00:00:00 Orders Only Doctor Unassigned, Silas [facility] 1.2.840.114 350.1.13.10 4.2.7.2.686 [id number] [facility] 2020-09-30 09:00:00 2020-09-30 09:00:00 Outpatient ERICA LOVE SHIWAN [facility] [id number] [facility] 2020-09-17 00:00:00 2020-09-17 00:00:00 Telephone Perfecto Sana Wall [facility] Building 1.2.840.114 350.1.13.10 4.2.7.2.686 [id number] [facility] 2020-09-16 00:00:00 2020-09-16 00:00:00 Telephone Sana Gao [facility] 1.2.840.114 350.1.13.10 4.2.7.2.686 [id number] [facility] 2020-08-16 00:00:00 2020-08-16 00:00:00 Telephone Eusebio [facility] 1.2.840.114 350.1.13.10 4.2.7.2.686 [id number] [facility] 2020-08-12 10:23:08 2020-08-12 23:59:00 Hospital Encounter Radiology [facility] 1.2.840.114 350.1.13.10 4.2.7.2.686 [id number] [facility] 2020-08-12 10:25:23 2020-08-12 10:40:23 It Business Process Architect Visit Pob, Adc Lab Main Eusebio [facility] Building 1.2.840.114 350.1.13.10 4.2.7.2.686 [id number] [facility] 2020-08-12 00:00:00 2020-08-12 00:00:00 Outpatient R RADIOLOGY [facility] [id number] [facility] 2020-08-12 00:00:00 2020-08-12 00:00:00 Orders Only Doctor Unassigned, Silas [facility] 1.2.840.114 350.1.13.10 4.2.7.2.686 [id number] [facility] 2020-08-11 00:00:00 2020-08-11 00:00:00 Telephone Sana Gao [facility] 1.2.840.114 350.1.13.10 4.2.7.2.686 [id number] [facility] 2020-07-26 13:20:00 2020-07-26 13:20:00 Outpatient R GRACY MCKEON [facility] [id number] [facility] 2020-07-20 10:00:00 2020-07-20 10:00:00 Outpatient R JOHANNY KAPLAN [facility] [id number] [facility] 2020-07-12 00:00:00 2020-07-12 00:00:00 Telephone Sana Gao [facility] 1.2.840.114 350.1.13.10 4.2.7.2.686 [id number] [facility] 2020-07-08 10:28:55 2020-07-08 10:43:55 It Business Process Architect Visit Pob, Adc Lab Main Tri Chin [facility] Building 1.2.840.114 350.1.13.10 4.2.7.2.686 [id number] [facility] 2020-07-08 10:30:00 2020-07-08 10:30:00 Outpatient TRI DURAND [facility] [id number] [facility] 2020-07-08 00:00:00 2020-07-08 00:00:00 Telephone Sana Gao Mae [facility] Building 1.2840.114 350.1.13.10 4.2.7.2.686 [id number] [facility] 2020-07-08 00:00:00 2020-07-08 00:00:00 Orders Only Doctor Unassigned, Silas [facility] 1.2840.114 350.1.13.10 4.2.7.2.686 [id number] [facility] 2020-07-06 09:48:07 2020-07-06 10:54:20 Office Visit EusebioJohanny rodriguez [facility] 1.2840.114 350.1.13.10 4.2.7.2.686 [id number] [facility] 2020-07-06 09:45:00 2020-07-06 09:45:00 [facility] [id number] [facility] 2020-06-30 16:54:53 2020-06-30 17:09:53 It Business Process Architect Visit Pob, Adc Lab Main Perfecto Sana Wall [facility] 1.2.840.114 350.1.13.10 4.2.7.2.686 [id number] [facility] 2020-06-30 17:00:00 2020-06-30 17:00:00 Outpatient R SANA GAO [facility] [id number] [facility] 2020-06-30 00:00:00 2020-06-30 00:00:00 Orders Only Doctor Unassigned, Silas [facility] 1.2840.114 350.1.13.10 4.2.7.2.686 [id number] [facility] 2020-06-28 00:00:00 2020-06-28 00:00:00 Telephone Sana Gao [facility] 1.2.840.114 350.1.13.10 4.2.7.2.686 [id number] [facility] 2020-06-21 10:25:21 2020-06-21 23:59:00 Hospital Encounter Radiology [facility] 1.2.840.114 350.1.13.10 4.2.7.2.686 [id number] [facility] 2020-06-21 00:00:00 2020-06-21 00:00:00 Outpatient R RADIOLOGY [facility] [id number] [facility] 2020-06-04 00:00:00 2020-06-04 00:00:00 Case Management Sana Gao [facility] 1.2.840.114 350.1.13.10 4.2.7.2.686 [id number] [facility] 2020-06-03 16:10:40 2020-06-03 23:59:00 Hospital Encounter Sana Gao [facility] 1.2.840.114 350.1.13.10 4.2.7.2.686 [id number] [facility] 2020-06-03 14:28:14 2020-06-03 16:02:32 Nurse Visit Nurse, [facility] Sana Gao [facility] 1.2.840.114 350.1.13.10 4.2.7.2.686 [id number] [facility] 2020-06-03 14:30:00 2020-06-03 14:30:00 Outpatient R [facility] [id number] [facility] 2020-06-03 00:00:00 2020-06-03 00:00:00 Orders Only Doctor Unassigned, Silas [facility] 1.840.114 350.1.13.10 4.2.7.2.686 [id number] [facility] 2020-06-02 12:51:03 2020-06-02 13:06:03 It Business Process Architect Visit Pob, Adc Lab Main Sana Gao [facility] Building 1..840.114 350.1.13.10 4.2.7.2.686 [id number] [facility] 2020-06-02 13:00:00 2020-06-02 13:00:00 Outpatient SANA VEGAS [facility] [id number] [facility] 2020-06-01 00:00:00 2020-06-01 00:00:00 Patient Outreach Paul Brand [facility] 1..840.114 350.1.13.10 4.2.7.2.686 [id number] [facility] 2020-05-17 00:00:00 2020-05-17 00:00:00 Outpatient STLMLC ST[facility]MLC [id number] [facility] 2020-05-11 10:39:02 2020-05-11 11:23:09 Office Visit Sana Gao [facility] 1..840.114 350.1.13.10 4.2.7.2.686 [id number] [facility] 2020-05-11 10:45:00 2020-05-11 10:45:00 Outpatient R SANA GAO [facility] [id number] [facility] 2020-04-27 10:30:00 2020-04-27 10:30:00 Outpatient SANA VEGAS [facility] [id number] [facility] 2020-04-22 09:35:00 2020-04-22 10:45:00 Emergency Osito Rodriguez [facility] 1.2840.114 350.1.13.10 4.2.7.2.686 [id number] [facility] 2020-04-13 00:00:00 2020-04-13 00:00:00 Telephone Geovany Carbone [facility] Building 1.2840.114 350.1.13.10 4.2.7.2.686 [id number] [facility] 2020-04-08 18:57:00 2020-04-08 21:59:00 Emergency Oscar Hill [facility] 1.2840.114 350.1.13.10 4.2.7.2.686 [id number] [facility] 2020-04-07 00:00:00 2020-04-07 00:00:00 Telephone Kendra Oden [facility] Building 1.2840.114 350.1.13.10 4.2.7.2.686 [id number] [facility] 2020-04-05 10:00:00 2020-04-05 10:00:00 Outpatient Evaristo GEOVANY CARBONE [facility] [id number] [facility] 2020-04-05 09:08:27 2020-04-05 09:23:27 It Business Process Architect Visit Pob, Adc Lab Main Geovany Carbone [facility] Professio nal Building 1.2840.114 350.1.13.10 4.2.7.2.686 [id number] [facility] 2020-04-05 00:00:00 2020-04-05 00:00:00 Outpatient STLMLC STLMLC [id number] [facility] 2020-04-05 00:00:00 2020-04-05 00:00:00 Orders Only Doctor Unassigned, Silas [facility] 1.2840.114 350.1.13.10 4.2.7.2.686 [id number] [facility] 2020-04-02 00:00:00 2020-04-02 00:00:00 Telephone Jn Odenkhan [facility] 1.2.840.114 350.1.13.10 4.2.7.2.686 [id number] [facility] 2020-04-02 00:00:00 2020-04-02 00:00:00 Telephone Geovany Carbone [facility] 1.2.840.114 350.1.13.10 4.2.7.2.686 [id number] [facility] 2020-03-22 00:00:00 2020-03-22 00:00:00 Outpatient STLMLC STLMLC [id number] [facility] 2020-03-10 00:00:00 2020-03-10 00:00:00 Outpatient STLMLC STLMLC [id number] [facility] 2020-02-24 10:30:00 2020-02-24 10:30:00 Outpatient ELIEL BRITO [facility] [id number] [facility] 2020-02-10 00:00:00 2020-02-10 00:00:00 Outpatient STLMLC STLMLC [id number] [facility] 2020-01-12 00:00:00 2020-01-12 00:00:00 Outpatient STLMLC ST[facility]MLC [id number] [facility] 2019-11-28 00:00:00 2019-11-28 00:00:00 Telephone Aisha Critical access hospital [facility] 1.2.840.114 350.1.13.10 4.2.7.2.686 [id number] [facility] 2019-11-25 13:17:08 2019-11-25 14:58:15 Office Visit Aisha Critical access hospital [facility] 1.2.840.114 350.1.13.10 4.2.7.2.686 [id number] [facility] 2019-11-25 13:30:00 2019-11-25 13:30:00 Outpatient KENDRA HAM [facility] [id number] [facility] 2019-11-25 00:00:00 2019-11-25 00:00:00 Orders Only Doctor Unassigned, Silas [facility] 1.2.840.114 350.1.13.10 4.2.7.2.686 [id number] [facility] 2019-11-18 09:30:00 2019-11-18 09:30:00 Outpatient JN HAMKHAN [facility] [id number] [facility] 2019-10-13 10:00:00 2019-10-13 10:00:00 Outpatient [facility] [id number] [facility] 2018-11-29 00:00:00 2018-11-29 00:00:00 Telephone Sana Gao [facility] 1.2.840.114 350.1.13.10 4.2.7.2.686 [id number] 2018-11-29 00:00:00 2018-11-29 00:00:00 Telephone Sana Gao [facility] 1.2.840.114 350.1.13.10 4.2.7.2.686 [id number] [facility] 2018-10-24 15:15:31 2018-10-24 15:41:04 Office Visit Erica Caba [facility] 1.2.840.114 350.1.13.10 4.2.7.2.686 [id number] 2018-10-24 15:15:31 2018-10-24 15:41:04 Office Visit Piedad Cabarenetta [facility] 1.2840.114 350.1.13.10 4.2.7.2.686 [id number] [facility] 2018-10-16 00:00:00 2018-10-16 00:00:00 Orders Only Doctor Unassigned, Silas [facility] 1.840.114 350.1.13.10 4.2.7.2.686 [id number] [facility] Results Test Description Test Time Test Comments Results Result Co mments Source CBC W/AUTO [id number] 05:41:00* Test Item Value Reference Range Interpretation Comme nts WHITE BLOOD CELL (test code = WBC) 8.7 K/mm3 5.5-11.0 N RED BLOOD CELL (test code = RBC) 4.34 M/mm3 4.2-5.4 N HEMOGLOBIN (test code = HGB) 10.3 g/dL 12-16 L HEMATOCRIT (test code = HCT) 33.5 % 37-47 L MEAN CELL VOLUME (test code = MCV) 77 fL 80-98 L MEAN CELL HGB (test code = MCH) 23.7 pg 27-34 L MEAN CELL HGB CONCENTRATION (test code = MCHC) 30.7 g/dL 30.8-34.1 L RED CELL DISTRIBUTION WIDTH (test code = RDW) 15.1 % 11-16 N PLT (test code = PLT) 306 K/mm3 130-400 N MEAN PLATELET VOLUME (test c ode = MPV) 11.6 fL 8.9-12.1 N NEUTROPHIL % (test code = NT%) 66.5 % 45-70 N LYMPHOCYTE % (test code = LY%) 20.3 % 20-40 N MONOCYTE % (test code = MO%) 8.7 % 3-10 N EOSINOPHIL % (test code = EO%) 3.3 % 1-5 N BASOPHIL % (test code = BA%) 0.7 % 0.0-1.1 N NEUTROPHIL # (test code = NT#) 5.81 K/mm3 2.00-7.50 N LYMPHOCYTE # (test code = LY#) 1.77 K/mm3 1.50-4.00 N MONOCYTE # (test code = MO#) 0.76 K/mm3 0.2-0.8 N EOSINOPHIL # (test code = EO#) 0.29 K/mm3 0.04-0.4 N BASOPHIL # (test code = BA#) 0.06 K/mm3 0.02-0.10 N MANUAL DIFF REQUIRED (test c ode = MDIFF) NO MANUAL DIFF NUCLEATED RED BLOOD CELL (te st code = NRBC) 0 % 0-0 N CBC W Auto Differential panel - [id number] 04:00:00* Test Item Value Reference Range Interpretation Comme nts white blood cell (test code = white blood cell) 8.7 K/mm3 5.5-11.0 red blood cell (test code = red blood cell) 4.34 M/mm3 4.2-5.4 hemoglobin (test code = hemoglobin) 10.3 g/dL 12-16 L hematocrit (test code = hematocrit) 33.5 % 37-47 L mean cell volume (test code = mean cell volume) 77 fL 80-98 L mean cell HGB (test code = m pete cell HGB) 23.7 pg 27-34 L mean cell HGB concentration (test code = mean cell HGB concentration) 30.7 g/dL 30.8-34.1 L red cell distribution width (test code = red cell distribution width) 15.1 % 11-16 plt (test code = plt) 306 K/mm3 130-400 mean platelet volume (test c ode = mean platelet volume) 11.6 fL 8.9-12.1 neutrophil % (test code = neutrophil %) 66.5 % 45-70 lymphocyte % (test code = lymphocyte %) 20.3 % 20-40 monocyte % (test code = mono cyte %) 8.7 % 3-10 eosinophil % (test code = eosinophil %) 3.3 % 1-5 basophil % (test code = baso fritz %) 0.7 % 0.0-1.1 neutrophil # (test code = neutrophil #) 5.81 K/mm3 2.00-7.50 lymphocyte # (test code = lymphocyte #) 1.77 K/mm3 1.50-4.00 monocyte # (test code = mono cyte #) 0.76 K/mm3 0.2-0.8 eosinophil # (test code = eosinophil #) 0.29 K/mm3 0.04-0.4 basophil # (test code = baso fritz #) 0.06 K/mm3 0.02-0.10 manual diff required (test c ode = manual diff required) no manual diff nucleated red blood cell (te st code = nucleated red blood cell) 0 % 0-0 performing lab: (test code = performing lab:) [id number] 04:00:00* Test Item Value Reference Range Interpretation Comme nts sodium (test code = sodium) 139 mmol/L 136-145 potassium (test code = potassium) 4.9 mmol/L 3.5-5.1 chloride (test code = chloride) 103.0 mmol/L 98-107 carbon dioxide (test code = carbon dioxide) 28.9 mmol/L 21-32 glucose (test code = glucose) 80 mg/dL 74-106 blood urea nitrogen (test co de = blood urea nitrogen) 14 mg/dL 7-18 glomerular filtration rate ( test code = glomerular filtration rate) 59.3 >60 L creatinine (test code = creatinine) 1.04 mg/dL 0.55-1.02 H calcium (test code = calcium) 8.1 mg/dL 8.5-10.1 L performing lab: (test code = performing lab:) [id number] 20:33:00* Test Item Value Reference Range Interpretation Comme nts AB HEPATITIS A IGM (test cod e = HAVMAB) NONREACTIVE NONREACTIVE AG HEPATITIS B SURFACE (test code = HBSAG) NONREACTIVE NONREACTIVE AB HEPATITIS B CORE IGM (manuel t code = HBCMAB) NONREACTIVE NONREACTIVE AB HEPATITIS C (test code = HCVAB) NONREACTIVE NONREACTIVE SIGNAL TO CUTOFF (test code = CUTOFF) 0.11 <0.80 N AB HIV 1 20:33:00* Test Item Value Reference Range Interpretation Comme nts AB HIV 1 2 (test code = [id number]) NONREACTIVE NONREACTIVE Done by [employer] HIV Ag/Ab Combo Screen C REACTIVE [id number] 20:33:00* Test Item Value Reference Range Interpretation Comme nts C REACTIVE PROTEIN (test cod e = CRP) 0.43 mg/dL < 0.3 H ACUTE HEPATITIS [id number] 20:33:00* Test Item Value Reference Range Interpretation Comme nts AB HEPATITIS A IGM (test cod e = HAVMAB) NONREACTIVE NONREACTIVE AG HEPATITIS B SURFACE (test code = HBSAG) NONREACTIVE NONREACTIVE AB HEPATITIS B CORE IGM (manuel t code = HBCMAB) NONREACTIVE NONREACTIVE AB HEPATITIS C (test code = HCVAB) NONREACTIVE NONREACTIVE SIGNAL TO CUTOFF (test code = CUTOFF) 0.11 <0.80 AB HIV 20:33:00* Test Item Value Reference Range Interpretation Comme nts AB HIV 1 (test code = HIV1AB) NONREACTIVE NONREACTIVE DONE AT: [address] [address] by [employer] HIV Ag/Ab Combo Screen SED [id number] 14:01:00* Test Item Value Reference Range Interpretation Comme nts SED RATE (test code = SEDW) 25 mm/hr 0-30 N COMPREHENSIVE METABOLIC [id number] 13:30:00* Test Item Value Reference Range Interpretation Comme nts SODIUM (test code = NA) 136 mmol/L 136-145 N POTASSIUM (test code = K) 4.5 mmol/L 3.5-5.1 N CHLORIDE (test code = CL) 99.0 mmol/L 98-107 N CARBON DIOXIDE (test code = CO2) 28.2 mmol/L 21-32 N GLUCOSE (test code = GLU) 93 mg/dL 74-106 N BLOOD UREA NITROGEN (test code = BUN) 14 mg/dL 7-18 N GLOMERULAR FILTRATION RATE (test code = GFR) 54.8 >60 L The Glomerular Filtration Rate is a calculated parameterbased on serum Creatinine, patient age and sex. GFR valuesless than 60 mL/min/1.73 square meters are indicative ofChronic Kidney Disease. Values less than 15 mL/min/1.73square meters indicate Kidney failure. The calculation forGFR is based on the CKD-EPI (2020) calculation. This formulais race indifferent and is the recommended formula for GFRby the National Kidney Foundation for Adults.The GFR will not calculate if the sex is unknown or if thepatient's age is <18 years. CREATININE (test code = CREAT) 1.11 mg/dL 0.55-1.02 H TOTAL PROTEIN (test code = PROT) 7.6 g/dL 6.4-8.2 N ALBUMIN (test code = ALB) 3.4 g/dL 3.4-5.0 N GLOBULIN (test code = GLOB) 4.2 g/dL 2.2-4.2 N ALBUMIN/GLOBULIN RATIO (test code = A/G) 0.8 0.7-2.0 N CALCIUM (test code = CA) 9.3 mg/dL 8.5-10.1 N BILIRUBIN TOTAL (test code = BILT) 0.50 mg/dL 0.2-1.00 N SGOT/AST (test code = AST) 25.0 U/L 15-37 N SGPT/ALT (test code = ALT) 20.0 U/L 14-59 N ALKALINE PHOSPHATASE TOTAL (test code = ALKP) 128 U/L 46-116 H PROTHROMBIN [id number] 13:15:00* Test Item Value Reference Range Interpretation Comme nts PROTHROMBIN TIME PATIENT (test code = PTP) 12.3 secs 9.4-12.5 N INTERNATIONAL NORMAL RATIO (test code = INR) 1.10 <2.0 RECOMMENDED THER APEUTIC RANGE FOR ORAL ANTICOAGULANTTREATMENT: CONDITION INRProphylaxis of venous thrombosis in 2.0 - 3.0 high-risk medical or surgical patientsTreatment of venous thrombosis 2.0 - 3.0Prevention of embolism 2.0 - 3.0Prevention of recurrent embolism, or 3.0 - 4.5 patients with mechanical prosthetic intravascular valves IS PATIENT ON ANTICOAGULANTS ? [facility] been notified if Patient is on Heparin Drip? NOTHROMBOPLASTIN TIME [id number] 13:15:00* Test Item Value Reference Range Interpretation Comme nts PTT ACTIVATED (test code = APTT) 30.9 secs 25.1-36.5 N IS PATIENT ON ANTICOAGULANTS ? [facility] been notified if Patient is on Heparin Drip? NOCBC W/AUTO [id number] 13:01:00* Test Item Value Reference Range Interpretation Comme nts WHITE BLOOD CELL (test code = WBC) 6.5 K/mm3 5.5-11.0 N RED BLOOD CELL (test code = RBC) 4.59 M/mm3 4.2-5.4 N HEMOGLOBIN (test code = HGB) 10.9 g/dL 12-16 L HEMATOCRIT (test code = HCT) 35.3 % 37-47 L MEAN CELL VOLUME (test code = MCV) 77 fL 80-98 L MEAN CELL HGB (test code = MCH) 23.7 pg 27-34 L MEAN CELL HGB CONCENTRATION (test code = MCHC) 30.9 g/dL 30.8-34.1 N RED CELL DISTRIBUTION WIDTH (test code = RDW) 14.7 % 11-16 N PLT (test code = PLT) 282 K/mm3 130-400 N MEAN PLATELET VOLUME (test c ode = MPV) 11.3 fL 8.9-12.1 N NEUTROPHIL % (test code = NT%) 68.3 % 45-70 N LYMPHOCYTE % (test code = LY%) 19.1 % 20-40 L MONOCYTE % (test code = MO%) 8.2 % 3-10 N EOSINOPHIL % (test code = EO%) 3.6 % 1-5 N BASOPHIL % (test code = BA%) 0.5 % 0.0-1.1 N NEUTROPHIL # (test code = NT#) 4.41 K/mm3 2.00-7.50 N LYMPHOCYTE # (test code = LY#) 1.23 K/mm3 1.50-4.00 L MONOCYTE # (test code = MO#) 0.53 K/mm3 0.2-0.8 N EOSINOPHIL # (test code = EO#) 0.23 K/mm3 0.04-0.4 N BASOPHIL # (test code = BA#) 0.03 K/mm3 0.02-0.10 N MANUAL DIFF REQUIRED (test c ode = MDIFF) NO MANUAL DIFF NUCLEATED RED BLOOD CELL (te st code = NRBC) 0 % 0-0 N CBC W Auto Differential panel - [id number] 11:58:00* Test Item Value Reference Range Interpretation Comme nts white blood cell (test code = white blood cell) 6.5 K/mm3 5.5-11.0 red blood cell (test code = red blood cell) 4.59 M/mm3 4.2-5.4 hemoglobin (test code = hemoglobin) 10.9 g/dL 12-16 L hematocrit (test code = hematocrit) 35.3 % 37-47 L mean cell volume (test code = mean cell volume) 77 fL 80-98 L mean cell HGB (test code = m pete cell HGB) 23.7 pg 27-34 L mean cell HGB concentration (test code = mean cell HGB concentration) 30.9 g/dL 30.8-34.1 red cell distribution width (test code = red cell distribution width) 14.7 % 11-16 plt (test code = plt) 282 K/mm3 130-400 mean platelet volume (test c ode = mean platelet volume) 11.3 fL 8.9-12.1 neutrophil % (test code = neutrophil %) 68.3 % 45-70 lymphocyte % (test code = lymphocyte %) 19.1 % 20-40 L monocyte % (test code = mono cyte %) 8.2 % 3-10 eosinophil % (test code = eosinophil %) 3.6 % 1-5 basophil % (test code = baso fritz %) 0.5 % 0.0-1.1 neutrophil # (test code = neutrophil #) 4.41 K/mm3 2.00-7.50 lymphocyte # (test code = lymphocyte #) 1.23 K/mm3 1.50-4.00 L monocyte # (test code = mono cyte #) 0.53 K/mm3 0.2-0.8 eosinophil # (test code = eosinophil #) 0.23 K/mm3 0.04-0.4 basophil # (test code = baso fritz #) 0.03 K/mm3 0.02-0.10 manual diff required (test c ode = manual diff required) no manual diff nucleated red blood cell (te st code = nucleated red blood cell) 0 % 0-0 performing lab: (test code = performing lab:) [facility]2023-[facility]-04 11:58:00* Test Item Value Reference Range Interpretation Comme nts prothrombin time patient (te st code = prothrombin time patient) 12.3 secs 9.4-12.5 international normal ratio ( test code = international normal ratio) 1.10 <2.0 performing lab: (test code = performing lab:) [facility]in time [id number] 11:58:00 * Test Item Value Reference Range Interpretation Comme nts PTT activated (test code = P TT activated) 30.9 secs 25.1-36.5 performing lab: (test code = performing lab:) [facility] 2000 panel - Serum or [id number] 11:58:00* Test Item Value Reference Range Interpretation Comme nts sodium (test code = sodium) 136 mmol/L 136-145 potassium (test code = potassium) 4.5 mmol/L 3.5-5.1 chloride (test code = chloride) 99.0 mmol/L 98-107 carbon dioxide (test code = carbon dioxide) 28.2 mmol/L 21-32 glucose (test code = glucose) 93 mg/dL 74-106 blood urea nitrogen (test co de = blood urea nitrogen) 14 mg/dL 7-18 glomerular filtration rate ( test code = glomerular filtration rate) 54.8 >60 L creatinine (test code = creatinine) 1.11 mg/dL 0.55-1.02 H total protein (test code = t otal protein) 7.6 g/dL 6.4-8.2 albumin (test code = albumin) 3.4 g/dL 3.4-5.0 globulin (test code = globulin) 4.2 g/dL 2.2-4.2 albumin/globulin ratio (test code = albumin/globulin ratio) 0.8 0.7-2.0 calcium (test code = calcium) 9.3 mg/dL 8.5-10.1 bilirubin total (test code = bilirubin total) 0.50 mg/dL 0.2-1.00 SGOT/AST (test code = SGOT/AST) 25.0 U/L 15-37 SGPT/ALT (test code = SGPT/ALT) 20.0 U/L 14-59 alkaline phosphatase total ( test code = alkaline phosphatase total) 128 U/L 46-116 H performing lab: (test code = performing lab:) [facility] [id number] 11:58:00* Test Item Value Reference Range Interpretation Comme nts sed rate (test code = sed rate) 25 mm/HR 0-30 performing lab: (test code = performing lab:) [facility]CBC [facility] Auto Differential panel - [id number] 11:58:00* Test Item Value Reference Range Interpretation Comme nts white blood cell (test code = white blood cell) 6.5 K/mm3 5.5-11.0 red blood cell (test code = red blood cell) 4.59 M/mm3 4.2-5.4 hemoglobin (test code = hemoglobin) 10.9 g/dL 12-16 L hematocrit (test code = hematocrit) 35.3 % 37-47 L mean cell volume (test code = mean cell volume) 77 fL 80-98 L mean cell HGB (test code = m pete cell HGB) 23.7 pg 27-34 L mean cell HGB concentration (test code = mean cell HGB concentration) 30.9 g/dL 30.8-34.1 red cell distribution width (test code = red cell distribution width) 14.7 % 11-16 plt (test code = plt) 282 K/mm3 130-400 mean platelet volume (test c ode = mean platelet volume) 11.3 fL 8.9-12.1 neutrophil % (test code = neutrophil %) 68.3 % 45-70 lymphocyte % (test code = lymphocyte %) 19.1 % 20-40 L monocyte % (test code = mono cyte %) 8.2 % 3-10 eosinophil % (test code = eosinophil %) 3.6 % 1-5 basophil % (test code = baso fritz %) 0.5 % 0.0-1.1 neutrophil # (test code = neutrophil #) 4.41 K/mm3 2.00-7.50 lymphocyte # (test code = lymphocyte #) 1.23 K/mm3 1.50-4.00 L monocyte # (test code = mono cyte #) 0.53 K/mm3 0.2-0.8 eosinophil # (test code = eosinophil #) 0.23 K/mm3 0.04-0.4 basophil # (test code = baso fritz #) 0.03 K/mm3 0.02-0.10 manual diff required (test c ode = manual diff required) no manual diff nucleated red blood cell (te st code = nucleated red blood cell) 0 % 0-0 performing lab: (test code = performing lab:) [facility] MedicineProthrombin time (PT)2023-04-04 11:58:00* Test Item Value Reference Range Interpretation Comme nts prothrombin time patient (te st code = prothrombin time patient) 12.3 secs 9.4-12.5 international normal ratio ( test code = international normal ratio) 1.10 <2.0 performing lab: (test code = performing lab:) [facility]althromboplastin time [id number] 11:58:00 * Test Item Value Reference Range Interpretation Comme nts PTT activated (test code = P TT activated) 30.9 secs 25.1-36.5 performing lab: (test code = performing lab:) [facility] HospitalComprehensive [facility] 2000 panel - Serum or [id number] 11:58:00* Test Item Value Reference Range Interpretation Comme nts sodium (test code = sodium) 136 mmol/L 136-145 potassium (test code = potassium) 4.5 mmol/L 3.5-5.1 chloride (test code = chloride) 99.0 mmol/L 98-107 carbon dioxide (test code = carbon dioxide) 28.2 mmol/L 21-32 glucose (test code = glucose) 93 mg/dL 74-106 blood urea nitrogen (test co de = blood urea nitrogen) 14 mg/dL 7-18 glomerular filtration rate ( test code = glomerular filtration rate) 54.8 >60 L creatinine (test code = creatinine) 1.11 mg/dL 0.55-1.02 H total protein (test code = t otal protein) 7.6 g/dL 6.4-8.2 albumin (test code = albumin) 3.4 g/dL 3.4-5.0 globulin (test code = globulin) 4.2 g/dL 2.2-4.2 albumin/globulin ratio (test code = albumin/globulin ratio) 0.8 0.7-2.0 calcium (test code = calcium) 9.3 mg/dL 8.5-10.1 bilirubin total (test code = bilirubin total) 0.50 mg/dL 0.2-1.00 SGOT/AST (test code = SGOT/AST) 25.0 U/L 15-37 SGPT/ALT (test code = SGPT/ALT) 20.0 U/L 14-59 alkaline phosphatase total ( test code = alkaline phosphatase total) 128 U/L 46-116 H performing lab: (test code = performing lab:) [facility] [id number] 11:58:00* Test Item Value Reference Range Interpretation Comme nts sed rate (test code = sed rate) 25 mm/HR 0-30 performing lab: (test code = performing lab:) [facility] reactive [id number] 11:58:00* Test Item Value Reference Range Interpretation Comme nts C reactive protein (test cod e = C reactive protein) 0.43 mg/dL < 0.3 H performing lab: (test code = performing lab:) [facility] hepatitis [id number] 11:58:00* Test Item Value Reference Range Interpretation Comme nts Ab hepatitis A IgM (test cod e = Ab hepatitis A IgM) nonreactive nonreactive Ag hepatitis B surface (test code = Ag hepatitis B surface) nonreactive nonreactive Ab hepatitis B core IgM (manuel t code = Ab hepatitis B core IgM) nonreactive nonreactive Ab hepatitis C (test code = Ab hepatitis C) nonreactive nonreactive signal to cutoff (test code = signal to cutoff) 0.11 <0.80 performing lab: (test code = performing lab:) [facility] HIV 11:58:00* Test Item Value Reference Range Interpretation Comme nts Ab HIV 1 (test code = Ab HIV 1) nonreactive nonreactive performing lab: (test code = performing lab:) [facility] W Auto Differential panel - [id number] 11:58:00* Test Item Value Reference Range Interpretation Comme nts white blood cell (test code = white blood cell) 6.5 K/mm3 5.5-11.0 red blood cell (test code = red blood cell) 4.59 M/mm3 4.2-5.4 hemoglobin (test code = hemoglobin) 10.9 g/dL 12-16 L hematocrit (test code = hematocrit) 35.3 % 37-47 L mean cell volume (test code = mean cell volume) 77 fL 80-98 L mean cell HGB (test code = m pete cell HGB) 23.7 pg 27-34 L mean cell HGB concentration (test code = mean cell HGB concentration) 30.9 g/dL 30.8-34.1 red cell distribution width (test code = red cell distribution width) 14.7 % 11-16 plt (test code = plt) 282 K/mm3 130-400 mean platelet volume (test c ode = mean platelet volume) 11.3 fL 8.9-12.1 neutrophil % (test code = neutrophil %) 68.3 % 45-70 lymphocyte % (test code = lymphocyte %) 19.1 % 20-40 L monocyte % (test code = mono cyte %) 8.2 % 3-10 eosinophil % (test code = eosinophil %) 3.6 % 1-5 basophil % (test code = baso fritz %) 0.5 % 0.0-1.1 neutrophil # (test code = neutrophil #) 4.41 K/mm3 2.00-7.50 lymphocyte # (test code = lymphocyte #) 1.23 K/mm3 1.50-4.00 L monocyte # (test code = mono cyte #) 0.53 K/mm3 0.2-0.8 eosinophil # (test code = eosinophil #) 0.23 K/mm3 0.04-0.4 basophil # (test code = baso fritz #) 0.03 K/mm3 0.02-0.10 manual diff required (test c ode = manual diff required) no manual diff nucleated red blood cell (te st code = nucleated red blood cell) 0 % 0-0 performing lab: (test code = performing lab:) [facility] (PT)2023-04-04 11:58:00* Test Item Value Reference Range Interpretation Comme nts prothrombin time patient (te st code = prothrombin time patient) 12.3 secs 9.4-12.5 international normal ratio ( test code = international normal ratio) 1.10 <2.0 performing lab: (test code = performing lab:) [facility]oplast[facility] time [id number] 11:58:00 * Test Item Value Reference Range Interpretation Comme nts PTT activated (test code = P TT activated) 30.9 secs 25.1-36.5 performing lab: (test code = performing lab:) [facility]Com[facility] 2000 panel - Serum or [id number] 11:58:00* Test Item Value Reference Range Interpretation Comme nts sodium (test code = sodium) 136 mmol/L 136-145 potassium (test code = potassium) 4.5 mmol/L 3.5-5.1 chloride (test code = chloride) 99.0 mmol/L 98-107 carbon dioxide (test code = carbon dioxide) 28.2 mmol/L 21-32 glucose (test code = glucose) 93 mg/dL 74-106 blood urea nitrogen (test co de = blood urea nitrogen) 14 mg/dL 7-18 glomerular filtration rate ( test code = glomerular filtration rate) 54.8 >60 L creatinine (test code = creatinine) 1.11 mg/dL 0.55-1.02 H total protein (test code = t otal protein) 7.6 g/dL 6.4-8.2 albumin (test code = albumin) 3.4 g/dL 3.4-5.0 globulin (test code = globulin) 4.2 g/dL 2.2-4.2 albumin/globulin ratio (test code = albumin/globulin ratio) 0.8 0.7-2.0 calcium (test code = calcium) 9.3 mg/dL 8.5-10.1 bilirubin total (test code = bilirubin total) 0.50 mg/dL 0.2-1.00 SGOT/AST (test code = SGOT/AST) 25.0 U/L 15-37 SGPT/ALT (test code = SGPT/ALT) 20.0 U/L 14-59 alkaline phosphatase total ( test code = alkaline phosphatase total) 128 U/L 46-116 H performing lab: (test code = performing lab:) [facility] [id number] 11:58:00* Test Item Value Reference Range Interpretation Comme nts sed rate (test code = sed rate) 25 mm/HR 0-30 performing lab: (test code = performing lab:) [facility] reactive [id number] 11:58:00* Test Item Value Reference Range Interpretation Comme nts C reactive protein (test cod e = C reactive protein) 0.43 mg/dL < 0.3 H performing lab: (test code = performing lab:) [facility] [id number] 11:58:00* Test Item Value Reference Range Interpretation Comme nts Ab hepatitis A IgM (test cod e = Ab hepatitis A IgM) nonreactive nonreactive Ag hepatitis B surface (test code = Ag hepatitis B surface) nonreactive nonreactive Ab hepatitis B core IgM (manuel t code = Ab hepatitis B core IgM) nonreactive nonreactive Ab hepatitis C (test code = Ab hepatitis C) nonreactive nonreactive signal to cutoff (test code = signal to cutoff) 0.11 <0.80 performing lab: (test code = performing lab:) [facility]Ab HIV [id number] 11:58:00* Test Item Value Reference Range Interpretation Comme nts Ab HIV 1 (test code = Ab HIV 1) nonreactive nonreactive performing lab: (test code = performing lab:) [facility]- XR PELVIS 1/2 [id number] 10:13:00 [facility] 1955 Sex: F Patient Name: VALENTINO DALAL Unit No: [id number] EXAMS: CPT CODE: [id number] XR PELVIS 1/2VIEWS 26483 AP VIEW OF THE PELVIS. COMMENT: In progress total right hip arthroplasty. Fracture of the right proximal femur is partially demonstrated laterally. AP view of the pelvis COMMENT: Completed total right hip arthroplasty. Lateral plate and screw fixation of the right femur is noted withoutimmediate complication. at 1013 Reported and signed by: Chong Ochoa M.D. CC: Fabricio Cartagena MD Technologist: Charles Munoz(R) Transcribed D/ (1013) [facility] NAME: VALENTINO DALAL [address] [facility] [address] PHYS: MATVA.01 - Fabricio Cartagena : 1955 AGE: 66 SEX: F [place], [place] [address] LOC: Y.507 A PHONE #: [phone] EXAM DATE: 01/20/2022 STATUS: ADM IN FAX #: [phone] RAD #: D/C DT PAGE 1 Signed Report Patient Name: VALENTINO DALAL Unit No: [id number] EXAMS: CPT CODE: [id number] XR PELVIS 1/2 VIEWS 17829 (Continued) Orig Print D/T: S: 01/24/2022 (1017) [facility] NAME: VALENTINO DALAL [address] [facility] PHYS: MATVA.01 - Fabricio Cartagena : 1955 AGE: 66 SEX: F [place], [place] [address] LOC: Y.507 A PHONE #: [phone] EXAM DATE: 01/20/2022 STATUS: ADM IN FAX #: [phone] RAD #: D/C DT PAGE 2 Signed Report- XR PELVIS 1/2 [id number] 10:13:00 [facility] : 1955 Sex: F Patient Name: VALENTINO DALAL Unit No: [id number] EXAMS: CPT CODE: [id number] XR PELVIS 1/2 VIEWS 80169 AP VIEW OF THE PELVIS. COMMENT: In [...] Technologist: Charles Munoz(R) Transcribed D/ (1013) VicenteSLJ [facility] NAME: VALENTINO DALAL [address] [facility] PHYS: Martinez Hoffmanos Lana : 1955 AGE: 66 SEX: [place], [place] [address] LOC: Y.507 A PHONE #: [phone] EXAM DATE: 01/19/2022TATUS: ADM IN FAX #: [phone] RAD #: D/C DT PAGE 1 Signed Report Patient Name: VALENTINO DALAL Unit No: [id number] EXAMS: CPT CODE: [id number] XR PELVIS 1/2 VIEWS 63427 (Continued) Orig Print D/T: S: 01/24/2022 (1017) [facility] NAME: VALENTINO DALAL [address] [place] [address] PHYS: Fabricio Hoffman : 1955 AGE: 66 SEX: [place], [place] [address] LOC: Y.507 A PHONE #: [phone] EXAM DATE: 01/19/2022 STATUS: ADM IN FAX #: [phone] RAD #: D/C DT PAGE 2 Signed ReportBASIC METABOLIC [id number] 07:12:00* Test Item Value Reference Range Interpretation Comme nts SODIUM (test code = NA) 139 mmol/L 136-145 N POTASSIUM (test code = K) 5.2 mmol/L 3.5-5.1 H CHLORIDE (test code = CL) 103.0 mmol/L 98-107 N CARBON DIOXIDE (test code = CO2) 23.7 mmol/L 21-32 N GLUCOSE (test code = GLU) 127 mg/dL 70-110 H BLOOD UREA NITROGEN (test code = BUN) 20 mg/dL 7-18 H GLOMERULAR FILTRATION RATE (test code = GFR) 45.6 >60 The Glomerular Filtration Rate is a calculated parameterbased on serum Creatinine, patient age and sex. GFR valuesless than 60 mL/min/1.73 square meters are indicative ofChronic Kidney Disease. Values less than 15 mL/min/1.73square meters indicate Kidney failure. The calculation forGFR is based on the CKD-EPI (202) calculation. This formulais race indifferent and is the recommended formula for GFRby the National Kidney Foundation for Adults.The GFR will not calculate if the sex is unknown or if thepatient's age is <18 years. CREATININE (test code = CREAT) 1.30 mg/dL 0.55-1.30 N CALCIUM (test code = CA) 8.1 mg/dL 8.2-10.1 L HGB [id number] 06:43:00* Test Item Value Reference Range Interpretation Comme nts HEMOGLOBIN (test code = HGB) 9.9 g/dL 12-16 L HEMATOCRIT (test code = HCT) 29.7 % 37-47 L Hemoglobin and Hematocrit panel - [id number] 04:00:00* Test Item Value Reference Range Interpretation Comme nts hemoglobin (test code = hemoglobin) 9.9 g/dL 12-16 L hematocrit (test code = hematocrit) 29.7 % 37-47 L performing lab: (test code = performing lab:) [facility] metabolic [id number] 04:00:00* Test Item Value Reference Range Interpretation [...] performing lab: (test code = performing lab:) [facility] - Blood 2022-01-20 04:00:00* Test Item Value Reference Range Interpretation Comme nts hemoglobin (test code = hemoglobin) 9.9 g/dL 12-16 L hematocrit (test code = hematocrit) 29.7 % 37-47 L performing lab: (test code = performing lab:) [facility] metabolic [id number] 04:00:00* Test Item Value Reference Range Interpretation [...] performing lab: (test code = performing lab:) [facility]emat[facility] - Blood 2022-01-20 04:00:00* Test Item Value Reference Range Interpretation Comme nts hemoglobin (test code = hemoglobin) 9.9 g/dL 12-16 L hematocrit (test code = hematocrit) 29.7 % 37-47 L performing lab: (test code = performing lab:) [facility] [id number] 04:00:00* Test Item Value Reference Range Interpretation [...] performing lab: (test code = performing lab:) [facility]- XR FLUORO [id number] 11:29:00 [facility] : 1955 Sex: F Patient Name: VALENTINO DALAL Unit No: [id number] EXAMS: CPT CODE: [id number] XR FLUORO NDL 07831 Fluoroscopically guided right hip aspiration FINDINGS: After informed consent was obtained a 22-gauge needle is inserted into the right hip under fluoroscopic guidance using sterile technique. 1.5 cc of redfluid was aspirated. This is sent to the lab for analysis. The patient tolerated the procedure well. 4 seconds of fluoroscopy time was used on this exam. IMPRESSION: Fluoroscopically guided right hipaspiration. at 1129 Reported and signed by: Chong Ochoa M.D. CC: Fabricio Cartagena MD Technologist: Kallie BECKWITH-[employer] Transcribed D/ 1127) tMARIA ESTHERSLJ [facility] NAME: VALENTINO DALAL[address] [facility] PHYS: JACKLYN.01 - Fabricio Cartagena : 1955 AGE: 66 SEX: F [place] [address] LOC: RanjithRAD PHONE #: [phone] EXAM DATE: 12/02/2021 STATUS: DEP CLI FAX #: [phone] RAD #: D/C DT PAGE 1 Signed Report Patient Name: VALENTINO DALAL Unit No: [id number] EXAMS: CPT CODE: [id number] XR FLUORO NDL 61337 (Continued) Orig Print D/T: S: 12/07/2021 (1132) [facility] NAME: VALENTINO DALAL [address] [facility] PHYS: MATVA.01 - Cartagena,MaryiliosM : 1955 AGE: 66 SEX: F [place], [place] [address] LOC: RanjithRAD PHONE #: [phone] EXAM DATE: 12/02/2021 STATUS: SELVIN CLI FAX #: [phone] RAD #: D/C DT PAGE 2 Signed Report- XR FLUORO [id number] 11:29:00 [facility] 1955 Sex: F Patient Name: VALENTINO DALAL Unit No: [id number] EXAMS: CPT CODE: [id number] XR FLUORO NDL 78337 Fluoroscopically guided right hip aspiration FINDINGS: After informed consent was obtained a 22-gauge needle is inserted into the right hip under fluoroscopic guidance using sterile technique. 1.5 cc of redfluid was aspirated. This is sent to the lab for analysis. The patient tolerated the procedure well. 4 seconds of fluoroscopy time was used on this exam. IMPRESSION: Fluoroscopically guided right hipaspiration. at 1129 Reported and signed by: Chong Ochoa M.D. CC: Fabricio Cartagena MD Technologist: Kallie Leonardo [id number]-[id number]-VNWC Transcribed D/ (1129) VicenteSLJ [facility] NAME: VALENTINO DALAL[address] [facility] PHYS: JACKLYN.Yvrose - OsielFabricio M : 1955 AGE: 66 SEX: F [place] [address] LOC: Y.RAD PHONE #: [phone] EXAM DATE: 12/02/2021 STATUS: DEP CLI FAX #: [phone] RAD #: D/C DT PAGE 1 Signed Report Patient Name: VALENTINO DALAL Unit No: [id number] EXAMS: CPT CODE: [id number] XR FLUORO NDL [id number] (Continued) Orig Print D/T: S: 12/07/2021 (1132) [facility] NAME: VALENTINO DALAL [address] [place] [address] PHYS: JACKLYN.Yvrose - OsielMaryDante : 1955 AGE: 66 SEX: F [place], [place] [address] LOC: Y.RAD PHONE #: [phone] EXAM DATE: 12/02/2021 STATUS: DEP CLI FAX #: [phone] RAD #: D/C DT PAGE [address]/[id number] 16:31:00* Test Item Value Reference Range Interpretation Comme nts SYNOVIAL FLD COLOR (test code = COLSY) BLOODY LT. YELLOW A SYNOVIAL FLD APPEARANCE (test code = APPSY) SLIGHT HAZY CLEAR SYNOVIAL FLD VOLUME (test code = VOLSY) 1 mL SYNOVIAL FLD WBC (test code = WBCSY) 1170.000 /MM3 0-200 H SYNOVIAL FLD RBC (test code = RBCSY) 812527.000 /mm3 0-2 H NOTE: An automated method [...] PLASY) 54 % 0-0 H SPECIMEN COMMENT: ASPIRATIONCBC W/MANUAL [id number] 13:15:00* Test Item Value Reference Range Interpretation Comme nts WHITE BLOOD CELL (test code = WBC) 7.6 K/mm3 5.8-11.0 N RED BLOOD CELL (test code = RBC) 4.39 M/mm3 4.2-5.4 N HEMOGLOBIN (test code = HGB) 13.2 g/dL 12-16 N HEMATOCRIT (test code = HCT) 39.9 % 37-47 N MEAN CELL VOLUME (test code = MCV) 91 fL 80-98 N MEAN CELL HGB (test code = MCH) 30.1 pg 27-34 N MEAN CELL HGB CONCENTRATION (test code = MCHC) 33.1 g/dL 30.8-34.1 N RED CELL DISTRIBUTION WIDTH (test code = RDW) 13.4 % 11-16 N PLT (test code = PLT) 209 K/mm3 130-400 N MEAN PLATELET VOLUME (test code = MPV) 11.1 fL 8.9-12.1 N STAIN ACCEPTABILITY (test code = STN ACCEPTABLE) STAIN ACCEPTABLE CELLS COUNTED (test code = TCC) 100 See_Comment [Automated message] The system which generated this result transmitted reference range: 100. The reference range was not used to interpret this result as normal/abnormal. SEGMENTED NEUTROPHILS (test code = SEG) 57 % 50-65 N LYMPHOCYTE (test code = LYMPH) 26 % 20-40 N NUCLEATED RED BLOOD CELL (test code = NRBC) 0 % 0-0 N MONOCYTE (test code = MON) 7 % 2-9 N EOSINOPHIL (test code = EOS) 10 % 1-3 H SED [id number] 13:15:00* Test Item Value Reference Range Interpretation Comme nts SED RATE (test code = SEDW) 30 mm/hr 0-20 H COMPREHENSIVE METABOLIC [id number] 12:49:00* Test Item Value Reference Range Interpretation Comme nts SODIUM (test code = NA) 138 mmol/L 136-145 N POTASSIUM (test code = K) 4.7 mmol/L 3.5-5.1 N CHLORIDE (test code = CL) 102.0 mmol/L 98-107 N CARBON DIOXIDE (test code = CO2) 29.4 mmol/L 21-32 N GLUCOSE (test code = GLU) 90 mg/dL 70-110 N BLOOD UREA NITROGEN (test code = BUN) 18 mg/dL 7-18 N GLOMERULAR FILTRATION RATE (test code = GFR) 46.0 >60 Unit of m easure: mL/min/1.73 x1Eyrtaxfoe Range:Healthy Adults >90 mL/min/1.73 m2 For Chronic Kidney Disease: Stage II Mild Decrease in GFR 60-90 Stage III Moderate Decrease in GFR 30-59 Stage IV Severe Decrease in GFR 15-29 Stage V Kidney Failure <15 CREATININE (test code = CREAT) 1.18 mg/dL 0.55-1.30 N TOTAL PROTEIN (test code = PROT) 7.0 g/dL 6.4-8.2 N ALBUMIN (test code = ALB) 3.2 g/dL 3.4-5.0 L GLOBULIN (test code = GLOB) 3.8 g/dL 2.2-4.2 N ALBUMIN/GLOBULIN RATIO (test code = A/G) 0.8 0.7-2.0 N CALCIUM (test code = CA) 8.7 mg/dL 8.2-10.1 N BILIRUBIN TOTAL (test code = BILT) 0.50 mg/dL 0.2-1.00 N SGOT/AST (test code = AST) 29.0 U/L 15-37 N SGPT/ALT (test code = ALT) 38.0 U/L 12-78 N Please note new normal range. ALKALINE PHOSPHATASE TOTAL (test code = ALKP) 123 U/L 46-116 H PROTHROMBIN [id number] 12:49:00* Test Item Value Reference Range Interpretation Comme nts PROTHROMBIN TIME PATIENT (test code = PTP) 10.8 secs 9.7-12.5 N Please note new normal range. INTERNATIONAL NORMAL RATIO (test code = INR) 0.97 <2.0 RECOMMENDED THER APEUTIC RANGE FOR ORAL ANTICOAGULANTTREATMENT: CONDITION INRProphylaxis of venous thrombosis in 2.0 - 3.0 high-risk medical or surgical patientsTreatment of venous thrombosis 2.0 - 3.0Prevention of embolism 2.0 - 3.0Prevention of recurrent embolism, or 3.0 - 4.5 patients with mechanical prosthetic intravascular valves IS PATIENT ON ANTICOAGULANTS ? NHas Lab been notified if Patient is on Heparin Drip? NOIf Yes, order CBC, OCCULT BLOOD, PT every other day NTHROMBOPLASTIN TIME [id number] 12:49:00* Test Item Value Reference Range Interpretation Comme nts PTT ACTIVATED (test code = APTT) 31.4 secs 26.6-34.6 N Please note new normal range. IS PATIENT ON ANTICOAGULANTS ? NHas Lab been notified if Patient is on Heparin Drip? NOIf Yes, order CBC, OCCULT BLOOD, PT every other day NC REACTIVE PROTEIN 2021-11-21 12:49:00* Test Item Value Reference Range Interpretation Comme nts C REACTIVE PROTEIN (test cod e = CRP) 1.7 mg/dL <0.9 CBC W/AUTO [id number] 12:39:00* Test Item Value Reference Range Interpretation Comme nts WHITE BLOOD CELL (test code = WBC) 7.6 K/mm3 5.8-11.0 N RED BLOOD CELL (test code = RBC) 4.39 M/mm3 4.2-5.4 N HEMOGLOBIN (test code = HGB) 13.2 g/dL 12-16 N HEMATOCRIT (test code = HCT) 39.9 % 37-47 N MEAN CELL VOLUME (test code = MCV) 91 fL 80-98 N MEAN CELL HGB (test code = MCH) 30.1 pg 27-34 N MEAN CELL HGB CONCENTRATION (test code = MCHC) 33.1 g/dL 30.8-34.1 N RED CELL DISTRIBUTION WIDTH (test code = RDW) 13.4 % 11-16 N PLT (test code = PLT) 209 K/mm3 130-400 N MEAN PLATELET VOLUME (test code = MPV) 11.1 fL 8.9-12.1 N NEUTROPHIL % (test code = NT%) 53.7 % 45-70 N LYMPHOCYTE % (test code = LY%) 22.0 % 20-40 N MONOCYTE % (test code = MO%) 10.8 % 3-10 H EOSINOPHIL % (test code = EO%) 12.3 % 1-5 H BASOPHIL % (test code = BA%) 0.8 % 0.0-1.1 N NEUTROPHIL # (test code = NT#) 4.06 K/mm3 2.00-7.50 N LYMPHOCYTE # (test code = LY#) 1.66 K/mm3 1.50-4.00 N MONOCYTE # (test code = MO#) 0.82 K/mm3 0.2-0.8 H EOSINOPHIL # (test code = EO#) 0.93 K/mm3 0.04-0.4 H BASOPHIL # (test code = BA#) 0.06 K/mm3 0.02-0.10 N MANUAL DIFF REQUIRED (test code = MDIFF) YES MANUAL DIFF MANUAL DIFF REQUIRED. NUCLEATED RED BLOOD CELL (test code = NRBC) 0 % 0-0 N POCT URINALYSIS W SPECIFIC [id number] 16:01:00* Test Item Value Reference Range Interpretation [...] internal controls Lab Interpretation (test code = 80820-3) Abnormal [facility] Notes Date/Time Note Provider Source 2023-04-20 10:44:00 [id number] cS26/BtRp6WJuDU yKUQ8LVc/oPv5ZGV+Gj2NCmnNLtRsKpnwd1 7P1FlJ1670-36-95K56:44:00 [facility] ([facility])Orthopaedic Progress NoteREPORT#:[id number] REPORT STATUS: SignedREPORT INITIALIZATION DATE:04/20/23 TIME: 104 PATIENT: VALENTINO DALAL UNIT #: [id number]#: [id number] ROOM[facility]BED: [facility]-ADOB: [birth year] AGE: 67 SEX: F ATTEND: Vineet Weeks [facility] AUTHOR: Hafsa Mathew PAREPT SERVICE DT/TIME: 04/20/23 1044* ALL edits or amendments must be made on the electronic/computer document * SubjectivePatient reports:Yes: pain, pain controlled. No: ambulating with therapy. ObjectiveVS:Last Documented: Result Date Time Pulse Ox 100 04/20 829 O2 Delivery Nasal cannula 04/20 829 O2 Flow Rate 2 04/20 829 B/P 147/73 04/20 752 B/P Mean 97.5 04/20 752 Temp 36.6 04/20 752 Pulse 85 04/20 752 Resp 14 04/20 752 FiO2 28 04/20 0215 PATIENT WEIGHT: Weight (lb): 164Weight (oz): 10.96Weight (kg): 74.700 Medications:Active Meds + DC'd Last 24 HrsMagnesium Hydroxide (MILK OF MAGNESIA) 30 ML BEDTIME PRN PRN PO Methocarbamol (ROBAXIN) 500 MG ANES Q6H PRN PRN PO Enoxaparin Sodium (LOVENOX) 40 MG DAILY 0600 SUBQ Tizanidine HCl (ZANAFLEX) 2 MG Q8HR PO (DC) Cefazolin Sodium (KEFZOL) 2 GM Q8H IV (DC) Cefazolin Sodium (KEFZOL) 2 GM Q8H IV (DC) Sodium Chloride (SODIUM CHLORIDE) 20 ML Q8H IV (DC) Lactated Ringer's (LACTATED RINGERS) 1,000 ML .Q20H IV Pharmacy Profile Note (CLARIFICATION NEEDED) SCAN HOME MED LIST Nurse Do not delete this Rx. Pharmacy will delete. To remove the admin time, use FD (full document) Given = No Q2HR MISC (DC) Methocarbamol (ROBAXIN) 500 MG ANES Q6HR PO (DC) Cefazolin Sodium (KEFZOL) 2 GM .STK-MED ONE IV (DC) Fentanyl Citrate (SUBLIMAZE) 100 MCG .STK-MED ONE IV (DC) Hydromorphone HCl (DILAUDID) 2 MG .STK-MED ONE IV (DC) Lactated Ringer's (LACTATED RINGERS) 2,000 ML .STK-MED ONE IV (DC) Lidocaine HCl (XYLOCAINE PF) 5 ML .STK-MED ONE IV (DC) Midazolam HCl (VERSED) 5 MG .STK-MED ONE IV (DC) Norepinephrine Bitartrate (Norepinephrine 100 mcg/NS 10 mL SYR) 100 MCG .STK-MED ONE IV (DC) Ondansetron HCl (ZOFRAN) 4 MG .STK-MED ONE IV (DC) Propofol (DIPRIVAN) 400 MG .STK-MED ONE IV (DC) Rocuronium Monroe (Rocuronium Monroe 10 mg/mL) 100 MG .STK-MED ONE IV (DC) Sugammadex Sodium (Bridion) 200 MG .STK-MED ONE IV (DC) Tranexamic Acid (CYKLOKAPRON) 2,000 MG .STK-MED ONE IV (DC) Loratadine (CLARITIN) 10 MG DAILY PRN PRN PO Acetaminophen (TYLENOL) 650 MG Q4H PRN PRN PO Diphenhydramine HCl (BENADRYL) 12.5 MG ANES Q4H PRN PRN IV Diphenhydramine HCl (BENADRYL) 25 MG ANES BEDTIME PRN PRN PO Hydrocodone Bitart/Acetaminophen (NORCO 5/325 TABLET) 1 UDTAB ANES Q4H PRN PRN PO Hydrocodone Bitart/Acetaminophen (NORCO 10/325 TABLET) 1 UDTAB ANES Q4H PRN PRN PO Hydromorphone HCl (HYDROmorphone 10 mg/NS 50 mL TALENT ANALYST) 50 ML ASDIR IV (CKD) IV Miscellaneous Supplies (TALENT ANALYST SANTIZO) 1 EA ASDIR MISC Naloxone HCl (NARCAN) 0.1 - 0.2 MG ANES ASDIR IV Ondansetron HCl (ZOFRAN) 4 MG ANES Q4H PRN PRN IV Oxymetazoline HCl (AFRIN NASAL SPRAY) 1 SPRAY DAILY PRN PRN NASAL (DC) Promethazine HCl (PHENERGAN) 6.25 MG ANES ASDIR PRN IM Tizanidine HCl (ZANAFLEX) 4 MG PACU STAT PO (DC) Diphenhydramine HCl (BENADRYL) 12.5 MG PACU STAT IV (DC) Haloperidol Lactate (HALDOL) 1 MG PACU STAT IV (DC) Lorazepam (ATIVAN 2 MG/ML VIAL) 0.5 MG PACU STAT IV (DC) Fentanyl Citrate (SUBLIMAZE) 25 MCG PACU Q5MIN PRN PRN IV (DC) Hydralazine HCl (hydrALAZINE HCL) 10 MG PACU Q10MIN PRN PRN IV (DC) Hydrocodone Bitart/Acetaminophen (NORCO 5/325 TABLET) 1 UDTAB PACU Q4H PRN PRN PO (DC) Hydrocodone Bitart/Acetaminophen (NORCO 10/325 TABLET) 1 UDTAB PACU Q4H PRN PRN PO (DC) Hydromorphone HCl (DILAUDID) 0.2 MG PACU Q5MIN PRN PRN IV (DC) Meperidine HCl (MEPERIDINE HCL) 12.5 MG PACU Q5MIN PRN PRN IV (DC) Metoprolol Tartrate (LOPRESSOR) 2 MG PACU Q10MIN PRN PRN IV (DC) Ondansetron HCl (ZOFRAN) 4 MG PACU ONCE PRN PRN IV (DC) Clindamycin Phosphate (CLEOCIN 900 MG/D5W 50 ML) 50 ML ONCALL IV (DC) Lactated Ringer's (LACTATED RINGERS) 1,000 ML PREOP IV FLUID IV (DC) Lidocaine HCl (XYLOCAINE) 2 ML PREOP SUBQ (DC) Physical ExamGeneral appearance: alert, oriented, no acute distressExtremities: Right femur with dressing C/D/I. NVI. Diagnosis, Assessment PlanFree text A P:POD#1 s/p right proximal femur HWR - DVT prophylaxis- PT - WBAT to RLE- Pain control- D/c home today- Take 81 mg ASA daily once home for DVT prophylaxis- Pain medication sent to pharmacy at 1050 RPT #:[id number] OF REPORT PRProgress nzsd4965-48-94H77:44:00Y.ZGLB111068 0065AVAvailable for patient zafgPKRXEMEONUIEFH2478-59-29Y84:06: 29 [facility] 2023-04-20 10:41:00 [id number]/u Z3yHn9Q9qv3J+mi 1AfoB/8ZuUSpIIOyF5dcK8IAxcKfjc8lSeD 5NAs2a1508-72-92K87:41:00 [facility]Discharge SummaryREPORT#:[id number] REPORT STATUS: SignedREPORT INITIALIZATION DATE:04/20/23 TIME: 104 PATIENT: VALENTINO DALAL UNIT #: [id number]#: [id number] ROOM[facility]BED: [facility]-ADOB: [birth year] AGE: 67 SEX: F ATTEND: Vineet Weeks [facility] AUTHOR: Hafsa Mathew PAREPT SERVICE DT/TIME: 04/20/23 1041* ALL edits or amendments must be made on the electronic/computer document * General InformationDischarge date: 04/19/23Discharge diagnosis:Right femur painful hardwareHospital course:On 04.18.23 the patient underwent right proximal femur hardware removal due to pain.Consultants: internal medicine, pain managementPt. condition on discharge: stableAllergies:Allergies:Penicilli ns (Coded, Severe, convulsions, 04/19/23)Iodinated Contrast Media (IODINATED CONTRAST MEDIA - IV DYE) (Coded, Mild, "INSIDES ON FIRE", HYPERVENTILATES, 04/19/23)vancomycin (Coded, Mild, HIVES, SKIN PEELED OFF, EXTREME RED SKIN, 04/19/23) Med Rec Med RecDischarge meds:Stop taking the following medications:traMADol (ULTRAM) 50 MG TAB 50 MILLIGRAM ORAL EVERY FOUR HOURS. Continue taking these medications:CALCIUM CARBONATE (TUMS) 200 MG CALCIUM (500 MG) TAB.CHEW 500 MILLIGRAM ORAL PRN as needed for indigestion methocarbamoL (ROBAXIN) 500 MG TAB 500 MILLIGRAM ORAL FOUR TIMES A DAY. Qty = 60 MELOXICAM (MOBIC) 15 MG TAB 15 MILLIGRAM ORAL DAILY. Qty = 30 [SINEX] 1 SPRAY NASAL PRN as needed for ALLERGIES Discharge Instructions PCP)( Discharge to: Home/Self Care Discharge InstructionsAdditional Discharge Routines: Wound/Dressing Care, Add. instructions)( Diet: Regular)( Activity: Weight Bearing As Liliana.)( Wound/dressing care: Keep wound clean and dry, Leave dressing in place)( Additional instructions:Take 81 mg ASA daily once home for DVT prophylaxis. at 1043 RPT #:[id number] OF REPORT DSDischarge tswdrua0406-98-65L69:41:00Y.FJHD314 [address]-35[address]UTUbohmwjyd for patient rlppKDRSPTRBUXXTHG5769-29-57T56:51: 08 [facility] 2023-04-20 07:10:00 [id number] IwWzsiVRh3r1LUD B/nasrin/GUrNmY4dAXTfatOfT59ftC8g3pHe l72vbv8654-55-02X03:10:00 [facility] ([facility])Clinical NoteREPORT#:[id number] REPORT STATUS: SignedREPORT INITIALIZATION DATE:04/20/23 TIME: 709 PATIENT: VALENTINO DALAL UNIT #: [id number]#: [id number] [facility] AGE: 67 SEX: F ATTEND: Vineet Weeks MDADM AUTHOR: Jim Enriquez MDREPT SERVICE DT/TIME: 04/20/23 0710* ALL edits or amendments must be made on the electronic/computer document * Clinical NoteNote:[facility] Jim Evans M.D. (cell text [phone]) Assessment/Plan1.) Anemia of acute blood loss- .Hgb 10.3, asymptomatic.2.) S/p Hardware removal left proximal femur- .acute multi-modal pain control and followup. Anticoagulation as per .3.) Hypertension PSVT CKDz3A- .follow BP and hold Rxs if SBP<120.4.) Rheumatoid OsteoArthritis- .continue on Rx. Prior Events/Overnight: Uneventful.Chief Complaint: No significant complaints. ObjectiveVital Signs: Date Time Temp Pulse Resp B/P B/P Pulse O2 O2 Flow FiO2 Mean Ox Delivery Rate 04/20 023 97.7 81 16 151/76 101.1 100 04/20 0215 97 Nasal 2 28 cannula 04/19 2120 97 Nasal 2 28 cannula 04/19 1900 97.9 76 16 148/73 97.8 99 04/19 1500 99 Nasal 1 cannula 04/19 1500 99.0 69 14 139/64 88.6 99 Room air 04/19 1136 Nasal 3 cannula 04/19 1128 97.5 59 14 128/72 90.6 100 Nasal cannula 04/19 1100 97.0 71 16 125/63 100 Nasal 3 cannula 04/19 1045 71 17 122/63 100 Nasal 3 cannula 04/19 1030 Simple 8 mask 04/19 1030 72 16 138/66 98 Nasal 3 cannula 04/19 1015 89 30 151/67 100 Room air 04/19 1000 71 22 111/55 99 Simple 8 mask 04/19 0952 97.8 71 13 129/60 99 Simple 8 mask Gen: Alert, oriented, in moderate discomfort Neck: No Masses, No Thyromegaly-CV: Regular Rate Rhythm / Edema- no significant Resp: Clear To Ascultation / Normal Respiratory EffortABD: NonTender / NonDistended MS/Skin: No sign of compartment syndrome / +ankle DF/PFOther: thigh dressing clean, dry Labs/X-ray: Laboratory Tests: 04/20 0400 Chemistry Sodium (136 - 145 mmol/L) 139 Potassium (3.5 - 5.1 mmol/L) 4.9 Chloride (98 - 107 mmol/L) 103.0 Carbon Dioxide (21 - 32 mmol/L) 28.9 BUN (7 - 18 mg/dL) 14 Creatinine (0.55 - 1.02 mg/dL) 1.04 H Glomerular Filtr Rate (>60) 59.3 L Glucose (74 - 106 mg/dL) 80 Calcium (8.5 - 10.1 mg/dL) 8.1 L Hematology WBC (5.5 - 11.0 K/mm3) 8.7 RBC (4.2 - 5.4 M/mm3) 4.34 Hgb (12 - 16 g/dL) 10.3 L Hct (37 - 47 %) 33.5 L MCV (80 - 98 fL) 77 L MCH (27 - 34 pg) 23.7 L MCHC (30.8 - 34.1 g/dL) 30.7 L RDW (11 - 16 %) 15.1 Plt Count (130 - 400 K/mm3) 306 MPV (8.9 - 12.1 fL) 11.6 Neut % (Auto) (45 - 70 %) 66.5 Lymph % (Auto) (20 - 40 %) 20.3 [place] % (Auto) (3 - 10 %) 8.7 Eos % (Auto) (1 - 5 %) 3.3 Baso % (Auto) (0.0 - 1.1 %) 0.7 Neut # (Auto) (2.00 - 7.50 K/mm3) 5.81 Lymph # (Auto) (1.50 - 4.00 K/mm3) 1.77 [place] # (Auto) (0.2 - 0.8 K/mm3) 0.76 Eos # (Auto) (0.04 - 0.4 K/mm3) 0.29 Baso # (Auto) (0.02 - 0.10 K/mm3) 0.06 Add Manual Diff (MANUAL DIFF) NO Nucleated RBC % (0 - 0 %) 0 Jim Evans M.D. at 0752 RPT #:[id number] OF REPORT CLClinical nosg1750-53-57P36:10:00Y.[id number] 0024AVAvailable for patient purmFMWXOPLGFCWOKF9244-59-29F80:55: 31 [facility] 2023-04-19 16:19:00 [id number] WYv/pOutJjpUueW 9254ddZwfE+QYm6EDnfB8YQ3bm2XGYskVvv WCExEX2010-76-19S81:19:00 [facility] ([facility])Clinical NoteREPORT#:[id number] REPORT STATUS: SignedREPORT INITIALIZATION DATE:04/19/23 TIME: 1619 PATIENT: VALENTINO DALAL UNIT #: [id number]#: [id number] [facility] [birth year] AGE: 67 SEX: F ATTEND: Vineet Weeks MDADM AUTHOR: Jim Enriquez MDREPT SERVICE DT/TIME: 04/19/231618* ALL edits or amendments must be made on the electronic/computer document * Clinical NoteNote:[facility] Jim Evans MD(cell text [phone])Internal Medicine Consult at request of : Dr. Vineet Weeks Chief Complaint: .right hip retained hardware HPI: 67 yo F is now s/p Hardware removal left proximal femur by Dr. Weeks. Ms. Dalal underwent a right femur open reduction internal fixation for an intraoperative fracture during her right total hip arthroplasty. She relates to months of right hip pain and her fracture is healed. Comorbidities: see below. PmHx: .OsteoArthritis, hypertension, CKD, chest pain, Paroxysmal supraventricular tachycardia(PSVT)- ablation in 1996, rheumatoid arthritis, atypical chest pain ALLERGY: Allergies:Penicillins (Coded, Severe, convulsions, 04/19/23)Iodinated Contrast Media (IODINATED CONTRAST MEDIA - IV DYE) (Coded, Mild, "INSIDES ON FIRE", HYPERVENTILATES, 04/19/23)vancomycin (Coded, Mild, HIVES, SKIN PEELED OFF, EXTREME RED SKIN, 04/19/23) Home Medications: Home Medications:traMADol (ULTRAM) 50 MG PO Q4H CALCIUM CARBONATE (TUMS) 500 MG PO PRN PRN indigestion [SINEX] 1 SPRAY NASAL PRN PRN ALLERGIES methocarbamoL (ROBAXIN) 500 MG PO QID MELOXICAM (MOBIC) 15 MG PO DAILY SgHx: .Left total hip arthroplasty, revision arthroplasty, femur surgery SHx: Tob: former smoker, quit 2010 FHx: .No significant hx of DVT/PE.Alcohol: none Drugs: none Lives: with spouse ..Vitals:Vital Signs: Date Time Temp Pulse Resp B/P B/P Pulse O2 O2 Flow FiO2 Mean Ox Delivery Rate 04/19 1500 99.0 69 14 139/64 88.6 99 Room air 04/19 1136 Nasal 3 cannula 04/19 1128 97.5 59 14 128/72 90.6 100 Nasal cannula 04/19 1100 97.0 71 16 125/63 100 Nasal 3 cannula 04/19 1045 71 17 122/63 100 Nasal 3 cannula 04/19 1030 Simple 8 mask 04/19 1030 72 16 138/66 98 Nasal 3 cannula 04/19 1015 89 30 151/67 100 Room air 04/19 1000 71 22 111/55 99 Simple 8 mask 04/19 0952 97.8 71 13 129/60 99 Simple 8 mask 04/19 0620 98.3 95 15 164/77 100 Gen: Alert, in mild discomfort.EYE: Nl lids conjunctiva.ENT: Nl ears Nose, nl lips,. Neck: Supple, nl thyroid, No masses.CV: Regular Rate Rhythm, no heave or significant murmur. Edema- none RESP: Clear to Auscultation, normal Respiratory effort.ABD: Soft, NonDistended,.LYM: No significant cervical lymphadenopathy.MS: No sign of compartment syndrome, bulky dressing on legNEURO: Nonfocal, grossly normal sensation of LE, +Ankle DF/PF..Preop Labs(04/04/23): CBC:. Hgb 10.9, Plt 282, CHEM: Na 136, K4.5 , Cr 1.11 (eGFR 54.8 %), . Ekg: Normal sinus rhythm.(medium to high risk of complications or morbidity) (major surgery) (IV sedative, meds).Assessment Plan1.) Anemia of Acute Blood Loss- .will recheck tomorrow. 2.) S/p Hardware removal left proximal femur- .acute multi-modal pain control and followup. Anticoagulation as per .3.) Hypertension PSVT CKDz3A- .follow BP and hold Rxs if SBP<120.4.) Rheumatoid OsteoArthritis- .continue on Rx.. Jim Evans M.D. Thanks!..... G8417 BMI documented as above normal parameters and a f/u plan is nqoikxkcrxJ2628 - Patient screened for tobacco use AND identified as a tobacco non-suxb1101L - ACP disscussion - default code status while at [facility]. at 1725 RPT #:[id number] OF REPORT CLClinical yaek5713-38-73E46:19:00Y.KBVP915343 -6AVAvailable for patient kktpQJSBFXYNBKWGII4984-31-41D97:43: 37 [facility] 2023-04-19 10:21:00 [id number] tiPXadr2lJvFRQv N/Q1WJUzKZ0jZx98U0WGCNoK6ANCom6a9cm U3BLFw7249-37-39P34:21:00 [facility] ([facility])Op/Inv Procedure Note - BriefREPORT#:[id number] REPORT STATUS: SignedREPORT INITIALIZATION DATE:04/19/23 TIME: 1021 PATIENT: VALENTINO DALAL UNIT #: [id number]#: [id number] ROOM/BED: [place] [address]DOB: [birth year] AGE: 67 SEX: F ATTEND: Vineet Weeks [facility] AUTHOR: Hafsa Mathew PAREPT SERVICE DT/TIME: 04/19/23 1021* ALL edits or amendments must be made on the electronic/computer document * Op/Inv Proc Note - Brief TEXT Brief Op/Inv Procedure NoteNote details:*PRE-PROCEDURE DIAGNOSIS:1. Left hip painful hardware *POST-PROCEDURE DIAGNOSIS:Same *PROCEDURE(S) PERFORMED:Hardware removal left proximal femur *PRIMARY SURGEON:Vineet Weeks *CLERICAL GRADER(S):Hafsa Mathew PA-C ANESTHETIC:General *ESTIMATED BLOOD LOSS in ml's:10 cc *SPECIMEN(S) REMOVED:None *COMPLICATIONS:None DRAIN(S):None[] TUBE(S):None[] IMPLANT(S):None[] FLUIDS:[] URINE OUTPUT:[] *FINDINGS:Synthes plate and screws removed atraumatically. DISPOSITION:To PACU at 1025 RPT #:[id number] OF REPORT PNProcedure nsrl3089-80-14K60:21:00Y.[id number] -VAvailable for patient fufnHIBHYIHGMPMJHU3426-31-99Y55:08: 45 HCATO 2023-04-06 08:05:08 OzFTTHCtavLO8oVxKCiJ rKs/R6ylmWK0sxk jRnQpnIVMrYmr9MoRPpYXS4i18tzh4211-1 1-26T08:05:[address] Nguyen, "ok to clear. Needs follow up post op."Patient is going to be having hip surgery. Faxed GILLIAN note to [facility].12/2021"Preop cardiac evaluation-negative dobutamine stress echo. Normal ejection fraction. Low to intermediate cardiac risk for surgery"Patient notified that Dr. Nguyen recommends to follow up after surgery. She states she will call back to schedule after her surgery. 29991-3Tuqwkvaei encounter KzgjXJ0755-31-91X59:08:21Telephone encounter NoteTXT1.2.840.677959.1.13.104.2.7. 2.541756|[id number] for patient xpdq31190-1WojxGGCBUHOKPGFEsxikrqhp C-CDA narrative [id number] Sheavly RN[address] Iy[id number] 2EXOHKGEVUDNAFVDVDRKXYD2333-99-15Q6 8:08:211.2.840.728431.1.72.3.15|1.2 .840.304266.1.13.104.2.7.2.727879_2 [id number] Pinky Benavides RN [facility] 2023-04-05 16:23:28 iEv20BI+5GVlvCOGMyQZ IQbIIRANy7YcMmc LILnMUYUGrxIc9JXQ1xHbrFlJ/lyH8666-3 04-05T16:23:28 Last seen . Routed to Dr. Nguyen for chart review. 22132-3Kxyqrdgod encounter WeveGK8878-33-57Y33:23:46Telephone encounter NoteTXT1.2.840.898390.1.13.104.2.7. 2.760544|[id number] for patient avnr12137-8RhciPVSBNOVNOHTRefhtmtun C-CDA narrative text[address] Wz[id number] 8MAFALYWFQHLVWXWHANCKOC3661-34-92C8 6:23:461.2.840.220457.1.72.3.15|1.2 .840.602320.1.13.104.2.7.2.727879_2 [id number] [facility] 2023-04-04 11:27:00 [id number] KqFWVgwUJwHs+h5 AYdlJFn/6Drti8d4ZOooXt8eArtDvzZfiaN 7aGhKI5570-09-75L12:27:072274-6221 [place] [id number] PATIENT NAME: VALENTINO DALAL ADMIT DATE: ACCOUNT NO: [id number] ROOM NO: AGE: 67 REPORT TYPE: ELECTROCARDIOGRAM SEX: F ADMITTING PHYSICIAN: ATTENDING PHYSICIAN:Vineet Weeks MD Order:[id number] Reason : PREOP CLEARNACE H/O HTN Test Date/Time Stamp:SunApr 04 2023 11:27:51Blood Pressure : / mmHGVent. Rate : 068 BPM Atrial Rate : 068 BPM P-R Int : 154 ms QRS Dur : 104 ms QT Int : 416 ms P-R-T Axes : 058 012 064 degrees QTc Int : 442 ms Normal sinus rhythmNormal ECG Confirmed by DOM FORBES MD ([id number]) on 04/08/2023 1:48:33 PM Referred By: Vineet Weeks Confirmed by:DOM FORBES MD PATIENT NAME: VALENTINO DALAL . [id number] for patient eqngXENUMFVXJRPSLG5379-57-25C92:48: 59 [facility] 2022-01-26 17:22:00 [id number] SlyK0oX7t+lZB8/ kfYt6KkdemBVj8HsQNCydfkQQvYrHXwmyIG va2nUk8683-25-69E66:22:750944-3693 [facility] [place] [address] PATIENT NAME: VALENTINO DALAL ADMIT DATE: 01/19/22ACCOUNT NO: [id number] ROOM NO: Y.507 AGE: 66 REPORT TYPE: OPERATIVE REPORT SEX: F ADMITTING PHYSICIAN:Fabricio Cartagena MD ATTENDING PHYSICIAN:Fabricio Cartagena MD OPERATION DATE: 01/19/2022 SURGEON: Vineet Weeks MD CLERICAL GRADER: Fabricio Cartagena MD PREOPERATIVE DIAGNOSIS: Periprosthetic fracture around internal prosthetic right hip joint, intraoperative fracture (ICD-10, #M97.01XA). POSTOPERATIVE DIAGNOSIS: Periprosthetic fracture around internal prosthetic right hip joint, intraoperative fracture (ICD-10, #M97.01XA). PROCEDURE:1. Open reduction internal fixation of periprosthetic right femoral shaft fracture.2. Open reduction and internal fixation of right periprosthetic greater trochanteric fracture. ANESTHESIA: Per anesthesia team and general endotracheal. COMPLICATIONS: None. TOURNIQUET TIME: None used. DESCRIPTION OF PROCEDURE: During the course of a complex revision total hip arthroplasty, Dr. Cartagena noted a fracture of the greater trochanter and the right femoral shaft. He called myself, Dr. Vineet Weeks of the trauma service with an intraoperative consult to fixate this complex right periprosthetic femurfracture involving the right femoral shaft and greater trochanter. After Dr. Cartagena had placed the femoral stem, the case was turned over to Dr. Weeks forstabilization of the greater trochanteric fracture as well as the complex comminuted shaft fracture. The exposure was extended. Dr. Weeks performed the longitudinal incision over the distal femur. Dissection was carried down through skin and subcutaneous tissue. Hemostasis was achieved using electrocautery. Dissection was carried down through the layers of tissue to the lateral aspect of the femur. Next, a Synthes periprosthetic plate with a greater trochanteric hook was fashioned to the lateral aspect of the femur. Reduction was performed with bonereduction forceps and the greater trochanteric fracture as well as the femoral shaft fracture were reduced and stabilized using multiple locking screws. PATIENT NAME: VALENTINO DALAL Excellent stability was achieved. This was a complex fracture and required multiple manipulations. It also required the skilled assistance of Dr. Cartagena as this case required four skilled hands and two skilled hands would not have been able to complete such a procedure. After stabilization, Dr. Cartagena continued with the hip replacement arthroplastyand completed this revision and then performed wound closure. Following this, bulky sterile dressings were applied. Anesthesia was reversed, the patient was taken to the recovery room, where it was noted that the toes had good capillary refill. The skilled assistance of Dr. Fabricio Cartagena during the fracture fixation portion was necessary because it was complex and required sophisticated instrumentation. Dr. Cartagena assisted with every aspect of the operation including but not limited to proper and safe positioning of the patient, obtaining adequate surgical exposure, manipulation of surgical instruments and the delicate task ofproviding suction to the surgical wound. In addition, Dr. Cartagena assisted with reduction and fixation of this intraoperative periprosthetic fracture. He also performed wound closure. Dr. Cartagena' assistance allowed me to perform the most sensitive and technical portions of this operation using two hands thus enhancing patient safety. This would not be possible without the help of the skilled syrup mixer assistant familiar with the procedure and capable safely performing the aforementioned tasks. Dictated By: Vineet Weeks MD Date Dictated: 01/26/2022 17:22:48Date Transcribed: 01/26/2022 20:46:00MRRhianna/Jenni #: [id number] ID: [id number] by Vineet Weeks MD On 01/30/2022 09:31:57 AM at 0931 PATIENT NAME: VALENTINO DALAL tuycin2324-83-79P45:46:00Y.ETM39355 117-0079AVAvailable for patient ajxqFQSGHPYPICCBED9845-75-56K21:32: 34 [facility] 2022-01-24 16:57:00 [id number] egayeib3vY01uwO 8tkaKWKUYj6cWPjC2b94HQg1r3MHU3rinJ5 hCiGX02510-15-21G81:57:00 [facility] ([facility])Clinical NoteREPORT#:[id number] REPORT STATUS: SignedDATE:01/24/22 TIME: 1656 PATIENT: VALENTINO DALAL UNIT #: [id number]#: [id number] ROOM/BED: [facility]-ADOB: [birth year] AGE: 66 SEX: F ATTEND: Fabricio Cartagena [facility] AUTHOR: Brant Inman MD * ALL edits or amendments must be made on the electronic/computer document * Clinical NoteNote:Progress Note Dictated [id number] at 1701 RPT #:[id number] OF REPORT CLClinical aloa4428-69-57R52:57:00Y.SDOS836901 15-0073AVAvailable for patient pclpQMJFBIFHPBQNXJ9969-50-46D14:01: 41 [facility] 15:31:00 [id number] rDfDaYqxQkqIPIn /71QkEw5rHC5cxCI4iPi/ahUfziStGHY6wd AeHFA66645-31-77P62:31:023113-0763 [facility] [address] [address] PATIENT NAME: VALENTINO DALAL ADMIT DATE: 01/19/22ACCOUNT NO: [id number] ROOM NO: [facility] AGE: 66 REPORT TYPE: PROGRESS NOTE SEX: F ADMITTING PHYSICIAN:Fabricio Cartagena MD ATTENDING PHYSICIAN:Fabricio Cartagena MD DATE: 01/24/2022 The patient is seen in her room. The patient's brother and son are present. The patient states that she is doing better today. The patient feels the pain is under better control at this time. The patient does have pain primarily in her right thigh anteriorly. Some cramping and spasm is present, but less intense. The patient states the pain overall is about a 4 on a scale of 0 to 10. No nausea. Motor exam does show good strength in both arms. Good strength in the left leg. Good strength in the right anterior tibialis muscle. Vital signs reviewed. Blood pressure is 141/83, pulse rate 101, respirations 15. Temperature is 36.9 Celsius. Oxygen saturation is 96%. Medications reviewed. The patient is on Robaxin 500 mg q. 6 hours to help reduce muscle spasm. We will dispense 40 pills with 1 refill. The patient is instructed to take it as scheduled for the first 10 days, then p.r.n. muscle spasm thereafter. The patient is also on Toradol, which will be discontinued at the time of discharge. The patient is on famotidine 40 mg q.a.m. and aspirin 81 mg b.i.d. The patient is on her baseline of amlodipine 5 mg daily for blood pressure control. PATIENT NAME: VALENTINO DALAL The patient will be discharged on tramadol 50 mg q. 6 hours for muscle spasm. Dispensed 30 pills with 1 refill. The patient is instructed to take as scheduled q. 6 hours for a week, then p.r.n. muscle spasm thereafter. The patient will also be discharged on Logan 5 mg q. 6 hours p.r.n. for pain, dispensed 32 pills. The patient is instructed to take it q. 6 hours p.r.n. for breakthrough pain symptoms. The patient to follow up with Dr. Cartagena in approximately 2 weeks. Dictated By: Brant Inman MD Date Dictated: 01/24/2022 15:31:37Date Transcribed: 01/24/2022 17:20:57SILana/ARNULFO/YOLANDA/Leanna #: [id number] ID: [id number] CC:Fabricio Cartagena MDAuthenticated by Brant Inman MD On 01/31/2022 04:51:20 PM at 0451 PATIENT NAME: VALENTINO DALAL yquw1404-41-93M56:20:00Y.[id number] 5-0067AVAvailable for patient swsePTRNTJZQKFDJCJ2009-81-28F95:51: 50 [facility] 2022-01-24 08:38:00 [id number] OnWoseKmWnndXFh tr02lLj3dHhU6sqiMcH8iaTsjqSbeQpCwnb OK6n251580-38-22U62:38:00 [facility]Discharge SummaryREPORT#:[id number] REPORT STATUS: SignedDATE:01/24/22 TIME: 0838 PATIENT: VALENTINO DALAL UNIT #: [id number]#: [id number] [facility] AGE: 66 SEX: F ATTEND: Fabricio Cartagena [facility] AUTHOR: Elida Kebede * ALL edits or amendments must be made on the electronic/computer document * General InformationDischarge date: 01/24/22Discharge diagnosis:RIGHT HIP LOOSE HARDWAREHospital course:Discharge Diagnosis: Right Hip Degenerative DiseaseProcedure: Right Hip REVISION ArthroplastyHospital Course and FindingsThe patient underwent the procedure without incident. Findings were significantfor degenerative disease of the hip. The patient was hemodynamically and medically monitored during the postoperative period. Anticoagulation was instituted for postoperative DVT prophylaxis. The patient was progressively able to tolerate PO pain medications and the appropriate diet. Physical therapywas instituted, with a progressive ability to ambulate and perform exercises. The patient was eventually deemed stable and safe for discharge. At discharge, the patient was comfortable, with a controlled pain level. Therewere no chest or abdominal symptoms present. Discharge physical examination demonstrated stable vital signs and no acute distress. The patient had an intact wound with no significant drainage, and no calf tenderness and a negativeHoman s sign bilaterally. There were no neurologic or vascular deficits or changes from the preoperative state.Disposition: Discharged to homeDischarge Condition: StableInstructions: Instruction sheet given to patientActivity: weight-bearing as instructed in the hospital. Weight bearing limitations were reviewed with the patient during the hospitalization.Diet: As per preoperativelyPrescriptions1. Pain Medications: As per discharge prescription, with progressive weaning as pain decreases2. Anticoagulation: As per discharge prescription, or PreOp anticoagulant, as discussed with patientFollow-up Appointment: Patient instructed to arrange appointment for an office visit in 2 weeks Med Rec Med RecDischarge meds:Continue taking these medications:tiZANidine (ZANAFLEX) 4 MG TAB 4 MILLIGRAM ORAL BEDTIME. amLODIPine (NORVASC) 5 MG TAB 5 MILLIGRAM ORAL DAILY AT NOON. NITROGLYCERIN (NITROSTAT) (Unknown Strength) TAB.SL Unknown Dose SUBLINGUAL EVERY 5 MINUTES NEEDED. as needed for CHEST PAIN CALCIUM CARBONATE (TUMS) 200 MG CALCIUM (500 MG) TAB.CHEW 500 MILLIGRAM ORAL PRN as needed for WITH NTG HYDROcodone/APAP (HYDROcodone/APAP 10/325) 10 MG-325 MG TAB 1 TABLET ORAL EVERY 6 HOURS. traMADol (ULTRAM) 50 MG TAB 50 MILLIGRAM ORAL EVERY FOUR HOURS. Start taking the following new medications:ASPIRIN (ASPIRIN) 81 MG TAB.CHEW 81 MILLIGRAM ORAL TWICE DAILY. Qty = 30 No Refills DOXYCYCLINE HYCLATE (VIBRAMYCIN) 100 MG CAP 100 MILLIGRAM ORAL TWICE DAILY. Qty = 14 No Refills methocarbamoL (ROBAXIN) 500 MG TAB 500 MILLIGRAM ORAL FOUR TIMES A DAY. Qty = 60 No Refills MELOXICAM (MOBIC) 15 MG TAB 15 MILLIGRAM ORAL DAILY. Qty = 30 No Refills Discharge Instructions PCPPCP:PCP: Fabricio Cartagena MD Discharge InstructionsAdditional Discharge Routines: None at 0841 at 1647 RPT #:[id number] OF REPORT DSDischarge fjtwuqv5408-46-60C16:38:00Y.XABD644 25230-1269UBQmbtthend for patient iidsIDWCHZREGFKXKM7067-18-88A28:41: 50 [facility] 2022-01-23 17:10:00 [id number] QzFlThRagRmyGFO Eyh2DipEmvrUQqivo9YCq2kiSUqTBM/3qLK Z4z2hP2892-07-77T66:10:00 [facility] ([facility])Clinical NoteREPORT#:[id number] REPORT STATUS: SignedDATE:01/23/22 TIME: 1710 PATIENT: VALENTINO DALAL UNIT #: [id number]#: [id number] ROOM/BED: [facility]-ADOB: [birth year] AGE: 66 SEX: F ATTEND: Fabricio Cartagena AUTHOR: Brant Inman MD * ALL edits or amendments must be made on the electronic/computer document * Clinical NoteNote:Consult Note Dictated [id number] at 1713 RPT #:[id number] OF REPORT CLClinical bjrk2917-30-22Y74:10:00Y.NLJI692651 14-0056AVAvailable for patient amyhSOIXYJGEKNYEXW0184-27-91A47:13: 26 [facility] 2022-01-23 13:06:00 [id number]+yfU Z4RDsK5oPcDIIm+ /4lHqI7kBSa6jaCA2bVo9P+WV0T8u0SHlTB tOttI/3649-97-50D27:06:943164-7069 [facility] [place] [address] PATIENT NAME: VALENTINO DALAL ADMIT DATE: 01/19/22ACCOUNT NO: [id number] ROOM NO: [facility] AGE: 66 REPORT TYPE: CONSULTATION REPORT SEX: F ADMITTING PHYSICIAN:Fabricio Cartagena MD ATTENDING PHYSICIAN:Fabricio Cartagena MD CONSULTATION DATE: 01/23/2022 I constantly cover this consultation out to Fabricio Cartagena M.D. The patient is a 66-year-old woman, , right hand, right footed. The patient is being seen at the request of Dr. Adorno for neurologic evaluation of pain symptoms and medication management. The patient was admitted to [facility] on January 19. The patient had sustained a fall at home earlier in May 2021. The patient was diagnosed as having a right femur fracture. The patient did undergo initial surgery on or about 05/16/2021. The patient did have a right hip hemiarthroplasty. The patient has had an increase of pain in the right hip area. The patient's pain is radiating to the right thigh. She has also had pain in the right groin. The patient has had low back pain. The patient has had cramping and spasm, low back, right hip, right groin and right thigh area. She has had some weakness in the legs. No numbness or tingling in the legs or feet. No incontinence of urine or stool. No blurred vision, diplopia or loss of vision. PAST MEDICAL HISTORY:1. Hypertension.2. Supraventricular tachycardia.3. Cardiac ablation in 1996.4. Gastroesophageal reflux disease. PAST SURGICAL HISTORY: PATIENT NAME: VALENTINO DALAL 1. Left total hip arthroplasty, . Hysterectomy, 2013. REVIEW OF SYSTEMS:EYES: No blurred vision.ENT: No dizziness.PULMONARY: No chest pain, cough or hemoptysis.CARDIOVASCULAR: The patient does have a history of hypertension. The patient did have cardiac ablation in 1996 for treatment of supraventricular tachycardia.GASTROINTESTINAL: The patient does have epigastric pain.GENITOURINARY: The patient did have a hysterectomy.MUSCULOSKELETAL: As above.NEUROLOGICAL: As above.PSYCHIATRIC: The patient states in the past month, pain has made her energy level to be less. Pain does interfere with her getting sleep and staying asleep. Pain has made her nervous, restless, depressed and forgetful. MEDICATIONS: Prior to this admission include nitroglycerin p.r.n. chest pain, tizanidine 4 mg at bedtime, amlodipine 5 mg daily at noon and also calcium carbonate ____ p.r.n. DRUG ALLERGIES: PENICILLIN AND VANCOMYCIN. SOCIAL HISTORY: The patient stopped smoking cigarettes in approximately 2010. Prior to that, the patient smoked 2.5 to 3 packs a day for 31 years. The patient does not drink alcohol. The patient does not take street drugs. The patient is . She does live in a 1-level house. The patient's son and grandchild live with her. The patient did have surgery on January 19. The patient was diagnosed as having a loose right total hip arthroplasty. The patient to undergo revision of right total hip arthroplasty and open reduction internal fixation of right femur fracture. The patient is now touchdown weightbearing in the right leg. Postoperatively, the patient was prescribed Robaxin ____ mg q. 6 hours p.r.n. muscle spasm. The patient also prescribed Toradol 50 mg IV push q. 6 hours p.r.n. pain. The patient was prescribed Tramadol 50 mg q. 6 hours p.r.n. moderate levels of pain. The patient also prescribed oxycodone 5 mg q. 4 hours p.r.n. moderate levels of pain and oxycodone 10 mg q. 6 hours p.r.n. highest levels of pain. PATIENT NAME: VALENTINO DALAL The patient did have pain increased yesterday. The patient was started on a pain pump with hydromorphone, Dilaudid, dose 0.1 mgdelay 8 minutes, 1 hour limit of 0.8 mg. PHYSICAL EXAMINATION:EYES: Pupils are equal, 3 mm in size. Extraocular movements, visual johnson intact.NEUROLOGIC: Mental status: The patient is alert. She is oriented to place andto year. The patient could subtract serial 7s x2 to 86. The patient reversed presidents x2 to Cristino Trump. Short-term memory intact to 3/3 objects. The patient states that her right hip, right leg pain is a 5 now on a scale of 0-10,yesterday was an 8 on a scale of 0-10. Cranial nerves II, III, IV, and as above. V, VII through XII intact. Motor exam, good strength in the arms and legs. Sensory exam intact to light touch. Reflexes 2 at the biceps, 2 at the wrist, zero at both knees, zero at both ankles. CLINICAL DIAGNOSES:1. History of right femur fracture in May 2021.2. Right hip hemiarthroplasty performed on or about 05/16/2021.3. Loose hardware.4. Right total hip arthroplasty revision.5. Open reduction internal fixation of right femur fracture.6. Musculoskeletal spasm, low back, right hip, right leg.7. Hypertension.8. Gastroesophageal reflux disease.9. History of supraventricular tachycardia and cardiac ablation in 1996. TREATMENT: Will continue pain pump overnight through tomorrow a.m. We will make the Robaxin schedule as opposed to p.r.n. 5 mg q. 6 hours. If pain does remain better controlled, we will wean and stop the pain pump tomorrow and place her back on pain pills. The patient agrees with same ____. Dictated By: Brant Inman MD Date Dictated: 01/23/2022 13:06:44Date Transcribed: 01/23/2022 19:03:28SIM/MEI/BRANT/Leanna #: [id number] ID: [id number] by Brant Inman MD On 01/31/2022 04:51:16 PM at 0451 PATIENT NAME: VALENTINO DALAL 4T19:03:00Y.[id number] able for patient crodZIMUUHSOCPVUPB5659-60-53S53:51: 50 [facility] 2022-01-23 07:05:00 [id number] CIrAwj5B1kPnO5K YTYIpLuIEwopTkmlID9x+Hq+BQs4tkbPtxD 7dH5vr9887-91-56H74:05:00 [facility] ([facility])Pain Management Progress NoteREPORT#:[id number] REPORT STATUS: SignedDATE:01/23/22 TIME: 07 PATIENT: VALENTINO DALAL UNIT #: [id number]#: [id number] [facility] [birth year] AGE: 66 SEX: F ATTEND: Fabricio Cartagena MDA AUTHOR: Indra Humphries APRN * ALL edits or amendments must be made on the electronic/computer document * SubjectiveChief complaint:Post OP Pain Management Requested by Surgeon Right hip and Right Leg pain s/p Right Hip Arthroplasty Revision with ORIF of periprosthetic femur fractureHPI:Interval History: Right hip and Right Leg pain s/p Right Hip Arthroplasty Revision with ORIF of periprosthetic femur fracture. Consultation requested by Dr Cartagena to initiate TALENT ANALYST pump for patient last night. Patient reports her pain is primarily in the right anterior and lateral thigh area, not so much the hip. Due to the pain, patient's ability to tolerate walking is limited to the door of her room. Patient rated severe pain 9-10/10 with an inability to sleep. Patient reports significant improved pain management with the TALENT ANALYST pump, now 3-4/10. Patient reports finally getting a good night's sleep. Dr Inman contacted nursing staff this AM and he will see the patient todayComments:Vital Signs: Date Time Temp Pulse Resp B/P B/P Pulse O2 O2 Flow FiO2 Mean Ox Delivery Rate 01/23 0702 36.9 79 16 153/66 95.1 100 Room air 01/23 0538 35.5 80 16 159/80 106.2 100 Room air 01/23 0031 99 Room air 21 01/22 2202 36.1 78 16 137/66 90.1 97 Room air 01/22 1923 35.8 84 16 152/74 99.8 98 Room air 01/22 1920 Room air History: PMH: SVT-Ablation 1996, HTN, GERD, FORMER SMOKER 3PPD X 40 YRS POD: 4 Medication: DILAUDID Pump settings: BASAL RATE: O DOSE: 0.1MG DELAY: 8 MIN TALENT ANALYST Use: Moderate Activity status: OOB Pain: 3/10 Physical Exam: VAS: 3/10 LOS: Awake, Alert, Oriented Resp Quality: Regular, Unlabored, Even Side Effects: None PATIENT RESTING IN BED WATCHING TV AND APPEARS COMFORTABLE AND WELL RESTEDPlan: CONTINUE TALENT ANALYST PUMP PATIENT TO BE SEEN BY DR INMAN IN THE AM. at 0732 [facility] #:[id number] OF REPORT PRProgress vkyx5313-31-20J58:05:00Y.RCJA187979 14-0007AVAvailable for patient iaklRIKWOIQTZASJCS1792-52-86W08:33: 05 [facility] 2022-01-22 09:09:00 [id number] 4FlSQAjtuYoFlCJ eH0TBFQPRvXc4ZR2tqz21lGQNcxkeJn7B5A 4AXuxc1533-98-68X90:09:00 [facility] ([facility])Clinical NoteREPORT#:[id number] REPORT STATUS: SignedDATE:01/22/22 TIME: 908 PATIENT: VALENTINO DALAL UNIT #: [id number]#: [id number] ROOM/BED: [facility]-ADOB: [birth year] AGE: 66 SEX: F ATTEND: Fabricio Cartagena MDA AUTHOR: Fabricio Cartagena MD * ALL edits or amendments must be made on the electronic/computer document * Clinical NoteNote:Able to walk to the door yesterday. Pain significant. No Shortness of breath or chest symptoms. Afebrile VSSAlert, oriented, no acute distressWound clean and dry. No significant drainage.Neurologic and vascular systems intact distally.(-) Endy s(-) Calf tenderness A/P: s/p Joint Arthroplasty 1)Anticoagulation instituted 2)PT progressing 3)Following labs 4)Discharge planning - likely tomorrow 5) Will add a couple more days of Toradol, as it helps significantly with herpain Last Documented: Result Date Time Pulse Ox 95 01/22 717 B/P 158/49 01/22 717 B/P Mean 85.5 01/22 717 O2 Delivery Room air 01/22 717 Temp 96.4 01/22 717 Pulse 70 01/22 717 Resp 18 01/22 717 FiO2 32 01/20 0306 O2 Flow Rate 3 01/20 0306 at 0910 [facility] #:[id number] OF REPORT CLClinical adxq3329-45-79D03:09:00Y.LAGS047653 13-0012AVAvailable for patient tyvpKCCEHOJKXXDBLU4614-24-65U88:11: 15 [facility] 2022-01-21 11:20:00 [id number]/Yl BdR0od8/O2v4UXx MDB6kgX0idw3flp+wY+2zSB50WksoQccrM6 lI7d/15738-83-77M95:20:00 [facility]Orthopaedic Progress NoteREPORT#:[id number] REPORT STATUS: SignedDATE:01/21/22 TIME: 1120 PATIENT: VALENTINO DALAL UNIT #: [id number]#: [id number] [facility] [birth year] AGE: 66 SEX: F ATTEND: Fabricio Cartagena AUTHOR: Elida Kebede * ALL edits or amendments must be made on the electronic/computer document * Diagnosis, Assessment PlanFree text A P:Comfortable. Pain moderate. No Shortness of breath or chest symptoms. Afebrile VSSAlert, oriented, no acute distressWound clean and dry. No significant drainage.Neurologic and vascular systems intact distally.(-) Endy s(-) Calf tenderness A/P: s/p Joint Arthroplasty 1)Anticoagulation instituted 2)PT progressing 3)Following labs 4)Discharge planning - will plan to keep patient here at least one more nightdue to issues with pain control. at 1122 at 0908 RPT #:[id number] OF REPORT PRProgress jfuy7943-39-91K78:20:00Y.QZLB622014 12-0032AVAvailable for patient qyzwDFEWRRVRYYLGAU1117-24-34A55:22: 45 [facility] 10:40:00 [id number] cLIWD+d6tjZS4cB eES4lqRhq+fpVWcr5cVhevnWnqXG5z8Aife acTCUL5177-76-34F40:40:00 [facility]Orthopaedic Progress NoteREPORT#:[id number] REPORT STATUS: SignedDATE:01/20/22 TIME: 1040 PATIENT: VALENTINO DALAL UNIT #: [id number]#: [id number] ROOM/BED: [facility]-ADOB: [birth year] AGE: 66 SEX: F ATTEND: Fabricio Cartagena MDADM AUTHOR: Hafsa Mathew * ALL edits or amendments must be made on the electronic/computer document * SubjectiveHPI:Patient sleeping upon exam. No family in the room. ObjectiveVS:Last Documented: Result Date Time Pulse Ox 97 01/20 722 B/P 154/68 01/20 722 B/P Mean 96.5 01/20 722 O2 Delivery Room air 01/20 722 Temp 36.8 01/20 722 Pulse 73 01/20 722 Resp 16 01/20 722 FiO2 32 01/20 306 O2 Flow Rate 3 01/20 306 PATIENT WEIGHT: Weight (lb): 175Weight (oz): 14.86Weight (kg): 79.800 Medications:Active Meds + DC'd Last 24 HrsKetorolac Tromethamine (TORADOL) 15 MG Q6H PRN PRN IV Famotidine (PEPCID) 40 MG DAILY PO Aspirin (ASPIRIN) 81 MG BID@0600,1700 PO Dexamethasone Sodium Phosphate 10 MG ONCE ONE IV Ketorolac Tromethamine (TORADOL) 15 MG Q6HR IV (DC) Methocarbamol (ROBAXIN) 500 MG Q6H PRN PRN PO (DC) Docusate Sodium (COLACE) 100 MG BID PO [...] (CAN) Lactated Ringer's (LACTATED RINGERS) 1,000 ML .Q10H IV Magnesium Hydroxide (MILK OF MAGNESIA) 30 ML BEDTIME PRN PRN PO Ondansetron HCl (ZOFRAN) 4 [...] (DC) Dexamethasone Sodium Phosphate (DECADRON) 8 MG .STK-MED ONE IV (DC) Esmolol HCl (BREVIBLOC) 100 MG .STK-MED ONE IV (DC) Fentanyl Citrate (SUBLIMAZE) 100 MCG .STK-MED ONE IV (DC) Hydromorphone HCl (DILAUDID) 2 MG .STK-MED ONE IV (DC) Ketamine HCl (Ketamine HCl) 100 MG .STK-MED ONE IV (DC) Lactated Ringer's (LACTATED RINGERS) 4,000 ML .STK-MED ONE IV (DC) Lidocaine HCl (XYLOCAINE MPF 1% 5 mL) 5 ML .STK-MED ONE IV (DC) Midazolam HCl (VERSED) 5 MG .STK-MED ONE IV (DC) Nicardipine HCl (CARDENE I.V.) 25 MG .STK-MED ONE IV (DC) Ondansetron HCl (ZOFRAN) 4 MG .STK-MED ONE IV (DC) Propofol (DIPRIVAN) 200 MG .STK-MED ONE IV (DC) Rocuronium Monroe (Rocuronium Monroe 10 mg/mL) 50 MG .STK-MED ONE IV (DC) Sodium Chloride (SODIUM CHLORIDE 0.9%) 100 ML .STK-MED ONE IV (DC) Sugammadex Sodium (Bridion) 200 MG .STK-MED ONE IV (DC) Tranexamic Acid (CYKLOKAPRON) 2,000 MG .STK-MED ONE IV (DC) Vecuronium Monroe (NORCURON) 10 MG .STK-MED ONE IV (DC) Oxycodone/Acetaminophen (PERCOCET) 1 TAB Q6H PRN PRN PO (DC) Oxycodone/Acetaminophen (PERCOCET) 2 TAB Q6H PRN PRN PO (DC) Cefazolin Sodium (KEFZOL) 0 .STK-MED ONE .ROUTE (DCr) Aztreonam (AZACTAM) 0 .STK-MED ONE .ROUTE (DC) Albumin Human (ALBUMINAR-5) 500 ML .STK-MED ONE IV (DC) Pharmacy Profile Note (CLARIFICATION NEEDED) PATIENT W/ CONVULSIONS TO PCN, CAN SHE TOLERATE ANCEF? Nurse Do not delete this Rx. Pharmacy will delete. To remove the admin time, use FD (full document) Given = No Q2HR MISC (DC) Fentanyl Citrate (SUBLIMAZE) 25 MCG PACU Q5MIN PRN PRN IV (DC) Hydralazine HCl (hydrALAZINE HCL) 10 MG PACU Q10MIN PRN PRN IV (DC) Hydrocodone Bitart/Acetaminophen (NORCO 5/325 TABLET) 1 UDTAB PACU Q4H PRN PRN PO (DC) Hydrocodone Bitart/Acetaminophen (NORCO 10/325 TABLET) 1 UDTAB PACU Q4H PRN PRN PO (DC) Hydromorphone HCl (DILAUDID) 0.2 MG PACU Q5MIN PRN PRN IV (DC) Meperidine HCl (MEPERIDINE HCL) 12.5 MG PACU Q5MIN PRN PRN IV (DC) Methocarbamol (ROBAXIN) 500 MG PACU ONCE PRN PO (DC) Metoprolol Tartrate (LOPRESSOR) 2 MG PACU Q10MIN PRN PRN IV (DC) Ondansetron HCl (ZOFRAN) 4 MG PACU ONCE PRN PRN IV (DC) Acetaminophen (TYLENOL) 650 MG PREOP ONCE PO (DC) Celecoxib (CeleBREX) 200 MG PREOP PO (DC) Lactated Ringer's (LACTATED RINGERS) 1,000 ML PREOP IV FLUID IV (DC) Lidocaine HCl (XYLOCAINE) 2 ML PREOP SUBQ (DC) Methocarbamol (ROBAXIN) 500 MG PREOP ONCE PO (DC) Physical ExamExtremities: Right femur with dressing C/D/I. Diagnosis, Assessment PlanFree text A P:POD#1 s/p right JEAN CARLOS with ORIF of periprosthetic fracture - DVT prophylaxis- PT- Pain control- CM on board for d/c planning at 1043 at 0902 RPT #:[id number] OF REPORT PRProgress [id number]:40:00Y.[id number] 9AVAvailable for patient qynaOHVILXDWWGMLXP0190-78-06O20:43: 56 [facility] 07:00:00 [id number]/[id number] OtRhJBtWne173d1 tsvlSKQdUSzRap87o2ptoFLd/p5ot1eYVtZ oWv4pp3081-23-41I58:00:00 [facility]Orthopaedic Progress NoteREPORT#:[id number] REPORT STATUS: SignedDATE:01/20/22 TIME: 0700 PATIENT: VALENTINO DALAL UNIT #: [id number]#: [id number] [facility]: [birth year] AGE: 66 SEX: F ATTEND: Fabricio Cartagena [facility] AUTHOR: Elida Kebede * ALL edits or amendments must be made on the electronic/computer document * Diagnosis, Assessment PlanFree text A P:Comfortable. Pain mild-moderate. No Shortness of breath or chest symptoms. Afebrile VSSAlert, oriented, no acute distressWound clean and dry. No significant drainage.Neurologic and vascular systems intact distally.(-) Endy s(-) Calf tenderness A/P: s/p Joint Arthroplasty 1)Anticoagulation instituted 2)PT progressing 3)Following labs 4)Discharge planning at 0700 at 0952 RPT #:[id number] OF REPORT PRProgress [id number]:00:00Y.[id number] 5AVAvailable for patient alduCATXKFOWKOUEPY7775-64-37U50:01: 05 [facility] 2022-01-20 06:58:00 [id number] a97W3uAr+6bLYTa C9q/5X45S3qICOthZC98QCDk8euV9slNqNG FZpZA94215-05-48Z16:58:986820-3379 [facility] [place] [address] PATIENT NAME: VALENTINO DALAL ADMIT DATE: 01/19/22ACCOUNT NO: [id number] ROOM NO: Y.507 AGE: 66 REPORT TYPE: OPERATIVE REPORT SEX: F ADMITTING PHYSICIAN:Fabricio Cartagena MD ATTENDING PHYSICIAN:Fabricio Cartagena MD OPERATION DATE: PREOPERATIVE DIAGNOSIS: Loosening of right hip arthroplasty. POSTOPERATIVE DIAGNOSIS: Loosening of right hip arthroplasty and femurfracture. PROCEDURES:1. Revision right total hip replacement.2. Open reduction and internal fixation of right femur. SURGEON: Fabricio Dawson M.D. CLERICAL GRADER: Vineet Weeks M.D. COMPONENTS USED IMPLANTS: Rubi Biomet Janusz 17 x 250 fully porous coatedcylindrical stem with a 58 body and a -6 dual mobility 44 mm femoral head, aBiomet PPS 56 mm acetabular component. ESTIMATED BLOOD LOSS: 700 mL. FINDINGS:1. Loosening of femoral stem.2. Minmimal, cracked proximal cement mantle.3. Well interdigitated distal cement mantle.4. Acetabular wear.5. Right leg was 1.5 cm long preoperatively6. Cement migration and interdigitation well distal to the stem. PROCEDURE IN DETAIL: The patient was brought to the operating room and placedin supine position. After induction of anesthesia, she was turned to the leftside and secured to the operating table. Right hip area was sterilely preppedand draped. Incision was made through the patient's old incision, but the entire oldincision was not necessarily at first. Dissection was sharply carried down through the subcutaneous tissues, the gluteus joyce and IT band were incised and split and held open with a Charnley retractor. The external rotators and capsule were taken down and tagged. The femoral head was dislocated and the stem was found to be loosely swimming within the proximal femur eroding the entire proximal femur. This was removed easily. PATIENT NAME: VALENTINO DALAL The femur was then retracted anteriorly and retractors were placed around theacetabulum. 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 Labrectomy was performed and soft tissue was removed from the acetabular fossaand then reaming was performed. A size 55 reamer created excellent bleedingbone in all the santizo areas and a 56 mm acetabular component was impacted intoposition in the correct amount of anteversion and lateral opening. This had anexcellent scratch fit. A trial dual mobility liner was placed. The decision was made to use a dual mobility in this patient who was ligamentously lax and high risk for dislocation, given the revision situation. We next came to the painstaking process of cement removal. I worked on it giorgio hour with osteotomes as well as the Ultra drive. The proxiaml cement was easy to remove, but distally, the cement was extremely well interdigitated and for several centimeters distal to the stem, with a solid cement column. During the process, the very thin osteoporotic bone began to fail, and there was noted to be a femoral fracture, which was displacing. The incison was extended distally, and the fracture site was exposed. There was also noted to be another separate fracture fragment. At this point in time, I asked Dr. Weeks to come in to help us with fixationof the femur fracture, given his expertise and the extremely poor bone quality, so that we could have an intact femur to work with. Even exposing into the fracture site, I had significant difficulty removing thiswell interdigitated distal cement. I had to use the Ultra drive as well asosteotomes for several centimeters until I was able to remove all the cementthrough the fracture site and removed the plastic plug. Next, the decision was made to proceed with implantation of a hip stem all theway down toward the knee, taking advantage of the intact distal diaphysealregion for fixation. Using a stem with distal fixation hasd been the plan all along, so these instruments were already available. This was reamed over a guidewire and had excellent cortical chatter at 17 mm.The stem was then after thorough irrigation opened and impacted into positionand had an excellent scratch fit. A body was prepared for it. A trial body was placed and the hip was relocatedfound to have excellent stability in flexion, internal rotation, with positionof sleep, in extension and external rotation. A trial x-ray demonstrated adequate positioning and sizing of the components. The hip was once again redislocated. The final body was impacted into positionand locked down and the hip was relocated once again. Next, a definitive fracture fixation was performed by Dr. Weeks as per hisoperative report. After thorough irrigation and a Betadine soak, the external rotators and capsulewere closed back to the trochanter through drill holes. PATIENT NAME: VALENTINO DALAL TROY The vastus lateralis was closed over the hardware as much as possible, and thenthe gluteus joyce and IT band were closed using Quill suture. Subcutaneoustissues were closed in a multilayered fashion using Vicryl and Monocryl sutureand david were used for skin. Sterile dressing was applied. The patient wasawakened and transported to the recovery room in stable condition having tolerated the procedure well. Dictated By: Fabricio Cartagena MD Date Dictated: 01/20/2022 06:58:26Date Transcribed: 01/20/2022 07:45:22SORIN/ZOHRA/Eileen #: [id number] ID: [id number] and Edited by Fabricio Cartagena MD On 01/22/22 7:58:29 AM at 0801 PATIENT NAME: VALENTINO DALAL TROY mesmlh6707-65-42M25:45:00Y.[id number] for patient hskdJZRQJVWGSCASBK7529-52-94F88:06: 40 [facility] 14:23:00 [id number] Vs2w1xI4HJNHAxI oeAk+yTA6NpXOuTVV5+gIfevC+QEBoHT9sl GgWGfv4101-92-53M17:23:00 [facility] ([facility])Brief Op NoteREPORT#:[id number] REPORT STATUS: SignedDATE:01/19/22 TIME: 1423 PATIENT: VALENTINO DALAL UNIT #: [id number]#: [id number] ROOM/BED: [place] [address]DOB: [birth year] AGE: 66 SEX: F ATTEND: Fabricio Cartagena [facility] AUTHOR: Fabricio Cartagena MD * ALL edits or amendments must be made on the electronic/computer document * Op/Inv Proc Note - BriefPre-procedure diagnosis:R LOOSE THAPost-procedure diagnosis: same as pre procedure dxProcedures performed:R REV THAPrimary Surgeon:Sunny-surgeon:Macrina ureñat(s): Lana TOVAR-CFindings:LOOSE STEM, ACETABULAR WEARWELL-EMBEDDED DISTAL CEMENT, WEAKENED BONEComplications: INTRAOP FEMUR FXEstimated blood loss in ml's: 700 CCSpecimens removed/altered: none at 2055 [facility] #:[id number] OF REPORT OPOperative htnwbd8436-35-68P56:23:00Y.VRUW5915 [id number] for patient lepoCMIFKFQJQXXWPJ9403-90-49X88:55: 20 [facility] 2021-11-21 11:37:00 [id number] HrdyfgI704i8IJk 0vXDLAGVEzPSKCDnnOA6bBqgG4/J/74IzL2 Vn8acL6128-72-84R13:37:038639-4845 [facility] [place] [address] PATIENT NAME: VALENTINO DALAL ADMIT DATE: ACCOUNT NO: [id number] ROOM NO: AGE: 66 REPORT TYPE: ELECTROCARDIOGRAM SEX: F ADMITTING PHYSICIAN:Fabricio Cartagena MD ATTENDING PHYSICIAN:Fabricio Cartagena MD Order:[id number] Reason : PRE-OP CLEARANCE HTN Test Date/Time Stamp:SunNov 21 2021 11:37:34Blood Pressure : / mmHGVent. Rate : 058 BPM Atrial Rate : 058 BPM P-R Int : 112 ms QRS Dur : 098 ms QT Int : 424 ms P-R-T Axes : 012 -08 061 degrees QTc Int : 416 ms Sinus bradycardiaOtherwise normal ECGWhen compared with ECG of 07-DEC-2014 12:02,No significant change was foundConfirmed by DOM FORBES MD ([id number]) on 11/22/2021 5:35:29 PM Referred By: Fabricio Cartagena Confirmed by:DOM FORBES MD PATIENT NAME: VALENTINO DALAL . [id number] for patient zzkcJKCRSGHDRSYBMB3291-08-98D75:35: 50 [facility]
--- NOTE | 2023-04-26 14:09 | ER ---
Nurse's Notes [facility] Name: Bernadine Dalal Age: 67 yrs Sex: Female : 1955 Arrival Date: 04/26/2023 Time: 13:00 Bed 11 Private MD: Joseph Pillai Diagnosis: rheumatoid arthritis flare, bilateral wrists Presentation: 04/26 13:32 Chief complaint: Patient states: B hand/wrist swelling for 1 week. Coronavirus screen: ll1 Client denies travel out of the [place] in the last 14 days. At this time, the client does not indicate any symptoms associated with coronavirus-19. Ebola Screen: Patient denies travel to an Ebola-affected area in the 21 days before illness onset. Initial Sepsis Screen: Does the patient meet any 2 criteria? No. Patient's initial sepsis screen is negative. Does the patient have a suspected source of infection? No. Patient's initial sepsis screen is negative. Risk Assessment: Do you want to hurt yourself or someone else? Patient reports no desire to harm self or others. Onset of symptoms was April 19, 2023. 13:32 Method Of Arrival: Wheelchair [facility] 13:32 Acuity: JODEE 3 ll1 Triage Assessment: 13:33 General: Appears uncomfortable, ill, Behavior is calm, cooperative, appropriate for ll1 age. Pain: Complains of pain in B wrists Quality of pain is described as aching, throbbing. Musculoskeletal: Circulation, motion, and sensation intact. Capillary refill < 3 seconds, Swelling present in L wrist. Historical: - Allergies: 13:07 PENICILLINS; ll1 13:07 Vancomycin; ll1 - PMHx: 13:07 BRAIN CYST; Chronic pain; fall/L hip fx; Hypertensive disorder; Migraines; SVT; ll1 prolapsed uterus; UTI; 13:34 RA; ll1 - PSHx: 13:07 Left hip replacement; Right hip replacement; Total abdominal hysterectomy; ll1 13:34 hip SX with hardware; ll1 - Immunization history:: Adult Immunizations up to date. - Social history:: Smoking status: Patient/guardian denies using tobacco. Screenin:16 [facility] ED Fall Risk Assessment (Adult) Score/Fall Risk Level 0 - 2 = Low Risk. Abuse as6 screen: Denies threats or abuse. Denies injuries from another. Nutritional screening: No deficits noted. Tuberculosis screening: No symptoms or risk factors identified. Assessment: 14:17 General: Appears uncomfortable, Behavior is calm, cooperative. Pain: Complains of pain as6 in right hip. Respiratory: Respiratory effort is even, unlabored, Respiratory pattern is regular, symmetrical. Derm: Wound noted right hip Wound is post surgical site, david in place. Vital Signs: 13:32 BP 145 / 79; Pulse 85; Resp 17; Temp 99.2; Pulse Ox 100% ; Pain 10/10; ll1 13:32 Pain Scale: Adult ll1 ED Course: 13:02 Patient arrived in ED. mr 13:02 Joseph Pillai is Private Physician. mr 13:03 Sara Walters PA-C is [facility]. sb4 13:03 Sae Miranda MD is Attending Physician. sb4 13:08 Arm band placed on. ll1 13:33 Triage completed. ll1 13:58 Eric Beltran, TAMMY is Primary Nurse. as6 14:08 PradipjacobJoseph is Referral Physician. sb4 14:18 Bed in low position. Call light in reach. Provided Education on: follow up. as6 14:18 No provider procedures requiring assistance completed. Patient did not have IV access as6 during this emergency room visit. Administered Medications: 13:40 CANCELLED (Other Intervention Used): dexamethasone 10 mg IM once sb4 14:13 Drug: morphine IM 4 mg IM once Route: IM; Site: right ventrogluteal; as6 14:32 Follow up: Response: No adverse reaction as6 14:13 Drug: Ondansetron Oral Disintegrating Tablet Oral Disintegrating Tablet 4 mg PO once as6 Route: PO; 14:32 Follow up: Response: No adverse reaction as6 14:13 Drug: MethylPREDNISolone Sodium Succinate IM 125 mg IM once Route: IM; Site: right as6 ventrogluteal; 14:31 Follow up: Response: No adverse reaction as6 Medication: 14:18 VIS not applicable for this client. as6 Outcome: 14:08 Discharge ordered by . sb4 14:18 Discharged to home via wheelchair, with family, as6 14:18 Condition: stable 14:32 Discharge instructions given to patient, Instructed on discharge instructions, follow as6 up and referral plans. medication usage, Demonstrated understanding of instructions, follow-up care, medications, Prescriptions given X 2, 14:32 Patient left the ED. as6 Signatures: Noris Diaz, Reg Reg mr Sobeida Stahl RN RN ll1 Eric Beltran RN RN as6 Sara Walters, PASugey PASugey sb4 Corrections: (The following items were deleted from the chart) 13:08 13:07 PMHx: fall/L hip fx; ll1 ll1 13:33 13:32 Pulse 85bpm; Resp 17bpm; Pulse Ox 100%; Temp 99.2F; Pain 12/19, Adult; ll1 ll1
--- NOTE | 2023-04-26 14:10 | EDPHYS ---
Physician Documentation [facility] Name: Bernadine Dalal Age: 67 yrs Sex: Female : 1955 Arrival Date: 04/26/2023 Time: 13:00 Bed 11 Private MD: Joseph Pillai ED Physician Sae Miranda HPI: 04/26 13:43 This 67 yrs old Female presents to ER via Wheelchair with complaints of Hand Swelling, sb4 Wrist swelling. 13:44 patient reports painful bilateral hand and wrist swelling as well as stiffness. she sb4 states that she has a history of RA and has not been on any daily medications for it in "awhile" she was on steroids and antibiotics recently for mastoiditis but had to stop them due to a recent hip surgery. she states that this pain feels like her RA pain. Historical: - Allergies: 13:07 PENICILLINS; ll1 13:07 Vancomycin; ll1 - PMHx: 13:07 BRAIN CYST; Chronic pain; fall/L hip fx; Hypertensive disorder; Migraines; SVT; ll1 prolapsed uterus; UTI; 13:34 RA; ll1 - PSHx: 13:07 Left hip replacement; Right hip replacement; Total abdominal hysterectomy; ll1 13:34 hip SX with hardware; ll1 - Immunization history:: Adult Immunizations up to date. - Social history:: Smoking status: Patient/guardian denies using tobacco. ROS: 13:44 Constitutional: Negative for fever, chills, and weight loss, sb4 13:44 MS/extremity: Positive for pain, swelling, tenderness, of the right hand and left hand, 13:44 All other systems are negative, Exam: 13:44 Constitutional: This is a well developed, well nourished patient who is awake, alert, sb4 and in no acute distress. Head/Face: Normocephalic, atraumatic. Eyes: Extra-ocular motions intact. Periorbital areas with no swelling, redness, or edema. ENT: Mucous membranes moist. 13:44 Musculoskeletal/extremity: pain, mild swelling, no erythema in bilateral wrists and hands. pain with active and passive ROM. pulses and perfusion in tact. Vital Signs: 13:32 BP 145 / 79; Pulse 85; Resp 17; Temp 99.2; Pulse Ox 100% ; Pain 10/10; ll1 13:32 Pain Scale: Adult ll1 MDM: 13:28 Patient medically screened. sb4 14:08 Data reviewed: vital signs, nurses notes, and as a result, I will discharge patient. sb4 Test considered but Not performed: X-ray: not indicated, no injury, clinical diagnosis. Care significantly affected by the following chronic conditions: Hypertension. 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 04/26 13:38 Order name: Wound dressing: right hip; Complete Time: 14:16 sb4 Administered Medications: 13:40 CANCELLED (Other Intervention Used): dexamethasone 10 mg IM once sb4 14:13 Drug: morphine IM 4 mg IM once Route: IM; Site: right ventrogluteal; as6 14:32 Follow up: Response: No adverse reaction as6 14:13 Drug: Ondansetron Oral Disintegrating Tablet Oral Disintegrating Tablet 4 mg PO once as6 Route: PO; 14:32 Follow up: Response: No adverse reaction as6 14:13 Drug: MethylPREDNISolone Sodium Succinate IM 125 mg IM once Route: IM; Site: right as6 ventrogluteal; 14:31 Follow up: Response: No adverse reaction as6 Disposition Summary: 04/26/23 14:08 Discharge Ordered Notes: Location: Home sb4 Problem: an acute exacerbation sb4 Symptoms: have improved sb4 Condition: Stable sb4 Diagnosis - rheumatoid arthritis flare, bilateral wrists sb4 Followup: sb4 - With: Joseph Pillai - When: As needed - Reason: Recheck today's complaints, Re-evaluation by your physician Discharge Instructions: - Discharge Summary Sheet sb4 - Rheumatoid Arthritis, Tsxn-in-Kisp sb4 Forms: - Thank You Letter sb4 - Patient Portal Instructions sb4 - Leadership Thank You Letter sb4 Prescriptions: - Tramadol 50 mg Oral Tablet - take 1 tablet ORAL route every 8 hours as needed; 12 tablet; Refills: 0, sb4 Product Selection Permitted - Prednisone 20 mg Oral Tablet - take 2 tablets ORAL route once daily for 5 days; 10 tablet; Refills: 0, Product sb4 Selection Permitted Signatures: Sobeida Stahl RN RN ll1 Eric Beltran RN RN as6 Sara Walters PA-C PASugey sb4 Corrections: (The following items were deleted from the chart) 13:07 PMHx: fall/L hip fx; ll1 ll1 13:40 13:38 Dexamethasone IM 10 mg IM once ordered. sb4 sb4
[2023-04-26 14:45] VITALS: BP 145/79; TEMP 99.2; O2SAT 100
== END ==
LOC: ER 13:00
DX: M06.9 Rheumatoid arthritis, unspecified (principal); M25.531 Pain in right wrist; I10 Essential (primary) hypertension; Z96.643 Presence of artificial hip joint, bilateral; Z88.0 Allergy status to penicillin; Z88.1 Allergy status to other antibiotic agents
CPT/HCPCS: 96372; 99284; Q0162; J2930

== ENCOUNTER 2023-06-15 13:41 | Emergency (ER) | payer OTHER ==
--- OUTSIDE RECORDS SUMMARY | 2023-06-15 13:49 | XMS REPORT | Continuity of Care Document ---
Author Name Unknown Address [address] [facility] [address] [place] [address] [facility] Address [address] [facility] [place] [address] Care Team Providers Care Md Do Resident Urgent Care Name Role Phone Patric Cole Primary Care Physician [phone] Patric Cole Attending Clinician Unavailable Andreas Linares Attending Clinician Unavailable STEFANIE GOODMAN Attending Clinician Unavailable Radiology Attending Clinician Unavailable RADIOLOGY Attending Clinician Unavailable Doctor Unassigned, [place] Attending Clinician U navailable [place]_Osiel_Libby_ Attending Clinician Unavail able Vineet Weeks Attending Clinician Unavailable Maricarmen Nguyen MD Attending Clinician INES_GCBZW_Lizz_S Attending Clinician Unavaila MARICARMEN Cardoso Attending Clinician Unavailable Fabricio Cartagena Attending Clinician Unavailabl Fabricio Eller Attending Clinician [phone] DES GILLETTE Attending Clinician Unavailable Green GRAPHIC TECHNICIAN, Des Attending Clinician SHANNAN ROY Attending Clinician Unavailable MARCK HANNA Attending Clinician Unavailab MARCK Mariscal Attending Clinician Unavailab jessika Pugh, [facility] Main Attending Clinician UnavailERICA Bell Attending Clinician Unavailable ERICA CABA Attending Clinician Unavailable Erica Caba DO Attending Clinician Gramm GRAPHIC TECHNICIAN, Sana A Attending Clinician [phone] GRAMM, SANA A Attending Clinician Unavailable Johanny Kaplan MD Attending Clinician [phone] GRACY MCKEON Attending Clinician Unavailab JOHANNY Moore Attending Clinician Unavailable Tri Chin MD Attending Clinician TRI CHIN Attending Clinician Unavailbert castellon Nurse, [facility] Surgery Gu Attending Clinician Paul Diaz DO Attending Clinician Osito Rodriguez DO Attending Clinician [phone] Geovany Carbone MD Attending Clinician Sergio PAC, K Sue Attending Clinician [phone] Kendra Oden MD Attending Clinician [phone] GEOVANY CARBONE Attending Clinician Unavailable ELIEL SAUCEDA Attending Clinician Unavail able KENDRA ODEN Attending Clinician Unavailable Patric Cole Admitting Clinician Unavailable Bernice Admitting Clinician Unavail able Vineet Weeks Admitting Clinician Unavailable INES_GCBZW_Lizz_Emelyn Admitting Clinician Unavaila Fabricio Ledesma Admitting Clinician UnavailMARICARMEN Leyva Admitting Clinician Unavailable SHANNAN ROY Admitting Clinician Unavailable Payers Payer Name Policy Type Policy Number Effective Date Expirati on Date Source [facility] MEDICAID STAR [id number] 2021 00:00:00 [facility] STAR PLUS [id number] 2020 00:00:00 [facility] [id number] 00:00:00 [facility] [place] STAR PL[place] [id number] 00:00:00 [place] [employer] [id number] 2021 00:00:00 [facility] [place]MEDICAID REPLACEMENT - HMO) [id number] 2023 00:00:00 [facility] (MEDICARE DME REGION C) [id number] 2021 00:00:00 [place]/ADVANTA GE - HMO) [id number] 2022 00:00:00 2023 00:00:00 [place] [id number] Problems Condition Name Condition Details Condition Category [...] Loosening of Hip Joint Prosthesis Problem Active 2021-03 1-22 00:00: 00 [facility] [...] Recurre nce 10-11 00:00: 00 Lucas mendiola [facility] Pain of left hip joint Pain [...] 00 [facility] [id number] Primary osteoarthr itis of right shoulder Problem Active [facility] [id number] Hip joint replacemen t by other means Problem Active [facility] [id number] Recurrent UTI Problem Active [facility] [id number] Hematuria, unspecifie d type Problem Active [facility] Allergies, Adverse Reactions, Alerts Allergy Name Allergy Type Status Severity Reaction(s) Onset Date Inactive Date Treating Clinician Comments Source Iodinate d Contrast Media DA Active [place] "INSIDES ON FIRE", HYPERVENTILA MANUEL 04-19 00:00: 00 [facility] Penicill ins DA Active SV convulsions 04-19 00:00: 00 [facility] vancomyc in DA Active [place] HIVES, SKIN PEELED OFF, EXTREME RED SKIN 04-19 00:00: 00 [facility] Iodinate d Contrast Media DA Active [place] "INSIDES ON FIRE", HYPERVENTILA MANUEL 04-04 00:00: 00 [facility] Penicill ins DA Active SV convulsions 04-04 00:00: 00 [facility] vancomyc in DA Active [place] HIVES, SKIN PEELED OFF, EXTREME RED SKIN 04-04 00:00: 00 [facility] METOPROL OL DRUG INGREDI Active Other-Cmnt 2021-03 00:00: 00 [facility] Metoprol ol Propensi ty to adverse reaction s Active Other - See comments 2021-03 00:00: 00 migraine [facility] Vancomyc in Propensi ty to adverse reaction s to drug Active Other - See comments 2016-03 00:00: 00 [facility] VANCOMYC IN DRUG INGREDI Active High Other-Cmnt 2016-03 00:00: 00 [facility] Penicill in Propensi ty to adverse reaction s Active Other - See comments 2015-03 00:00: 00 [facility] PENICILL IN DRUG INGREDI Active Other-Cmnt 2015-03 00:00: 00 [facility] Iodinate d Contrast Media DA Active [place] "INSIDES ON FIRE", HYPERVENTILA MANUEL 2014-03 00:00: 00 [facility] Penicill ins DA Active SV convulsions 2014-03 00:00: 00 [facility] vancomyc in DA Active [place] HIVES, SKIN PEELED OFF, EXTREME RED SKIN 2014-03 00:00: 00 [facility] PENICILL IN Allergy to substanc e Active 03-19 00:00: 00 [facility] Penicill in Penicill in Active Unknown [facility] Vancomyc in Vancomyc in Active Unknown [facility] Vancomyc in Allergy to substanc e Active Severe Other [facility] Social History Social Habit Start Date Stop Date Quantity Comments Source History of Tobacco Use [facility] Sex Assigned At [facility] Exposure to SARS-CoV-2 (event) 2021-12-19 00:00:00 2021-12-29 12:30:00 Not sure [facility] Alcohol intake 2021-10-20 00:00:00 2021-10-20 00:00:00 Lifetime non-drinker (finding) [facility] Tobacco use and exposure 2021-05-09 00:00:00 2021-05-09 00:00:00 Smokeless tobacco non-user [facility] Cigarettes smoked current (pack per day) - Reported 2021-05-09 00:00:00 2021-05-09 00:00:00 [facility] Cigarette pack-years 2021-05-09 00:00:00 2021-05-09 00:00:00 [facility] History of Social function 2021-05-09 00:00:00 2021-05-09 00:00:00 [facility] Smoking Status Start Date Stop Date Source Never Smoker [facility] Former Smoker 2021-09-06 00:00:00 2021-09-06 00:00:00 [facility] Medications Ordered Medication Name Filled Medication Name Start Date Stop Date Current Medication? Ordering Clinician Indication Dosage Frequency Signature (SIG) Comments Components Source phenazopyri dine (PYRIDIUM) 200 mg tablet 10-20 00:00: 00 Yes [id number] 200mg Take 1 tablet by mouth every 8 (eight) hours as needed for Pain. [facility] ALPRAZolam 1 mg tablet 2020-03 0- 00:00: 00 Yes [facility] ciprofloxac in HCl 500 mg tablet 10-07 00:00: 00 05-09 00:00 :00 No [id number] 500mg Take 1 tablet by mouth every 12 (twelve) hours. [facility] Kenalog (Triamcinol one) Kenalog (Triamcinol one) 3 00:00: 00 No 40mg [facility] Bupivicaine [place] Bupivicaine [place] 308 00:00: 00 No 2.5mg [facility] Kenalog (Triamcinol one) Kenalog (Triamcinol one) 3- 00:00: 00 No 40mg [facility] Bupivicaine [place] Bupivicaine [place] 05-17 00:00: 00 No 2.5mg [facility] Bupivicaine [place] Bupivicaine [place] 2019-03 2 00:00: 00 No 2.5mg [facility] Kenalog (Triamcinol one) Kenalog (Triamcinol one) 2019-03 2 00:00: 00 No 40mg [facility] Bupivicaine [place] Bupivicaine [place] 2019-03 00:00: 00 No 2.5mg [facility] Kenalog (Triamcinol one) Kenalog (Triamcinol one) 2019-03 2 00:00: 00 No 40mg [facility] Nitrofurant oin&Nit. Macrocryst (MACROBID) 100 mg capsule 915 00:00: 00 Yes [id number] 100mg Take 1 capsule by mouth as needed for Other (after intecourse ). [facility] Bupivicaine [place] Bupivicaine [place] 10-12 00:00: 00 No 5mL [facility] Kenalog (Triamcinol one) Kenalog (Triamcinol one) 10-12 00:00: 00 No 40mg [facility] Bupivicaine [place] Bupivicaine [place] 10-12 00:00: 00 No 5mL [facility] Kenalog (Triamcinol one) Kenalog (Triamcinol one) 8 00:00: 00 No 40mg [facility] Meloxicam Meloxicam 10-12 00:00: 00 11-11 00:00 :00 No Justice Sherman 1 tablet [facility] Estrace Estrace 04-24 00:00: 00 Yes [facility] Sherman as directed [facility] Estrace 0.1 MG/GM Estrace 0.1 MG/GM 04-24 00:00: 00 No Estrace 0.1 MG/GM Estrace 0.1 MG/GM Estrace 0.1 MG/GM 04-24 00:00: 00 No Estrace 0.1 MG/GM morpHINE E.R. (MS CONTIN) 30 mg SR tablet 12-06 00:00: 00 05-09 00:00 :00 No [facility] morpHINE I.R. (MSIR) 15 mg tablet 12-06 00:00: 00 05-09 00:00 :00 No [facility] Robaxin-750 750 mg tablet 1 po [...] spasm [facility] Robaxin-750 [...] daily [facility] [place] [...] pain [facility] [place] 10 mg-325 mg tablet 1-2 every 4-6 hours prn pain [place] 10 mg-325 mg tablet 1-2 every 4-6 hours prn pain 09-03 00:00: 00 No [place] 10 mg-325 mg tablet 1-2 every 4-6 hours prn pain [facility] ofloxacin [...] (1) TABLET(S) BY MOUTH ONCE A DAY. [facility] albuterol sulfate [...] No estradiol 0.01% (0.1 mg/gram) vaginal cream [facility] fentanyl 50 mcg/hr transdermal patch APPLY ONE PATCH TO SKIN EVERY 72 HOURS fentanyl 50 mcg/hr transdermal patch APPLY ONE PATCH TO SKIN EVERY 72 HOURS No fentanyl 50 mcg/hr transderma l patch APPLY ONE PATCH TO SKIN EVERY 72 HOURS [facility] fentanyl 75 mcg/hr transdermal patch fentanyl 75 mcg/hr transdermal patch No fentanyl 75 mcg/hr transderma l patch [facility] gabapentin 300 mg capsule gabapentin 300 mg capsule No gabapentin 300 mg capsule [facility] hydrocodone 10 mg-acetamin [...] oral route as needed for 7 days. [facility] hydrocodone 5 mg-acetamin ophen 325 mg tablet hydrocodone 5 mg-acetamin ophen 325 mg tablet No hydrocodon e 5 mg-acetami nophen 325 mg tablet [facility] amlodipine 10 mg tablet amlodipine 10 mg tablet No amlodipine 10 mg tablet [facility] hydromorpho ne 4 mg tablet hydromorpho ne 4 mg tablet No hydromorph one 4 mg tablet [facility] ibuprofen 600 mg tablet TAKE ONE (1) TABLET(S) BY MOUTH EVERY SIX HOURS NEEDED FOR PAIN. TAKE WITH FOOD. ibuprofen 600 mg tablet TAKE ONE (1) TABLET(S) BY MOUTH EVERY SIX HOURS NEEDED FOR PAIN. TAKE WITH FOOD. No ibuprofen 600 mg tablet TAKE ONE (1) TABLET(S) BY MOUTH EVERY SIX HOURS NEEDED FOR PAIN. TAKE WITH FOOD. [facility] levofloxaci n 500 [...] TAKE 1 TABLET BY MOUTH EVERY DAY [facility] pregabalin 100 [...] No alendronat e 70 mg tablet [facility] alprazolam 0.5 mg tablet alprazolam 0.5 mg tablet No alprazolam 0.5 mg tablet [facility] amlodipine 10 mg tablet amlodipine 10 mg tablet No amlodipine 10 mg tablet [facility] amlodipine 5 mg tablet TAKE 1 TABLET BY MOUTH EVERY DAY amlodipine 5 mg tablet TAKE 1 TABLET BY MOUTH EVERY DAY No amlodipine 5 mg tablet TAKE 1 TABLET BY MOUTH EVERY DAY [facility] aspirin 81 mg [...] SIX HOURS WITH FOOD NEEDED FOR PAIN. [facility] levofloxaci n [...] mg tablet No Qulipta 60 mg tablet [facility] Robaxin RX by other Robaxin RX by other MD No Robaxin RX by other MD [facility] sulfamethox azole 800 mg-trimetho prim 160 mg tablet sulfamethox azole 800 mg-trimetho prim 160 mg tablet No sulfametho xazole 800 mg-trimeth oprim 160 mg tablet [facility] tizanidine 4 mg tablet TAKE 1 TABLET BY MOUTH AT BEDTIME tizanidine 4 mg tablet TAKE 1 TABLET BY MOUTH AT BEDTIME No tizanidine 4 mg tablet TAKE 1 TABLET BY MOUTH AT BEDTIME [facility] topiramate 25 mg tablet TAKE 1 TABLET BY MOUTH TWICE DAILY topiramate 25 mg tablet TAKE 1 TABLET BY MOUTH TWICE DAILY No topiramate 25 mg tablet TAKE 1 TABLET BY MOUTH TWICE DAILY [facility] tramadol 50 mg tablet TAKE ONE (1) TABLET(S) BY MOUTH EVERY EIGHT HOURS NEEDED. tramadol 50 mg tablet TAKE ONE (1) TABLET(S) BY MOUTH EVERY EIGHT HOURS NEEDED. No tramadol 50 mg tablet TAKE ONE (1) TABLET(S) BY MOUTH EVERY EIGHT HOURS NEEDED. [facility] Ubrelvy 100 mg tablet Ubrelvy 100 mg tablet No Ubrelvy 100 mg tablet [facility] fentanyl 50 mcg/hr transdermal patch APPLY ONE PATCH TO SKIN EVERY 72 HOURS fentanyl 50 mcg/hr transdermal patch APPLY ONE PATCH TO SKIN EVERY 72 HOURS No fentanyl 50 mcg/hr transderma l patch APPLY ONE PATCH TO SKIN EVERY 72 HOURS [facility] Xarelto 10 [...] days. [facility] albuterol [...] HOURS. [facility] meloxicam [...] days. [facility] doxycycline [...] ONE PATCH TO SKIN EVERY 72 HOURS [facility] fentanyl 75 [...] e 5 mg-acetami nophen 325 mg tablet [facility] hydrocodone 7.5 mg-acetamin ophen 325 mg tablet hydrocodone 7.5 mg-acetamin ophen 325 mg tablet No hydrocodon e 7.5 mg-acetami nophen 325 mg tablet [facility] hydromorpho ne 4 mg tablet hydromorpho ne 4 mg tablet No hydromorph one 4 mg tablet [facility] ibuprofen 600 [...] PAIN. [facility] methocarbam ol 500 mg tablet Take by oral route for 15 days. methocarbam ol 500 mg tablet Take by oral route for 15 days. No methocarba mol 500 mg tablet Take by oral route for 15 days. [facility] levofloxaci [...] [facility] prednisone 20 mg tablet prednisone 20 mg tablet No prednisone 20 mg tablet [facility] prednisone 5 mg tablet prednisone 5 mg tablet No prednisone 5 mg tablet [facility] metoprolol succinate ER 25 mg tablet,exte nded release 24 hr metoprolol succinate ER 25 mg tablet,exte nded release 24 hr No metoprolol succinate ER 25 mg tablet,ext ended release 24 hr [facility] pregabalin 100 mg capsule pregabalin 100 mg capsule No pregabalin 100 mg capsule [facility] Qulipta 60 mg tablet Qulipta 60 mg tablet No Qulipta 60 mg tablet [facility] Robaxin RX by other MD Robaxin RX by other MD No Robaxin RX by other MD [facility] sulfamethox azole [...] TAKE 1 TABLET BY MOUTH AT BEDTIME [facility] topiramate 25 [...] tablet [facility] nitroglycer in 0.4 mg sublingual tablet nitroglycer in 0.4 mg sublingual tablet No nitroglyce rin 0.4 mg sublingual tablet [facility] Xarelto 10 [...] MD [facility] albuterol [...] days. [facility] tizanidine 4 mg tablet TAKE 1 TABLET BY MOUTH AT BEDTIME tizanidine 4 mg tablet TAKE 1 TABLET BY MOUTH AT BEDTIME No tizanidine 4 mg tablet TAKE 1 TABLET BY MOUTH AT BEDTIME [facility] butalbital- [...] ONE PATCH TO SKIN EVERY 72 HOURS [facility] fentanyl 75 mcg/hr transdermal patch fentanyl 75 mcg/hr transdermal patch No fentanyl 75 mcg/hr transderma l patch [facility] topiramate 25 mg tablet TAKE 1 TABLET BY MOUTH TWICE DAILY topiramate 25 mg tablet TAKE 1 TABLET BY MOUTH TWICE DAILY No topiramate 25 mg tablet TAKE 1 TABLET BY MOUTH TWICE DAILY [facility] gabapentin 300 mg capsule gabapentin 300 mg capsule No gabapentin 300 mg capsule [facility] hydrocodone 10 mg-acetamin [...] oral route as needed for 7 days. [facility] hydrocodone 5 mg-acetamin ophen 325 mg tablet hydrocodone 5 mg-acetamin ophen 325 mg tablet No hydrocodon e 5 mg-acetami nophen 325 mg tablet [facility] hydrocodone 7.5 mg-acetamin ophen 325 mg tablet hydrocodone 7.5 mg-acetamin ophen 325 mg tablet No hydrocodon e 7.5 mg-acetami nophen 325 mg tablet [facility] hydromorpho ne 4 mg tablet hydromorpho ne 4 mg tablet No hydromorph one 4 mg tablet [facility] ibuprofen 600 mg tablet TAKE ONE (1) TABLET(S) BY MOUTH EVERY SIX HOURS WITH FOOD NEEDED FOR PAIN. ibuprofen 600 mg tablet TAKE ONE (1) TABLET(S) BY MOUTH EVERY SIX HOURS WITH FOOD NEEDED FOR PAIN. No ibuprofen 600 mg tablet TAKE ONE (1) TABLET(S) BY MOUTH EVERY SIX HOURS WITH FOOD NEEDED FOR PAIN. [facility] levofloxaci n 500 [...] SPASMS [facility] methotrexat e sodium 2.5 mg tablet methotrexat e sodium 2.5 mg tablet No methotrexa te sodium 2.5 mg tablet [facility] tramadol [...] NEEDED. [facility] oxycodone-a cetaminophe n 10 mg-325 mg tablet oxycodone-a cetaminophe n 10 mg-325 mg tablet No oxycodone- acetaminop hen 10 mg-325 mg tablet [facility] prednisone 20 mg tablet TAKE THREE (3) TABLET(S) BY MOUTH ONCE A DAY FOR 5 DAYS. prednisone 20 mg tablet TAKE THREE (3) TABLET(S) BY MOUTH ONCE A DAY FOR 5 DAYS. No prednisone 20 mg tablet TAKE THREE (3) TABLET(S) BY MOUTH ONCE A DAY FOR 5 DAYS. [facility] prednisone [...] other MD No Robaxin RX by other [facility] sulfamethox [...] DAY. [facility] Xarelto [...] in HCl Yes Justice Sherman not defined [facility] Nitrofurant oin Macrocrysta l Nitrofurant oin Macrocrysta l Yes Justice Sherman 1 capsule with food or milk [facility] Nitrofurant oin Monohyd Macro Nitrofurant oin Monohyd Macro Yes Justice Shemran not defined [facility] Fluticasone Propionate Fluticasone Propionate Yes Justice Sherman not defined [facility] Topiramate Topiramate Yes Justice Sherman not defined [facility] Levofloxaci n Levofloxaci n Yes Justice Sherman not defined [facility] Cyclobenzap rine HCl Cyclobenzap rine HCl Yes Justice Sherman not defined [facility] Robaxin-750 Robaxin-750 Yes Andry Sherman 1 tablet [facility] Tamsulosin HCl Tamsulosin HCl Yes Justice Sherman not defined [facility] Cephalexin Cephalexin Yes Justice Sherman not defined [facility] Tizanidine HCl Tizanidine HCl Yes Justice Sherman not defined [facility] Alprazolam Alprazolam Yes Justice Sherman not defined [facility] Tramadol HCl Tramadol HCl Yes Justice Sherman not defined [facility] Clonazepam Clonazepam Yes Justice Sherman not defined [facility] Fentanyl Fentanyl Yes Justice Sherman 1 patch to skin [facility] Topiramate Topiramate No Topiramate Nitrofurant oin Macrocrysta l 100 mg Nitrofurant oin Macrocrysta l 100 mg No 1{capsu le_with _food_o r_milk} QD Nitrofuran toin Macrocryst al 100 mg fentaNYL 75 MCG/HR fentaNYL 75 MCG/HR No 1{patch _to_ski n} fentaNYL 75 MCG/HR traMADol HCl traMADol HCl No traMADol HCl fentaNYL 75 MCG/HR fentaNYL 75 MCG/HR No 1{patch _to_ski n} fentaNYL 75 MCG/HR Nitrofurant oin Macrocrysta l 100 mg Nitrofurant oin Macrocrysta l 100 mg No 1{capsu le_with _food_o r_milk} QD Nitrofuran toin Macrocryst al 100 mg meloxicam 15 mg tablet Take 1 tablet [...] TAKE 1 TABLET BY MOUTH TWICE DAILY [facility] tramadol 50 [...] No Robaxin RX by other MD [facility] tizanidine 4 mg [...] 25 mg tablet,ext ended release 24 hr [facility] nitroglycer in 0.4 mg sublingual tablet nitroglycer in 0.4 mg sublingual tablet No nitroglyce rin 0.4 mg [facility]lingual [facility] ofloxacin 0.3 % eye drops ofloxacin 0.3 % eye drops No ofloxacin 0.3 % eye drops [facility] Robaxin RX by other Robaxin RX by other MD No Robaxin RX by other [facility] tizanidine 4 mg tablet TAKE 1 TABLET BY MOUTH AT BEDTIME tizanidine 4 mg tablet TAKE 1 TABLET BY MOUTH AT BEDTIME No tizanidine 4 mg tablet TAKE 1 TABLET BY MOUTH AT BEDTIME [facility] topiramate 25 mg tablet TAKE 1 TABLET BY MOUTH TWICE DAILY topiramate 25 mg tablet TAKE 1 TABLET BY MOUTH TWICE DAILY No topiramate 25 mg tablet TAKE 1 TABLET BY MOUTH TWICE DAILY [facility] tramadol 50 mg tablet Take 1 tablet every 6 hours by oral route as needed for 7 days. tramadol 50 mg tablet Take 1 tablet every 6 hours by oral route as needed for 7 days. No tramadol 50 mg tablet Take 1 tablet every 6 hours by oral route as needed for 7 days. [facility] Xarelto 10 [...] tablet No alendronat e 70 mg tablet [facility] amlodipine 10 [...] other No Robaxin RX by other MD [facility] [...] MD [facility] topiramate [...] tablet [facility] Immunizations Ordered Immunization Name Filled Immunization Name Date Status Comments Source SARS-COV-2 COVID-19 MODERNA 12+ YRS VACCINE 2020-07-07 00:00:00 Completed [facility] SARS-COV-2 COVID-19 MODERNA 12+ YRS VACCINE 2020-07-07 00:00:00 Completed [facility] SARS-COV-2 COVID-19 MODERNA 12+ YRS VACCINE 2020-07-07 00:00:00 Completed [facility] SARS-COV-2 COVID-19 MODERNA 12+ YRS VACCINE 2020-07-07 00:00:00 Completed [facility] SARS-COV-2 COVID-19 MODERNA 12+ YRS VACCINE 2020-07-07 00:00:00 Completed [facility] SARS-COV-2 COVID-19 MODERNA 12+ YRS VACCINE 2020-07-07 00:00:00 Completed [facility] SARS-COV-2 COVID-19 MODERNA VACCINE 2020-07-07 00:00:00 Completed [facility] SARS-COV-2 COVID-19 MODERNA VACCINE 2020-07-07 00:00:00 Completed [facility] SARS-COV-2 COVID-19 MODERNA VACCINE 2020-07-07 00:00:00 Completed [facility] SARS-COV-2 COVID-19 MODERNA 12+ YRS VACCINE 2020-07-07 00:00:00 Completed [facility] SARS-COV-2 COVID-19 MODERNA 12+ YRS VACCINE 2020-07-07 00:00:00 Completed [facility] SARS-COV-2 COVID-19 MODERNA 12+ YRS VACCINE 2020-07-07 00:00:00 Completed [facility] SARS-COV-2 COVID-19 MODERNA 12+ YRS VACCINE 2020-07-07 00:00:00 Completed [facility] SARS-COV-2 COVID-19 MODERNA 12+ YRS VACCINE 2020-07-07 00:00:00 Completed [facility] SARS-COV-2 COVID-19 MODERNA 12+ YRS VACCINE 2020-07-07 00:00:00 Completed [facility] SARS-COV-2 COVID-19 MODERNA VACCINE 2020-06-09 00:00:00 Completed [facility] SARS-COV-2 COVID-19 MODERNA VACCINE 2020-06-09 00:00:00 Completed [facility] SARS-COV-2 COVID-19 MODERNA VACCINE 2020-06-09 00:00:00 Completed [facility] SARS-COV-2 COVID-19 MODERNA 12+ YRS VACCINE 2020-06-09 00:00:00 Completed [facility] SARS-COV-2 COVID-19 MODERNA 12+ YRS VACCINE 2020-06-09 00:00:00 Completed [facility] SARS-COV-2 COVID-19 MODERNA 12+ YRS VACCINE 2020-06-09 00:00:00 Completed [facility] SARS-COV-2 COVID-19 MODERNA 12+ YRS VACCINE 2020-06-09 00:00:00 Completed [facility] SARS-COV-2 COVID-19 MODERNA 12+ YRS VACCINE 2020-06-09 00:00:00 Completed [facility] SARS-COV-2 COVID-19 MODERNA 12+ YRS VACCINE 2020-06-09 00:00:00 Completed [facility] SARS-COV-2 COVID-19 MODERNA 12+ YRS VACCINE 2020-06-09 00:00:00 Completed [facility] SARS-COV-2 COVID-19 MODERNA 12+ YRS VACCINE 2020-06-09 00:00:00 Completed [facility] SARS-COV-2 COVID-19 MODERNA 12+ YRS VACCINE 2020-06-09 00:00:00 Completed [facility] SARS-COV-2 COVID-19 MODERNA 12+ YRS VACCINE 2020-06-09 00:00:00 Completed [facility] SARS-COV-2 COVID-19 MODERNA 12+ YRS VACCINE 2020-06-09 00:00:00 Completed [facility] SARS-COV-2 COVID-19 MODERNA 12+ YRS VACCINE 2020-06-09 00:00:00 Completed [facility] SARS-COV-2 COVID-19 MODERNA 12+ YRS VACCINE Unknown Completed [facility] SARS-COV-2 COVID-19 MODERNA 12+ YRS VACCINE Unknown Completed [facility] SARS-COV-2 COVID-19 MODERNA 12+ YRS VACCINE Unknown Completed [facility] SARS-COV-2 COVID-19 MODERNA 12+ YRS VACCINE Unknown Completed [facility] SARS-COV-2 COVID-19 MODERNA 12+ YRS VACCINE Unknown Completed [facility] SARS-COV-2 COVID-19 MODERNA 12+ YRS VACCINE Unknown Completed [facility] SARS-COV-2 COVID-19 MODERNA 12+ YRS VACCINE Unknown Completed [facility] SARS-COV-2 COVID-19 MODERNA 12+ YRS VACCINE Unknown Completed [facility] SARS-COV-2 COVID-19 MODERNA 12+ YRS VACCINE Unknown Completed [facility] SARS-COV-2 COVID-19 MODERNA 12+ YRS VACCINE Unknown Completed [facility] SARS-COV-2 COVID-19 MODERNA 12+ YRS VACCINE Unknown Completed [facility] SARS-COV-2 COVID-19 MODERNA 12+ YRS VACCINE Unknown Completed [facility] Vital Signs Vital Name Observation Time Observation Value Comments S ource Height 2023-04-04 00:00:00 68 [in_i] [facility] Body Weight 2023-04-04 00:00:00 177.6 [lb_av] [facility] BMI (Body Mass Index) 2023-04-04 00:00:00 27 kg/m2 [facility] Height 2022-06-14 00:00:00 68 [in_i] [facility] BMI (Body Mass Index) 2022-06-14 00:00:00 25.8 kg/m2 [facility] Body Weight 2022-06-14 [...] Systolic blood pressure 2021-12-29 17:53:00 107 mm[Hg] [facility] Diastolic blood pressure 2021-12-29 17:53:00 67 mm[Hg] [facility] Heart rate 2021-12-29 17:53:00 74 /min [facility] temperature 2021-12-29 17:53:00 36.44 Sonam [facility] Respiratory rate 2021-12-29 17:53:00 18 /min [facility] Body height 2021-12-29 17:53:00 172.7 cm per pt [facility] Body weight 2021-12-29 17:53:00 81.965 kg [facility] BMI 2021-12-29 17:53:00 27.48 kg/m2 [facility] Oxygen saturation in Arterial blood by Pulse oximetry 2021-12-29 17:53:00 99 /min [facility] Height 2021-11-02 00:00:00 68 [in_i] [facility] BMI (Body Mass Index) 2021-11-02 00:00:00 25.8 kg/m2 [facility] Body Weight 2021-11-02 00:00:00 170 [lb_av] [facility] Systolic blood pressure 2021-10-20 15:53:00 160 mm[Hg] [facility] Diastolic blood pressure 2021-10-20 15:53:00 78 mm[Hg] [facility] Heart rate 2021-10-20 15:50:00 82 /min General acute hospital Body temperature 2021-10-20 15:50:00 36.89 Sonam [facility] Respiratory rate 2021-10-20 15:50:00 17 /min [facility] Body height 2021-10-20 15:50:00 172.7 cm [facility] Body weight 2021-10-20 15:50:00 77.565 kg [facility] BMI 2021-10-20 15:50:00 26.00 kg/m2 [facility] Oxygen saturation in Arterial blood by Pulse oximetry 2021-10-20 15:50:00 98 /min [facility] height 2021-09-06 08:30:00 68 [in_i] Commo n [facility] weight 2021-09-06 08:30:00 173.3 [lb_av] Co mmon [facility] bmi 2021-09-06 08:30:00 26.35 kg/m2 Comm on [facility] blood pressure systolic 2021-09-06 08:30:00 144 mm[Hg] [facility] blood pressure diastolic 2021-09-06 08:30:00 84 mm[Hg] [facility] height 2021-07-07 13:30:00 68 [in_i] Commo n [facility] weight 2021-07-07 13:30:00 176 [lb_av] Comm on [facility] temperature 2021-07-07 13:30:00 97.2 [degF] Com mon [facility] bmi 2021-07-07 13:30:00 26.76 kg/m2 Comm on [facility] blood pressure systolic 2021-07-07 13:30:00 148 mm[Hg] [facility] blood pressure diastolic 2021-07-07 13:30:00 73 mm[Hg] [facility] height 2021-06-07 13:00:00 68 [in_i] Commo n [facility] weight 2021-06-07 13:00:00 176 [lb_av] Comm on [facility] temperature 2021-06-07 13:00:00 96.8 [degF] Com mon [facility] bmi 2021-06-07 13:00:00 26.76 kg/m2 Comm on [facility] blood pressure systolic 2021-06-07 13:00:00 124 mm[Hg] [facility] blood pressure diastolic 2021-06-07 13:00:00 76 mm[Hg] [facility] Systolic blood pressure 2021-05-09 16:22:00 153 mm[Hg] [facility] Diastolic blood pressure 2021-05-09 16:22:00 73 mm[Hg] [facility] Heart rate 2021-05-09 16:22:00 69 /min General acute hospital Respiratory rate 2021-05-09 16:21:00 19 /min [facility] Body height 2021-05-09 16:21:00 172.7 cm [facility] Body weight 2021-05-09 16:21:00 81.285 kg [facility] BMI 2021-05-09 16:21:00 27.25 kg/m2 [facility] Oxygen saturation in Arterial blood by Pulse oximetry 2021-05-09 16:21:00 100 /min [facility] Procedures Procedure Date / Time Performed Performing Clinician Source DEXA PERIPHERAL (FOREARM) 2023-05-18 16:42:56 Requisition, Paper [facility] DEXA AXIAL (HIP AND SPINE) 2023-05-18 16:34:00 Fartun Clark [facility] CONSENT/REFUSAL FOR DIAGNOSIS AND TREATMENT 2023-05-18 15:41:16 Doctor Unassigned, [place] [facility] ASSIGNMENT OF BENEFITS 2023-05-18 15:41:06 Docto r Unassigned, [place] [facility] XR, femur, 2 or more view 2023-05-16 00:00:00 [facility] MEDICAL RELEASE/CLEARANCE FORMS 2023-04-05 06:01:00 Doctor Unassigned, [place] [facility] XR, femur, 2 or more view 2023-04-04 [...] 2022-02-15 00:00:00 [facility] [id number] 2022-01-20 00:00:00 MATVA.01 [facility] [id number] 2022-01-20 00:00:00 MATVA.01 [facility] Revise Hip Joint Replacement 2022-01-19 00:00:00 [facility] [id number] 2022-01-19 00:00:00 BRIMA.01 [facility] [id number] 2022-01-19 00:00:00 MATVA.01 [facility] [id number] 2022-01-19 00:00:00 MATVA.01 [facility] [id number] 2022-01-19 00:00:00 MATVA.01 [facility] ASSIGNMENT OF BENEFITS 2021-12-29 17:31:06 Sintia r Unassigned, [place] [facility] MEDICAL RELEASE/CLEARANCE FORMS 2021-12-14 05:01:00 Doctor Unassigned, [place] [facility] NOTICE OF BILLING PRACTICES FOR MEDICARE PATIENTS 2021-12-08 14:33:50 Doctor Unassigned, [place] [facility] MEDICAL RELEASE/CLEARANCE FORMS 2021-11-25 05:01:00 Doctor Unassigned, [place] [facility] XR, hip + pelvis, unilateral, 2 or 3 view 2021-11-02 00:00:00 [facility] POCT URINALYSIS 2021-10-20 15:58:00 Kelly Avalos [facility] HB ECG ROUTINE & RHYTHM STRIP 2021-05-09 16:14:24 Maricarmen Nguyen [facility] Plan of Care Planned Activity Planned Date Details Comments Source Future Appointment 2023-07-18 11:15:00 Vineet Weeks, [address] [place] [address] [facility] Instructions [facility] Encounters Start Date/Time End Date/Time Encounter Type Admission Type Attending [facility] Care Facility Care Department Encounter ID Source 2021-10-10 12:15:00 Outpatient Cole Patric [facility] [id number] [facility] 2021-09-06 08:26:01 Outpatient ColePatric [facility] [id number] [facility] 2021-06-07 14:54:02 Outpatient ColePatric [facility] [id number] [facility] 2021-05-23 15:27:02 Outpatient Patric Cole [facility] [id number] [facility] 2021-04-06 12:20:03 Outpatient ColePatric [facility] [id number] [facility] 2021-04-06 11:34:20 Outpatient Patric Cole [facility] [id number] [facility] 2021-03-07 10:45:00 Inpatient Andreas Rodriguez [facility] EDUARDO [id number] [facility] 2021-01-12 13:28:28 Outpatient [facility] [id number] [facility] 2021-01-10 11:46:45 Outpatient STEFANIE GOODMAN [facility] [id number] [facility] 2021-01-08 23:01:54 Emergency [facility] [id number] [facility] 2021-01-08 20:27:01 Emergency [facility] [id number] [facility] 2023-05-18 10:28:07 2023-05-18 23:59:00 Hospital Encounter Radiology [facility] [id number] [id number] [id number] [facility] 2023-05-18 09:41:28 2023-05-18 10:27:00 Outpatient R RADIOLOGY [facility] [id number] [facility] 2023-05-18 09:41:28 2023-05-18 10:27:00 Hospital Encounter Radiology [facility] [id number] [id number] [id number] [facility] 2023-05-18 00:00:00 2023-05-18 00:00:00 Orders Only Doctor Unassigned, [place] [facility] [id number] [id number] [id number] [facility] 2023-05-17 00:00:00 2023-05-17 00:00:00 Outpatient [place]_Osiel De La Vega AOSM AOSM [id number] [facility] 2023-05-16 00:00:00 2023-05-16 00:00:00 Outpatient FOG_Osiel _Libby_ AOSM AO [id number] [facility] 2023-05-16 00:00:00 2023-05-16 00:00:00 Vineet Weeks MD: [address] [place], [place] [id number] , Ph. [phone] [facility] [place] - [facility] [place] [facility] [id number] [facility] 2023-05-13 00:00:00 2023-05-13 00:00:00 Outpatient FOG_Osiel _Vasil_ AO AO [id number] [facility] 2023-05-10 00:00:00 2023-05-10 00:00:00 Outpatient FOG_Osiel _Libby_ AO AO [id number] [facility] 2023-05-02 00:00:00 2023-05-02 00:00:00 Vienet Weeks MD: [address] [place] [address] , Ph. [phone] [facility] [place] [facility] [place] [facility] [id number] [facility] 2023-04-23 00:00:00 2023-04-23 00:00:00 Outpatient FOG_Osiel _Libby_ AO AO [id number] [facility] 2023-04-19 06:14:00 2023-04-20 15:05:00 Inpatient Vineet Roe [facility] [id number] [facility] 2023-04-19 00:00:00 2023-04-19 00:00:00 Vineet Weeks MD: [address] [place] [address] , Ph. [phone] [facility] [place] [facility] [place] [facility] FOG_Surgery [id number] [facility] 2023-04-12 00:00:00 2023-04-12 00:00:00 Outpatient FOG[facility] [id number] [facility] 2023-04-05 00:00:00 2023-04-05 00:00:00 Telephone Maricarmen Nguyen [facility] [id number] [id number] [facility] 2023-04-05 00:00:00 2023-04-05 00:00:00 Orders Only Doctor Unassigned, [place] [facility] 1..840.114 350.1.13.10 [id number] [id number] [facility] 2023-04-04 00:00:00 2023-04-04 00:00:00 Fabricio Cartagena MD: [address] [place] [address] , Ph. [phone] [facility] [place] [facility] [id number] [facility] 2023-03-26 00:00:00 2023-03-26 00:00:00 Outpatient FOG_Osiel _Domitila AO AO [id number] [facility] 2023-03-22 00:00:00 2023-03-22 00:00:00 Outpatient FOG_Osiel _Libby_ AO AO [id number] [facility] 2023-01-24 00:00:00 2023-01-24 00:00:00 Outpatient FOG_Osiel _Libby_ AO AO [id number] [facility] 2023-01-08 00:00:00 2023-01-08 00:00:00 Outpatient GC_GCBZW_Ka diyala_S [facility] [id number] [facility] 2023-01-07 00:00:00 2023-01-07 00:00:00 Outpatient GC_GCBZW_Ka diyala_S [facility] [id number] [facility] 2022-12-28 00:00:00 2022-12-28 00:00:00 Outpatient FOG_Mathews _Vasil_MD AOSM AOSM [id number] [facility] 2022-12-28 00:00:00 2022-12-28 00:00:00 Outpatient FOG_Mathews _Vasil_MD AOSM AOSM [id number] [facility] 2022-12-11 00:00:00 2022-12-11 00:00:00 Outpatient FOG_Mathews _Vasil_MD AOSM AOSM [id number] [facility] 2022-12-11 00:00:00 2022-12-11 00:00:00 Outpatient FOG_Mathews _Vasil_MD AOSM AOSM [id number] [facility] 2022-12-11 00:00:00 2022-12-11 00:00:00 Outpatient FOG_Mathews _Vasil_MD AOSM AOSM [id number] [facility] 2022-09-11 00:00:00 2022-09-11 00:00:00 Outpatient FOG_Mathews _Vasil_MD AOSM AOSM [id number] [facility] 2022-08-18 00:00:00 2022-08-18 00:00:00 Outpatient FOG_Mathews _Vasil_MD AOSM AOSM [id number] [facility] 2022-08-15 00:00:00 2022-08-15 00:00:00 Outpatient FOG_Mathews _Vasil_MD AOSM AOSM [id number] [facility] 2022-08-08 00:00:00 2022-08-08 00:00:00 Outpatient FOG_Mathews _Vasil_MD AOSM AOSM [id number] [facility] 2022-08-08 00:00:00 2022-08-08 00:00:00 Outpatient FOG_Mathews _Vasil_MD AOSM AOSM [id number] [facility] 2022-08-08 00:00:00 2022-08-08 00:00:00 Outpatient FOG_Mathews _Vasil_MD AOSM AOSM [id number] [facility] 2022-07-29 00:00:00 2022-07-29 00:00:00 Outpatient FOG_Mathews _Vasil_MD AOSM AOSM [id number] [facility] 2022-07-19 00:00:00 2022-07-19 00:00:00 Outpatient FOG_Mathews _Vasil_MD AOSM AOSM [id number] [facility] 2022-07-19 00:00:00 2022-07-19 00:00:00 Outpatient FOG_Mathews _Vasil_MD AOSM AOSM [id number] [facility] 2022-07-11 00:00:00 2022-07-11 00:00:00 Outpatient FOG_Mathews _Vasil_MD AOSM AOSM [id number] [facility] 2022-06-16 00:00:00 2022-06-16 00:00:00 Outpatient FOG_Mathews _Vasil_MD AOSM AOSM [id number] [facility] 2022-06-14 00:00:00 2022-06-14 00:00:00 Fabricio Cartagena MD: [address] [place] [address] , Ph. [phone] [facility] [place] - [facility] [place] [facility] [id number] [facility] 2022-06-10 00:00:00 2022-06-10 00:00:00 Outpatient FOG_Mathews _Vasil_MD AOSM AO [id number] [facility] 2022-06-10 00:00:00 2022-06-10 00:00:00 Outpatient FOG_Mathews _Vasil_MD AOSM AOSM [id number] [facility] 2022-06-10 00:00:00 2022-06-10 00:00:00 Outpatient FOG_Mathews _Vasil_MD AOSM AOSM [id number] [facility] 2022-05-30 00:00:00 2022-05-30 00:00:00 Outpatient FOG_Mathews _Vasil_MD AOSM AOSM [id number] [facility] 2022-05-12 00:00:00 2022-05-12 00:00:00 Outpatient FOG_Mathews _Vasil_MD AOSM AO [id number] [facility] 2022-05-08 00:00:00 2022-05-08 00:00:00 Outpatient FOG_Mathews _Vasil_MD AOSM AO [id number] [facility] 2022-05-08 00:00:00 2022-05-08 00:00:00 Outpatient FOG_Mathews _Vasil_MD AOSM AO [id number] [facility] 2022-05-03 00:00:00 2022-05-03 00:00:00 Outpatient FOG_Mathews _Vasil_MD AOSM AOSM [id number] [facility] 2022-05-02 00:00:00 2022-05-02 00:00:00 Outpatient FOG_Mathews _Vasil_MD AOSM AOSM [id number] [facility] 2022-04-28 00:00:00 2022-04-28 00:00:00 Vineet Weeks MD: [address] [place] [address] , Ph. [phone] [facility] [place] [facility] [place] [facility] FOG_[facility] [address] [id number] [facility] 2022-04-19 00:00:00 2022-04-19 00:00:00 Outpatient FOG_Mathews _Vasbrett_ AOSM AO [id number] [facility] 2022-04-19 00:00:00 2022-04-19 00:00:00 Outpatient FOG_Mathews _Vasil_MD AOSM AO [id number] [facility] 2022-04-19 00:00:00 2022-04-19 00:00:00 Outpatient FOG_Mathews _Vasil_ AOSM AOSM [id number] [facility] 2022-04-19 00:00:00 2022-04-19 00:00:00 Outpatient FOG_Mathdanilo _Maryil_ AOSM AO [id number] [facility] 2022-04-11 10:00:00 2022-04-11 10:00:00 Outpatient Evaristo NGUYENABNERVALERIA [facility] [id number] [facility] 2022-03-15 00:00:00 2022-03-15 00:00:00 Outpatient FOG_Mathdanilo _Maryil_ AOSM AO [id number] [facility] 2022-03-15 00:00:00 2022-03-15 00:00:00 Fabricio Cartagena MD: [address] [place] [address] , Ph. [phone] [facility] [place] [facility] [place] [facility] F[facility] [id number] [facility] 2022-03-06 00:00:00 2022-03-06 00:00:00 Outpatient FOG_Mathdanilo _Vasil_ AOSM AO [id number] [facility] 2022-03-06 00:00:00 2022-03-06 00:00:00 Outpatient FOG_Mathews _Vasil_ AOSM AO [id number] [facility] 2022-03-06 00:00:00 2022-03-06 00:00:00 Outpatient FOG_Mathews _Vasil_MD AOSM AO [id number] [facility] 2022-02-17 00:00:00 2022-02-17 00:00:00 Outpatient FOG_Mathews _Vasil_MD AOSM AO [id number] [facility] 2022-02-15 00:00:00 2022-02-15 00:00:00 Outpatient FOG_Mathews _Vasil_ AOSM AO [id number] [facility] 2022-02-15 00:00:00 2022-02-15 00:00:00 Fabricio Cartagena MD: [address] [place] [address] , Ph. [phone] [facility] [place] [facility] [id number] [facility] 2022-02-07 00:00:00 2022-02-07 00:00:00 Outpatient FOG_Mathews _Vasil_ AOSM AO [id number] [facility] 2022-02-06 00:00:00 2022-02-06 00:00:00 Outpatient FOG_Mathews _Vasil_MD AOSM AO [id number] [facility] 2022-01-31 00:00:00 2022-01-31 00:00:00 Outpatient FOG_Mathews _Vasil_MD AOSM AO [id number] [facility] 2022-01-26 00:00:00 2022-01-26 00:00:00 Outpatient FOG_Mathews _Vasil_MD AOSM AO [id number] [facility] 2022-01-19 08:01:00 2022-01-24 18:53:00 Inpatient Fabricio Cardoza [facility] [id number] [id number] 2022-01-24 00:00:00 2022-01-24 00:00:00 Outpatient F[facility]iel [facility] [id number] [facility] 2022-01-23 00:00:00 2022-01-23 00:00:00 Outpatient FOG_Osiel De La Vega AO AO [id number] [facility] 2022-01-19 00:00:00 2022-01-19 00:00:00 Fabricio Cartagena MD: [address] [place] [address] , Ph. [phone] [place] - [facility] [place] [facility] F[facility]_Surgery [id number] [facility] 2021-12-29 13:00:00 2021-12-29 16:09:11 [facility] [id number] [facility] 2021-12-29 13:00:00 2021-12-29 13:20:00 [facility]..840.114 [id number] [id number] [facility] 2021-12-29 00:00:00 2021-12-29 00:00:00 Orders Only Doctor Unassigned, [place] [facility] 1.2.840.114 350.1.13.10 4.2.7.2.686 [id number] [facility] 2021-12-22 00:00:00 2021-12-22 00:00:00 Outpatient [facility] [place] [id number] [facility] 2021-12-16 00:00:00 2021-12-16 00:00:00 Outpatient [facility] [place] [id number] [facility] 2021-12-15 00:00:00 2021-12-15 00:00:00 [facility] 1.2.840.114 350.1.13.10 4.2.7.2.686 [id number] [facility] 2021-12-14 00:00:00 2021-12-14 00:00:00 [facility] 1.2.840.114 350.1.13.10 4.2.7.2.686 [id number] [facility] 2021-12-14 00:00:00 2021-12-14 00:00:00 Orders Only Doctor Unassigned, [place] [facility] 1.2.840.114 350.1.13.10 4.2.7.2.686 [id number] [facility] 2021-12-13 00:00:00 2021-12-13 00:00:00 Telephone [facility] 1.2.840.114 350.1.13.10 4.2.7.2.686 [id number] [facility] 2021-12-08 09:33:57 2021-12-08 23:59:00 [facility] [id number] [facility] 2021-12-08 00:00:00 2021-12-08 00:00:00 Orders Only Doctor Unassigned, [place] [facility] 1.2.840.114 350.1.13.10 4.2.7.2.686 [id number] [facility] 2021-12-02 16:09:00 2021-12-02 16:09:00 Outpatient Fabricio Cardoza [facility] LAB [id number] [address] [place] [address] 2021-12-02 16:09:00 2021-12-02 16:09:00 Outpatient Fabricio Cartagena HCACL LABO [id number] [facility] 2021-12-02 10:27:00 2021-12-02 10:27:00 Outpatient Fabricio Cardoza HCATO RADI [id number] [facility] 2021-12-02 10:27:00 2021-12-02 10:27:00 Outpatient Fabricio Cardoza HCATO RADI [id number] [facility] 2021-11-25 00:00:00 2021-11-25 00:00:00 Telephone [facility]en [facility] [address]840.114 350.1.13.10 4.2.7.2.686 [id number] [facility] 2021-11-25 00:00:00 2021-11-25 00:00:00 Orders Only Doctor Unassigned, [place] [address].840.114 350.1.13.10 4.2.7.2.686 [id number] [id number] [facility] 2021-11-24 00:00:00 2021-11-24 00:00:00 Outpatient [place]_Osile De La Vega AOSM AOSM [id number] [facility] 2021-11-21 16:22:00 2021-11-21 16:22:00 Outpatient Fabricio Cardoza HCACL LABO [id number] [facility] 2021-11-21 09:00:00 2021-11-21 09:01:00 Outpatient Fabricio Cardoza HCATO 3DAY [id number] [facility] 2021-11-11 00:00:00 2021-11-11 00:00:00 Outpatient [place]_Osiel De La Vega AOSM AOSM [id number] [facility] 2021-11-02 00:00:00 2021-11-02 00:00:00 Outpatient FOG_Osiel _Libby_ AOSM AO [id number] [facility] 2021-11-02 00:00:00 2021-11-02 00:00:00 Fabricio Cartagena MD: [id number] [place] [address] , Ph. [phone] [facility] [place] [facility] [place] [facility] [id number] [facility] 2021-11-02 00:00:00 2021-11-02 00:00:00 Outpatient Fabricio Cartagena AOSM AO [id number] 2021-10-20 11:00:00 2021-10-20 11:20:08 Outpatient R FAHEEM [facility] [id number] [facility] 2021-10-20 11:00:00 2021-10-20 11:20:00 [facility] 1.2.840.114 350.1.13.10 4.2.7.2.686 [id number] [facility] 2021-09-28 00:00:00 2021-09-28 00:00:00 Outpatient FOG_Osiel De La Vega AOSM AO [id number] [facility] 2021-09-21 00:00:00 2021-09-21 00:00:00 Telephone [facility]en [facility] 1.2.840.114 350.1.13.10 4.2.7.2.686 [id number] [facility] 2021-09-06 00:00:00 2021-09-06 00:00:00 OFFICE VISIT ESTAB PT LEVEL 4 STLMLC STLMLC [id number] [facility] 2021-07-13 00:00:00 2021-07-13 00:00:00 (TEL) STLMLC STLMLC [id number] [facility] 2021-07-07 00:00:00 2021-07-07 00:00:00 Postop visit STLMLC STLMLC [id number] [facility] 2021-07-04 00:00:00 2021-07-04 00:00:00 (TEL) STLMLC STLMLC [id number] [facility] 2021-06-23 00:00:00 2021-06-23 00:00:00 (TEL) STLMLC STLMLC [id number] [facility] 2021-06-08 09:00:00 2021-06-08 09:00:00 [facility] [id number] [facility] 2021-06-07 10:00:00 2021-06-07 10:00:00 Out[facility] [id number] [facility] 2021-06-07 10:00:00 2021-06-07 10:00:00 [facility] [id number] [facility] 2021-06-07 00:00:00 2021-06-07 00:00:00 NON-BILLAB LE VISIT STLMLC STLMLC [id number] [facility] 2021-06-06 10:00:00 2021-06-06 10:00:00 Outpatient R [facility] [id number] [facility] 2021-05-09 09:40:00 2021-05-09 10:48:25 Outpatient R MARICARMEN NGUYEN [facility] [id number] [facility] 2021-05-09 09:40:00 2021-05-09 10:48:25 [facility] 1.2.840.114 350.1.13.10 4.2.7.2.686 [id number] [facility] 2021-05-09 09:40:00 2021-05-09 10:48:25 Outpatient R MARICARMEN NGUYEN [facility] [id number] [facility] 2021-05-09 09:40:00 2021-05-09 10:48:25 Outpatient R MARICARMEN NGUYEN [facility] [id number] [facility] 2021-05-09 00:00:00 2021-05-09 00:00:00 Orders Only Doctor Unassigned, [place] [facility] ..840.114 350.1.13.10 4.2.7.2.686 [id number] [id number] [facility] 2021-04-11 08:06:01 2021-04-11 23:59:00 Outpatient R SHANNAN ROY [facility] [id number] [facility] 2021-04-11 08:00:00 2021-04-11 23:59:00 [facility].114 350.1.13.10 4.2.7.2.686 [id number] [facility] 2021-04-04 00:00:00 2021-04-04 00:00:00 Outpatient R SHANNAN ROY [facility] [id number] [facility] 2021-03-29 11:00:00 2021-03-29 11:00:00 Outpatient R MARCK HANNA OGECHUKWU [facility] [id number] [facility] 2021-03-25 11:00:00 2021-03-25 11:50:59 Outpatient R SHANNAN ROY [facility] [id number] [facility] 2021-03-25 11:00:00 2021-03-25 11:50:59 Office Visit [facility] 1..840.114 350.1.13.10 4.2.7.2.686 [id number] [facility] 2021-03-25 11:00:00 2021-03-25 11:50:59 Outpatient R SHANNAN ROY [facility] [id number] [facility] 2021-03-25 00:00:00 2021-03-25 00:00:00 Orders Only Doctor Unassigned, [place] [facility] 1.2840.114 350.1.13.10 4.2.7.2.686 [id number] [facility] 2021-03-21 07:45:00 2021-03-21 08:00:00 Ad Operations Coordinator Visit Pob, Adc Lab Main [facility] 1.2.840.114 350.1.13.10 4.2.7.2.686 [id number] [facility] 2021-03-21 07:45:00 2021-03-21 07:45:00 [facility] [id number] [facility] 2021-02-18 10:00:00 2021-02-18 10:00:00 Outpatient R [facility] [id number] [facility] 2021-02-17 00:00:00 2021-02-17 00:00:00 Telephone Shannan Roy [facility] 1.2.840.114 350.1.13.10 4.2.7.2.686 [id number] [facility] 2021-02-14 00:00:00 2021-02-14 00:00:00 Orders Only Doctor Unassigned, [place] [facility] 1.2840.114 350.1.13.10 4.2.7.2.686 [id number] [id number] [facility] 2021-02-08 00:00:00 2021-02-08 00:00:00 Telephone Kirill, Shannan [facility] PROFESSIO NAL BUILDING 1.2.840.114 350.1.13.10 4.2.7.2.686 [id number] [facility] 2021-01-10 00:00:00 2021-01-10 00:00:00 Case Management Shannan Roy [facility] MEDICAL OFFICE BUILDING 1.2.840.114 350.1.13.10 4.2.7.2.686 [id number] [facility] 2021-01-07 10:00:00 2021-01-07 10:27:04 Outpatient R SHANNAN ROY [facility] [id number] [facility] 2021-01-07 09:56:23 2021-01-07 10:27:04 Office Visit Shannan Roy [facility] NAL BUILDING 1.2.840.114 350.1.13.10 4.2.7.2.686 [id number] [facility] 2021-01-07 10:00:00 2021-01-07 10:00:00 Outpatient R SHANNAN ROY [facility] [id number] [facility] 2021-01-03 00:00:00 2021-01-03 00:00:00 Telephone Shannan Roy [facility] Medical Office Building 1.2.840.114 350.1.13.10 4.2.7.2.686 [id number] [facility] 2021-01-03 00:00:00 2021-01-03 00:00:00 Telephone Shannan Roy [facility] 1.2.840.114 350.1.13.10 4.2.7.2.686 [id number] [facility] 2020-12-30 08:40:00 2020-12-30 23:59:00 Hospital Encounter Radiology [facility] 1.2.840.114 350.1.13.10 4.2.7.2.686 [id number] [facility] 2020-12-30 10:30:00 2020-12-30 10:30:00 Outpatient R ERICA CABA SHILAIndy [facility] [id number] [facility] 2020-12-30 08:59:10 2020-12-30 09:14:10 Ad Operations Coordinator Visit Pob, Adc Lab Main [facility] Building 1.2840.114 350.1.13.10 4.2.7.2.686 [id number] [facility] 2020-12-28 09:58:42 2020-12-28 23:59:00 Hospital Encounter Radiology [facility] 1.84.114 350.1.13.10 4.2.7.2.686 [id number] [facility] 2020-12-28 00:00:00 2020-12-28 00:00:00 Outpatient R RADIOLOGY [facility] [id number] [facility] 2020-12-28 00:00:00 2020-12-28 00:00:00 Orders Only Doctor Unassigned, [place] [facility] 1.284.114 350.1.13.10 4.2.7.2.686 [id number] [facility] 2020-11-12 09:30:00 2020-11-12 09:30:00 Outpatient R SHANNAN ROY [facility] [id number] [facility] 2020-11-12 00:00:00 2020-11-12 00:00:00 Telephone Erica Caba [facility] Building 1.2.840.114 350.1.13.10 4.2.7.2.686 [id number] [facility] 2020-11-08 07:50:52 2020-11-08 23:59:00 Hospital Encounter Erica Caba [facility] 1.2.840.114 350.1.13.10 4.2.7.2.686 [id number] [facility] 2020-11-08 09:00:00 2020-11-08 09:00:00 Outpatient R NUSRAT ROYHA [facility] [id number] [facility] 2020-11-08 00:00:00 2020-11-08 00:00:00 Outpatient R CABA RONN TSELAIndy [facility] [id number] [facility] 2020-11-05 13:00:00 2020-11-05 13:00:00 Outpatient Evaristo KIRILLNUSRATHA [facility] [id number] [facility] 2020-10-29 13:48:11 2020-10-29 14:15:23 Office Visit Gertrudis Erica [facility] 1.2.840.114 350.1.13.10 4.2.7.2.686 [id number] [facility] 2020-10-29 14:00:00 2020-10-29 14:00:00 Outpatient R GERTRUDIS ERICA TSE [facility] [id number] [facility] 2020-10-11 10:00:00 2020-10-11 10:00:00 Outpatient R KIRILLNUSRATHA [facility] [id number] [facility] 2020-10-07 00:00:00 2020-10-07 00:00:00 Telephone Sana Gao [facility] 1.2.840.114 350.1.13.10 4.2.7.2.686 [id number] [facility] 2020-10-05 11:30:00 2020-10-05 11:30:00 Outpatient R SANA GAO [facility] [id number] [facility] 2020-10-05 11:14:57 2020-10-05 11:29:57 Ad Operations Coordinator Visit Pob, Adc Lab Main Sana Gao [facility] 1.2840.114 350.1.13.10 4.2.7.2.686 [id number] [facility] 2020-10-05 00:00:00 2020-10-05 00:00:00 Orders Only Doctor Unassigned, [place] [facility] 1.2.114 350.1.13.10 4.2.7.2.686 [id number] [facility] 2020-09-30 09:00:00 2020-09-30 09:00:00 Outpatient ERICA LOVE SHIWAN [facility] [id number] [facility] 2020-09-17 00:00:00 2020-09-17 00:00:00 Telephone Sana Gao [facility] 1.2840.114 350.1.13.10 4.2.7.2.686 [id number] [facility] 2020-09-16 00:00:00 2020-09-16 00:00:00 Telephone Sana Gao [facility] 1.2840.114 350.1.13.10 4.2.7.2.686 [id number] [facility] 2020-08-16 00:00:00 2020-08-16 00:00:00 Telephone Johanny Kaplan [facility] 1.284.114 350.1.13.10 4.2.7.2.686 [id number] [facility] 2020-08-12 10:23:08 2020-08-12 23:59:00 Hospital Encounter Radiology [facility] 1.20.114 350.1.13.10 4.2.7.2.686 [id number] [facility] 2020-08-12 10:25:23 2020-08-12 10:40:23 Ad Operations Coordinator Visit Pob, Adc Lab Main Johanny Kaplan [facility] Professio nal Building 1.2.840.114 350.1.13.10 4.2.7.2.686 [id number] [facility] 2020-08-12 00:00:00 2020-08-12 00:00:00 Outpatient R RADIOLOGY [facility] [id number] [facility] 2020-08-12 00:00:00 2020-08-12 00:00:00 Orders Only Doctor Unassigned, [place] [facility] 1.2.840.114 350.1.13.10 4.2.7.2.686 [id number] [facility] 2020-08-11 00:00:00 2020-08-11 00:00:00 Telephone Sana Gao [facility] Building 1.2.840.114 350.1.13.10 4.2.7.2.686 [id number] [facility] 2020-07-26 13:20:00 2020-07-26 13:20:00 Outpatient R GRACY MCKEON [facility] [id number] [facility] 2020-07-20 10:00:00 2020-07-20 10:00:00 Outpatient R JOHANNY KAPLAN [facility] [id number] [facility] 2020-07-12 00:00:00 2020-07-12 00:00:00 Telephone Sana Gao [facility] Building 1.2.840.114 350.1.13.10 4.2.7.2.686 [id number] [facility] 2020-07-08 10:28:55 2020-07-08 10:43:55 Ad Operations Coordinator Visit Pob, Adc Lab Main Tri Chin [facility] Building 1.2840.114 350.1.13.10 4.2.7.2.686 [id number] [facility] 2020-07-08 10:30:00 2020-07-08 10:30:00 Outpatient TRI DURAND [facility] [id number] [facility] 2020-07-08 00:00:00 2020-07-08 00:00:00 Telephone Sana Gao [facility] Building 1.2.114 350.1.13.10 4.2.7.2.686 [id number] [facility] 2020-07-08 00:00:00 2020-07-08 00:00:00 Orders Only Doctor Unassigned, [place] [facility] 1.20.114 350.1.13.10 4.2.7.2.686 [id number] [facility] 2020-07-06 09:48:07 2020-07-06 10:54:20 Office Visit Johanny Kaplan [facility] 1.20.114 350.1.13.10 4.2.7.2.686 [id number] [facility] 2020-07-06 09:45:00 2020-07-06 09:45:00 Outpatient RALPH [facility] [id number] [facility] 2020-06-30 16:54:53 2020-06-30 17:09:53 Ad Operations Coordinator Visit Pob, Adc Lab Main Sana Gao [facility] Building 1.2.114 350.1.13.10 4.2.7.2.686 [id number] [facility] 2020-06-30 17:00:00 2020-06-30 17:00:00 Outpatient R MURRAYVINAYSANA [facility] [id number] [facility] 2020-06-30 00:00:00 2020-06-30 00:00:00 Orders Only Doctor Unassigned, [place] [facility] 1.2.840.114 350.1.13.10 4.2.7.2.686 [id number] [facility] 2020-06-28 00:00:00 2020-06-28 00:00:00 Telephone MurraySana [facility] 1.2.840.114 350.1.13.10 4.2.7.2.686 [id number] [facility] 2020-06-21 10:25:21 2020-06-21 23:59:00 Hospital Encounter Radiology [facility] 1.2840.114 350.1.13.10 4.2.7.2.686 [id number] [facility] 2020-06-21 00:00:00 2020-06-21 00:00:00 Outpatient R RADIOLOGY [facility] [id number] [facility] 2020-06-04 00:00:00 2020-06-04 00:00:00 Case Management MurraySana [facility] 1.2.840.114 350.1.13.10 4.2.7.2.686 [id number] [facility] 2020-06-03 16:10:40 2020-06-03 23:59:00 Hospital Encounter MurraySana [facility] 1.2.840.114 350.1.13.10 4.2.7.2.686 [id number] [facility] 2020-06-03 14:28:14 2020-06-03 16:02:32 Nurse Visit Nurse, [facility] Surgery GrammSana [facility] Building 1.84.114 350.1.13.10 4.2.7.2.686 [id number] [facility] 2020-06-03 14:30:00 2020-06-03 14:30:00 Outpatient R [facility] [id number] [facility] 2020-06-03 00:00:00 2020-06-03 00:00:00 Orders Only Doctor Unassigned, [place] [facility] 1..114 350.1.13.10 4.2.7.2.686 [id number] [facility] 2020-06-02 12:51:03 2020-06-02 13:06:03 Ad Operations Coordinator Visit Pob, Adc Lab Main Sana Gao [facility] 1.84.114 350.1.13.10 4.2.7.2.686 [id number] [facility] 2020-06-02 13:00:00 2020-06-02 13:00:00 Outpatient R SANA GAO [facility] [id number] [facility] 2020-06-01 00:00:00 2020-06-01 00:00:00 Patient Outreach Paul Brand [facility] 1.84.114 350.1.13.10 4.2.7.2.686 [id number] [facility] 2020-05-17 00:00:00 2020-05-17 00:00:00 Outpatient STLMLC STLMLC [id number] [facility] 2020-05-11 10:39:02 2020-05-11 11:23:09 Office Visit Sana Gao [facility] 1.84.114 350.1.13.10 4.2.7.2.686 [id number] [facility] 2020-05-11 10:45:00 2020-05-11 10:45:00 Outpatient R MURRAYSANA [facility] [id number] [facility] 2020-04-27 10:30:00 2020-04-27 10:30:00 Outpatient Evaristo SANA GAO [facility] [id number] [facility] 2020-04-22 09:35:00 2020-04-22 10:45:00 Emergency Osito Rodriguez [facility] 1.2840.114 350.1.13.10 4.2.7.2.686 [id number] [facility] 2020-04-13 00:00:00 2020-04-13 00:00:00 Telephone RafGeovany [facility] Medical Office Building 1.2.840.114 350.1.13.10 4.2.7.2.686 [id number] [facility] 2020-04-08 18:57:00 2020-04-08 21:59:00 Emergency Oscar Hill [facility] 1.2840.114 350.1.13.10 4.2.7.2.686 [id number] [facility] 2020-04-07 00:00:00 2020-04-07 00:00:00 Telephone Kendra Oden [facility] Medical Office Building 1.2.840.114 350.1.13.10 4.2.7.2.686 [id number] [facility] 2020-04-05 10:00:00 2020-04-05 10:00:00 Outpatient GEOVANY FERNANDEZ [facility] [id number] [facility] 2020-04-05 09:08:27 2020-04-05 09:23:27 Ad Operations Coordinator Visit Pob, Adc Lab Main RafGeovany [facility] Professio nal Building 1.2.840.114 350.1.13.10 4.2.7.2.686 [id number] [facility] 2020-04-05 00:00:00 2020-04-05 00:00:00 Outpatient STLMLC STLMLC [id number] [facility] 2020-04-05 00:00:00 2020-04-05 00:00:00 Orders Only Doctor Unassigned, [place] [facility] 1.2.840.114 350.1.13.10 4.2.7.2.686 [id number] [facility] 2020-04-02 00:00:00 2020-04-02 00:00:00 Telephone Jn Odenkhan [facility] Medical Office Building 1.2.840.114 350.1.13.10 4.2.7.2.686 [id number] [facility] 2020-04-02 00:00:00 2020-04-02 00:00:00 Telephone Geovany Carbone [facility] Medical Office Building 1.2.840.114 350.1.13.10 4.2.7.2.686 [id number] [facility] 2020-03-22 00:00:00 2020-03-22 00:00:00 Outpatient STLMLC STLMLC [id number] [facility] 2020-03-10 00:00:00 2020-03-10 00:00:00 Outpatient STLMLC STLMLC [id number] [facility] 2020-02-24 10:30:00 2020-02-24 10:30:00 Outpatient ELIEL BRITO [facility] [id number] [facility] 2020-02-10 00:00:00 2020-02-10 00:00:00 Outpatient STLMLC STLMLC [id number] [facility] 2020-01-12 00:00:00 2020-01-12 00:00:00 Outpatient STLMLC STLMLC [id number] [facility] 2019-11-28 00:00:00 2019-11-28 00:00:00 Telephone Jn Odenkhan [facility] 1.2840.114 350.1.13.10 4.2.7.2.686 [id number] [facility] 2019-11-25 13:17:08 2019-11-25 14:58:15 Office Visit Jn Odenkhan [facility] 1.2840.114 350.1.13.10 4.2.7.2.686 [id number] [facility] 2019-11-25 13:30:00 2019-11-25 13:30:00 Outpatient R KENDRA ODEN [facility] [id number] [facility] 2019-11-25 00:00:00 2019-11-25 00:00:00 Orders Only Doctor Unassigned, [place] [facility] 1..840.114 350.1.13.10 4.2.7.2.686 [id number] [facility] 2019-11-18 09:30:00 2019-11-18 09:30:00 Outpatient R KENDRA ODEN [facility] [id number] [facility] 2019-10-13 10:00:00 2019-10-13 10:00:00 Outpatient [facility] [id number] [facility] 2018-11-29 00:00:00 2018-11-29 00:00:00 Telephone [facility] 1.2.840.114 350.1.13.10 4.2.7.2.686 [id number] [facility] 2018-11-29 00:00:00 2018-11-29 00:00:00 Telephone Sana Gao [facility] [id number] 350.1.13.10 4.2.7.2.686 [id number] 2018-10-24 15:15:31 2018-10-24 15:41:04 Office Visit Erica Caba [facility] 1.2.840.114 350.1.13.10 4.2.7.2.686 [id number] 2018-10-24 15:15:31 2018-10-24 15:41:04 Office Visit Erica Caba [facility] 1.2.840.114 350.1.13.10 4.2.7.2.686 [id number] [facility] 2018-10-16 00:00:00 2018-10-16 00:00:00 Orders Only Doctor Unassigned, [place] [facility] 1.2.840.114 350.1.13.10 4.2.7.2.686 [id number] [facility] Results Test Description Test Time Test Comments Results Result Co mments Source CBC W/AUTO [id number] 05:41:00* Test Item Value Reference Range Interpretation [...] N CBC W Auto Differential panel - [id number] 04:00:00* Test Item Value Reference Range Interpretation [...] performing lab: (test code = performing lab:) [facility] metabolic [id number] 04:00:00* Test Item Value Reference Range Interpretation [...] performing lab: (test code = performing lab:) [facility] W Auto Differential panel - [id number] 04:00:00* Test Item Value Reference Range Interpretation [...] performing lab: [facility]test [facility] [id number] 04:00:00* Test Item Value Reference Range Interpretation [...] performing lab: (test code = performing lab:) [facility] W Auto Differential panel - [id number] 04:00:00* Test Item Value Reference Range Interpretation [...] performing [id number]* Test Item Value Reference Range Interpretation [...] performing lab: (test code = performing lab:) [facility] [id number] 20:33:00* Test Item Value Reference Range Interpretation [...] AB HIV 1 2 (test code = [id number]) NONREACTIVE NONREACTIVE Done by [employer] HIV Ag/Ab Combo Screen C REACTIVE [id number] 20:33:00* Test Item Value Reference Range Interpretation Comme nts C REACTIVE PROTEIN (test cod e = CRP) 0.43 mg/dL < 0.3 H ACUTE HEPATITIS [id number] 20:33:00* Test Item Value Reference Range Interpretation [...] code = HIV1AB) NONREACTIVE NONREACTIVE DONE AT: [address] [id number] by [employer] HIV Ag/Ab Combo Screen SED DNBJ2161-31-72 14:01:00* Test Item Value Reference Range Interpretation Comme nts SED RATE (test code = SEDW) 25 mm/hr 0-30 N COMPREHENSIVE METABOLIC RWTTW4708-74-93 13:30:00* Test Item Value Reference Range Interpretation [...] = ALKP) 128 U/L 46-116 H PROTHROMBIN LJTX7183-63-01 13:15:00* Test Item Value Reference Range Interpretation [...] intravascular valves IS PATIENT ON ANTICOAGULANTS ? [facility] been notified if Patient is on Heparin Drip? NOTHROMBOPLASTIN TIME FQRKNGC0239-65-26 13:15:00* Test Item Value Reference Range Interpretation Comme nts PTT ACTIVATED (test code = APTT) 30.9 secs 25.1-36.5 N IS PATIENT ON ANTICOAGULANTS ? [facility] been notified if Patient is on Heparin Drip? NOCBC W/AUTO ZHVA5959-84-60 13:01:00* Test Item Value Reference Range Interpretation [...] N CBC W Auto Differential panel - Srnfv5338-50-19 11:58:00* Test Item Value Reference Range Interpretation [...] performing lab: (test code = performing lab:) [facility] MedicineProthrombin time (PT)2023-04-04 11:58:00* Test Item Value Reference Range Interpretation Comme nts prothrombin time patient (te st code = prothrombin time patient) 12.3 secs 9.4-12.5 international normal ratio ( test code = international normal ratio) 1.10 <2.0 performing lab: (test code = performing lab:) [facility] Medicinethromboplastin time eacfhio4554-49-48 11:58:00 * Test Item Value Reference Range Interpretation Comme nts PTT activated (test code = P TT activated) 30.9 secs 25.1-36.5 performing lab: (test code = performing lab:) [facility] 2000 [facility] - Serum or Dwsgye9154-55-62 11:58:00* Test Item Value Reference Range Interpretation [...] performing lab: (test code = performing lab:) [facility] rmqp6946-67-74 11:58:00* Test Item Value Reference Range Interpretation Comme nts sed rate (test code = sed rate) 25 mm/HR 0-30 performing lab: (test code = performing lab:) [facility]CBC W Auto Differential panel - Zpykb1974-27-60 11:58:00* Test Item Value Reference Range Interpretation [...] lab: (test code = performing lab:) [facility] MedicineProthrombin time (PT)2023-04-04 11:58:00* Test Item Value Reference Range Interpretation Comme nts prothrombin time patient (te st code = prothrombin time patient) 12.3 secs 9.4-12.5 international normal ratio ( test code = international normal ratio) 1.10 <2.0 performing lab: (test code = performing lab:) [facility] axtldnj2490-46-23 11:58:00 * Test Item Value Reference Range Interpretation Comme nts PTT activated (test code = P TT activated) 30.9 secs 25.1-36.5 performing lab: (test code = performing lab:) [facility] 2000 panel - Serum or Itezxm5073-95-88 11:58:00* Test Item Value Reference Range Interpretation [...] performing lab: (test code = performing lab:) [facility] noky8197-51-62 11:58:00* Test Item Value Reference Range Interpretation Comme nts sed rate (test code = sed rate) 25 mm/HR 0-30 performing lab: (test code = performing lab:) [facility] reactive klifgfj9339-31-45 11:58:00* Test Item Value Reference Range Interpretation Comme nts C reactive protein (test cod e = C reactive protein) 0.43 mg/dL < 0.3 H performing lab: (test code = performing lab:) [facility] mqopz8549-56-81 11:58:00* Test Item Value Reference Range Interpretation [...] performing lab: (test code = performing lab:) [facility] HIV 11:58:00* Test Item Value Reference Range Interpretation Comme nts Ab HIV 1 (test code = Ab HIV 1) nonreactive nonreactive performing lab: (test code = performing lab:) [facility] W Auto Differential panel - Weiul5734-00-02 11:58:00* Test Item Value Reference Range Interpretation [...] performing lab: (test code = performing lab:) [facility] (PT)2023-04-04 11:58:00* Test Item Value Reference Range Interpretation Comme nts prothrombin time patient (te st code = prothrombin time patient) 12.3 secs 9.4-12.5 international normal ratio ( test code = international normal ratio) 1.10 <2.0 performing lab: (test code = performing lab:) [facility] ntruwie1972-78-28 11:58:00 * Test Item Value Reference Range Interpretation Comme nts PTT activated (test code = P TT activated) 30.9 secs 25.1-36.5 performing lab: (test code = performing lab:) [facility] 2000 panel - Serum or Ejlkye2649-54-00 11:58:00* Test Item Value Reference Range Interpretation [...] performing lab: (test code = performing lab:) [facility] Medicinesed ucdp7569-88-47 11:58:00* Test Item Value Reference Range Interpretation Comme nts sed rate (test code = sed rate) 25 mm/HR 0-30 performing lab: (test code = performing lab:) [facility] reactive idvyjxg1128-92-39 11:58:00* Test Item Value Reference Range Interpretation Comme nts C reactive protein (test cod e = C reactive protein) 0.43 mg/dL < 0.3 H performing lab: (test code = performing lab:) [facility] pqwmx1656-96-24 11:58:00* Test Item Value Reference Range Interpretation [...] performing lab: (test code = performing lab:) [facility] HIV 82959-27-77 11:58:00* Test Item Value Reference Range Interpretation Comme nts Ab HIV 1 (test code = Ab HIV 1) nonreactive nonreactive performing lab: (test code = performing lab:) [facility] Auto Differential panel - Yrpgs4848-61-25 11:58:00* Test Item Value Reference Range Interpretation [...] performing lab: (test code = performing lab:) [facility] (PT)2023-04-04 11:58:00* Test Item Value Reference Range Interpretation Comme nts prothrombin time patient (te st code = prothrombin time patient) 12.3 secs 9.4-12.5 international normal ratio ( test code = international normal ratio) 1.10 <2.0 performing lab: (test code = performing lab:) [facility] afbzseq4257-06-28 11:58:00 * Test Item Value Reference Range Interpretation Comme nts PTT activated (test code = P TT activated) 30.9 secs 25.1-36.5 performing lab: (test code = performing lab:) [facility] 2000 panel - Serum or Iaanwo0776-04-80 11:58:00* Test Item Value Reference Range Interpretation [...] performing lab: (test code = performing lab:) [facility] Medicinesed czuf4425-77-72 11:58:00* Test Item Value Reference Range Interpretation Comme nts sed rate (test code = sed rate) 25 mm/HR 0-30 performing lab: (test code = performing lab:) [facility] reactive cetmbug8058-62-68 11:58:00* Test Item Value Reference Range Interpretation Comme nts C reactive protein (test cod e = C reactive protein) 0.43 mg/dL < 0.3 H performing lab: (test code = performing lab:) [facility] ivzub1289-92-99 11:58:00* Test Item Value Reference Range Interpretation [...] performing lab: (test code = performing lab:) [facility] HIV 11:58:00* Test Item Value Reference Range Interpretation Comme nts Ab HIV 1 (test code = Ab HIV 1) nonreactive nonreactive performing lab: (test code = performing lab:) [facility] PELVIS 1/2 QLHQV4393-36-62 10:13:00 [facility] 1955 Sex: F Patient Name: VALENTINO DALAL Unit No: [id number] EXAMS: CPT CODE: [id number] XR PELVIS 1/2VIEWS 95336 AP VIEW OF THE PELVIS. COMMENT: In [...] Technologist: Charles Munoz(R) Transcribed D/ (1013) Celestine [facility] NAME: VALENTINO GUEVARA [address] [facility] PHYS: MATVA.01 - Fabricio Cartagena : 1955 AGE: 66 SEX: [place], [place] [address] LOC: Y.507 A PHONE #: [phone] EXAM DATE: 01/20/2022 STATUS: ADM IN FAX #: [phone] RAD #: D/C DT PAGE 1 Signed Report Patient Name: VALENTINO DALAL Unit No: [id number] EXAMS: CPT CODE: [id number] XR PELVIS 1/2 VIEWS 24743 (Continued) OrigPrint D/T: S: 01/24/2022 (1017) [facility] NAME: VALENTINO DALAL [address] [facility] PHYS: MATVA.01 - Fabricio Cartagena Lana : 1955 AGE: 66 SEX: F [place], [place] [address] LOC: Y.507 A PHONE #: [phone] EXAM DATE: 01/20/2022 STATUS: ADM IN FAX #: [phone] RAD #: D/C DT PAGE 2 Signed Report- XR PELVIS 1/2 ZNRYJ1279-01-59 10:13:00 [facility] 1955 Sex: F Patient Name: VALENTINO DALAL Unit No: [id number] EXAMS: CPT CODE: [id number] XR PELVIS 1/2VIEWS 20129 AP VIEW OF THE PELVIS. COMMENT: In [...] MD Technologist: Charles Munoz(R) Transcribed D/ (1013) [facility]: [facility]AL [address] [facility] PHYS: MATVA.01 - Cartagena,Fabricio Lana : 1955 AGE: 66 SEX: F [place], [place] [address] LOC: Y.507 A PHONE #: [phone] EXAM DATE: 01/19/2022 STATUS: ADM IN FAX #: [phone] RAD #: D/C DT PAGE 1 Signed Report Patient Name: VALENTINO DALAL Unit No: [id number] EXAMS: CPT CODE: [id number] XR PELVIS 1/2 VIEWS 84080 (Continued) Orig Print D/T: S: 01/24/2022 (1017) [facility] NAME: VALENTINO DALAL [address] [facility] PHYS: MATVA.01 - Fabricio Cartagena : 1955 AGE: 66 SEX: F [place], [place] [address] LOC: Y.507 A PHONE #: [phone] EXAM DATE: 01/19/2022 STATUS: ADM IN FAX #: [phone] RAD #: D/C DT PAGE 2 Signed ReportBASIC METABOLIC PMCOG1590-39-50 07:12:00* Test Item Value Reference Range Interpretation [...] = CA) 8.1 mg/dL 8.2-10.1 L HGB ZIO5382-46-15 06:43:00* Test Item Value Reference Range Interpretation Comme nts HEMOGLOBIN (test code = HGB) 9.9 g/dL 12-16 L HEMATOCRIT (test code = HCT) 29.7 % 37-47 L Hemoglobin and Hematocrit panel - Heblj9358-88-90 04:00:00* Test Item Value Reference Range Interpretation Comme nts hemoglobin (test code = hemoglobin) 9.9 g/dL 12-16 L hematocrit (test code = hematocrit) 29.7 % 37-47 L performing lab: (test code = performing lab:) [facility] metabolic vckdl8808-89-47 04:00:00* Test Item Value Reference Range Interpretation [...] performing lab: (test code = performing lab:) [facility] 2022-01-20 04:00:00* Test Item Value Reference Range Interpretation Comme nts hemoglobin (test code = hemoglobin) 9.9 g/dL 12-16 L hematocrit (test code = hematocrit) 29.7 % 37-47 L performing lab: (test code = performing lab:) [facility] dbkjl5310-06-48 04:00:00* Test Item Value Reference Range Interpretation [...] performing lab: (test code = performing lab:) [facility] 2022-01-20 04:00:00* Test Item Value Reference Range Interpretation Comme nts hemoglobin (test code = hemoglobin) 9.9 g/dL 12-16 L hematocrit (test code = hematocrit) 29.7 % 37-47 L performing lab: (test code = performing lab:) [facility] ijvhs5330-07-92 04:00:00* Test Item Value Reference Range Interpretation [...] performing lab: (test code = performing lab:) [facility]- XR FLUORO GQW7049-93-60 11:29:00 [facility] 1955 Sex: F Patient Name: VALENTINO DALAL Unit No: [id number] EXAMS: CPT CODE: [id number] XR FLUORO NDL 67695 Fluoroscopically guided right hip aspiration FINDINGS: After [...] M.D. CC: Fabricio Cartagena MD Technologist: Kallie [facility]WTH[facility]- TECH Transcribed D/ (1121) VicenteSLJ [facility] NAME: VALENTINO DLAAL [facility] PHYS: MATGODWIN.01 - Fabricio Cartagena : 1955 AGE: 66 SEX: F [place], [place] LOC: Y.RAD PHONE #: [phone] EXAM DATE: 12/02/2021 STATUS: DEP CLI FAX #: [phone] RAD #: D/C DT PAGE 1 Signed Report Patient Name: VALENTINO DALAL Unit No: [id number] EXAMS: CPT CODE: [id number] XR FLUORO NDL 55484 (Continued) Orig Print D/T: S: 12/07/2021 (1132) [facility] NAME: VALENTINO DALAL [facility] PHYS: MATGODWIN.Yvrose - Fabricio Cartagena Lana : 1955 AGE: 66 SEX: F [place], [place] [address] LOC: Y.RAD PHONE #: [phone] EXAM DATE: 12/02/2021 STATUS: DEP CLI FAX #: [phone] RAD #: D/C DT PAGE 2 Signed Report- XR FLUORO WLY0736-00-17 11:29:00 [facility] 1955 Sex: F Patient Name: VALENTINO DALAL Unit No: [id number] EXAMS: CPT CODE: [id number] XR FLUORO NDL 17942 Fluoroscopically guided right hip aspiration FINDINGS: After [...] Fluoroscopically guided right hip aspiration. at 1129 Reportedand signed by: Chong Ochoa M.D. CC: Fabricio Cartagena MD Technologist: Kallie Leonardo YYYB-TOC-ZSHO Transcribed D/ (1129) VicenteSLJ [facility] NAME: VALENTINO DALAL [address] [facility] PHYS: JACKLYN.01 - Fabricio Cartagena : 1955 AGE: 66 SEX: F [place], [place] [address] LOC: Y.RAD PHONE #: [phone] EXAM DATE: 12/02/2021 STATUS: DEP CLI FAX #: [phone] RAD #: D/C DT PAGE 1 Signed Report Patient Name: VALENTINO DALAL Unit No: [id number]: CPT CODE: [id number] XR FLUORO NDL 86225 (Continued) Orig Print D/T: S: 12/07/2021 (1132) [facility] NAME: VALENTINO DALAL [address] [facility] PHYS: JACKLYN.01 - CartagenaMartinez carrascoos Lana : 1955 AGE: 66 SEX: F [place], [place] [address] LOC: Y.RAD PHONE #: [phone] EXAM DATE: 12/02/2021 STATUS: DEP CLI FAX #: [phone] RAD #: D/C DT PAGE [address]/LWVC4807-07-08 16:31:00* Test Item Value Reference Range Interpretation Comme nts SYNOVIAL FLD COLOR (test code = COLSY) BLOODY LT. YELLOW A SYNOVIAL FLD APPEARANCE (test code = APPSY) SLIGHT HAZY CLEAR SYNOVIAL FLD VOLUME (test code = VOLSY) 1 mL SYNOVIAL FLD WBC (test code = WBCSY) 1170.000 /MM3 0-200 H SYNOVIAL FLD RBC (test code = RBCSY) 135233.000 /mm3 0-2 H NOTE: An automated method [...] % 0-0 H SPECIMEN COMMENT: ASPIRATIONCBC W/MANUAL YUVH7526-20-36 13:15:00* Test Item Value Reference Range Interpretation [...] = EOS) 10 % 1-3 H SED GBOM2839-45-23 13:15:00* Test Item Value Reference Range Interpretation Comme nts SED RATE (test code = SEDW) 30 mm/hr 0-20 H COMPREHENSIVE METABOLIC GZQJJ6697-20-60 12:49:00* Test Item Value Reference Range Interpretation [...] 46.0 >60 Unit of m easure: mL/min/1.73 a1Txtqrddjo Range:Healthy Adults >90 mL/min/1.73 m2 For Chronic [...] = ALKP) 123 U/L 46-116 H PROTHROMBIN UNGP3931-59-21 12:49:00* Test Item Value Reference Range Interpretation [...] BLOOD, PT every other day NTHROMBOPLASTIN TIME JAWVUSJ6983-55-93 12:49:00* Test Item Value Reference Range Interpretation [...] = CRP) 1.7 mg/dL <0.9 CBC W/AUTO RJMK3058-12-43 12:39:00* Test Item Value Reference Range Interpretation [...] % 0-0 N POCT URINALYSIS W SPECIFIC LRCFPHS9400-03-98 16:01:00* Test Item Value Reference Range Interpretation [...] internal controls Lab Interpretation (test code = 07249-4) Abnormal [facility] [place] Notes Date/Time Note Provider Source 2023-04-20 10:44:00 [id number] cS26/FtQi8DYtQF wGTN5PLg/yDi0LWP+Na7TGqgUOhXwUhhfa6 9X6AqZ2908-56-69G81:44:00 [facility])Orthopaedic Progress NoteREPORT#:[id number] REPORT STATUS: SignedREPORT INITIALIZATION DATE:04/20/23 TIME: 104 PATIENT: VALENTINO DALAL UNIT #: [id number]#: [id number] ROOM/BED: 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-ADOB: [birth year] AGE: 67 SEX: F ATTEND: Vineet Weeks AUTHOR: Hafsa Mathew PAREPT SERVICE DT/TIME: 04/20/23 [...] once home for DVT prophylaxis. at 1043 at 0922 RPT #:[id number] OF REPORT DSDischarge ibubxfh4495-56-01Z70:41:00Y.MAFR828 26[address]-7137ATMyzwkudio for patient llegJTOGCMJUDRLQQT9791-51-43O37:51: 08 [facility] 2023-04-20 07:10:00 T88429372650a/hT0LFP SmFwbiPZa7z1TTD B/koep/KGyMwQ8sESZflmFpQ94qvY0k4sEp o22riq8717-81-12A54:10:00 [facility])Clinical NoteREPORT#:[id number] REPORT STATUS: SignedREPORT INITIALIZATION DATE:04/20/23 TIME: 709 PATIENT: VALENTINO DALAL UNIT #: [id number]#: [id number] [facility] [birth year] AGE: 67 SEX: F ATTEND: Vineet Weeks MDADM AUTHOR: Jim Enriquez MDREPT SERVICE DT/TIME: 04/20/23 0710* ALL edits or amendments must be made on the electronic/computer document * Clinical NoteNote:[facility] Jim Evans M.D. (cell text [phone]) Assessment/Plan1.) Anemia of acute blood loss- .Hgb [...] Flow FiO2 Mean Ox Delivery Rate 04/20 0239 97.7 81 16 151/76 101.1 100 04/20 [...] dressing clean, dry Labs/X-ray: Laboratory Tests: 04/20 399 Chemistry Sodium (136 - 145 mmol/L) 139 [...] % (Auto) (20 - 40 %) 20.3 [place] % (Auto) (3 - 10 %) 8.7 Eos % (Auto) (1 - 5 %) 3.3 Baso % (Auto) (0.0 - 1.1 %) 0.7 Neut # (Auto) (2.00 - 7.50 K/mm3) 5.81 Lymph # (Auto) (1.50 - 4.00 K/mm3) 1.77 [place] # (Auto) (0.2 - 0.8 K/mm3) 0.76 Eos # (Auto) (0.04 - 0.4 K/mm3) 0.29 Baso # (Auto) (0.02 - 0.10 K/mm3) 0.06 Add Manual Diff (MANUAL DIFF) NO Nucleated RBC % (0 - 0 %) 0 Jim Evans M.D. at 0752 RPT #:[id number] OF REPORT CLClinical khfs9128-27-75D71:10:00Y.OWUU360966 VAvailable for patient ufpkSWCJAVVSDTBRVW4542-65-74D75:55: 31 [facility] 16:19:00 [id number] WYv/pOutJjpUueW 9254ddZwfE+EDt9WEccF4RZ8qy4BATquZju ZKEkMC3361-01-71R56:19:00 [facility])Clinical NoteREPORT#:[id number] REPORT STATUS: SignedREPORT INITIALIZATION DATE:04/19/23 TIME: 1618 PATIENT: VALENTINO DALAL UNIT #: [id number]#: [id number] [facility] [birth year] AGE: 67 SEX: F ATTEND: Vineet Weeks MDAJOLANTA AUTHOR: Jim Enriquez MDREPT SERVICE DT/TIME: 04/19/23 1619* ALL edits or amendments must be made on the electronic/computer document * Clinical NoteNote:[facility] Jim Evans MD(cell text [phone])Internal Medicine Consult at request of : Dr. [...] 71 17 122/63 100 Nasal 3 cannula 08 1030 Simple 8 mask 04/19 1030 72 16 138/66 98 Nasal 3 cannula 04/19 1015 89 30 151/67 100 Room air 0208 1000 71 22 111/55 99 Simple 8 [...] normal parameters and a f/u plan is zgqxrbmsldN3589 - Patient screened for tobacco use AND identified as a tobacco non-wykg1952K - ACP disscussion - default code status while at [facility]. at [address] [facility] #:[id number] OF REPORT CLClinical xqnh7791-36-56N02:19:00Y.LHDE761512 VAvailable for patient ymnwARJTJUKCRAPFZU0883-94-28T12:43: 37 [facility] 2023-04-19 10:21:00 [id number] vqOOvgu9hMvJAMk N/O6EPYhQT3oBm04W1XIPYnT0QSJsy7v6fc N3PPGp8151-16-80O39:21:00 [facility])Op/Inv Procedure Note - BriefREPORT#:[id number] REPORT STATUS: SignedREPORT INITIALIZATION DATE:04/19/23 TIME: 102 PATIENT: VALENTINO DALAL UNIT #: [id number]#: [id number] [facility] [birth year] AGE: 67 SEX: F ATTEND: Vineet Weeks AUTHOR: Hafsa Mathew PAREPT SERVICE DT/TIME: 04/19/23 1021* ALL edits or amendments must be made on the electronic/computer document * Op/Inv Proc Note - Brief TEXT Brief Op/Inv Procedure NoteNote details:*PRE-PROCEDURE DIAGNOSIS:1. Left hip painful hardware *POST-PROCEDURE DIAGNOSIS:Same *PROCEDURE(S) PERFORMED:Hardware removal left proximal femur *PRIMARY SURGEON:Vineet Weeks *[employer] PILOT(S):Hafsa Mathew PA-C ANESTHETIC:General *ESTIMATED BLOOD LOSS in ml's:10 cc *SPECIMEN(S) REMOVED:None *COMPLICATIONS:None DRAIN(S):None[] TUBE(S):None[] IMPLANT(S):None[] FLUIDS:[] URINE OUTPUT:[] *FINDINGS:Synthes plate and screws removed atraumatically. DISPOSITION:To PACU at 1025 at 0922 RPT #:[id number] OF REPORT PNProcedure znpe1686-93-53R74:21:00Y.ZDEN469111 -0059AVAvailable for patient auatXNAUZISZKCEKZD1181-25-62X96:08: 45 [facility] 2023-04-06 08:05:08 IjTDVKLzczOF0iWuSTeA rKs/J4ksoEB8sdd dKcMzpTCEqGou1HkLBcOHN6j85zyy2001-3 08:05:[address] Nguyen, "ok to clear. Needs follow up post op."Patient is going to be having hip surgery. Faxed GILLIAN note to [facility].12/2021"Preop cardiac evaluation-negative dobutamine stress echo. Normal ejection fraction. Low to intermediate cardiac risk for surgery"Patient notified that Dr. Nguyen recommends to follow up after surgery. She states she will call back to schedule after her surgery. 64419-5Vzpdizrgq encounter BcffCN2651-60-33K34:08:21Telephone encounter NoteTXT1.2.840.393614.1.13.104.2.7. 2.702161|3690843370ECCgifsqapw for patient euun55129-3DcccQCPDWMUTMWGFcttvfyyj C-CDA narrative jokv109145765Nwaq Sheavly RN[address] NynyIpuwuecseJhloiyefbASSJ113646277 4MGHVRFLEBYCUJWRJFRNTLT3009-72-78W4 8:08:211.2.840.536415.1.72.3.15|1.2 .840.557714.1.13.104.2.7.2.727879_2 [id number] Pinky Benavides RN [facility] 2023-04-05 16:23:28 qCi78ES+5GVlvCOGMyQZ FWqPVNXOg1RfCed GPErUTEYNxcZt2QKM1iPohLlW/dpQ9146-9 04-05T16:23:28 Last seen . Routed to Dr. Nguyen for chart review. 04010-0Fcuqsymzm encounter BcagHG8178-17-60L39:23:46Telephone encounter NoteTXT1.2.840.731100.1.13.104.2.7. 2.116296|0587107350NUNwkacnimg for patient iheu21282-0NtncHLMCNJKOOBDZuwuomxox C-CDA narrative text[address] DbfaHcypzgfbdFdkecmmqoLXND935393977 2PGPPIQVOIYLZWBEGFRLKCN6720-41-72B7 6:23:461.2.840.407505.1.72.3.15|1.2 .840.973047.1.13.104.2.7.2.727879_2 [id number] [facility] 2023-04-04 11:27:00 [id number] KqFWVgwUJwHs+h5 AYdlJFn/5Idgo6i0ZCwdSj0zDhzZlgSaqtA 2cVfUC2878-10-91A97:27:696634-1206 [place] [address] PATIENT NAME: VALENTINO DALAL ADMIT DATE: ACCOUNT NO: [id number] ROOM NO: AGE: 67 REPORT TYPE: ELECTROCARDIOGRAM SEX: F ADMITTING PHYSICIAN: ATTENDING PHYSICIAN:Vineet Weeks MD Order:[id number] Reason : PREOP CLEARNACE H/O HTN Test Date/Time Stamp:SunApr 04 2023 11:27:51Blood Pressure : / mmHGVent. Rate : 068 BPM Atrial Rate : 068 BPM P-R Int : 154 ms QRS Dur : 104 ms QT Int : 416 ms P-R-T Axes : 058 012 064 degrees QTc Int : 442 ms Normal sinus rhythmNormal ECG Confirmed by DOM FORBES MD ([id number]) on 04/08/2023 1:48:33 PM Referred By: Vineet Weeks Confirmed by:DOM FORBES MD PATIENT NAME: VALENTINO DALAL . [id number] for patient bhwrUQQSRUJIPIUAQW8189-20-96K71:48: 59 [facility] 2022-01-26 17:22:00 [id number] IpdQ7yW6n+lZB8/ rmJm6AcfawEQm5BbMBLpbtnBQbSxKKynxGT kz4cKi5277-47-06C04:22:[id number] [facility] [place] [id number] PATIENT NAME: VALENTINO DALAL ADMIT DATE: 01/19/22ACCOUNT NO: [id number] ROOM NO: Y.507 AGE: 66 REPORT TYPE: OPERATIVE REPORT SEX: F ADMITTING PHYSICIAN:Fabricio Cartagena MD ATTENDING PHYSICIAN:Fabricio Cartagena MD OPERATION DATE: 01/19/2022 SURGEON: Vineet Weeks MD [employer] PILOT: Fabricio Cartagena MD PREOPERATIVE DIAGNOSIS: Periprosthetic fracture [...] possible without the help of the skilled care assistant familiar with the procedure and capable safely performing the aforementioned tasks. Dictated By: Vineet Weeks MD Date Dictated: 01/26/2022 17:22:48Date Transcribed: 01/26/2022 20:46:00MRRhianna/SAIJob #: [id number] ID: [id number] by Vineet Weeks MD On 01/30/2022 09:31:57 AM at 0931 PATIENT NAME: VALENTINO DALAL txieqp4104-31-39B40:46:00Y.TGW86660 117-0079AVAvailable for patient ztoqWBHBANVCTUPZXH9642-77-76V00:32: 34 [facility] 2022-01-24 16:57:00 [id number] lrjjhld3yX60aaE 2pwpWTGYYj0dMHhO3o23ZTt6t0MKH1yuhV4 uUbZM76422-45-12O68:57:00 [facility])Clinical NoteREPORT#:[id number] REPORT STATUS: SignedDATE:01/24/22 TIME: 1656 PATIENT: VALENTINO DALAL UNIT #: [id number]#: [id number] ROOM/BED: [facility]-ADOB: [birth year] AGE: 66 SEX: F ATTEND: Fabricio Cartagena AUTHOR: Brant Inman MD * ALL edits or amendments must be made on the electronic/computer document * Clinical NoteNote:Progress Note Dictated [id number] at 1701 RPT #:[id number] OF REPORT CLClinical hexa1550-62-86X01:57:00Y.NDZS788563 150073AVAvailable for patient trtmANOSTDXUPHBSBG5066-78-86E45:01: 41 [facility] 2022-01-24 15:31:00 [id number] rDfDaYqxQkqIPIn /99FwWa9cDJ3hnMX6nFw/cvLmiyAiTUO4ml WfIHV30644-66-85I54:31:025480-7868 [facility] [place] [address] PATIENT NAME: VALENTINO DALAL ADMIT DATE: 01/19/22ACCOUNT NO: [id number] ROOM NO: [facility] AGE: 66 REPORT TYPE: PROGRESS NOTE [...] The patient will also be discharged on [place] 5 mg q. 6 hours p.r.n. for pain, dispensed 32 pills. The patient is instructed to take it q. 6 hours p.r.n. for breakthrough pain symptoms. The patient to follow up with Dr. Cartagena in approximately 2 weeks. Dictated By: Brant Inman MD Date Dictated: 01/24/2022 15:31:37Date Transcribed: 01/24/2022 17:20:57RADHA/ARNULFO/YOLANDA/Leanna #: [id number] ID: [id number] CC:Fabricio Cartagena MDAuthenticated by Brant Inman MD On 01/31/2022 04:51:20 PM at 0451 PATIENT NAME: VALENTINO DALAL gpmw6259-98-37C16:20:00Y.HSE5869763 5-0067AVAvailable for patient slsgVPPGCXEGWPIOUN3728-72-07T77:51: 50 [facility] 2022-01-24 08:38:00 [id number] OnWoseKmWnndXFh wk92aDp3dHeV4ymiHhI7vuOqagMztLpRlod RD6w902857-11-90C13:38:00 [facility])Discharge SummaryREPORT#:[id number] REPORT STATUS: SignedDATE:01/24/22 TIME: 837 PATIENT: VALENTINO DALAL UNIT #: [id number]#: [id number] [facility] 66 SEX: F ATTEND: Fabricio Cartagena [facility] AUTHOR: Elida Yanes * ALL edits or [...] office visit in [address] [facility] RecDischarge meds:Continue taking these medications:tiZANidine (ZANAFLEX) 4 [...] Routines: None at 0841 at 1647 RPT #:[id number] OF REPORT DSDischarge sprdols1068-90-84A01:38:00Y.KNLE972 24940-2195KOZbkahpihz for patient wkrwDRYTZHXYCKZUYV5592-22-54V34:41: 50 [facility] 2022-01-23 17:10:00 [id number] QzFlThRagRmyGFO Xby2YndGjkkFKbpko2DFx9ruQWhLGW/3qLK A5r9tU7880-57-60F46:10:00 [facility])Clinical NoteREPORT#:[id number] REPORT STATUS: SignedDATE:01/23/22 TIME: 1710 PATIENT: VALENTINO DALAL UNIT #: [id number]#: [id number] ROOM/BED: [facility]-ADOB: [birth year] AGE: 66 SEX: F ATTEND: Fabricio Cartagena AUTHOR: Brant Inman MD * ALL edits or amendments must be made on the electronic/computer document * Clinical NoteNote:Consult Note Dictated [id number] [id number] at 1713 RPT #:[id number] OF REPORT CLClinical gtxs6142-84-76X03:10:00Y.RBHO014439 14-0056AVAvailable for patient hjfvKLXMWNCQCBGMXF6377-94-43I30:13: 26 [facility] 2022-01-23 13:06:00 [id number]+yfU D3MHpC3kAhTEKr+ /8rQpR2mJPw2ldZL1lNl2A+CQ6X0j8KSiVQ tOttI/7173-87-61Z92:06:517557-7402 [place] [address] PATIENT NAME: VALENTINO DALAL ADMIT DATE: 01/19/22ACCOUNT NO: [id number] [facility] 66 REPORT TYPE: CONSULTATION REPORT [...] medication management. The patient was admitted to [facility] on January 19. The patient had sustained [...] MD Date Dictated: 01/23/2022 13:06:44Date Transcribed: 01/23/2022 19:03:28SIM/LAT/BRANT/Leanna #: [id number] ID: [id number] by Brant Inman MD On 01/31/2022 04:51:16 PM at 0451 PATIENT NAME: VALENTINO DALAL 4T19:03:00Y.AER34644540-0884FAQlnbp able for patient zgsoECEHNTKQGOLRUL6248-28-72V62:51: 50 [facility] 2022-01-23 07:05:00 [id number] CTnGac1D3hFmU5T YICVqEeCMknqXktfDS2b+Hq+CQq6qqbTlwY 8hU8ui3387-93-20R30:05:00 [facility])Pain Management Progress NoteREPORT#:[id number] REPORT STATUS: SignedDATE:01/23/22 TIME: 0705 PATIENT: VALENTINO DALAL UNIT #: [id number]#: [id number] [facility]GE: 66 SEX: F ATTEND: [...] Consultation requested by Dr Cartagena to initiate ELEVATOR CONSTRUCTOR HYDRAULIC pump for patient last night. Patient reports her pain is primarily in the right anterior and lateral thigh area, not so much the hip. Due to the pain, patient's ability to tolerate walking is limited to the door of her room. Patient rated severe pain 9-10/10 with an inability to sleep. Patient reports significant improved pain management with the ELEVATOR CONSTRUCTOR HYDRAULIC pump, now 3-4/10. Patient reports finally getting [...] RATE: O DOSE: 0.1MG DELAY: 8 MIN ELEVATOR CONSTRUCTOR HYDRAULIC Use: Moderate Activity status: OOB Pain: 3/10 Physical Exam: VAS: 3/10 LOS: Awake, Alert, Oriented Resp Quality: Regular, Unlabored, Even Side Effects: None PATIENT RESTING IN BED WATCHING TV AND APPEARS COMFORTABLE AND WELL RESTEDPlan: CONTINUE ELEVATOR CONSTRUCTOR HYDRAULIC PUMP PATIENT TO BE SEEN BY DR INMAN IN THE AM. at 0732 [facility] #:[id number] OF REPORT PRProgress atcy4987-36-41D27:05:00Y.CAXM972830 14-0007AVAvailable for patient plhqIRKCYBWZWDYKCE2534-75-10W00:33: 05 [facility] 2022-01-22 09:09:00 [id number] 4FlSQAjtuYoFlCJ rS8IRMOWVlXm8YK8quq72rAAVpwqpSf0T3U 0ALtgl5851-11-80E70:09:00 [facility])Clinical NoteREPORT#:[id number] REPORT STATUS: SignedDATE:01/22/22 TIME: 0909 PATIENT: VALENTINO DALAL UNIT #: [id number]#: [id number] ROOM/BED: [facility]-ADOB: [birth year] AGE: 66 SEX: F ATTEND: Fabricio Cartagean [facility] AUTHOR: Fabricio Cartagena MD * ALL edits [...] Flow Rate 3 01/20 0306 at 0910 RPT #:[id number] OF REPORT CLClinical ubts1126-42-48O80:09:00Y.DBIJ636010 -0012AVAvailable for patient lidoIUUBFUGEPWTCXM3980-08-84G64:11: 15 [facility] 2022-01-21 11:20:00 T97713393274c9tWQ/Yl SaB3jm8/X0q1IAu WZU7emZ1dbw3cvp+wY+8iJG44ZcreVbgoE5 lI7d/29192-71-83F78:20:00 [facility])Orthopaedic Progress NoteREPORT#:[id number] REPORT STATUS: SignedDATE:01/21/22 TIME: 1120 PATIENT: VALENTINO DALAL UNIT #: [id number]#: [id number] [facility] [birth year] AGE: 66 SEX: F ATTEND: Fabricio Cartagena AUTHOR: Elida Yanes * ALL edits or [...] pain control. at 1122 at 0908 RPT #:[id number] OF REPORT PRProgress dzyu7226-93-40C18:20:00Y.MVBV552977 12-0032AVAvailable for patient aicpLWUGFDOBVACTEO7208-30-44Y79:22: 45 [facility] 10:40:00 P486277861237WONpYLM cLIWD+k3dmRG3iU bMR0kvCmr+sgVOnt3kSwmjaCecGN2m8Oefx blEIUD2827-23-27Z13:40:00 [facility])Orthopaedic Progress NoteREPORT#:[id number] REPORT STATUS: SignedDATE:01/20/22 TIME: 1040 PATIENT: VALENTINO DALAL UNIT #: [id number]#: [id number] ROOM/BED: [facility]-ADOB: [birth year] AGE: 66 SEX: F ATTEND: Fabricio Cartagena [facility] AUTHOR: Hafsa Mathew * ALL edits or [...] 200 MG .STK-MED ONE IV (DC) Rocuronium Dawson (Rocuronium Dawson 10 mg/mL) 50 MG .STK-MED ONE IV (DC) Sodium Chloride (SODIUM CHLORIDE 0.9%) 100 ML .STK-MED ONE IV (DC) Sugammadex Sodium (Bridion) 200 MG .STK-MED ONE IV (DC) Tranexamic Acid (CYKLOKAPRON) 2,000 MG .STK-MED ONE IV (DC) Vecuronium Dawson (NORCURON) 10 MG .STK-MED ONE IV (DC) [...] d/c planning at 1043 at 0902 RPT #:[id number] OF REPORT PRProgress dewl4932-29-95F48:40:00Y.GLMR425357 VAvailable for patient vqubPQLSGREODJZXTN8423-59-99Q89:43: 56 [facility] 2022-01-20 07:00:00 [id number]/vSlOb WeJuABiSpk844x8 vqxhKRSfWPrAzg89b6ozbHFs/w4jz7jXNqY lBw2ix7631-37-49W66:00:00 [facility])Orthopaedic Progress NoteREPORT#:[id number] REPORT STATUS: SignedDATE:01/20/22 TIME: 0700 PATIENT: VALENTINO DALAL UNIT #: [id number]#: [id number] [facility]GE: 66 SEX: F ATTEND: Fabricio Cartagena MDA AUTHOR: Elida Yanes * ALL edits or [...] 4)Discharge planning at 0700 at 0952 RPT #:[id number] OF REPORT PRProgress ndba2691-51-59V42:00:00Y.ISBD869560 0015AVAvailable for patient oequTSIQKEBCWMXNFA6330-39-28T01:01: 05 [facility] 2022-01-20 06:58:00 [id number] v25H3kFx+6bLYTa C9q/3A52L0mQBVrpKO60EBZu3qfF9bdHsAM JSoPE82201-88-15I84:58:144841-1220 [facility] [place] [address] PATIENT NAME: VALENTINO DALAL ADMIT DATE: 01/19/22ACCOUNT NO: [id number] ROOM NO: Y.507 AGE: 66 REPORT TYPE: OPERATIVE REPORT SEX: F ADMITTING PHYSICIAN:Fabricio Cartagena MD ATTENDING PHYSICIAN:Fabricio Cartagena MD OPERATION DATE: PREOPERATIVE DIAGNOSIS: Loosening of right hip arthroplasty. POSTOPERATIVE DIAGNOSIS: Loosening of right hip arthroplasty and femurfracture. PROCEDURES:1. Revision right total hip replacement.2. Open reduction and internal fixation of right femur. SURGEON: Fabricio Dawson M.D. [employer]: Vineet Weeks M.D. COMPONENTS USED IMPLANTS: Rubi [...] NAME: VALENTINO DALAL The vastus lateralis was closed over the [...] MD Date Dictated: 01/20/2022 06:58:26Date Transcribed: 01/20/2022 07:45:22SORIN/ZOHAR/Eileen #: [id number] ID: [id number] and Edited by Fabricio Cartagena MD On 01/22/22 7:58:29 AM at 0801 PATIENT NAME: VALENTINO DALAL rhgsip6064-67-79A30:45:00Y.KTM24974 111-0021AVAvailable for patient tephZUAUJPTKAEGOJC2767-09-84C35:06: 40 [facility] 2022-01-19 14:23:00 [id number]+nAN1 Ui0p1pQ4ZRAECrY oeAk+iOW1PwPZcLED0+gIfevC+GGCmUV9au XqKUfk5523-14-53N31:23:00 [facility])Brief Op NoteREPORT#:[id number] REPORT STATUS: SignedDATE:01/19/22 TIME: 1423 PATIENT: VALENTINO DALAL UNIT #: [id number]#: [id number] ROOM/BED: [place] [address]DOB: [birth year] AGE: 66 SEX: F ATTEND: Fabricio Cartagena AUTHOR: Fabricio Cartagena MD * ALL edits or amendments must be made on the electronic/computer document * Op/Inv Proc Note - BriefPre-procedure diagnosis:R LOOSE THAPost-procedure diagnosis: same as pre procedure dxProcedures performed:R REV THAPrimary Surgeon:Sunny-surgeon:Macrina ureñat(s): Lana YANES PA-CFindings:LOOSE STEM, ACETABULAR WEARWELL-EMBEDDED DISTAL CEMENT, WEAKENED BONEComplications: INTRAOP FEMUR FXEstimated blood loss in ml's: 700 CCSpecimens removed/altered: none at 2055 RPT #:[id number] OF REPORT OPOperative yaaghh5397-32-90Q88:23:00Y.EVNS1380 1110-0121AVAvailable for patient kxjrARCXBCPOPPQEQV7572-60-36L25:55: 20 [facility] 2021-11-21 11:37:00 [id number] MecjsiU730f0RJp 1sDRZKVUAiGNFFXghRH3uGqvV4/J/74IzL2 Yt9xpC6842-90-23A96:37:582341-1940 [facility] [place] [address] PATIENT NAME: VALENTINO DALAL ADMIT DATE: ACCOUNT NO: [id number] ROOM NO: AGE: 66 REPORT TYPE: ELECTROCARDIOGRAM SEX: F ADMITTING PHYSICIAN:Fabricio Cartagena MD ATTENDING PHYSICIAN:Fabricio Cartagena MD Order:[id number] Reason : PRE-OP CLEARANCE HTN Test Date/Time [...] change was foundConfirmed by DOM FORBES MD ([id number]) on 11/22/2021 5:35:29 PM Referred By: Fabricio Cartagena Confirmed by:DOM FORBES MD PATIENT NAME: VALENTINO DALAL . [id number] for patient quaeLKSMSUFJMAKRUL5826-85-61X24:35: 50 [facility]
[2023-06-15] MEDS ORDERED: NA CHLORIDE 0.9% 1,000 ML ONE (14:10)
[2023-06-15] MEDS ORDERED: ONDANSETRON 4 MG/2 ML VIAL ONE (14:10)
[2023-06-15 14:16] LABS: Absolute Basophils 0.1 K/uL (0-0.5); Absolute Eosinophils 0.2 K/uL (0-0.5); Absolute Lymphocytes (CBC) 1.4 K/uL (0.7-4.9); Absolute Monocytes 0.3 K/uL (0.1-1.3); Absolute Neutrophil 5.7 K/uL (1.8-8.0); Basophils % 1.1 % (0-1.3); Eosinophils % 2.2 % (0-4.4); Hematocrit 33.8 % (36.0-45.0); Hemoglobin 10.7 g/dL (12.0-15.0); Lymphocytes % 18.3 % (15.3-44.8); MCHC 31.8 g/dL (32.0-36.0); MCV 78.4 fL (80-100); MPV 7.9 fL (7.6-11.3); Monocytes % 3.9 % (3.3-12.3); Neutrophils % 74.5 % (41.7-73.7); Platelets 311 thou/uL (152-406)
[2023-06-15 14:19] LABS: Specific Gravity 1.015 (1.005-1.030); Sqamous Epithelial <5 /HPF (None Seen); Urine Bacteria None Seen /HPF (<20); Urine Bilirubin NEGATIVE (Negative); Urine Blood Negative (Negative); Urine Clarity Extremely Turbid (Clear); Urine Color Yellow (Yellow); Urine Culture Reflex Order NOT NEEDED; Urine Glucose NEGATIVE (Negative); Urine Ketones NEGATIVE (Negative); Urine Microscopic Reflex YN ORDER UMIC; Urine Mucus Slight /HPF (None Seen); Urine Nitrite NEGATIVE (Negative); Urine Protein TRACE (Negative); Urine RBC <5 /HPF (None Seen); Urine Urobilinogen Normal (Normal); Urine WBC None Seen /HPF (<5); Urine pH 7.5 (5.0-7.0)
[2023-06-15 14:32] LABS: Albumin 3.1 g/dL (3.4-5.0); Albumin/Globulin Ratio 0.8 (1.1-1.8); Anion Gap 7.9 mEq/L (5.0-15.0); Bilirubin Total 0.4 mg/dL (0.2-1.0); Globulin 3.9 g/dL (2.3-3.5); Potassium 3.9 mEq/L (3.5-5.1)
[2023-06-15] MEDS ORDERED: KETOROLAC 30 MG/ML INJ ONE (14:46)
[2023-06-15] MEDS ORDERED: LIDOCAINE 4% PATCH ONE (14:47)
--- NOTE | 2023-06-15 15:28 | RAD REPORT ---
EXAM DESCRIPTION: CTAbdomen Pelvis W Contrast - 06/15/2023 3:09 pm CLINICAL HISTORY: mid back pain COMPARISON: Abdomen Pelvis W Contrast dated 06/09/2016 TECHNIQUE: CT of the abdomen and pelvis was performed. All CT scans are performed using dose optimization technique as appropriate and may include automated exposure control or mA/KV adjustment according to patient size. FINDINGS: Lower chest: Mild cardiomegaly. Mitral and calcifications. Liver: Subcentimeter low-density lesion in the left hepatic lobe is likely benign. Mild heterogeneous enhancement of the liver. Biliary: Question cholelithiasis. Stomach: No significant focal abnormality. Duodenum: No significant focal abnormality. Pancreas: No significant abnormality. Spleen: No significant abnormality. Adrenal: No suspicious lesions. Kidney/ureter: No hydronephrosis. No renal calculi. Distal ureters secured by streak artifact from th e hip arthroplasties. Subcentimeter left renal lesion which is most consistent with a cyst. Retroperitoneum: No retroperitoneal adenopathy. Vascular: No aneurysm. Atherosclerosis . Bowel: Moderate stool in the colon, particularly the cecum. No bowel obstruction. Normal appendix.. Peritoneum: Prominent upper abdominal/portacaval lymph nodes. This may reflect underlying liver disea se. Findings are present on the prior exam as well. Bladder: Grossly unremarkable. Reproductive: No adnexal masses. Bones: No acute fracture. Bilateral hip arthroplasties. Multilevel degenerative changes are present i n the spine. Other: n/a IMPRESSION: No acute intra-abdominal or pelvic finding.
--- NOTE | 2023-06-15 16:30 | EDPHYS ---
Physician Documentation [facility] Name: Bernadine Dalal Age: 67 yrs Sex: Female : 1955 Arrival Date: 06/15/2023 Time: 13:41 Bed 17 Private MD: ED Physician Jevon Hernandez HPI: 06/14 14:00 This 67 yrs old Female presents to ER via Ambulatory with complaints of Urinary Problem.cp 14:00 The patient presents with urinary symptoms, dysuria. Onset: The symptoms/episode cp began/occurred 3 day(s) ago. Associated signs and symptoms: Pertinent positives: body aches, fatigue, back pain, Pertinent negatives: fever. 14:00 Severity of symptoms: in the emergency department the symptoms are unchanged, despite cp home interventions. Historical: - Allergies: 13:50 PENICILLINS; ll1 13:50 Vancomycin; ll1 - PMHx: 13:50 BRAIN CYST; Chronic pain; fall/L hip fx; Hypertensive disorder; Migraines; RA; ll1 prolapsed uterus; SVT; UTI; - PSHx: 13:50 hip SX with hardware; Left hip replacement; Right hip replacement; Total abdominal ll1 hysterectomy; - Immunization history:: Adult Immunizations up to date. - Infectious Disease History:: Denies. CDIFF, C. Auris, ESBL, MRSA (w/in 1 year), VRE (w/in 1 year), TB, . - Social history:: Smoking status: Patient denies any tobacco usage or history of. ROS: 14:05 Constitutional: Positive for body aches, Negative for fever, poor PO intake, cp 14:05 Eyes: Negative for injury, pain, redness, and discharge, cp 14:05 ENT: Negative for drainage from ear(s), ear pain, sore throat, difficulty swallowing, difficulty handling secretions, 14:05 Respiratory: Negative for cough, shortness of breath, wheezing, 14:05 Abdomen/GI: Negative for abdominal pain, vomiting, diarrhea, constipation, 14:05 Back: Positive for pain at rest, pain with movement, of the mid back area, 14:05 : Positive for burning with urination, Negative for hematuria, 14:05 Neuro: Negative for altered mental status, dizziness, headache, numbness, syncope, weakness, 14:05 All other systems are negative, Exam: 14:10 Constitutional: The patient appears in no acute distress, alert, awake, cp non-diaphoretic, non-toxic, well developed, well nourished, 14:10 Head/Face: Normocephalic, atraumatic. cp 14:10 Eyes: Periorbital structures: appear normal, Conjunctiva: normal, no exudate, no injection, Sclera: no appreciated abnormality, Lids and lashes: appear normal, bilaterally, 14:10 ENT: External ear(s): are unremarkable, Nose: is normal, Mouth: Lips: moist, Oral mucosa: moist, Posterior pharynx: is normal, airway is patent, no erythema, no exudate, 14:10 Neck: ROM/movement: is normal, is supple, without pain, no range of motions limitations, 14:10 Chest/axilla: Inspection: normal, 14:10 Cardiovascular: Rate: normal, Rhythm: regular, Edema: is not appreciated, JVD: is not appreciated, 14:10 Respiratory: the patient does not display signs of respiratory distress, Respirations: normal, no use of accessory muscles, no retractions, labored breathing, is not present, Breath sounds: are clear throughout, no decreased breath sounds, no stridor, no wheezing, 14:10 Abdomen/GI: Inspection: abdomen appears normal, Bowel sounds: active, all quadrants, Palpation: abdomen is soft and non-tender, in all quadrants, 14:10 Back: pain, that is moderate, of the mid back area, ROM is painful, with all movement, 14:10 Neuro: Orientation: to person, place \T\ time. Mentation: is normal, Motor: moves all cp fours, strength is normal, Sensation: is normal, Vital Signs: 13:51 BP 158 / 66; Pulse 67; Resp 16; Temp 97.6; Pulse Ox 98% on R/A; Weight 72.57 kg; Height ll1 5 ft. 6 in. ; Pain 7/10; 17:15 BP 151 / 84; Pulse 64; Resp 18; Pulse Ox 98% ; cp4 13:51 Body Mass Index 25.82 (72.57 kg, 167.64 cm) ll1 13:51 Pain Scale: Adult ll1 MDM: 13:44 Patient medically screened. cp 16:30 Data reviewed: vital signs, nurses notes, lab test result(s), radiologic studies, CT cp scan, and as a result, I will discharge patient. 16:30 I considered the following discharge prescriptions or medication management in the emergency department Medications were administered in the Emergency Department. See MAR. Care significantly affected by the following chronic conditions: Hypertension. Counseling: I had a detailed discussion with the patient and/or guardian regarding the historical points, exam findings, and any diagnostic results supporting the discharge/admit diagnosis, lab results, radiology results, the need for outpatient follow up, a family practitioner, a general surgeon, to return to the emergency department if symptoms worsen or persist or if there are any questions or concerns that arise at home. Response to treatment: the patient's symptoms have mildly improved after treatment, and as a result, I will discharge patient. Refusal of service: The patient/guardian displays adequate decision making capability and despite a detailed discussion of alternatives, benefits, risks, and consequences refuses: us gallbladder due to known history of gallstones. 06/14 13:50 Order name: CBC with Diff; Complete Time: 14:28 06/14 14:28 Interpretation: Normal except: HGB 10.7; HCT 33.8; MCV 78.4; MCH 25.0; MCHC 31.8; RDW cp 18.0; GAIL% 74.5. 06/14 13:50 Order name: CMP; Complete Time: 14:33 cp 06/14 16:21 Interpretation: Normal except: CRE 1.05; GFR 59; AST 14; ALB 3.1; GLOB 3.9; A/G 0.8. cp 06/14 13:50 Order name: Lipase; Complete Time: 14:33 cp 06/14 13:50 Order name: Urinalysis w/ reflexes; Complete Time: 14:28 cp 06/14 16:22 Interpretation: Normal except. cp 06/14 14:35 Order name: CT Abd/Pelvis - IV Contrast Only; Complete Time: 15:42 cp 06/14 13:50 Order name: IV Saline Lock; Complete Time: 14:12 cp 06/14 13:50 Order name: Labs collected and sent; Complete Time: 14:12 cp Administered Medications: 14:20 Drug: NS 0.9% IV 1000 ml IV at 1 bolus Per protocol; 500 cc bolus, then 100 cc/hr cp4 Route: IV; Rate: 1 bolus; Site: right antecubital; 17:03 Follow up: Response: No adverse reaction; IV Status: Completed infusion cp4 14:20 Drug: Ondansetron IVP 4 mg IVP once; over 2 minutes Route: IVP; Site: right antecubital;cp4 17:04 Follow up: Response: No adverse reaction cp4 14:50 Drug: Lidoderm Topical Patch 5 % (700 mg/patch) 1 patches Topical once; leave on for 12 cp4 hours; cover most painful area; may cut into smaller pieces Route: Topical; Site: affected area; 17:03 Follow up: Response: No adverse reaction cp4 14:50 Drug: Ketorolac IVP 15 mg IVP once Route: IVP; Site: right antecubital; cp4 17:03 Follow up: Response: No adverse reaction cp4 Disposition Summary: 06/15/23 16:30 Discharge Ordered Notes: Location: Home cp Problem: new cp Symptoms: have improved cp Condition: Stable cp Diagnosis - Dorsalgia, unspecified cp - Dysuria cp - Other fatigue cp Followup: cp - With: Private Physician - When: 2 - 3 days - Reason: Recheck today's complaints Discharge Instructions: - Discharge Summary Sheet cp - Acute Back Pain, Adult cp - Dysuria cp - Fatigue cp Forms: - Medication Reconciliation Form cp - Thank You Letter cp - Antibiotic Education cp - Prescription Opioid Use cp - Patient Portal Instructions cp - Leadership Thank You Letter cp Prescriptions: - Cyclobenzaprine 10 mg Oral tablet - take 1 tablet ORAL route every 8 hours As needed; 20 tablet; Refills: 0, cp Product Selection Permitted Signatures: Dispatcher [employer] EDSae Moreno PA PA cp Sobeida Stahl RN RN ll1 Verena Garg cp4 Corrections: (The following items were deleted from the chart) 13:51 13:50 PMHx: fall/L hip fx; ll1 ll1 13:51 13:50 PMHx: fall/L hip fx; ll1 ll1 13:51 13:50 PMHx: fall/L hip fx; ll1 ll1 06/15 01:30 06/14 14:10 Skin: cp cp
--- NOTE | 2023-06-15 16:30 | ER ---
Nurse's Notes [facility] Name: Bernadine Dalal Age: 67 yrs Sex: Female : 1955 Arrival Date: 06/15/2023 Time: 13:41 Bed 17 Private MD: Diagnosis: Dorsalgia, unspecified;Dysuria;Other fatigue Presentation: 06/14 13:51 Chief complaint: Patient states: Painful urination, fatigue, body aches for 3 days. No ll1 fever. Coronavirus screen: Client denies travel out of the [place] in the last 14 days. At this time, the client does not indicate any symptoms associated with coronavirus-19. Ebola Screen: Patient denies travel to an Ebola-affected area in the 21 days before illness onset. Initial Sepsis Screen: Does the patient meet any 2 criteria? No. Patient's initial sepsis screen is negative. Does the patient have a suspected source of infection? No. Patient's initial sepsis screen is negative. Risk Assessment: Do you want to hurt yourself or someone else? Patient reports no desire to harm self or others. Onset of symptoms was June 13, 2023. 13:51 Method Of Arrival: Ambulatory ll1 13:51 Acuity: JODEE 3 ll1 Triage Assessment: 17:15 General: Appears uncomfortable, Behavior is calm, cooperative, appropriate for age. cp4 Historical: - Allergies: 13:50 PENICILLINS; ll1 13:50 Vancomycin; ll1 - PMHx: 13:50 BRAIN CYST; Chronic pain; fall/L hip fx; Hypertensive disorder; Migraines; RA; ll1 prolapsed uterus; SVT; UTI; - PSHx: 13:50 hip SX with hardware; Left hip replacement; Right hip replacement; Total abdominal ll1 hysterectomy; - Immunization history:: Adult Immunizations up to date. - Infectious Disease History:: Denies. CDIFF, C. Auris, ESBL, MRSA (w/in 1 year), VRE (w/in 1 year), TB, . - Social history:: Smoking status: Patient denies any tobacco usage or history of. Screenin:13 [facility] ED Fall Risk Assessment (Adult) History of falling in the last 3 months, cp4 including since admission No falls in past 3 months (0 pts) Confusion or Disorientation No (0 pts) Intoxicated or Sedated No (0 pts) Impaired Gait No (0 pts) Mobility Assist Device Used No (0 pt) Altered Elimination No (0 pt) Score/Fall Risk Level 0 - 2 = Low Risk Oriented to surroundings, Maintained a safe environment, Assessed \T\ reinforced patient's understanding of fall precautions, Hourly rounding (assess needs \T\ fall precautionary measures) done. Abuse screen: Denies threats or abuse. Nutritional screening: No deficits noted. Tuberculosis screening: No symptoms or risk factors identified. Assessment: 14:13 General: Appears in no apparent distress. Behavior is calm, cooperative, appropriate cp4 for age. Pain: Complains of pain in pelvic. : Reports burning with urination, pain in suprapubic area urgency. Vital Signs: 13:51 BP 158 / 66; Pulse 67; Resp 16; Temp 97.6; Pulse Ox 98% on R/A; Weight 72.57 kg; Height ll1 5 ft. 6 in. ; Pain 7/10; 17:15 BP 151 / 84; Pulse 64; Resp 18; Pulse Ox 98% ; cp4 13:51 Body Mass Index 25.82 (72.57 kg, 167.64 cm) ll1 13:51 Pain Scale: Adult ll1 ED Course: 13:43 Patient arrived in ED. rg4 13:43 Sae Padilla PA is PHCP. cp 13:43 Jevon Hernandez MD is Attending Physician. cp 13:50 Arm band placed on Patient placed in an exam room, on a stretcher. ll1 13:52 Triage completed. ll1 13:58 Verena Garg is Primary Nurse. cp4 14:12 CBC with Diff Sent. cp4 14:12 CMP Sent. cp4 14:12 Lipase Sent. cp4 14:12 Urinalysis w/ reflexes Sent. cp4 14:13 Bed in low position. Call light in reach. Side rails up X 1. cp4 14:13 No provider procedures requiring assistance completed. Inserted saline lock: 20 gauge cp4 in right antecubital area, using aseptic technique. Blood collected. 15:10 CT Abd/Pelvis - IV Contrast Only In Process Unspecified. EDMS 17:16 Provided Education on: dysuria. cp4 17:16 intact, bleeding controlled, No redness/swelling at site. Pressure dressing applied. cp4 Administered Medications: 14:20 Drug: NS 0.9% IV 1000 ml IV at 1 bolus Per protocol; 500 cc bolus, then 100 cc/hr cp4 Route: IV; Rate: 1 bolus; Site: right antecubital; 17:03 Follow up: Response: No adverse reaction; IV Status: Completed infusion cp4 14:20 Drug: Ondansetron IVP 4 mg IVP once; over 2 minutes Route: IVP; Site: right antecubital;cp4 17:04 Follow up: Response: No adverse reaction cp4 14:50 Drug: Lidoderm Topical Patch 5 % (700 mg/patch) 1 patches Topical once; leave on for 12 cp4 hours; cover most painful area; may cut into smaller pieces Route: Topical; Site: affected area; 17:03 Follow up: Response: No adverse reaction cp4 14:50 Drug: Ketorolac IVP 15 mg IVP once Route: IVP; Site: right antecubital; cp4 17:03 Follow up: Response: No adverse reaction cp4 Medication: 14:13 VIS not applicable for this client. cp4 Outcome: 16:30 Discharge ordered by MD. cp 17:16 Discharged to home ambulatory, cp4 17:16 Condition: stable 17:16 Discharge instructions given to patient, Instructed on discharge instructions, follow up and referral plans. medication usage, Demonstrated understanding of instructions, follow-up care, medications, Prescriptions given X 1, 17:17 Patient left the ED. cp4 Signatures: Dispatcher [employer] EDMS Sae Padilla PA PA cp Garcia, Cherelle rg4 Sobeida Stahl RN RN ll1 Verena Garg cp4 Corrections: (The following items were deleted from the chart) 13:51 13:50 PMHx: fall/L hip fx; ll1 ll1 13:51 13:50 PMHx: fall/L hip fx; ll1 ll1 13:51 13:50 PMHx: fall/L hip fx; ll1 ll1
[2023-06-15 18:48] VITALS: BP 151/84; TEMP 97.6; O2SAT 98
== END 2023-06-15 17:17 | disposition home or self-care (01) ==
LOC: ER 13:41
DX: R30.0 Dysuria (principal); M54.9 Dorsalgia, unspecified; R53.83 Other fatigue; I10 Essential (primary) hypertension; Z96.643 Presence of artificial hip joint, bilateral; Z88.0 Allergy status to penicillin; Z88.3 Allergy status to other anti-infective agents
CPT/HCPCS: 96361; 85025; 81001; 36415; 83690; 80053; 74177; 96375; 96374; 99284; Q9967; J2001; J2405; J7030

== ENCOUNTER 2024-05-08 11:36 | Emergency (ER) | payer OTHER ==
--- OUTSIDE RECORDS SUMMARY | 2024-05-08 11:44 | XMS REPORT | Continuity of Care Document ---
Author Name Unknown Address [address] [facility] [address] [place] [address] [facility] Address [address] 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 Name Role Phone Patric Cole Primary Care Physician [phone] Patric Cole Attending Clinician Unavailable Andreas Linares Attending Clinician Unavailable STEFANIE GOODMAN Attending Clinician Unavailable Van Zamorano Attending Clinician Unavailable Bernice Attending Clinician Unavail able Stephy Chacon MA Attending Clinician Unavaila ble Radiology Attending Clinician Unavailable RADIOLOGY Attending Clinician Unavailable Doctor Unassigned, [place] Attending Clinician U Vineet Finney Attending Clinician Unavailable Maricarmen Nguyen MD Attending Clinician [phone] [email or web address] Attending Clinician Unavaila MARICARMEN Cardoso Attending Clinician Unavailable Fabricio Cartagena Attending Clinician Unavailabl Fabricio Eller Attending Clinician [phone] DES MAYEN Attending Clinician Unavailable Green [employer], Des Attending Clinician SHANNAN ROY Attending Clinician Unavailable MARCK HANNA Attending Clinician Unavailab MARCK Mariscal Attending Clinician Unavailab jessika Perkins, [facility] Attending Clinician UnavailERICA Bell Attending Clinician Unavailable ERICA CABA Attending Clinician Unavailable Erica Caba DO Attending Clinician Gramm [employer], Sana A Attending Clinician [phone] GRAMM, SANA A Attending Clinician Unavailable Johanny Kaplan MD Attending Clinician GRACY MCKEON Attending Clinician Unavailab JOHANNY Moore Attending Clinician Unavailable Tri Chin MD Attending Clinician TRI CHIN Attending Clinician Unavailbert castellon Nurse, [facility] Gu Attending Clinician Paul Diaz DO Attending Clinician Osito Rodriguez DO Attending Clinician Geovany Carbone MD Attending Clinician [phone] Oscar Dean Attending Clinician [phone] Kendra Oden MD Attending Clinician GEOVANY CARBONE Attending Clinician Unavailable ELIEL SAUCEDA Attending Clinician Unavail able KENDRA ODEN Attending Clinician Unavailable Patric Cole Admitting Clinician Unavailable Vineet Weeks Admitting Clinician Unavailable Bernice Admitting Clinician Unavail able [email or web address]_Emelyn Admitting Clinician UnavailFabricio Garcia Admitting Clinician UnavailMARICARMEN Leyva Admitting Clinician Unavailable SHANNAN ROY Admitting Clinician Unavailable Payers Payer Name Policy Type Policy Number Effective Date Expirati on Date Source [facility] MEDICAID STAR [id number] 2021 00:00:00 [facility] COMMUNITY PLAN STAR PLUS [id number] 2020 00:00:00 [facility] [id number] 00:00:00 [facility] STAR PLUS [id number] 00:00:00 [place]: [employer] SOLUTIONS [id number] 2021-07-10 00:00:00 [facility] [place]AN-[place] (MEDICAID REPLACEMENT - HMO) [id number] 2023-03-12 00:00:00 [facility] (MEDICARE DME REGION C) [id number] 2021-07-10 00:00:00 [place] - [place] - [place] - [place] GE - HMO) [id number] 2022-12-10 00:00:00 2023-03-11 00:00:00 [place] [id number] Problems Condition Name Condition Details Condition Category Status Onset Date Resolution Date Last Treatment Date Treating Clinician Comments Source 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 Osteoarthr itis of Joint of Right Wrist Problem Active 03-27 00:00: 00 [facility] Tenosynovi tis of right radial styloid Tenosynovi tis of Right Radial Styloid Problem Active 16 00:00: 00 [facility] Pain in right hand Pain in Right Hand Problem Active 14 00:00: 00 [facility] Rheumatoid arthritis of right wrist Rheumatoid Arthritis of Right Wrist Problem Active 2023-03 00:00: 00 [facility] Carpal tunnel syndrome of right wrist Carpal Tunnel Syndrome of Right Wrist Problem Active 2023-03 00:00: 00 [facility] Mechanical complicati on associated with orthopedic device Mechanical Complicati on Associated with Orthopedic Device Problem Active 1-24 00:00: 00 [facility] Periprosth etic fracture Periprosth etic Fracture Problem Active 2022-03 0 00:00: 00 [facility] Subtrochan teric fracture of left femur Subtrochan teric Fracture of Left Femur Problem Active 2022-03 0 00:00: 00 [facility] [...] of Hip Joint Prosthesis Problem Active 2021-03 1- 00:00: 00 [facility] Periprosth etic fracture of hip Periprosth etic Fracture of Hip Problem Active 2021-03 00:00: 00 [facility] Chronic postoperat art pain Chronic Postoperat art Pain Problem Active 2021-03 1 00:00: 00 [facility] Pain in right hip joint Pain in Right Hip Joint Problem Active 11-25 00:00: 00 [facility] Chronic pain disorder Chronic pain disorder Disease Recurre nce 10-11 00:00: 00 [facility] Pain of left hip joint Pain of [...] 00 [facility] [id number] Primary osteoarthr itis of right shoulder Problem Active [facility] [id number] Hip joint replacemen t by other means Problem Active [facility] [id number] Recurrent UTI Problem Active [facility] [id number] Hematuria, unspecifie d type Problem Active [facility] Allergies, Adverse Reactions, Alerts Allergy Name Allergy Type Status Severity Reaction(s) Onset Date Inactive Date Treating Clinician Comments Source sulfamet hoxazole DA Active [place] HIVES 03-27 00:00: 00 [facility] trimetho prim DA Active MO HIVES 03-27 00:00: 00 [facility] Iodinate d Contrast Media DA Active [place] "INSIDES ON FIRE", HYPERVENTILA MANUEL 04-19 00:00: 00 [facility] Penicill ins DA Active SV convulsions 04-19 00:00: 00 [facility] vancomyc in DA Active [place] HIVES, SKIN PEELED OFF, EXTREME RED SKIN 04-19 00:00: 00 [facility] Iodinate d Contrast Media DA Active [place] "INSIDES ON FIRE", HYPERVENTILA MANUEL - 00:00: 00 [facility] Penicill ins DA Active SV convulsions 04-04 00:00: 00 [facility] vancomyc in DA Active NC HIVES, SKIN PEELED OFF, EXTREME RED SKIN - 00:00: 00 [facility] Metoprol ol Allergy to substanc e Active 2021-03 00:00: 00 [facility] METOPROL OL DRUG INGREDI Active Other-Cmnt 2021-03 00:00: 00 [facility] Met[facility] Propensi ty to adverse reaction s Active Other - See comments 2021-03 00:00: 00 migraine [facility] Vancomyc in Propensi ty to adverse reaction s to drug Active Other - See comments 2016-03 00:00: 00 [facility] VANCOMYC IN DRUG INGREDI Active High Other-Cmnt 2016-03 00:00: 00 [facility] Penicill in Propensi ty to adverse reaction s Active Other - See comments 2015-03 00:00: 00 [facility] PENICILL IN DRUG INGREDI Active Other-Cmnt 2015-03 00:00: 00 [facility] Iodinate d Contrast Media DA Active [place] "INSIDES ON FIRE", HYPERVENTILA MANUEL 2014-03 00:00: 00 [facility] Penicill ins DA Active SV convulsions 2014-03 00:00: 00 [facility] vancomyc in DA Active [place] HIVES, SKIN PEELED OFF, EXTREME RED SKIN 2014-03 00:00: 00 [facility] PENICILL IN Allergy to substanc e Active 03-19 00:00: 00 [facility] Penicill in Penicill in Active Unknown [facility] Vancomyc in Allergy to substanc e Active Severe Other [facility] SULFAMET HOXAZOLE -TRIMETH OPRIM Allergy to substanc e Active [facility] PENICILL INS Allergy to substanc e Active [facility] Vancomyc in Vancomyc in Active Unknown [facility] Social History Social Habit Start Date Stop Date Quantity Comments Source History of Tobacco Use [facility] Sex Assigned At [facility] to SARS-CoV-2 (event) 2021-12-19 00:00:00 2021-12-29 12:30:00 Not sure [facility] Alcohol intake 2021-10-20 00:00:00 2021-10-20 00:00:00 Lifetime non-drinker (finding) [facility] Tobacco use and exposure 2021-05-09 00:00:00 2021-05-09 00:00:00 Smokeless tobacco non-user [facility] Cigarettes smoked current (pack per day) - Reported 2021-05-09 00:00:00 2021-05-09 00:00:00 [facility] Cigarette pack-years 2021-05-09 00:00:00 2021-05-09 00:00:00 [facility] History of Social function 2021-05-09 00:00:00 2021-05-09 00:00:00 [facility] Smoking Status Start Date Stop Date Source Former Smoker [facility] Medications Ordered Medication Name Filled Medication Name Start Date Stop Date Current Medication? Ordering Clinician Indication Dosage Frequency Signature (SIG) Comments Components Source prednisone 10 mg tablet Take 1 tablet 3 times a day by oral route with meal(s) for 10 days. prednisone 10 mg tablet Take 1 tablet 3 times a day by oral route with meal(s) for 10 days. 2023-03 00:00: 00 No 1 TID prednisone 10 mg tablet Take 1 tablet 3 times a day by oral route with meal(s) for 10 days. [facility] phenazopyri dine (PYRIDIUM) 200 mg tablet 10-20 00:00: 00 Yes [id number] 200mg Take 1 tablet by mouth every 8 (eight) hours as needed for Pain. [facility] cephALEXin 500 mg capsule 10-20 00:00: 00 10-28 04:59 :00 No [id number] 500mg Take 1 capsule by mouth in the morning and 1 capsule in the evening. Do all this for 7 days. [facility] metoprolol succinate XL 25 mg 24 hr tablet 09-21 00:00: 00 Yes [id number] 25mg Take 1 tablet by mouth in the morning and 1 tablet in the evening. [facility] amLODIPine 10 mg tablet 05-09 00:00: 00 Yes [id number] 10mg Take 1 tablet by mouth daily. [facility] ALPRAZolam 1 mg tablet 2020-03 00:00: 00 Yes [facility] FENTanyl 50 mcg/hr patch 09-28 00:00: 00 Yes 1{patch } Apply 1 Patch to skin every 72 (seventy-t wo) hours. [facility] cephALEXin (KEFLEX) 500 mg capsule 7 00:00: 00 05-09 00:00 :00 No [id number] 500mg Take 1 capsule by mouth 2 (two) times daily. [facility] topiramate 25 mg tablet 09-09 00:00: 00 Yes [facility] cephALEXin (KEFLEX) 500 mg capsule 5- 00:00: 00 05-09 00:00 :00 No [id number] 500mg Take 1 capsule by mouth 2 (two) times daily. [facility] cephALEXin (KEFLEX) 500 mg capsule 06-04 00:00: 00 05-09 00:00 :00 No [id number] 500mg Take 1 capsule by mouth 2 (two) times daily. [facility] Kenalog (Triamcinol one) Kenalog (Triamcinol one) 3-08 00:00: 00 No 40mg [facility] Bupivicaine [place] Bupivicaine [place] 3-08 00:00: 00 No 2.5mg [facility] Kenalog (Triamcinol one) Kenalog (Triamcinol one) 3-08 00:00: [address] [facility] Bupivicaine [place] Bupivicaine [place] 3 00:00: 00 No 2.5mg [facility] ibuprofen 600 mg tablet 04-08 00:00: 00 Yes [id number] 600mg Take 1 tablet by mouth every 6 (six) hours as needed for Pain (scale 4-6). [facility] Bupivicaine [place] Bupivicaine [place] 2019-03 00:00: 00 No 2.5mg [facility] Kenalog (Triamcinol one) Kenalog (Triamcinol one) 2019-03 00:00: 00 No 40mg [facility] Bupivicaine [place] Bupivicaine [place] 2019-03 230 00:00: 00 No 2.5mg [facility] Kenalog (Triamcinol one) Kenalog (Triamcinol one) 2019-03 2-30 00:00: 00 No 40mg [facility] Nitrofurant oin&Nit. Macrocryst (MACROBID) 100 mg capsule 11-24 00:00: 00 Yes [id number] 100mg Take 1 capsule by mouth as needed for Other (after intecourse ). [facility] Bupivicaine [place] Bupivicaine [place] 10-12 00:00: 00 No 5mL [facility] Kenalog (Triamcinol one) Kenalog (Triamcinol one) 8- 00:00: 00 No 40mg [facility] Bupivicaine [place] Bupivicaine [place] 10-12 00:00: 00 No 5mL [facility] Kenalog (Triamcinol one) Kenalog (Triamcinol one) 8 00:00: 00 No 40mg [facility] Meloxicam Meloxicam 10-12 00:00: 00 11-11 00:00 :00 No Justice Sherman 1 tablet [facility] Estrace Estrace 04-24 00:00: 00 [address] Sherman as directed [facility] Estrace 0.1 MG/GM Estrace 0.1 MG/GM 04-24 00:00: 00 No Estrace 0.1 MG/GM Estrace 0.1 MG/GM Estrace 0.1 MG/GM 04-24 00:00: 00 No Estrace 0.1 MG/GM morpHINE E.R. (MS CONTIN) 30 mg SR tablet 12-06 00:00: 00 05-09 00:00 :00 No [facility] morpHINE I.R. (MSIR) 15 mg tablet 12-06 00:00: 05-09 00:00 :00 Praveena mendiola [facility] methocarbam ol 500 mg tablet TAKE ONE (1) TABLET(S) BY MOUTH TWICE A DAY NEEDED. methocarbam ol 500 mg tablet TAKE ONE (1) TABLET(S) BY MOUTH TWICE A DAY NEEDED. No methocarba mol 500 mg tablet TAKE ONE (1) TABLET(S) BY MOUTH TWICE A DAY NEEDED. [facility] nitroglycer in 0.4 mg sublingual tablet nitroglycer in 0.4 mg sublingual tablet No nitroglyce rin 0.4 mg sublingual tablet [facility] tramadol 50 mg tablet TAKE ONE TABLET BY MOUTH TWICE DAILY NEEDED tramadol 50 mg tablet TAKE ONE TABLET BY MOUTH TWICE DAILY NEEDED No tramadol 50 mg tablet TAKE ONE TABLET BY MOUTH TWICE DAILY NEEDED [facility] albuterol sulfate 2.5 mg/3 mL (0.083 %) solution for nebulizatio n USE IN NEBULIZER ONE VIAL THREE TIMES DAILY NEEDED albuterol sulfate 2.5 mg/3 mL (0.083 %) solution for nebulizatio n USE IN NEBULIZER ONE VIAL THREE TIMES DAILY NEEDED No albuterol sulfate 2.5 mg/3 mL (0.083 %) solution for nebulizati on USE IN NEBULIZER ONE VIAL THREE TIMES DAILY NEEDED [facility] amlodipine 5 mg tablet TAKE 1 TABLET BY MOUTH EVERY DAY amlodipine 5 mg tablet TAKE 1 TABLET BY MOUTH EVERY DAY No amlodipine 5 mg tablet TAKE 1 TABLET BY MOUTH EVERY DAY [facility] clonazepam 1 mg tablet TAKE 1 TABLET BY MOUTH THREE TIMES DAILY clonazepam 1 mg tablet TAKE 1 TABLET BY MOUTH THREE TIMES DAILY No clonazepam 1 mg tablet TAKE 1 TABLET BY MOUTH THREE TIMES DAILY [facility] cyanocobala min (vit B-12) 1,000 mcg/mL injection solution INJECT INTRAMUSCUL NIKUNJ 1 MILLILITER ONCE EVERY MONTH cyanocobala min (vit B-12) 1,000 mcg/mL injection solution INJECT INTRAMUSCUL NIKUNJ 1 MILLILITER ONCE EVERY MONTH No cyanocobal luevano (vit B-12) 1,000 mcg/mL injection solution INJECT INTRAMUSCU LARLY 1 MILLILITER ONCE EVERY MONTH [facility] levofloxaci n 500 mg tablet TAKE ONE TABLET BY MOUTH EVERY DAY FOR 10 DAYS levofloxaci n 500 mg tablet TAKE ONE TABLET BY MOUTH EVERY DAY FOR 10 DAYS No levofloxac in 500 mg tablet TAKE ONE TABLET BY MOUTH EVERY DAY FOR 10 DAYS [facility] butalbital- acetaminoph en-caffeine 50 mg-300 mg-40 mg capsule butalbital- acetaminoph en-caffeine 50 mg-300 mg-40 mg capsule No butalbital -acetamino phen-caffe ine 50 mg-300 mg-40 mg capsule [facility] estradiol 0.01% (0.1 mg/gram) vaginal cream estradiol 0.01% (0.1 mg/gram) vaginal cream No estradiol 0.01% (0.1 mg/gram) vaginal cream [facility] fentanyl 75 mcg/hr transdermal patch APPLY ONE (1) PATCH TO THE SKIN EVERY 72 HOURS. fentanyl 75 mcg/hr transdermal patch APPLY ONE (1) PATCH TO THE SKIN EVERY 72 HOURS. No fentanyl 75 mcg/hr transderma l patch APPLY ONE (1) PATCH TO THE SKIN EVERY 72 HOURS. [facility] gabapentin 300 mg capsule gabapentin 300 mg capsule No gabapentin 300 mg capsule [facility] ondansetron 8 mg disintegrat ing tablet PLACE 1 TABLET ON THE TONGUE AND ALLOW TO DISSOLVE BY MOUTH EVERY 8 HOURS ondansetron 8 mg disintegrat ing tablet PLACE 1 TABLET ON THE TONGUE AND ALLOW TO DISSOLVE BY MOUTH EVERY 8 HOURS No ondansetro n 8 mg disintegra ting tablet PLACE 1 TABLET ON THE TONGUE AND ALLOW TO DISSOLVE BY MOUTH EVERY 8 HOURS [facility] pregabalin 100 mg capsule pregabalin 100 mg capsule No pregabalin 100 mg capsule [facility] Ubrelvy [...] HOURS. [facility] methylpredn isolone 4 mg tablets in a dose pack TAKE DIRECTED PER PACKAGE methylpredn isolone 4 mg tablets in a dose pack TAKE DIRECTED PER PACKAGE No methylpred nisolone 4 mg tablets in a dose pack TAKE DIRECTED PER PACKAGE [facility] acetaminoph en 300 mg-codeine 30 mg tablet TAKE ONE TABLET BY MOUTH EVERY 4 TO 6 HOURS NEEDED FOR PAIN acetaminoph en 300 mg-codeine 30 mg tablet TAKE ONE TABLET BY MOUTH EVERY 4 TO 6 HOURS NEEDED FOR PAIN No acetaminop hen 300 mg-codeine 30 mg tablet TAKE ONE TABLET BY MOUTH EVERY 4 TO 6 HOURS NEEDED FOR PAIN [facility] amitriptyli ne 100 mg tablet TAKE ONE TABLET BY MOUTH AT BEDTIME amitriptyli ne 100 mg tablet TAKE ONE TABLET BY MOUTH AT BEDTIME No amitriptyl ine 100 mg tablet TAKE ONE TABLET BY MOUTH AT BEDTIME [facility] cholecalcif murali (vitamin D3) 1,250 mcg (50,000 unit) capsule TAKE ONE CAPSULE BY MOUTH ONCE WEEKLY cholecalcif murali (vitamin D3) 1,250 mcg (50,000 unit) capsule TAKE ONE CAPSULE BY MOUTH ONCE WEEKLY No cholecalci ferol (vitamin D3) 1,250 mcg (50,000 unit) capsule TAKE ONE CAPSULE BY MOUTH ONCE WEEKLY [facility] ciprofloxac in 0.3 %-dexametha sone 0.1 % ear drops,suspe nsion 4 drops into affected ear Otic Twice a day 7 days ciprofloxac in 0.3 %-dexametha sone 0.1 % ear drops,suspe nsion 4 drops into affected ear Otic Twice a day 7 days No ciprofloxa jennifer 0.3 %-dexameth asone 0.1 % ear drops,susp ension 4 drops into affected ear Otic Twice a day 7 days [facility] ciprofloxac in 500 mg tablet TAKE ONE (1) TABLET(S) BY MOUTH EVERY TWELVE HOURS FOR SEVEN DAYS. ciprofloxac in 500 mg tablet TAKE ONE (1) TABLET(S) BY MOUTH EVERY TWELVE HOURS FOR SEVEN DAYS. No ciprofloxa jennifer 500 mg tablet TAKE ONE (1) TABLET(S) BY MOUTH EVERY TWELVE HOURS FOR SEVEN DAYS. [facility] diazepam 5 mg tablet TAKE ONE TABLET BY MOUTH 30 MINUTES PRIOR TO MRI diazepam 5 mg tablet TAKE ONE TABLET BY MOUTH 30 MINUTES PRIOR TO MRI No diazepam 5 mg tablet TAKE ONE TABLET BY MOUTH 30 MINUTES PRIOR TO MRI [facility] gabapentin 100 mg capsule TAKE ONE CAPSULE BY MOUTH TWICE DAILY gabapentin 100 mg capsule TAKE ONE CAPSULE BY MOUTH TWICE DAILY No gabapentin 100 mg capsule TAKE ONE CAPSULE BY MOUTH TWICE DAILY [facility] indomethaci n 50 mg capsule TAKE ONE CAPSULE BY MOUTH THREE TIMES DAILY NEEDED WITH FOOD OR MILK indomethaci n 50 mg capsule TAKE ONE CAPSULE BY MOUTH THREE TIMES DAILY NEEDED WITH FOOD OR MILK No indomethac in 50 mg capsule TAKE ONE CAPSULE BY MOUTH THREE TIMES DAILY NEEDED WITH FOOD OR MILK [facility] ketorolac 10 mg tablet TAKE ONE TABLET BY MOUTH EVERY DAY FOR 7 DAYS ketorolac 10 mg tablet TAKE ONE TABLET BY MOUTH EVERY DAY FOR 7 DAYS No ketorolac 10 mg tablet TAKE ONE TABLET BY MOUTH EVERY DAY FOR 7 DAYS [facility] lidocaine 5 % topical patch TOPICALLY APPLY ONE PATCH TO SKIN AND REMOVE AFTER 12 HOURS lidocaine 5 % topical patch TOPICALLY APPLY ONE PATCH TO SKIN AND REMOVE AFTER 12 HOURS No lidocaine 5 % topical patch TOPICALLY APPLY ONE PATCH TO SKIN AND REMOVE AFTER 12 HOURS [facility] lorazepam 0.5 mg tablet Take 1 hour before MRI scan. May take 1 more at time of scan if still anxious. lorazepam 0.5 mg tablet Take 1 hour before MRI scan. May take 1 more at time of scan if still anxious. No lorazepam 0.5 mg tablet Take 1 hour before MRI scan. May take 1 more at time of scan if still anxious. [facility] prednisone 2.5 mg tablet TAKE ONE TABLET BY MOUTH EVERY DAY prednisone 2.5 mg tablet TAKE ONE TABLET BY MOUTH EVERY DAY No prednisone 2.5 mg tablet TAKE ONE TABLET BY MOUTH EVERY DAY [facility] promethazin e-DM 6.25 mg-15 mg/5 mL oral syrup TAKE FIVE MILLILITERS BY MOUTH EVERY 6 HOURS NEEDED promethazin e-DM 6.25 mg-15 mg/5 mL oral syrup TAKE FIVE MILLILITERS BY MOUTH EVERY 6 HOURS NEEDED No promethazi ne-DM 6.25 mg-15 mg/5 mL oral syrup TAKE FIVE MILLILITER S BY MOUTH EVERY 6 HOURS NEEDED [facility] triamcinolo ne acetonide 0.1 % topical ointment APPLY TO THE AFFECTED AREA(S) TWICE DAILY FOR 7 DAYS triamcinolo ne acetonide 0.1 % topical ointment APPLY TO THE AFFECTED AREA(S) TWICE DAILY FOR 7 DAYS No triamcinol one acetonide 0.1 % topical ointment APPLY TO THE AFFECTED AREA(S) TWICE DAILY FOR 7 DAYS [facility] ibuprofen 800 mg tablet Take 1 tablet 3 times a day by oral route as needed, for pain. ibuprofen 800 mg tablet Take 1 tablet 3 times a day by oral route as needed, for pain. No 1 TID ibuprofen 800 mg tablet Take 1 tablet 3 times a day by oral route as needed, for pain. [facility] Ciprofloxac in HCl Ciprofloxac in HCl Yes Justice Sherman not defined [facility] Nitrofurant oin Macrocrysta l Nitrofurant oin Macrocrysta l Yes Justice Sherman 1 capsule with food or milk [facility] Nitrofurant oin Monohyd Macro Nitrofurant oin Monohyd Macro Yes Justice Sherman not defined [facility] Fluticasone Propionate Fluticasone Propionate Yes Justice Sherman not defined [facility] Topiramate Topiramate Yes Justice Sherman not defined [facility] Levofloxaci n Levofloxaci n Yes Justice Sherman not defined [facility] Cyclobenzap rine HCl Cyclobenzap rine HCl Yes Justice Sherman not defined [facility] Robaxin-750 Robaxin-750 Yes Andry Sherman 1 tablet [facility] Tamsulosin HCl Tamsulosin HCl Yes Justice Sherman not defined [facility] Cephalexin Cephalexin Yes [facility] Sherman not defined [facility] Tizanidine HCl Tizanidine HCl Yes [facility] Sherman not defined [facility] Alprazolam Alprazolam Yes [facility] Sherman not defined [facility] Tramadol HCl Tramadol HCl Yes [facility] not defined [facility] Clonazepam Clonazepam Yes [facility] Sherman not defined [facility] Fentanyl Fentanyl Yes Justice Sherman 1 patch to skin [facility] Topiramate Topiramate No Topiramate Nitrofurant [...] QD Nitrofuran toin Macrocryst al 100 mg Immunizations Ordered Immunization Name Filled Immunization Name Date Status Comments Source SARS-COV-2 COVID-19 MODERNA VACCINE 2020-07-07 00:00:00 Completed [facility] SARS-COV-2 COVID-19 MODERNA VACCINE 2020-07-07 00:00:00 Completed [facility] SARS-COV-2 COVID-19 MODERNA VACCINE 2020-07-07 00:00:00 Completed [facility] SARS-COV-2 COVID-19 MODERNA 12+ YRS VACCINE 2020-07-07 00:00:00 Completed [facility] SARS-COV-2 COVID-19 MODERNA 12+ YRS VACCINE 2020-07-07 00:00:00 Completed [facility] SARS-COV-2 COVID-19 MODERNA 12+ YRS VACCINE 2020-07-07 00:00:00 Completed [facility] SARS-COV-2 COVID-19 MODERNA 12+ YRS VACCINE 2020-07-07 00:00:00 Completed [facility] SARS-COV-2 COVID-19 MODERNA 12+ YRS VACCINE 2020-07-07 00:00:00 Completed [facility] SARS-COV-2 COVID-19 MODERNA 12+ YRS VACCINE 2020-07-07 00:00:00 Completed [facility] SARS-COV-2 COVID-19 MODERNA 12+ YRS VACCINE 2020-07-07 00:00:00 Completed [facility] SARS-COV-2 COVID-19 MODERNA 12+ YRS VACCINE 2020-07-07 00:00:00 Completed [facility] SARS-COV-2 COVID-19 MODERNA 12+ YRS VACCINE 2020-07-07 00:00:00 Completed [facility] SARS-COV-2 COVID-19 MODERNA VACCINE 2020-06-09 00:00:00 Completed [facility] SARS-COV-2 COVID-19 MODERNA VACCINE 2020-06-09 00:00:00 Completed [facility] SARS-COV-2 COVID-19 MODERNA VACCINE 2020-06-09 00:00:00 Completed [facility] SARS-COV-2 COVID-19 MODERNA 12+ YRS VACCINE 2020-06-09 00:00:00 Completed [facility] SARS-COV-2 COVID-19 MODERNA 12+ YRS VACCINE 2020-06-09 00:00:00 Completed [facility] SARS-COV-2 COVID-19 MODERNA 12+ YRS VACCINE 2020-06-09 00:00:00 Completed [facility] SARS-COV-2 COVID-19 MODERNA 12+ YRS VACCINE 2020-06-09 00:00:00 Completed [facility] SARS-COV-2 COVID-19 MODERNA 12+ YRS VACCINE 2020-06-09 00:00:00 Completed [facility] SARS-COV-2 COVID-19 MODERNA 12+ YRS VACCINE 2020-06-09 00:00:00 Completed [facility] SARS-COV-2 COVID-19 MODERNA 12+ YRS VACCINE 2020-06-09 00:00:00 Completed [facility] SARS-COV-2 COVID-19 MODERNA 12+ YRS VACCINE 2020-06-09 00:00:00 Completed [facility] SARS-COV-2 COVID-19 MODERNA 12+ YRS VACCINE 2020-06-09 00:00:00 Completed [facility] SARS-COV-2 COVID-19 MODERNA 12+ YRS VACCINE Unknown Completed [facility] SARS-COV-2 COVID-19 MODERNA 12+ YRS VACCINE Unknown Completed [facility] SARS-COV-2 COVID-19 MODERNA 12+ YRS VACCINE Unknown Completed [facility] SARS-COV-2 COVID-19 MODERNA 12+ YRS VACCINE Unknown Completed [facility] SARS-COV-2 COVID-19 MODERNA 12+ YRS VACCINE Unknown Completed [facility] SARS-COV-2 COVID-19 MODERNA 12+ YRS VACCINE Unknown Completed [facility] Vital Signs Vital Name Observation Time Observation Value Comments S ource Height 2024-03-27 00:00:00 68 [in_i] [facility] Height 2024-02-26 00:00:00 68 [in_i] [facility] Body Weight 2024-02-26 00:00:00 165 [lb_av] [facility] BMI (Body Mass Index) 2024-02-26 00:00:00 25.1 kg/m2 [facility] Height 2023-04-04 00:00:00 68 [in_i] Azale a [...] Systems Heart rate 2021-12-29 17:53:00 74 /min [facility] Body temperature 2021-12-29 17:53:00 36.44 Sonam [facility] Respiratory rate 2021-12-29 17:53:00 18 /min [facility] Body height 2021-12-29 17:53:00 172.7 cm per pt [facility] Body weight 2021-12-29 17:53:00 81.965 kg [facility] BMI 2021-12-29 17:53:00 27.48 kg/m2 [facility] Oxygen saturation in Arterial blood [...] Systems Heart rate 2021-10-20 15:50:00 82 /[facility] 2021-10-20 15:50:00 36.89 Sonam [facility] Respiratory rate 2021-10-20 15:50:00 17 /min [facility] Body height 2021-10-20 15:50:00 172.7 cm [facility] Body weight 2021-10-20 15:50:00 77.565 kg [facility] BMI 2021-10-20 15:50:00 26.00 kg/m2 [facility] Oxygen saturation in Arterial blood by Pulse oximetry 2021-10-20 15:50:00 98 /min [facility] height 2021-09-06 08:30:00 68 [in_i] Commo n [facility] weight 2021-09-06 08:30:00 173.3 [lb_av] Co mmon [facility] bmi 2021-09-06 08:30:00 26.35 kg/m2 Comm on [facility] blood pressure systolic 2021-09-06 08:30:00 144 mm[Hg] [facility] blood pressure diastolic 2021-09-06 08:30:00 84 mm[Hg] [facility] weight 2021-07-07 13:30:00 176 [lb_av] Comm on [facility] temperature 2021-07-07 13:30:00 97.2 [degF] Com mon [facility] bmi 2021-07-07 13:30:00 26.76 kg/m2 Comm on [facility] blood pressure systolic 2021-07-07 13:30:00 148 mm[Hg] [facility] blood pressure diastolic 2021-07-07 13:30:00 73 mm[Hg] [facility] height 2021-07-07 13:30:00 68 [in_i] Commo n [facility] height 2021-06-07 13:00:00 68 [in_i] Commo n [facility] weight 2021-06-07 13:00:00 176 [lb_av] Comm on [facility] temperature 2021-06-07 13:00:00 96.8 [degF] Com mon [facility] bmi 2021-06-07 13:00:00 26.76 kg/m2 Comm on [facility] blood pressure systolic 2021-06-07 13:00:00 124 mm[Hg] [facility] blood pressure diastolic 2021-06-07 13:00:00 76 mm[Hg] [facility] Systolic blood pressure 2021-05-09 16:22:00 153 mm[Hg] [facility] Diastolic blood pressure 2021-05-09 16:22:00 73 mm[Hg] [facility] Heart rate 2021-05-09 16:22:00 69 /min [facility] Respiratory rate 2021-05-09 16:21:00 19 /min [facility] Body height 2021-05-09 16:21:00 172.7 cm [facility] Body weight 2021-05-09 16:21:00 81.285 kg [facility] BMI 2021-05-09 16:21:00 27.25 kg/m2 [facility] Oxygen saturation in Arterial blood by Pulse oximetry 2021-05-09 16:21:00 100 /min [facility] Procedures Procedure Date / Time Performed Performing Clinician Source XR, hand, 3 or more view 2024-03-27 00:00:00 [facility] electromyogram + nerve conduction study 2024-02-26 00:00:00 [facility] XR, femur, 2 or more view 2023-07-18 00:00:00 [facility] DEXA PERIPHERAL (FOREARM) 2023-05-18 16:42:56 Requisit ion, Paper [facility] DEXA AXIAL (HIP AND SPINE) 2023-05-18 16:34:00 Fartun Clark [facility] CONSENT/REFUSAL FOR DIAGNOSIS AND TREATMENT 2023-05-18 15:41:16 Doctor Unassigned, [place] [facility] ASSIGNMENT OF BENEFITS 2023-05-18 15:41:06 Docto r Unassigned, [place] [facility] XR, femur, 2 or more view 2023-05-16 00:00:00 [facility] MEDICAL RELEASE/CLEARANCE FORMS 2023-04-05 06:01:00 Doctor Unassigned, [place] [facility] XR, femur, 2 or more view 2023-04-04 [...] 2022-02-15 00:00:00 [facility] [id number] 2022-01-20 00:00:00 MATVA.01 [facility] [id number] 2022-01-20 00:00:00 MATVA.01 [facility] [id number] 2022-01-19 00:00:00 BRIMA.01 [facility] [id number] 2022-01-19 00:00:00 MATVA.01 [facility] [id number] 2022-01-19 00:00:00 MATVA.01 [facility] [id number] 2022-01-19 00:00:00 MATVA.01 [facility] Revise Hip Joint Replacement 2022-01-19 00:00:00 [facility] ASSIGNMENT OF BENEFITS 2021-12-29 17:31:06 Sintia r Unassigned, [place] [facility] MEDICAL RELEASE/CLEARANCE FORMS 2021-12-14 05:01:00 Doctor Unassigned, [place] [facility] NOTICE OF BILLING PRACTICES FOR MEDICARE PATIENTS 2021-12-08 14:33:50 Doctor Unassigned, [place] [facility] MEDICAL RELEASE/CLEARANCE FORMS 2021-11-25 05:01:00 Doctor Unassigned, [place] [facility] XR, hip + pelvis, unilateral, 2 or 3 view 2021-11-02 00:00:00 [facility] POCT URINALYSIS 2021-10-20 15:58:00 Kelly Avalos [facility] HB ECG ROUTINE & RHYTHM STRIP 2021-05-09 16:14:24 Maricarmen Nguyen [facility] EXTERNAL FIT DNA 2020-02-02 14:20:00 Doctor Unas signed, [place] [facility] Total Replacement of Left Hip Joint [facility] Hip Replacement [facility] Hip Surgery [facility] Hysterectomy [facility] Tonsillectomy [facility] Encounters Start Date/Time End Date/Time Encounter Type Admission Type Attending [facility] Care Facility Care Department Encounter ID Source 2024-04-10 10:29:00 Outpatient ColePatric [facility] [id number] [facility] 2023-10-29 14:08:00 Outpatient Patric Cole [facility] [id number] [facility] 2023-07-09 08:19:00 Outpatient Patric Cole [facility] [id number] [facility] 2021-10-10 12:15:00 Outpatient Patric Cole [facility] [id number] [facility] 2021-09-06 08:26:01 Outpatient Patric Cole [facility] [id number] [facility] 2021-06-07 14:54:02 Outpatient Cole, Patric [facility] [id number] [facility] 2021-05-23 15:27:02 Outpatient Cole, Patric [facility] [id number] [facility] 2021-04-06 12:20:03 Outpatient [facility] [id number] [facility] 2021-04-06 11:34:20 Outpatient Cole, [facility] [id number] [facility] 2021-03-07 10:45:00 Inpatient Andreas Rodriguez [facility] [id number] [facility] 2021-01-12 13:28:28 Outpatient [facility] [id number] [facility] 2021-01-10 11:46:45 Outpatient UMESHCANDIE ROBERTSSIMONAAlexa [facility] [id number] [facility] 2021-01-08 23:01:54 Emergency [facility] [id number] [facility] 2021-01-08 20:27:01 Emergency [facility] [id number] [facility] 2024-04-09 09:10:00 2024-04-09 09:10:00 Outpatient Van Matos [facility] [id number] [facility] 2024-03-27 00:00:00 2024-03-27 00:00:00 Tri Connolly MD: [address] [place] [address] , Ph. [phone] [facility] [place] [facility] [place] [facility] [id number] [facility] 2024-02-26 00:00:00 2024-02-26 00:00:00 Edmund Kumar MD: [address] [place] [address] , Ph. [phone] [place] [facility] [place] [facility] [place] [id number] [facility] 2023-07-18 00:00:00 2023-07-18 00:00:00 Vineet Weeks MD: [address] [place] [address] , Ph. [phone] [facility] [place] [facility] [id number] [facility] 2023-06-20 00:00:00 2023-06-20 00:00:00 Outpatient FOG_Osiel _Libby_ [facility] [id number] [facility] 2023-06-19 00:00:00 2023-06-19 00:00:00 Telephone Chacon, Stephy Keita [facility] [id number] [facility] 2023-05-18 10:28:07 2023-05-18 23:59:00 Hospital Encounter Radiology [facility] [id number] [facility] 2023-05-18 09:41:28 2023-05-18 10:27:00 Outpatient R RADIOLOGY [facility] [id number] [facility] 2023-05-18 09:41:28 2023-05-18 10:27:00 Hospital Encounter Radiology [facility] [id number] [facility] 2023-05-18 00:00:00 2023-05-18 00:00:00 Orders Only Doctor Unassigned, [place] [facility] [id number] [facility] 2023-05-17 00:00:00 2023-05-17 00:00:00 Outpatient FOG_Mathdanilo _Domitila AOSM AO [id number] [facility] 2023-05-16 00:00:00 2023-05-16 00:00:00 Outpatient FOG_Osiel _Domitila AOSM AO [id number] [facility] 2023-05-16 00:00:00 2023-05-16 00:00:00 Vineet Weeks MD: [address] [place] [address] , Ph. [phone] [facility] [place] [facility] [place] [facility] [id number] [facility] 2023-05-13 00:00:00 2023-05-13 00:00:00 Outpatient FOG_Osiel [place] AOSM AO [id number] [facility] 2023-05-10 00:00:00 2023-05-10 00:00:00 Outpatient FOG_Osiel [place] AO AO [id number] [facility] 2023-05-02 00:00:00 2023-05-02 00:00:00 Vineet Weeks MD: [address] [place] [address] , Ph. [phone] [facility] [place] [facility] [place] [facility] [id number] [facility] 2023-04-23 00:00:00 2023-04-23 00:00:00 Outpatient FOG_Osiel De [place] AOSM AO [id number] [facility] 2023-04-19 06:14:00 2023-04-20 15:05:00 Inpatient Vineet Roe [facility]G [id number] [facility] 2023-04-19 00:00:00 2023-04-19 00:00:00 Vineet Weeks MD: [address] [place] [address] , Ph. [phone] [facility] [place] [facility] [place] [facility] [id number] [facility] 2023-04-12 00:00:00 2023-04-12 00:00:00 Outpatient FOG_Osiel _Domitila AOSM AO [id number] [facility] 2023-04-05 00:00:00 2023-04-05 00:00:00 Tele[facility] [id number] [facility] 2023-04-05 00:00:00 2023-04-05 00:00:00 Orders Only Doctor Unassigned, [place] [facility] [id number] [facility] 2023-04-04 00:00:00 2023-04-04 00:00:00 Fabricio Cartagena MD: [address] [place] [address] , Ph. [phone] [place] [facility] [place] [facility] [id number] [facility] 2023-03-26 00:00:00 2023-03-26 00:00:00 Outpatient FOG_Osiel _Domitila AOSM AO [id number] [facility] 2023-03-22 00:00:00 2023-03-22 00:00:00 Outpatient FOG_Osiel _Domitila AOSM AO [id number] [facility] 2023-01-24 00:00:00 2023-01-24 00:00:00 Outpatient FOG_Osiel _Libby_ AOSM AO [id number] [facility] 2023-01-08 00:00:00 2023-01-08 00:00:00 Outpatient GC_GCBZW_Toni sandoval_Emelyn [facility] [id number] [facility] 2023-01-07 00:00:00 2023-01-07 00:00:00 Outpatient GC_GCBZW_Ka diyala_S [facility] [id number] [facility] 2022-12-28 00:00:00 2022-12-28 00:00:00 Outpatient FOG_Mathews _Vasil_MD AOSM AOSM [id number] [facility] 2022-12-28 00:00:00 2022-12-28 00:00:00 Outpatient FOG_Mathews _Vasil_MD AOSM AOSM [id number] [facility] 2022-12-11 00:00:00 2022-12-11 00:00:00 Outpatient FOG_Mathews _Vasil_MD AOSM AOSM [id number] [facility] 2022-12-11 00:00:00 2022-12-11 00:00:00 Outpatient FOG_Mathews _Vasil_MD AOSM AOSM [id number] [facility] 2022-12-11 00:00:00 2022-12-11 00:00:00 Outpatient FOG_Mathews _Vasil_MD AOSM AOSM [id number] [facility] 2022-09-11 00:00:00 2022-09-11 00:00:00 Outpatient FOG_Mathews _Vasil_MD AOSM AOSM [id number] [facility] 2022-08-18 00:00:00 2022-08-18 00:00:00 Outpatient FOG_Mathews _Vasil_MD AOSM AOSM [id number] [facility] 2022-08-15 00:00:00 2022-08-15 00:00:00 Outpatient FOG_Mathews _Vasil_MD AOSM AOSM [id number] [facility] 2022-08-08 00:00:00 2022-08-08 00:00:00 Outpatient FOG_Mathews _Vasil_MD AOSM AOSM [id number] [facility] 2022-08-08 00:00:00 2022-08-08 00:00:00 Outpatient FOG_Mathews _Vasil_MD AOSM AOSM [id number] [facility] 2022-08-08 00:00:00 2022-08-08 00:00:00 Outpatient FOG_Mathews _Vasil_MD AOSM AOSM [id number] [facility] 2022-07-29 00:00:00 2022-07-29 00:00:00 Outpatient FOG_Mathews _Vasil_MD AOSM AOSM [id number] [facility] 2022-07-19 00:00:00 2022-07-19 00:00:00 Outpatient FOG_Mathews _Vasil_MD AOSM AOSM [id number] [facility] 2022-07-19 00:00:00 2022-07-19 00:00:00 Outpatient FOG_Mathews _Vasil_MD AOSM AOSM [id number] [facility] 2022-07-11 00:00:00 2022-07-11 00:00:00 Outpatient FOG_Mathews _Vasil_MD AOSM AOSM [id number] [facility] 2022-06-16 00:00:00 2022-06-16 00:00:00 Outpatient FOG_Mathews _Vasil_MD AOSM AOSM [id number] [facility] 2022-06-14 00:00:00 2022-06-14 00:00:00 Fabricio Cartagena MD: [address] [place] [address] , Ph. [phone] [facility] [place] [facility] [place] [facility] [id number] [facility] 2022-06-10 00:00:00 2022-06-10 00:00:00 Outpatient FOG_Mathews _Vasil_MD AOSM AOSM [id number] [facility] 2022-06-10 00:00:00 2022-06-10 00:00:00 Outpatient FOG_Mathews _Vasil_MD AOSM AOSM [id number] [facility] 2022-06-10 00:00:00 2022-06-10 00:00:00 Outpatient FOG_Mathews _Vasil_MD AOSM AOSM [id number] [facility] 2022-05-30 00:00:00 2022-05-30 00:00:00 Outpatient FOG_Mathews _Vasil_MD AOSM AOSM [id number] [facility] 2022-05-12 00:00:00 2022-05-12 00:00:00 Outpatient FOG_Mathews _Vasil_MD AOSM AOSM [id number] [facility] 2022-05-08 00:00:00 2022-05-08 00:00:00 Outpatient FOG_Mathews _Vasil_MD AOSM AOSM [id number] [facility] 2022-05-08 00:00:00 2022-05-08 00:00:00 Outpatient FOG_Mathews _Vasil_MD AOSM AOSM [id number] [facility] 2022-05-03 00:00:00 2022-05-03 00:00:00 Outpatient FOG_Mathews _Vasil_MD AOSM AOSM [id number] [facility] 2022-05-02 00:00:00 2022-05-02 00:00:00 Outpatient FOG_Mathews _Vasil_MD AOSM AOSM [id number] [facility] 2022-04-28 00:00:00 2022-04-28 00:00:00 Vineet Weeks MD: [address] [place] [address] , Ph. [phone] [facility] [place] [facility] [place] [facility] [id number] [facility] 2022-04-19 00:00:00 2022-04-19 00:00:00 Outpatient FOG_Mathews _Vasil_MD AOSM AO [id number] [facility] 2022-04-19 00:00:00 2022-04-19 00:00:00 Outpatient FOG_Mathews _Vasil_MD AOSM AOSM [id number] [facility] 2022-04-19 00:00:00 2022-04-19 00:00:00 Outpatient FOG_Mathews _Vasil_ AOSM AO [id number] [facility] 2022-04-19 00:00:00 2022-04-19 00:00:00 Outpatient FOG_Mathews _Vasil_MD AOSM AO [id number] [facility] 2022-04-11 10:00:00 2022-04-11 10:00:00 Outpatient Evaristo NGUYEN FAZALBRODIE [facility] [id number] [facility] 2022-03-15 00:00:00 2022-03-15 00:00:00 Outpatient FOG_Mathews _Vasil_ AOSM AO [id number] [facility] 2022-03-15 00:00:00 2022-03-15 00:00:00 Fabricio Cartagena MD: [address] [place] [address] , Ph. [phone] [facility] [place] [facility] [place] [facility] [id number] [facility] 2022-03-06 00:00:00 2022-03-06 00:00:00 Outpatient FOG_Mathews _Vasil_ AOSM AOSM [id number] [facility] 2022-03-06 00:00:00 2022-03-06 00:00:00 Outpatient FOG_Mathews _Vasil_MD AOSM AOSM [id number] [facility] 2022-03-06 00:00:00 2022-03-06 00:00:00 Outpatient FOG_Mathews _Vasil_MD AOSM AOSM [id number] [facility] 2022-02-17 00:00:00 2022-02-17 00:00:00 Outpatient FOG_Mathews _Vasil_MD AOSM AOSM [id number] [facility] 2022-02-15 00:00:00 2022-02-15 00:00:00 Outpatient FOG_Mathews _Vasil_MD AOSM AOSM [id number] [facility] 2022-02-15 00:00:00 2022-02-15 00:00:00 Fabricio Cartagena MD: [address] [place] [address] , Ph. [phone] [facility] [place] [facility] [place] - [facility] [id number] [facility] 2022-02-07 00:00:00 2022-02-07 00:00:00 Outpatient FOG_Mathews _Vasil_MD AOSM AOSM [id number] [facility] 2022-02-06 00:00:00 2022-02-06 00:00:00 Outpatient FOG_[facility] _Vasil_MD AOSM AOSM [id number] [facility] 2022-01-31 00:00:00 2022-01-31 00:00:00 Outpatient FOG_[facility] _Vasil_MD AOSM AOSM [id number] [facility] 2022-01-26 00:00:00 2022-01-26 00:00:00 Outpatient FOG_[facility] _Vasil_MD AOSM AOSM [id number] [facility] 2022-01-19 08:01:00 2022-01-24 18:53:00 Inpatient EL Fabricio Cartagena [facility] [id number] [facility] 2022-01-24 00:00:00 2022-01-24 00:00:00 Outpatient FOG_Osiel De La Vega AO AO [id number] [facility] 2022-01-23 00:00:00 2022-01-23 00:00:00 Outpatient FOG_Osiel De La [place]ega AO AO [id number] [facility] 2022-01-19 00:00:00 2022-01-19 00:00:00 Fabricio Cartagena MD: [address] [place] [address] , Ph. [phone] [facility] [place] [facility] [id number] [facility] 2021-12-29 13:00:00 2021-12-29 16:09:11 [facility] [id number] 2021-12-29 13:00:00 2021-12-29 13:20:00 [id number] [facility] 2021-12-29 00:00:00 2021-12-29 00:00:00 Orders Only Doctor Unassigned, [place] [facility] 1..[id number] [facility] 2021-12-22 00:00:00 2021-12-22 00:00:00 Outpatient FOG_Osiel De La Vega AO AO [id number] [facility] 2021-12-16 00:00:00 2021-12-16 00:00:00 Outpatient [place] _[place] [place] [facility] [id number] [facility] 2021-12-15 00:00:00 2021-12-15 00:00:00 [facility] 1.2.840.114 350.1.13.10 4.2.7.2.686 [id number] [facility] 2021-12-14 00:00:00 2021-12-14 00:00:00 [facility] 1.2.840.114 350.1.13.10 4.2.7.2.686 [id number] [facility] 2021-12-14 00:00:00 2021-12-14 00:00:00 Orders Only Doctor Unassigned, [place] [facility] 1.2840.114 350.1.13.10 4.2.7.2.686 [id number] [facility] 2021-12-13 00:00:00 2021-12-13 00:00:00 [facility] 1.2.840.114 350.1.13.10 4.2.7.2.686 [id number] [id number] [facility] 2021-12-08 09:33:57 2021-12-08 23:59:00 [facility] [id number] [facility] 2021-12-08 00:00:00 2021-12-08 00:00:00 Orders Only Doctor Unassigned, [place] [facility] 1.2840.114 350.1.13.10 4.2.7.2.686 [id number] [id number] [facility] 2021-12-02 16:09:00 2021-12-02 16:09:00 Outpatient Fabricio Cardoza HCACL LABO [id number] [facility] 2021-12-02 16:09:00 2021-12-02 16:09:00 Outpatient Fabricio Cartagena HCACL LABO [id number] 81 [facility] 2021-12-02 10:27:00 2021-12-02 10:27:00 Outpatient Fabricio Cardoza HCATO RADI [id number] [facility] 2021-12-02 10:27:00 2021-12-02 10:27:00 Outpatient Fabricio Cardoza HCATO RADI [id number] [facility] 2021-11-25 00:00:00 2021-11-25 00:00:00 Telephone [facility]armen [facility].2.840.114 350.1.13.10 4.2.7.2.686 [id number] [facility] 2021-11-25 00:00:00 2021-11-25 00:00:00 Orders Only Doctor Unassigned, [place] [address]2.840.114 350.1.13.10 4.2.7.2.686 [id number] [id number] [facility] 2021-11-24 00:00:00 2021-11-24 00:00:00 Outpatient [place]_Osiel _Libby_ AOSM AOSM [id number] [facility] 2021-11-21 16:22:00 2021-11-21 16:22:00 Outpatient Fabricio Cardoza HCACL LABO [id number] 87 [facility] 2021-11-21 09:00:00 2021-11-21 09:01:00 Outpatient Fabricio Cardoza HCATO 3DAY [id number] [facility] 2021-11-11 00:00:00 2021-11-11 00:00:00 Outpatient FOG_Osiel _Libby_ AOSM AO [id number] [facility] 2021-11-02 00:00:00 2021-11-02 00:00:00 Outpatient FOG_Osiel _Libby_ AOSM AO [id number] [facility] 2021-11-02 00:00:00 2021-11-02 00:00:00 Fabricio Cartagena MD: [id number] [place] [address] , Ph. [id number] [facility] [place] [facility] [place] [facility] FOG_Ofc [facility] [id number] [facility] 2021-11-02 00:00:00 2021-11-02 00:00:00 Outpatient Fabricio Cartagena AO [id number] 2021-10-20 11:00:00 2021-10-20 11:20:08 Outpatient R DES MAYEN [facility] [id number] [facility] 2021-10-20 11:00:00 2021-10-20 11:20:00 Urgent Care Des Mayen [facility] 1.2.840.114 350.1.13.10 4.2.7.2.686 [id number] [facility] 2021-09-28 00:00:00 2021-09-28 00:00:00 Outpatient FOG_Osiel _Libby_ AO AO [id number] [facility] 2021-09-21 00:00:00 2021-09-21 00:00:00 Telephone [facility]armen [facility] BU[facility] 1.2.840.114 350.1.13.10 4.2.7.2.686 [id number] [facility] 2021-09-06 00:00:00 2021-09-06 00:00:00 OFFICE VISIT ESTAB PT LEVEL 4 STLMLC STLMLC [id number] [facility] 2021-07-13 00:00:00 2021-07-13 00:00:00 (TEL) STLMLC STLMLC [id number] [facility] 2021-07-07 00:00:00 2021-07-07 00:00:00 Postop visit STLMLC STLMLC [id number] [facility] 2021-07-04 00:00:00 2021-07-04 00:00:00 (TEL) STLMLC STLMLC [id number] [facility] 2021-06-23 00:00:00 2021-06-23 00:00:00 (TEL) STLMLC STLMLC [id number] [facility] 2021-06-08 09:00:00 2021-06-08 09:00:00 Outpatient MARICARMEN SANDOVAL [facility] [id number] [facility] 2021-06-07 10:00:00 2021-06-07 10:00:00 Outpatient R MARICARMEN NGUYEN [facility] [id number] [facility] 2021-06-07 10:00:00 2021-06-07 10:00:00 Outpatient R MARICARMEN NGUYEN [facility] [id number] [facility] 2021-06-07 00:00:00 2021-06-07 00:00:00 NON-BILLAB LE VISIT STLMLC STLMLC [id number] [facility] 2021-06-06 10:00:00 2021-06-06 10:00:00 Outpatient R [facility] [id number] [facility] 2021-05-09 09:40:00 2021-05-09 10:48:25 Outpatient R MARICARMEN NGUYEN [facility] [id number] [facility] 2021-05-09 09:40:00 2021-05-09 10:48:25 Office Visit Patrick, [facility] BUILDING 1..840.114 350.1.13.10 4.2.7.2.686 [id number] [facility] 2021-05-09 09:40:00 2021-05-09 10:48:25 Outpatient R PATRICK [facility] [id number] [facility] 2021-05-09 09:40:00 2021-05-09 10:48:25 [facility] [id number] [facility] 2021-05-09 00:00:00 2021-05-09 00:00:00 Orders Only Doctor Unassigned, [place] [facility] 1..840.114 350.1.13.10 4.2.7.2.686 [id number] [facility] 2021-04-11 08:06:01 2021-04-11 23:59:00 Outpatient R SHANNAN ROY [facility] [id number] [facility] 2021-04-11 08:00:00 2021-04-11 23:59:00 Hospital Encounter KirillShannan [facility] 1.2.840.114 350.1.13.10 4.2.7.2.686 [id number] [facility] 2021-04-04 00:00:00 2021-04-04 00:00:00 Outpatient R SHANNAN ROY [facility] [id number] [facility] 2021-03-29 11:00:00 2021-03-29 11:00:00 Outpatient R MARCK HANNA OGECHUKWU [facility] [id number] [facility] 2021-03-25 11:00:00 2021-03-25 11:50:59 [facility] [id number] [facility] 2021-03-25 11:00:00 2021-03-25 11:50:59 Office Visit Shannan Roy [facility] 1.2840.114 350.1.13.10 4.2.7.2.686 [id number] [facility] 2021-03-25 11:00:00 2021-03-25 11:50:59 Outpatient R SHANANN ROY [facility] [id number] [facility] 2021-03-25 00:00:00 2021-03-25 00:00:00 Orders Only Doctor Unassigned, [place] [facility] 1.20.114 350.1.13.10 4.2.7.2.686 [id number] [facility] 2021-03-21 07:45:00 2021-03-21 08:00:00 Pig Sticker Visit Pob, Adc Lab [facility] 1.2840.114 350.1.13.10 4.2.7.2.686 [id number] [facility] 2021-03-21 07:45:00 2021-03-21 07:45:00 Outpatient R SHANNAN ROY [facility] [id number] [facility] 2021-02-18 10:00:00 2021-02-18 10:00:00 Outpatient R [facility] [id number] [facility] 2021-02-17 00:00:00 2021-02-17 00:00:00 [facility] 1.284.114 350.1.13.10 4.2.7.2.686 [id number] [facility] 2021-02-14 00:00:00 2021-02-14 00:00:00 Orders Only Doctor Unassigned, [place] [facility] 1.2840.114 350.1.13.10 4.2.7.2.686 [id number] [facility] 2021-02-08 00:00:00 2021-02-08 00:00:00 Telephone Shannan Roy [facility] BUILDING 1.2.840.114 350.1.13.10 4.2.7.2.686 [id number] [facility] 2021-01-10 00:00:00 2021-01-10 00:00:00 [facility] 1.2.840.114 350.1.13.10 4.2.7.2.686 [id number] [facility] 2021-01-07 10:00:00 2021-01-07 10:27:04 [facility] [id number] [facility] 2021-01-07 09:56:23 2021-01-07 10:27:04 [facility] 1.2.840.114 350.1.13.10 4.2.7.2.686 [id number] [facility] 2021-01-07 10:00:00 2021-01-07 10:00:00 Outpatient R SHANNAN ROY [facility] [id number] [facility] 2021-01-03 00:00:00 2021-01-03 00:00:00 Telephone Shannan Roy [facility] Medical Office Building 1.2.840.114 350.1.13.10 4.2.7.2.686 [id number] [facility] 2021-01-03 00:00:00 2021-01-03 00:00:00 [facility] 1.2.840.114 350.1.13.10 4.2.7.2.686 [id number] [facility] 2020-12-30 08:40:00 2020-12-30 23:59:00 Hospital Encounter Radiology [facility] 1.2.840.114 350.1.13.10 4.2.7.2.686 [id number] [facility] 2020-12-30 10:30:00 2020-12-30 10:30:00 Outpatient R ERICA CABA SHIWAN [facility] [id number] [facility] 2020-12-30 08:59:10 2020-12-30 09:14:10 Pig Sticker Visit Pob, Adc Lab Main Nusrat Royha [facility] Building 1.2840.114 350.1.13.10 4.2.7.2.686 [id number] [facility] 2020-12-28 09:58:42 2020-12-28 23:59:00 Hospital Encounter Radiology [facility] 1.2840.114 350.1.13.10 4.2.7.2.686 [id number] [facility] 2020-12-28 00:00:00 2020-12-28 00:00:00 Outpatient R RADIOLOGY [facility] [id number] [facility] 2020-12-28 00:00:00 2020-12-28 00:00:00 Orders Only Doctor Unassigned, [place] [facility] 1.2840.114 350.1.13.10 4.2.7.2.686 [id number] [facility] 2020-11-12 09:30:00 2020-11-12 09:30:00 Outpatient R KIRILL SHANNAN [facility] [id number] [facility] 2020-11-12 00:00:00 2020-11-12 00:00:00 Telephone Erica Caba [facility] Building 1.2.840.114 350.1.13.10 4.2.7.2.686 [id number] [facility] 2020-11-08 07:50:52 2020-11-08 23:59:00 Hospital Encounter Cam Cabadeborah [facility] 1.2.840.114 350.1.13.10 4.2.7.2.686 [id number] [facility] 2020-11-08 09:00:00 2020-11-08 09:00:00 Outpatient R SHANNAN ROY [facility] [id number] [facility] 2020-11-08 00:00:00 2020-11-08 00:00:00 Outpatient R [facility] [id number] [facility] 2020-11-05 13:00:00 2020-11-05 13:00:00 Outpatient R SHANNAN ROY [facility] [id number] [facility] 2020-10-29 13:48:11 2020-10-29 14:15:23 Office Visit Piedad Cabaazdeborah [facility] Building 1.2.840.114 350.1.13.10 4.2.7.2.686 [id number] [facility] 2020-10-29 14:00:00 2020-10-29 14:00:00 Outpatient R [facility] [id number] [facility] 2020-10-11 10:00:00 2020-10-11 10:00:00 Outpatient R SHANNAN ROY [facility] [id number] [facility] 2020-10-07 00:00:00 2020-10-07 00:00:00 Telephone Sana Gao [facility] Professio nal Building 1.2.840.114 350.1.13.10 4.2.7.2.686 [id number] [facility] 2020-10-05 11:30:00 2020-10-05 11:30:00 Outpatient R SANA GAO [facility] [id number] [facility] 2020-10-05 11:14:57 2020-10-05 11:29:57 Pig Sticker Visit Pob, Adc Lab Main Sana Gao [facility] 1.840.114 350.1.13.10 4.2.7.2.686 [id number] [facility] 2020-10-05 00:00:00 2020-10-05 00:00:00 Orders Only Doctor Unassigned, [place] [facility] 1..114 350.1.13.10 4.2.7.2.686 [id number] [facility] 2020-09-30 09:00:00 2020-09-30 09:00:00 Outpatient ERICA LOVE SHIWAN [facility] [id number] [facility] 2020-09-17 00:00:00 2020-09-17 00:00:00 Telephone Perfecto aSna Wall [facility] 1.840.114 350.1.13.10 4.2.7.2.686 [id number] [facility] 2020-09-16 00:00:00 2020-09-16 00:00:00 Telephone Perfecto Sana A [facility] 1.840.114 350.1.13.10 4.2.7.2.686 [id number] [facility] 2020-08-16 00:00:00 2020-08-16 00:00:00 Telephone Johanyn Kaplan [facility] 1.84.114 350.1.13.10 4.2.7.2.686 [id number] [facility] 2020-08-12 10:23:08 2020-08-12 23:59:00 Hospital Encounter Radiology [facility] 1.2.114 350.1.13.10 4.2.7.2.686 [id number] [facility] 2020-08-12 10:25:23 2020-08-12 10:40:23 Pig Sticker Visit Pob, Adc Lab Main Johanny Kaplan [facility] 1.2.114 350.1.13.10 4.2.7.2.686 [id number] [facility] 2020-08-12 00:00:00 2020-08-12 00:00:00 Outpatient R RADIOLOGY [facility] [id number] [facility] 2020-08-12 00:00:00 2020-08-12 00:00:00 Orders Only Doctor Unassigned, [place] [facility] 1.2.114 350.1.13.10 4.2.7.2.686 [id number] [facility] 2020-08-11 00:00:00 2020-08-11 00:00:00 Telephone Sana Gao [facility] 1.84.114 350.1.13.10 4.2.7.2.686 [id number] [facility] 2020-07-26 13:20:00 2020-07-26 13:20:00 Outpatient R GRACY MCKEON [facility] [id number] [facility] 2020-07-20 10:00:00 2020-07-20 10:00:00 Outpatient R JOHANNY KAPLAN [facility] [id number] [facility] 2020-07-12 00:00:00 2020-07-12 00:00:00 Telephone Sana Gao [facility] 1.284.114 350.1.13.10 4.2.7.2.686 [id number] [facility] 2020-07-08 10:28:55 2020-07-08 10:43:55 Pig Sticker Visit Keaton, Pinky Lab Main Tri Chin [facility] Building 1.284.114 350.1.13.10 4.2.7.2.686 [id number] [facility] 2020-07-08 10:30:00 2020-07-08 10:30:00 Outpatient Evaristo [facility] [id number] [facility] 2020-07-08 00:00:00 2020-07-08 00:00:00 Telephone Sana Gao [facility] 1.84.114 350.1.13.10 4.2.7.2.686 [id number] [facility] 2020-07-08 00:00:00 2020-07-08 00:00:00 Orders Only Doctor Unassigned, [place] [facility] 1..114 350.1.13.10 4.2.7.2.686 [id number] [facility] 2020-07-06 09:48:07 2020-07-06 10:54:20 Office Visit Johanny Kaplan [facility] 1..114 350.1.13.10 4.2.7.2.686 [id number] [facility] 2020-07-06 09:45:00 2020-07-06 09:45:00 Outpatient R DENISHA [facility] [id number] [facility] 2020-06-30 16:54:53 2020-06-30 17:09:53 Pig Sticker Visit Potracey, Adc Lab Main Sana Gao [facility] Building 1.84.114 350.1.13.10 4.2.7.2.686 [id number] [facility] 2020-06-30 17:00:00 2020-06-30 17:00:00 Outpatient R SANA GAO [facility] [id number] [facility] 2020-06-30 00:00:00 2020-06-30 00:00:00 Orders Only Doctor Unassigned, [place] [facility] 1.2.840.114 350.1.13.10 4.2.7.2.686 [id number] [facility] 2020-06-28 00:00:00 2020-06-28 00:00:00 Telephone Sana Gao [facility] Building 1.2.840.114 350.1.13.10 4.2.7.2.686 [id number] [facility] 2020-06-21 10:25:21 2020-06-21 23:59:00 Hospital Encounter Radiology [facility] 1.2.840.114 350.1.13.10 4.2.7.2.686 [id number] [facility] 2020-06-21 00:00:00 2020-06-21 00:00:00 Outpatient R RADIOLOGY [facility] [id number] [facility] 2020-06-04 00:00:00 2020-06-04 00:00:00 Case Management Sana Gao [facility] Building 1.2.840.114 350.1.13.10 4.2.7.2.686 [id number] [facility] 2020-06-03 16:10:40 2020-06-03 23:59:00 Hospital Encounter Sana Gao [facility] 1.2.840.114 350.1.13.10 4.2.7.2.686 [id number] [facility] 2020-06-03 14:28:14 2020-06-03 16:02:32 Nurse Visit Nurse, [facility] Surgery Gu Sana Gao [facility] Building 1..840.114 350.1.13.10 4.2.7.2.686 [id number] [facility] 2020-06-03 14:30:00 2020-06-03 14:30:00 Outpatient R [facility] [id number] [facility] 2020-06-03 00:00:00 2020-06-03 00:00:00 Orders Only Doctor Unassigned, [place] [facility] 1..840.114 350.1.13.10 4.2.7.2.686 [id number] [facility] 2020-06-02 12:51:03 2020-06-02 13:06:03 Pig Sticker Visit Pob, [facility] Lab Main Sana Gao [facility] 1..840.114 350.1.13.10 4.2.7.2.686 [id number] [facility] 2020-06-02 13:00:00 2020-06-02 13:00:00 Outpatient R SANA GAO [facility] [id number] [facility] 2020-06-01 00:00:00 2020-06-01 00:00:00 Patient Outreach Paul Brand [facility] 1..840.114 350.1.13.10 4.2.7.2.686 [id number] [facility] 2020-05-17 00:00:00 2020-05-17 00:00:00 Outpatient STLMLC STLMLC [id number] [facility] 2020-05-11 10:39:02 2020-05-11 11:23:09 Office Visit Sana Gao [facility] 1..840.114 350.1.13.10 4.2.7.2.686 [id number] [facility] 2020-05-11 10:45:00 2020-05-11 10:45:00 Outpatient SANA VEGAS [facility] [id number] [facility] 2020-04-27 10:30:00 2020-04-27 10:30:00 Outpatient Evaristo GAO SANA [facility] [id number] [facility] 2020-04-22 09:35:00 2020-04-22 10:45:00 Emergency Osito Rodriguez [facility] 1.2.840.114 350.1.13.10 4.2.7.2.686 [id number] [facility] 2020-04-13 00:00:00 2020-04-13 00:00:00 Telephone Geovany Carbone [facility] Medical Office Building 1.2.840.114 350.1.13.10 4.2.7.2.686 [id number] [facility] 2020-04-08 18:57:00 2020-04-08 21:59:00 Emergency Oscar Hill [facility] 1.2.840.114 350.1.13.10 4.2.7.2.686 [id number] [facility] 2020-04-07 00:00:00 2020-04-07 00:00:00 Telephone Kendra Oden [facility] Medical Office Building 1.2.840.114 350.1.13.10 4.2.7.2.686 [id number] [facility] 2020-04-05 10:00:00 2020-04-05 10:00:00 Outpatient GEOVANY FERNANDEZ [facility] [id number] [facility] 2020-04-05 09:08:27 2020-04-05 09:23:27 Pig Sticker Visit Pob, Adc Lab Main Geovany Carbone [facility] Building 1.2.840.114 350.1.13.10 4.2.7.2.686 [id number] [facility] 2020-04-05 00:00:00 2020-04-05 00:00:00 Outpatient STLMLC STLMLC [id number] [facility] 2020-04-05 00:00:00 2020-04-05 00:00:00 Orders Only Doctor Unassigned, [place] [facility] 1.2.840.114 350.1.13.10 4.2.7.2.686 [id number] [facility] 2020-04-02 00:00:00 2020-04-02 00:00:00 Telephone Kendra Oden [facility] Medical Office Building 1.2.840.114 350.1.13.10 4.2.7.2.686 [id number] [facility] 2020-04-02 00:00:00 2020-04-02 00:00:00 Telephone Geovany Carbone [facility] Medical Office Building 1.2.840.114 350.1.13.10 4.2.7.2.686 [id number] [facility] 2020-03-22 00:00:00 2020-03-22 00:00:00 Outpatient [facility] [id number] [facility] 2020-03-10 00:00:00 2020-03-10 00:00:00 Outpatient [facility] [id number] [facility] 2020-02-24 10:30:00 2020-02-24 10:30:00 Outpatient ELIEL BRITO [facility] [id number] [facility] 2020-02-10 00:00:00 2020-02-10 00:00:00 Outpatient [facility] [id number] [facility] 2020-01-12 00:00:00 2020-01-12 00:00:[id number] 2019-11-28 00:00:00 2019-11-28 00:00:00 Telephone Akshat, [facility] 1..114 350.1.13.10 4.2.7.2.686 [id number] [facility] 2019-11-25 13:17:08 2019-11-25 14:58:15 Office Visit Akshat [facility] 1..114 350.1.13.10 4.2.7.2.686 [id number] [facility] 2019-11-25 13:30:00 2019-11-25 13:30:00 Outpatient R AKSHATISIDRAKENDRA [facility] [id number] [facility] 2019-11-25 00:00:00 2019-11-25 00:00:00 Orders Only Doctor Unassigned, [place] [facility] 1..114 350.1.13.10 4.2.7.2.686 [id number] [facility] 2019-11-18 09:30:00 2019-11-18 09:30:00 Outpatient R AKSHATISIDRA MABRYKHAN [facility] [id number] [facility] 2019-10-13 10:00:00 2019-10-13 10:00:00 Outpatient [facility] [id number] [facility] 2018-11-29 00:00:00 2018-11-29 00:00:00 Telephone Sana Gao [facility] Thomas Esparza [facility] 1.84.114 350.1.13.10 4.2.7.2.686 [id number] [facility] 2018-11-29 00:00:00 2018-11-29 00:00:00 Telephone Sana Gao [facility] 1.2.840.114 350.1.13.10 4.2.7.2.686 [id number] 2018-10-24 15:15:31 2018-10-24 15:41:04 Office Visit Erica Caba [facility] 1.2.840.114 350.1.13.10 4.2.7.2.686 [id number] [facility] 2018-10-24 15:15:31 2018-10-24 15:41:04 Office Visit Erica Caba [facility] 1.2.840.114 350.1.13.10 4.2.7.2.686 [id number] 2018-10-16 00:00:00 2018-10-16 00:00:00 Orders Only Doctor Unassigned, [place] [facility] 1.2.840.114 350.1.13.10 4.2.7.2.686 [id number] [facility] Results Test Description Test Time Test Comments Results Result Co mments Source BASIC METABOLIC [id number] 16:47:00* Test Item Value Reference Range Interpretation Comme nts SODIUM (test code = NA) 142 mmol/L 136-145 N POTASSIUM (test code = K) 4.7 mmol/L 3.5-5.1 N CHLORIDE (test code = CL) 103.0 mmol/L 98-107 N CARBON DIOXIDE (test code = CO2) 30.5 mmol/L 21-32 N GLUCOSE (test code = GLU) 82 mg/dL 74-106 N BLOOD UREA NITROGEN (test code = BUN) 18 mg/dL 7-18 N GLOMERULAR FILTRATION RATE (test code = GFR) 41.6 >60 L The Glomerular Filtration Rate is [...] <18 years. CREATININE (test code = CREAT) 1.39 mg/dL 0.55-1.02 H CALCIUM (test code = CA) 8.4 mg/dL 8.5-10.1 L CBC W/AUTO [id number] 15:32:00* Test Item Value Reference Range Interpretation Comme nts WHITE BLOOD CELL (test code = WBC) 8.2 K/mm3 5.5-11.0 N RED BLOOD CELL (test code = RBC) 4.60 M/mm3 4.2-5.4 N HEMOGLOBIN (test code = HGB) 14.1 g/dL 12-16 N HEMATOCRIT (test code = HCT) 42.8 % 37-47 N MEAN CELL VOLUME (test code = MCV) 93 fL 80-98 N MEAN CELL HGB (test code = MCH) 30.7 pg 27-34 N MEAN CELL HGB CONCENTRATION (test code = MCHC) 32.9 g/dL 30.8-34.1 N RED CELL DISTRIBUTION WIDTH (test code = RDW) 13.4 % 11-16 N PLT (test code = PLT) 202 K/mm3 130-400 N MEAN PLATELET VOLUME (test code = MPV) 10.3 fL 8.9-12.1 N NEUTROPHIL % (test code = NT%) 58.6 % 45-70 N LYMPHOCYTE % (test code = LY%) 20.1 % 20-40 N MONOCYTE % (test code = MO%) 8.3 % 3-10 N EOSINOPHIL % (test code = EO%) 11.3 % 1-5 H BASOPHIL % (test code = BA%) 1.0 % 0.0-1.1 N NEUTROPHIL # (test code = NT#) 4.82 K/mm3 2.00-7.50 N LYMPHOCYTE # (test code = LY#) 1.65 K/mm3 1.50-4.00 N MONOCYTE # (test code = MO#) 0.68 K/mm3 0.2-0.8 N EOSINOPHIL # (test code = EO#) 0.93 K/mm3 0.04-0.4 H BASOPHIL # (test code = BA#) 0.08 K/mm3 0.02-0.10 N MANUAL DIFF REQUIRED (test code = MDIFF) YES MANUAL DIFF MANUAL DIFF REQUIRED. NUCLEATED RED BLOOD CELL (test code = NRBC) 0 % 0-0 N BASIC METABOLIC [id number] 06:32:00* Test Item Value Reference Range Interpretation Comme nts SODIUM (test code = NA) 139 mmol/L 136-145 N POTASSIUM (test code = K) 4.9 mmol/L 3.5-5.1 N CHLORIDE (test code = CL) 103.0 mmol/L 98-107 N CARBON DIOXIDE (test code = CO2) 28.9 mmol/L 21-32 N GLUCOSE (test code = GLU) 80 mg/dL 74-106 N BLOOD UREA NITROGEN (test code = BUN) 14 mg/dL 7-18 N GLOMERULAR FILTRATION RATE (test code = GFR) 59.3 >60 L The Glomerular Filtration Rate is [...] <18 years. CREATININE (test code = CREAT) 1.04 mg/dL 0.55-1.02 H CALCIUM (test code = CA) 8.1 mg/dL 8.5-10.1 L CBC W/AUTO [id number] 05:41:00* Test Item Value Reference Range Interpretation [...] N CBC W Auto Differential panel - [id number] 04:00:00* Test Item Value Reference Range Interpretation [...] (test code = performing lab:) [facility] metabolic [id number] 04:00:00* Test Item Value Reference Range Interpretation [...] performing lab: (test code = performing lab:) L[facility] Medicine REACTIVE [id number] 20:33:00* Test Item Value Reference Range Interpretation Comme nts C REACTIVE PROTEIN (test cod e = CRP) 0.43 mg/dL < 0.3 H ACUTE HEPATITIS [id number] 20:33:00* Test Item Value Reference Range Interpretation [...] code = HIV1AB) NONREACTIVE NONREACTIVE DONE AT: [address] [id number] by [employer] 4[employer] HIV Ag/Ab Combo Screen ACUTE HEPATITIS [id number] 20:33:00* Test Item Value Reference Range Interpretation [...] AB HIV 1 2 (test code = SSY28RV) NONREACTIVE NONREACTIVE Done by [employer] 4[employer] HIV Ag/Ab Combo Screen SED [id number] 14:01:00* Test Item Value Reference Range Interpretation Comme nts SED RATE (test code = SEDW) 25 mm/hr 0-30 N COMPREHENSIVE METABOLIC [id number] 13:30:00* Test Item Value Reference Range Interpretation [...] = ALKP) 128 U/L 46-116 H PROTHROMBIN [id number] 13:15:00* Test Item Value Reference Range Interpretation [...] intravascular valves IS PATIENT ON ANTICOAGULANTS ? MOas Lab been notified if Patient is on Heparin Drip? NOTHROMBOPLASTIN TIME [id number] 13:15:00* Test Item Value Reference Range Interpretation Comme nts PTT ACTIVATED (test code = APTT) 30.9 secs 25.1-36.5 N IS PATIENT ON ANTICOAGULANTS ? NHas Lab been notified if Patient is on Heparin Drip? NOCBC W/AUTO [id number] 13:01:00* Test Item Value Reference Range Interpretation [...] N CBC W Auto Differential panel - [id number] 11:58:00* Test Item Value Reference Range Interpretation [...] performing lab:) [facility] [id number] 11:58:00 * Test Item Value Reference Range Interpretation Comme nts PTT activated (test code = P TT activated) 30.9 secs 25.1-36.5 performing lab: (test code = performing lab:) [facility] 2000 [facility] - Serum or [id number] 11:58:00* Test Item Value Reference Range Interpretation [...] (test code = performing lab:) [facility] Medicinesed [id number] 11:58:00* Test Item Value Reference Range Interpretation Comme nts sed rate (test code = sed rate) 25 mm/HR 0-30 performing lab: (test code = performing lab:) [facility] [id number] 11:58:00* Test Item Value Reference Range Interpretation Comme nts C reactive protein (test cod e = C reactive protein) 0.43 mg/dL < 0.3 H performing lab: (test code = performing lab:) [facility] [id number] 11:58:00* Test Item Value Reference Range Interpretation [...] [facility]- XR PELVIS 1/2 [id number] 10:13:00 [facility] : 1955 Sex: F Patient Name: VALENTINO DALAL Unit No: [id number] EXAMS: CPT CODE: [id number] XR PELVIS 1/2VIEWS 50838 AP VIEW OF THE PELVIS. COMMENT: In [...] Technologist: Charles Munoz(R) Transcribed D/ (1013) VicenteSLJ [facility] NAME: VALENTINO DALAL [address] [facility] Main PHYS: JACKLYN. - Fabricio Cartagena : 1955 AGE: 66 SEX: F [place] [address] LOC: Y.507 A PHONE #: [phone] EXAM DATE: 01/20/2022 STATUS: ADM IN FAX #: [phone] RAD #: D/C DT PAGE 1 Signed Report Patient Name: VALENTINO DALAL Unit No: [id number] EXAMS: CPT CODE: [id number] XR PELVIS 1/2 VIEWS 51637 (Continued) Orig Print D/T: S: 01/24/2022 (1017) [facility] NAME: VALENTINO [facility]ALAL [address] [facility] MATVA.01 - Fabricio Cartagena : 1955 AGE: 66 SEX: F [place] [id number] LOC: Y.507 A PHONE #: [phone] EXAM DATE: 01/20/2022 STATUS: ADM IN FAX #: [phone] RAD #: D/C DT PAGE 2 Signed Report- XR PELVIS 1/2 [id number] 10:13:00 [facility] 1955 Sex: F Patient Name: VALENTINO DALAL Unit No: [id number] EXAMS: CPT CODE: [id number] XR PELVIS 1/2VIEWS 07114 AP VIEW OF THE PELVIS. COMMENT: In [...] MD Technologist: Charles Munoz(R) Transcribed D/ (1013) [facility]: VALENTINO DALAL [address] [facility] Main PHYS: MATVA.01 - Fabricio Cartagena : 1955 AGE: 66 SEX: F [place], [place] [address] LOC: Y.507 A PHONE #: [phone] EXAM DATE: 01/19/2022 STATUS: ADM IN FAX #: [phone] RAD #: D/C DT PAGE 1 Signed Report Patient Name: VALENTINO DALAL Unit No: [id number] EXAMS: CPT CODE: [id number] XR PELVIS 1/2 VIEWS 75329 (Continued) Orig Print D/T: S: 01/24/2022 (1017) [facility] NAME: VALENTINO DALAL [address] [facility] MainPHYS: JACKLYN.01 - CartagenaFabricio M : 1955 AGE: 66 SEX: F [place], [place] [address] LOC: Y.507 A PHONE #: [phone] EXAM DATE: 01/19/2022 STATUS: ADM IN FAX #: [phone] RAD #: D/C DT PAGE 2 Signed ReportBASIC METABOLIC [id number] 07:12:00* Test Item Value Reference Range Interpretation [...] = CA) 8.1 mg/dL 8.2-10.1 L HGB [id number] 06:43:00* Test Item Value Reference Range Interpretation Comme nts HEMOGLOBIN (test code = HGB) 9.9 g/dL 12-16 L HEMATOCRIT (test code = HCT) 29.7 % 37-47 L Hemoglobin and Hematocrit panel - [id number] 04:00:00* Test Item Value Reference Range Interpretation Comme nts hemoglobin (test code = hemoglobin) 9.9 g/dL 12-16 L hematocrit (test code = hematocrit) 29.7 % 37-47 L performing lab: (test code = performing lab:) [facility] [id number] 04:00:00* Test Item Value Reference Range Interpretation [...] performing lab:) [facility]- XR FLUORO [id number] 11:29:00 [facility] : 1955 Sex: F Patient Name: VALENTINO DALAL Unit No: [id number] EXAMS: CPT CODE: [id number] XR FLUORO NDL 49354 Fluoroscopically guided right hip aspiration FINDINGS: After [...] Cartagena MD Technologist: Kallie BECKWITH-RAD-TECH Transcribed D/ (3813) Celestine [facility] NAME: VALENTINO DALAL[address] [facility] PHYS: JACKLYN.Yvrose - Fabricio Cartagena : 1955 AGE: 66 SEX: F [place] [address] LOC: Y.RAD PHONE #: [phone] EXAM DATE: 12/02/2021 STATUS: DEP CLI FAX #: [phone] RAD #: D/C DT PAGE 1 Signed Report Patient Name: VALENTINO DALAL Unit No: [id number] EXAMS: CPT CODE: [id number] XR FLUORO NDL 87049 (Continued) Orig Print D/T: S: 12/07/2021 (1132)[facility] NAME: VALENTINO DALAL [address] [place] [address] PHYS: JACKLYN.Yvrose - Fabricio Cartagena MDOB: 1955 AGE: 66 SEX: F [place] [address] LOC: Y.RAD PHONE #: [phone] EXAM DATE: 12/02/2021 STATUS: DEP CLI FAX #: [phone] RAD #: D/C DT PAGE 2 Signed Report- XR FLUORO [id number] 11:29:00 [facility] 1955 Sex: F Patient Name: VALENTINO DALAL Unit No: [id number] EXAMS: CPT CODE: [id number] XR FLUORO NDL 40455 Fluoroscopically guided right hip aspiration FINDINGS: After [...] Cartagena MD Technologist: Kallie BECKWITH-RAD-TECH Transcribed D/ (1126) NedaR.SLJ [facility] NAME: VALENTINO DALAL [address] [facility] PHYS: Fabricio Hoffman : 1955 AGE: 66 SEX: F [place], [place] [address] LOC: Y.RAD PHONE #: [phone] EXAM DATE: 12/02/2021 STATUS: SELVIN CLI FAX #: [phone] RAD #: D/C DT PAGE 1 Signed Report Patient Name: VALENTINO DALAL Unit No: [id number] EXAMS: CPT CODE: [id number] XR FLUORO NDL 55483 (Continued) Orig Print D/T: S: 12/07/2021 (1132) [facility] NAME: VALENTINO DALAL Yv[facility] PHYS: MATVA.01 - Fabricio Cartagena : 1955 AGE: 66 SEX: F [place], [place] [address] LOC: NICK PHONE #: [phone] EXAM DATE: 12/02/2021 STATUS: DEP CLI FAX #: [phone] RAD #: D/C DT PAGE [address]/[id number] 16:31:00* Test Item Value Reference Range Interpretation Comme nts SYNOVIAL FLD COLOR (test code = COLSY) BLOODY LT. YELLOW A SYNOVIAL FLD APPEARANCE (test code = APPSY) SLIGHT HAZY CLEAR SYNOVIAL FLD VOLUME (test code = VOLSY) 1 mL SYNOVIAL FLD WBC (test code = WBCSY) 1170.000 /MM3 0-200 H SYNOVIAL FLD RBC (test code = RBCSY) 317342.000 /mm3 0-2 H NOTE: An automated method [...] % 0-0 H SPECIMEN COMMENT: ASPIRATIONCBC W/MANUAL [id number] 13:15:00* Test Item Value Reference Range Interpretation [...] = EOS) 10 % 1-3 H SED [id number] 13:15:00* Test Item Value Reference Range Interpretation Comme nts SED RATE (test code = SEDW) 30 mm/hr 0-20 H COMPREHENSIVE METABOLIC [id number] 12:49:00* Test Item Value Reference Range Interpretation [...] 46.0 >60 Unit of m easure: mL/min/1.73 k7Mkothbytr Range:Healthy Adults >90 mL/min/1.73 m2 For Chronic [...] = ALKP) 123 U/L 46-116 H PROTHROMBIN [id number] 12:49:00* Test Item Value Reference Range Interpretation [...] intravascular valves IS PATIENT ON ANTICOAGULANTS ? MOas Lab been notified if Patient is on Heparin Drip? NOIf Yes, order CBC, OCCULT BLOOD, PT every other day NTHROMBOPLASTIN TIME [id number] 12:49:00* Test Item Value Reference Range Interpretation [...] = CRP) 1.7 mg/dL <0.9 CBC W/AUTO [id number] 12:39:00* Test Item Value Reference Range Interpretation [...] % 0-0 N POCT URINALYSIS W SPECIFIC [id number] 16:01:00* Test Item Value Reference Range Interpretation [...] internal controls Lab Interpretation (test code = 31936-2) Abnormal [facility] [id number] 16:01:00* Test Item Value Reference Range Interpretation Comme nts External FIT DNA (test code = 06616-6) Positive Positive Lab Interpretation (test cod e = 91411-9) Abnormal [facility] Notes Date/Time Note Provider Source 2024-03-27 14:59:00 [id number] [place] [address] PATIENT NAME: VALENTINO DALAL ADMIT DATE: ACCOUNT NO: [id number] ROOM NO: AGE: 68 REPORT TYPE: ELECTROCARDIOGRAM SEX: F ADMITTING PHYSICIAN: ATTENDING PHYSICIAN:Van Zamroano MD Order: [id number] Test Reason : PREOP CLEARANCE H/O HTN Test Date/Time Stamp: SunMar 27 2024 14:59:04 Blood Pressure : / mmHG Vent. Rate : 077 BPM Atrial Rate : 077 BPM P-R Int : 162 ms QRS Dur : 114 ms QT Int : 402 ms P-R-T Axes : 058 -09 066 degrees QTc Int : 454 ms Normal sinus rhythm Normal ECG When compared with ECG of 04-APR-2023 11:27, No significant change was found Confirmed by ZEKE FOLEY ([id number]) on 04/07/2024 12:09:21 PM Referred By: Van Zamorano Confirmed by:ZEKE FOLEY PATIENT NAME: VALENTINO DALAL HCATO 2023-06-19 09:16:33 Completed Chart review/Care everywhere/Immtrac. Immtrac2 immunizations are up to date. Care Everywhere new medical records obtained at this time for Overdue HM: 1.) Reconciled Cologuard performed on 02/02/2020 through [employer]=Positive. 2.) Reconciled Mammogram on 12/23/[address] Ian Gardner, no report=Null. 3.) Patient is currently using: [facility]: Primary Care Physician [address] [place], [address] [place], [place] [address] [address] Donna Muse Office *Last seen 06/18/2023 Sent patient a message via [employer] of Overdue Health Maintenance with Varicella Questionnaire. No futurre appointments at this time. 06/19/23 Health Maintenance team contacted patient to assist in completing Health Maintenance topics that are overdue. Valentino Dalal [id number] Attempt Number: 1st/Final Health Maintenance topics addressed: Health Maintenance Due Topic Date Due Medicare Wellness Visit Never done Depression Screening Never done SDOH Financial Resource Strain Never done SDOH Food Insecurity Never done SDOH Transportation Needs Never done HEPATITIS C (HCV) SCREEN Never done DTaP,Tdap,and Td Vaccines (1 - Tdap) Never done Zoster Recombinant Vaccine (SHINGRIX) (1 of 2) Never done PNEUMOCOCCAL VACCINES 65+ (1 of 1 - PCV) Never done Breast Cancer Screening (Mammogram) 12/23/2021 INFLUENZA VACCINE (1) Never done SARS-CoV-2 (COVID-19) Vaccine (3 - 2022- season) 2022 Colorectal Cancer Screening 02/01/2023 Call outcome: Called patient to review the above overdue health maintenance. Patient stated her new primary care physician's are at [facility]. Notified patient I sent her a [employer] message that will give additional details of studies or vaccines that she is currently due for. Patient stated "Thank you and will discuss with them". Notified patient my name and direct number is on the [employer] message if she needs additional assistance. [place], [facility] [phone] Stephy Chacon MA [facility] 2023-04-20 10:44:00 [facility] ([facility]) Orthopaedic Progress Note REPORT#:[id number] REPORT STATUS: Signed REPORT INITIALIZATION DATE:04/20/23 TIME: 104 PATIENT: VALENTINO DALAL UNIT #: [id number] ROOM/BED: [address] : [birth year] AGE: 67 SEX: F ATTEND: Vineet Weeks MD ADM AUTHOR: Hafsa Mathew REPT SERVICE DT/TIME: 04/20/23 1044 * ALL edits or amendments must be made on the electronic/computer document * Subjective Patient reports: Yes: pain, pain controlled. No: ambulating with therapy. Objective VS: Last Documented: Result Date Time Pulse Ox 100 04/20 829 O2 Delivery Nasal cannula 04/20 829 O2 Flow Rate 2 04/20 0730 B/P 147/73 04/20 752 B/P Mean 97.5 04/20 752 Temp 36.6 04/20 752 Pulse 85 04/20 0753 Resp 14 04/20 0753 FiO2 28 04/20 0215 PATIENT WEIGHT: Weight (lb): 164 Weight (oz): 10.96 Weight (kg): 74.700 Medications: Active Meds + DC'd Last 24 Hrs Magnesium Hydroxide (MILK OF MAGNESIA) 30 ML [...] 100 mcg/NS 10 mL SYR) 100 MCG .STK -MED ONE IV (DC) Ondansetron HCl (ZOFRAN) 4 MG .STK-MED ONE IV (DC) Propofol (DIPRIVAN) 400 MG .STK-MED ONE IV (DC) Rocuronium Robards (Rocuronium Robards 10 mg/mL) 100 MG .STK-MED ONE IV [...] Hydromorphone HCl (HYDROmorphone 10 mg/NS 50 mL PROPULSION GENERATOR REPAIRER) 50 ML ASDIR IV (CKD ) IV Miscellaneous Supplies (PROPULSION GENERATOR REPAIRER SANTIZO) 1 EA ASDIR MISC Naloxone HCl [...] (XYLOCAINE) 2 ML PREOP SUBQ (DC) Physical Exam General appearance: alert, oriented, no acute distress Extremities: Right femur with dressing C/D/I. NVI. Diagnosis, Assessment Plan Free text A P: POD#1 s/p right proximal femur HWR - DVT prophylaxis - PT - WBAT to RLE - Pain control - D/c home today - Take 81 mg ASA daily once home for DVT prophylaxis - Pain medication sent to pharmacy at 1050 at 0922 RPT #:[id number] END OF REPORT ELLATO 2023-04-20 10:41:00 [facility] ([facility]) Discharge Summary REPORT#:[id number] REPORT STATUS: Signed REPORT INITIALIZATION DATE:04/20/23 TIME: 1041 PATIENT: VALENTINO DALAL UNIT #: [id number] ROOM/BED: [address] : [birth year] AGE: 67 SEX: F ATTEND: Vineet Weeks MD ADM AUTHOR: Hafsa Mathew REPT SERVICE DT/TIME: 04/20/23 1041 * ALL edits or amendments must be made on the electronic/computer document * General Information Discharge date: 04/19/23 Discharge diagnosis: Right femur painful hardware Hospital course: On 04.18.23 the patient underwent right proximal femur hardware removal due to pain. Consultants: internal medicine, pain management Pt. condition on discharge: stable Allergies: Allergies: Penicillins (Coded, Severe, convulsions, 04/19/23) Iodinated Contrast Media (IODINATED CONTRAST MEDIA - IV DYE) (Coded, Mild, "INSIDES ON FIRE", HYPERVENTILATES, 04/19/23) vancomycin (Coded, Mild, HIVES, SKIN PEELED OFF, EXTREME RED SKIN, 04/19/23) Med Rec Med Rec Discharge meds: Stop taking the following medications: traMADol (ULTRAM) 50 MG TAB 50 MILLIGRAM ORAL EVERY FOUR HOURS. Continue taking these medications: CALCIUM CARBONATE (TUMS) 200 MG CALCIUM (500 MG) TAB.CHEW 500 MILLIGRAM ORAL PRN as needed for indigestion methocarbamoL (ROBAXIN) 500 MG TAB 500 MILLIGRAM ORAL FOUR TIMES A DAY. Qty = 60 MELOXICAM (MOBIC) 15 MG TAB 15 MILLIGRAM ORAL DAILY. Qty = 30 [SINEX] 1 SPRAY NASAL PRN as needed for ALLERGIES Discharge Instructions PCP )( Discharge to: Home/Self Care Discharge Instructions Additional Discharge Routines: Wound/Dressing Care, Add. instructions )( Diet: Regular )( Activity: Weight Bearing As Liliana. )( Wound/dressing care: Keep wound clean and dry, Leave dressing in place )( Additional instructions: Take 81 mg ASA daily once home for DVT prophylaxis. at 1043 at 0922 RPT #:[id number] END OF REPORT HCATO 2023-04-20 07:10:00 [facility] ([facility]) Clinical Note REPORT#:[id number] REPORT STATUS: Signed REPORT INITIALIZATION DATE:04/20/23 TIME: 709 PATIENT: VALENTINO DALAL UNIT #: [id number] ROOM/BED: [address] : [birth year] AGE: 67 SEX: F ATTEND: Vineet Weeks MD ADM AUTHOR: Jim Enriquez MD REPT SERVICE DT/TIME: 04/20/23 0710 * ALL edits or amendments must be made on the electronic/computer document * Clinical Note Note: [facility] Jim Evans M.D. (cell text [phone]) Assessment/Plan 1.) Anemia of acute blood loss- .Hgb 10.3, asymptomatic. 2.) S/p Hardware removal left proximal femur- .acute multi-modal pain control and followup. Anticoagulation as per . 3.) Hypertension PSVT CKDz3A- .follow BP and hold Rxs if SBP<120. 4.) Rheumatoid OsteoArthritis- .continue on Rx. Prior Events/Overnight: Uneventful. Chief Complaint: No significant complaints. Objective Vital Signs: Date Time Temp Pulse Resp [...] 59 14 128/72 90.6 100 Nasal cannula 02/08 1100 97.0 71 16 125/63 100 Nasal [...] in moderate discomfort Neck: No Masses, No Thyromegaly- CV: Regular Rate Rhythm / Edema- no significant Resp: Clear To Ascultation / Normal Respiratory Effort ABD: NonTender / NonDistended MS/Skin: No sign of compartment syndrome / +ankle DF/PF Other: thigh dressing clean, dry Labs/X-ray: Laboratory Tests: [...] % (Auto) (20 - 40 %) 20.3 [place] % (Auto) (3 - 10 %) 8.7 Eos % (Auto) (1 - 5 %) 3.3 Baso % (Auto) (0.0 - 1.1 %) 0.7 Neut # (Auto) (2.00 - 7.50 K/mm3) 5.81 Lymph # (Auto) (1.50 - 4.00 K/mm3) 1.77 [place] # (Auto) (0.2 - 0.8 K/mm3) 0.76 Eos # (Auto) (0.04 - 0.4 K/mm3) 0.29 Baso # (Auto) (0.02 - 0.10 K/mm3) 0.06 Add Manual Diff (MANUAL DIFF) NO Nucleated RBC % (0 - 0 %) 0 Jim Evans M.D. at 0752 RPT #:[id number] END OF REPORT [facility] 2023-04-19 16:19:00 [facility] ([facility]) Clinical Note REPORT#:[id number] REPORT STATUS: Signed REPORT INITIALIZATION DATE:04/19/23 TIME: 1618 PATIENT: VALENTINO DALAL UNIT #: [id number] ROOM/BED: [address] : [birth year] AGE: 67 SEX: F ATTEND: Vineet Weeks MD ADM AUTHOR: Jim Enriquez MD REPT SERVICE DT/TIME: 04/19/231618 * ALL edits or amendments must be made on the electronic/computer document * Clinical Note Note: [facility] Jim Evans MD (cell text [phone]) Internal Medicine Consult at request of : Dr. [...] 1996, rheumatoid arthritis, atypical chest pain ALLERGY: Allergies: Penicillins (Coded, Severe, convulsions, 04/19/23) Iodinated Contrast Media (IODINATED CONTRAST MEDIA - IV DYE) (Coded, Mild, "INSIDES ON FIRE", HYPERVENTILATES, 04/19/23) vancomycin (Coded, Mild, HIVES, SKIN PEELED OFF, EXTREME RED SKIN, 04/19/23) Home Medications: Home Medications: traMADol (ULTRAM) 50 MG PO Q4H CALCIUM CARBONATE (TUMS) 500 MG PO PRN PRN indigestion [SINEX] 1 SPRAY NASAL PRN PRN ALLERGIES methocarbamoL (ROBAXIN) 500 MG PO QID MELOXICAM (MOBIC) 15 MG PO DAILY SgHx: .Left total hip arthroplasty, revision arthroplasty, femur surgery SHx: Tob: former smoker, quit 2010 FHx: .No significant hx of DVT/PE. Alcohol: none Drugs: none Lives: with spouse . . Vitals: Vital Signs: Date Time Temp Pulse Resp [...] 15 164/77 100 Gen: Alert, in mild discomfort. EYE: Nl lids conjunctiva. ENT: Nl ears Nose, nl lips,. Neck: Supple, nl thyroid, No masses. CV: Regular Rate Rhythm, no heave or significant murmur. Edema- none RESP: Clear to Auscultation, normal Respiratory effort. ABD: Soft, NonDistended,. LYM: No significant cervical lymphadenopathy. MS: No sign of compartment syndrome, bulky dressing on leg NEURO: Nonfocal, grossly normal sensation of LE, +Ankle DF/PF . . Preop Labs(04/04/23): CBC:. Hgb 10.9, Plt 282, CHEM: Na 136, K4.5 , Cr 1.11 (eGFR 54.8 %), . Ekg: Normal sinus rhythm . (medium to high risk of complications or morbidity) (major surgery) (IV sedative, meds) . Assessment Plan 1.) Anemia of Acute Blood Loss- .will recheck tomorrow. 2.) S/p Hardware removal left proximal femur- .acute multi-modal pain control and followup. Anticoagulation as per . 3.) Hypertension PSVT CKDz3A- .follow BP and hold Rxs if SBP<120. 4.) Rheumatoid OsteoArthritis- .continue on Rx. . Jim Evans M.D. Thanks! . . . . . G8417 BMI documented as above normal parameters and a f/u plan is documented G9903 - Patient screened for tobacco use AND identified as a tobacco non-user 1123F - [facility] disscussion - default code status while at [facility]. at 1725 RPT #:[id number] END OF REPORT [facility] 2023-04-19 10:21:00 [facility] ([facility]) Op/Inv Procedure Note - Brief REPORT#:[id number] REPORT STATUS: Signed REPORT INITIALIZATION DATE:04/19/23 TIME: 102 PATIENT: VALENTINO DALAL UNIT #: [id number] ROOM/BED: [address] : [birth year] AGE: 67 SEX: F ATTEND: Vineet Weeks MD ADM AUTHOR: Hafsa Mathew REPT SERVICE DT/TIME: 04/19/23 1021 * ALL edits or amendments must be made on the electronic/computer document * Op/Inv Proc Note - Brief TEXT Brief Op/Inv Procedure Note Note details: *PRE-PROCEDURE DIAGNOSIS: 1. Left hip painful hardware *POST-PROCEDURE DIAGNOSIS: Same *PROCEDURE(S) PERFORMED: Hardware removal left proximal femur *PRIMARY SURGEON: Vineet Weeks *FINAL ASSEMBLER(S): Hafsa Mathew PA-C ANESTHETIC: General *ESTIMATED BLOOD LOSS in ml's: 10 cc *SPECIMEN(S) REMOVED: None *COMPLICATIONS: None DRAIN(S): None[] TUBE(S): None[] IMPLANT(S): None[] FLUIDS: [] URINE OUTPUT: [] *FINDINGS: Synthes plate and screws removed atraumatically. DISPOSITION: To PACU at 1025 at 0922 [facility] #:[id number] [facility] 08:05:[address] Nguyen, "ok to clear. Needs follow up post op." Patient is going to be having hip surgery. Faxed GILLIAN note to [facility]. 12/2021 "Preop cardiac evaluation-negative dobutamine stress echo. Normal ejection fraction. Low to intermediate cardiac risk for surgery" Patient notified that Dr. Nguyen recommends to follow up after surgery. She states she will call back to schedule after her surgery. [facility] Pinky Benavides RN [facility] 2023-04-05 16:23:28 Last seen . Routed to Dr. Nguyen for chart review. [facility] 2023-04-04 11:27:00 [id number] [place] [address] PATIENT NAME: VALENTINO DALAL ADMIT DATE: ACCOUNT NO: [id number] ROOM NO: AGE: 67 REPORT TYPE: ELECTROCARDIOGRAM SEX: F ADMITTING PHYSICIAN: ATTENDING PHYSICIAN:Vineet Weeks MD Order: [id number] Test Reason : PREOP CLEARNACE H/O HTN Test Date/Time Stamp: SunApr 04 2023 11:27:51 Blood Pressure : / mmHG Vent. Rate : 068 BPM Atrial Rate : 068 BPM P-R Int : 154 ms QRS Dur : 104 ms QT Int : 416 ms P-R-T Axes : 058 012 064 degrees QTc Int : 442 ms Normal sinus rhythm Normal ECG Confirmed by DOM FORBES MD ([id number]) on 04/08/2023 1:48:33 PM Referred By: Vineet Weeks Confirmed by:DOM FORBES MD PATIENT NAME: VALENTINO DALAL [facility] 2022-01-26 17:22:00 [id number] [place] [address] PATIENT NAME: VALENTINO DALAL ADMIT DATE: 01/19/22 ACCOUNT NO: [id number] [facility] 66 REPORT TYPE: OPERATIVE REPORT SEX: F ADMITTING PHYSICIAN:Fabricio Cartagena MD ATTENDING PHYSICIAN:Fabricio Cartagena MD OPERATION DATE: 01/19/2022 SURGEON: Vineet Weeks MD FINAL ASSEMBLER: Fabricio Cartagena MD PREOPERATIVE DIAGNOSIS: Periprosthetic fracture around internal prosthetic right hip joint, intraoperative fracture (ICD-10, #M97.01XA). POSTOPERATIVE DIAGNOSIS: Periprosthetic fracture around internal prosthetic right hip joint, intraoperative fracture (ICD-10, #M97.01XA). PROCEDURE: 1. Open reduction internal fixation of periprosthetic right femoral shaft fracture. 2. Open reduction [...] consult to fixate this complex right periprosthetic femur fracture involving the right femoral shaft and greater trochanter. After Dr. Cartagena had placed the femoral stem, the case was turned over to Dr. Weeks for stabilization of the greater trochanteric fracture as well [...] with bone reduction forceps and the greater trochanteric fracture as [...] Dr. Cartagena continued with the hip replacement arthroplasty and completed this revision and then performed wound [...] possible without the help of the skilled recovery assistant familiar with the procedure and capable safely performing the aforementioned tasks. Dictated By: Vineet Weeks MD Date Dictated: 01/26/2022 17:22:48 Date Transcribed: 01/26/2022 20:46:00 Tracey/ROHAN Receipt ID: [id number] Authenticated by Vineet Weeks MD On 01/30/2022 09:31:57 AM at 0931 PATIENT NAME: VALENTINO DALAL [facility] 2022-01-24 16:57:00 [facility] ([facility]) Clinical Note REPORT#:[id number] REPORT STATUS: Signed DATE:01/24/22 TIME: 1656 PATIENT: VALENTINO DALAL UNIT #: [id number] ROOM/BED: [address] : [birth year] AGE: 66 SEX: F ATTEND: Fabricio Cartagena MD ADM AUTHOR: Brant Inman MD * ALL edits or amendments must be made on the electronic/computer document * Clinical Note Note: Progress Note Dictated [id number] at 1701 RPT #:[id number] END OF REPORT [facility] 2022-01-24 15:31:00 [id number] [place] [address] PATIENT NAME: VALENTINO DALAL ADMIT DATE: 01/19/22 ACCOUNT NO: [id number] ROOM NO: Y.507 AGE: 66 REPORT TYPE: [...] The patient will also be discharged on [place] 5 mg q. 6 hours p.r.n. for pain, dispensed 32 pills. The patient is instructed to take it q. 6 hours p.r.n. for breakthrough pain symptoms. The patient to follow up with Dr. Cartagena in approximately 2 weeks. Dictated By: Brant Inman MD Date Dictated: 01/24/2022 15:31:37 Date Transcribed: 01/24/2022 17:20:57 SIM/MUR/YOLANDA/SHA Receipt ID: [id number] CC: Fabricio Cartagena MD Authenticated by Brant Inman MD On 01/31/2022 04:51:20 PM at 0451 PATIENT NAME: VALENTINO DALAL [facility] 2022-01-24 08:38:00 [facility] ([facility]) Discharge Summary REPORT#:[id number] REPORT STATUS: Signed DATE:01/24/22 TIME: 08 PATIENT: VALENTINO DALAL UNIT #: [id number] ROOM/BED: [facility]7-A : 56 AGE: 66 SEX: F ATTEND: Fabricio Cartagena MD ADM AUTHOR: Elida Yanes * ALL edits or amendments must be made on the electronic/computer document * General Information Discharge date: 01/24/22 Discharge diagnosis: RIGHT HIP LOOSE HARDWARE Hospital course: Discharge Diagnosis: Right Hip Degenerative Disease Procedure: Right Hip REVISION Arthroplasty Hospital Course and Findings The patient underwent the procedure without incident. Findings were significant for degenerative disease of the hip. The patient was hemodynamically and medically monitored during the postoperative period. Anticoagulation was instituted for postoperative DVT prophylaxis. The patient was progressively able to tolerate PO pain medications and the appropriate diet. Physical therapy was instituted, with a progressive ability to ambulate and perform exercises. The patient was eventually deemed stable and safe for discharge. At discharge, the patient was comfortable, with a controlled pain level. There were no chest or abdominal symptoms present. Discharge physical examination demonstrated stable vital signs and no acute distress. The patient had an intact wound with no significant drainage, and no calf tenderness and a negative Endy s sign bilaterally. There were no neurologic or vascular deficits or changes from the preoperative state. Disposition: Discharged to home Discharge Condition: Stable Instructions: Instruction sheet given to patient Activity: weight-bearing as instructed in the hospital. Weight bearing limitations were reviewed with the patient during the hospitalization. Diet: As per preoperatively Prescriptions 1. Pain Medications: As per discharge prescription, with progressive weaning as pain decreases 2. Anticoagulation: As per discharge prescription, or PreOp anticoagulant, as discussed with patient Follow-up Appointment: Patient instructed to arrange appointment for [...] Additional Discharge Routines: None at 0841 at 1648 [facility] #:[id number] END OF REPORT [facility] 2022-01-23 17:10:00 [facility] ([facility]) Clinical Note REPORT#:[id number] REPORT STATUS: Signed DATE:01/23/22 TIME: 1710 PATIENT: VALENTINO DALAL UNIT #: [id number] ROOM/BED: [address] : 56 AGE: 66 SEX: F ATTEND: Fabricio Cartagena MD ADM AUTHOR: Brant Inman MD * ALL edits or amendments must be made on the electronic/computer document * Clinical Note Note: Consult Note Dictated [id number] at 1713 RPT #:[id number] END OF REPORT [facility] 2022-01-23 13:06:00 [id number] [place] [address] PATIENT NAME: VALENTINO DALAL ADMIT DATE: 01/19/22 ACCOUNT NO: [id number] ROOM NO: [facility] AGE: 66 REPORT TYPE: CONSULTATION REPORT [...] medication management. The patient was admitted to [facility] on January 19. The patient had [...] supraventricular tachycardia. GASTROINTESTINAL: The patient does have epigastric pain. GENITOURINARY: The patient did have a hysterectomy. MUSCULOSKELETAL: As above. NEUROLOGICAL: As above. PSYCHIATRIC: The patient states in the past month, [...] mm in size. Extraocular movements, visual johnson intact. NEUROLOGIC: Mental status: [...] History of right femur fracture in May 2021. 2. Right hip hemiarthroplasty performed on or about 05/16/2021. 3. Loose hardware. 4. Right total hip arthroplasty revision. 5. Open reduction internal fixation of right femur fracture. 6. Musculoskeletal spasm, low back, right hip, right leg. 7. Hypertension. 8. Gastroesophageal reflux disease. 9. History of supraventricular tachycardia and cardiac ablation [...] Dictated: 01/23/2022 13:06:44 Date Transcribed: 01/23/2022 19:03:28 SIM/LAT/BRANT/ROLO Receipt ID: [id number] Authenticated by Brant Inman MD On 01/31/2022 04:51:16 PM at 0451 PATIENT NAME: VALENTINO DALAL [facility] 2022-01-23 07:05:00 [facility] ([facility]) Pain Management Progress Note REPORT#:[id number] REPORT STATUS: Signed DATE:01/23/22 TIME: 704 PATIENT: VALENTINO DALAL UNIT #: [id number] ROOM/BED: [address] : 56 AGE: 66 SEX: F ATTEND: Fabricio Cartagena MD ADM AUTHOR: Indra Humphries APRN * ALL edits or amendments must be made on the electronic/computer document * Subjective Chief complaint: Post OP Pain Management Requested by Surgeon Right hip and Right Leg pain s/p Right Hip Arthroplasty Revision with ORIF of periprosthetic femur fracture HPI: Interval History: Right hip and Right Leg pain s/p Right Hip Arthroplasty Revision with ORIF of periprosthetic femur fracture. Consultation requested by Dr Cartagena to initiate PROPULSION GENERATOR REPAIRER pump for patient last night. Patient reports her pain is primarily in the right anterior and lateral thigh area, not so much the hip. Due to the pain, patient's ability to tolerate walking is limited to the door of her room. Patient rated severe pain 9-10/10 with an inability to sleep. Patient reports significant improved pain management with the PROPULSION GENERATOR REPAIRER pump, now 3-4 /10. Patient reports finally getting a good night's [...] 84 16 152/74 99.8 98 Room air 01/23 1920 Room air History: PMH: SVT-Ablation 1996, HTN, GERD, FORMER SMOKER 3PPD X 40 YRS POD: 4 Medication: DILAUDID Pump settings: BASAL RATE: O DOSE: 0.1MG DELAY: 8 MIN PROPULSION GENERATOR REPAIRER Use: Moderate Activity status: OOB Pain: 3/10 Physical Exam: VAS: 310 LOS: Awake, Alert, Oriented Resp Quality: Regular, Unlabored, Even Side Effects: None PATIENT RESTING IN BED WATCHING TV AND APPEARS COMFORTABLE AND WELL RESTED Plan: CONTINUE PROPULSION GENERATOR REPAIRER PUMP PATIENT TO BE SEEN BY DR INMAN IN THE AM. at 0732 RPT #:[id number] END OF REPORT [facility] 2022-01-22 09:09:00 [facility] ([facility]) Clinical Note REPORT#:[id number] REPORT STATUS: Signed DATE:01/22/22 TIME: 908 PATIENT: VALENTINO DALAL UNIT #: [id number] ROOM/BED: [address] : 56 AGE: 66 SEX: F ATTEND: Fabricio Cartagena MD ADM AUTHOR: Fabricio Cartagena MD * ALL edits or amendments must be made on the electronic/computer document * Clinical Note Note: Able to [...] of Toradol, as it helps significantly with her pain Last Documented: Result Date Time Pulse Ox 95 01/22 717 B/P 158/49 01/22 717 B/P Mean 85.5 01/22 717 O2 Delivery Room air 01/22 717 Temp 96.4 01/22 717 Pulse 70 01/22 717 Resp 18 01/22 717 FiO2 32 01/20 0306 O2 Flow Rate 3 01/20 0306 at 0910 RPT #:[id number] END OF REPORT [facility] 2022-01-21 11:20:00 [facility] Orthopaedic Progress Note REPORT#:[id number] REPORT STATUS: Signed DATE:01/21/22 TIME: 1120 PATIENT: VALENTINO DALAL UNIT #: [id number] ROOM/BED: [address] : 56 AGE: 66 SEX: F ATTEND: Fabricio Cartagena MD ADM AUTHOR: Elida Yanes * ALL edits or amendments must be made on the electronic/computer document * Diagnosis, Assessment Plan Free text A P: Comfortable. Pain moderate. No Shortness of breath or chest symptoms. Afebrile VSS Alert, oriented, no acute distress Wound clean and dry. No significant drainage. Neurologic and vascular systems intact distally. (-) Endy s (-) Calf tenderness A/P: s/p Joint Arthroplasty 1)Anticoagulation instituted 2)PT progressing 3)Following labs 4)Discharge planning - will plan to keep patient here at least one more night due to issues with pain control. at 1122 at 0908 RPT #:[id number] END OF REPORT [facility] 2022-01-20 10:40:00 [facility]) Orthopaedic Progress Note REPORT#:[id number] REPORT STATUS: Signed DATE:01/20/22 TIME: 1040 PATIENT: VALENTINO DALAL UNIT #: [id number] ROOM/BED: [address] : 56 AGE: 66 SEX: F ATTEND: Fabricio Cartagena MD ADM AUTHOR: Hafsa Mathew * ALL edits or amendments must be made on the electronic/computer document * Subjective HPI: Patient sleeping upon exam. No family in the room. Objective VS: Last Documented: Result Date Time [...] Ketorolac Tromethamine (TORADOL) 15 MG Q6H PRN PRN [...] 200 MG .STK-MED ONE IV (DC) Rocuronium Robards (Rocuronium Robards 10 mg/mL) 50 MG .STK-MED ONE IV ( DC) Sodium Chloride (SODIUM CHLORIDE 0.9%) 100 ML .STK-MED ONE IV (DC) Sugammadex Sodium (Bridion) 200 MG .STK-MED ONE IV (DC) Tranexamic Acid (CYKLOKAPRON) 2,000 MG .STK-MED ONE IV (DC) Vecuronium Robards (NORCURON) 10 MG .STK-MED ONE IV (DC) [...] 500 MG PREOP ONCE PO (DC) Physical Exam Extremities: Right femur with dressing C/D/I. Diagnosis, Assessment Plan Free text A P: POD#1 s/p right JEAN CARLOS with ORIF of periprosthetic fracture - DVT prophylaxis - PT - Pain control - CM on board for d/c planning at 1043 at 0902 RPT #:[id number] END OF REPORT [facility] 2022-01-20 07:00:00 [facility] ([facility]) Orthopaedic Progress Note REPORT#:[id number] REPORT STATUS: Signed DATE:01/20/22 TIME: 0700 PATIENT: VALENTINO DALAL UNIT #: [id number] ROOM/BED: [address] : 56 AGE: 66 SEX: F ATTEND: Fabricio Cartagena MD ADM AUTHOR: Elida Yanes * ALL edits or amendments must be made on the electronic/computer document * Diagnosis, Assessment Plan Free text A P: Comfortable. Pain mild-moderate. No Shortness of breath or chest symptoms. Afebrile VSS Alert, oriented, no acute distress Wound clean and dry. No significant drainage. Neurologic and vascular systems intact distally. (-) Endy s (-) Calf tenderness A/P: s/p Joint Arthroplasty 1)Anticoagulation instituted 2)PT progressing 3)Following labs 4)Discharge planning at 0700 at 0952 RPT #:[id number] END OF REPORT [facility] 2022-01-20 06:58:00 [id number] [facility] [address] [place] [address] PATIENT NAME: VALENTINO DALAL ADMIT DATE: 01/19/22 ACCOUNT NO: [id number] ROOM NO: [facility] AGE: 66 REPORT TYPE: OPERATIVE REPORT SEX: F ADMITTING PHYSICIAN:Fabricio Cartagena MD ATTENDING PHYSICIAN:Fabricio Cartagena MD OPERATION DATE: PREOPERATIVE DIAGNOSIS: Loosening of right hip arthroplasty. POSTOPERATIVE DIAGNOSIS: Loosening of right hip arthroplasty and femur fracture. PROCEDURES: 1. Revision right total hip replacement. 2. Open reduction and internal fixation of right femur. SURGEON: Fabricio Dawson M.D. FINAL ASSEMBLER: Vineet Weeks M.D. COMPONENTS USED IMPLANTS: Rubi Biomet Janusz 17 x 250 fully porous coated cylindrical stem with a 58 body and a -6 dual mobility 44 mm femoral head, a Biomet PPS 56 mm acetabular component. ESTIMATED BLOOD LOSS: 700 mL. FINDINGS: 1. Loosening of femoral stem. 2. Minmimal, cracked proximal cement mantle. 3. Well interdigitated distal cement mantle. 4. Acetabular wear. 5. Right leg was 1.5 cm long preoperatively 6. Cement migration and interdigitation well distal to the stem. PROCEDURE IN DETAIL: The patient was brought to the operating room and placed in supine position. After induction of anesthesia, she was turned to the left side and secured to the operating table. Right hip area was sterilely prepped and draped. Incision was made through the patient's old incision, but the entire old incision was not necessarily at first. Dissection was [...] retracted anteriorly and retractors were placed around the acetabulum. 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 Labrectomy was performed and soft tissue was removed from the acetabular fossa and then reaming was performed. A size 55 reamer created excellent bleeding bone in all the santizo areas and a 56 mm acetabular component was impacted into position in the correct amount of anteversion and lateral opening. This had an excellent scratch fit. A trial dual mobility liner was placed. The decision was made to use a dual mobility in this patient who was ligamentously lax and high risk for dislocation, given the revision situation. We next came to the painstaking process of cement removal. I worked on it for an [...] fracture site, I had significant difficulty removing this well interdigitated distal cement. I had to use the Ultra drive as well as osteotomes for several centimeters until I was able to remove all the cement through the fracture site and removed the plastic plug. Next, the decision was made to proceed with implantation of a hip stem all the way down toward the knee, taking advantage of the intact distal diaphyseal region for fixation. Using a stem with distal fixation hasd been the plan all along, so these instruments were already available. This was reamed over a guidewire and had excellent cortical chatter at 17 mm. The stem was then after thorough irrigation opened and impacted into position and had an excellent scratch fit. A body was prepared for it. A trial body was placed and the hip was relocated found to have excellent stability in flexion, internal rotation, with position of sleep, in extension and external rotation. A trial x-ray demonstrated adequate positioning and sizing of the components. The hip was once again redislocated. The final body was impacted into position and locked down and the hip was relocated once again. Next, a definitive fracture fixation was performed by Dr. Weeks as per his operative report. After thorough irrigation and a Betadine soak, the external rotators and capsule were closed back to the trochanter through drill holes. PATIENT NAME: VALENTINO DALAL The vastus lateralis was closed over the hardware as much as possible, and then the gluteus joyce and IT band were closed using Quill suture. Subcutaneous tissues were closed in a multilayered fashion using Vicryl and Monocryl suture and david were used for skin. Sterile dressing was applied. The patient was awakened and transported to the recovery room in stable condition having tolerated the procedure well. Dictated By: Fabricio Cartagena MD Date Dictated: 01/20/2022 06:58:26 Date Transcribed: 01/20/2022 07:45:22 /ZOHRA/BRANT Receipt ID: [id number] Authenticated and Edited by Fabricio Cartagena MD On 01/22/22 7:58:29 AM at 0801 PATIENT NAME: VALENTINO DALAL [facility] 2022-01-19 14:23:00 [facility] ([facility]) Brief Op Note REPORT#:[id number] REPORT STATUS: Signed DATE:01/19/22 TIME: 1423 PATIENT: VALENTINO DALAL UNIT #: [id number] ROOM/BED: [place] [address] : 56 AGE: 66 SEX: F ATTEND: Fabricio Cartagena MD ADM AUTHOR: Fabricio Cartagena MD * ALL edits or amendments must be made on the electronic/computer document * Op/Inv Proc Note - Brief Pre-procedure diagnosis: R LOOSE JEAN CARLOS Post-procedure diagnosis: same as pre procedure dx Procedures performed: R REV JEAN CARLOS Primary Surgeon: OSIEL Co-surgeon: JENNIFER Screwdown Operator(s): Lana YANES PA-C Findings: LOOSE STEM, ACETABULAR WEAR WELL-EMBEDDED DISTAL CEMENT, WEAKENED BONE Complications: INTRAOP FEMUR FX Estimated blood loss in ml's: 700 CC Specimens removed/altered: none at 2055 RPT #:[id number] END OF REPORT [facility] 2021-11-21 11:37:00 [id number] [facility] [address] [place] [address] PATIENT NAME: VALENTINO DALAL ADMIT DATE: ACCOUNT NO: [id number] ROOM NO: AGE: 66 REPORT TYPE: ELECTROCARDIOGRAM SEX: F ADMITTING PHYSICIAN:Fabricio Cartagena MD ATTENDING PHYSICIAN:Fabricio Cartagena MD Order: [id number] Test Reason : PRE-OP CLEARANCE HTN Test Date/Time Stamp: Mon Sep 12 2022 11:37:34 Blood Pressure : / mmHG Vent. Rate : 058 BPM Atrial Rate : 058 BPM P-R Int : 112 ms QRS Dur : 098 ms QT Int : 424 ms P-R-T Axes : 012 -08 061 degrees QTc Int : 416 ms Sinus bradycardia Otherwise normal ECG When compared with ECG of 07-DEC-2014 12:02, No significant change was found Confirmed by DOM FORBES MD ([id number]) on 11/22/2021 5:35:29 PM Referred By: Fabricio Cartagena Confirmed by:DOM FORBES MD PATIENT NAME: VALENTINO DALAL [facility]
--- NOTE | 2024-05-08 12:51 | RAD REPORT ---
EXAMINATION: Humerus Left CLINICAL INDICATION: Female, 68 years old. PAIN COMPARISON: No prior exam. VIEWS: Two views FINDINGS: No acute fracture. Other: n/a IMPRESSION: No acute osseous abnormality involving the left humerus.
--- NOTE | 2024-05-08 13:16 | EDPHYS ---
Physician Documentation [facility] Name: Bernadine Dalal Age: 68 yrs Sex: Female : 1955 Arrival Date: 05/08/2024 Time: 11:36 Bed 14 Private MD: ED Physician Jevon Hernandez HPI: 05/08 13:13 This 68 yrs old Female presents to ER via Ambulatory with complaints of Shoulder Pain, rn Arm Pain. 13:13 The patient or guardian complains of an injury, pain. Modifying factors: the symptoms rn are alleviated by remaining still, The symptoms are aggravated by lifting weight, movement, rotation of arm. Severity of symptoms: At their worst the symptoms were mild, in the emergency department the symptoms are unchanged. The patient has not experienced similar symptoms in the past. 13:13 Patient reports fall last week and injured right arm, more recent fall and landed on rn left shoulder. Can move left shoulder but hurts to rotate and lift heavy objects. No other injury.. Historical: - Allergies: 12:11 PENICILLINS; hb 12:11 Vancomycin; hb - PMHx: 12:11 BRAIN CYST; Chronic pain; Hypertensive disorder; Migraines; prolapsed uterus; RA; SVT; hb - PSHx: 12:11 Left hip replacement; hip SX with hardware; Right hip replacement; Total abdominal hb hysterectomy; - Immunization history:: Adult Immunizations up to date. - Infectious Disease History:: Denies. - Social history:: Smoking status: Patient denies any tobacco usage or history of. - Family history:: not pertinent. - Hospitalizations: : No recent hospitalization is reported. ROS: 13:13 Constitutional: Negative for fever, chills, and weight loss, MS/Extremity: Positive for rn left shoulder injury and pain Neuro: Negative for weakness or numbness Exam: 13:13 Constitutional: This is a well developed, well nourished patient who is awake, alert, rn and in no acute distress. MS/ Extremity: Pulses equal, no cyanosis. Neurovascular intact. Mild pain to palpation left proximal humerus with painful range of motion. No gross deformity. Pain is all proximal humerus. No tenderness along clavicle/elbow/forearm/hand or wrist. Vital Signs: 12:10 BP 169 / 82; Pulse 100; Resp 18; Temp 97.8; Pulse Ox 98% on R/A; Weight 74.84 kg; hb Height 5 ft. 6 in. ; Pain 10/10; 12:10 Body Mass Index 26.63 (74.84 kg, 167.64 cm) hb 12:10 Pain Scale: Adult hb MDM: 11:41 Medical Screening Exam initiated rn 13:13 Differential diagnosis: humeral head fracture, Ligamentous or tendon injury, rotator rn cuff injury. Data reviewed: vital signs, nurses notes, radiologic studies, plain films, and as a result, I will discharge patient. Counseling: I had a detailed discussion with the patient and/or guardian regarding the historical points, exam findings, and any diagnostic results supporting the discharge/admit diagnosis, radiology results, the need for outpatient follow up, to return to the emergency department if symptoms worsen or persist or if there are any questions or concerns that arise at home. Special discussion: I discussed with the patient/guardian in detail that at this point there is no indication for admission to the hospital. It is understood, however, that if the symptoms persist or worsen the patient needs to return immediately for re-evaluation. 05/08 12:00 Order name: XRAY Humerus LEFT; Complete Time: 13:02 hb 05/08 13:02 Order name: Sling; Complete Time: 13:28 rn Administered Medications: No medications were administered Disposition Summary: 05/08/24 13:16 Discharge Ordered Notes: Location: Home rn Problem: new rn Symptoms: have improved rn Condition: Stable rn Diagnosis - Contusion of left shoulder rn Followup: rn - With: Private Physician - When: As needed - Reason: Recheck today's complaints, Re-evaluation by your physician Discharge Instructions: - Discharge Summary Sheet rn - Contusion rn Forms: - Medication Reconciliation Form rn - Antibiotic spring internship - Prescription Opioid Use rn - Patient Portal Instructions rn - Leadership Thank You Letter rn Prescriptions: - Tramadol 50 mg Oral Tablet - take 1 tablet ORAL route every 8 hours as needed; 12 tablet; Refills: 0, rn Product Selection Permitted Signatures: Dispatcher [employer] Jevon Roque MD MD rn Baxter, Heather, RN RN
--- NOTE | 2024-05-08 13:16 | ER ---
Nurse's Notes [facility] Name: Bernadine Dalal Age: 68 yrs Sex: Female : 1955 Arrival Date: 05/08/2024 Time: 11:36 Bed 14 Private MD: Diagnosis: Contusion of left shoulder Presentation: 05/08 12:10 Chief complaint: Left shoulder pain after mechanical fall from standing 1 week ago. hb Coronavirus screen: At this time, the client does not indicate any symptoms associated with coronavirus-19. Ebola Screen: No symptoms or risks identified at this time. Initial Sepsis Screen: Does the patient meet any 2 criteria? No. Patient's initial sepsis screen is negative. Does the patient have a suspected source of infection? No. Patient's initial sepsis screen is negative. Risk Assessment: Do you want to hurt yourself or someone else? Patient reports no desire to harm self or others. Onset of symptoms was May 02, 2024. 12:10 Method Of Arrival: Ambulatory hb 12:10 Acuity: JODEE 4 hb Historical: - Allergies: 12:11 PENICILLINS; hb 12:11 Vancomycin; hb - PMHx: 12:11 BRAIN CYST; Chronic pain; Hypertensive disorder; Migraines; prolapsed uterus; RA; SVT; hb - PSHx: 12:11 Left hip replacement; hip SX with hardware; Right hip replacement; Total abdominal hb hysterectomy; - Immunization history:: Adult Immunizations up to date. - Infectious Disease History:: Denies. - Social history:: Smoking status: Patient denies any tobacco usage or history of. - Family history:: not pertinent. - Hospitalizations: : No recent hospitalization is reported. Screenin:43 [facility] ED Fall Risk Assessment (Adult) History of falling in the last 3 months, cm10 including since admission Yes- single mechanical fall (1 pt) Confusion or Disorientation No (0 pts) Intoxicated or Sedated No (0 pts) Impaired Gait No (0 pts) Mobility Assist Device Used No (0 pt) Altered Elimination No (0 pt) Score/Fall Risk Level 0 - 2 = Low Risk Oriented to surroundings, Maintained a safe environment, Hourly rounding (assess needs \T\ fall precautionary measures) done. Abuse screen: Denies threats or abuse. Denies injuries from another. Nutritional screening: No deficits noted. Tuberculosis screening: No symptoms or risk factors identified. Assessment: 13:45 General: Appears in no apparent distress. comfortable, Behavior is calm, cooperative. cm10 Pain: Complains of pain in anterior aspect of left shoulder. Neuro: No deficits noted. Level of Consciousness is awake, alert, obeys commands, Oriented to person, place, time, situation, Appropriate for age. Respiratory: No deficits noted. Airway is patent Respiratory effort is even, unlabored, Respiratory pattern is regular, symmetrical. Musculoskeletal: Reports pain in anterior aspect of left shoulder. Vital Signs: 12:10 BP 169 / 82; Pulse 100; Resp 18; Temp 97.8; Pulse Ox 98% on R/A; Weight 74.84 kg; hb Height 5 ft. 6 in. ; Pain 10/10; 12:10 Body Mass Index 26.63 (74.84 kg, 167.64 cm) hb 12:10 Pain Scale: Adult hb ED Course: 11:40 Patient arrived in ED. cj3 11:41 Jevon Hernandez MD is Attending Physician. rn 12:11 Triage completed. hb 12:11 Arm band placed on. hb 12:27 XRAY Humerus LEFT In Process Unspecified. EDMS 12:56 Virginia Faust, RN is Primary Nurse. cm10 13:43 Patient has correct armband on for positive identification. Provided Education on: cm10 Follow-up instructions. 13:43 No provider procedures requiring assistance completed. Patient did not have IV access cm10 during this emergency room visit. Sling applied to left arm. Administered Medications: No medications were administered Medication: 13:44 VIS not applicable for this client. cm10 Outcome: 13:16 Discharge ordered by . rn 13:46 Discharged to home ambulatory, with family, cm10 13:46 Condition: good 13:46 Discharge instructions given to patient, Instructed on discharge instructions, follow up and referral plans. Demonstrated understanding of instructions, follow-up care, 13:46 Patient left the ED. cm10 Signatures: Dispatcher [employer] EDMS Jevon Hernandez MD MD rn Baxter, Heather RN Virginia Huerta RN RN cm10 Johnson, Celeste cj3
[2024-05-08 14:13] VITALS: BP 169/82; TEMP 97.8; O2SAT 98
== END 2024-05-08 13:46 | disposition home or self-care (01) ==
LOC: ER 11:36
DX: S40.011A Contusion of right shoulder, initial encounter (principal); I10 Essential (primary) hypertension; M06.9 Rheumatoid arthritis, unspecified; Z88.0 Allergy status to penicillin; Z88.1 Allergy status to other antibiotic agents
CPT/HCPCS: 99283

== ENCOUNTER 2024-07-14 17:08 | Emergency (ER) | payer OTHER ==
[2024-07-14] MEDS ORDERED: PHENYLEPHRINE 0.5% NOSE 15ML NAS ONE (18:00)
--- NOTE | 2024-07-14 18:54 | RAD REPORT ---
EXAMINATION: CT MAXILLOFACIAL WITHOUT CONTRAST CLINICAL INDICATION: Facial pain. Status post fall TECHNIQUE: Axial images were obtained through the facial bones and orbits without intravenous contras t. Sagittal and coronal reconstructions were created from the data. One or more of the following dose reduction techniques were used: Automated exposure control, adjustment of the mA and/or kV accor ding to patient size, and/or iterative reconstruction. Unless otherwise specified, incidental findings do not require dedicated imaging follow-up. COMPARISON: No prior exam. FINDINGS: No fracture seen. No TMJ dislocation. The globes are intact. No fluid within the sinuses. IMPRESSION: No fracture seen
--- NOTE | 2024-07-14 18:56 | RAD REPORT ---
EXAM: CT brain without contrast HISTORY: Fall with head injury. COMPARISON: None TECHNIQUE: Multiple contiguous axial images were obtained and a CT of the brain without contrast.. Sagittal and coronal reconstruction performed. Automated exposure control, adjustment of the mA and/or kV according to patient size, and/or iterative reconstruction. Unless otherwise specified, incidental f indings do not require dedicated imaging follow-up FINDINGS: An intracranial bleed is not seen Ventricles are normal caliber No extra-axial fluid collection noted 1 cm partially calcified mass along the left parietal convexity unchanged. No fluid within the visual ized sinuses or mastoids noted. IMPRESSION: No acute intracranial abnormality noted. If the patient continues to have symptoms to suggest an acute intracranial abnormality then MRI of th e brain would be recommended.
--- NOTE | 2024-07-14 19:13 | ER ---
Nurse's Notes [facility] Name: Bernadine Dalal Age: 68 yrs Sex: Female : 1955 Arrival Date: 07/14/2024 Time: 17:08 Bed 13 Private MD: Diagnosis: Unspecified injury of head, initial encounter;Epistaxis Presentation: 07/14 17:34 Chief complaint: Patient states: she fell yesterday at approx 1000 am. patient reports ap3 left arm pain, right knee pain, left eye brow pain, a headache, and a nose bleed that has been ongoing since this morning. patient currently rates her pain as a 9/10 on the pain scale. Patient denies LOC and denies being on blood thinners. Coronavirus screen: At this time, the client does not indicate any symptoms associated with coronavirus-19. Ebola Screen: No symptoms or risks identified at this time. Initial Sepsis Screen: Does the patient meet any 2 criteria? No. Patient's initial sepsis screen is negative. Does the patient have a suspected source of infection? No. Patient's initial sepsis screen is negative. Risk Assessment: Do you want to hurt yourself or someone else? Patient reports no desire to harm self or others. Onset of symptoms was July 13, 2024. 17:34 Method Of Arrival: Ambulatory ap3 17:34 Acuity: JODEE 3 ap3 Triage Assessment: 17:37 General: Appears in no apparent distress. Behavior is calm, cooperative, appropriate ap3 for age. Pain: Complains of pain in left arm and right knee and outer aspect of left eyebrow and left eye Pain began 1 day ago. Neuro: Level of Consciousness is awake, alert, obeys commands, Oriented to person, place, time, situation, Appropriate for age Reports headache. Cardiovascular: Patient's skin is warm and dry. Respiratory: Airway is patent Respiratory effort is even, unlabored, Respiratory pattern is regular, symmetrical. Historical: - Allergies: 17:36 PENICILLINS; ap3 17:36 Vancomycin; ap3 17:36 Bactrim; ap3 - PMHx: 17:36 BRAIN CYST; Chronic pain; Hypertensive disorder; Migraines; prolapsed uterus; RA; SVT; ap3 - Immunization history:: Client reports receiving the 2nd dose of the Covid vaccine, Last tetanus immunization: up to date Flu vaccine is not up to date. - Infectious Disease History:: Denies. - Social history:: Smoking status: Patient denies any tobacco usage or history of. Screenin:37 Abuse screen: Denies threats or abuse. Nutritional screening: No deficits noted. ap3 Tuberculosis screening: No symptoms or risk factors identified. Assessment: 17:45 Reassessment: Patient appears in no apparent distress at this time. Patient and/or db family updated on plan of care and expected duration. Pain level reassessed. Patient is alert, oriented x 3, equal unlabored respirations, skin warm/dry/pink. General: Appears in no apparent distress. comfortable, Behavior is calm, cooperative. Pain: Complains of pain in face and right leg and left arm and right knee. Neuro: Level of Consciousness is awake, alert, obeys commands, Oriented to person, place, time, situation. Respiratory: Airway is patent Respiratory effort is even, unlabored, Respiratory pattern is regular, symmetrical. EENT: Nares with bleeding noted on right. Derm: Skin has skin tears on FACE. 19:12 General: Appears in no apparent distress. comfortable, Behavior is calm, cooperative, rg5 appropriate for age. Neuro: Level of Consciousness is awake, alert, obeys commands, Oriented to person, place, time, situation. Cardiovascular: Patient's skin is warm and dry. Respiratory: Airway is patent Trachea midline Respiratory effort is even, unlabored, Respiratory pattern is regular, symmetrical. GI: No signs and/or symptoms were reported involving the gastrointestinal system. : No signs and/or symptoms were reported regarding the genitourinary system. EENT: Musculoskeletal: Circulation, motion, and sensation intact. Range of motion: intact in all extremities. Vital Signs: 17:34 BP 158 / 79; Pulse 92; Resp 17; Temp 98.5; Pulse Ox 100% ; Weight 76.2 kg; Height 5 ft. ap3 6 in. ; Pain 9/10; 18:05 Pulse 85; Resp 16; Pulse Ox 97% ; db 19:11 BP 159 / 99; Pulse 86; Resp 18; Pulse Ox 97% ; Pain 0/10; rg5 17:34 Body Mass Index 27.12 (76.20 kg, 167.64 cm) ap3 17:34 Pain Scale: Adult ap3 19:11 Pain Scale: Adult rg5 Hanna Coma Score: 17:37 Eye Response: spontaneous(4). Motor Response: obeys commands(6). Verbal Response: ap3 oriented(5). Total: 15. Trauma Score (Adult): 17:37 Eye Response: spontaneous(1); Verbal Response: oriented(1); Motor Response: obeys ap3 commands(2); Systolic BP: > 89 mm Hg(4); Respiratory Rate: 10 to 29 per min(4); [place] Score: 15; Trauma Score: 12 ED Course: 17:20 Patient arrived in ED. cj3 17:20 [facility] Roy [facility]C [facility] kb 17:20 Jevon Hernandez MD is Attending Physician. kb 17:36 Triage completed. ap3 17:37 Patient maintains SpO2 saturation greater than 95% on room air. ap3 17:38 Arm band placed on right wrist. ap3 17:55 Arabella Canales, RN is Primary Nurse. db 18:05 CT Head Brain wo Cont In Process Unspecified. EDMS 18:05 CT Facial Bones W/O Con In Process Unspecified. EDMS 18:10 Patient moved back from CT. db 18:19 Patient has correct armband on for positive identification. Bed in low position. Call db light in reach. Side rails up X 1. Pulse ox on. NIBP on. Warm blanket given. Pillow given. 19:11 Cholo Meza, RN is Primary Nurse. rg5 19:24 No provider procedures requiring assistance completed. Patient did not have IV access rg5 during this emergency room visit. Administered Medications: 17:55 Drug: Filipe-Synephrine Intranasal [place] 0.5 % 2 sprays Intranasal once Route: Intranasal; db Site: right nare; 19:01 Follow up: Response: No adverse reaction db Medication: 18:19 VIS not applicable for this client. db Outcome: 19:12 Discharge ordered by . kb 19:24 Discharged to home ambulatory, rg5 19:24 Condition: stable 19:24 Discharge instructions given to patient, 19:25 Patient left the ED. rg5 Signatures: Dispatcher [employer] EDPA Geovanna Roy FNP-C FNP-Ckb Prokisch, Amanda, RN RN ap3 Arabella Canales, RN RN db Cholo Meza, TAMMY MUNOZ rg5 Julius, April cj3
--- NOTE | 2024-07-14 19:13 | EDPHYS ---
Physician Documentation [facility] Name: Bernadine Dalal Age: 68 yrs Sex: Female : 1955 Arrival Date: 07/14/2024 Time: 17:08 Bed 13 Private MD: ED Physician Jevon Hernandez HPI: 07/14 17:26 This 68 yrs old Female presents to ER via Unassigned with complaints of Fall Injury, kb Facial Injury - EYEBROW, Arm Injury, Nose Bleed. 17:26 Pt is a 68 year old female who presents for headache and nosebleed. States her dog kb tripped her yesterday, causing her to fall and hit her face. Reports she has had a headache since then and a nosebleed since about 1000 this morning. Denies loc. Ambulates with steady gait. . Historical: - Allergies: 17:36 PENICILLINS; ap3 17:36 Vancomycin; ap3 17:36 Bactrim; ap3 - PMHx: 17:36 BRAIN CYST; Chronic pain; Hypertensive disorder; Migraines; prolapsed uterus; RA; SVT; ap3 - Immunization history:: Client reports receiving the 2nd dose of the Covid vaccine, Last tetanus immunization: up to date Flu vaccine is not up to date. - Infectious Disease History:: Denies. - Social history:: Smoking status: Patient denies any tobacco usage or history of. ROS: 17:26 Constitutional: As per HPI kb Exam: 17:26 Constitutional: This is a well developed, well nourished patient who is awake, alert, kb and in no acute distress. Cardiovascular: Regular rate Respiratory: Respirations even and unlabored. No increased work of breathing. Talking in full sentences Skin: Warm, dry with normal turgor. Normal color. MS/ Extremity: Pulses equal, no cyanosis. Neurovascular intact. Full, normal range of motion. Neuro: Awake and alert, GCS 15, oriented to person, place, time, and situation. 17:26 Head/face: Noted is no obvious of injury or deformity except a laceration(s), that is superficial, 2 cm(s), of the outer aspect of left eyebrow, 17:26 ENT: Nose: bleeding, is seen from the right nare, and is minimal, Vital Signs: 17:34 BP 158 / 79; Pulse 92; Resp 17; Temp 98.5; Pulse Ox 100% ; Weight 76.2 kg; Height 5 ft. ap3 6 in. ; Pain 9/10; 18:05 Pulse 85; Resp 16; Pulse Ox 97% ; db 19:11 BP 159 / 99; Pulse 86; Resp 18; Pulse Ox 97% ; Pain 0/10; rg5 17:34 Body Mass Index 27.12 (76.20 kg, 167.64 cm) ap3 17:34 Pain Scale: Adult ap3 19:11 Pain Scale: Adult rg5 Hanna Coma Score: 17:37 Eye Response: spontaneous(4). Motor Response: obeys commands(6). Verbal Response: ap3 oriented(5). Total: 15. Trauma Score (Adult): 17:37 Eye Response: spontaneous(1); Verbal Response: oriented(1); Motor Response: obeys ap3 commands(2); Systolic BP: > 89 mm Hg(4); Respiratory Rate: 10 to 29 per min(4); [place] Score: 15; Trauma Score: 12 MDM: 17:21 Medical Screening Exam initiated kb 17:28 Differential diagnosis: closed head injury, contusion, fracture, laceration, epistaxis. kb Data reviewed: vital signs, nurses notes. 19:11 Counseling: I had a detailed discussion with the patient and/or guardian regarding the kb historical points, exam findings, and any diagnostic results supporting the discharge/admit diagnosis, radiology results, the need for outpatient follow up, an ENT specialist, to return to the emergency department if symptoms worsen or persist or if there are any questions or concerns that arise at home. ED course: Bleeding resolved at this time. . 07/14 17:25 Order name: CT Head Brain wo Cont; Complete Time: 18:58 kb 07/14 17:25 Order name: CT Facial Bones W/O Con; Complete Time: 18:58 kb 07/14 17:25 Order name: Misc. Order: nose clamp; Complete Time: 18:14 kb Administered Medications: 17:55 Drug: Filipe-Synephrine Intranasal [place] 0.5 % 2 sprays Intranasal once Route: Intranasal; db Site: right nare; 19:01 Follow up: Response: No adverse reaction db Disposition: 07/15 09:08 Co-signature as Attending Physician, Jevon Hernandez MD I reviewed the patient's care rn provided by the Advanced Practice Provider and agree with the diagnosis and treatment plan. Disposition Summary: 07/14/24 19:12 Discharge Ordered Notes: Location: Home kb Condition: Stable kb Diagnosis - Unspecified injury of head, initial encounter kb - Epistaxis kb Followup: kb - With: Emergency Department - When: As needed - Reason: Worsening of condition Followup: kb - With: Private Physician - When: 2 - 3 days - Reason: Recheck today's complaints, Continuance of care, Re-evaluation by your physician Discharge Instructions: - Discharge Summary Sheet kb - Head Injury, Adult, [id number] kb - Nosebleed, Adult, [id number] kb Forms: - Medication Reconciliation Form kb - Antibiotic Education kb - Prescription Opioid Use kb - Patient Portal Instructions kb - Leadership Thank You Letter kb Signatures: Dispatcher [employer] EDGeovanna Lundberg, [employer]SHMALLOW MAKER-C [employer]-[place] Jevon Hernandez MD MD rn Prokisch, Amanda, RN RN ap3 Arabella Canales RN RN db
[2024-07-15 01:33] VITALS: TEMP 98.5
[2024-07-15 01:35] VITALS: O2SAT 97
[2024-07-15 01:36] VITALS: BP 159/99
== END 2024-07-14 19:25 | disposition home or self-care (01) ==
LOC: ER 17:08
DX: S01.112A Laceration without foreign body of left eyelid and periocular area, initial encounter (principal); R04.0 Epistaxis; W01.0XXA Fall on same level from slipping, tripping and stumbling without subsequent striking against object, initial encounter
CPT/HCPCS: 70450; 70486; 76377; 99284